=== PATIENT | female | born 1935 ===

== ENCOUNTER 2017-04-04 10:30 | Inpatient (IN) | payer OTHER ==
[2017-04-04 10:34] VITALS: BMI 35.9
[2017-04-04] MEDS ORDERED: Albuterol-Ipratrop 3 mg / 0.5 (3 ml) UD ONE (11:04)
--- NOTE | 2017-04-04 11:08 | C.PDOC ---
History Of Present Illness 81 y/o female c/o progressive SOB and wheezing for the last 2 weeks. Patient notes using her inhaler with no relief. Denies fever, chills, chest pain, palpitations, diaphoresis. No abdominal pain, nausea, or vomiting. Time Seen by Provider: 04/04/17 10:48 Chief Complaint (Nursing): Shortness Of Breath History Per: Patient History/Exam Limitations: no limitations Onset/Duration Of Symptoms: Days (2 weeks) Current Symptoms Are (Timing): Still Present Initiating Event: Upper Respiratory Illness Quality: Burning Current Respiratory Medications: See Home Med List Severity: Mild Associated Symptoms: Productive Cough. denies: Fever, Chills Recent travel outside of the [place]: No Additional History Per: Patient Past Medical History Reviewed: Historical Data, Nursing Documentation, Vital Signs Vital Signs: Last Vital Signs Temp 97.9 F 04/04/17 13:45 Pulse 84 04/04/17 13:45 Resp 16 04/04/17 13:45 BP 147/78 04/04/17 13:45 Pulse Ox 95 04/04/17 13:45 - Medical History PMH: Arthritis, Asthma, Bronchitis, HTN, Hypercholesterolemia, Pneumonia Denies: Chronic Kidney Disease Other Surgeries: abdominal Family History: States: Unknown Family Hx - Social History Hx Tobacco Use: No Hx Alcohol Use: No Hx Substance Use: No - Immunization History Hx Tetanus Toxoid Vaccination: No Hx Influenza Vaccination: No Hx Pneumococcal Vaccination: No Review Of Systems Except As Marked, All Systems Reviewed And Found Negative. Constitutional: Negative for: Fever, Chills, Sweats Cardiovascular: Negative for: Chest Pain, Palpitations Respiratory: Positive for: Cough, Shortness of Breath, Wheezing Gastrointestinal: Negative for: Nausea, Vomiting, Abdominal Pain Physical Exam - Physical Exam Appears: Non-toxic, No Acute Distress Skin: Warm, Dry Head: Atraumatic, Normacephalic Oral Mucosa: Moist Throat: Normal, No Erythema Chest: Symmetrical, No Tenderness Cardiovascular: Rhythm Regular, No Murmur Respiratory: Decreased Breath Sounds, No Rales, No Rhonchi, Wheezing ( Expiratory wheezing), Other (No chest pain or edema) Gastrointestinal/Abdominal: Soft, No Tenderness Back: Normal Inspection Extremity: Normal ROM, No Pedal Edema, Capillary Refill (<2secs) Neurological/Psych: Oriented x3 Gait: Steady ED Course And Treatment - Laboratory Results Result Diagrams: 04/04/17 11:11 04/04/17 11:11 Lab Interpretation: Normal ECG: Interpreted By Me ECG Rhythm: Sinus Rhythm, Nonspecific Changes ECG Interpretation: Normal O2 Sat by Pulse Oximetry: 98 (Nebulizer/RA) Pulse Ox Interpretation: Normal - Radiology CXR: Interpreted by Me CXR Interpretation: Yes: No Acute Disease Progress Note: Treated with duoneb x 3 and solumedrol IV. On re-evaluation mild expiratory wheeze Reassessment Condition: Improved - Physician Consult Information Physician Contacted: Marvin Goetz Jr. Outcome Of Conversation: admit Medical Decision Making Medical Decision Making: Plans: * Blood labs * EKG * CXR * ALbuterol * IV fluids * UA * Nebulizer Disposition Discussed With Dr.: Marvin Goetz Jr. Doctor Will See Patient In The: Hospital - Disposition Disposition: HOSPITALIZED Disposition Time: 13:20 Condition: STABLE - POA Present On Arrival: None - Clinical Impression Clinical Impression: Asthma, Dyspnea, Dyspnea - Scribe Statement The provider has reviewed the documentation as recorded by the Scribe Radha raza All medical record entries made by the Scribe were at my direction and personally dictated by me. I have reviewed the chart and agree that the record accurately reflects my personal performance of the history, physical exam, medical decision making, and the department course for this patient. I have also personally directed, reviewed, and agree with the discharge instructions and disposition. Decision To Admit - Pt Status Changed To: Hospital Disposition Of: Inpatient - Admit Certification Admit to Inpatient:: After my assessment, the patient will require hospitalization for at least two midnights. This is because of the severity of symptoms shown, intensity of services needed, and/or the medical risk in this patient being treated as an outpatient. - InPatient: Physician Admission Certification: I certify that this patient requires 2 or more midnights of care for the following reason:: Dyspnea. Asthma Exacerbation - . Bed Request Type: Regular Patient Diagnosis: Asthma, Dyspnea, Dyspnea
--- NOTE | 2017-04-04 11:12 | RAD ---
HISTORY: SOB COMPARISON: No prior. TECHNIQUE: Chest PA and lateral FINDINGS: LUNGS: No active pulmonary disease. PLEURA: No significant pleural effusion identified. No pneumothorax apparent. CARDIOVASCULAR: Cardiomediastinal silhouette is remarkable for air-fluid level posterior to the heart compatible the patient's prior esophagectomy/gastric pull through surgery with the proximal anastomosis identified at the left parasagittal mediastinum at the thoracic inlet. OSSEOUS STRUCTURES: No significant abnormalities. VISUALIZED UPPER ABDOMEN: Normal. OTHER FINDINGS: None. IMPRESSION: No acute cardiopulmonary disease appreciated. Post esophagectomy/ gastric pull-through mediastinal changes again evident.
[2017-04-04 11:23] LABS: BASO % 0.4 % (0.0-2.0); EOS # 0.3 K/uL (0.0-0.7); HEMATOCRIT 37.1 % (34.0-47.0); LYMPH # 1.6 K/uL (1.0-4.3); LYMPH % 18.9 % (20.0-40.0); MEAN CELL VOLUME 95.8 fL (81.0-99.0); MEAN CORPUSCULAR HEMOGLOBIN 32.4 pg (27.0-31.0); MEAN CORPUSCULAR HGB CONC 33.8 g/dL (33.0-37.0); MEAN PLATELET VOLUME 8.2 fL (7.2-11.7); MONO # 0.7 K/uL (0.0-0.8); MONO % 8.8 % (0.0-10.0); RED CELL DISTRIBUTION WIDTH 14.4 % (11.5-14.5); WHITE BLOOD COUNT 8.5 K/uL (4.8-10.8)
[2017-04-04] MEDS: Albuterol-Ipratrop 3 mg / 0.5 (3 ml) UD IH SCH ×3 (11:25→12:00)
[2017-04-04 11:32] LABS: ALB/GLOB RATIO 1.1 (1.0-2.1); ALKALINE PHOSPHATASE 70 U/L (38-126); ALT/SGPT 35 U/L (9-52); AST/SGOT 17 U/L (14-36); BILIRUBIN,TOTAL 0.4 mg/dL (0.2-1.3); BLOOD UREA NITROGEN 26 mg/dL (7-17); CALCIUM 8.7 mg/dl (8.6-10.4); CARBON DIOXIDE 25 mmol/L (22-30); CHLORIDE 103 mmol/L (98-107); GFR AFRICAN-AMERICAN 52; GLUCOSE,RANDOM 99 mg/dL (65-105); POTASSIUM 3.7 mmol/L (3.6-5.2); SODIUM 137 mmol/L (132-148); TOTAL PROTEIN 7.3 g/dL (6.3-8.3)
[2017-04-04 13:34] LABS: RBC URINE < 1 /hpf (0-3); URINE BILIRUBIN NEGATIVE (NEGATIVE); URINE BLOOD NEGATIVE (NEGATIVE); URINE COLOR Yellow (YELLOW); URINE GLUCOSE (UA) NORMAL (Normal); URINE KETONE NEGATIVE (NEGATIVE); URINE LEUKOCYTE ESTERASE NEG Leu/uL (Negative); URINE PROTEIN NEGATIVE (NEGATIVE); URINE UROBILINOGEN NORMAL mg/dL (0.2-1.0); WBC URINE 2 /hpf (0-5)
--- NOTE | 2017-04-04 15:01 | CP.PCM.HP ---
History of Present Illness - History of Present Illness History of Present Illness: CC: SOB, Asthma Exacerbation HPI: 81 year old female with PMH of chronic asthma presented to the ED this morning complaining of shortness of breath and dyspnea, which has gradually worsened over the past two weeks. Patient awoke in the middle of the night unable to breathe, used an "inhalation machine" which alleviated her symptoms, and then fell back to sleep. However, she awoke again a few hours later unable to breathe, and this time, her "inhalation machine" did not help, and so the patient asked her son to bring her to the hospital. The patient has had prior hospitalizations associated with her chronic asthma and associated complications. When seen in the ED, she complained of continued SOB, dyspnea, productive cough, weakness, intermittent headache, intermittent sore throat, urinary frequency, easy bruising, and hand swelling. Patient denied fever, chills, vision and hearing changes, dizziness, chest pain, palpitations, nausea , vomiting, diarrhea, constipation, hematemesis, hematochezia, dysuria, hematuria, leg pain and swelling, weight change and recent illness. PMH: Asthma, Bronchitis, HTN, HLD, Acid Reflux, Arthritis, Pneumonia, Urinary Incontinence PSH: Esophagectomy, Hysterectomy Medications: Duoneb 3 ml q6, Breo Ellipta 100-25 Mcg daily, Valsartan-Hctz 80- 12.5 mg daily, Crestor 10 mg daily, Nexium 40 mg daily Allergies: Aspirin, Ciprofloxacin, Ciprofloxacin HCl, Nitrofuantoin, Nitrofuantoin Macrocrystalline, Penicillin, Sulfa Family History: Father from metastatic Prostate Cancer, mother from Tuberculosis Social History: Denies tobacco and drug use, drinks champagne and wine socially ; , lives with son Present on Admission - Present on Admission Any Indicators Present on Admission: No Review of Systems - Review of Systems All systems: reviewed and no additional remarkable complaints except (as per HPI ) Past Patient History - Infectious Disease Hx of Infectious Diseases: None - Past Medical History & Family History Past Medical History?: Yes - Past Social History Smoking Status: Never Smoked - CARDIAC Hx Hypercholesterolemia: Yes Hx Hypertension: Yes - PULMONARY Hx Asthma: Yes Hx Bronchitis: Yes Hx Pneumonia: Yes - NEUROLOGICAL Hx Neurological Disorder: No - HEENT Hx HEENT Problems: No Other/Comment: WEARS GLASSES - RENAL Hx Chronic Kidney Disease: No - ENDOCRINE/METABOLIC Hx Endocrine Disorders: No - HEMATOLOGICAL/ONCOLOGICAL Hx Blood Disorders: No - INTEGUMENTARY Hx Dermatological Problems: No - MUSCULOSKELETAL/RHEUMATOLOGICAL Hx Arthritis: Yes - GASTROINTESTINAL Hx Gastrointestinal Disorders: Yes Hx Gastroesophageal Reflux: Yes Other/Comment: hx of esophageal CA - GENITOURINARY/GYNECOLOGICAL Hx Genitourinary Disorders: Yes - PSYCHIATRIC Hx Substance Use: No - SURGICAL HISTORY Hx Surgeries: Yes Hx Breast Biopsy: Yes Hx Hysterectomy: Yes Hx Orthopedic Surgery: Yes (RTKR) Other/Comment: ESOPHAGEAL SX - ANESTHESIA Hx Anesthesia: Yes Hx Anesthesia Reactions: No Hx Malignant Hyperthermia: No Meds Allergies/Adverse Reactions: Allergies Allergy/AdvReac Type Severity Reaction Status Date / Time aspirin Allergy Severe RASH Verified 03/04/16 07:21 ciprofloxacin [From Cipro] Allergy Severe RASH Verified 03/04/16 07:21 ciprofloxacin HCl Allergy Severe RASH Verified 03/04/16 07:21 [From Cipro] nitrofurantoin Allergy Severe RASH Verified 03/04/16 07:21 [From Macrobid] nitrofurantoin Allergy Severe RASH Verified 03/04/16 07:21 macrocrystalline [From Macrobid] Penicillins Allergy Severe RASH Verified 03/04/16 07:21 Sulfa (Sulfonamide Allergy Severe RASH Verified 03/04/16 07:21 Antibiotics) Physical Exam - Constitutional Appears: Well, Non-toxic, No Acute Distress - Head Exam Head Exam: ATRAUMATIC, NORMAL INSPECTION, NORMOCEPHALIC - Eye Exam Eye Exam: EOMI - ENT Exam ENT Exam: Mucous Membranes Moist - Respiratory Exam Respiratory Exam: Decreased Breath Sounds, Wheezes, NORMAL BREATHING PATTERN - Cardiovascular Exam Cardiovascular Exam: REGULAR RHYTHM, RRR - Psychiatric Exam Psychiatric exam: Normal Affect, Normal Mood - Skin Skin Exam: Normal Color, Warm Results - Vital Signs Recent Vital Signs: Last Vital Signs Temp 97.9 F 04/04/17 13:45 Pulse 84 04/04/17 13:45 Resp 16 04/04/17 13:45 BP 147/78 04/04/17 13:45 Pulse Ox 98 04/04/17 14:53 - Labs Result Diagrams: 04/04/17 11:11 04/04/17 11:11 Labs: Laboratory Results - last 24 hr 04/04/17 04/04/17 04/04/17 11:11 11:11 13:30 WBC 8.5 RBC 3.87 Hgb 12.5 Hct 37.1 MCV 95.8 MCH 32.4 H MCHC 33.8 RDW 14.4 Plt Count 231 MPV 8.2 Neut % (Auto) 68.9 Lymph % (Auto) 18.9 L Hubbard % (Auto) 8.8 Eos % (Auto) 3.0 Baso % (Auto) 0.4 Neut # 5.9 Lymph # 1.6 Hubbard # 0.7 Eos # 0.3 Baso # 0.0 Sodium 137 Potassium 3.7 Chloride 103 Carbon Dioxide 25 Anion Gap 12 BUN 26 H Creatinine 1.2 Est GFR ( Amer) 52 Est GFR (Non-Af Amer) 43 Random Glucose 99 Calcium 8.7 Total Bilirubin 0.4 AST 17 ALT 35 Alkaline Phosphatase 70 CK-MB (Mass) 0.38 Troponin I < 0.0120 NT-Pro-B Natriuret Pep 409 Total Protein 7.3 Albumin 3.8 Globulin 3.5 Albumin/Globulin Ratio 1.1 Urine Color Yellow Urine Clarity Clear Urine pH 6.0 Ur Specific [place] 1.014 Urine Protein Negative Urine Glucose (UA) Normal Urine Ketones Negative Urine Blood Negative Urine Nitrate Negative Urine Bilirubin Negative Urine Urobilinogen Normal Ur Leukocyte Esterase Neg Urine WBC (Auto) 2 Urine RBC (Auto) < 1 Ur Squamous Epith Cells 8 H Assessment & Plan (1) Asthma exacerbation Assessment and Plan: * CXR: No acute cardiopulmonary disease appreciated. Post esophagectomy/ gastric pull-through mediastinal changes again evident. * Methylprednisolone 125 mg IVP given in ED x1 * Duonebs Q6H * Advair Q12 * 3L O2 by NC PRN * Continue to monitor O2 sat Status: Acute (2) Hypertension Assessment and Plan: * Cozaar 50 mg PO QD * HCTZ 12.5 mg PO QD * Monitor Status: Chronic (3) Hyperlipidemia Assessment and Plan: * Crestor 10 mg Status: Acute (4) GERD (gastroesophageal reflux disease) Assessment and Plan: * s/p esophagectomy with resulting in acid reflux * Protonix 40 PO QD Status: Chronic (5) Prophylactic measure Assessment and Plan: * Heparin 5000 U SC Q8 * SCDs Status: Acute
[2017-04-04] MEDS: Fluticasone-Salmeterol 100-50mcg Diskus INH SCH (20:36)
[2017-04-04] MEDS: Albuterol-Ipratrop 3 mg / 0.5 (3 ml) UD INH SCH (20:37)
[2017-04-05] MEDS: Albuterol-Ipratrop 3 mg / 0.5 (3 ml) UD INH SCH ×4 (01:37→19:57)
[2017-04-05] MEDS: Fluticasone-Salmeterol 100-50mcg Diskus INH SCH ×2 (07:30→19:57)
[2017-04-05 07:41] LABS: BASO % 0.2 % (0.0-2.0); HEMATOCRIT 37.1 % (34.0-47.0); LYMPH # 1.1 K/uL (1.0-4.3); LYMPH % 8.7 % (20.0-40.0); MEAN CELL VOLUME 96.3 fL (81.0-99.0); MEAN CORPUSCULAR HEMOGLOBIN 31.8 pg (27.0-31.0); MEAN PLATELET VOLUME 8.4 fL (7.2-11.7); MONO # 0.4 K/uL (0.0-0.8); MONO % 2.9 % (0.0-10.0); PLATELET COUNT 241 K/uL (130-400); RED CELL DISTRIBUTION WIDTH 14.5 % (11.5-14.5)
[2017-04-05 07:49] LABS: WHITE BLOOD COUNT 12.8 K/uL (4.8-10.8)
[2017-04-05 08:02] LABS: ALB/GLOB RATIO 1.7 (1.0-2.1); ALKALINE PHOSPHATASE 75 U/L (38-126); ALT/SGPT 25 U/L (9-52); AST/SGOT 20 U/L (14-36); BILIRUBIN,TOTAL 0.6 mg/dL (0.2-1.3); BLOOD UREA NITROGEN 28 mg/dL (7-17); CALCIUM 8.9 mg/dl (8.6-10.4); CARBON DIOXIDE 24 mmol/L (22-30); CHLORIDE 99 mmol/L (98-107); GFR AFRICAN-AMERICAN > 60; GLUCOSE,RANDOM 160 mg/dL (65-105); MAGNESIUM 1.6 mg/dL (1.6-2.3); PHOSPHOROUS 3.2 mg/dL (2.5-4.5); POTASSIUM 3.6 mmol/L (3.6-5.2); SODIUM 134 mmol/L (132-148); TOTAL PROTEIN 6.3 g/dL (6.3-8.3)
[2017-04-05 08:48] LABS: NEUTROPHIL 90 % (50-75); TOTAL CELLS COUNTED 100
[2017-04-05] MEDS ORDERED: Pneumococcal 23-Valent Vaccine IM ONE (10:00)
[2017-04-05] MEDS ORDERED: Influenza Vaccine 60 mcg/0.5 mL SYR (4YR UP) IM ONE (10:00)
[2017-04-05] MEDS: Pantoprazole 40 mg EC Tab PO SCH (10:43)
--- NOTE | 2017-04-05 17:17 | CP.PCM.CON ---
History of Present Illness - History of Present Illness History of Present Illness: reason for consultation: shortness of breath 81-year-old female with history of asthma, GERD, arthritis, hypertension presented to emergency room with worsening shortness of breath. Patient was seen in the office and started on prednisone which patient states did not help. Denies fever chills, denies chest pain. PMH: Asthma, Bronchitis, HTN, HLD, Acid Reflux, Arthritis, Pneumonia, Urinary Incontinence PSH: Esophagectomy, Hysterectomy Medications: Duoneb 3 ml q6, Breo Ellipta 100-25 Mcg daily, Valsartan-Hctz 80- 12.5 mg daily, Crestor 10 mg daily, Nexium 40 mg daily Allergies: Aspirin, Ciprofloxacin, Ciprofloxacin HCl, Nitrofuantoin, Nitrofuantoin Macrocrystalline, Penicillin, Sulfa Family History: Father from metastatic Prostate Cancer, mother from Tuberculosis Social History: Denies tobacco and drug use, drinks champagne and wine socially ; , lives with son Review of Systems - Review of Systems All systems: reviewed and no additional remarkable complaints except (worsening shortness of breath) Past Patient History - Infectious Disease Hx of Infectious Diseases: None - Past Medical History & Family History Past Medical History?: Yes - Past Social History Smoking Status: Never Smoked - CARDIAC Hx Hypercholesterolemia: Yes Hx Hypertension: Yes - PULMONARY Hx Asthma: Yes Hx Bronchitis: Yes Hx Pneumonia: Yes - NEUROLOGICAL Hx Neurological Disorder: No - HEENT Hx HEENT Problems: No Other/Comment: WEARS GLASSES - RENAL Hx Chronic Kidney Disease: No - ENDOCRINE/METABOLIC Hx Endocrine Disorders: No - HEMATOLOGICAL/ONCOLOGICAL Hx Blood Disorders: No - INTEGUMENTARY Hx Dermatological Problems: No - MUSCULOSKELETAL/RHEUMATOLOGICAL Hx Arthritis: Yes - GASTROINTESTINAL Hx Gastrointestinal Disorders: Yes Hx Gastroesophageal Reflux: Yes Other/Comment: hx of esophageal CA - GENITOURINARY/GYNECOLOGICAL Hx Genitourinary Disorders: Yes - PSYCHIATRIC Hx Substance Use: No - SURGICAL HISTORY Hx Surgeries: Yes Hx Breast Biopsy: Yes Hx Hysterectomy: Yes Hx Orthopedic Surgery: Yes (RTKR) Other/Comment: ESOPHAGEAL SX - ANESTHESIA Hx Anesthesia: Yes Hx Anesthesia Reactions: No Hx Malignant Hyperthermia: No Meds Allergies/Adverse Reactions: Allergies Allergy/AdvReac Type Severity Reaction Status Date / Time aspirin Allergy Severe RASH Verified 03/04/16 07:21 ciprofloxacin [From Cipro] Allergy Severe RASH Verified 03/04/16 07:21 ciprofloxacin HCl Allergy Severe RASH Verified 03/04/16 07:21 [From Cipro] nitrofurantoin Allergy Severe RASH Verified 03/04/16 07:21 [From Macrobid] nitrofurantoin Allergy Severe RASH Verified 03/04/16 07:21 macrocrystalline [From Macrobid] Penicillins Allergy Severe RASH Verified 03/04/16 07:21 Sulfa (Sulfonamide Allergy Severe RASH Verified 03/04/16 07:21 Antibiotics) - Medications Medications: Current Medications Albuterol/Ipratropium (Duoneb 3 Mg/0.5 Mg (3 Ml) Ud) 3 ml INH RQ6 [facility] Last Admin: 04/05/17 13:10 Dose: 3 ml Heparin Sodium (Porcine) (Heparin) 5,000 units SC Q8 [facility] Last Admin: 04/05/17 13:36 Dose: 5,000 units Hydrochlorothiazide (Microzide) 12.5 mg PO DAILY [facility] Last Admin: 04/05/17 10:42 Dose: 12.5 mg Losartan Potassium (Cozaar) 50 mg PO DAILY [facility] Last Admin: 04/05/17 10:43 Dose: 50 mg Methylprednisolone (Solu-Medrol) 40 mg IV Q8 [facility] Pantoprazole Sodium (Protonix Ec Tab) 40 mg PO DAILY [facility] Last Admin: 04/05/17 10:43 Dose: 40 mg Rosuvastatin Calcium (Crestor) 10 mg PO HS [facility] Last Admin: 04/04/17 21:30 Dose: Not Given Fluticasone/Salmeterol (Advair Diskus 100/50) 1 puff INH RQ12 [facility] Last Admin: 04/05/17 07:30 Dose: 1 puff Physical Exam - Head Exam Head Exam: ATRAUMATIC, NORMOCEPHALIC - Eye Exam Eye Exam: Normal appearance - ENT Exam ENT Exam: Mucous Membranes Moist - Neck Exam Neck exam: Positive for: Normal Inspection - Respiratory Exam Respiratory Exam: Clear to Auscultation Bilateral - Cardiovascular Exam Cardiovascular Exam: REGULAR RHYTHM - GI/Abdominal Exam GI & Abdominal Exam: Normal Bowel Sounds, Soft Results - Vital Signs Recent Vital Signs: Last Vital Signs Temp 98.2 F 04/05/17 15:30 Pulse 86 04/05/17 15:30 Resp 20 04/05/17 15:30 BP 139/79 04/05/17 15:30 Pulse Ox 97 11/16/17 15:30 - Labs Result Diagrams: 04/05/17 07:35 04/05/17 07:35 Labs: Laboratory Results - last 24 hr 04/05/17 04/05/17 07:35 07:35 WBC 12.8 H D RBC 3.86 Hgb 12.3 Hct 37.1 MCV 96.3 MCH 31.8 H MCHC 33.0 RDW 14.5 Plt Count 241 MPV 8.4 Neut % (Auto) 88.2 H Lymph % (Auto) 8.7 L Harvey % (Auto) 2.9 Eos % (Auto) 0.0 Baso % (Auto) 0.2 Neut # 11.3 H Lymph # 1.1 Harvey # 0.4 Eos # 0.0 Baso # 0.0 Neutrophils % (Manual) 90 H Lymphocytes % (Manual) 8 L Monocytes % (Manual) 2 Platelet Estimate Normal RBC Morphology Normal Sodium 134 Potassium 3.6 Chloride 99 Carbon Dioxide 24 Anion Gap 16 BUN 28 H Creatinine 1.0 Est GFR ( Amer) > 60 Est GFR (Non-Af Amer) 53 Random Glucose 160 H Calcium 8.9 Phosphorus 3.2 Magnesium 1.6 Total Bilirubin 0.6 AST 20 ALT 25 Alkaline Phosphatase 75 Total Protein 6.3 Albumin 4.0 Globulin 2.4 Albumin/Globulin Ratio 1.7 Assessment & Plan (1) Asthma exacerbation Status: Acute Comment: continue IV steroids, nebulizer treatment. CAT scan of the chest (2) GERD (gastroesophageal reflux disease) Status: Chronic
--- NOTE | 2017-04-05 18:48 | CT ---
PROCEDURE: CT Chest without contrast HISTORY: COUGH AND DYSPNEA Relevant surgical history: Status post esophagectomy and gastric pull-through COMPARISON: 03/07/2016. CT thorax April 04, 2017. Two-view chest TECHNIQUE: Contiguous axial images were obtained through the chest without intravenous contrast enhancement. Sagittal and coronal reconstructions were performed. Radiation dose (DLP): 531.12 mGy-cm. This CT exam was performed using one or more of the following dose reduction techniques: Automated exposure control, adjustment of the mA and/or kV according to patient size, and/or use of iterative reconstruction technique. FINDINGS: LUNGS: Peripheral infiltrate or compressive atelectasis in the superior segment of the left lower lobe adjacent to the stomach residing in the left yareli thorax. Similar findings identified on the prior study therefore presumed to be chronic MEDIASTINUM: Unremarkable thoracic aorta. No aneurysm. Normal sized heart. Main pulmonary artery unremarkable. No vascular congestion. Stable findings related to prior esophagectomy and gastric pull-through in the left yareli thorax and mediastinum. PLEURA: No pleural fluid. No pneumothorax. BONES: No fracture. No destructive lesion. UPPER ABDOMEN: Grossly unremarkable. The pancreas is atrophic, there is a stable splenic scar. No acute abnormalities visualized abdomen and upper retroperitoneum. OTHER FINDINGS: None. IMPRESSION: No acute findings related to/accounting for the clinical presentation. No significant interval change compared to the prior examination(s).
[2017-04-05] MEDS: MethylPREDNISolone 40 mg Vial IV SCH (21:59)
[2017-04-05] MEDS ORDERED: MethylPREDNISolone 40 mg Vial IV SCH (22:00)
--- NOTE | 2017-04-05 22:26 | CARD ---
APPROVED REPORT EKG Measurement Heart [id number] <Conclusion> Normal sinus rhythm Nonspecific T wave abnormality Abnormal ECG
[2017-04-06] MEDS: Albuterol-Ipratrop 3 mg / 0.5 (3 ml) UD INH SCH ×4 (01:29→19:40)
[2017-04-06] MEDS: MethylPREDNISolone 40 mg Vial IV SCH ×3 (06:11→21:38)
[2017-04-06 07:13] LABS: BASO % 0.2 % (0.0-2.0); HEMATOCRIT 37.1 % (34.0-47.0); LYMPH # 0.7 K/uL (1.0-4.3); LYMPH % 5.7 % (20.0-40.0); MEAN CELL VOLUME 96.6 fL (81.0-99.0); MEAN CORPUSCULAR HEMOGLOBIN 32.2 pg (27.0-31.0); MEAN CORPUSCULAR HGB CONC 33.3 g/dL (33.0-37.0); MONO # 0.1 K/uL (0.0-0.8); MONO % 1.3 % (0.0-10.0); PLATELET COUNT 239 K/uL (130-400); RED CELL DISTRIBUTION WIDTH 14.7 % (11.5-14.5); WHITE BLOOD COUNT 11.8 K/uL (4.8-10.8)
[2017-04-06 07:35] LABS: ALB/GLOB RATIO 1.2 (1.0-2.1); BILIRUBIN,TOTAL 0.3 mg/dL (0.2-1.3); CALCIUM 9.2 mg/dl (8.6-10.4); MAGNESIUM 1.7 mg/dL (1.6-2.3); PHOSPHOROUS 3.9 mg/dL (2.5-4.5); POTASSIUM 4.2 mmol/L (3.6-5.2); TOTAL PROTEIN 7.1 g/dL (6.3-8.3)
[2017-04-06] MEDS ORDERED: Fluticasone-Salmeterol 250-50mcg Diskus INH SCH (08:00)
[2017-04-06] MEDS: Fluticasone-Salmeterol 100-50mcg Diskus INH SCH ×2 (08:19→19:40)
[2017-04-06 09:13] LABS: NEUTROPHIL 90 % (50-75); TOTAL CELLS COUNTED 100
[2017-04-06 09:14] LABS: LARGE PLATELETS PRESENT
[2017-04-06] MEDS: Pantoprazole 40 mg EC Tab PO SCH (09:18)
--- NOTE | 2017-04-06 14:16 | CP.PCM.PN ---
Subjective - Date & Time of Evaluation Date of Evaluation: 04/06/17 Time of Evaluation: 09:20 - Subjective Subjective: patient seen and examined Still complaining of shortness of breath on minimal exertion and slight cough CAT scan of the chest showed no active disease Wheezing Afebrile Objective - Vital Signs/Intake and Output Vital Signs (last 24 hours): Temp Pulse Resp BP Pulse Ox 97.7 F 75 20 144/83 95 04/06/17 08:01 04/06/17 08:01 04/06/17 08:01 04/06/17 08:01 04/06/17 08:01 Intake and Output: 04/06/17 04/06/17 06:59 18:59 Intake Total 600 Balance 600 - Medications Medications: Current Medications Albuterol/Ipratropium (Duoneb 3 Mg/0.5 Mg (3 Ml) Ud) 3 ml INH RQ6 [facility] Last Admin: 04/06/17 13:36 Dose: 3 ml Heparin Sodium (Porcine) (Heparin) 5,000 units SC Q8 [facility] Last Admin: 04/06/17 07:32 Dose: 5,000 units Hydrochlorothiazide (Microzide) 12.5 mg PO DAILY [facility] Last Admin: 04/06/17 09:18 Dose: 12.5 mg Losartan Potassium (Cozaar) 50 mg PO DAILY [facility] Last Admin: 04/06/17 09:18 Dose: 50 mg Methylprednisolone (Solu-Medrol) 40 mg IV Q8 [facility] Last Admin: 04/06/17 06:11 Dose: 40 mg Pantoprazole Sodium (Protonix Ec Tab) 40 mg PO DAILY [facility] Last Admin: 04/06/17 09:18 Dose: 40 mg Rosuvastatin Calcium (Crestor) 10 mg PO HS [facility] Last Admin: 04/05/17 21:59 Dose: 10 mg Fluticasone/Salmeterol (Advair Diskus 100/50) 1 puff INH RQ12 [facility] Last Admin: 04/06/17 08:19 Dose: 1 puff - Labs Labs: 04/06/17 07:03 04/06/17 07:03 - Head Exam Head Exam: ATRAUMATIC, NORMOCEPHALIC - ENT Exam ENT Exam: Mucous Membranes Moist - Neck Exam Neck Exam: Normal Inspection - Respiratory Exam Respiratory Exam: Rhonchi, Wheezes - Cardiovascular Exam Cardiovascular Exam: REGULAR RHYTHM - GI/Abdominal Exam GI & Abdominal Exam: Soft, Normal Bowel Sounds - Extremities Exam Extremities Exam: Normal Inspection - Neurological Exam Neurological Exam: Alert, Oriented x3 Assessment and Plan (1) Asthma exacerbation Assessment & Plan: continue nebulizer treatment, IV steroids Start antibiotics Status: Acute (2) GERD (gastroesophageal reflux disease) Status: Chronic
[2017-04-06] MEDS ORDERED: Azithromycin 500 MG in Sodium Chloride 0.9% 250 ML IVPB SCH (16:00)
--- NOTE | 2017-04-06 16:28 | CP.PCM.PN ---
Subjective - Date & Time of Evaluation Date of Evaluation: 04/06/17 Time of Evaluation: 16:28 - Subjective Subjective: patient seen and examined at bedside. Doing well with no complaints at this time breathing better then yesterday but still having some wheezing Objective - Vital Signs/Intake and Output Vital Signs (last 24 hours): Temp Pulse Resp BP Pulse Ox 97.7 F 84 20 183/129 H 97 04/06/17 08:01 04/06/17 14:57 04/06/17 08:01 04/06/17 14:57 04/06/17 14:57 Intake and Output: 04/06/17 04/06/17 06:59 18:59 Intake Total 600 Balance 600 - Medications Medications: Current Medications Albuterol/Ipratropium (Duoneb 3 Mg/0.5 Mg (3 Ml) Ud) 3 ml INH RQ6 [facility] Last Admin: 04/06/17 13:36 Dose: 3 ml Heparin Sodium (Porcine) (Heparin) 5,000 units SC Q8 [facility] Last Admin: 04/06/17 15:26 Dose: 5,000 units Hydrochlorothiazide (Microzide) 12.5 mg PO DAILY [facility] Last Admin: 04/06/17 09:18 Dose: 12.5 mg Azithromycin 500 mg/ Sodium (Chloride) 250 mls @ 250 mls/hr IVPB Q24H [facility] Losartan Potassium (Cozaar) 50 mg PO DAILY [facility] Last Admin: 04/06/17 09:18 Dose: 50 mg Methylprednisolone (Solu-Medrol) 40 mg IV Q8 [facility] Last Admin: 04/06/17 15:26 Dose: 40 mg Pantoprazole Sodium (Protonix Ec Tab) 40 mg PO DAILY [facility] Last Admin: 04/06/17 09:18 Dose: 40 mg Rosuvastatin Calcium (Crestor) 10 mg PO HS [facility] Last Admin: 04/05/17 21:59 Dose: 10 mg Fluticasone/Salmeterol (Advair Diskus 100/50) 1 puff INH RQ12 [facility] Last Admin: 04/06/17 08:19 Dose: 1 puff - Labs Labs: 04/06/17 07:03 04/06/17 07:03 - Constitutional Appears: Well, Non-toxic, No Acute Distress - Head Exam Head Exam: ATRAUMATIC, NORMAL INSPECTION, NORMOCEPHALIC - Eye Exam Eye Exam: EOMI - ENT Exam ENT Exam: Mucous Membranes Moist - Respiratory Exam Respiratory Exam: Wheezes, NORMAL BREATHING PATTERN - Cardiovascular Exam Cardiovascular Exam: REGULAR RHYTHM - GI/Abdominal Exam GI & Abdominal Exam: Soft, Normal Bowel Sounds. absent: Distended, Tenderness - Extremities Exam Extremities Exam: absent: Joint Swelling, Tenderness - Back Exam Back Exam: absent: CVA tenderness (L), CVA tenderness (R) - Neurological Exam Neurological Exam: Alert, Awake, Oriented x3 - Psychiatric Exam Psychiatric exam: Normal Affect, Normal Mood - Skin Skin Exam: Dry, Intact, Normal Color, Warm Assessment and Plan (1) Asthma exacerbation Assessment & Plan: Pulm (Teodoro) Duoneb Solumedrol 40 IV Q8 Advair Status: Acute (2) Hypertension Assessment & Plan: Microzide 12.5 PO QD Cozaar 50 PO QD Status: Chronic (3) Hyperlipidemia Assessment & Plan: Crestor 10 PO HS Status: Chronic (4) Prophylactic measure Assessment & Plan: Protonix 40 PO QD Heparin 5000 SC Q8 Status: Acute
--- NOTE | 2017-04-06 23:41 | CP.PCM.CON ---
Past Patient History - Infectious Disease Hx of Infectious Diseases: None - Past Medical History & Family History Past Medical History?: Yes - Past Social History Smoking Status: Never Smoked - CARDIAC Hx Hypercholesterolemia: Yes Hx Hypertension: Yes - PULMONARY Hx Asthma: Yes Hx Bronchitis: Yes Hx Pneumonia: Yes - NEUROLOGICAL Hx Neurological Disorder: No - HEENT Hx HEENT Problems: No Other/Comment: WEARS GLASSES - RENAL Hx Chronic Kidney Disease: No - ENDOCRINE/METABOLIC Hx Endocrine Disorders: No - HEMATOLOGICAL/ONCOLOGICAL Hx Blood Disorders: No - INTEGUMENTARY Hx Dermatological Problems: No - MUSCULOSKELETAL/RHEUMATOLOGICAL Hx Arthritis: Yes - GASTROINTESTINAL Hx Gastrointestinal Disorders: Yes Hx Gastroesophageal Reflux: Yes Other/Comment: hx of esophageal CA - GENITOURINARY/GYNECOLOGICAL Hx Genitourinary Disorders: Yes - PSYCHIATRIC Hx Substance Use: No - SURGICAL HISTORY Hx Surgeries: Yes Hx Breast Biopsy: Yes Hx Hysterectomy: Yes Hx Orthopedic Surgery: Yes (RTKR) Other/Comment: ESOPHAGEAL SX - ANESTHESIA Hx Anesthesia: Yes Hx Anesthesia Reactions: No Hx Malignant Hyperthermia: No Meds Allergies/Adverse Reactions: Allergies Allergy/AdvReac Type Severity Reaction Status Date / Time aspirin Allergy Severe RASH Verified 03/04/16 07:21 ciprofloxacin [From Cipro] Allergy Severe RASH Verified 03/04/16 07:21 ciprofloxacin HCl Allergy Severe RASH Verified 03/04/16 07:21 [From Cipro] nitrofurantoin Allergy Severe RASH Verified 03/04/16 07:21 [From Macrobid] nitrofurantoin Allergy Severe RASH Verified 03/04/16 07:21 macrocrystalline [From Macrobid] Penicillins Allergy Severe RASH Verified 03/04/16 07:21 Sulfa (Sulfonamide Allergy Severe RASH Verified 03/04/16 07:21 Antibiotics) - Medications Medications: Current Medications Albuterol/Ipratropium (Duoneb 3 Mg/0.5 Mg (3 Ml) Ud) 3 ml INH RQ6 [facility] Last Admin: 04/06/17 19:40 Dose: 3 ml Heparin Sodium (Porcine) (Heparin) 5,000 units SC Q8 [facility] Last Admin: 04/06/17 21:38 Dose: 5,000 units Hydrochlorothiazide (Microzide) 12.5 mg PO DAILY [facility] Last Admin: 04/06/17 09:18 Dose: 12.5 mg Azithromycin 500 mg/ Sodium (Chloride) 250 mls @ 250 mls/hr IVPB Q24H [facility] Last Admin: 04/06/17 17:00 Dose: 250 mls/hr Losartan Potassium (Cozaar) 50 mg PO DAILY [facility] Last Admin: 04/06/17 09:18 Dose: 50 mg Methylprednisolone (Solu-Medrol) 40 mg IV Q8 [facility] Last Admin: 04/06/17 21:38 Dose: 40 mg Pantoprazole Sodium (Protonix Ec Tab) 40 mg PO DAILY [facility] Last Admin: 04/06/17 09:18 Dose: 40 mg Rosuvastatin Calcium (Crestor) 10 mg PO HS [facility] Last Admin: 04/06/17 21:38 Dose: 10 mg Fluticasone/Salmeterol (Advair Diskus 100/50) 1 puff INH RQ12 [facility] Last Admin: 04/06/17 19:40 Dose: 1 puff Physical Exam - Constitutional Appears: Well - Head Exam Head Exam: ATRAUMATIC, NORMAL INSPECTION, NORMOCEPHALIC - Eye Exam Eye Exam: EOMI, Normal appearance, PERRL Pupil Exam: NORMAL ACCOMODATION, PERRL - ENT Exam ENT Exam: Mucous Membranes Moist, Normal Exam - Neck Exam Neck exam: Positive for: Normal Inspection - Respiratory Exam Respiratory Exam: Decreased Breath Sounds - Cardiovascular Exam Cardiovascular Exam: REGULAR RHYTHM, +S1, +S2 - GI/Abdominal Exam GI & Abdominal Exam: Diminished Bowel Sounds, Soft - Rectal Exam Rectal Exam: Deferred Results - Vital Signs Recent Vital Signs: Last Vital Signs Temp 97.4 F L 04/06/17 16:39 Pulse 94 H 04/06/17 16:39 Resp 22 04/06/17 16:39 BP 155/92 H 04/06/17 16:39 Pulse Ox 97 04/06/17 16:39 - Labs Result Diagrams: 04/06/17 07:03 04/06/17 07:03 Labs: Laboratory Results - last 24 hr 04/06/17 04/06/17 07:03 07:03 WBC 11.8 H RBC 3.84 Hgb 12.3 Hct 37.1 MCV 96.6 MCH 32.2 H MCHC 33.3 RDW 14.7 H Plt Count 239 MPV 9.0 Neut % (Auto) 92.8 H Lymph % (Auto) 5.7 L Stephenson % (Auto) 1.3 Eos % (Auto) 0.0 Baso % (Auto) 0.2 Neut # 11.0 H Lymph # 0.7 L Stephenson # 0.1 Eos # 0.0 Baso # 0.0 Neutrophils % (Manual) 90 H Lymphocytes % (Manual) 8 L Monocytes % (Manual) 2 Platelet Estimate Normal Large Platelets Present Sodium 134 Potassium 4.2 Chloride 99 Carbon Dioxide 22 Anion Gap 17 BUN 30 H Creatinine 1.2 Est GFR ( Amer) 52 Est GFR (Non-Af Amer) 43 Random Glucose 228 H Calcium 9.2 Phosphorus 3.9 Magnesium 1.7 Total Bilirubin 0.3 AST 24 ALT 30 Alkaline Phosphatase 65 Total Protein 7.1 Albumin 3.8 Globulin 3.2 Albumin/Globulin Ratio 1.2
[2017-04-07] MEDS: Albuterol-Ipratrop 3 mg / 0.5 (3 ml) UD INH SCH ×4 (02:12→19:57)
[2017-04-07] MEDS: MethylPREDNISolone 40 mg Vial IV SCH ×3 (05:44→21:20)
[2017-04-07 08:12] LABS: BASO % 0.2 % (0.0-2.0); EOS % 0.1 % (0.0-4.0); HEMATOCRIT 38.4 % (34.0-47.0); LYMPH # 0.8 K/uL (1.0-4.3); LYMPH % 5.6 % (20.0-40.0); MEAN CELL VOLUME 96.9 fL (81.0-99.0); MEAN CORPUSCULAR HEMOGLOBIN 32.5 pg (27.0-31.0); MEAN CORPUSCULAR HGB CONC 33.5 g/dL (33.0-37.0); MEAN PLATELET VOLUME 9.4 fL (7.2-11.7); MONO # 0.2 K/uL (0.0-0.8); MONO % 1.7 % (0.0-10.0); NRBC % 0.1 % (0.0-2.0); PLATELET COUNT 256 K/uL (130-400); RED CELL DISTRIBUTION WIDTH 14.7 % (11.5-14.5); WHITE BLOOD COUNT 14.1 K/uL (4.8-10.8)
[2017-04-07 08:58] LABS: ALB/GLOB RATIO 1.6 (1.0-2.1); BILIRUBIN,TOTAL 0.6 mg/dL (0.2-1.3); CALCIUM 9.1 mg/dl (8.6-10.4); MAGNESIUM 1.8 mg/dL (1.6-2.3); PHOSPHOROUS 3.9 mg/dL (2.5-4.5); POTASSIUM 3.8 mmol/L (3.6-5.2); TOTAL PROTEIN 6.3 g/dL (6.3-8.3)
[2017-04-07] MEDS: Pantoprazole 40 mg EC Tab PO SCH (09:18)
[2017-04-07] MEDS: Fluticasone-Salmeterol 100-50mcg Diskus INH SCH ×2 (10:02→19:57)
[2017-04-07 10:58] LABS: NEUTROPHIL 95 % (50-75); TOTAL CELLS COUNTED 100
--- NOTE | 2017-04-07 12:52 | CP.PCM.PN ---
Subjective - Date & Time of Evaluation Date of Evaluation: 04/07/17 Time of Evaluation: 09:45 - Subjective Subjective: patient seen and examined Clinically much improved Less short of breath Less cough Afebrile Developed reaction to azithromycin Continue steroids and nebulizer treatment Objective - Vital Signs/Intake and Output Vital Signs (last 24 hours): Temp Pulse Resp BP Pulse Ox 97.9 F 72 18 157/90 H 98 04/07/17 08:04 04/07/17 08:04 04/07/17 08:04 04/07/17 08:04 04/07/17 08:04 Intake and Output: 04/07/17 04/07/17 06:59 18:59 Intake Total 650 Balance 650 - Medications Medications: Current Medications Albuterol/Ipratropium (Duoneb 3 Mg/0.5 Mg (3 Ml) Ud) 3 ml INH RQ6 [facility] Last Admin: 04/07/17 10:01 Dose: 3 ml Heparin Sodium (Porcine) (Heparin) 5,000 units SC Q8 [facility] Last Admin: 04/07/17 05:44 Dose: 5,000 units Hydrochlorothiazide (Microzide) 12.5 mg PO DAILY [facility] Last Admin: 04/07/17 09:19 Dose: 12.5 mg Losartan Potassium (Cozaar) 50 mg PO DAILY [facility] Last Admin: 04/07/17 09:19 Dose: 50 mg Methylprednisolone (Solu-Medrol) 40 mg IV Q8 [facility] Last Admin: 04/07/17 05:44 Dose: 40 mg Pantoprazole Sodium (Protonix Ec Tab) 40 mg PO DAILY [facility] Last Admin: 04/07/17 09:18 Dose: 40 mg Rosuvastatin Calcium (Crestor) 10 mg PO HS [facility] Last Admin: 04/06/17 21:38 Dose: 10 mg Fluticasone/Salmeterol (Advair Diskus 100/50) 1 puff INH RQ12 [facility] Last Admin: 04/07/17 10:02 Dose: Not Given - Labs Labs: 04/07/17 08:01 04/07/17 08:01 Assessment and Plan (1) Asthma exacerbation Status: Acute (2) GERD (gastroesophageal reflux disease) Status: Chronic
--- NOTE | 2017-04-07 15:59 | CP.PCM.PN ---
Subjective - Date & Time of Evaluation Date of Evaluation: 04/07/17 Time of Evaluation: 08:20 - Subjective Subjective: clinically same Objective - Vital Signs/Intake and Output Vital Signs (last 24 hours): Temp Pulse Resp BP Pulse Ox 98 F 83 20 153/83 H 94 L 04/07/17 13:12 04/07/17 13:12 04/07/17 13:12 04/07/17 13:12 04/07/17 13:12 Intake and Output: 04/07/17 04/07/17 06:59 18:59 Intake Total 650 480 Balance 650 480 - Medications Medications: Current Medications Albuterol/Ipratropium (Duoneb 3 Mg/0.5 Mg (3 Ml) Ud) 3 ml INH RQ6 [facility] Last Admin: 04/07/17 13:57 Dose: 3 ml Heparin Sodium (Porcine) (Heparin) 5,000 units SC Q8 [facility] Last Admin: 04/07/17 13:07 Dose: 5,000 units Hydrochlorothiazide (Microzide) 12.5 mg PO DAILY [facility] Last Admin: 04/07/17 09:19 Dose: 12.5 mg Losartan Potassium (Cozaar) 50 mg PO DAILY [facility] Last Admin: 04/07/17 09:19 Dose: 50 mg Methylprednisolone (Solu-Medrol) 40 mg IV Q8 [facility] Last Admin: 04/07/17 13:07 Dose: 40 mg Pantoprazole Sodium (Protonix Ec Tab) 40 mg PO DAILY [facility] Last Admin: 04/07/17 09:18 Dose: 40 mg Rosuvastatin Calcium (Crestor) 10 mg PO HS [facility] Last Admin: 04/06/17 21:38 Dose: 10 mg Fluticasone/Salmeterol (Advair Diskus 100/50) 1 puff INH RQ12 [facility] Last Admin: 04/07/17 10:02 Dose: Not Given - Labs Labs: 04/07/17 08:01 04/07/17 08:01 - Constitutional Appears: Well - Head Exam Head Exam: ATRAUMATIC, NORMAL INSPECTION, NORMOCEPHALIC - Eye Exam Eye Exam: EOMI, Normal appearance, PERRL Pupil Exam: NORMAL ACCOMODATION, PERRL - ENT Exam ENT Exam: Mucous Membranes Moist, Normal Exam - Neck Exam Neck Exam: Full ROM, Normal Inspection. absent: Lymphadenopathy - Respiratory Exam Respiratory Exam: Decreased Breath Sounds - Cardiovascular Exam Cardiovascular Exam: REGULAR RHYTHM, +S1, +S2 - GI/Abdominal Exam GI & Abdominal Exam: Soft, Diminished Bowel Sounds - Rectal Exam Rectal Exam: Deferred
[2017-04-08] MEDS: Albuterol-Ipratrop 3 mg / 0.5 (3 ml) UD INH SCH ×4 (01:34→20:38)
[2017-04-08] MEDS: MethylPREDNISolone 40 mg Vial IV SCH ×3 (05:56→21:13)
[2017-04-08] MEDS: Fluticasone-Salmeterol 100-50mcg Diskus INH SCH ×2 (07:35→20:38)
[2017-04-08 07:43] LABS: HEMATOCRIT 38.2 % (34.0-47.0); LYMPH # 0.8 K/uL (1.0-4.3); MEAN CELL VOLUME 96.3 fL (81.0-99.0); MEAN CORPUSCULAR HEMOGLOBIN 31.9 pg (27.0-31.0); MEAN CORPUSCULAR HGB CONC 33.2 g/dL (33.0-37.0); MEAN PLATELET VOLUME 9.2 fL (7.2-11.7); MONO # 0.4 K/uL (0.0-0.8); MONO % 3.1 % (0.0-10.0); NRBC % 0.1 % (0.0-2.0); PLATELET COUNT 253 K/uL (130-400); RED CELL DISTRIBUTION WIDTH 14.3 % (11.5-14.5); WHITE BLOOD COUNT 13.4 K/uL (4.8-10.8)
[2017-04-08 08:03] LABS: ALB/GLOB RATIO 1.6 (1.0-2.1); BILIRUBIN,TOTAL 0.6 mg/dL (0.2-1.3); CALCIUM 8.8 mg/dl (8.6-10.4); MAGNESIUM 1.8 mg/dL (1.6-2.3); PHOSPHOROUS 4.2 mg/dL (2.5-4.5); POTASSIUM 3.6 mmol/L (3.6-5.2)
[2017-04-08 09:16] LABS: NEUTROPHIL 91 % (50-75); TOTAL CELLS COUNTED 100
[2017-04-08 09:21] LABS: LARGE PLATELETS PRESENT
[2017-04-08] MEDS: Pantoprazole 40 mg EC Tab PO SCH (10:30)
[2017-04-08] MEDS ORDERED: Sodium Chloride Nasal 0.65% Soln (30ml) NAS PRN (12:33)
--- NOTE | 2017-04-08 12:34 | CP.PCM.PN ---
Subjective - Date & Time of Evaluation Date of Evaluation: 04/08/17 Time of Evaluation: 08:40 - Subjective Subjective: clinically same Objective - Vital Signs/Intake and Output Vital Signs (last 24 hours): Temp Pulse Resp BP Pulse Ox 97.8 F 79 96 H 138/80 96 04/08/17 08:00 04/08/17 08:00 04/08/17 08:00 04/08/17 08:00 04/08/17 08:00 - Medications Medications: Current Medications Albuterol/Ipratropium (Duoneb 3 Mg/0.5 Mg (3 Ml) Ud) 3 ml INH RQ6 [facility] Last Admin: 04/08/17 07:36 Dose: 3 ml Hydrochlorothiazide (Microzide) 12.5 mg PO DAILY [facility] Last Admin: 04/08/17 10:30 Dose: 12.5 mg Losartan Potassium (Cozaar) 50 mg PO DAILY [facility] Last Admin: 04/08/17 10:30 Dose: 50 mg Methylprednisolone (Solu-Medrol) 40 mg IV Q8 [facility] Last Admin: 04/08/17 05:56 Dose: 40 mg Pantoprazole Sodium (Protonix Ec Tab) 40 mg PO DAILY [facility] Last Admin: 04/08/17 10:30 Dose: 40 mg Rosuvastatin Calcium (Crestor) 10 mg PO HS [facility] Last Admin: 04/07/17 21:15 Dose: 10 mg Fluticasone/Salmeterol (Advair Diskus 100/50) 1 puff INH RQ12 [facility] Last Admin: 04/08/17 07:35 Dose: 1 puff - Labs Labs: 04/08/17 07:29 04/08/17 07:29
[2017-04-08 15:43] VITALS: RESP 20
--- NOTE | 2017-04-08 15:55 | CP.PCM.PN ---
Subjective - Date & Time of Evaluation Date of Evaluation: 04/08/17 Time of Evaluation: 10:00 - Subjective Subjective: Patient seen and examined Breathing much improved Still has dry cough Afebrile No chest pain Objective - Vital Signs/Intake and Output Vital Signs (last 24 hours): Temp Pulse Resp BP Pulse Ox 98.1 F 86 20 146/71 94 L 04/08/17 15:43 04/08/17 15:43 04/08/17 15:43 04/08/17 15:43 04/08/17 15:43 - Medications Medications: Current Medications Albuterol/Ipratropium (Duoneb 3 Mg/0.5 Mg (3 Ml) Ud) 3 ml INH RQ6 [facility] Last Admin: 04/08/17 14:07 Dose: 3 ml Hydrochlorothiazide (Microzide) 12.5 mg PO DAILY [facility] Last Admin: 04/08/17 10:30 Dose: 12.5 mg Losartan Potassium (Cozaar) 50 mg PO DAILY [facility] Last Admin: 04/08/17 10:30 Dose: 50 mg Methylprednisolone (Solu-Medrol) 40 mg IV Q8 [facility] Last Admin: 04/08/17 15:20 Dose: 40 mg Pantoprazole Sodium (Protonix Ec Tab) 40 mg PO DAILY [facility] Last Admin: 04/08/17 10:30 Dose: 40 mg Rosuvastatin Calcium (Crestor) 10 mg PO HS [facility] Last Admin: 04/07/17 21:15 Dose: 10 mg Fluticasone/Salmeterol (Advair Diskus 100/50) 1 puff INH RQ12 [facility] Last Admin: 04/08/17 07:35 Dose: 1 puff Sodium Chloride ([place] Baby Saline 30 Ml) 1 ml THOM Q6 PRN PRN Reason: Dry nasal passages - Labs Labs: 04/08/17 07:29 04/08/17 07:29 - Head Exam Head Exam: ATRAUMATIC, NORMOCEPHALIC - Eye Exam Eye Exam: Normal appearance - ENT Exam ENT Exam: Mucous Membranes Moist - Respiratory Exam Respiratory Exam: Clear to Ausculation Bilateral - Cardiovascular Exam Cardiovascular Exam: REGULAR RHYTHM - GI/Abdominal Exam GI & Abdominal Exam: Soft, Normal Bowel Sounds Assessment and Plan (1) Asthma exacerbation Assessment & Plan: Clinically much improved By mouth prednisone Nebulizer treatment Status: Acute (2) GERD (gastroesophageal reflux disease) Status: Chronic
[2017-04-09 01:30] VITALS: O2SAT 95
[2017-04-09] MEDS: Albuterol-Ipratrop 3 mg / 0.5 (3 ml) UD INH SCH ×2 (01:36→07:42)
[2017-04-09] MEDS: MethylPREDNISolone 40 mg Vial IV SCH ×2 (06:00→13:46)
[2017-04-09 07:16] LABS: BASO % 0.2 % (0.0-2.0); LYMPH # 0.8 K/uL (1.0-4.3); LYMPH % 6.7 % (20.0-40.0); MEAN CELL VOLUME 96.1 fL (81.0-99.0); MEAN CORPUSCULAR HEMOGLOBIN 32.2 pg (27.0-31.0); MEAN CORPUSCULAR HGB CONC 33.5 g/dL (33.0-37.0); MEAN PLATELET VOLUME 9.7 fL (7.2-11.7); MONO # 0.3 K/uL (0.0-0.8); MONO % 2.9 % (0.0-10.0); PLATELET COUNT 251 K/uL (130-400); RED CELL DISTRIBUTION WIDTH 14.3 % (11.5-14.5); WHITE BLOOD COUNT 12.1 K/uL (4.8-10.8)
[2017-04-09 07:31] LABS: ALB/GLOB RATIO 1.8 (1.0-2.1); BILIRUBIN,TOTAL 0.7 mg/dL (0.2-1.3); CALCIUM 8.9 mg/dl (8.6-10.4); MAGNESIUM 1.9 mg/dL (1.6-2.3); PHOSPHOROUS 4.1 mg/dL (2.5-4.5); POTASSIUM 3.7 mmol/L (3.6-5.2); TOTAL PROTEIN 5.7 g/dL (6.3-8.3)
[2017-04-09] MEDS: Fluticasone-Salmeterol 100-50mcg Diskus INH SCH (07:42)
[2017-04-09 07:53] VITALS: BP 142/92; PULSE 73; TEMP 97.6
[2017-04-09 08:31] LABS: NEUTROPHIL 87 % (50-75); TOTAL CELLS COUNTED 100
[2017-04-09] MEDS: Pantoprazole 40 mg EC Tab PO SCH (09:31)
--- NOTE | 2017-04-09 12:05 | CP.PCM.DIS ---
Provider - Provider Date of Admission: 04/04/17 13:42 Attending physician: Marvin Goetz Jr, MD Time Spent in preparation of Discharge (in minutes): 40 Hospital Course - Lab Results Lab Results: Most Recent Lab Values WBC 12.1 K/uL (4.8-10.8) H 04/09/17 06:43 RBC 4.05 Mil/uL (3.80-5.20) 04/09/17 06:43 Hgb 13.1 g/dL (11.0-16.0) 04/09/17 06:43 Hct 39.0 % (34.0-47.0) 04/09/17 06:43 MCV 96.1 fL (81.0-99.0) 04/09/17 06:43 MCH 32.2 pg (27.0-31.0) H 04/09/17 06:43 MCHC 33.5 g/dL (33.0-37.0) 04/09/17 06:43 RDW 14.3 % (11.5-14.5) 04/09/17 06:43 Plt Count 251 K/uL (130-400) 04/09/17 06:43 MPV 9.7 fL (7.2-11.7) 04/09/17 06:43 Neut % (Auto) 90.2 % (50.0-75.0) H 04/09/17 06:43 Lymph % (Auto) 6.7 % (20.0-40.0) L 04/09/17 06:43 Becker % (Auto) 2.9 % (0.0-10.0) 04/09/17 06:43 Eos % (Auto) 0.0 % (0.0-4.0) 04/09/17 06:43 Baso % (Auto) 0.2 % (0.0-2.0) 04/09/17 06:43 Neut # 10.9 K/uL (1.8-7.0) H 04/09/17 06:43 Lymph # 0.8 K/uL (1.0-4.3) L 04/09/17 06:43 Becker # 0.3 K/uL (0.0-0.8) 04/09/17 06:43 Eos # 0.0 K/uL (0.0-0.7) 04/09/17 06:43 Baso # 0.0 K/uL (0.0-0.2) 04/09/17 06:43 Neutrophils % (Manual) 87 % (50-75) H 04/09/17 06:43 Band Neutrophils % 1 % (0-2) 04/09/17 06:43 Lymphocytes % (Manual) 7 % (20-40) L 04/09/17 06:43 Monocytes % (Manual) 5 % (0-10) 04/09/17 06:43 Platelet Estimate Normal (NORMAL) 04/09/17 06:43 Large Platelets Present 04/08/17 07:29 RBC Morphology Normal 04/09/17 06:43 Polychromasia Slight 04/08/17 07:29 Poikilocytosis (manual Slight 04/08/17 07:29 Anisocytosis (manual) Slight 04/08/17 07:29 Ovalocytes Slight 04/08/17 07:29 Sodium 133 mmol/L (132-148) 04/09/17 06:43 Potassium 3.7 mmol/L (3.6-5.2) 04/09/17 06:43 Chloride 98 mmol/L (98-107) 04/09/17 06:43 Carbon Dioxide 22 mmol/L (22-30) 04/09/17 06:43 Anion Gap 17 (10-20) 04/09/17 06:43 BUN 42 mg/dL (7-17) H 04/09/17 06:43 Creatinine 1.2 mg/dL (0.7-1.2) 04/09/17 06:43 Est GFR ( Amer) 52 04/09/17 06:43 Est GFR (Non-Af Amer) 43 04/09/17 06:43 Random Glucose 191 mg/dL (65-105) H 04/09/17 06:43 Calcium 8.9 mg/dl (8.6-10.4) 04/09/17 06:43 Phosphorus 4.1 mg/dL (2.5-4.5) 04/09/17 06:43 Magnesium 1.9 mg/dL (1.6-2.3) 04/09/17 06:43 Total Bilirubin 0.7 mg/dL (0.2-1.3) 04/09/17 06:43 AST 15 U/L (14-36) 04/09/17 06:43 ALT 31 U/L (9-52) 04/09/17 06:43 Alkaline Phosphatase 60 U/L (38-126) 04/09/17 06:43 CK-MB (Mass) 0.38 ng/mL (0.0-3.38) 04/04/17 11:11 Troponin I < 0.0120 ng/mL (0.00-0.120) 04/04/17 11:11 NT-Pro-B Natriuret Pep 409 pg/mL (0-900) 04/04/17 11:11 Total Protein 5.7 g/dL (6.3-8.3) L 04/09/17 06:43 Albumin 3.7 g/dL (3.5-5.0) 04/09/17 06:43 Globulin 2.1 gm/dL (2.2-3.9) L 04/09/17 06:43 Albumin/Globulin Ratio 1.8 (1.0-2.1) 04/09/17 06:43 Urine Color Yellow (YELLOW) 04/04/17 13:30 Urine Clarity Clear (Clear) 04/04/17 13:30 Urine pH 6.0 (5.0-8.0) 04/04/17 13:30 Ur Specific Midnight 1.014 (1.003-1.030) 04/04/17 13:30 Urine Protein Negative mg/dL (NEGATIVE) 04/04/17 13:30 Urine Glucose (UA) Normal mg/dL (Normal) 04/04/17 13:30 Urine Ketones Negative mg/dL (NEGATIVE) 04/04/17 13:30 Urine Blood Negative (NEGATIVE) 04/04/17 13:30 Urine Nitrate Negative (NEGATIVE) 04/04/17 13:30 Urine Bilirubin Negative (NEGATIVE) 04/04/17 13:30 Urine Urobilinogen Normal mg/dL (0.2-1.0) 04/04/17 13:30 Ur Leukocyte Esterase Neg Jose Luis/uL (Negative) 04/04/17 13:30 Urine WBC (Auto) 2 /hpf (0-5) 04/04/17 13:30 Urine RBC (Auto) < 1 /hpf (0-3) 04/04/17 13:30 Ur Squamous Epith Cells 8 /hpf (0-5) H 04/04/17 13:30 - Hospital Course Hospital Course: HPI ( As per admission): 81 year old female with PMH of chronic asthma presented to the ED this morning complaining of shortness of breath and dyspnea, which has gradually worsened over the past two weeks. Patient awoke in the middle of the night unable to breathe, used an "inhalation machine" which alleviated her symptoms, and then fell back to sleep. However, she awoke again a few hours later unable to breathe , and this time, her "inhalation machine" did not help, and so the patient asked her son to bring her to the hospital. The patient has had prior hospitalizations associated with her chronic asthma and associated complications. When seen in the ED, she complained of continued SOB, dyspnea, productive cough, weakness, intermittent headache, intermittent sore throat, urinary frequency, easy bruising, and hand swelling. Patient denied fever, chills, vision and hearing changes, dizziness, chest pain, palpitations, nausea , vomiting, diarrhea, constipation, hematemesis, hematochezia, dysuria, hematuria, leg pain and swelling, weight change and recent illness. Hospital course: 81 year old female with PMH of chronic asthma was admitted with the consideration of asthma exacerbation. Paraprofessional Education Assistant, Dr. Valerio was consulted, who agreed with medical management by medicine team. Patient has an uneventful course of hospitalization. Patient was managed medically and started to improve significantly. Patient was discharged after being cleared by health care team with instructions to follow up with her forming machine adjuster and a prescription of medrol dose brian. Pertinent imaging: Chest x-ray (04/04/17): No acute cardiopulmonary disease appreciated. 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 No significant interval change compared to the prior examination(s ). This is a brief summary of the hospital course. For a complete course, please refer to medical records Discharge Exam - Head Exam Head Exam: ATRAUMATIC, NORMAL INSPECTION, NORMOCEPHALIC - Eye Exam Eye Exam: EOMI, Normal appearance - ENT Exam ENT Exam: Mucous Membranes Moist - Respiratory Exam Respiratory Exam: Wheezes (Mild expiratory wheezing ), NORMAL BREATHING PATTERN - Cardiovascular Exam Cardiovascular Exam: REGULAR RHYTHM, +S1, +S2 - GI/Abdominal Exam GI & Abdominal Exam: Normal Bowel Sounds, Soft. absent: Diminished Bowel Sounds , Distended, Tenderness - Extremities Exam Extremities exam: calf tenderness - Neurological Exam Neurological exam: Alert, Oriented x3 - Psychiatric Exam Psychiatric exam: Normal Affect, Normal Mood - Skin Skin Exam: Normal Color Discharge Plan - Discharge Medications Prescriptions: Methylprednisolone [Medrol Dose Pack (21 tabs)] 4 mg PO WM #21 mg - Follow Up Plan Condition: STABLE Disposition: HOME/ ROUTINE Instructions: Methylprednisolone (By mouth), Asthma (DC), Heart Healthy Diet ( DC) Additional Instructions: Please discharge patient as per Dr. Goetz Please continue your home medications as prescribed Please start the follow medication as prescribed: 1. Medrol dose pack (4mg PO with meals - 21 tablets): take as per instruction on the pack Please follow-up with your forming machine adjuster, Dr. Valerio outpatient Please follow-up with your primary care physician ipon discharge Please return to the ER with worsening symptoms such as worsening shortness of breath, chest pain, palpitations, fever, chills, cough. Referrals: Marvin Goetz Jr., MD [Medical Doctor] - 1 Week
== END 2017-04-09 14:23 | disposition home or self-care (01) | DRG 203 ==
LOC: C.ER 10:30 → C.9E 13:42 → C.5S 14:28
PROVIDERS: ADMIT Internal Medicine; ATTEND Internal Medicine
DX: J45.901 Unspecified asthma with (acute) exacerbation (principal); I10 Essential (primary) hypertension; E78.00 Pure hypercholesterolemia, unspecified; M19.90 Unspecified osteoarthritis, unspecified site; K21.9 Gastro-esophageal reflux disease without esophagitis; Z85.01 Personal history of malignant neoplasm of esophagus

== ENCOUNTER 2017-04-23 15:42 | Inpatient (IN) | payer OTHER ==
[2017-04-23 15:43] VITALS: BMI 35.9
--- NOTE | 2017-04-23 16:30 | C.PDOC ---
History Of Present Illness 81 year old female with PMH of chronic asthma (no recent ICU admission, no hx of intubation), HTN, HLD, GERD, OA, presented to the ED for evaluation of shortness of breath " my asthma is back again", which has gradually worsened over the past 3-4 days. Pt reports, developed cold sx for past week associated with nasal congestion, dry cough that triggered asthma exacerbation. Pt admits, " use my inhalation machine without much help". Otherwise, pt denies high fever , chills, headache, dizziness, vertigo, drooling, neck pain, palpitation, diaphoresis, CP, abd. pain, N/V, back pain, dysuria, hematuria, leg pain and swelling, weight change. At present time, pt appears mild SOB, FYI: Previous ED visits review, Pt was last seen in ED on 04/04/17 when was admitted due to status asthmaticus and discharged on 04/09/17. PMH: Asthma, Bronchitis, HTN, HLD, Acid Reflux, Arthritis, Pneumonia, Urinary Incontinence PSH: Esophagectomy, Hysterectomy Medications: Duoneb 3 ml q6, Breo Ellipta 100-25 Mcg daily, Valsartan-Hctz 80- 12.5 mg daily, Crestor 10 mg daily, Nexium 40 mg daily Allergies: Aspirin, Ciprofloxacin, Ciprofloxacin HCl, Nitrofuantoin, Nitrofuantoin Macrocrystalline, Penicillin, Sulfa Family History: Father from metastatic Prostate Cancer, mother from Tuberculosis Social History: Denies tobacco and drug use, drinks champagne and wine socially ; , lives with son Time Seen by Provider: 04/23/17 16:15 Chief Complaint (Nursing): Shortness Of Breath History Per: Patient History/Exam Limitations: no limitations Onset/Duration Of Symptoms: Gradual (Gradually worsening for 3-4 days) Past Medical History Reviewed: Historical Data, Nursing Documentation, Vital Signs Vital Signs: Last Vital Signs Temp 97.9 F 04/25/17 17:16 Pulse 96 H 04/25/17 17:16 Resp 20 04/25/17 17:16 BP 164/98 H 04/25/17 17:16 Pulse Ox 95 04/25/17 17:16 - Medical History PMH: Arthritis, Asthma, Bronchitis, HTN, Hypercholesterolemia, Pneumonia Family History: States: No Known Family Hx - Social History Hx Tobacco Use: No Hx Alcohol Use: No Hx Substance Use: No - Immunization History Hx Tetanus Toxoid Vaccination: No Hx Influenza Vaccination: No Hx Pneumococcal Vaccination: No Review Of Systems Except As Marked, All Systems Reviewed And Found Negative. Constitutional: Negative for: Fever, Chills, Weight loss Cardiovascular: Negative for: Chest Pain, Palpitations Respiratory: Positive for: Shortness of Breath Gastrointestinal: Negative for: Nausea, Vomiting, Abdominal Pain Genitourinary: Negative for: Dysuria, Hematuria Musculoskeletal: Negative for: Neck Pain, Back Pain, Leg Pain Neurological: Negative for: Headache, Dizziness Physical Exam - Physical Exam Appears: Well, Non-toxic, No Acute Distress Skin: Normal Color, Warm, Dry, No Rash Head: Normacephalic Eye(s): bilateral: PERRL Ear(s): Bilateral: Normal Nose: No Flaring, Discharge (B?L nasal congestion with scant clear rhinorrhea) Oral Mucosa: Moist Tongue: Normal Appearing Lips: Normal Appearing Throat: No Erythema, No Drooling Neck: Trachea Midline, Supple Cardiovascular: Rhythm Regular, No Murmur, No JVD, Other ((-) carotid bruits B/L ) Respiratory: No Decreased Breath Sounds, Accessory Muscle Use (abdominal), No Rales, No Rhonchi, No Stridor, Wheezing (expiratoru, bibasilar) Gastrointestinal/Abdominal: Soft, No Distention, No Guarding Back: No CVA Tenderness Extremity: Normal ROM, No Pedal Edema, No Deformity Neurological/Psych: Oriented x3, Normal Speech ED Course And Treatment - Laboratory Results Result Diagrams: 04/24/17 07:00 04/24/17 07:00 ECG: Interpreted By Me, Viewed By Me ECG Rhythm: Sinus Rhythm Interpretation Of ECG: Normal axis deviation. No acute ST/T wave changes. Rate From EC (BPM) O2 Sat by Pulse Oximetry: 99 (RA) Pulse Ox Interpretation: Normal - Other Rad CXR X-Ray: Viewed By Me, Read By Radiologist Interpretation: Accession No. : [id number]. Patient Name / ID : GENO LANDEROS / [id number]. Exam Date : 04/23/2017 16:36:30 ( Approved ). Study Comment : Sex / Age : F / [id number]. Creator : Lakisha Mcdonald MD. Dictator : Lakisha Mcdonald MD. Analyst Business Analysis : Slope Hoist Operator : Lakisha Mcdonald MD. Approver2 : Report Date : 04/23/2017 17:18:22. My Comment : . HISTORY: SOB, history of gastric pull up. COMPARISON: Chest x-ray performed 04/04/17. TECHNIQUE: Chest PA and lateral. FINDINGS: LUNGS: Bibasilar atelectasis. Please note that chest x-ray has limited sensitivity for the detection of pulmonary masses. PLEURA: No significant pleural effusion identified. No definite pneumothorax . CARDIOVASCULAR: Ectatic aorta. Borderline cardiomegaly. OSSEOUS STRUCTURES: Osseous demineralization. Degenerative changes. Mild kyphosis. VISUALIZED UPPER ABDOMEN: Unremarkable. OTHER FINDINGS: None. IMPRESSION: Bibasilar atelectasis. Ectatic aorta. Borderline cardiomegaly. Progress Note: On re-eval, pt reports no significant improvement in sx. Still c /o chest tightness. afebrile, hemodynamicaly stable. Non-toxic. [place] well in ED. PulsEOx 99% RA. neck: SUpple, (-) JVD, (-) carotid bruits B/L. Lungs: mild imkprovement in wheezing B/L, BS equal B/L. CVS: (+)S1S2, reg. Blood work review and appears without acute abnoramlities. Troponin I- normal results. CXR, EKG- appears normal without acute changes compare to previous results. Case discussed with med-on-call and admission arranged. Medical Decision Making Medical Decision Making: PLAN: * CXR * EKG * Troponin * ABG * CBC * CMP * BNP * Albuterol IH * Solumedrol IVP * Magnesium Sulfate IV * Sodium Chloride IV Disposition - Disposition Disposition: HOSPITALIZED Disposition Time: 18:51 Condition: STABLE - Clinical Impression Clinical Impression: Asthma exacerbation - PA / SIZE WORKER / Resident Statement MD/DO has reviewed & agrees with the documentation as recorded. - Scribe Statement The provider has reviewed the documentation as recorded by the Scribe Lucy Hale All medical record entries made by the Cullenibe were at my direction and personally dictated by me. I have reviewed the chart and agree that the record accurately reflects my personal performance of the history, physical exam, medical decision making, and the department course for this patient. I have also personally directed, reviewed, and agree with the discharge instructions and disposition.
[2017-04-23] MEDS ORDERED: Sodium Chloride 0.9% 1,000 ML IV ONE (16:31)
[2017-04-23] MEDS ORDERED: Albuterol-Ipratrop 3 mg / 0.5 (3 ml) UD IH STA (16:33)
[2017-04-23] MEDS ORDERED: Magnesium Sulfate 1 gm in D5W 1 GM/100 ML BAG IV ONE (16:33)
[2017-04-23] MEDS ORDERED: Magnesium Sulfate 1 gm in D5W 1 GM/100 ML BAG IVPB ONE (16:45)
[2017-04-23] MEDS ORDERED: Sodium Chloride 0.9% 1,000 ML ONE (16:46)
[2017-04-23] MEDS ORDERED: Albuterol-Ipratrop 3 mg / 0.5 (3 ml) UD ONE ×3 (16:53→17:42)
--- NOTE | 2017-04-23 17:19 | RAD ---
HISTORY: SOB, history of gastric pull up COMPARISON: Chest x-ray performed 04/04/17 TECHNIQUE: Chest PA and lateral FINDINGS: LUNGS: Bibasilar atelectasis. Please note that chest x-ray has limited sensitivity for the detection of pulmonary masses. PLEURA: No significant pleural effusion identified. No definite pneumothorax . CARDIOVASCULAR: Ectatic aorta. Borderline cardiomegaly. OSSEOUS STRUCTURES: Osseous demineralization. Degenerative changes. Mild kyphosis. VISUALIZED UPPER ABDOMEN: Unremarkable. OTHER FINDINGS: None. IMPRESSION: Bibasilar atelectasis. Ectatic aorta. Borderline cardiomegaly.
[2017-04-23 17:25] LABS: BASO # 0.1 K/uL (0.0-0.2); BASO % 0.9 % (0.0-2.0); EOS # 0.2 K/uL (0.0-0.7); EOS % 3.3 % (0.0-4.0); HEMATOCRIT 37.6 % (34.0-47.0); LYMPH # 1.4 K/uL (1.0-4.3); LYMPH % 23.3 % (20.0-40.0); MEAN CELL VOLUME 96.3 fL (81.0-99.0); MEAN CORPUSCULAR HGB CONC 33.3 g/dL (33.0-37.0); MEAN PLATELET VOLUME 8.3 fL (7.2-11.7); MONO # 0.8 K/uL (0.0-0.8); MONO % 13.3 % (0.0-10.0); RED CELL DISTRIBUTION WIDTH 14.2 % (11.5-14.5); WHITE BLOOD COUNT 6.1 K/uL (4.8-10.8)
[2017-04-23 17:26] LABS: ABG ALLEN TEST POS; DRAW SITE RBA
[2017-04-23 17:38] LABS: ALKALINE PHOSPHATASE 74 U/L (38-126); ALT/SGPT 42 U/L (9-52); AST/SGOT 19 U/L (14-36); BILIRUBIN,TOTAL 0.4 mg/dL (0.2-1.3); BLOOD UREA NITROGEN 17 mg/dL (7-17); CALCIUM 8.3 mg/dl (8.6-10.4); CARBON DIOXIDE 30 mmol/L (22-30); CHLORIDE 100 mmol/L (98-107); GFR AFRICAN-AMERICAN 48; GLUCOSE,RANDOM 104 mg/dL (65-105); POTASSIUM 3.9 mmol/L (3.6-5.2); SODIUM 136 mmol/L (132-148); TOTAL PROTEIN 7.5 g/dL (6.3-8.3)
--- NOTE | 2017-04-23 20:36 | CP.PCM.HP ---
History of Present Illness - History of Present Illness History of Present Illness: 81 years old woman with a recent history of upper respiratory tract congestion started having wheezing and shortness of breath patient uses nebulizer and inhaler at home without much improvement. The wheezing increases in intensity and severity associated with cough and expectoration. There is no definite fever or chills or urinary incontinence. Patient has a history of bronchial asthma hypertension and arthritis and urinary incontinence. Present on Admission - Present on Admission Any Indicators Present on Admission: No Review of Systems - Constitutional Constitutional: absent: As Per HPI, Anorexia, Chills, Daytime Sleepiness, Excessive Sweating, Fatigue, Fever, Frequent Falls, Headache, Increased Appetite , Lethargy, Malaise, Night Sweats, Snoring, Sleep Apnea, Weight Gain, Weight Loss, Weakness, Other - EENT Eyes: absent: As Per HPI, Blind Spots, Blurred Vision, Change in Vision, Decreased Night Vision, Diplopia, Discharge, Dry Eye, Exophthalmos, Floaters, Irritation, Itchy Eyes, Loss of Peripheral Vision, Pain, Photophobia, Requires Corrective Lenses, Sees Flashes, Spots in Vision, Tunnel Vision, Other Visual Disturbances, Loss of Vision, Other Nose/Mouth/Throat: Nasal Congestion, Nasal Discharge, Post Nasal Drip, Dry Mouth. absent: Neck Pain - Breasts Breasts: absent: As Per HPI, Change in Shape, Mass, Pain, Nipple Discharge, Nipple Inversion, Skin Changes, Swelling, Other - Cardiovascular Cardiovascular: absent: As Per HPI, Acrocyanosis, Chest Pain, Chest Pain at Rest , Chest Pain with Activity, Claudication, Diaphoresis, Dyspnea, Dyspnea on Exertion, Edema, Irregular Heart Rhythm, Pain Radiating to Arm/Neck/Jaw, Leg Edema, Leg Ulcers, Lightheadedness, Orthopnea, Palpitations, Paroxysmal Nocturnal Dyspnea, Pedal Edema, Radiating Pain, Rapid Heart Rate, Slow Heart Rate, Syncope, Other - Respiratory Respiratory: Cough, Dyspnea, Dyspnea on Exertion, Wheezing, Chest Congestion, Excessive Mucous Production. absent: Hemoptysis, Snoring, Pain on Inspiration - Gastrointestinal Gastrointestinal: Dyspepsia, Heartburn. absent: As Per HPI, Abdominal Pain, Belching, Bloating, Change in Bowel Habits, Change in Stool Character, Coffee Ground Emesis, Constipation, Cramping, Diarrhea, Dysphagia, Early Satiety, Excessive Flatus, Fecal Incontinence, Hematemesis, Hematochezia, Loose Stools, Melena, Nausea, Odynophagia, Temesmus, Vomiting, Other - Genitourinary Genitourinary: Urinary Incontinence, Urinary Frequency, Urinary Urgency - Musculoskeletal Musculoskeletal: Muscle Cramps, Myalgias. absent: As Per HPI, Abnormal Gait, Arthralgias, Atrophy, Back Pain, Deformity, Joint Swelling, Limited Range of Motion, Loss of Height, Muscle Weakness, Neck Pain, Numbness, Radiating Pain into Limb, Stiffness, Tingling, Other - Integumentary Integumentary: absent: As Per HPI, Acne, Alopecia, Bleeding Lesions, Change in Hair, Change in Nails, Change in Pigmentation, Changing Lesions, Dry Skin, Erythema, Furuncle, Hirsutism, Lesions, New Lesions, Non-Healing Lesions, Photosensitivity, Pruritus, Rash, Skin Pain, Skin Ulcer, Sores, Striae, Swelling , Unusual Bruising, Wounds, Jaundice, Other - Neurological Neurological: Tingling. absent: As Per HPI, Abnormal Gait, Abnormal Hearing, Abnormal Movements, Abnormal Speech, Behavioral Changes, Burning Sensations, Confusion, Convulsions, Disequilibrium, Dizziness, Numbness, Focal Weakness, Frequent Falls, Headaches, Lack of Coordination, Loss of Vision, Memory Loss, Paresthesias, Radicular Pain, Restless Legs, Sensory Deficit, Syncope, Tremor, Vertigo, Weakness, Other Visual Disturbances, Other - Psychiatric Psychiatric: absent: As Per HPI, Abnormal Sleep Pattern, Anhedonia, Anxiety, Auditory Hallucinations, Behavioral Changes, Change in Appetite, Change in Libido, Confusion, Depression, Difficulty Concentrating, Hallucinations, Homicidal Ideation, Hopelessness, Irritability, Memory Loss, Mood Swings, Panic Attacks, Paranoia, Suicidal Ideation, Visual Hallucinations, Tactile Hallucinations, Other - Hematologic/Lymphatic Hematologic: absent: As Per HPI, Easy Bleeding, Easy Bruising, Lymphadenopathy, Other Past Patient History - Infectious Disease Hx of Infectious Diseases: None - Past Medical History & Family History Past Medical History?: Yes - Past Social History Smoking Status: Never Smoked - CARDIAC Hx Hypercholesterolemia: Yes Hx Hypertension: Yes - PULMONARY Hx Asthma: Yes Hx Bronchitis: Yes Hx Pneumonia: Yes - NEUROLOGICAL Hx Neurological Disorder: No - HEENT Hx HEENT Problems: Yes Other/Comment: WEARS GLASSES - RENAL Hx Chronic Kidney Disease: No - ENDOCRINE/METABOLIC Hx Endocrine Disorders: No - HEMATOLOGICAL/ONCOLOGICAL Hx Blood Disorders: No - INTEGUMENTARY Hx Dermatological Problems: No - MUSCULOSKELETAL/RHEUMATOLOGICAL Hx Arthritis: Yes - GASTROINTESTINAL Hx Gastrointestinal Disorders: Yes Hx Gastroesophageal Reflux: Yes Other/Comment: hx of esophageal CA - GENITOURINARY/GYNECOLOGICAL Hx Genitourinary Disorders: Yes - PSYCHIATRIC Hx Substance Use: No - SURGICAL HISTORY Hx Surgeries: Yes Hx Breast Biopsy: Yes Hx Hysterectomy: Yes Hx Orthopedic Surgery: Yes (RTKR) Other/Comment: ESOPHAGEAL SX - ANESTHESIA Hx Anesthesia: Yes Hx Anesthesia Reactions: No Hx Malignant Hyperthermia: No Meds Allergies/Adverse Reactions: Allergies Allergy/AdvReac Type Severity Reaction Status Date / Time aspirin Allergy Severe RASH Verified 04/23/17 16:10 ciprofloxacin [From Cipro] Allergy Severe RASH Verified 04/23/17 16:10 ciprofloxacin HCl Allergy Severe RASH Verified 04/23/17 16:10 [From Cipro] nitrofurantoin Allergy Severe RASH Verified 04/23/17 16:10 [From Macrobid] nitrofurantoin Allergy Severe RASH Verified 04/23/17 16:10 macrocrystalline [From Macrobid] Penicillins Allergy Severe RASH Verified 04/23/17 16:10 Sulfa (Sulfonamide Allergy Severe RASH Verified 04/23/17 16:10 Antibiotics) azithromycin Allergy ITCHING Verified 04/23/17 16:10 Physical Exam - Constitutional Appears: Well - Head Exam Head Exam: ATRAUMATIC, NORMAL INSPECTION, NORMOCEPHALIC - Eye Exam Eye Exam: EOMI, Normal appearance, PERRL Pupil Exam: NORMAL ACCOMODATION, PERRL - ENT Exam ENT Exam: Mucous Membranes Moist, Normal Exam - Respiratory Exam Respiratory Exam: Decreased Breath Sounds, Prolonged Expiratory Phase, Wheezes - Cardiovascular Exam Cardiovascular Exam: Tachycardia, REGULAR RHYTHM, +S1, +S2 - GI/Abdominal Exam GI & Abdominal Exam: Normal Bowel Sounds, Soft. absent: Tenderness - Back Exam Back exam: NORMAL INSPECTION Results - Vital Signs Recent Vital Signs: Last Vital Signs Temp 98.5 F 04/23/17 19:21 Pulse 88 04/23/17 19:21 Resp 23 04/23/17 20:16 BP 159/86 H 04/23/17 19:21 Pulse Ox 97 04/23/17 20:16 - Labs Result Diagrams: 04/23/17 17:14 04/23/17 17:14 Labs: Laboratory Results - last 24 hr 04/23/17 04/23/17 04/23/17 17:14 17:14 17:14 WBC 6.1 RBC 3.90 Hgb 12.5 Hct 37.6 MCV 96.3 MCH 32.0 H MCHC 33.3 RDW 14.2 Plt Count 180 MPV 8.3 Neut % (Auto) 59.2 Lymph % (Auto) 23.3 [place] % (Auto) 13.3 H Eos % (Auto) 3.3 Baso % (Auto) 0.9 Neut # 3.6 Lymph # 1.4 [place] # 0.8 Eos # 0.2 Baso # 0.1 PT 10.9 INR 1.0 APTT 25 Puncture Site pCO2 pO2 HCO3 ABG pH ABG Total CO2 ABG O2 Saturation ABG Base Excess Issa Test ABG Potassium A-a O2 Difference Respiratory Index Glucose Lactate FiO2 Sodium 136 Potassium 3.9 Chloride 100 Carbon Dioxide 30 Anion Gap 10 BUN 17 Creatinine 1.3 H Est GFR ( Amer) 48 Est GFR (Non-Af Amer) 40 Random Glucose 104 Calcium 8.3 L Total Bilirubin 0.4 AST 19 ALT 42 Alkaline Phosphatase 74 Troponin I < 0.0120 NT-Pro-B Natriuret Pep 381 Total Protein 7.5 Albumin 3.8 Globulin 3.7 Albumin/Globulin Ratio 1.0 Arterial Blood Potassium 04/23/17 17:20 WBC RBC Hgb Hct MCV MCH MCHC RDW Plt Count MPV Neut % (Auto) Lymph % (Auto) [place] % (Auto) Eos % (Auto) Baso % (Auto) Neut # Lymph # [place] # Eos # Baso # PT INR APTT Puncture Site Rba pCO2 34 L pO2 64 L HCO3 25.4 ABG pH 7.46 H ABG Total CO2 25.2 ABG O2 Saturation 96.1 ABG Base Excess 0.8 Issa Test Pos ABG Potassium 3.3 L A-a O2 Difference 43.0 Respiratory Index 0.7 Glucose 103 Lactate 1.0 FiO2 21.0 Sodium 140.0 Potassium Chloride 109.0 H Carbon Dioxide Anion Gap BUN Creatinine Est GFR ( Amer) Est GFR (Non-Af Amer) Random Glucose Calcium Total Bilirubin AST ALT Alkaline Phosphatase Troponin I NT-Pro-B Natriuret Pep Total Protein Albumin Globulin Albumin/Globulin Ratio Arterial Blood Potassium 3.3 L Assessment & Plan (1) HTN (hypertension) Status: Chronic (2) Asthma exacerbation Status: Acute Comment: see orders (3) COPD exacerbation Status: Acute (4) GERD (gastroesophageal reflux disease) Status: Chronic (5) Hyperlipidemia Status: Chronic
[2017-04-23] MEDS: Promethazine DM 6.25 mg-15 mg/5 ml Syrup PO PRN (22:09)
[2017-04-24] MEDS: Albuterol-Ipratrop 3 mg / 0.5 (3 ml) UD INH SCH ×6 (00:50→21:22)
[2017-04-24 07:04] LABS: BASO % 0.1 % (0.0-2.0); HEMATOCRIT 36.4 % (34.0-47.0); LYMPH # 0.6 K/uL (1.0-4.3); LYMPH % 11.7 % (20.0-40.0); MEAN CELL VOLUME 96.3 fL (81.0-99.0); MEAN CORPUSCULAR HGB CONC 33.3 g/dL (33.0-37.0); MEAN PLATELET VOLUME 8.2 fL (7.2-11.7); MONO # 0.1 K/uL (0.0-0.8); MONO % 1.4 % (0.0-10.0); NRBC % 0.1 % (0.0-2.0); RED CELL DISTRIBUTION WIDTH 14.5 % (11.5-14.5)
[2017-04-24 07:51] LABS: ALB/GLOB RATIO 1.5 (1.0-2.1); BILIRUBIN,TOTAL 0.4 mg/dL (0.2-1.3); CALCIUM 8.1 mg/dl (8.6-10.4); POTASSIUM 4.1 mmol/L (3.6-5.2); TOTAL PROTEIN 6.2 g/dL (6.3-8.3)
[2017-04-24] MEDS: Pantoprazole 40 mg EC Tab PO SCH (10:03)
--- NOTE | 2017-04-24 13:15 | CP.PCM.PN ---
Subjective - Date & Time of Evaluation Date of Evaluation: 04/24/17 Time of Evaluation: 13:14 - Subjective Subjective: CHIEF COMPLAINTS TODAY : SOB/WHEEZING ROS. HEENT : N. Resp : No ,pleuritic CP ,or hemoptysis Cardio : No anginal CP, PND, orthopnea, palpitation GI : No abd.pain, n/v ,diarrhea or GI bleeding . 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 Musculoskel : No joint swelling , Derm : No rash Psych : Normal affect. Ext : No swelling ,calf pain PE. Pt. is alert awake in no distress. V.S As noted in the chart Head ,ear nose,throat and eyes : Normal. Neck : Supple with normal carotids. Lungs: WAI RONCHI Heart : S1 & S2 normal with S4. No murmur. Abd : Soft non tender with normal bowel sounds. Neuro : Moves all ext. with no localized deficit. Ext : No edema with intact pulses.Non tender calves Derm : No rashes or decubitus ulcer. LABS/RADIOLOGY: ASSESSMENT/PLAN : IV AB /STEROIDS/NEB Objective - Vital Signs/Intake and Output Vital Signs (last 24 hours): Temp Pulse Resp BP Pulse Ox 98.3 F 90 20 151/98 H 95 04/24/17 08:32 04/24/17 08:32 04/24/17 08:32 04/24/17 08:32 04/24/17 08:32 Intake and Output: 04/24/17 04/24/17 11:59 23:59 Intake Total 200 500 Balance 200 500 - Medications Medications: Current Medications Albuterol/Ipratropium (Duoneb 3 Mg/0.5 Mg (3 Ml) Ud) 3 ml INH RQ4 [facility] Last Admin: 04/24/17 11:05 Dose: 3 ml Heparin Sodium (Porcine) (Heparin) 5,000 units SC Q12 [facility] Last Admin: 04/24/17 12:02 Dose: 5,000 units Hydrochlorothiazide (Microzide) 12.5 mg PO DAILY [facility] Last Admin: 04/24/17 10:03 Dose: 12.5 mg Losartan Potassium (Cozaar) 50 mg PO DAILY [facility] Last Admin: 04/24/17 10:55 Dose: 50 mg Methylprednisolone (Solu-Medrol) 60 mg IV Q8H [facility] Last Admin: 04/24/17 08:37 Dose: 60 mg Pantoprazole Sodium (Protonix Ec Tab) 40 mg PO DAILY [facility] Last Admin: 04/24/17 10:03 Dose: 40 mg Promethazine HCl/Dextromethorphan (Phenergan Dm Syrup) 5 ml PO Q6H PRN PRN Reason: Cough Last Admin: 04/23/17 22:09 Dose: 5 ml Rosuvastatin Calcium (Crestor) 10 mg PO HS [facility] - Labs Labs: 04/24/17 07:00 04/24/17 07:00 PT 10.9 SECONDS (9.7-12.2) 04/23/17 17:14 INR 1.0 04/23/17 17:14 APTT 25 SECONDS (21-34) 04/23/17 17:14 Assessment and Plan (1) HTN (hypertension) Status: Chronic (2) Asthma exacerbation Status: Acute (3) COPD exacerbation Status: Acute (4) GERD (gastroesophageal reflux disease) Status: Chronic (5) Hyperlipidemia Status: Chronic
--- NOTE | 2017-04-24 17:06 | CP.PCM.CON ---
History of Present Illness - History of Present Illness History of Present Illness: Reason for consultation: Shortness of breath, Asthma 81 y/o F with a PMHx of asthma, HTN, hyperlipidemia, gastric cancer presents with shortness of breath. Patient reports she had a productive cough w/white phlegm that started on Sunday and SOB of that began Sunday evening. Patient tried her home asthma treatments but with no improvement. Patient has been hospitalized multiple times in the past for asthma exacerbations. Patient complaining of chest tightness and congestion but says her cough has improved. Patient denies any smoking history. Patient has a dog at home. Patient denies fevers, headache, chills, nausea, vomiting, diarrhea, constipation, and dysuria. PMHx: Asthma, Gastric cancer, HTN, hyperlipidemia, GERD, pre-diabetes PSHx: multiple surgeries for gastric cancer 20+ years ago, knee surgery SocialHx: denies smoking and illicit drug use. Says she has alcohol only on special occasions. FamHx: sister has asthma Past Patient History - Infectious Disease Hx of Infectious Diseases: None - Past Medical History & Family History Past Medical History?: Yes - Past Social History Smoking Status: Never Smoked - CARDIAC Hx Hypercholesterolemia: Yes Hx Hypertension: Yes - PULMONARY Hx Asthma: Yes Hx Bronchitis: Yes Hx Pneumonia: Yes - NEUROLOGICAL Hx Neurological Disorder: No - HEENT Hx HEENT Problems: Yes Other/Comment: WEARS GLASSES - RENAL Hx Chronic Kidney Disease: No - ENDOCRINE/METABOLIC Hx Endocrine Disorders: No - HEMATOLOGICAL/ONCOLOGICAL Hx Blood Disorders: No - INTEGUMENTARY Hx Dermatological Problems: No - MUSCULOSKELETAL/RHEUMATOLOGICAL Hx Arthritis: Yes - GASTROINTESTINAL Hx Gastrointestinal Disorders: Yes Hx Gastroesophageal Reflux: Yes Other/Comment: hx of esophageal CA - GENITOURINARY/GYNECOLOGICAL Hx Genitourinary Disorders: Yes - PSYCHIATRIC Hx Substance Use: No - SURGICAL HISTORY Hx Surgeries: Yes Hx Breast Biopsy: Yes Hx Hysterectomy: Yes Hx Orthopedic Surgery: Yes (RTKR) Other/Comment: ESOPHAGEAL SX - ANESTHESIA Hx Anesthesia: Yes Hx Anesthesia Reactions: No Hx Malignant Hyperthermia: No Meds Allergies/Adverse Reactions: Allergies Allergy/AdvReac Type Severity Reaction Status Date / Time aspirin Allergy Severe RASH Verified 04/23/17 16:10 ciprofloxacin [From Cipro] Allergy Severe RASH Verified 04/23/17 16:10 ciprofloxacin HCl Allergy Severe RASH Verified 04/23/17 16:10 [From Cipro] nitrofurantoin Allergy Severe RASH Verified 04/23/17 16:10 [From Macrobid] nitrofurantoin Allergy Severe RASH Verified 04/23/17 16:10 macrocrystalline [From Macrobid] Penicillins Allergy Severe RASH Verified 04/23/17 16:10 Sulfa (Sulfonamide Allergy Severe RASH Verified 04/23/17 16:10 Antibiotics) azithromycin Allergy ITCHING Verified 04/23/17 16:10 - Medications Medications: Current Medications Albuterol/Ipratropium (Duoneb 3 Mg/0.5 Mg (3 Ml) Ud) 3 ml INH RQ4 [facility] Last Admin: 04/24/17 16:12 Dose: 3 ml Heparin Sodium (Porcine) (Heparin) 5,000 units SC Q12 [facility] Last Admin: 04/24/17 12:02 Dose: 5,000 units Hydrochlorothiazide (Microzide) 12.5 mg PO DAILY [facility] Last Admin: 04/24/17 10:03 Dose: 12.5 mg Losartan Potassium (Cozaar) 50 mg PO DAILY [facility] Last Admin: 04/24/17 10:55 Dose: 50 mg Methylprednisolone (Solu-Medrol) 60 mg IV Q8H [facility] Last Admin: 04/24/17 08:37 Dose: 60 mg Pantoprazole Sodium (Protonix Ec Tab) 40 mg PO DAILY [facility] Last Admin: 04/24/17 10:03 Dose: 40 mg Promethazine HCl/Dextromethorphan (Phenergan Dm Syrup) 5 ml PO Q6H PRN PRN Reason: Cough Last Admin: 04/23/17 22:09 Dose: 5 ml Rosuvastatin Calcium (Crestor) 10 mg PO [facility] Results - Vital Signs Recent Vital Signs: Last Vital Signs Temp 98.1 F 04/24/17 15:00 Pulse 107 H 04/24/17 15:00 Resp 20 04/24/17 15:00 BP 168/82 H 04/24/17 15:00 Pulse Ox 95 04/24/17 15:00 - Labs Result Diagrams: 04/24/17 07:00 04/24/17 07:00 Labs: Laboratory Results - last 24 hr 04/23/17 04/23/17 04/23/17 17:14 17:14 17:14 WBC 6.1 RBC 3.90 Hgb 12.5 Hct 37.6 MCV 96.3 MCH 32.0 H MCHC 33.3 RDW 14.2 Plt Count 180 MPV 8.3 Neut % (Auto) 59.2 Lymph % (Auto) 23.3 Pierce % (Auto) 13.3 H Eos % (Auto) 3.3 Baso % (Auto) 0.9 Neut # 3.6 Lymph # 1.4 Pierce # 0.8 Eos # 0.2 Baso # 0.1 PT 10.9 INR 1.0 APTT 25 Puncture Site pCO2 pO2 HCO3 ABG pH ABG Total CO2 ABG O2 Saturation ABG Base Excess Issa Test ABG Potassium A-a O2 Difference Respiratory Index Glucose Lactate FiO2 Sodium 136 Potassium 3.9 Chloride 100 Carbon Dioxide 30 Anion Gap 10 BUN 17 Creatinine 1.3 H Est GFR ( Amer) 48 Est GFR (Non-Af Amer) 40 Random Glucose 104 Calcium 8.3 L Total Bilirubin 0.4 AST 19 ALT 42 Alkaline Phosphatase 74 Troponin I < 0.0120 NT-Pro-B Natriuret Pep 381 Total Protein 7.5 Albumin 3.8 Globulin 3.7 Albumin/Globulin Ratio 1.0 Arterial Blood Potassium 04/23/17 04/24/17 04/24/17 17:20 07:00 07:00 WBC 5.0 RBC 3.78 L Hgb 12.1 Hct 36.4 MCV 96.3 MCH 32.0 H MCHC 33.3 RDW 14.5 Plt Count 172 MPV 8.2 Neut % (Auto) 86.8 H Lymph % (Auto) 11.7 L Pierce % (Auto) 1.4 Eos % (Auto) 0.0 Baso % (Auto) 0.1 Neut # 4.4 Lymph # 0.6 L Pierce # 0.1 Eos # 0.0 Baso # 0.0 PT INR APTT Puncture Site Rba pCO2 34 L pO2 64 L HCO3 25.4 ABG pH 7.46 H ABG Total CO2 25.2 ABG O2 Saturation 96.1 ABG Base Excess 0.8 Issa Test Pos ABG Potassium 3.3 L A-a O2 Difference 43.0 Respiratory Index 0.7 Glucose 103 Lactate 1.0 FiO2 21.0 Sodium 140.0 137 Potassium 4.1 Chloride 109.0 H 102 Carbon Dioxide 23 Anion Gap 16 BUN 18 H Creatinine 1.1 Est GFR ( Amer) 58 Est GFR (Non-Af Amer) 48 Random Glucose 262 H Calcium 8.1 L Total Bilirubin 0.4 AST 21 ALT 32 Alkaline Phosphatase 74 Troponin I NT-Pro-B Natriuret Pep Total Protein 6.2 L Albumin 3.7 Globulin 2.4 Albumin/Globulin Ratio 1.5 Arterial Blood Potassium 3.3 L
--- NOTE | 2017-04-24 17:23 | CP.PCM.CON ---
History of Present Illness - History of Present Illness History of Present Illness: INFECTIOUS DISEASE CONSULT HPI:81-year-old female with past medical history off asthma, hypertension, hyperlipidemia, GERD, history of gastric cancer, osteoarthritis who presented to the ED for evaluation of shortness of breath, cough and cold symptoms for the past week associated with nasal congestion, dry cough that triggered exacerbation of her asthma. Patient states she tried using her inhalation machine but without much help. Patient denies any fever or chills but complains of chest tightness and congestion. Patient denies any headache, dizziness, neck pains, palpitations or diaphoresis.Patient denies any diarrhea or obstipation. Patient was recently discharged on 04/09/17 when she was admitted due to status asthmaticus. INFECTIOUS DISEASE CONSULTATION REQUESTED BY PMD FOR EXACERBATION OF HER ASTHMA/ BRONCHITIS. CHEST X-RAY ON ADMISSION SHOWS BIBASILAR ATELECTASIS, ECTATIC AORTA AND CARDIOMEGALY. PMH: Asthma, Bronchitis, HTN, HLD, Acid Reflux, Arthritis, Pneumonia, Urinary Incontinence PSH: Esophagectomy, Hysterectomy Medications: Duoneb 3 ml q6, Breo Ellipta 100-25 Mcg daily, Valsartan-Hctz 80- 12.5 mg daily, Crestor 10 mg daily, Nexium 40 mg daily Allergies: Aspirin, Ciprofloxacin, Nitrofuantoin, Macrobid, Penicillin, Sulfa, Zithromax Family History: Father from metastatic Prostate Cancer, mother from Tuberculosis Social History: Denies tobacco and drug use, drinks champagne and wine socially ; , lives with son PETS ; DOG. Review of Systems - Constitutional Constitutional: absent: Chills, Fever, Headache - EENT Eyes: absent: Change in Vision Nose/Mouth/Throat: absent: Mouth Lesions, Sore Throat - Cardiovascular Cardiovascular: Dyspnea. absent: Palpitations - Respiratory Respiratory: Cough, Dyspnea, Wheezing, Chest Congestion, Excessive Mucous Production - Gastrointestinal Gastrointestinal: absent: Abdominal Pain, Diarrhea - Genitourinary Genitourinary: absent: Dysuria, Hematuria - Musculoskeletal Musculoskeletal: absent: Arthralgias - Neurological Neurological: absent: Dizziness, Headaches - Hematologic/Lymphatic Hematologic: As Per HPI Past Patient History - Infectious Disease Hx of Infectious Diseases: None - Past Medical History & Family History Past Medical History?: Yes - Past Social History Smoking Status: Never Smoked - CARDIAC Hx Hypercholesterolemia: Yes Hx Hypertension: Yes - PULMONARY Hx Asthma: Yes Hx Bronchitis: Yes Hx Pneumonia: Yes - NEUROLOGICAL Hx Neurological Disorder: No - HEENT Hx HEENT Problems: Yes Other/Comment: WEARS GLASSES - RENAL Hx Chronic Kidney Disease: No - ENDOCRINE/METABOLIC Hx Endocrine Disorders: No - HEMATOLOGICAL/ONCOLOGICAL Hx Blood Disorders: No - INTEGUMENTARY Hx Dermatological Problems: No - MUSCULOSKELETAL/RHEUMATOLOGICAL Hx Arthritis: Yes - GASTROINTESTINAL Hx Gastrointestinal Disorders: Yes Hx Gastroesophageal Reflux: Yes Other/Comment: hx of esophageal CA - GENITOURINARY/GYNECOLOGICAL Hx Genitourinary Disorders: Yes - PSYCHIATRIC Hx Substance Use: No - SURGICAL HISTORY Hx Surgeries: Yes Hx Breast Biopsy: Yes Hx Hysterectomy: Yes Hx Orthopedic Surgery: Yes (RTKR) Other/Comment: ESOPHAGEAL SX - ANESTHESIA Hx Anesthesia: Yes Hx Anesthesia Reactions: No Hx Malignant Hyperthermia: No Meds Allergies/Adverse Reactions: Allergies Allergy/AdvReac Type Severity Reaction Status Date / Time aspirin Allergy Severe RASH Verified 04/23/17 16:10 ciprofloxacin [From Cipro] Allergy Severe RASH Verified 04/23/17 16:10 ciprofloxacin HCl Allergy Severe RASH Verified 04/23/17 16:10 [From Cipro] nitrofurantoin Allergy Severe RASH Verified 04/23/17 16:10 [From Macrobid] nitrofurantoin Allergy Severe RASH Verified 04/23/17 16:10 macrocrystalline [From Macrobid] Penicillins Allergy Severe RASH Verified 04/23/17 16:10 Sulfa (Sulfonamide Allergy Severe RASH Verified 04/23/17 16:10 Antibiotics) azithromycin Allergy ITCHING Verified 04/23/17 16:10 - Medications Medications: Current Medications Albuterol/Ipratropium (Duoneb 3 Mg/0.5 Mg (3 Ml) Ud) 3 ml INH RQ4 [facility] Last Admin: 04/24/17 16:12 Dose: 3 ml Heparin Sodium (Porcine) (Heparin) 5,000 units SC Q12 [facility] Last Admin: 04/24/17 12:02 Dose: 5,000 units Hydrochlorothiazide (Microzide) 12.5 mg PO DAILY [facility] Last Admin: 04/24/17 10:03 Dose: 12.5 mg Losartan Potassium (Cozaar) 50 mg PO DAILY [facility] Last Admin: 04/24/17 10:55 Dose: 50 mg Methylprednisolone (Solu-Medrol) 60 mg IV Q8H [facility] Last Admin: 04/24/17 17:13 Dose: 60 mg Pantoprazole Sodium (Protonix Ec Tab) 40 mg PO DAILY [facility] Last Admin: 04/24/17 10:03 Dose: 40 mg Promethazine HCl/Dextromethorphan (Phenergan Dm Syrup) 5 ml PO Q6H PRN PRN Reason: Cough Last Admin: 04/23/17 22:09 Dose: 5 ml Rosuvastatin Calcium (Crestor) 10 mg PO HS [facility] Physical Exam - Constitutional Appears: No Acute Distress - Head Exam Head Exam: NORMAL INSPECTION - Eye Exam Eye Exam: EOMI, PERRL - ENT Exam ENT Exam: Normal Oropharynx - Neck Exam Neck exam: Positive for: Normal Inspection - Respiratory Exam Respiratory Exam: Prolonged Expiratory Phase, Wheezes - Cardiovascular Exam Cardiovascular Exam: REGULAR RHYTHM, +S1, +S2 - GI/Abdominal Exam GI & Abdominal Exam: Normal Bowel Sounds, Soft. absent: Organomegaly - Extremities Exam Extremities exam: Positive for: pedal pulses present. Negative for: calf tenderness, pedal edema - Neurological Exam Neurological exam: Alert, CN II-XII Intact, Oriented x3, Reflexes Normal - Psychiatric Exam Psychiatric exam: Normal Mood - Skin Skin Exam: Dry, Warm Results - Vital Signs Recent Vital Signs: Last Vital Signs Temp 98.1 F 04/24/17 15:00 Pulse 107 H 04/24/17 15:00 Resp 20 04/24/17 15:00 BP 168/82 H 04/24/17 15:00 Pulse Ox 95 04/24/17 15:00 - Labs Result Diagrams: 04/24/17 07:00 04/24/17 07:00 Labs: Laboratory Results - last 24 hr 04/23/17 04/23/17 04/23/17 17:14 17:14 17:14 WBC 6.1 RBC 3.90 Hgb 12.5 Hct 37.6 MCV 96.3 MCH 32.0 H MCHC 33.3 RDW 14.2 Plt Count 180 MPV 8.3 Neut % (Auto) 59.2 Lymph % (Auto) 23.3 [place] % (Auto) 13.3 H Eos % (Auto) 3.3 Baso % (Auto) 0.9 Neut # 3.6 Lymph # 1.4 [place] # 0.8 Eos # 0.2 Baso # 0.1 PT 10.9 INR 1.0 APTT 25 Puncture Site pCO2 pO2 HCO3 ABG pH ABG Total CO2 ABG O2 Saturation ABG Base Excess Issa Test ABG Potassium A-a O2 Difference Respiratory Index Glucose Lactate FiO2 Sodium 136 Potassium 3.9 Chloride 100 Carbon Dioxide 30 Anion Gap 10 BUN 17 Creatinine 1.3 H Est GFR ( Amer) 48 Est GFR (Non-Af Amer) 40 Random Glucose 104 Calcium 8.3 L Total Bilirubin 0.4 AST 19 ALT 42 Alkaline Phosphatase 74 Troponin I < 0.0120 NT-Pro-B Natriuret Pep 381 Total Protein 7.5 Albumin 3.8 Globulin 3.7 Albumin/Globulin Ratio 1.0 Arterial Blood Potassium 04/23/17 04/24/17 04/24/17 17:20 07:00 07:00 WBC 5.0 RBC 3.78 L Hgb 12.1 Hct 36.4 MCV 96.3 MCH 32.0 H MCHC 33.3 RDW 14.5 Plt Count 172 MPV 8.2 Neut % (Auto) 86.8 H Lymph % (Auto) 11.7 L [place] % (Auto) 1.4 Eos % (Auto) 0.0 Baso % (Auto) 0.1 Neut # 4.4 Lymph # 0.6 L [place] # 0.1 Eos # 0.0 Baso # 0.0 PT INR APTT Puncture Site Rba pCO2 34 L pO2 64 L HCO3 25.4 ABG pH 7.46 H ABG Total CO2 25.2 ABG O2 Saturation 96.1 ABG Base Excess 0.8 Issa Test Pos ABG Potassium 3.3 L A-a O2 Difference 43.0 Respiratory Index 0.7 Glucose 103 Lactate 1.0 FiO2 21.0 Sodium 140.0 137 Potassium 4.1 Chloride 109.0 H 102 Carbon Dioxide 23 Anion Gap 16 BUN 18 H Creatinine 1.1 Est GFR ( Amer) 58 Est GFR (Non-Af Amer) 48 Random Glucose 262 H Calcium 8.1 L Total Bilirubin 0.4 AST 21 ALT 32 Alkaline Phosphatase 74 Troponin I NT-Pro-B Natriuret Pep Total Protein 6.2 L Albumin 3.7 Globulin 2.4 Albumin/Globulin Ratio 1.5 Arterial Blood Potassium 3.3 L - Imaging and Cardiology Chest x-ray Status: Report reviewed by me (see report) Assessment & Plan (1) Asthma exacerbation Assessment and Plan: PANCULTURE ESR CRP INFLUENZA RAPID ANTIGEN TEST INFLUENZA a AND b ANTIBODY. ATYPICAL TITERS. MRSA SCREEN. PT ON IV sOLU-mEDROL 60 MG EVERY 8 HOURLY. Status: Acute (2) Bronchitis Assessment and Plan: SPUTUM gRAM STAIN AND CULTURE. START PO TAMIFLUE 75MG PO BID X 5DAYS.04/25/17. Status: Acute (3) HTN (hypertension) Status: Chronic (4) GERD (gastroesophageal reflux disease) Status: Chronic
[2017-04-24] MEDS: Nystatin 100,000 Units/ml Oral Susp 5 ml UD PO SCH ×2 (18:10→21:51)
--- NOTE | 2017-04-24 21:50 | CARD ---
APPROVED REPORT EKG Measurement Heart [id number] SC [id number] <Conclusion> Normal sinus rhythm Nonspecific T wave abnormality Abnormal ECG
[2017-04-24] MEDS: Promethazine DM 6.25 mg-15 mg/5 ml Syrup PO PRN (21:51)
[2017-04-25] MEDS: Albuterol-Ipratrop 3 mg / 0.5 (3 ml) UD INH SCH ×7 (00:18→19:40)
[2017-04-25] MEDS: Promethazine DM 6.25 mg-15 mg/5 ml Syrup PO PRN ×3 (04:47→19:28)
[2017-04-25] MEDS: Pantoprazole 40 mg EC Tab PO SCH (10:07)
[2017-04-25] MEDS: Nystatin 100,000 Units/ml Oral Susp 5 ml UD PO SCH ×4 (10:11→22:12)
--- NOTE | 2017-04-25 12:46 | CP.PCM.PN ---
Subjective - Date & Time of Evaluation Date of Evaluation: 04/25/17 Time of Evaluation: 12:46 - Subjective Subjective: Alert, awake, in moderate distress with cough and wheezing. Objective - Vital Signs/Intake and Output Vital Signs (last 24 hours): Temp Pulse Resp BP Pulse Ox 98.5 F 90 20 139/80 97 04/25/17 07:45 04/25/17 07:45 04/25/17 07:45 04/25/17 07:45 04/25/17 07:45 Intake and Output: 04/25/17 04/25/17 06:59 18:59 Intake Total 740 Balance 740 - Medications Medications: Current Medications Albuterol/Ipratropium (Duoneb 3 Mg/0.5 Mg (3 Ml) Ud) 3 ml INH RQ4 [facility] Last Admin: 04/25/17 11:15 Dose: 3 ml Heparin Sodium (Porcine) (Heparin) 5,000 units SC Q12 [facility] Last Admin: 04/25/17 10:09 Dose: 5,000 units Hydrochlorothiazide (Microzide) 12.5 mg PO DAILY [facility] Last Admin: 04/25/17 10:07 Dose: 12.5 mg Losartan Potassium (Cozaar) 50 mg PO DAILY [facility] Last Admin: 04/25/17 10:07 Dose: 50 mg Methylprednisolone (Solu-Medrol) 60 mg IV Q8H [facility] Last Admin: 04/25/17 08:00 Dose: 60 mg Nystatin (Nystatin Oral Susp) 5 ml PO QID [facility] Last Admin: 04/25/17 10:11 Dose: 5 ml Oseltamivir Phosphate (Tamiflu Cap) 75 mg PO BID [facility] Stop: 04/30/17 03:50 Last Admin: 04/25/17 10:07 Dose: 75 mg Pantoprazole Sodium (Protonix Ec Tab) 40 mg PO DAILY [facility] Last Admin: 04/25/17 10:07 Dose: 40 mg Promethazine HCl/Dextromethorphan (Phenergan Dm Syrup) 5 ml PO Q6H PRN PRN Reason: Cough Last Admin: 04/25/17 10:11 Dose: 5 ml Rosuvastatin Calcium (Crestor) 10 mg PO HS [facility] Last Admin: 04/24/17 21:51 Dose: 10 mg - Labs Labs: 04/24/17 07:00 04/24/17 07:00 PT 10.9 SECONDS (9.7-12.2) 04/23/17 17:14 INR 1.0 04/23/17 17:14 APTT 25 SECONDS (21-34) 04/23/17 17:14 Assessment and Plan - Assessment and Plan (Free Text) Assessment: Patient is seen and examined. Alert, awake, short of breath on exertion. Denies chest pains, has wheezing and cough still. D/W DR Martinez , changed status to full admission. Continue with nebulizer and iv solumedrol, monitor closely.
--- NOTE | 2017-04-25 13:23 | CP.PCM.PN ---
Subjective - Date & Time of Evaluation Date of Evaluation: 04/25/17 Time of Evaluation: 13:22 - Subjective Subjective: CHIEF COMPLAINTS TODAY : SOB/WHEEZING COUGH WITH WHITE EXP ROS. HEENT : N. Resp : No ,pleuritic CP ,or hemoptysis Cardio : No anginal CP, PND, orthopnea, palpitation GI : No abd.pain, n/v ,diarrhea or GI bleeding . 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 Musculoskel : No joint swelling , Derm : No rash Psych : Normal affect. Ext : No swelling ,calf pain PE. Pt. is alert awake in no distress. V.S As noted in the chart Head ,ear nose,throat and eyes : Normal. Neck : Supple with normal carotids. Lungs: WAI RONCHI Heart : S1 & S2 normal with S4. No murmur. Abd : Soft non tender with normal bowel sounds. Neuro : Moves all ext. with no localized deficit. Ext : No edema with intact pulses.Non tender calves Derm : No rashes or decubitus ulcer. LABS/RADIOLOGY: ASSESSMENT/PLAN : IV AB /STEROIDS/NEB ID EVAL FOR IV AB PT HAS MULTIPLE ALLERGIES Objective - Vital Signs/Intake and Output Vital Signs (last 24 hours): Temp Pulse Resp BP Pulse Ox 98.5 F 90 20 139/80 97 04/25/17 07:45 04/25/17 07:45 04/25/17 07:45 04/25/17 07:45 04/25/17 07:45 Intake and Output: 04/25/17 04/25/17 11:59 23:59 Intake Total 240 Balance 240 - Medications Medications: Current Medications Albuterol/Ipratropium (Duoneb 3 Mg/0.5 Mg (3 Ml) Ud) 3 ml INH RQ4 [facility] Last Admin: 04/25/17 11:15 Dose: 3 ml Heparin Sodium (Porcine) (Heparin) 5,000 units SC Q12 [facility] Last Admin: 04/25/17 10:09 Dose: 5,000 units Hydrochlorothiazide (Microzide) 12.5 mg PO DAILY [facility] Last Admin: 04/25/17 10:07 Dose: 12.5 mg Losartan Potassium (Cozaar) 50 mg PO DAILY [facility] Last Admin: 04/25/17 10:07 Dose: 50 mg Methylprednisolone (Solu-Medrol) 60 mg IV Q8H [facility] Last Admin: 04/25/17 08:00 Dose: 60 mg Nystatin (Nystatin Oral Susp) 5 ml PO QID [facility] Last Admin: 04/25/17 10:11 Dose: 5 ml Oseltamivir Phosphate (Tamiflu Cap) 75 mg PO BID [facility] Stop: 04/30/17 03:50 Last Admin: 04/25/17 10:07 Dose: 75 mg Pantoprazole Sodium (Protonix Ec Tab) 40 mg PO DAILY [facility] Last Admin: 04/25/17 10:07 Dose: 40 mg Promethazine HCl/Dextromethorphan (Phenergan Dm Syrup) 5 ml PO Q6H PRN PRN Reason: Cough Last Admin: 04/25/17 10:11 Dose: 5 ml Rosuvastatin Calcium (Crestor) 10 mg PO HS [facility] Last Admin: 04/24/17 21:51 Dose: 10 mg - Labs Labs: 04/24/17 07:00 04/24/17 07:00 PT 10.9 SECONDS (9.7-12.2) 04/23/17 17:14 INR 1.0 04/23/17 17:14 APTT 25 SECONDS (21-34) 04/23/17 17:14 Assessment and Plan (1) HTN (hypertension) Status: Chronic (2) Asthma exacerbation Status: Acute (3) COPD exacerbation Status: Acute (4) GERD (gastroesophageal reflux disease) Status: Chronic (5) Hyperlipidemia Status: Chronic
--- NOTE | 2017-04-25 23:20 | CP.PCM.PN ---
Subjective - Date & Time of Evaluation Date of Evaluation: 04/25/17 Time of Evaluation: 23:20 - Subjective Subjective: CHIEF COMPLAINTS TODAY : afebrile c/o dry cough SOB/WHEEZING ROS. HEENT : N. Resp : No ,pleuritic CP ,or hemoptysis Cardio : No anginal CP, PND, orthopnea, palpitation GI : No abd.pain, n/v ,diarrhea or GI bleeding . 21 DEALER : No headache, vertigo, focal deficit. Musculoskel : No joint swelling , Derm : No rash Psych : Normal affect. Ext : No swelling ,calf pain PE. Pt. is alert awake in no distress. V.S As noted in the chart Head ,ear nose,throat and eyes : Normal. Neck : Supple with normal carotids. Lungs: WAI RONCHI /EXPIRATORY WHEEZE. Heart : S1 & S2 normal with S4. No murmur. Abd : Soft non tender with normal bowel sounds. Neuro : Moves all ext. with no localized deficit. Ext : No edema with intact pulses.Non tender calves Derm : No rashes or decubitus ulcer. LABS/RADIOLOGY: wbc 5.0 CREATININE 1.1/bun 18 pRO-CALCITONIN 0.05 LOW ASSESSMENT/PLAN : EXACERBATION OF BRONCHIAL ASTHMA BRONCHIOLITIS? VIRAL /FLUE HYPERTENSION. GERD. PLAN CONTINUE NEBULIZER THERAPY. iv STEROIDS TAMIFLU 75 MG BY MOUTH TWICE A DAY. 04/25/17. PULMONARY TOILET. mrsa SCREEN WILL HOLD OFF iv ANTIBIOTICS AT PRESENT. PATIENT HAS MULTIPLE ALLERGIES Objective - Vital Signs/Intake and Output Vital Signs (last 24 hours): Temp Pulse Resp BP Pulse Ox 97.9 F 96 H 20 164/98 H 99 04/25/17 17:16 04/25/17 17:16 04/25/17 17:16 04/25/17 17:16 04/25/17 19:41 Intake and Output: 04/25/17 04/26/17 18:59 06:59 Intake Total 600 Balance 600 - Medications Medications: Current Medications Albuterol/Ipratropium (Duoneb 3 Mg/0.5 Mg (3 Ml) Ud) 3 ml INH RQ4 [facility] Last Admin: 04/25/17 19:40 Dose: 3 ml Heparin Sodium (Porcine) (Heparin) 5,000 units SC Q12 [facility] Last Admin: 04/25/17 22:12 Dose: 5,000 units Hydrochlorothiazide (Microzide) 12.5 mg PO DAILY [facility] Last Admin: 04/25/17 10:07 Dose: 12.5 mg Losartan Potassium (Cozaar) 50 mg PO DAILY [facility] Last Admin: 04/25/17 10:07 Dose: 50 mg Methylprednisolone (Solu-Medrol) 60 mg IV Q8H [facility] Last Admin: 04/25/17 17:20 Dose: 60 mg Nystatin (Nystatin Oral Susp) 5 ml PO QID [facility] Last Admin: 04/25/17 22:12 Dose: 5 ml Oseltamivir Phosphate (Tamiflu Cap) 75 mg PO BID [facility] Stop: 04/30/17 03:50 Last Admin: 04/25/17 17:57 Dose: 75 mg Pantoprazole Sodium (Protonix Ec Tab) 40 mg PO DAILY [facility] Last Admin: 04/25/17 10:07 Dose: 40 mg Promethazine HCl/Dextromethorphan (Phenergan Dm Syrup) 5 ml PO Q6H PRN PRN Reason: Cough Last Admin: 04/25/17 19:28 Dose: 5 ml Rosuvastatin Calcium (Crestor) 10 mg PO HS [facility] Last Admin: 04/25/17 22:12 Dose: 10 mg - Labs Labs: 04/24/17 07:00 04/24/17 07:00 PT 10.9 SECONDS (9.7-12.2) 04/23/17 17:14 INR 1.0 04/23/17 17:14 APTT 25 SECONDS (21-34) 04/23/17 17:14 Assessment and Plan (1) Asthma exacerbation Status: Acute (2) Bronchitis Status: Acute (3) HTN (hypertension) Status: Chronic (4) GERD (gastroesophageal reflux disease) Status: Chronic
[2017-04-26] MEDS: Albuterol-Ipratrop 3 mg / 0.5 (3 ml) UD INH SCH ×7 (00:48→23:50)
[2017-04-26 08:30] LABS: HEMATOCRIT 37.1 % (34.0-47.0); LYMPH # 0.7 K/uL (1.0-4.3); LYMPH % 5.1 % (20.0-40.0); MEAN CELL VOLUME 96.5 fL (81.0-99.0); MEAN CORPUSCULAR HEMOGLOBIN 32.1 pg (27.0-31.0); MEAN CORPUSCULAR HGB CONC 33.3 g/dL (33.0-37.0); MEAN PLATELET VOLUME 9.1 fL (7.2-11.7); MONO # 0.3 K/uL (0.0-0.8); MONO % 2.3 % (0.0-10.0); NRBC % 0.1 % (0.0-2.0); PLATELET COUNT 208 K/uL (130-400); RED CELL DISTRIBUTION WIDTH 14.4 % (11.5-14.5)
[2017-04-26 08:38] LABS: WHITE BLOOD COUNT 12.8 K/uL (4.8-10.8)
[2017-04-26 09:21] LABS: BILIRUBIN,TOTAL 0.4 mg/dL (0.2-1.3); CALCIUM 8.6 mg/dl (8.6-10.4); POTASSIUM 4.1 mmol/L (3.6-5.2); TOTAL PROTEIN 7.2 g/dL (6.3-8.3)
[2017-04-26] MEDS: Nystatin 100,000 Units/ml Oral Susp 5 ml UD PO SCH ×4 (09:54→21:50)
[2017-04-26] MEDS: Pantoprazole 40 mg EC Tab PO SCH (09:54)
[2017-04-26 10:38] LABS: NEUTROPHIL 94 % (50-75); TOTAL CELLS COUNTED 100
--- NOTE | 2017-04-26 13:31 | CP.PCM.PN ---
Subjective - Date & Time of Evaluation Date of Evaluation: 04/26/17 Time of Evaluation: 13:30 - Subjective Subjective: CHIEF COMPLAINTS TODAY : SOB/WHEEZING COUGH WITH WHITE EXP ROS. HEENT : N. Resp : No ,pleuritic CP ,or hemoptysis Cardio : No anginal CP, PND, orthopnea, palpitation GI : No abd.pain, n/v ,diarrhea or GI bleeding . 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 Musculoskel : No joint swelling , Derm : No rash Psych : Normal affect. Ext : No swelling ,calf pain PE. Pt. is alert awake in no distress. V.S As noted in the chart Head ,ear nose,throat and eyes : Normal. Neck : Supple with normal carotids. Lungs: WAI RONCHI Heart : S1 & S2 normal with S4. No murmur. Abd : Soft non tender with normal bowel sounds. Neuro : Moves all ext. with no localized deficit. Ext : No edema with intact pulses.Non tender calves Derm : No rashes or decubitus ulcer. LABS/RADIOLOGY: ASSESSMENT/PLAN : IV AB /STEROIDS/NEB ID EVAL FOR IV AB PT HAS MULTIPLE ALLERGIES PULM EVAL Objective - Vital Signs/Intake and Output Vital Signs (last 24 hours): Temp Pulse Resp BP Pulse Ox 98.7 F 90 20 132/77 97 04/26/17 08:09 04/26/17 08:09 04/26/17 08:09 04/26/17 08:09 04/26/17 08:09 Intake and Output: 04/26/17 04/26/17 11:59 23:59 Intake Total 150 Balance 150 - Medications Medications: Current Medications Acetylcysteine (Acetylcysteine 20%) 4 ml INH Q6H [facility] Albuterol/Ipratropium (Duoneb 3 Mg/0.5 Mg (3 Ml) Ud) 3 ml INH RQ4 [facility] Last Admin: 04/26/17 11:25 Dose: 3 ml Heparin Sodium (Porcine) (Heparin) 5,000 units SC Q12 [facility] Last Admin: 04/26/17 09:54 Dose: 5,000 units Hydrochlorothiazide (Microzide) 12.5 mg PO DAILY [facility] Last Admin: 04/26/17 09:54 Dose: 12.5 mg Losartan Potassium (Cozaar) 50 mg PO DAILY [facility] Last Admin: 04/26/17 09:54 Dose: 50 mg Methylprednisolone (Solu-Medrol) 60 mg IV Q8H [facility] Last Admin: 04/26/17 08:15 Dose: 60 mg Nystatin (Nystatin Oral Susp) 5 ml PO QID [facility] Last Admin: 04/26/17 09:54 Dose: 5 ml Oseltamivir Phosphate (Tamiflu Cap) 75 mg PO BID [facility] Stop: 04/30/17 03:50 Last Admin: 04/26/17 09:54 Dose: 75 mg Pantoprazole Sodium (Protonix Ec Tab) 40 mg PO DAILY [facility] Last Admin: 04/26/17 09:54 Dose: 40 mg Promethazine HCl/Dextromethorphan (Phenergan Dm Syrup) 5 ml PO Q6H PRN PRN Reason: Cough Last Admin: 04/25/17 19:28 Dose: 5 ml Rosuvastatin Calcium (Crestor) 10 mg PO HS [facility] Last Admin: 04/25/17 22:12 Dose: 10 mg - Labs Labs: 04/26/17 08:16 04/26/17 08:16 PT 10.9 SECONDS (9.7-12.2) 04/23/17 17:14 INR 1.0 04/23/17 17:14 APTT 25 SECONDS (21-34) 04/23/17 17:14 Assessment and Plan (1) HTN (hypertension) Status: Chronic (2) Asthma exacerbation Status: Acute (3) COPD exacerbation Status: Acute (4) GERD (gastroesophageal reflux disease) Status: Chronic (5) Hyperlipidemia Status: Chronic
--- NOTE | 2017-04-26 16:18 | RAD ---
HISTORY: pneumonia COMPARISON: Chest x-ray performed 04/23/17 TECHNIQUE: Chest, one view. FINDINGS: Examination limited by habitus. LUNGS: Mild bibasilar atelectasis. PLEURA: No significant pleural effusion identified. No definite pneumothorax . CARDIOVASCULAR: Stable borderline cardiomegaly. Ectatic aorta. OSSEOUS STRUCTURES: Degenerative changes. VISUALIZED UPPER ABDOMEN: Unremarkable. OTHER FINDINGS: None. IMPRESSION: Mild bibasilar atelectasis. Stable appearing borderline cardiomegaly. Ectatic aorta.
[2017-04-26] MEDS: Promethazine DM 6.25 mg-15 mg/5 ml Syrup PO PRN ×2 (16:47→23:10)
--- NOTE | 2017-04-26 18:28 | CP.PCM.PN ---
Subjective - Date & Time of Evaluation Date of Evaluation: 04/26/17 Time of Evaluation: 16:00 - Subjective Subjective: the patient seen and examined Still complaining of cough, shortness of breath, wheezing Denies fever chills, denies chest pain Objective - Vital Signs/Intake and Output Vital Signs (last 24 hours): Temp Pulse Resp BP Pulse Ox 97.8 F 74 20 159/98 H 97 04/26/17 15:00 04/26/17 15:00 04/26/17 15:00 04/26/17 15:00 04/26/17 15:00 Intake and Output: 04/26/17 04/26/17 06:59 18:59 Intake Total 750 Balance 750 - Medications Medications: Current Medications Acetylcysteine (Acetylcysteine 20%) 4 ml INH Q6H [facility] Albuterol/Ipratropium (Duoneb 3 Mg/0.5 Mg (3 Ml) Ud) 3 ml INH RQ4 [facility] Last Admin: 04/26/17 16:08 Dose: 3 ml Heparin Sodium (Porcine) (Heparin) 5,000 units SC Q12 [facility] Last Admin: 04/26/17 09:54 Dose: 5,000 units Hydrochlorothiazide (Microzide) 12.5 mg PO DAILY [facility] Last Admin: 04/26/17 09:54 Dose: 12.5 mg Losartan Potassium (Cozaar) 100 mg PO DAILY [facility] Methylprednisolone (Solu-Medrol) 60 mg IV Q8H [facility] Last Admin: 04/26/17 16:29 Dose: 60 mg Nystatin (Nystatin Oral Susp) 5 ml PO QID [facility] Last Admin: 04/26/17 17:21 Dose: 5 ml Oseltamivir Phosphate (Tamiflu Cap) 75 mg PO BID [facility] Stop: 04/30/17 03:50 Last Admin: 04/26/17 17:22 Dose: 75 mg Pantoprazole Sodium (Protonix Ec Tab) 40 mg PO DAILY [facility] Last Admin: 04/26/17 09:54 Dose: 40 mg Promethazine HCl/Dextromethorphan (Phenergan Dm Syrup) 5 ml PO Q6H PRN PRN Reason: Cough Last Admin: 04/26/17 16:47 Dose: 5 ml Rosuvastatin Calcium (Crestor) 10 mg PO HS [facility] Last Admin: 04/25/17 22:12 Dose: 10 mg - Labs Labs: 04/26/17 08:16 04/26/17 08:16 PT 10.9 SECONDS (9.7-12.2) 04/23/17 17:14 INR 1.0 04/23/17 17:14 APTT 25 SECONDS (21-34) 04/23/17 17:14 - Head Exam Head Exam: ATRAUMATIC, NORMOCEPHALIC - Eye Exam Eye Exam: Normal appearance - ENT Exam ENT Exam: Mucous Membranes Moist - Neck Exam Neck Exam: Normal Inspection - Respiratory Exam Respiratory Exam: Rhonchi, Wheezes - Cardiovascular Exam Cardiovascular Exam: REGULAR RHYTHM - GI/Abdominal Exam GI & Abdominal Exam: Soft, Normal Bowel Sounds - Extremities Exam Extremities Exam: Full ROM, Normal Inspection - Neurological Exam Neurological Exam: Alert, Oriented x3 Assessment and Plan (1) Asthma exacerbation Assessment & Plan: continue IV steroids nebulizer treatment Add budesonide on antibiotics as per infectious disease IV fluids mucolytic Status: Acute
[2017-04-26] MEDS: Acetylcysteine 20% Inhal Soln (4ml) INH SCH (19:52)
--- NOTE | 2017-04-26 23:19 | CP.PCM.PN ---
Subjective - Date & Time of Evaluation Date of Evaluation: 04/26/17 Time of Evaluation: 23:19 - Subjective Subjective: CHIEF COMPLAINTS TODAY : afebrile c/o dry cough STILL W SOB/WHEEZING ROS. HEENT : N. Resp : No ,pleuritic CP ,or hemoptysis Cardio : No anginal CP, PND, orthopnea, palpitation GI : No abd.pain, n/v ,diarrhea or GI bleeding . 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 Musculoskel : No joint swelling , Derm : No rash Psych : Normal affect. Ext : No swelling ,calf pain PE. Pt. is alert awake in no distress. V.S As noted in the chart Head ,ear nose,throat and eyes : Normal. Neck : Supple with normal carotids. Lungs: WAI RONCHI /EXPIRATORY WHEEZE. Heart : S1 & S2 normal with S4. No murmur. Abd : Soft non tender with normal bowel sounds. Neuro : Moves all ext. with no localized deficit. Ext : No edema with intact pulses.Non tender calves Derm : No rashes or decubitus ulcer. LABS/RADIOLOGY: wbc 5.0 CREATININE 1.1/bun 18 pRO-CALCITONIN 0.05 LOW ASSESSMENT/PLAN : EXACERBATION OF BRONCHIAL ASTHMA BRONCHIOLITIS? VIRAL /FLUE HYPERTENSION. GERD. PLAN START iv tYGACIL 100 MG LOADING DOSE, fOLLOWED BY 50 MG EVERY 12 HOURLY IF TOLERATED. pLEASE INFUSE THE FIRST DOSE over 90 MINUTES.04/26/17 pULMONARY CONSULT IN PROGRESS. CONTINUE NEBULIZER THERAPY. iv STEROIDS TAMIFLU 75 MG BY MOUTH TWICE A DAY X 5DAYS 04/25/17. PULMONARY TOILET. Objective - Vital Signs/Intake and Output Vital Signs (last 24 hours): Temp Pulse Resp BP Pulse Ox 97.8 F 74 20 159/98 H 97 04/26/17 15:00 04/26/17 15:00 04/26/17 15:00 04/26/17 15:00 04/26/17 15:00 Intake and Output: 04/26/17 04/27/17 18:59 06:59 Intake Total 350 Balance 350 - Medications Medications: Current Medications Acetylcysteine (Acetylcysteine 20%) 4 ml INH Q6H [facility] Last Admin: 04/26/17 19:52 Dose: Not Given Albuterol/Ipratropium (Duoneb 3 Mg/0.5 Mg (3 Ml) Ud) 3 ml INH RQ4 [facility] Last Admin: 04/26/17 19:52 Dose: 3 ml Alprazolam (Xanax) 0.25 mg PO BID [facility] Stop: 05/03/17 18:31 Last Admin: 04/26/17 18:54 Dose: 0.25 mg Budesonide (Pulmicort Respules) 0.5 mg INH RQ12 [facility] Heparin Sodium (Porcine) (Heparin) 5,000 units SC Q12 [facility] Last Admin: 04/26/17 21:50 Dose: 5,000 units Hydrochlorothiazide (Microzide) 12.5 mg PO DAILY [facility] Last Admin: 04/26/17 09:54 Dose: 12.5 mg Losartan Potassium (Cozaar) 100 mg PO DAILY [facility] Methylprednisolone (Solu-Medrol) 60 mg IV Q8H [facility] Last Admin: 04/26/17 16:29 Dose: 60 mg Nystatin (Nystatin Oral Susp) 5 ml PO QID [facility] Last Admin: 04/26/17 21:50 Dose: 5 ml Oseltamivir Phosphate (Tamiflu Cap) 75 mg PO BID [facility] Stop: 04/30/17 03:50 Last Admin: 04/26/17 17:22 Dose: 75 mg Pantoprazole Sodium (Protonix Ec Tab) 40 mg PO DAILY [facility] Last Admin: 04/26/17 09:54 Dose: 40 mg Promethazine HCl/Dextromethorphan (Phenergan Dm Syrup) 5 ml PO Q6H PRN PRN Reason: Cough Last Admin: 04/26/17 23:10 Dose: 5 ml Rosuvastatin Calcium (Crestor) 10 mg PO HS [facility] Last Admin: 04/26/17 21:50 Dose: 10 mg - Labs Labs: 04/26/17 08:16 04/26/17 08:16 PT 10.9 SECONDS (9.7-12.2) 04/23/17 17:14 INR 1.0 04/23/17 17:14 APTT 25 SECONDS (21-34) 04/23/17 17:14 Assessment and Plan (1) Asthma exacerbation Status: Acute (2) Bronchitis Status: Acute (3) HTN (hypertension) Status: Chronic (4) GERD (gastroesophageal reflux disease) Status: Chronic
[2017-04-26] MEDS ORDERED: DAPTOmycin 500 mg Inj (Cubicin) IV SCH (23:30)
[2017-04-26] MEDS ORDERED: DAPTOmycin 500 MG in Sodium Chloride 0.9% 100 ML IV SCH (23:30)
[2017-04-27] MEDS: Acetylcysteine 20% Inhal Soln (4ml) INH SCH ×3 (01:24→16:07)
[2017-04-27] MEDS: Albuterol-Ipratrop 3 mg / 0.5 (3 ml) UD INH SCH ×6 (04:26→23:36)
[2017-04-27] MEDS: Budesonide 0.5 mg/2 ml Inhal Susp UD INH SCH (07:23)
[2017-04-27 08:14] LABS: HEMATOCRIT 37.1 % (34.0-47.0); LYMPH # 0.8 K/uL (1.0-4.3); LYMPH % 6.5 % (20.0-40.0); MEAN CORPUSCULAR HEMOGLOBIN 32.2 pg (27.0-31.0); MEAN CORPUSCULAR HGB CONC 33.5 g/dL (33.0-37.0); MEAN PLATELET VOLUME 8.7 fL (7.2-11.7); MONO # 0.3 K/uL (0.0-0.8); MONO % 2.6 % (0.0-10.0); NRBC % 0.1 % (0.0-2.0); PLATELET COUNT 227 K/uL (130-400); RED CELL DISTRIBUTION WIDTH 14.4 % (11.5-14.5); WHITE BLOOD COUNT 12.1 K/uL (4.8-10.8)
[2017-04-27 09:20] LABS: BILIRUBIN,TOTAL 0.4 mg/dL (0.2-1.3); CALCIUM 8.4 mg/dl (8.6-10.4); POTASSIUM 3.9 mmol/L (3.6-5.2)
[2017-04-27] MEDS: Nystatin 100,000 Units/ml Oral Susp 5 ml UD PO SCH ×4 (10:35→21:11)
[2017-04-27] MEDS: Pantoprazole 40 mg EC Tab PO SCH (10:36)
--- NOTE | 2017-04-27 10:55 | CP.PCM.PN ---
Subjective - Date & Time of Evaluation Date of Evaluation: 04/27/17 Time of Evaluation: 08:20 - Subjective Subjective: the patient seen and examined Complaining of hoarseness of voice, throat pain and shortness of breath/cough Denies fever chills, denies chest pain Patient states her condition is not improving Objective - Vital Signs/Intake and Output Vital Signs (last 24 hours): Temp Pulse Resp BP Pulse Ox 97.9 F 84 20 157/83 H 98 04/27/17 07:41 04/27/17 07:41 04/27/17 07:41 04/27/17 07:41 04/27/17 07:41 Intake and Output: 04/27/17 04/27/17 06:59 18:59 Intake Total 650 Balance 650 - Medications Medications: Current Medications Acetylcysteine (Acetylcysteine 20%) 4 ml INH Q6H [facility] Last Admin: 04/27/17 07:23 Dose: Not Given Albuterol/Ipratropium (Duoneb 3 Mg/0.5 Mg (3 Ml) Ud) 3 ml INH RQ4 [facility] Last Admin: 04/27/17 07:23 Dose: 3 ml Alprazolam (Xanax) 0.25 mg PO BID [facility] Stop: 05/03/17 18:31 Last Admin: 04/27/17 10:36 Dose: 0.25 mg Budesonide (Pulmicort Respules) 0.5 mg INH RQ12 [facility] Last Admin: 04/27/17 07:23 Dose: 0.5 mg Heparin Sodium (Porcine) (Heparin) 5,000 units SC Q12 [facility] Last Admin: 04/27/17 10:37 Dose: 5,000 units Hydrochlorothiazide (Microzide) 12.5 mg PO DAILY [facility] Last Admin: 04/27/17 10:36 Dose: 12.5 mg Daptomycin 500 mg/ Sodium (Chloride) 100 mls @ 100 mls/hr IV Q24H [facility] Stop: 05/01/17 23:31 Last Admin: 04/26/17 23:55 Dose: 100 mls/hr Losartan Potassium (Cozaar) 100 mg PO DAILY [facility] Last Admin: 04/27/17 10:35 Dose: 100 mg Methylprednisolone (Solu-Medrol) 60 mg IV Q8H [facility] Last Admin: 04/27/17 08:29 Dose: 60 mg Nystatin (Nystatin Oral Susp) 5 ml PO QID [facility] Last Admin: 04/27/17 10:35 Dose: 5 ml Oseltamivir Phosphate (Tamiflu Cap) 75 mg PO BID [facility] Stop: 04/30/17 03:50 Last Admin: 04/27/17 10:36 Dose: 75 mg Pantoprazole Sodium (Protonix Ec Tab) 40 mg PO DAILY [facility] Last Admin: 04/27/17 10:36 Dose: 40 mg Promethazine HCl/Dextromethorphan (Phenergan Dm Syrup) 5 ml PO Q6H PRN PRN Reason: Cough Last Admin: 04/26/17 23:10 Dose: 5 ml - Labs Labs: 04/27/17 08:03 04/27/17 08:03 PT 10.9 SECONDS (9.7-12.2) 04/23/17 17:14 INR 1.0 04/23/17 17:14 APTT 25 SECONDS (21-34) 04/23/17 17:14 - Head Exam Head Exam: ATRAUMATIC, NORMOCEPHALIC - Eye Exam Eye Exam: Normal appearance - ENT Exam ENT Exam: Mucous Membranes Moist - Neck Exam Neck Exam: Normal Inspection - Respiratory Exam Respiratory Exam: Rhonchi, Wheezes - Cardiovascular Exam Cardiovascular Exam: REGULAR RHYTHM - GI/Abdominal Exam GI & Abdominal Exam: Soft, Normal Bowel Sounds - Extremities Exam Extremities Exam: Normal Inspection Assessment and Plan (1) Asthma exacerbation Assessment & Plan: continue IV steroids, nebulizer treatment and antibiotics patient started on nystatin ENT evaluation for hoarseness of voice and worsening symptoms Status: Acute
[2017-04-27 11:03] LABS: NEUTROPHIL 86 % (50-75); REACTIVE LYMPHOCYTES 1 % (0-0); TOTAL CELLS COUNTED 100
[2017-04-27 11:04] LABS: LARGE PLATELETS PRESENT
--- NOTE | 2017-04-27 13:46 | CP.PCM.PN ---
Subjective - Date & Time of Evaluation Date of Evaluation: 04/27/17 Time of Evaluation: 13:45 - Subjective Subjective: CHIEF COMPLAINTS TODAY : SOB/WHEEZING COUGH WITH WHITE EXP CXR NO INFILTRATE ROS. HEENT : N. Resp : No ,pleuritic CP ,or hemoptysis Cardio : No anginal CP, PND, orthopnea, palpitation GI : No abd.pain, n/v ,diarrhea or GI bleeding . 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 Musculoskel : No joint swelling , Derm : No rash Psych : Normal affect. Ext : No swelling ,calf pain PE. Pt. is alert awake in no distress. V.S As noted in the chart Head ,ear nose,throat and eyes : Normal. Neck : Supple with normal carotids. Lungs: WAI RONCHI Heart : S1 & S2 normal with S4. No murmur. Abd : Soft non tender with normal bowel sounds. Neuro : Moves all ext. with no localized deficit. Ext : No edema with intact pulses.Non tender calves Derm : No rashes or decubitus ulcer. LABS/RADIOLOGY: ASSESSMENT/PLAN : IV AB /STEROIDS/NEB ? BIPAP , WILL D/W PULM Objective - Vital Signs/Intake and Output Vital Signs (last 24 hours): Temp Pulse Resp BP Pulse Ox 97.9 F 84 20 157/83 H 98 04/27/17 07:41 04/27/17 07:41 04/27/17 07:41 04/27/17 07:41 04/27/17 07:41 Intake and Output: 04/27/17 04/27/17 11:59 23:59 Intake Total 300 Balance 300 - Medications Medications: Current Medications Acetylcysteine (Acetylcysteine 20%) 4 ml INH Q6H [facility] Last Admin: 04/27/17 07:23 Dose: Not Given Albuterol/Ipratropium (Duoneb 3 Mg/0.5 Mg (3 Ml) Ud) 3 ml INH RQ4 [facility] Last Admin: 04/27/17 11:10 Dose: 3 ml Alprazolam (Xanax) 0.25 mg PO BID [facility] Stop: 05/03/17 18:31 Last Admin: 04/27/17 10:36 Dose: 0.25 mg Budesonide (Pulmicort Respules) 0.5 mg INH RQ12 [facility] Last Admin: 04/27/17 07:23 Dose: 0.5 mg Heparin Sodium (Porcine) (Heparin) 5,000 units SC Q12 [facility] Last Admin: 04/27/17 10:37 Dose: 5,000 units Hydrochlorothiazide (Microzide) 12.5 mg PO DAILY [facility] Last Admin: 04/27/17 10:36 Dose: 12.5 mg Daptomycin 500 mg/ Sodium (Chloride) 100 mls @ 100 mls/hr IV Q24H [facility] Stop: 05/01/17 23:31 Last Admin: 04/26/17 23:55 Dose: 100 mls/hr Losartan Potassium (Cozaar) 100 mg PO DAILY [facility] Last Admin: 04/27/17 10:35 Dose: 100 mg Methylprednisolone (Solu-Medrol) 60 mg IV Q8H [facility] Last Admin: 04/27/17 08:29 Dose: 60 mg Nystatin (Nystatin Oral Susp) 5 ml PO QID [facility] Last Admin: 04/27/17 13:41 Dose: 5 ml Oseltamivir Phosphate (Tamiflu Cap) 75 mg PO BID [facility] Stop: 04/30/17 03:50 Last Admin: 04/27/17 10:36 Dose: 75 mg Pantoprazole Sodium (Protonix Ec Tab) 40 mg PO DAILY [facility] Last Admin: 04/27/17 10:36 Dose: 40 mg Promethazine HCl/Dextromethorphan (Phenergan Dm Syrup) 5 ml PO Q6H PRN PRN Reason: Cough Last Admin: 04/26/17 23:10 Dose: 5 ml - Labs Labs: 04/27/17 08:03 04/27/17 08:03 PT 10.9 SECONDS (9.7-12.2) 04/23/17 17:14 INR 1.0 04/23/17 17:14 APTT 25 SECONDS (21-34) 04/23/17 17:14 Assessment and Plan (1) HTN (hypertension) Status: Chronic (2) Asthma exacerbation Status: Acute (3) COPD exacerbation Status: Acute (4) GERD (gastroesophageal reflux disease) Status: Chronic (5) Hyperlipidemia Status: Chronic
--- NOTE | 2017-04-27 15:51 | OP ---
PROCEDURE DATE: PREOPERATIVE DIAGNOSIS: Dysphagia. POSTOPERATIVE DIAGNOSIS: Dysphagia. PROCEDURE: Flexible laryngoscopy. SIGNIFICANT FINDINGS: Supraglottic erythema. DESCRIPTION OF PROCEDURE: The patient was placed in the seated position. The nose was decongested using Afrin. A flexible laryngoscope was inserted into the nasal cavity, passed through nasopharynx, oropharynx and hypopharynx. The pharyngeal garcia, base of tongue, vallecula, epiglottis, AE folds, false cords, true cords, pyriform sinuses, arytenoids were brought into view. Mild supraglottic erythema was noted. No edema. Vocal cords were mobile bilaterally. The scope was removed. The patient tolerated the procedure well. The patient was assessed as having supraglottitis. Recommend antibiotics. Follow up as an outpatient in the office. Zach Campos MD
[2017-04-27] MEDS: Benzocaine/Menthol (Cepacol) Lozenge MT SCH ×2 (18:29→21:12)
--- NOTE | 2017-04-27 23:45 | CP.PCM.PN ---
Subjective - Date & Time of Evaluation Date of Evaluation: 04/27/17 Time of Evaluation: 23:45 - Subjective Subjective: CHIEF COMPLAINTS TODAY : afebrile c/o dry cough/ HOARSENESS STILL W SOB/WHEEZING ROS. HEENT : N. Resp : No ,pleuritic CP ,or hemoptysis Cardio : No anginal CP, PND, orthopnea, palpitation GI : No abd.pain, n/v ,diarrhea or GI bleeding . 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 Musculoskel : No joint swelling , Derm : No rash Psych : Normal affect. Ext : No swelling ,calf pain PE. Pt. is alert awake in no distress. V.S As noted in the chart Head ,ear nose,throat and eyes : Normal. Neck : Supple with normal carotids. Lungs: WAI RONCHI /EXPIRATORY WHEEZE. Heart : S1 & S2 normal with S4. No murmur. Abd : Soft non tender with normal bowel sounds. Neuro : Moves all ext. with no localized deficit. Ext : No edema with intact pulses.Non tender calves Derm : No rashes or decubitus ulcer. LABS/RADIOLOGY: CHEST X-RAY MILD BY BASILAR ATELECTASIS. CARDIOMEGALY AND ECTATIC AORTA wbc 12.1 ESR 47, CREATININE 1.2/bun 45 pRO-CALCITONIN 0.05 LOW ASSESSMENT/PLAN : EXACERBATION OF BRONCHIAL ASTHMA BRONCHIOLITIS? VIRAL /FLUE HYPERTENSION. GERD. PLAN START iv tYGACIL 100 MG LOADING DOSE,04/26/17 fOLLOWED BY 50 MG EVERY 12 HOURLY IF TOLERATED. pLEASE INFUSE THE FIRST DOSE over 90 MINUTES. PATIENT DENIES ANY REACTION TO tYGACIL. pULMONARY F/U NOTED -FOR ENT EVALUATION. CONTINUE NEBULIZER THERAPY. iv STEROIDS TAMIFLU 75 MG BY MOUTH TWICE A DAY X 5DAYS 04/25/17. PULMONARY TOILET. Objective - Vital Signs/Intake and Output Vital Signs (last 24 hours): Temp Pulse Resp BP Pulse Ox 98 F 77 22 157/83 H 96 04/27/17 23:23 04/27/17 23:23 04/27/17 23:23 04/27/17 23:23 04/27/17 23:23 Intake and Output: 04/27/17 04/28/17 18:59 06:59 Intake Total 250 Balance 250 - Medications Medications: Current Medications Acetylcysteine (Acetylcysteine 20%) 4 ml INH Q6H [facility] Last Admin: 04/27/17 16:07 Dose: Not Given Albuterol/Ipratropium (Duoneb 3 Mg/0.5 Mg (3 Ml) Ud) 3 ml INH RQ4 [facility] Last Admin: 04/27/17 23:36 Dose: 3 ml Alprazolam (Xanax) 0.25 mg PO HS [facility] Stop: 05/04/17 22:01 Last Admin: 04/27/17 21:44 Dose: Not Given Benzocaine/Menthol (Cepacol Sore Throat) 1 pravin MT QID [facility] Last Admin: 04/27/17 21:12 Dose: 1 pravin Budesonide (Pulmicort Respules) 0.5 mg INH RQ12 [facility] Last Admin: 04/27/17 07:23 Dose: 0.5 mg Guaifenesin (Robitussin) 100 mg PO Q4H PRN PRN Reason: Cough Heparin Sodium (Porcine) (Heparin) 5,000 units SC Q12 [facility] Last Admin: 04/27/17 21:11 Dose: 5,000 units Hydrochlorothiazide (Microzide) 12.5 mg PO DAILY [facility] Last Admin: 04/27/17 10:36 Dose: 12.5 mg Tigecycline 50 mg/ Sodium (Chloride) 100 mls @ 100 mls/hr IVPB Q12H [facility] Last Admin: 04/27/17 18:29 Dose: 100 mls/hr Losartan Potassium (Cozaar) 100 mg PO DAILY [facility] Last Admin: 04/27/17 10:35 Dose: 100 mg Methylprednisolone (Solu-Medrol) 60 mg IV Q8H [facility] Last Admin: 04/27/17 16:30 Dose: 60 mg Nystatin (Nystatin Oral Susp) 5 ml PO QID [facility] Last Admin: 04/27/17 21:11 Dose: 5 ml Oseltamivir Phosphate (Tamiflu Cap) 75 mg PO BID [facility] Stop: 04/30/17 03:50 Last Admin: 04/27/17 18:31 Dose: 75 mg Pantoprazole Sodium (Protonix Ec Tab) 40 mg PO DAILY [facility] Last Admin: 04/27/17 10:36 Dose: 40 mg Promethazine HCl/Dextromethorphan (Phenergan Dm Syrup) 5 ml PO Q6H PRN PRN Reason: Cough Last Admin: 04/26/17 23:10 Dose: 5 ml - Labs Labs: 04/27/17 08:03 04/27/17 08:03 PT 10.9 SECONDS (9.7-12.2) 04/23/17 17:14 INR 1.0 04/23/17 17:14 APTT 25 SECONDS (21-34) 04/23/17 17:14 Assessment and Plan (1) Asthma exacerbation Status: Acute (2) Bronchitis Status: Acute (3) HTN (hypertension) Status: Chronic (4) GERD (gastroesophageal reflux disease) Status: Chronic
[2017-04-28] MEDS: Albuterol-Ipratrop 3 mg / 0.5 (3 ml) UD INH SCH ×5 (03:21→19:28)
[2017-04-28] MEDS: Budesonide 0.5 mg/2 ml Inhal Susp UD INH SCH ×2 (07:26→19:29)
[2017-04-28] MEDS: Acetylcysteine 20% Inhal Soln (4ml) INH SCH ×2 (07:27→19:28)
[2017-04-28 07:55] LABS: BASO % 0.1 % (0.0-2.0); HEMATOCRIT 36.9 % (34.0-47.0); LYMPH % 8.6 % (20.0-40.0); MEAN CELL VOLUME 96.1 fL (81.0-99.0); MEAN CORPUSCULAR HEMOGLOBIN 32.6 pg (27.0-31.0); MEAN PLATELET VOLUME 8.5 fL (7.2-11.7); MONO # 0.4 K/uL (0.0-0.8); MONO % 3.4 % (0.0-10.0); NRBC % 0.1 % (0.0-2.0); PLATELET COUNT 241 K/uL (130-400)
[2017-04-28 08:07] LABS: ALB/GLOB RATIO 1.5 (1.0-2.1); BILIRUBIN,TOTAL 0.4 mg/dL (0.2-1.3); CALCIUM 8.1 mg/dl (8.6-10.4); TOTAL PROTEIN 5.5 g/dL (6.3-8.3)
[2017-04-28] MEDS: Benzocaine/Menthol (Cepacol) Lozenge MT SCH ×4 (09:16→22:56)
[2017-04-28] MEDS: Pantoprazole 40 mg EC Tab PO SCH (09:17)
[2017-04-28] MEDS: Nystatin 100,000 Units/ml Oral Susp 5 ml UD PO SCH ×4 (09:17→21:52)
[2017-04-28] MEDS: Promethazine DM 6.25 mg-15 mg/5 ml Syrup PO PRN ×2 (09:25→16:50)
--- NOTE | 2017-04-28 10:42 | CP.PCM.PN ---
Subjective - Date & Time of Evaluation Date of Evaluation: 04/28/17 Time of Evaluation: 07:00 - Subjective Subjective: patient seen and examined. breathing much better Less cough Seen by ENT Afebrile Continue IV steroids, nebulizer treatment, antibiotics and Objective - Vital Signs/Intake and Output Vital Signs (last 24 hours): Temp Pulse Resp BP Pulse Ox 98.6 F 80 20 159/90 H 98 04/28/17 08:10 04/28/17 08:10 04/28/17 08:10 04/28/17 08:10 04/28/17 08:10 Intake and Output: 04/28/17 04/28/17 06:59 18:59 Intake Total 550 Balance 550 - Medications Medications: Current Medications Acetylcysteine (Acetylcysteine 20%) 4 ml INH Q6H [facility] Last Admin: 04/28/17 07:27 Dose: Not Given Albuterol/Ipratropium (Duoneb 3 Mg/0.5 Mg (3 Ml) Ud) 3 ml INH RQ4 [facility] Last Admin: 04/28/17 07:24 Dose: 3 ml Alprazolam (Xanax) 0.25 mg PO HS [facility] Stop: 05/04/17 22:01 Last Admin: 04/27/17 21:44 Dose: Not Given Benzocaine/Menthol (Cepacol Sore Throat) 1 pravin MT QID [facility] Last Admin: 04/28/17 09:16 Dose: 1 pravin Budesonide (Pulmicort Respules) 0.5 mg INH RQ12 [facility] Last Admin: 04/28/17 07:26 Dose: 0.5 mg Guaifenesin (Robitussin) 100 mg PO Q4H PRN PRN Reason: Cough Heparin Sodium (Porcine) (Heparin) 5,000 units SC Q12 [facility] Last Admin: 04/28/17 09:17 Dose: 5,000 units Hydrochlorothiazide (Microzide) 12.5 mg PO DAILY [facility] Last Admin: 04/28/17 09:17 Dose: 12.5 mg Tigecycline 50 mg/ Sodium (Chloride) 100 mls @ 100 mls/hr IVPB Q12H [facility] Last Admin: 04/28/17 06:02 Dose: 100 mls/hr Losartan Potassium (Cozaar) 100 mg PO DAILY [facility] Last Admin: 04/28/17 09:17 Dose: 100 mg Methylprednisolone (Solu-Medrol) 60 mg IV Q8H [facility] Last Admin: 04/28/17 08:08 Dose: 60 mg Nystatin (Nystatin Oral Susp) 5 ml PO QID [facility] Last Admin: 04/28/17 09:17 Dose: 5 ml Oseltamivir Phosphate (Tamiflu Cap) 75 mg PO BID [facility] Stop: 04/30/17 03:50 Last Admin: 04/28/17 09:17 Dose: 75 mg Pantoprazole Sodium (Protonix Ec Tab) 40 mg PO DAILY [facility] Last Admin: 04/28/17 09:17 Dose: 40 mg Promethazine HCl/Dextromethorphan (Phenergan Dm Syrup) 5 ml PO Q6H PRN PRN Reason: Cough Last Admin: 04/28/17 09:25 Dose: 5 ml - Labs Labs: 04/28/17 07:35 04/28/17 07:35 PT 10.9 SECONDS (9.7-12.2) 04/23/17 17:14 INR 1.0 04/23/17 17:14 APTT 25 SECONDS (21-34) 04/23/17 17:14 Assessment and Plan (1) Asthma exacerbation Status: Acute
[2017-04-28 11:18] LABS: TOTAL CELLS COUNTED 100
[2017-04-28 11:19] LABS: NEUTROPHIL 87 % (50-75)
[2017-04-28] MEDS ORDERED: MethylPREDNISolone 40 mg Vial IV SCH ×2 (12:18→14:00)
--- NOTE | 2017-04-28 14:22 | CP.PCM.PN ---
Subjective - Date & Time of Evaluation Date of Evaluation: 04/28/17 Time of Evaluation: 14:20 - Subjective Subjective: CHIEF COMPLAINTS TODAY : SOB/WHEEZING COUGH WITH WHITE EXP CXR NO INFILTRATE ROS. HEENT : N. Resp : No ,pleuritic CP ,or hemoptysis Cardio : No anginal CP, PND, orthopnea, palpitation GI : No abd.pain, n/v ,diarrhea or GI bleeding . 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 Musculoskel : No joint swelling , Derm : No rash Psych : Normal affect. Ext : No swelling ,calf pain PE. Pt. is alert awake in no distress. V.S As noted in the chart Head ,ear nose,throat and eyes : Normal. Neck : Supple with normal carotids. Lungs: WAI RONCHI Heart : S1 & S2 normal with S4. No murmur. Abd : Soft non tender with normal bowel sounds. Neuro : Moves all ext. with no localized deficit. Ext : No edema with intact pulses.Non tender calves Derm : No rashes or decubitus ulcer. LABS/RADIOLOGY: EVALUATED BY ENT : SUPRAGLOTITIS ASSESSMENT/PLAN : IV AB /STEROIDS/NEB Objective - Vital Signs/Intake and Output Vital Signs (last 24 hours): Temp Pulse Resp BP Pulse Ox 98.6 F 80 20 159/90 H 98 04/28/17 08:10 04/28/17 08:10 04/28/17 08:10 04/28/17 08:10 04/28/17 08:10 Intake and Output: 04/28/17 04/28/17 11:59 23:59 Intake Total 300 Balance 300 - Medications Medications: Current Medications Acetylcysteine (Acetylcysteine 20%) 4 ml INH Q6H [facility] Last Admin: 04/28/17 07:27 Dose: Not Given Albuterol/Ipratropium (Duoneb 3 Mg/0.5 Mg (3 Ml) Ud) 3 ml INH RQ4 [facility] Last Admin: 04/28/17 11:03 Dose: 3 ml Alprazolam (Xanax) 0.25 mg PO HS [facility] Stop: 05/04/17 22:01 Last Admin: 04/27/17 21:44 Dose: Not Given Benzocaine/Menthol (Cepacol Sore Throat) 1 pravin MT QID [facility] Last Admin: 04/28/17 13:49 Dose: Not Given Budesonide (Pulmicort Respules) 0.5 mg INH RQ12 [facility] Last Admin: 04/28/17 07:26 Dose: 0.5 mg Guaifenesin (Robitussin) 100 mg PO Q4H PRN PRN Reason: Cough Heparin Sodium (Porcine) (Heparin) 5,000 units SC Q12 [facility] Last Admin: 04/28/17 09:17 Dose: 5,000 units Hydrochlorothiazide (Microzide) 12.5 mg PO DAILY [facility] Last Admin: 04/28/17 09:17 Dose: 12.5 mg Tigecycline 50 mg/ Sodium (Chloride) 100 mls @ 100 mls/hr IVPB Q12H [facility] Last Admin: 04/28/17 06:02 Dose: 100 mls/hr Losartan Potassium (Cozaar) 100 mg PO DAILY [facility] Last Admin: 04/28/17 09:17 Dose: 100 mg Methylprednisolone (Solu-Medrol) 40 mg IV Q8H [facility] Last Admin: 04/28/17 13:59 Dose: 40 mg Nystatin (Nystatin Oral Susp) 5 ml PO QID [facility] Last Admin: 04/28/17 13:59 Dose: 5 ml Oseltamivir Phosphate (Tamiflu Cap) 75 mg PO BID [facility] Stop: 04/30/17 03:50 Last Admin: 04/28/17 09:17 Dose: 75 mg Pantoprazole Sodium (Protonix Ec Tab) 40 mg PO DAILY [facility] Last Admin: 04/28/17 09:17 Dose: 40 mg Promethazine HCl/Dextromethorphan (Phenergan Dm Syrup) 5 ml PO Q6H PRN PRN Reason: Cough Last Admin: 04/28/17 09:25 Dose: 5 ml - Labs Labs: 04/28/17 07:35 04/28/17 07:35 PT 10.9 SECONDS (9.7-12.2) 04/23/17 17:14 INR 1.0 04/23/17 17:14 APTT 25 SECONDS (21-34) 04/23/17 17:14 Assessment and Plan (1) HTN (hypertension) Status: Chronic (2) Asthma exacerbation Status: Acute (3) COPD exacerbation Status: Acute (4) GERD (gastroesophageal reflux disease) Status: Chronic (5) Hyperlipidemia Status: Chronic
[2017-04-28] MEDS: Potassium Chloride 20 mEq/15 ml LIQ UD PO SCH ×2 (15:30→18:14)
--- NOTE | 2017-04-28 19:47 | CP.PCM.PN ---
Subjective - Date & Time of Evaluation Date of Evaluation: 04/28/17 Time of Evaluation: 19:47 - Subjective Subjective: CHIEF COMPLAINTS TODAY : afebrile LESS HOARSE. STILL COMPLAINS OFF CONGESTION AND TIGHTNESS Seen by ENT-s/p laryngoscopy-SUPRAGLOTTITIS ROS. HEENT : N. Resp : No ,pleuritic CP ,or hemoptysis Cardio : No anginal CP, PND, orthopnea, palpitation GI : No abd.pain, n/v ,diarrhea or GI bleeding . 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 Musculoskel : No joint swelling , Derm : No rash Psych : Normal affect. Ext : No swelling ,calf pain PE. Pt. is alert awake in no distress. V.S As noted in the chart Head ,ear nose,throat and eyes : Normal. Neck : Supple with normal carotids. Lungs: WAI RONCHI /EXPIRATORY WHEEZE. Heart : S1 & S2 normal with S4. No murmur. Abd : Soft non tender with normal bowel sounds. Neuro : Moves all ext. with no localized deficit. Ext : No edema with intact pulses.Non tender calves Derm : No rashes or decubitus ulcer. LABS/RADIOLOGY: CHEST X-RAY MILD BY BASILAR ATELECTASIS. CARDIOMEGALY AND ECTATIC AORTA wbc 12.0 ESR 47, CREATININE 1.2/bun 53 LFTS-N PRO-CALCITONIN 0.05 LOW ASSESSMENT/PLAN : EXACERBATION OF BRONCHIAL ASTHMA BRONCHIOLITIS? VIRAL /FLUE R/O SUPERINFECTION HYPERTENSION. GERD. PLAN ON iv tYGACIL 100 MG LOADING DOSE,04/26/17 fOLLOWED BY 50 MG EVERY 12 HOURLY IF TOLERATED. pLEASE INFUSE THE FIRST DOSE over 90 MINUTES. PATIENT DENIES ANY REACTION TO tYGACIL. pULMONARY F/U NOTED -FOR ENT EVALUATION. CONTINUE NEBULIZER THERAPY. iv STEROIDS TAMIFLU 75 MG BY MOUTH TWICE A DAY X 5DAYS 04/25/17.-04/29/17 PULMONARY TOILET. Objective - Vital Signs/Intake and Output Vital Signs (last 24 hours): Temp Pulse Resp BP Pulse Ox 97.9 F 78 20 168/93 H 97 04/28/17 16:10 04/28/17 16:10 04/28/17 16:10 04/28/17 16:10 04/28/17 16:10 Intake and Output: 04/28/17 04/29/17 18:59 06:59 Intake Total 350 Balance 350 - Medications Medications: Current Medications Acetylcysteine (Acetylcysteine 20%) 4 ml INH Q6H [facility] Last Admin: 04/28/17 19:28 Dose: Not Given Albuterol/Ipratropium (Duoneb 3 Mg/0.5 Mg (3 Ml) Ud) 3 ml INH RQ4 [facility] Last Admin: 04/28/17 19:28 Dose: 3 ml Alprazolam (Xanax) 0.25 mg PO HS [facility] Stop: 05/04/17 22:01 Last Admin: 04/27/17 21:44 Dose: Not Given Benzocaine/Menthol (Cepacol Sore Throat) 1 pravin MT QID [facility] Last Admin: 04/28/17 18:52 Dose: Not Given Budesonide (Pulmicort Respules) 0.5 mg INH RQ12 [facility] Last Admin: 04/28/17 19:29 Dose: 0.5 mg Guaifenesin (Robitussin) 100 mg PO Q4H PRN PRN Reason: Cough Heparin Sodium (Porcine) (Heparin) 5,000 units SC Q12 [facility] Last Admin: 04/28/17 09:17 Dose: 5,000 units Hydrochlorothiazide (Microzide) 12.5 mg PO DAILY [facility] Last Admin: 04/28/17 09:17 Dose: 12.5 mg Tigecycline 50 mg/ Sodium (Chloride) 100 mls @ 100 mls/hr IVPB Q12H [facility] Last Admin: 04/28/17 18:13 Dose: 100 mls/hr Losartan Potassium (Cozaar) 100 mg PO DAILY [facility] Last Admin: 04/28/17 09:17 Dose: 100 mg Methylprednisolone (Solu-Medrol) 40 mg IV Q8H [facility] Last Admin: 04/28/17 13:59 Dose: 40 mg Nifedipine (Procardia) 10 mg PO DAILY [facility] Last Admin: 04/28/17 16:55 Dose: 10 mg Nystatin (Nystatin Oral Susp) 5 ml PO QID [facility] Last Admin: 04/28/17 18:14 Dose: 5 ml Oseltamivir Phosphate (Tamiflu Cap) 75 mg PO BID [facility] Stop: 04/30/17 03:50 Last Admin: 04/28/17 18:13 Dose: 75 mg Pantoprazole Sodium (Protonix Ec Tab) 40 mg PO DAILY [facility] Last Admin: 04/28/17 09:17 Dose: 40 mg Promethazine HCl/Dextromethorphan (Phenergan Dm Syrup) 5 ml PO Q6H PRN PRN Reason: Cough Last Admin: 04/28/17 16:50 Dose: 5 ml - Labs Labs: 04/28/17 07:35 04/28/17 07:35 PT 10.9 SECONDS (9.7-12.2) 04/23/17 17:14 INR 1.0 04/23/17 17:14 APTT 25 SECONDS (21-34) 04/23/17 17:14 Assessment and Plan (1) Asthma exacerbation Status: Acute (2) Bronchitis Status: Acute (3) HTN (hypertension) Status: Chronic (4) GERD (gastroesophageal reflux disease) Status: Chronic
[2017-04-28] MEDS: MethylPREDNISolone 40 mg Vial IV SCH (21:50)
[2017-04-29] MEDS: Albuterol-Ipratrop 3 mg / 0.5 (3 ml) UD INH SCH ×6 (01:16→21:32)
[2017-04-29] MEDS: Acetylcysteine 20% Inhal Soln (4ml) INH SCH ×2 (01:18→07:24)
[2017-04-29] MEDS: MethylPREDNISolone 40 mg Vial IV SCH ×3 (06:00→21:36)
[2017-04-29] MEDS: Budesonide 0.5 mg/2 ml Inhal Susp UD INH SCH ×2 (07:23→21:32)
[2017-04-29 08:17] LABS: BASO % 0.2 % (0.0-2.0); HEMATOCRIT 39.6 % (34.0-47.0); LYMPH # 0.8 K/uL (1.0-4.3); LYMPH % 7.5 % (20.0-40.0); MEAN CELL VOLUME 96.1 fL (81.0-99.0); MEAN CORPUSCULAR HEMOGLOBIN 32.3 pg (27.0-31.0); MEAN CORPUSCULAR HGB CONC 33.6 g/dL (33.0-37.0); MEAN PLATELET VOLUME 8.4 fL (7.2-11.7); MONO # 0.3 K/uL (0.0-0.8); NRBC % 0.1 % (0.0-2.0); PLATELET COUNT 319 K/uL (130-400); RED CELL DISTRIBUTION WIDTH 14.6 % (11.5-14.5); WHITE BLOOD COUNT 11.2 K/uL (4.8-10.8)
[2017-04-29 08:49] LABS: ALB/GLOB RATIO 1.4 (1.0-2.1); BILIRUBIN,TOTAL 0.5 mg/dL (0.2-1.3); CALCIUM 8.1 mg/dl (8.6-10.4); TOTAL PROTEIN 5.6 g/dL (6.3-8.3)
[2017-04-29] MEDS: Benzocaine/Menthol (Cepacol) Lozenge MT SCH ×4 (09:57→22:20)
[2017-04-29] MEDS: Nystatin 100,000 Units/ml Oral Susp 5 ml UD PO SCH ×4 (10:19→21:38)
[2017-04-29] MEDS: Pantoprazole 40 mg EC Tab PO SCH (10:20)
[2017-04-29] MEDS: Promethazine DM 6.25 mg-15 mg/5 ml Syrup PO PRN (10:20)
[2017-04-29 11:02] LABS: NEUTROPHIL 90 % (50-75); REACTIVE LYMPHOCYTES 2 % (0-0); TOTAL CELLS COUNTED 100
--- NOTE | 2017-04-29 15:25 | CP.PCM.PN ---
Subjective - Date & Time of Evaluation Date of Evaluation: 04/29/17 Time of Evaluation: 15:25 - Subjective Subjective: CHIEF COMPLAINTS TODAY : SOB/WHEEZING COUGH WITH WHITE EXP CXR NO INFILTRATE ROS. HEENT : N. Resp : No ,pleuritic CP ,or hemoptysis Cardio : No anginal CP, PND, orthopnea, palpitation GI : No abd.pain, n/v ,diarrhea or GI bleeding . 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 Musculoskel : No joint swelling , Derm : No rash Psych : Normal affect. Ext : No swelling ,calf pain PE. Pt. is alert awake in no distress. V.S As noted in the chart Head ,ear nose,throat and eyes : Normal. Neck : Supple with normal carotids. Lungs: WAI RONCHI Heart : S1 & S2 normal with S4. No murmur. Abd : Soft non tender with normal bowel sounds. Neuro : Moves all ext. with no localized deficit. Ext : No edema with intact pulses.Non tender calves Derm : No rashes or decubitus ulcer. LABS/RADIOLOGY: EVALUATED BY ENT : SUPRAGLOTITIS ASSESSMENT/PLAN : INCREASE SOLUMEDROL TO 60 Q6H Objective - Vital Signs/Intake and Output Vital Signs (last 24 hours): Temp Pulse Resp BP Pulse Ox 98.1 F 80 20 166/90 H 95 04/29/17 07:57 04/29/17 07:57 04/29/17 07:57 04/29/17 07:57 04/29/17 07:57 Intake and Output: 04/29/17 04/29/17 11:59 23:59 Intake Total 300 Balance 300 - Medications Medications: Current Medications Acetylcysteine (Acetylcysteine 20%) 4 ml INH Q6H [facility] Last Admin: 04/29/17 07:24 Dose: Not Given Albuterol/Ipratropium (Duoneb 3 Mg/0.5 Mg (3 Ml) Ud) 3 ml INH RQ4 [facility] Last Admin: 04/29/17 11:21 Dose: 3 ml Alprazolam (Xanax) 0.25 mg PO HS [facility] Stop: 05/04/17 22:01 Last Admin: 04/28/17 21:52 Dose: 0.25 mg Benzocaine/Menthol (Cepacol Sore Throat) 1 pravin MT QID [facility] Last Admin: 04/29/17 13:23 Dose: Not Given Budesonide (Pulmicort Respules) 0.5 mg INH RQ12 [facility] Last Admin: 04/29/17 07:23 Dose: 0.5 mg Guaifenesin (Robitussin) 100 mg PO Q4H PRN PRN Reason: Cough Heparin Sodium (Porcine) (Heparin) 5,000 units SC Q12 [facility] Last Admin: 04/29/17 10:19 Dose: 5,000 units Hydrochlorothiazide (Microzide) 12.5 mg PO DAILY [facility] Last Admin: 04/29/17 10:20 Dose: 12.5 mg Tigecycline 50 mg/ Sodium (Chloride) 100 mls @ 100 mls/hr IVPB Q12H [facility] Last Admin: 04/29/17 06:33 Dose: 100 mls/hr Lactulose (Enulose) 20 gm PO ONCE ONE Stop: 04/29/17 15:22 Lactulose (Enulose) 20 gm PO DAILY [facility] Losartan Potassium (Cozaar) 100 mg PO DAILY [facility] Last Admin: 04/29/17 10:20 Dose: 100 mg Methylprednisolone (Solu-Medrol) 60 mg IV Q8H [facility] Last Admin: 04/29/17 13:30 Dose: 60 mg Nifedipine (Procardia) 10 mg PO DAILY [facility] Last Admin: 04/29/17 10:20 Dose: 10 mg Nystatin (Nystatin Oral Susp) 5 ml PO QID [facility] Last Admin: 04/29/17 13:30 Dose: 5 ml Oseltamivir Phosphate (Tamiflu Cap) 75 mg PO BID [facility] Stop: 04/30/17 03:50 Last Admin: 04/29/17 10:20 Dose: 75 mg Pantoprazole Sodium (Protonix Ec Tab) 40 mg PO DAILY [facility] Last Admin: 04/29/17 10:20 Dose: 40 mg Promethazine HCl/Dextromethorphan (Phenergan Dm Syrup) 5 ml PO Q6H PRN PRN Reason: Cough Last Admin: 04/29/17 10:20 Dose: 5 ml - Labs Labs: 04/29/17 08:06 04/29/17 08:06 PT 10.9 SECONDS (9.7-12.2) 04/23/17 17:14 INR 1.0 04/23/17 17:14 APTT 25 SECONDS (21-34) 04/23/17 17:14 Assessment and Plan (1) HTN (hypertension) Status: Chronic (2) Asthma exacerbation Status: Acute (3) COPD exacerbation Status: Acute (4) GERD (gastroesophageal reflux disease) Status: Chronic (5) Hyperlipidemia Status: Chronic
--- NOTE | 2017-04-29 15:46 | CP.PCM.PN ---
Subjective - Date & Time of Evaluation Date of Evaluation: 04/29/17 Time of Evaluation: 15:46 - Subjective Subjective: CHIEF COMPLAINTS TODAY : afebrile LESS HOARSE. STILL CONGESTION ROS. HEENT : N. Resp : No ,pleuritic CP ,or hemoptysis Cardio : No anginal CP, PND, orthopnea, palpitation GI : No abd.pain, n/v ,diarrhea or GI bleeding . 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 Musculoskel : No joint swelling , Derm : No rash Psych : Normal affect. Ext : No swelling ,calf pain PE. Pt. is alert awake in no distress. V.S As noted in the chart Head ,ear nose,throat and eyes : Normal. Neck : Supple with normal carotids. Lungs: WAI RONCHI /EXPIRATORY WHEEZE. Heart : S1 & S2 normal with S4. No murmur. Abd : Soft non tender with normal bowel sounds. Neuro : Moves all ext. with no localized deficit. Ext : No edema with intact pulses.Non tender calves Derm : No rashes or decubitus ulcer. LABS/RADIOLOGY: INFLUENZA A-Ab +ve 1:16 INFLUENZA B Ab +ve 1:8 CHEST X-RAY MILD BY BASILAR ATELECTASIS. CARDIOMEGALY AND ECTATIC AORTA wbc 11.2 better ESR 47, CREATININE 1.2/bun 53 LFTS-N PRO-CALCITONIN 0.05 LOW ASSESSMENT/PLAN : EXACERBATION OF BRONCHIAL ASTHMA BRONCHIOLITIS? VIRAL /FLUE R/O SUPERINFECTION HYPERTENSION. GERD. PLAN ON iv tYGACIL 100 MG LOADING DOSE,04/26/17 fOLLOWED BY 50 MG EVERY 12 HOURLY CONTINUE NEBULIZER THERAPY. INCREASED iv STEROIDS TAMIFLU 75 MG BY MOUTH TWICE A DAY X 5DAYS 04/25/17.-04/29/17 PULMONARY TOILET. PER PULMONARY. Objective - Vital Signs/Intake and Output Vital Signs (last 24 hours): Temp Pulse Resp BP Pulse Ox 98.1 F 80 20 166/90 H 95 04/29/17 07:57 04/29/17 07:57 04/29/17 07:57 04/29/17 07:57 04/29/17 07:57 Intake and Output: 04/29/17 04/29/17 06:59 18:59 Intake Total 350 700 Balance 350 700 - Medications Medications: Current Medications Acetylcysteine (Acetylcysteine 20%) 4 ml INH Q6H [facility] Last Admin: 04/29/17 07:24 Dose: Not Given Albuterol/Ipratropium (Duoneb 3 Mg/0.5 Mg (3 Ml) Ud) 3 ml INH RQ4 [facility] Last Admin: 04/29/17 11:21 Dose: 3 ml Alprazolam (Xanax) 0.25 mg PO HS [facility] Stop: 05/04/17 22:01 Last Admin: 04/28/17 21:52 Dose: 0.25 mg Benzocaine/Menthol (Cepacol Sore Throat) 1 pravin MT QID [facility] Last Admin: 04/29/17 13:23 Dose: Not Given Budesonide (Pulmicort Respules) 0.5 mg INH RQ12 [facility] Last Admin: 04/29/17 07:23 Dose: 0.5 mg Guaifenesin (Robitussin) 100 mg PO Q4H PRN PRN Reason: Cough Heparin Sodium (Porcine) (Heparin) 5,000 units SC Q12 [facility] Last Admin: 04/29/17 10:19 Dose: 5,000 units Hydrochlorothiazide (Microzide) 12.5 mg PO DAILY [facility] Last Admin: 04/29/17 10:20 Dose: 12.5 mg Tigecycline 50 mg/ Sodium (Chloride) 100 mls @ 100 mls/hr IVPB Q12H [facility] Last Admin: 04/29/17 06:33 Dose: 100 mls/hr Lactulose (Enulose) 20 gm PO DAILY [facility] Losartan Potassium (Cozaar) 100 mg PO DAILY [facility] Last Admin: 04/29/17 10:20 Dose: 100 mg Methylprednisolone (Solu-Medrol) 60 mg IV Q8H [facility] Last Admin: 04/29/17 13:30 Dose: 60 mg Nifedipine (Procardia) 10 mg PO DAILY [facility] Last Admin: 04/29/17 10:20 Dose: 10 mg Nystatin (Nystatin Oral Susp) 5 ml PO QID [facility] Last Admin: 04/29/17 13:30 Dose: 5 ml Oseltamivir Phosphate (Tamiflu Cap) 75 mg PO BID [facility] Stop: 04/30/17 03:50 Last Admin: 04/29/17 10:20 Dose: 75 mg Pantoprazole Sodium (Protonix Ec Tab) 40 mg PO DAILY [facility] Last Admin: 04/29/17 10:20 Dose: 40 mg Promethazine HCl/Dextromethorphan (Phenergan Dm Syrup) 5 ml PO Q6H PRN PRN Reason: Cough Last Admin: 04/29/17 10:20 Dose: 5 ml - Labs Labs: 04/29/17 08:06 04/29/17 08:06 PT 10.9 SECONDS (9.7-12.2) 04/23/17 17:14 INR 1.0 04/23/17 17:14 APTT 25 SECONDS (21-34) 04/23/17 17:14 Assessment and Plan (1) Asthma exacerbation Status: Acute (2) Bronchitis Status: Acute (3) HTN (hypertension) Status: Chronic (4) GERD (gastroesophageal reflux disease) Status: Chronic
[2017-04-30] MEDS: Acetylcysteine 20% Inhal Soln (4ml) INH SCH ×2 (00:27→07:12)
[2017-04-30] MEDS: Albuterol-Ipratrop 3 mg / 0.5 (3 ml) UD INH SCH ×3 (00:28→07:10)
[2017-04-30] MEDS: MethylPREDNISolone 40 mg Vial IV SCH ×3 (05:11→21:11)
[2017-04-30] MEDS: Budesonide 0.5 mg/2 ml Inhal Susp UD INH SCH ×2 (07:10→20:42)
[2017-04-30] MEDS: Pantoprazole 40 mg EC Tab PO SCH (10:15)
[2017-04-30] MEDS: Nystatin 100,000 Units/ml Oral Susp 5 ml UD PO SCH ×4 (10:15→21:13)
[2017-04-30] MEDS: Benzocaine/Menthol (Cepacol) Lozenge MT SCH ×4 (10:16→21:13)
--- NOTE | 2017-04-30 10:58 | CP.PCM.PN ---
Subjective - Date & Time of Evaluation Date of Evaluation: 04/30/17 Time of Evaluation: 07:20 - Subjective Subjective: the patient seen and examined Still complaining of shortness of breath and coug Complaining off throat pain Patient seen by ENT Also complaining of wheezing Objective - Vital Signs/Intake and Output Vital Signs (last 24 hours): Temp Pulse Resp BP Pulse Ox 98.7 F 89 20 133/78 96 04/30/17 08:25 04/30/17 08:25 04/30/17 08:25 04/30/17 08:25 04/30/17 08:25 Intake and Output: 04/30/17 04/30/17 06:59 18:59 Intake Total 500 Balance 500 - Medications Medications: Current Medications Acetylcysteine (Acetylcysteine 20%) 4 ml INH Q6H [facility] Last Admin: 04/30/17 07:12 Dose: Not Given Alprazolam (Xanax) 0.25 mg PO HS [facility] Stop: 05/04/17 22:01 Last Admin: 04/29/17 21:37 Dose: 0.25 mg Benzocaine/Menthol (Cepacol Sore Throat) 1 pravin MT QID [facility] Last Admin: 04/30/17 10:16 Dose: Not Given Budesonide (Pulmicort Respules) 0.5 mg INH RQ12 [facility] Last Admin: 04/30/17 07:10 Dose: 0.5 mg Guaifenesin (Robitussin) 100 mg PO Q4H PRN PRN Reason: Cough Heparin Sodium (Porcine) (Heparin) 5,000 units SC Q12 [facility] Last Admin: 04/30/17 10:15 Dose: 5,000 units Hydrochlorothiazide (Microzide) 12.5 mg PO DAILY [facility] Last Admin: 04/30/17 10:15 Dose: 12.5 mg Tigecycline 50 mg/ Sodium (Chloride) 100 mls @ 100 mls/hr IVPB Q12H [facility] Last Admin: 04/30/17 06:11 Dose: 100 mls/hr Ipratropium [place] (Atrovent) 0.5 mg IH [id number] [facility] Lactulose (Enulose) 20 gm PO DAILY [facility] Last Admin: 04/30/17 10:16 Dose: Not Given Losartan Potassium (Cozaar) 100 mg PO DAILY [facility] Last Admin: 04/30/17 10:14 Dose: 100 mg Methylprednisolone (Solu-Medrol) 60 mg IV Q8H [facility] Last Admin: 04/30/17 05:11 Dose: 60 mg Nifedipine (Procardia) 10 mg PO DAILY [facility] Last Admin: 04/30/17 10:14 Dose: 10 mg Nystatin (Nystatin Oral Susp) 5 ml PO QID [facility] Last Admin: 04/30/17 10:15 Dose: 5 ml Pantoprazole Sodium (Protonix Ec Tab) 40 mg PO DAILY [facility] Last Admin: 04/30/17 10:15 Dose: 40 mg Promethazine HCl/Dextromethorphan (Phenergan Dm Syrup) 5 ml PO Q6H PRN PRN Reason: Cough Last Admin: 04/29/17 10:20 Dose: 5 ml - Labs Labs: 04/29/17 08:06 04/29/17 08:06 PT 10.9 SECONDS (9.7-12.2) 04/23/17 17:14 INR 1.0 04/23/17 17:14 APTT 25 SECONDS (21-34) 04/23/17 17:14 - Head Exam Head Exam: ATRAUMATIC, NORMOCEPHALIC - Eye Exam Eye Exam: Normal appearance - ENT Exam ENT Exam: Mucous Membranes Moist - Neck Exam Neck Exam: Normal Inspection - Respiratory Exam Respiratory Exam: Rhonchi, Wheezes - Cardiovascular Exam Cardiovascular Exam: REGULAR RHYTHM - GI/Abdominal Exam GI & Abdominal Exam: Soft, Normal Bowel Sounds - Extremities Exam Extremities Exam: Pedal Edema Assessment and Plan (1) Asthma exacerbation Assessment & Plan: still complaining off wheezing and shortness of breath On IV steroids Discontinue albuterol and continue ipratropium Continue antitussive Continue treatment for GERD Antibiotics per infectious disease Status: Acute
[2017-04-30] MEDS: Ipratropium 0.02% Inhal Soln (0.5 mg/2.5 ml) UD IH SCH ×3 (11:30→20:41)
--- NOTE | 2017-04-30 12:32 | CP.PCM.PN ---
Subjective - Date & Time of Evaluation Date of Evaluation: 04/30/17 Time of Evaluation: 12:32 - Subjective Subjective: CHIEF COMPLAINTS TODAY : SOB/WHEEZING COUGH WITH WHITE EXP CXR NO INFILTRATE ROS. HEENT : N. Resp : No ,pleuritic CP ,or hemoptysis Cardio : No anginal CP, PND, orthopnea, palpitation GI : No abd.pain, n/v ,diarrhea or GI bleeding . 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 Musculoskel : No joint swelling , Derm : No rash Psych : Normal affect. Ext : No swelling ,calf pain PE. Pt. is alert awake in no distress. V.S As noted in the chart Head ,ear nose,throat and eyes : Normal. Neck : Supple with normal carotids. Lungs: WAI RONCHI Heart : S1 & S2 normal with S4. No murmur. Abd : Soft non tender with normal bowel sounds. Neuro : Moves all ext. with no localized deficit. Ext : No edema with intact pulses.Non tender calves Derm : No rashes or decubitus ulcer. LABS/RADIOLOGY: EVALUATED BY ENT : SUPRAGLOTITIS ASSESSMENT/PLAN : INCREASE SOLUMEDROL TO 60 Q6H Objective - Vital Signs/Intake and Output Vital Signs (last 24 hours): Temp Pulse Resp BP Pulse Ox 98.7 F 89 20 133/78 96 04/30/17 08:25 04/30/17 08:25 04/30/17 08:25 04/30/17 08:25 04/30/17 08:25 - Medications Medications: Current Medications Alprazolam (Xanax) 0.25 mg PO HS [facility] Stop: 05/04/17 22:01 Last Admin: 04/29/17 21:37 Dose: 0.25 mg Benzocaine/Menthol (Cepacol Sore Throat) 1 praivn MT QID [facility] Last Admin: 04/30/17 10:16 Dose: Not Given Budesonide (Pulmicort Respules) 0.5 mg INH RQ12 [facility] Last Admin: 04/30/17 07:10 Dose: 0.5 mg Guaifenesin (Robitussin) 100 mg PO Q4H PRN PRN Reason: Cough Heparin Sodium (Porcine) (Heparin) 5,000 units SC Q12 [facility] Last Admin: 04/30/17 10:15 Dose: 5,000 units Hydrochlorothiazide (Microzide) 12.5 mg PO DAILY [facility] Last Admin: 04/30/17 10:15 Dose: 12.5 mg Tigecycline 50 mg/ Sodium (Chloride) 100 mls @ 100 mls/hr IVPB Q12H [facility] Last Admin: 04/30/17 06:11 Dose: 100 mls/hr Ipratropium [place] (Atrovent) 0.5 mg IH RQ6 [facility] Last Admin: 04/30/17 11:30 Dose: 0.5 mg Lactulose (Enulose) 20 gm PO DAILY [facility] Last Admin: 04/30/17 10:16 Dose: Not Given Losartan Potassium (Cozaar) 100 mg PO DAILY [facility] Last Admin: 04/30/17 10:14 Dose: 100 mg Methylprednisolone (Solu-Medrol) 60 mg IV Q8H [facility] Last Admin: 04/30/17 05:11 Dose: 60 mg Nifedipine (Procardia) 10 mg PO DAILY [facility] Last Admin: 04/30/17 10:14 Dose: 10 mg Nystatin (Nystatin Oral Susp) 5 ml PO QID [facility] Last Admin: 04/30/17 10:15 Dose: 5 ml Pantoprazole Sodium (Protonix Ec Tab) 40 mg PO DAILY [facility] Last Admin: 04/30/17 10:15 Dose: 40 mg Promethazine HCl/Dextromethorphan (Phenergan Dm Syrup) 5 ml PO Q6H PRN PRN Reason: Cough Last Admin: 04/29/17 10:20 Dose: 5 ml - Labs Labs: 04/29/17 08:06 04/29/17 08:06 PT 10.9 SECONDS (9.7-12.2) 04/23/17 17:14 INR 1.0 04/23/17 17:14 APTT 25 SECONDS (21-34) 04/23/17 17:14 Assessment and Plan (1) HTN (hypertension) Status: Chronic (2) Asthma exacerbation Status: Acute (3) COPD exacerbation Status: Acute (4) GERD (gastroesophageal reflux disease) Status: Chronic (5) Hyperlipidemia Status: Chronic
[2017-04-30] MEDS: guaiFENesin 100 mg/5 ml Syrup UD PO PRN (16:27)
--- NOTE | 2017-04-30 20:33 | CP.PCM.PN ---
Subjective - Date & Time of Evaluation Date of Evaluation: 04/30/17 Time of Evaluation: 20:33 - Subjective Subjective: CHIEF COMPLAINTS TODAY : afebrile DRY COUGH STILL COMPLAINS OF CONGESTION AND TIGHTNESS Seen by ENT-s/p laryngoscopy-SUPRAGLOTTITIS ROS. HEENT : N. Resp : No ,pleuritic CP ,or hemoptysis Cardio : No anginal CP, PND, orthopnea, palpitation GI : No abd.pain, n/v ,diarrhea or GI bleeding . 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 Musculoskel : No joint swelling , Derm : No rash Psych : Normal affect. Ext : No swelling ,calf pain PE. Pt. is alert awake in no distress. V.S As noted in the chart Head ,ear nose,throat and eyes : Normal. Neck : Supple with normal carotids. Lungs: WAI RONCHI /EXPIRATORY WHEEZE. Heart : S1 & S2 normal with S4. No murmur. Abd : Soft non tender with normal bowel sounds. Neuro : Moves all ext. with no localized deficit. Ext : No edema with intact pulses.Non tender calves Derm : No rashes or decubitus ulcer. LABS/RADIOLOGY: CHEST X-RAY MILD BY BASILAR ATELECTASIS. CARDIOMEGALY AND ECTATIC AORTA wbc 12.0 ESR 47, CREATININE 1.2/bun 53 LFTS-N PRO-CALCITONIN 0.05 LOW ASSESSMENT/PLAN : EXACERBATION OF BRONCHIAL ASTHMA BRONCHIOLITIS? VIRAL /FLUE R/O SUPERINFECTION ? FUNGAL HYPERTENSION. GERD. PLAN CHECK IMMUNOGLOBULINS IGG,IGE,IGM.IGD ASPERGILLUS ANTIBODIES AND ANTIGEN. ADD iv mYCAMINE 100 MG iv PIGGYBACK ONCE A DAY DAILY.05/01/17 ON iv tYGACIL 100 MG LOADING DOSE,04/26/17 fOLLOWED BY 50 MG EVERY 12 HOURLY IF TOLERATED. pLEASE INFUSE THE FIRST DOSE over 90 MINUTES. PATIENT DENIES ANY REACTION TO tYGACIL. pULMONARY F/U NOTED - CONTINUE NEBULIZER THERAPY. iv STEROIDS PATIENT STARTED ON SINGULAIR 10 MG BY MOUTH ONCE A DAY DAILY PER PULMONARY. OFF TAMIFLU 75 MG BY MOUTH TWICE A DAY X 5DAYS 04/25/17.-04/29/17 PULMONARY TOILET. Objective Objective - Vital Signs/Intake and Output Vital Signs (last 24 hours): Temp Pulse Resp BP Pulse Ox 98.4 F 90 20 152/83 H 95 04/30/17 15:00 04/30/17 15:00 04/30/17 15:00 04/30/17 15:00 04/30/17 15:00 Intake and Output: 04/30/17 05/01/17 18:59 06:59 Intake Total 500 Balance 500 - Medications Medications: Current Medications Alprazolam (Xanax) 0.25 mg PO HS [facility] Stop: 05/04/17 22:01 Last Admin: 04/29/17 21:37 Dose: 0.25 mg Benzocaine/Menthol (Cepacol Sore Throat) 1 pravin MT QID [facility] Last Admin: 04/30/17 17:26 Dose: Not Given Budesonide (Pulmicort Respules) 0.5 mg INH RQ12 [facility] Last Admin: 04/30/17 07:10 Dose: 0.5 mg Guaifenesin (Robitussin) 100 mg PO Q4H PRN PRN Reason: Cough Last Admin: 04/30/17 16:27 Dose: 100 mg Heparin Sodium (Porcine) (Heparin) 5,000 units SC Q12 [facility] Last Admin: 04/30/17 10:15 Dose: 5,000 units Hydrochlorothiazide (Microzide) 12.5 mg PO DAILY [facility] Last Admin: 04/30/17 10:15 Dose: 12.5 mg Tigecycline 50 mg/ Sodium (Chloride) 100 mls @ 100 mls/hr IVPB Q12H [facility] Last Admin: 04/30/17 17:25 Dose: 100 mls/hr Ipratropium [place] (Atrovent) 0.5 mg IH RQ6 [facility] Last Admin: 04/30/17 13:33 Dose: 0.5 mg Lactulose (Enulose) 20 gm PO DAILY [facility] Last Admin: 04/30/17 10:16 Dose: Not Given Losartan Potassium (Cozaar) 100 mg PO DAILY [facility] Last Admin: 04/30/17 10:14 Dose: 100 mg Methylprednisolone (Solu-Medrol) 60 mg IV Q8H [facility] Last Admin: 04/30/17 13:48 Dose: 60 mg Nifedipine (Procardia) 10 mg PO DAILY [facility] Last Admin: 04/30/17 10:14 Dose: 10 mg Nystatin (Nystatin Oral Susp) 5 ml PO QID [facility] Last Admin: 04/30/17 17:24 Dose: 5 ml Pantoprazole Sodium (Protonix Ec Tab) 40 mg PO DAILY [facility] Last Admin: 04/30/17 10:15 Dose: 40 mg Promethazine HCl/Dextromethorphan (Phenergan Dm Syrup) 5 ml PO Q6H PRN PRN Reason: Cough Last Admin: 04/29/17 10:20 Dose: 5 ml - Labs Labs: 04/29/17 08:06 04/29/17 08:06 PT 10.9 SECONDS (9.7-12.2) 04/23/17 17:14 INR 1.0 04/23/17 17:14 APTT 25 SECONDS (21-34) 04/23/17 17:14 Assessment and Plan (1) Asthma exacerbation Status: Acute (2) Bronchitis Status: Acute (3) HTN (hypertension) Status: Chronic (4) GERD (gastroesophageal reflux disease) Status: Chronic
[2017-05-01] MEDS: Micafungin 100 MG in Sodium Chloride 0.9% 100 ML IV SCH (00:30)
[2017-05-01] MEDS: Promethazine DM 6.25 mg-15 mg/5 ml Syrup PO PRN (00:50)
[2017-05-01] MEDS: Ipratropium 0.02% Inhal Soln (0.5 mg/2.5 ml) UD IH SCH ×4 (01:51→19:29)
[2017-05-01] MEDS: MethylPREDNISolone 40 mg Vial IV SCH ×3 (03:50→18:42)
[2017-05-01] MEDS: Budesonide 0.5 mg/2 ml Inhal Susp UD INH SCH ×2 (07:09→19:29)
[2017-05-01 07:39] LABS: BASO % 0.1 % (0.0-2.0); HEMATOCRIT 41.3 % (34.0-47.0); LYMPH # 0.7 K/uL (1.0-4.3); LYMPH % 6.1 % (20.0-40.0); MEAN CELL VOLUME 95.4 fL (81.0-99.0); MEAN CORPUSCULAR HEMOGLOBIN 32.1 pg (27.0-31.0); MEAN CORPUSCULAR HGB CONC 33.6 g/dL (33.0-37.0); MEAN PLATELET VOLUME 8.7 fL (7.2-11.7); MONO # 0.6 K/uL (0.0-0.8); NRBC % 0.1 % (0.0-2.0); PLATELET COUNT 342 K/uL (130-400); RED CELL DISTRIBUTION WIDTH 14.8 % (11.5-14.5); WHITE BLOOD COUNT 11.6 K/uL (4.8-10.8)
[2017-05-01 07:54] LABS: IMMUNOGLOBULIN A 204.4 mg/dL (70.0-400.0); IMMUNOGLOBULIN G 770.7 mg/dL (700.0-1600.0); IMMUNOGLOBULIN M 47.2 mg/dL (40.0-230.0)
[2017-05-01 08:10] LABS: ALB/GLOB RATIO 1.4 (1.0-2.1); BILIRUBIN,TOTAL 0.7 mg/dL (0.2-1.3); CALCIUM 8.2 mg/dl (8.6-10.4); POTASSIUM 3.1 mmol/L (3.6-5.2); TOTAL PROTEIN 5.3 g/dL (6.3-8.3)
[2017-05-01 09:23] LABS: NEUTROPHIL 87 % (50-75); TOTAL CELLS COUNTED 100
[2017-05-01] MEDS: Pantoprazole 40 mg EC Tab PO SCH (10:30)
[2017-05-01] MEDS: Benzocaine/Menthol (Cepacol) Lozenge MT SCH ×4 (10:31→21:33)
--- NOTE | 2017-05-01 14:07 | CP.PCM.PN ---
Subjective - Date & Time of Evaluation Date of Evaluation: 05/01/17 Time of Evaluation: 14:06 - Subjective Subjective: CHIEF COMPLAINTS TODAY : SOB/WHEEZING NOT MUCH IMPROVEMENT COUGH WITH WHITE EXP CXR NO INFILTRATE ROS. HEENT : N. Resp : No ,pleuritic CP ,or hemoptysis Cardio : No anginal CP, PND, orthopnea, palpitation GI : No abd.pain, n/v ,diarrhea or GI bleeding . 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 Musculoskel : No joint swelling , Derm : No rash Psych : Normal affect. Ext : No swelling ,calf pain PE. Pt. is alert awake in no distress. V.S As noted in the chart Head ,ear nose,throat and eyes : Normal. Neck : Supple with normal carotids. Lungs: WAI RONCHI Heart : S1 & S2 normal with S4. No murmur. Abd : Soft non tender with normal bowel sounds. Neuro : Moves all ext. with no localized deficit. Ext : No edema with intact pulses.Non tender calves Derm : No rashes or decubitus ulcer. LABS/RADIOLOGY: EVALUATED BY ENT : SUPRAGLOTITIS ASSESSMENT/PLAN : IV STEROIDS/AB AND NEB Objective - Vital Signs/Intake and Output Vital Signs (last 24 hours): Temp Pulse Resp BP Pulse Ox 98.5 F 89 20 145/85 95 05/01/17 07:58 05/01/17 07:58 05/01/17 07:58 05/01/17 07:58 05/01/17 07:58 Intake and Output: 05/01/17 05/01/17 11:59 23:59 Intake Total 470 Balance 470 - Medications Medications: Current Medications Alprazolam (Xanax) 0.25 mg PO HS [facility] Stop: 05/04/17 22:01 Last Admin: 04/30/17 21:19 Dose: 0.25 mg Benzocaine/Menthol (Cepacol Sore Throat) 1 pravin MT QID [facility] Last Admin: 05/01/17 13:04 Dose: Not Given Budesonide (Pulmicort Respules) 0.5 mg INH RQ12 [facility] Last Admin: 05/01/17 07:09 Dose: 0.5 mg Guaifenesin (Robitussin) 100 mg PO Q4H PRN PRN Reason: Cough Last Admin: 04/30/17 16:27 Dose: 100 mg Hydrochlorothiazide (Microzide) 12.5 mg PO DAILY [facility] Last Admin: 05/01/17 10:30 Dose: 12.5 mg Tigecycline 50 mg/ Sodium (Chloride) 100 mls @ 100 mls/hr IVPB Q12H [facility] Last Admin: 05/01/17 05:25 Dose: 100 mls/hr Micafungin Sodium 100 mg/ (Sodium Chloride) 100 mls @ 100 mls/hr IV Q24H [facility] Last Admin: 05/01/17 00:30 Dose: 100 mls/hr Ipratropium [place] (Atrovent) 0.5 mg IH RQ6 [facility] Last Admin: 05/01/17 13:37 Dose: 0.5 mg Lactulose (Enulose) 20 gm PO DAILY [facility] Last Admin: 05/01/17 10:29 Dose: 20 gm Losartan Potassium (Cozaar) 100 mg PO DAILY [facility] Last Admin: 05/01/17 10:28 Dose: 100 mg Methylprednisolone (Solu-Medrol) 60 mg IV Q8H [facility] Last Admin: 05/01/17 12:21 Dose: 60 mg Nifedipine (Procardia) 10 mg PO DAILY [facility] Last Admin: 05/01/17 10:30 Dose: 10 mg Pantoprazole Sodium (Protonix Ec Tab) 40 mg PO DAILY [facility] Last Admin: 05/01/17 10:30 Dose: 40 mg Potassium Chloride (Klor-Con 10) 10 meq PO BID [facility] Promethazine HCl/Dextromethorphan (Phenergan Dm Syrup) 5 ml PO Q6H PRN PRN Reason: Cough Last Admin: 05/01/17 00:50 Dose: 5 ml - Labs Labs: 05/01/17 07:23 05/01/17 07:23 PT 10.9 SECONDS (9.7-12.2) 04/23/17 17:14 INR 1.0 04/23/17 17:14 APTT 25 SECONDS (21-34) 04/23/17 17:14 Assessment and Plan (1) HTN (hypertension) Status: Chronic (2) Asthma exacerbation Status: Acute (3) COPD exacerbation Status: Acute (4) GERD (gastroesophageal reflux disease) Status: Chronic (5) Hyperlipidemia Status: Chronic
[2017-05-01] MEDS: guaiFENesin 100 mg/5 ml Syrup UD PO PRN (16:14)
[2017-05-01] MEDS: Potassium Chloride 10 mEq ER Tab PO SCH (17:09)
--- NOTE | 2017-05-01 17:20 | CP.PCM.PN ---
Subjective - Date & Time of Evaluation Date of Evaluation: 05/01/17 Time of Evaluation: 11:00 - Subjective Subjective: patient seen and examined Still complaining of nasal congestion, chest congestion, wheezing and shortness of breath Afebrile On antibiotics Objective - Vital Signs/Intake and Output Vital Signs (last 24 hours): Temp Pulse Resp BP Pulse Ox 98 F 86 20 138/81 95 05/01/17 16:00 05/01/17 16:00 05/01/17 16:00 05/01/17 16:00 05/01/17 16:00 Intake and Output: 05/01/17 05/01/17 06:59 18:59 Intake Total 870 400 Output Total 400 Balance 470 400 - Medications Medications: Current Medications Alprazolam (Xanax) 0.25 mg PO HS [facility] Stop: 05/04/17 22:01 Last Admin: 04/30/17 21:19 Dose: 0.25 mg Benzocaine/Menthol (Cepacol Sore Throat) 1 pravin MT QID [facility] Last Admin: 05/01/17 13:04 Dose: Not Given Budesonide (Pulmicort Respules) 0.5 mg INH RQ12 [facility] Last Admin: 05/01/17 07:09 Dose: 0.5 mg Guaifenesin (Robitussin) 100 mg PO Q4H PRN PRN Reason: Cough Last Admin: 05/01/17 16:14 Dose: 100 mg Hydrochlorothiazide (Microzide) 12.5 mg PO DAILY [facility] Last Admin: 05/01/17 10:30 Dose: 12.5 mg Tigecycline 50 mg/ Sodium (Chloride) 100 mls @ 100 mls/hr IVPB Q12H [facility] Last Admin: 05/01/17 17:08 Dose: 100 mls/hr Micafungin Sodium 100 mg/ (Sodium Chloride) 100 mls @ 100 mls/hr IV Q24H [facility] Last Admin: 05/01/17 00:30 Dose: 100 mls/hr Ipratropium [place] (Atrovent) 0.5 mg IH RQ6 [facility] Last Admin: 05/01/17 13:37 Dose: 0.5 mg Lactulose (Enulose) 20 gm PO DAILY [facility] Last Admin: 05/01/17 10:29 Dose: 20 gm Losartan Potassium (Cozaar) 100 mg PO DAILY [facility] Last Admin: 05/01/17 10:28 Dose: 100 mg Methylprednisolone (Solu-Medrol) 60 mg IV Q8H [facility] Last Admin: 05/01/17 12:21 Dose: 60 mg Nifedipine (Procardia) 10 mg PO DAILY [facility] Last Admin: 05/01/17 10:30 Dose: 10 mg Pantoprazole Sodium (Protonix Ec Tab) 40 mg PO DAILY [facility] Last Admin: 05/01/17 10:30 Dose: 40 mg Potassium Chloride (Klor-Con 10) 10 meq PO BID [facility] Promethazine HCl/Dextromethorphan (Phenergan Dm Syrup) 5 ml PO Q6H PRN PRN Reason: Cough Last Admin: 05/01/17 00:50 Dose: 5 ml - Labs Labs: 05/01/17 07:23 05/01/17 07:23 PT 10.9 SECONDS (9.7-12.2) 04/23/17 17:14 INR 1.0 04/23/17 17:14 APTT 25 SECONDS (21-34) 04/23/17 17:14 - Head Exam Head Exam: ATRAUMATIC, NORMOCEPHALIC - Eye Exam Eye Exam: Normal appearance - ENT Exam ENT Exam: Mucous Membranes Moist - Neck Exam Neck Exam: Normal Inspection - Respiratory Exam Respiratory Exam: Rhonchi, Wheezes - Cardiovascular Exam Cardiovascular Exam: REGULAR RHYTHM - GI/Abdominal Exam GI & Abdominal Exam: Soft, Normal Bowel Sounds Assessment and Plan (1) Asthma exacerbation Assessment & Plan: Asthma exacerbation secondary to upper respiratory tract infection continue IV steroids IV antibiotics Nebulizer treatment Status: Acute
--- NOTE | 2017-05-01 22:13 | CP.PCM.PN ---
Subjective - Date & Time of Evaluation Date of Evaluation: 05/01/17 Time of Evaluation: 22:13 - Subjective Subjective: CHIEF COMPLAINTS TODAY : afebrile DRY COUGH still wheezing Seen by ENT-s/p laryngoscopy-SUPRAGLOTTITIS ROS. HEENT : N. Resp : No ,pleuritic CP ,or hemoptysis Cardio : No anginal CP, PND, orthopnea, palpitation GI : No abd.pain, n/v ,diarrhea or GI bleeding . PANELBEATER : No headache, vertigo, focal deficit. Musculoskel : No joint swelling , Derm : No rash Psych : Normal affect. Ext : No swelling ,calf pain PE. Pt. is alert awake in no distress. V.S As noted in the chart Head ,ear nose,throat and eyes : Normal. Neck : Supple with normal carotids. Lungs: WAI RONCHI /EXPIRATORY WHEEZE. Heart : S1 & S2 normal with S4. No murmur. Abd : Soft non tender with normal bowel sounds. Neuro : Moves all ext. with no localized deficit. Ext : No edema with intact pulses.Non tender calves Derm : No rashes or decubitus ulcer. LABS/RADIOLOGY: IgM , IgG, and IGA -N iMMUNOGLOBULINS IGE - PENDING CHEST X-RAY MILD BY BASILAR ATELECTASIS. CARDIOMEGALY AND ECTATIC AORTA wbc 12.0 ESR 47, CREATININE 1.2/bun 53 LFTS-N PRO-CALCITONIN 0.05 LOW ASSESSMENT/PLAN : EXACERBATION OF BRONCHIAL ASTHMA BRONCHIOLITIS? VIRAL /FLUE R/O SUPERINFECTION ? FUNGAL HYPERTENSION. GERD. PLan. ASPERGILLUS ANTIBODIES AND ANTIGEN. ADD iv mYCAMINE 100 MG iv PIGGYBACK ONCE A DAY DAILY.05/01/17 ON iv tYGACIL 100 MG LOADING DOSE,04/26/17 fOLLOWED BY 50 MG EVERY 12 HOURLY IF TOLERATED. pLEASE INFUSE THE FIRST DOSE over 90 MINUTES. PATIENT DENIES ANY REACTION TO tYGACIL /OR mYCAMINE. pULMONARY F/U NOTED - CONTINUE NEBULIZER THERAPY. iv STEROIDS as per pmd. PATIENT STARTED ON SINGULAIR 10 MG BY MOUTH ONCE A DAY DAILY PER PULMONARY. OFF TAMIFLU 75 MG BY MOUTH TWICE A DAY X 5DAYS 04/25/17.-04/29/17 Objective - Vital Signs/Intake and Output Vital Signs (last 24 hours): Temp Pulse Resp BP Pulse Ox 98 F 86 20 138/81 95 05/01/17 16:00 05/01/17 16:00 05/01/17 16:00 05/01/17 16:00 05/01/17 16:00 Intake and Output: 05/01/17 05/02/17 18:59 06:59 Intake Total 400 Balance 400 - Medications Medications: Current Medications Alprazolam (Xanax) 0.25 mg PO HS [facility] Stop: 05/04/17 22:01 Last Admin: 04/30/17 21:19 Dose: 0.25 mg Benzocaine/Menthol (Cepacol Sore Throat) 1 pravin MT QID [facility] Last Admin: 05/01/17 21:33 Dose: Not Given Benzonatate (Tessalon Perles) 100 mg PO TID [facility] Last Admin: 05/01/17 18:42 Dose: 100 mg Budesonide (Pulmicort Respules) 0.5 mg INH RQ12 [facility] Last Admin: 05/01/17 19:29 Dose: 0.5 mg Guaifenesin (Robitussin) 100 mg PO Q4H PRN PRN Reason: Cough Last Admin: 05/01/17 16:14 Dose: 100 mg Hydrochlorothiazide (Microzide) 12.5 mg PO DAILY [facility] Last Admin: 05/01/17 10:30 Dose: 12.5 mg Tigecycline 50 mg/ Sodium (Chloride) 100 mls @ 100 mls/hr IVPB Q12H [facility] Last Admin: 05/01/17 17:08 Dose: 100 mls/hr Micafungin Sodium 100 mg/ (Sodium Chloride) 100 mls @ 100 mls/hr IV Q24H [facility] Last Admin: 05/01/17 00:30 Dose: 100 mls/hr Ipratropium [place] (Atrovent) 0.5 mg IH RQ6 [facility] Last Admin: 05/01/17 19:29 Dose: 0.5 mg Lactulose (Enulose) 20 gm PO DAILY [facility] Last Admin: 05/01/17 10:29 Dose: 20 gm Losartan Potassium (Cozaar) 100 mg PO DAILY [facility] Last Admin: 05/01/17 10:28 Dose: 100 mg Methylprednisolone (Solu-Medrol) 40 mg IV Q8H [facility] Last Admin: 05/01/17 18:42 Dose: 40 mg Nifedipine (Procardia) 10 mg PO DAILY [facility] Last Admin: 05/01/17 10:30 Dose: 10 mg Pantoprazole Sodium (Protonix Ec Tab) 40 mg PO DAILY [facility] Last Admin: 05/01/17 10:30 Dose: 40 mg Potassium Chloride (Klor-Con 10) 10 meq PO BID [facility] Last Admin: 05/01/17 17:09 Dose: 10 meq - Labs Labs: 05/01/17 07:23 05/01/17 07:23 PT 10.9 SECONDS (9.7-12.2) 04/23/17 17:14 INR 1.0 04/23/17 17:14 APTT 25 SECONDS (21-34) 04/23/17 17:14 Assessment and Plan (1) Asthma exacerbation Status: Acute (2) Bronchitis Status: Acute (3) HTN (hypertension) Status: Chronic (4) GERD (gastroesophageal reflux disease) Status: Chronic
[2017-05-02] MEDS: Micafungin 100 MG in Sodium Chloride 0.9% 100 ML IV SCH (00:07)
[2017-05-02] MEDS: MethylPREDNISolone 40 mg Vial IV SCH ×3 (01:37→17:57)
[2017-05-02] MEDS: Ipratropium 0.02% Inhal Soln (0.5 mg/2.5 ml) UD IH SCH ×4 (01:50→20:15)
[2017-05-02 07:17] LABS: HEMATOCRIT 42.1 % (34.0-47.0); LYMPH # 0.7 K/uL (1.0-4.3); LYMPH % 5.7 % (20.0-40.0); MEAN CELL VOLUME 96.3 fL (81.0-99.0); MEAN CORPUSCULAR HEMOGLOBIN 32.3 pg (27.0-31.0); MEAN CORPUSCULAR HGB CONC 33.6 g/dL (33.0-37.0); MEAN PLATELET VOLUME 8.6 fL (7.2-11.7); MONO # 0.6 K/uL (0.0-0.8); MONO % 5.4 % (0.0-10.0); PLATELET COUNT 335 K/uL (130-400); RED CELL DISTRIBUTION WIDTH 14.6 % (11.5-14.5); WHITE BLOOD COUNT 12.1 K/uL (4.8-10.8)
[2017-05-02] MEDS: Budesonide 0.5 mg/2 ml Inhal Susp UD INH SCH ×2 (07:58→20:15)
[2017-05-02 08:03] LABS: ALB/GLOB RATIO 1.4 (1.0-2.1); BILIRUBIN,TOTAL 0.9 mg/dL (0.2-1.3); CALCIUM 7.9 mg/dl (8.6-10.4); POTASSIUM 3.1 mmol/L (3.6-5.2); TOTAL PROTEIN 5.1 g/dL (6.3-8.3)
[2017-05-02 09:33] LABS: NEUTROPHIL 85 % (50-75); REACTIVE LYMPHOCYTES 1 % (0-0); TOTAL CELLS COUNTED 100
[2017-05-02] MEDS: Benzocaine/Menthol (Cepacol) Lozenge MT SCH ×3 (10:17→18:00)
[2017-05-02] MEDS: Potassium Chloride 10 mEq ER Tab PO SCH ×2 (10:18→17:56)
[2017-05-02] MEDS: Pantoprazole 40 mg EC Tab PO SCH (10:19)
[2017-05-02] MEDS: guaiFENesin 100 mg/5 ml Syrup UD PO PRN (12:54)
--- NOTE | 2017-05-02 13:27 | CP.PCM.PN ---
Subjective - Date & Time of Evaluation Date of Evaluation: 05/02/17 Time of Evaluation: 13:27 - Subjective Subjective: CHIEF COMPLAINTS TODAY : SOB/WHEEZING NOT MUCH IMPROVEMENT COUGH WITH WHITE EXP CXR NO INFILTRATE ROS. HEENT : N. Resp : No ,pleuritic CP ,or hemoptysis Cardio : No anginal CP, PND, orthopnea, palpitation GI : No abd.pain, n/v ,diarrhea or GI bleeding . 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 Musculoskel : No joint swelling , Derm : No rash Psych : Normal affect. Ext : No swelling ,calf pain PE. Pt. is alert awake in no distress. V.S As noted in the chart Head ,ear nose,throat and eyes : Normal. Neck : Supple with normal carotids. Lungs: WAI RONCHI Heart : S1 & S2 normal with S4. No murmur. Abd : Soft non tender with normal bowel sounds. Neuro : Moves all ext. with no localized deficit. Ext : No edema with intact pulses.Non tender calves Derm : No rashes or decubitus ulcer. LABS/RADIOLOGY: EVALUATED BY ENT : SUPRAGLOTITIS ASSESSMENT/PLAN : IV STEROIDS/AB AND NEB Objective - Vital Signs/Intake and Output Vital Signs (last 24 hours): Temp Pulse Resp BP Pulse Ox 97.8 F 86 20 163/96 H 97 05/02/17 08:00 05/02/17 08:00 05/02/17 08:00 05/02/17 08:00 05/02/17 08:00 - Medications Medications: Current Medications Alprazolam (Xanax) 0.25 mg PO HS [facility] Stop: 05/04/17 22:01 Last Admin: 05/01/17 22:56 Dose: 0.25 mg Benzocaine/Menthol (Cepacol Sore Throat) 1 pravin MT QID [facility] Last Admin: 05/02/17 10:17 Dose: Not Given Benzonatate (Tessalon Perles) 100 mg PO TID [facility] Last Admin: 05/02/17 10:20 Dose: 100 mg Budesonide (Pulmicort Respules) 0.5 mg INH RQ12 [facility] Last Admin: 05/02/17 07:58 Dose: 0.5 mg Guaifenesin (Robitussin) 100 mg PO Q4H PRN PRN Reason: Cough Last Admin: 05/02/17 12:54 Dose: 100 mg Heparin Sodium (Porcine) (Heparin) 5,000 units SC Q12H [facility] Last Admin: 05/02/17 12:55 Dose: 5,000 units Hydrochlorothiazide (Microzide) 12.5 mg PO DAILY [facility] Last Admin: 05/02/17 10:19 Dose: 12.5 mg Tigecycline 50 mg/ Sodium (Chloride) 100 mls @ 100 mls/hr IVPB Q12H [facility] Last Admin: 05/02/17 05:32 Dose: 100 mls/hr Micafungin Sodium 100 mg/ (Sodium Chloride) 100 mls @ 100 mls/hr IV Q24H [facility] Last Admin: 05/02/17 00:07 Dose: 100 mls/hr Ipratropium [place] (Atrovent) 0.5 mg IH RQ6 [facility] Last Admin: 05/02/17 07:58 Dose: 0.5 mg Lactulose (Enulose) 20 gm PO DAILY [facility] Last Admin: 05/02/17 10:18 Dose: 20 gm Losartan Potassium (Cozaar) 100 mg PO DAILY [facility] Last Admin: 05/02/17 10:17 Dose: 100 mg Methylprednisolone (Solu-Medrol) 40 mg IV Q8H [facility] Last Admin: 05/02/17 10:22 Dose: 40 mg Nifedipine (Procardia) 10 mg PO DAILY [facility] Last Admin: 05/02/17 10:19 Dose: 10 mg Pantoprazole Sodium (Protonix Ec Tab) 40 mg PO DAILY [facility] Last Admin: 05/02/17 10:19 Dose: 40 mg Potassium Chloride (Klor-Con 10) 10 meq PO BID [facility] Last Admin: 05/02/17 10:18 Dose: 10 meq - Labs Labs: 05/02/17 07:07 05/02/17 07:07 PT 10.9 SECONDS (9.7-12.2) 04/23/17 17:14 INR 1.0 04/23/17 17:14 APTT 25 SECONDS (21-34) 04/23/17 17:14 Assessment and Plan (1) HTN (hypertension) Status: Chronic (2) Asthma exacerbation Status: Acute (3) COPD exacerbation Status: Acute (4) GERD (gastroesophageal reflux disease) Status: Chronic (5) Hyperlipidemia Status: Chronic
[2017-05-02] MEDS ORDERED: Potassium Chloride 20 mEq/15 ml LIQ UD PO ONE (14:00)
--- NOTE | 2017-05-02 15:02 | CP.PCM.PN ---
Subjective - Date & Time of Evaluation Date of Evaluation: 05/02/17 Time of Evaluation: 10:30 - Subjective Subjective: Patient seen and examined Still complaining of shortness of breath, cough, nasal congestion Afebrile Chest pain on coughing Objective - Vital Signs/Intake and Output Vital Signs (last 24 hours): Temp Pulse Resp BP Pulse Ox 97.8 F 86 20 163/96 H 97 05/02/17 08:00 05/02/17 08:00 05/02/17 08:00 05/02/17 08:00 05/02/17 08:00 Intake and Output: 05/02/17 05/02/17 06:59 18:59 Intake Total 300 500 Output Total 500 Balance -200 500 - Medications Medications: Current Medications Alprazolam (Xanax) 0.25 mg PO HS PRN PRN Reason: Anxiety Stop: 05/04/17 22:01 Benzocaine/Menthol (Cepacol Sore Throat) 1 pravin MT QID [facility] Last Admin: 05/02/17 14:38 Dose: Not Given Benzonatate (Tessalon Perles) 100 mg PO TID [facility] Last Admin: 05/02/17 14:38 Dose: 100 mg Budesonide (Pulmicort Respules) 0.5 mg INH RQ12 [facility] Last Admin: 05/02/17 07:58 Dose: 0.5 mg Guaifenesin (Robitussin) 100 mg PO Q4H PRN PRN Reason: Cough Last Admin: 05/02/17 12:54 Dose: 100 mg Heparin Sodium (Porcine) (Heparin) 5,000 units SC Q12H [facility] Last Admin: 05/02/17 12:55 Dose: 5,000 units Hydrochlorothiazide (Microzide) 12.5 mg PO DAILY [facility] Last Admin: 05/02/17 10:19 Dose: 12.5 mg Tigecycline 50 mg/ Sodium (Chloride) 100 mls @ 100 mls/hr IVPB Q12H [facility] Last Admin: 05/02/17 05:32 Dose: 100 mls/hr Micafungin Sodium 100 mg/ (Sodium Chloride) 100 mls @ 100 mls/hr IV Q24H [facility] Last Admin: 05/02/17 00:07 Dose: 100 mls/hr Ipratropium [employer] (Atrovent) 0.5 mg IH RQ6 [facility] Last Admin: 05/02/17 14:01 Dose: 0.5 mg Lactulose (Enulose) 20 gm PO DAILY [facility] Last Admin: 05/02/17 10:18 Dose: 20 gm Losartan Potassium (Cozaar) 100 mg PO DAILY [facility] Last Admin: 05/02/17 10:17 Dose: 100 mg Methylprednisolone (Solu-Medrol) 40 mg IV Q8H [facility] Last Admin: 05/02/17 10:22 Dose: 40 mg Nifedipine (Procardia) 10 mg PO DAILY [facility] Last Admin: 05/02/17 10:19 Dose: 10 mg Pantoprazole Sodium (Protonix Ec Tab) 40 mg PO DAILY [facility] Last Admin: 05/02/17 10:19 Dose: 40 mg Potassium Chloride (Klor-Con 10) 10 meq PO BID [facility] Last Admin: 05/02/17 10:18 Dose: 10 meq - Labs Labs: 05/02/17 07:07 05/02/17 07:07 PT 10.9 SECONDS (9.7-12.2) 04/23/17 17:14 INR 1.0 04/23/17 17:14 APTT 25 SECONDS (21-34) 04/23/17 17:14 Assessment and Plan (1) Asthma exacerbation Status: Acute
--- NOTE | 2017-05-02 18:44 | CT ---
PROCEDURE: CT Chest without contrast HISTORY: Persistent cough and dyspnea. Relevant surgical history: Esophagus remaining gastric pull through. COMPARISON: 04/05/2017 CT thorax TECHNIQUE: Contiguous axial images were obtained through the chest without intravenous contrast enhancement. Sagittal and coronal reconstructions were performed. Radiation dose (DLP): mGy-cm. This CT exam was performed using one or more of the following dose reduction techniques: Automated exposure control, adjustment of the mA and/or kV according to patient size, and/or use of iterative reconstruction technique. FINDINGS: LUNGS: Clear lungs. Visualized airway clear. MEDIASTINUM: Unremarkable thoracic aorta. No aneurysm. Normal sized heart. Main pulmonary artery unremarkable. No vascular congestion. No lymphadenopathy. PLEURA: No pleural fluid. No pneumothorax. BONES: No fracture. No destructive lesion. UPPER ABDOMEN: Grossly unremarkable. 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 IMPRESSION: No active pulmonary disease. Stable postoperative changes. No significant interval change compared to the prior study.
--- NOTE | 2017-05-02 20:43 | CP.PCM.PN ---
Subjective - Date & Time of Evaluation Date of Evaluation: 05/02/17 Time of Evaluation: 20:42 - Subjective Subjective: CHIEF COMPLAINTS TODAY : afebrile COUGH +ve still wheezing. no expectorant. pt sent for CT CHEST BY PULMONARY ROS. HEENT : N. Resp : No ,pleuritic CP ,or hemoptysis Cardio : No anginal CP, PND, orthopnea, palpitation GI : No abd.pain, n/v ,diarrhea or GI bleeding . 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 Musculoskel : No joint swelling , Derm : No rash Psych : Normal affect. Ext : No swelling ,calf pain PE. Pt. is alert awake in no distress. V.S As noted in the chart Head ,ear nose,throat and eyes : Normal. Neck : Supple with normal carotids. Lungs: B/L EXPIRATORY WHEEZE. Heart : S1 & S2 normal with S4. No murmur. Abd : Soft non tender with normal bowel sounds. Neuro : Moves all ext. with no localized deficit. Ext : No edema with intact pulses.Non tender calves Derm : No rashes or decubitus ulcer. LABS/RADIOLOGY: IgM , IgG, and IGA , -N iMMUNOGLOBULINS IGE - N CHEST X-RAY MILD BY BASILAR ATELECTASIS. CARDIOMEGALY AND ECTATIC AORTA ASSESSMENT/PLAN : EXACERBATION OF BRONCHIAL ASTHMA BRONCHIOLITIS? VIRAL /FLUE R/O SUPERINFECTION ? FUNGAL HYPERTENSION. GERD. PLan. ASPERGILLUS ANTIBODIES AND ANTIGEN.-P ADD iv mYCAMINE 100 MG iv PIGGYBACK ONCE A DAY DAILY.05/01/17-DAY 2 ON iv tYGACIL 100 MG LOADING DOSE,04/26/17 fOLLOWED BY 50 MG EVERY 12 HOURLY IF TOLERATED. pLEASE INFUSE THE FIRST DOSE over 90 MINUTES.-DAY7 PATIENT DENIES ANY REACTION TO tYGACIL /OR mYCAMINE. pULMONARY F/U NOTED - CONTINUE NEBULIZER THERAPY. iv STEROIDS as per pmd. PATIENT STARTED ON SINGULAIR 10 MG BY MOUTH ONCE A DAY DAILY PER PULMONARY. OFF TAMIFLU 75 MG BY MOUTH TWICE A DAY X 5DAYS 04/25/17.-04/29/17. F/U CT CHEST. Objective - Vital Signs/Intake and Output Vital Signs (last 24 hours): Temp Pulse Resp BP Pulse Ox 97.7 F 95 H 20 146/83 95 05/02/17 16:00 05/02/17 16:00 05/02/17 16:00 05/02/17 16:00 05/02/17 16:00 Intake and Output: 05/02/17 05/03/17 18:59 06:59 Intake Total 500 Balance 500 - Medications Medications: Current Medications Alprazolam (Xanax) 0.25 mg PO HS PRN PRN Reason: Anxiety Stop: 05/04/17 22:01 Benzocaine/Menthol (Cepacol Sore Throat) 1 pravin MT QID [facility] Last Admin: 05/02/17 14:38 Dose: Not Given Benzonatate (Tessalon Perles) 100 mg PO TID [facility] Last Admin: 05/02/17 17:56 Dose: 100 mg Budesonide (Pulmicort Respules) 0.5 mg INH RQ12 [facility] Last Admin: 05/02/17 07:58 Dose: 0.5 mg Guaifenesin (Robitussin) 100 mg PO Q4H PRN PRN Reason: Cough Last Admin: 05/02/17 12:54 Dose: 100 mg Heparin Sodium (Porcine) (Heparin) 5,000 units SC Q12H [facility] Last Admin: 05/02/17 12:55 Dose: 5,000 units Hydrochlorothiazide (Microzide) 12.5 mg PO DAILY [facility] Last Admin: 05/02/17 10:19 Dose: 12.5 mg Tigecycline 50 mg/ Sodium (Chloride) 100 mls @ 100 mls/hr IVPB Q12H [facility] Last Admin: 05/02/17 17:56 Dose: 100 mls/hr Micafungin Sodium 100 mg/ (Sodium Chloride) 100 mls @ 100 mls/hr IV Q24H [facility] Last Admin: 05/02/17 00:07 Dose: 100 mls/hr Ipratropium [place] (Atrovent) 0.5 mg IH RQ6 [facility] Last Admin: 05/02/17 14:01 Dose: 0.5 mg Lactulose (Enulose) 20 gm PO DAILY [facility] Last Admin: 05/02/17 10:18 Dose: 20 gm Losartan Potassium (Cozaar) 100 mg PO DAILY [facility] Last Admin: 05/02/17 10:17 Dose: 100 mg Methylprednisolone (Solu-Medrol) 40 mg IV Q8H [facility] Last Admin: 05/02/17 17:57 Dose: 40 mg Nifedipine (Procardia) 10 mg PO DAILY [facility] Last Admin: 05/02/17 10:19 Dose: 10 mg Pantoprazole Sodium (Protonix Ec Tab) 40 mg PO DAILY [facility] Last Admin: 05/02/17 10:19 Dose: 40 mg Potassium Chloride (Klor-Con 10) 10 meq PO BID [facility] Last Admin: 05/02/17 17:56 Dose: 10 meq - Labs Labs: 05/02/17 07:07 05/02/17 07:07 PT 10.9 SECONDS (9.7-12.2) 04/23/17 17:14 INR 1.0 04/23/17 17:14 APTT 25 SECONDS (21-34) 04/23/17 17:14 Assessment and Plan (1) Asthma exacerbation Status: Acute (2) Bronchitis Status: Acute (3) HTN (hypertension) Status: Chronic (4) GERD (gastroesophageal reflux disease) Status: Chronic
[2017-05-03] MEDS: Micafungin 100 MG in Sodium Chloride 0.9% 100 ML IV SCH (00:02)
[2017-05-03] MEDS: MethylPREDNISolone 40 mg Vial IV SCH ×3 (01:34→17:02)
[2017-05-03] MEDS: Ipratropium 0.02% Inhal Soln (0.5 mg/2.5 ml) UD IH SCH ×2 (01:56→07:55)
[2017-05-03] MEDS: Budesonide 0.5 mg/2 ml Inhal Susp UD INH SCH ×2 (07:55→20:29)
[2017-05-03 08:20] LABS: HEMATOCRIT 44.6 % (34.0-47.0); LYMPH # 0.5 K/uL (1.0-4.3); LYMPH % 2.6 % (20.0-40.0); MEAN CELL VOLUME 95.6 fL (81.0-99.0); MEAN CORPUSCULAR HEMOGLOBIN 31.1 pg (27.0-31.0); MEAN CORPUSCULAR HGB CONC 32.5 g/dL (33.0-37.0); MEAN PLATELET VOLUME 8.8 fL (7.2-11.7); MONO % 10.1 % (0.0-10.0); PLATELET COUNT 375 K/uL (130-400); RED CELL DISTRIBUTION WIDTH 14.8 % (11.5-14.5); WHITE BLOOD COUNT 19.4 K/uL (4.8-10.8)
[2017-05-03 08:31] LABS: ALB/GLOB RATIO 1.4 (1.0-2.1); BILIRUBIN,TOTAL 1.1 mg/dL (0.2-1.3); CALCIUM 8.1 mg/dl (8.6-10.4); POTASSIUM 3.2 mmol/L (3.6-5.2); TOTAL PROTEIN 5.4 g/dL (6.3-8.3)
[2017-05-03 09:52] LABS: NEUTROPHIL 84 % (50-75); TOTAL CELLS COUNTED 100
[2017-05-03] MEDS: Potassium Chloride 10 mEq ER Tab PO SCH ×2 (10:47→17:23)
[2017-05-03] MEDS: Benzocaine/Menthol (Cepacol) Lozenge MT SCH ×4 (10:48→22:32)
[2017-05-03] MEDS: Pantoprazole 40 mg EC Tab PO SCH (10:48)
[2017-05-03] MEDS ORDERED: Albuterol-Ipratrop 3 mg / 0.5 (3 ml) UD INH STA (10:58)
--- NOTE | 2017-05-03 13:37 | CP.PCM.PN ---
Subjective - Date & Time of Evaluation Date of Evaluation: 05/03/17 Time of Evaluation: 13:36 - Subjective Subjective: CHIEF COMPLAINTS TODAY : SOB/WHEEZING NOT MUCH IMPROVEMENT COUGH WITH WHITE EXP CXR NO INFILTRATE ROS. HEENT : N. Resp : No ,pleuritic CP ,or hemoptysis Cardio : No anginal CP, PND, orthopnea, palpitation GI : No abd.pain, n/v ,diarrhea or GI bleeding . [employer] : No headache, vertigo, focal deficit. Musculoskel : No joint swelling , Derm : No rash Psych : Normal affect. Ext : No swelling ,calf pain PE. Pt. is alert awake in no distress. V.S As noted in the chart Head ,ear nose,throat and eyes : Normal. Neck : Supple with normal carotids. Lungs: WAI RONCHI Heart : S1 & S2 normal with S4. No murmur. Abd : Soft non tender with normal bowel sounds. Neuro : Moves all ext. with no localized deficit. Ext : No edema with intact pulses.Non tender calves Derm : No rashes or decubitus ulcer. LABS/RADIOLOGY: EVALUATED BY ENT : SUPRAGLOTITIS ASSESSMENT/PLAN : IV STEROIDS/AB AND NEB abg Objective - Vital Signs/Intake and Output Vital Signs (last 24 hours): Temp Pulse Resp BP Pulse Ox 98.7 F 99 H 20 150/96 H 96 05/03/17 08:20 05/03/17 08:20 05/03/17 08:20 05/03/17 08:20 05/03/17 08:20 - Medications Medications: Current Medications Albuterol/Ipratropium (Duoneb 3 Mg/0.5 Mg (3 Ml) Ud) 3 ml INH RQ6 [facility] Benzocaine/Menthol (Cepacol Sore Throat) 1 pravin MT QID [facility] Last Admin: 05/03/17 10:48 Dose: Not Given Benzonatate (Tessalon Perles) 100 mg PO TID [facility] Last Admin: 05/03/17 10:47 Dose: 100 mg Budesonide (Pulmicort Respules) 0.5 mg INH RQ12 [facility] Last Admin: 05/03/17 07:55 Dose: 0.5 mg Guaifenesin (Robitussin) 100 mg PO Q4H PRN PRN Reason: Cough Last Admin: 05/02/17 12:54 Dose: 100 mg Heparin Sodium (Porcine) (Heparin) 5,000 units SC Q12H [facility] Last Admin: 05/03/17 00:01 Dose: 5,000 units Hydrochlorothiazide (Microzide) 12.5 mg PO DAILY [facility] Last Admin: 05/03/17 10:48 Dose: 12.5 mg Tigecycline 50 mg/ Sodium (Chloride) 100 mls @ 100 mls/hr IVPB Q12H [facility] Last Admin: 05/03/17 05:07 Dose: 100 mls/hr Micafungin Sodium 100 mg/ (Sodium Chloride) 100 mls @ 100 mls/hr IV Q24H [facility] Last Admin: 05/03/17 00:02 Dose: 100 mls/hr Potassium Chloride (Potassium Chloride 20 Meq/100 Ml) 20 meq in 100 mls @ 50 mls/hr IVPB ONCE ONE Stop: 05/03/17 13:59 Lactulose (Enulose) 20 gm PO DAILY [facility] Last Admin: 05/03/17 10:47 Dose: Not Given Losartan Potassium (Cozaar) 100 mg PO DAILY [facility] Last Admin: 05/03/17 10:47 Dose: 100 mg Methylprednisolone (Solu-Medrol) 40 mg IV Q8H [facility] Last Admin: 05/03/17 10:12 Dose: 40 mg Nifedipine (Procardia) 10 mg PO DAILY [facility] Last Admin: 05/03/17 10:47 Dose: 10 mg Pantoprazole Sodium (Protonix Ec Tab) 40 mg PO DAILY [facility] Last Admin: 05/03/17 10:48 Dose: 40 mg Potassium Chloride (Klor-Con 10) 10 meq PO BID [facility] Last Admin: 05/03/17 10:47 Dose: 10 meq - Labs Labs: 05/03/17 08:08 05/03/17 08:08 PT 10.9 SECONDS (9.7-12.2) 04/23/17 17:14 INR 1.0 04/23/17 17:14 APTT 25 SECONDS (21-34) 04/23/17 17:14 Assessment and Plan (1) HTN (hypertension) Status: Chronic (2) Asthma exacerbation Status: Acute (3) COPD exacerbation Status: Acute (4) GERD (gastroesophageal reflux disease) Status: Chronic (5) Hyperlipidemia Status: Chronic
[2017-05-03] MEDS: guaiFENesin 100 mg/5 ml Syrup UD PO PRN (13:52)
[2017-05-03] MEDS: Albuterol-Ipratrop 3 mg / 0.5 (3 ml) UD INH SCH ×2 (14:02→20:29)
[2017-05-03 14:20] LABS: ABG ALLEN TEST POS; ARTERIAL BLOOD HGB O2 SAT 85.7 % (95.0-98.0); CARBOXYHEMOGLOBIN 1.6 % (0.5-1.5); DRAW SITE RR; HHB 11.5 % (0.0-5.0); METHEMOGLOBIN 1.2 % (0.0-3.0)
--- NOTE | 2017-05-03 18:54 | CP.PCM.PN ---
Subjective - Date & Time of Evaluation Date of Evaluation: 05/03/17 Time of Evaluation: 18:00 - Subjective Subjective: complaining of shortness of breath and cough Desaturating Denies fever chills, denies chest pain Objective - Vital Signs/Intake and Output Vital Signs (last 24 hours): Temp Pulse Resp BP Pulse Ox 98.2 F 106 H 20 125/83 90 L 05/03/17 16:00 05/03/17 16:00 05/03/17 16:00 05/03/17 16:00 05/03/17 16:00 Intake and Output: 05/03/17 05/03/17 06:59 18:59 Intake Total 400 500 Output Total 400 Balance 0 500 - Medications Medications: Current Medications Albuterol/Ipratropium (Duoneb 3 Mg/0.5 Mg (3 Ml) Ud) 3 ml INH RQ6 [facility] Last Admin: 05/03/17 14:02 Dose: 3 ml Benzocaine/Menthol (Cepacol Sore Throat) 1 pravin MT QID [facility] Last Admin: 05/03/17 17:29 Dose: Not Given Benzonatate (Tessalon Perles) 100 mg PO TID [facility] Last Admin: 05/03/17 17:24 Dose: 100 mg Budesonide (Pulmicort Respules) 0.5 mg INH RQ12 [facility] Last Admin: 05/03/17 07:55 Dose: 0.5 mg Guaifenesin (Robitussin) 100 mg PO Q4H PRN PRN Reason: Cough Last Admin: 05/03/17 13:52 Dose: 100 mg Heparin Sodium (Porcine) (Heparin) 5,000 units SC Q8 [facility] Hydrochlorothiazide (Microzide) 12.5 mg PO DAILY [facility] Last Admin: 05/03/17 10:48 Dose: 12.5 mg Tigecycline 50 mg/ Sodium (Chloride) 100 mls @ 100 mls/hr IVPB Q12H [facility] Last Admin: 05/03/17 17:35 Dose: 100 mls/hr Micafungin Sodium 100 mg/ (Sodium Chloride) 100 mls @ 100 mls/hr IV Q24H [facility] Last Admin: 05/03/17 00:02 Dose: 100 mls/hr Lactulose (Enulose) 20 gm PO DAILY [facility] Last Admin: 05/03/17 10:47 Dose: Not Given Losartan Potassium (Cozaar) 100 mg PO DAILY [facility] Last Admin: 05/03/17 10:47 Dose: 100 mg Methylprednisolone (Solu-Medrol) 40 mg IV Q8H [facility] Last Admin: 05/03/17 17:02 Dose: 40 mg Nifedipine (Procardia) 10 mg PO DAILY [facility] Last Admin: 05/03/17 10:47 Dose: 10 mg Pantoprazole Sodium (Protonix Ec Tab) 40 mg PO DAILY [facility] Last Admin: 05/03/17 10:48 Dose: 40 mg Potassium Chloride (Klor-Con 10) 10 meq PO BID [facility] Last Admin: 05/03/17 17:23 Dose: 10 meq - Labs Labs: 05/03/17 08:08 05/03/17 08:08 PT 10.9 SECONDS (9.7-12.2) 04/23/17 17:14 INR 1.0 04/23/17 17:14 APTT 25 SECONDS (21-34) 04/23/17 17:14 - Head Exam Head Exam: ATRAUMATIC, NORMOCEPHALIC - ENT Exam ENT Exam: Mucous Membranes Moist - Respiratory Exam Respiratory Exam: Rhonchi, Wheezes - Cardiovascular Exam Cardiovascular Exam: REGULAR RHYTHM - GI/Abdominal Exam GI & Abdominal Exam: Soft Assessment and Plan (1) Asthma exacerbation Assessment & Plan: Continue IV steroids ICU observation High flow oxygen Consider VQ scan Continue antibiotics per ID Nebulizer treatment Status: Acute
--- NOTE | 2017-05-03 21:40 | CP.CCUPN ---
CCU Subjective - Physician Review Events Since Last Encounter (Free Text): 05/04/17 03:03 The Patient was seen and examined at the bedside, Medical records reviewed, and management issues were discussed and formulated with the house staff. Mrs Layla Wu is 81 year old female with a significant history of HTN, HLD, Artheritis and severe asthma who was admitted here on 04/23/17 for worsening shortness of breath precipitated by nasal congestion and dry cough. She was using her home medications - Breo and Ventolin without significant improvement. Patient was initially admitted to medical floor for severe asthma exacerbations , However today, patient became increasingly short of breath and was found to be wheezing with an O2 sat of 86% on 4L nasal cannula. Patient was switched to BIPAP and PT was complaining of nausea. Patient is currently on solumedrol and duonebs. CCU Objective - Vital Signs / Intake & Output Vital Signs (Last 4 hours): Vital Signs Temp Pulse Resp BP Pulse Ox 05/03/17 20:25 98.3 F 110 H 22 123/83 87 L 05/03/17 19:38 98.3 F 105 H 21 160/92 H 92 L Intake and Output (Last 8hrs): Intake & Output 05/03/17 05/03/17 05/03/17 06:59 14:59 22:59 Intake Total 500 Balance 500 Intake: Intake, IV Amount 100 Right Hand 100 Oral 400 Other: # Voids Urine, Voided 2 # Bowel Movements 1 - Physical Exam Physical Exam Limitations: Positive for: Clinical Condition Head: Positive for: Atraumatic, Normocephalic Pupils: Positive for: PERRL Extroacular Muscles: Positive for: EOMI Conjunctiva: Positive for: Normal Mouth: Positive for: Moist Mucous Membranes Neck: Positive for: Normal Range of Motion, Trachea Midline Respiratory/Chest: Positive for: Respiratory Distress, Wheezes, Decreased Breath Sounds. Negative for: Clear to Auscultation, Good Air Exchange, Accessory Muscle Use Cardiovascular: Positive for: Regular Rate and Rhythm, Normal S1, S2. Negative for: Murmurs Abdomen: Positive for: Normal Bowel Sounds. Negative for: Tenderness, Distention, Peritoneal Signs Upper Extremity: Positive for: Normal Inspection, Normal ROM, NORMAL PULSES, Capillary Refill < 2s. Negative for: Cyanosis, Edema Lower Extremity: Positive for: Normal Inspection, NORMAL PULSES. Negative for: Edema, CALF TENDERNESS Neurological: Positive for: GCS=15, CN II-XII Intact, Speech Normal, Motor Func Grossly Intact, Normal Sensory Function Skin: Positive for: Warm, Dry. Negative for: Rashes Psychiatric: Positive for: Alert, Oriented x 3, Normal Insight, Normal Concentration - Medications Active Medications: Active Medications Generic Name Dose Route Start Last Admin Trade Name Freq PRN Reason Stop Dose Admin Albuterol/Ipratropium 3 ml 05/03/17 14:00 05/03/17 20:29 Duoneb 3 Mg/0.5 Mg (3 Ml) Ud INH 3 ml RQ6 [facility] Administration Benzocaine/Menthol 1 pravin 04/27/17 18:00 05/03/17 17:29 Cepacol Sore Throat MT Not Given QID [facility] Benzonatate 100 mg 05/01/17 18:00 05/03/17 17:24 Tessalon Perles PO 100 mg TID [facility] Administration Budesonide 0.5 mg 04/26/17 20:00 05/03/17 20:29 Pulmicort Respules INH 0.5 mg RQ12 [facility] Administration Guaifenesin 100 mg 04/27/17 15:28 05/03/17 13:52 Robitussin PO 100 mg Q4H PRN Administration Cough Heparin Sodium (Porcine) 5,000 units 05/03/17 22:00 Heparin SC Q8 [facility] Hydrochlorothiazide 12.5 mg 04/24/17 10:00 05/03/17 10:48 Microzide PO 12.5 mg DAILY [facility] Administration Tigecycline 50 mg/ Sodium 100 mls @ 100 mls/hr 04/27/17 18:00 05/03/17 17:35 Chloride IVPB 100 mls/hr Q12H [facility] Administration Micafungin Sodium 100 mg/ 100 mls @ 100 mls/hr 04/30/17 23:45 05/03/17 00:02 Sodium Chloride IV 100 mls/hr Q24H [facility] Administration Lactulose 20 gm 04/30/17 10:00 05/03/17 10:47 Enulose PO Not Given DAILY [facility] Losartan Potassium 100 mg 04/27/17 10:00 05/03/17 10:47 Cozaar PO 100 mg DAILY [facility] Administration Methylprednisolone 40 mg 05/01/17 17:23 05/03/17 17:02 Solu-Medrol IV 40 mg Q8H [facility] Administration Nifedipine 10 mg 04/28/17 16:00 05/03/17 10:47 Procardia PO 10 mg DAILY [facility] Administration Pantoprazole Sodium 40 mg 04/24/17 10:00 05/03/17 10:48 Protonix Ec Tab PO 40 mg DAILY [facility] Administration Potassium Chloride 10 meq 05/01/17 18:00 05/03/17 17:23 Klor-Con 10 PO 10 meq BID [facility] Administration - Patient Studies Lab Studies: Microbiology Studies 05/03/17 Unknown Gram Stain - Final Sputum Lab Studies 05/03/17 05/03/17 05/03/17 Range/Units 17:00 14:15 08:08 WBC (4.8-10.8) K/uL RBC (3.80-5.20) Mil/uL Hgb (11.0-16.0) g/dL Hct (34.0-47.0) % MCV (81.0-99.0) fL MCH (27.0-31.0) pg MCHC (33.0-37.0) g/dL RDW (11.5-14.5) % Plt Count (130-400) K/uL MPV (7.2-11.7) fL Neut % (Auto) (50.0-75.0) % Lymph % (Auto) (20.0-40.0) % Brewster % (Auto) (0.0-10.0) % Eos % (Auto) (0.0-4.0) % Baso % (Auto) (0.0-2.0) % Neut # (1.8-7.0) K/uL Lymph # (1.0-4.3) K/uL Brewster # (0.0-0.8) K/uL Eos # (0.0-0.7) K/uL Baso # (0.0-0.2) K/uL Neutrophils % (Manual) (50-75) % Band Neutrophils % (0-2) % Lymphocytes % (Manual) (20-40) % Monocytes % (Manual) (0-10) % Platelet Estimate (NORMAL) Macrocytosis (manual) D-Dimer, Quantitative 373 H (0-243) ng/mlDDU Puncture Site Rr pCO2 35 (35-45) mm/Hg pO2 49 L (80-100) mm/Hg HCO3 29.1 H (21-28) mmol/L ABG pH 7.52 H (7.35-7.45) ABG Total CO2 29.7 H (22-28) mmol/L ABG O2 Saturation 88.2 L (95-98) % ABG Base Excess 5.8 H (-2.0-3.0) mmol/L ABG Hemoglobin 15.0 (11.7-17.4) g/dL ABG Carboxyhemoglobin 1.6 H (0.5-1.5) % POC ABG HHb (Measured) 11.5 H (0.0-5.0) % ABG Methemoglobin 1.2 (0.0-3.0) % Issa Test Pos A-a O2 Difference 171.0 mm/Hg Respiratory Index 3.5 Hgb O2 Saturation 85.7 L (95.0-98.0) % Liter Flow 4.0 FiO2 37.0 % Sodium 139 (132-148) mmol/L Potassium 3.2 L (3.6-5.2) mmol/L Chloride 100 (98-107) mmol/L Carbon Dioxide 30 (22-30) mmol/L Anion Gap 12 (10-20) BUN 61 H (7-17) mg/dL Creatinine 1.3 H (0.7-1.2) mg/dL Est GFR ( Amer) 48 Est GFR (Non-Af Amer) 40 Random Glucose 230 H (65-105) mg/dL Calcium 8.1 L (8.6-10.4) mg/dl Total Bilirubin 1.1 (0.2-1.3) mg/dL AST 31 (14-36) U/L ALT 82 H D (9-52) U/L Alkaline Phosphatase 83 (38-126) U/L NT-Pro-B Natriuret Pep 776 (0-900) pg/mL Total Protein 5.4 L (6.3-8.3) g/dL Albumin 3.2 L (3.5-5.0) g/dL Globulin 2.2 (2.2-3.9) gm/dL Albumin/Globulin Ratio 1.4 (1.0-2.1) 05/03/17 Range/Units 08:08 WBC 19.4 H D (4.8-10.8) K/uL RBC 4.67 (3.80-5.20) Mil/uL Hgb 14.5 (11.0-16.0) g/dL Hct 44.6 (34.0-47.0) % MCV 95.6 (81.0-99.0) fL MCH 31.1 H (27.0-31.0) pg MCHC 32.5 L (33.0-37.0) g/dL RDW 14.8 H (11.5-14.5) % Plt Count 375 (130-400) K/uL MPV 8.8 (7.2-11.7) fL Neut % (Auto) 87.3 H (50.0-75.0) % Lymph % (Auto) 2.6 L (20.0-40.0) % Brewster % (Auto) 10.1 H (0.0-10.0) % Eos % (Auto) 0.0 (0.0-4.0) % Baso % (Auto) 0.0 (0.0-2.0) % Neut # 16.9 H (1.8-7.0) K/uL Lymph # 0.5 L (1.0-4.3) K/uL Brewster # 2.0 H (0.0-0.8) K/uL Eos # 0.0 (0.0-0.7) K/uL Baso # 0.0 (0.0-0.2) K/uL Neutrophils % (Manual) 84 H (50-75) % Band Neutrophils % 6 H (0-2) % Lymphocytes % (Manual) 1 L (20-40) % Monocytes % (Manual) 9 (0-10) % Platelet Estimate Normal (NORMAL) Macrocytosis (manual) Slight D-Dimer, Quantitative (0-243) ng/mlDDU Puncture Site pCO2 (35-45) mm/Hg pO2 (80-100) mm/Hg HCO3 (21-28) mmol/L ABG pH (7.35-7.45) ABG Total CO2 (22-28) mmol/L ABG O2 Saturation (95-98) % ABG Base Excess (-2.0-3.0) mmol/L ABG Hemoglobin (11.7-17.4) g/dL ABG Carboxyhemoglobin (0.5-1.5) % POC ABG HHb (Measured) (0.0-5.0) % ABG Methemoglobin (0.0-3.0) % Issa Test A-a O2 Difference mm/Hg Respiratory Index Hgb O2 Saturation (95.0-98.0) % Liter Flow FiO2 % Sodium (132-148) mmol/L Potassium (3.6-5.2) mmol/L Chloride (98-107) mmol/L Carbon Dioxide (22-30) mmol/L Anion Gap (10-20) BUN (7-17) mg/dL Creatinine (0.7-1.2) mg/dL Est GFR ( Amer) Est GFR (Non-Af Amer) Random Glucose (65-105) mg/dL Calcium (8.6-10.4) mg/dl Total Bilirubin (0.2-1.3) mg/dL AST (14-36) U/L ALT (9-52) U/L Alkaline Phosphatase (38-126) U/L NT-Pro-B Natriuret Pep (0-900) pg/mL Total Protein (6.3-8.3) g/dL Albumin (3.5-5.0) g/dL Globulin (2.2-3.9) gm/dL Albumin/Globulin Ratio (1.0-2.1) Laboratory Results - last 24 hr 05/03/17 05/03/17 05/03/17 08:08 08:08 14:15 WBC 19.4 H D RBC 4.67 Hgb 14.5 Hct 44.6 MCV 95.6 MCH 31.1 H MCHC 32.5 L RDW 14.8 H Plt Count 375 MPV 8.8 Neut % (Auto) 87.3 H Lymph % (Auto) 2.6 L Brewster % (Auto) 10.1 H Eos % (Auto) 0.0 Baso % (Auto) 0.0 Neut # 16.9 H Lymph # 0.5 L Brewster # 2.0 H Eos # 0.0 Baso # 0.0 Neutrophils % (Manual) 84 H Band Neutrophils % 6 H Lymphocytes % (Manual) 1 L Monocytes % (Manual) 9 Platelet Estimate Normal Macrocytosis (manual) Slight D-Dimer, Quantitative Puncture Site Rr pCO2 35 pO2 49 L HCO3 29.1 H ABG pH 7.52 H ABG Total CO2 29.7 H ABG O2 Saturation 88.2 L ABG Base Excess 5.8 H ABG Hemoglobin 15.0 ABG Carboxyhemoglobin 1.6 H POC ABG HHb (Measured) 11.5 H ABG Methemoglobin 1.2 Issa Test Pos A-a O2 Difference 171.0 Respiratory Index 3.5 Hgb O2 Saturation 85.7 L Liter Flow 4.0 FiO2 37.0 Sodium 139 Potassium 3.2 L Chloride 100 Carbon Dioxide 30 Anion Gap 12 BUN 61 H Creatinine 1.3 H Est GFR ( Amer) 48 Est GFR (Non-Af Amer) 40 Random Glucose 230 H Calcium 8.1 L Total Bilirubin 1.1 AST 31 ALT 82 H D Alkaline Phosphatase 83 NT-Pro-B Natriuret Pep 776 Total Protein 5.4 L Albumin 3.2 L Globulin 2.2 Albumin/Globulin Ratio 1.4 05/03/17 17:00 WBC RBC Hgb Hct MCV MCH MCHC RDW Plt Count MPV Neut % (Auto) Lymph % (Auto) Brewster % (Auto) Eos % (Auto) Baso % (Auto) Neut # Lymph # Brewster # Eos # Baso # Neutrophils % (Manual) Band Neutrophils % Lymphocytes % (Manual) Monocytes % (Manual) Platelet Estimate Macrocytosis (manual) D-Dimer, Quantitative 373 H Puncture Site pCO2 pO2 HCO3 ABG pH ABG Total CO2 ABG O2 Saturation ABG Base Excess ABG Hemoglobin ABG Carboxyhemoglobin POC ABG HHb (Measured) ABG Methemoglobin Issa Test A-a O2 Difference Respiratory Index Hgb O2 Saturation Liter Flow FiO2 Sodium Potassium Chloride Carbon Dioxide Anion Gap BUN Creatinine Est GFR ( Amer) Est GFR (Non-Af Amer) Random Glucose Calcium Total Bilirubin AST ALT Alkaline Phosphatase NT-Pro-B Natriuret Pep Total Protein Albumin Globulin Albumin/Globulin Ratio Review of Systems - Cardiovascular Cardiovascular: absent: Chest Pain, Chest Pain at Rest, Chest Pain with Activity , Claudication, Diaphoresis - Respiratory Respiratory: Cough, Dyspnea, Dyspnea on Exertion, Wheezing. absent: Hemoptysis , Snoring, Stridor Critical Care Progress Note - Extremities/Vascular Does the Patient have a Central Venous Catheter?: No Does the Patient need a Central Venous Catheter?: No Does the Patient have a Monzon Catheter?: No Does the Patient need a Monzon Catheter?: No - Nutrition Nutrition: Nutrition Category Date Time Status Heart Healthy Diet [DIET] Diets 04/24/17 Breakfast Active Assessment/Plan (1) Asthma exacerbation Current Visit: Yes Status: Acute (2) HTN (hypertension) Current Visit: Yes Status: Chronic Comment: Continue IV solumedrol Continue duonebs with Alternation nasal cannula (4L) and BIPAP. Transfer to ICU for close observation VQ scan Continue antibiotics per ID (3) GERD (gastroesophageal reflux disease) Current Visit: No Status: Chronic (4) Prophylactic measure Current Visit: No Status: Acute
--- NOTE | 2017-05-03 22:56 | CP.PCM.PN ---
Subjective - Date & Time of Evaluation Date of Evaluation: 05/03/17 Time of Evaluation: 22:56 - Subjective Subjective: patient seen and chart reviewed EVENTS NOTED. PATIENT TRANSFERRED TO ICU PATIENT WAS DESATURATING. C/O SHORTNESS OF BREATH ON MINIMAL EXERTION pULSE OX 86% PRESENTLY ON BIPAP-PULSE OX 92%-94% Objective - Vital Signs/Intake and Output Vital Signs (last 24 hours): Temp Pulse Resp BP Pulse Ox 99.1 F 102 H 18 140/87 94 L 05/03/17 21:00 05/03/17 22:00 05/03/17 22:00 05/03/17 21:59 05/03/17 22:00 Intake and Output: 05/03/17 05/04/17 18:59 06:59 Intake Total 500 Balance 500 - Medications Medications: Current Medications Albuterol/Ipratropium (Duoneb 3 Mg/0.5 Mg (3 Ml) Ud) 3 ml INH RQ6 ON [facility] OF [facility] Last Admin: 05/03/17 20:29 Dose: 3 ml Benzocaine/Menthol (Cepacol Sore Throat) 1 pravin MT QID ON [facility] OF [facility] Last Admin: 05/03/17 22:32 Dose: Not Given Benzonatate (Tessalon Perles) 100 mg PO TID [facility] Last Admin: 05/03/17 17:24 Dose: 100 mg Budesonide (Pulmicort Respules) 0.5 mg INH RQ12 ON [facility] OF [facility] Last Admin: 05/03/17 20:29 Dose: 0.5 mg Guaifenesin (Robitussin) 100 mg PO Q4H PRN PRN Reason: Cough Last Admin: 05/03/17 13:52 Dose: 100 mg Heparin Sodium (Porcine) (Heparin) 5,000 units SC Q8 [facility] Last Admin: 05/03/17 22:31 Dose: 5,000 units Hydrochlorothiazide (Microzide) 12.5 mg PO DAILY [facility] Last Admin: 05/03/17 10:48 Dose: 12.5 mg Tigecycline 50 mg/ Sodium (Chloride) 100 mls @ 100 mls/hr IVPB Q12H ON [facility] OF [facility] Last Admin: 05/03/17 17:35 Dose: 100 mls/hr Micafungin Sodium 100 mg/ (Sodium Chloride) 100 mls @ 100 mls/hr IV Q24H ON [facility] OF [facility] Last Admin: 05/03/17 00:02 Dose: 100 mls/hr Lactulose (Enulose) 20 gm PO DAILY [facility] Last Admin: 05/03/17 10:47 Dose: Not Given Losartan Potassium (Cozaar) 100 mg PO DAILY [facility] Last Admin: 05/03/17 10:47 Dose: 100 mg Methylprednisolone (Solu-Medrol) 40 mg IV Q8H [facility] Last Admin: 05/03/17 17:02 Dose: 40 mg Nifedipine (Procardia) 10 mg PO DAILY [facility] Last Admin: 05/03/17 10:47 Dose: 10 mg Pantoprazole Sodium (Protonix Ec Tab) 40 mg PO DAILY [facility] Last Admin: 05/03/17 10:48 Dose: 40 mg Potassium Chloride (Klor-Con 10) 10 meq PO BID ON [facility] OF [facility] Last Admin: 05/03/17 17:23 Dose: 10 meq - Labs Labs: 05/03/17 08:08 05/03/17 08:08 PT 10.9 SECONDS (9.7-12.2) 04/23/17 17:14 INR 1.0 04/23/17 17:14 APTT 25 SECONDS (21-34) 04/23/17 17:14 - Constitutional Appears: No Acute Distress - Head Exam Head Exam: NORMAL INSPECTION - Eye Exam Eye Exam: EOMI, PERRL - ENT Exam ENT Exam: Normal Oropharynx - Neck Exam Neck Exam: Normal Inspection - Respiratory Exam Respiratory Exam: Prolonged Expiratory Phase, Wheezes - Cardiovascular Exam Cardiovascular Exam: Tachycardia, REGULAR RHYTHM, +S1, +S2 - GI/Abdominal Exam GI & Abdominal Exam: Soft, Normal Bowel Sounds - Extremities Exam Extremities Exam: Pedal Edema. absent: Calf Tenderness - Neurological Exam Neurological Exam: Awake, Oriented x3, Reflexes Normal - Psychiatric Exam Psychiatric exam: Normal Affect - Skin Skin Exam: Normal Color, Warm Assessment and Plan (1) Asthma exacerbation Status: Acute (2) Bronchitis Status: Acute (3) HTN (hypertension) Status: Chronic (4) GERD (gastroesophageal reflux disease) Status: Chronic - Assessment and Plan (Free Text) Assessment: ASSESSMENT/PLAN : RESPIRATORY FAILURE ON BIPAP R/O PE EXACERBATION OF BRONCHIAL ASTHMA BRONCHIOLITIS? VIRAL /FLUE R/O SUPERINFECTION ? FUNGAL LEUKOCYTOSIS ? STEROIDS VS SEPSIS HYPERTENSION. GERD. PLan. VQ SCAN PER PULMONARY/TRUCK HOPPER-P ON IV TYGACIL 50MG IV Q 12HRLY 04/26/17. ON IV MYCAMINE 100MG IV QD DAILY. 05/01/17 *ADD IV AZACTAM 250MG IVPB TEST DOSE FOR PSEUDOMONAL COVERAGE. WATCH FOR ANY REACTION -RASH,ITCHING,HYPOTENSION OR SEIZURE. AND NOTIFY MD PITTS ASPERGILLUS ANTIBODIES AND ANTIGEN.-P BLOOD CULTURES X 2 SETS STAT. 05/04/17 PULMONARY F/U NOTED - CONTINUE NEBULIZER THERAPY. iv STEROIDS as per pmd. PULMONARY/TRUCK HOPPER NOTED.
[2017-05-04] MEDS: Micafungin 100 MG in Sodium Chloride 0.9% 100 ML IV SCH (00:34)
--- NOTE | 2017-05-04 01:00 | NM ---
EXAM: NM Lung Perfusion and Ventilation Scan CLINICAL HISTORY: 81 years old, female; Screening exam; Other screening; Additional info: R/O pe TECHNIQUE: Nuclear Medicine ventilation and perfusion images of the lungs were obtained in multiple projections following inhalation of and injection of Tc99m MAA.Radiopharmaceutical used:25 mCi of technetium 99m DTPA and 4 mCi of technetium 99m MAA. COMPARISON: No relevant prior studies available. FINDINGS: Ventilation: There is tracer accumulation within the major airways. Heterogeneous ventilation. Perfusion: No perfusion defects are identified. IMPRESSION: Low probability for pulmonary embolus.
[2017-05-04] MEDS: Albuterol-Ipratrop 3 mg / 0.5 (3 ml) UD INH SCH ×4 (01:36→19:20)
[2017-05-04] MEDS: MethylPREDNISolone 40 mg Vial IV SCH ×3 (01:39→19:00)
[2017-05-04] MEDS ORDERED: AZTREONAM IVPB ONE ×3 (03:00→03:15)
[2017-05-04] MEDS ORDERED: SODIUM CHLORIDE 0.9% IVPB ONE ×2 (03:00→03:15)
[2017-05-04] MEDS ORDERED: WATER IVPB ONE (03:15)
[2017-05-04] MEDS ORDERED: DEXTROSE 5% IVPB ONE (03:15)
[2017-05-04 06:34] LABS: BASO # 0.1 K/uL (0.0-0.2); BASO % 0.4 % (0.0-2.0); HEMATOCRIT 44.1 % (34.0-47.0); LYMPH # 0.4 K/uL (1.0-4.3); LYMPH % 2.2 % (20.0-40.0); MEAN CELL VOLUME 95.1 fL (81.0-99.0); MEAN CORPUSCULAR HEMOGLOBIN 31.4 pg (27.0-31.0); MEAN PLATELET VOLUME 9.6 fL (7.2-11.7); MONO # 1.2 K/uL (0.0-0.8); MONO % 6.1 % (0.0-10.0); PLATELET COUNT 297 K/uL (130-400); RED CELL DISTRIBUTION WIDTH 14.7 % (11.5-14.5); WHITE BLOOD COUNT 20.3 K/uL (4.8-10.8)
[2017-05-04 07:16] LABS: ALB/GLOB RATIO 0.9 (1.0-2.1); BILIRUBIN,TOTAL 1.2 mg/dL (0.2-1.3); CALCIUM 8.2 mg/dl (8.6-10.4); POTASSIUM 3.1 mmol/L (3.6-5.2); TOTAL PROTEIN 6.2 g/dL (6.3-8.3)
[2017-05-04] MEDS: Budesonide 0.5 mg/2 ml Inhal Susp UD INH SCH ×2 (07:27→19:21)
[2017-05-04 08:21] LABS: METAMYELOCYTE 1 % (0-0); NEUTROPHIL 84 % (50-75); REACTIVE LYMPHOCYTES 1 % (0-0); TOTAL CELLS COUNTED 100
--- NOTE | 2017-05-04 08:28 | RAD ---
Chest x-ray single frontal view History: Shortness of breath. Comparison: 04/26/2017 Findings: Biapical pleural thickening with upper lobe granulomatous changes. Diffuse increased interstitial lung markings. Patchy increased markings at both lung bases with a suggestion of trace bilateral pleural effusions. Right hilar prominence. Mild cardiomegaly. Bilateral paratracheal prominence may represent prominent vasculature. Degenerative changes in the spine and shoulders. Impression: Patchy increased markings at both lung bases with a suggestion of trace bilateral pleural effusions. Right hilar prominence. Mild cardiomegaly.
--- NOTE | 2017-05-04 10:15 | CP.PCM.PN ---
Subjective - Date & Time of Evaluation Date of Evaluation: 05/04/17 Time of Evaluation: 09:20 - Subjective Subjective: The patient seen and examined Patient transferred to intensive care unit for hypoxemia and worsening shortness of breath CAT scan of the chest showed no infiltrate VQ scan low probability Pro BNP within normal limits IgE level 12 Being treated for severe persistent asthma and sinus infection/GERD Objective - Vital Signs/Intake and Output Vital Signs (last 24 hours): Temp Pulse Resp BP Pulse Ox 98.7 F 107 H 15 150/91 H 93 L 05/04/17 08:00 05/04/17 07:59 05/04/17 07:59 05/04/17 07:59 05/04/17 08:00 Intake and Output: 05/04/17 05/04/17 06:59 18:59 Intake Total 840 Output Total 350 Balance 490 - Medications Medications: Current Medications Albuterol/Ipratropium (Duoneb 3 Mg/0.5 Mg (3 Ml) Ud) 3 ml INH RQ6 [facility] Last Admin: 05/04/17 07:27 Dose: 3 ml Benzocaine/Menthol (Cepacol Sore Throat) 1 pravin MT QID [facility] Last Admin: 05/03/17 22:32 Dose: Not Given Benzonatate (Tessalon Perles) 100 mg PO TID [facility] Last Admin: 05/03/17 17:24 Dose: 100 mg Budesonide (Pulmicort Respules) 0.5 mg INH RQ12 [facility] Last Admin: 05/04/17 07:27 Dose: 0.5 mg Guaifenesin (Robitussin) 100 mg PO Q4H PRN PRN Reason: Cough Last Admin: 05/03/17 13:52 Dose: 100 mg Heparin Sodium (Porcine) (Heparin) 5,000 units SC Q8 [facility] Last Admin: 05/04/17 05:37 Dose: 5,000 units Hydrochlorothiazide (Microzide) 12.5 mg PO DAILY [facility] Last Admin: 05/03/17 10:48 Dose: 12.5 mg Tigecycline 50 mg/ Sodium (Chloride) 100 mls @ 100 mls/hr IVPB Q12H [facility] Last Admin: 05/04/17 05:38 Dose: 100 mls/hr Micafungin Sodium 100 mg/ (Sodium Chloride) 100 mls @ 100 mls/hr IV Q24H [facility] Last Admin: 05/04/17 00:34 Dose: 100 mls/hr Lactulose (Enulose) 20 gm PO DAILY [facility] Last Admin: 05/03/17 10:47 Dose: Not Given Losartan Potassium (Cozaar) 100 mg PO DAILY [facility] Last Admin: 05/03/17 10:47 Dose: 100 mg Methylprednisolone (Solu-Medrol) 40 mg IV Q8H [facility] Last Admin: 05/04/17 09:54 Dose: 40 mg Nifedipine (Procardia) 10 mg PO DAILY [facility] Last Admin: 05/03/17 10:47 Dose: 10 mg Pantoprazole Sodium (Protonix Ec Tab) 40 mg PO DAILY [facility] Last Admin: 05/03/17 10:48 Dose: 40 mg Potassium Chloride (Klor-Con 10) 10 meq PO BID [facility] Last Admin: 05/03/17 17:23 Dose: 10 meq - Labs Labs: 05/04/17 06:18 05/04/17 06:18 PT 10.9 SECONDS (9.7-12.2) 04/23/17 17:14 INR 1.0 04/23/17 17:14 APTT 25 SECONDS (21-34) 04/23/17 17:14 Assessment and Plan (1) Asthma exacerbation Status: Acute
[2017-05-04] MEDS: Benzocaine/Menthol (Cepacol) Lozenge MT SCH ×5 (10:29→22:07)
[2017-05-04] MEDS: Pantoprazole 40 mg EC Tab PO SCH (10:32)
[2017-05-04] MEDS: Potassium Chloride 10 mEq ER Tab PO SCH ×2 (10:44→19:06)
[2017-05-04 11:51] LABS: MAGNESIUM 2.2 mg/dL (1.6-2.3); PHOSPHOROUS 4.4 mg/dL (2.5-4.5)
[2017-05-04] MEDS: (Novolin R) Insulin Human Regular 100 units/ml vial SC SCH ×3 (12:14→21:38)
--- NOTE | 2017-05-04 13:58 | CP.PCM.PN ---
Subjective - Date & Time of Evaluation Date of Evaluation: 05/04/17 Time of Evaluation: 13:55 - Subjective Subjective: PT TRANSFERRED TO ICU DUE TO PROGRESSIVE HYPOXEMIA AND IMPENDING RESP. FAILURE A V/Q SCAN LOW PROBABILITY OF PE NO DEFINITE INFILTRATE WBC 20 K ON IV AB AND STEROIDS REFRACTORY BRONCHOSPASM Objective - Vital Signs/Intake and Output Vital Signs (last 24 hours): Temp Pulse Resp BP Pulse Ox 98.7 F 101 H 19 128/87 94 L 05/04/17 08:00 05/04/17 11:00 05/04/17 11:00 05/04/17 09:59 05/04/17 11:00 Intake and Output: 05/04/17 05/04/17 11:59 23:59 Intake Total 1100 Output Total 600 Balance 500 - Medications Medications: Current Medications Albuterol/Ipratropium (Duoneb 3 Mg/0.5 Mg (3 Ml) Ud) 3 ml INH RQ6 [facility] Last Admin: 05/04/17 13:03 Dose: 3 ml Benzocaine/Menthol (Cepacol Sore Throat) 1 pravin MT QID [facility] Last Admin: 05/04/17 10:29 Dose: 1 pravin Benzonatate (Tessalon Perles) 100 mg PO TID [facility] Last Admin: 05/04/17 10:31 Dose: 100 mg Budesonide (Pulmicort Respules) 0.5 mg INH RQ12 [facility] Last Admin: 05/04/17 07:27 Dose: 0.5 mg Guaifenesin (Robitussin) 100 mg PO Q4H PRN PRN Reason: Cough Last Admin: 05/03/17 13:52 Dose: 100 mg Heparin Sodium (Porcine) (Heparin) 5,000 units SC Q8 [facility] Last Admin: 05/04/17 05:37 Dose: 5,000 units Hydrochlorothiazide (Microzide) 12.5 mg PO DAILY [facility] Last Admin: 05/04/17 10:30 Dose: 12.5 mg Tigecycline 50 mg/ Sodium (Chloride) 100 mls @ 100 mls/hr IVPB Q12H [facility] Last Admin: 05/04/17 05:38 Dose: 100 mls/hr Micafungin Sodium 100 mg/ (Sodium Chloride) 100 mls @ 100 mls/hr IV Q24H [facility] Last Admin: 05/04/17 00:34 Dose: 100 mls/hr Insulin Human Regular (Novolin R) 0 unit SC ACHS [facility] PRN Reason: Protocol Last Admin: 05/04/17 12:14 Dose: 6 unit Lactulose (Enulose) 20 gm PO DAILY [facility] Last Admin: 05/04/17 10:45 Dose: Not Given Losartan Potassium (Cozaar) 100 mg PO DAILY [facility] Last Admin: 05/04/17 10:28 Dose: 100 mg Methylprednisolone (Solu-Medrol) 40 mg IV Q8H [facility] Last Admin: 05/04/17 09:54 Dose: 40 mg Nifedipine (Procardia) 10 mg PO DAILY [facility] Last Admin: 05/04/17 10:30 Dose: 10 mg Pantoprazole Sodium (Protonix Ec Tab) 40 mg PO DAILY [facility] Last Admin: 05/04/17 10:32 Dose: 40 mg Potassium Chloride (Klor-Con 10) 10 meq PO BID [facility] Last Admin: 05/04/17 10:44 Dose: 10 meq - Labs Labs: 05/04/17 06:18 05/04/17 06:18 PT 10.9 SECONDS (9.7-12.2) 04/23/17 17:14 INR 1.0 04/23/17 17:14 APTT 25 SECONDS (21-34) 04/23/17 17:14 Assessment and Plan (1) HTN (hypertension) Status: Chronic (2) Asthma exacerbation Status: Acute (3) COPD exacerbation Status: Acute (4) GERD (gastroesophageal reflux disease) Status: Chronic (5) Hyperlipidemia Status: Chronic
--- NOTE | 2017-05-04 16:40 | CP.CCUPN ---
<Bunny Larios - Last Filed: 05/04/17 16:37> CCU Subjective - Physician Review Subjective (Free Text): PGY1 ICU progress note for Dr. Demetris Barron Patient seen and examined at bedside this morning. Patient is resting comfortably in her bed, speaking in full sentences while on oxygen by NC @ 4L. Patient states that she is feeling well and has no complaints at this time. She is requesting to have oxygen at home because she says it makes her feel much better. CCU Objective - Vital Signs / Intake & Output Intake and Output (Last 8hrs): Intake & Output 05/04/17 05/04/17 05/04/17 06:59 14:59 22:59 Intake Total 840 360 Output Total 350 250 Balance 490 110 Intake: Intake, IV Amount 450 Left Hand 450 Oral 390 360 Output: Urine 350 250 Urine, Voided 350 250 Stool 0 - Physical Exam Head: Positive for: Atraumatic, Normocephalic Pupils: Positive for: PERRL Extroacular Muscles: Positive for: EOMI Conjunctiva: Positive for: Normal Mouth: Positive for: Moist Mucous Membranes Neck: Positive for: Normal Range of Motion, Trachea Midline Respiratory/Chest: Positive for: Clear to Auscultation, Good Air Exchange, Rales (bases b/l). Negative for: Respiratory Distress, Accessory Muscle Use, Wheezes Cardiovascular: Positive for: Regular Rate and Rhythm, Normal S1, S2. Negative for: Murmurs Abdomen: Positive for: Normal Bowel Sounds. Negative for: Tenderness, Distention, Peritoneal Signs Upper Extremity: Positive for: Normal Inspection, Normal ROM, NORMAL PULSES, Capillary Refill < 2s. Negative for: Cyanosis, Edema Lower Extremity: Positive for: Normal Inspection, NORMAL PULSES. Negative for: Edema, CALF TENDERNESS Neurological: Positive for: GCS=15, CN II-XII Intact, Speech Normal, Motor Func Grossly Intact, Normal Sensory Function Skin: Positive for: Warm, Dry. Negative for: Rashes Psychiatric: Positive for: Alert, Oriented x 3, Normal Insight, Normal Concentration - Medications Active Medications: Active Medications Generic Name Dose Route Start Last Admin Trade Name Freq PRN Reason Stop Dose Admin Albuterol/Ipratropium 3 ml 05/03/17 14:00 05/04/17 13:03 Duoneb 3 Mg/0.5 Mg (3 Ml) Ud INH 3 ml RQ6 [facility] Administration Benzocaine/Menthol 1 pravin 04/27/17 18:00 05/04/17 14:38 Cepacol Sore Throat MT Not Given QID [facility] Benzonatate 100 mg 05/01/17 18:00 05/04/17 14:35 Tessalon Perles PO 100 mg TID [facility] Administration Budesonide 0.5 mg 04/26/17 20:00 05/04/17 07:27 Pulmicort Respules INH 0.5 mg RQ12 [facility] Administration Guaifenesin 100 mg 04/27/17 15:28 05/03/17 13:52 Robitussin PO 100 mg Q4H PRN Administration Cough Heparin Sodium (Porcine) 5,000 units 05/03/17 22:00 05/04/17 14:35 Heparin SC 5,000 units Q8 [facility] Administration Hydrochlorothiazide 12.5 mg 04/24/17 10:00 05/04/17 10:30 Microzide PO 12.5 mg DAILY [facility] Administration Tigecycline 50 mg/ Sodium 100 mls @ 100 mls/hr 04/27/17 18:00 05/04/17 05:38 Chloride IVPB 100 mls/hr Q12H [facility] Administration Micafungin Sodium 100 mg/ 100 mls @ 100 mls/hr 04/30/17 23:45 05/04/17 00:34 Sodium Chloride IV 100 mls/hr Q24H [facility] Administration Aztreonam 500 mg/ Sodium 50 mls @ 100 mls/hr 05/04/17 18:00 Chloride IVPB Q8H [facility] Insulin Human Regular 0 unit 05/04/17 11:30 05/04/17 12:14 Novolin R SC 6 unit ACHS [facility] Administration Protocol Lactulose 20 gm 04/30/17 10:00 05/04/17 10:45 Enulose PO Not Given DAILY [facility] Losartan Potassium 100 mg 04/27/17 10:00 05/04/17 10:28 Cozaar PO 100 mg DAILY [facility] Administration Methylprednisolone 40 mg 05/01/17 17:23 05/04/17 09:54 Solu-Medrol IV 40 mg Q8H [facility] Administration Nifedipine 10 mg 04/28/17 16:00 05/04/17 10:30 Procardia PO 10 mg DAILY [facility] Administration Pantoprazole Sodium 40 mg 04/24/17 10:00 05/04/17 10:32 Protonix Ec Tab PO 40 mg DAILY [facility] Administration Potassium Chloride 10 meq 05/01/17 18:00 05/04/17 10:44 Klor-Con 10 PO 10 meq BID [facility] Administration - Patient Studies Lab Studies: Microbiology Studies 05/03/17 Unknown Gram Stain - Final Sputum Lab Studies 05/04/17 05/04/17 05/04/17 Range/Units 11:25 10:21 06:18 WBC (4.8-10.8) K/uL RBC (3.80-5.20) Mil/uL Hgb (11.0-16.0) g/dL Hct (34.0-47.0) % MCV (81.0-99.0) fL MCH (27.0-31.0) pg MCHC (33.0-37.0) g/dL RDW (11.5-14.5) % Plt Count (130-400) K/uL MPV (7.2-11.7) fL Neut % (Auto) (50.0-75.0) % Lymph % (Auto) (20.0-40.0) % Nolan % (Auto) (0.0-10.0) % Eos % (Auto) (0.0-4.0) % Baso % (Auto) (0.0-2.0) % Neut # (1.8-7.0) K/uL Lymph # (1.0-4.3) K/uL Nolan # (0.0-0.8) K/uL Eos # (0.0-0.7) K/uL Baso # (0.0-0.2) K/uL Neutrophils % (Manual) (50-75) % Band Neutrophils % (0-2) % Lymphocytes % (Manual) (20-40) % Reactive Lymphs % (0-0) % Monocytes % (Manual) (0-10) % Metamyelocytes % (0-0) % Toxic Granulation Platelet Estimate (NORMAL) Target Cells D-Dimer, Quantitative (0-243) ng/mlDDU Sodium 138 (132-148) mmol/L Potassium 3.1 L (3.6-5.2) mmol/L Chloride 95 L (98-107) mmol/L Carbon Dioxide 33 H (22-30) mmol/L Anion Gap 12 (10-20) BUN 62 H (7-17) mg/dL Creatinine 1.3 H (0.7-1.2) mg/dL Est GFR ( Amer) 48 Est GFR (Non-Af Amer) 40 POC Glucose (mg/dL) 343 H (65-110) mg/dL Random Glucose 349 H (65-105) mg/dL Calcium 8.2 L (8.6-10.4) mg/dl Phosphorus 4.4 (2.5-4.5) mg/dL Magnesium 2.2 (1.6-2.3) mg/dL Total Bilirubin 1.2 (0.2-1.3) mg/dL AST 23 (14-36) U/L ALT 77 H (9-52) U/L Alkaline Phosphatase 89 (38-126) U/L Total Protein 6.2 L (6.3-8.3) g/dL Albumin 3.0 L (3.5-5.0) g/dL Globulin 3.2 (2.2-3.9) gm/dL Albumin/Globulin Ratio 0.9 L (1.0-2.1) 05/04/17 05/03/17 Range/Units 06:18 17:00 WBC 20.3 H (4.8-10.8) K/uL RBC 4.64 (3.80-5.20) Mil/uL Hgb 14.6 (11.0-16.0) g/dL Hct 44.1 (34.0-47.0) % MCV 95.1 (81.0-99.0) fL MCH 31.4 H (27.0-31.0) pg MCHC 33.0 (33.0-37.0) g/dL RDW 14.7 H (11.5-14.5) % Plt Count 297 (130-400) K/uL MPV 9.6 (7.2-11.7) fL Neut % (Auto) 91.3 H (50.0-75.0) % Lymph % (Auto) 2.2 L (20.0-40.0) % Nolan % (Auto) 6.1 (0.0-10.0) % Eos % (Auto) 0.0 (0.0-4.0) % Baso % (Auto) 0.4 (0.0-2.0) % Neut # 18.6 H (1.8-7.0) K/uL Lymph # 0.4 L (1.0-4.3) K/uL Nolan # 1.2 H (0.0-0.8) K/uL Eos # 0.0 (0.0-0.7) K/uL Baso # 0.1 (0.0-0.2) K/uL Neutrophils % (Manual) 84 H (50-75) % Band Neutrophils % 7 H (0-2) % Lymphocytes % (Manual) 3 L (20-40) % Reactive Lymphs % 1 H (0-0) % Monocytes % (Manual) 4 (0-10) % Metamyelocytes % 1 H (0-0) % Toxic Granulation Present Platelet Estimate Normal (NORMAL) Target Cells Slight D-Dimer, Quantitative 373 H (0-243) ng/mlDDU Sodium (132-148) mmol/L Potassium (3.6-5.2) mmol/L Chloride (98-107) mmol/L Carbon Dioxide (22-30) mmol/L Anion Gap (10-20) BUN (7-17) mg/dL Creatinine (0.7-1.2) mg/dL Est GFR ( Amer) Est GFR (Non-Af Amer) POC Glucose (mg/dL) (65-110) mg/dL Random Glucose (65-105) mg/dL Calcium (8.6-10.4) mg/dl Phosphorus (2.5-4.5) mg/dL Magnesium (1.6-2.3) mg/dL Total Bilirubin (0.2-1.3) mg/dL AST (14-36) U/L ALT (9-52) U/L Alkaline Phosphatase (38-126) U/L Total Protein (6.3-8.3) g/dL Albumin (3.5-5.0) g/dL Globulin (2.2-3.9) gm/dL Albumin/Globulin Ratio (1.0-2.1) Laboratory Results - last 24 hr 05/03/17 05/04/17 05/04/17 17:00 06:18 06:18 WBC 20.3 H RBC 4.64 Hgb 14.6 Hct 44.1 MCV 95.1 MCH 31.4 H MCHC 33.0 RDW 14.7 H Plt Count 297 MPV 9.6 Neut % (Auto) 91.3 H Lymph % (Auto) 2.2 L Nolan % (Auto) 6.1 Eos % (Auto) 0.0 Baso % (Auto) 0.4 Neut # 18.6 H Lymph # 0.4 L Nolan # 1.2 H Eos # 0.0 Baso # 0.1 Neutrophils % (Manual) 84 H Band Neutrophils % 7 H Lymphocytes % (Manual) 3 L Reactive Lymphs % 1 H Monocytes % (Manual) 4 Metamyelocytes % 1 H Toxic Granulation Present Platelet Estimate Normal Target Cells Slight D-Dimer, Quantitative 373 H Sodium 138 Potassium 3.1 L Chloride 95 L Carbon Dioxide 33 H Anion Gap 12 BUN 62 H Creatinine 1.3 H Est GFR ( Amer) 48 Est GFR (Non-Af Amer) 40 POC Glucose (mg/dL) Random Glucose 349 H Calcium 8.2 L Phosphorus Magnesium Total Bilirubin 1.2 AST 23 ALT 77 H Alkaline Phosphatase 89 Total Protein 6.2 L Albumin 3.0 L Globulin 3.2 Albumin/Globulin Ratio 0.9 L 05/04/17 05/04/17 10:21 11:25 WBC RBC Hgb Hct MCV MCH MCHC RDW Plt Count MPV Neut % (Auto) Lymph % (Auto) Nolan % (Auto) Eos % (Auto) Baso % (Auto) Neut # Lymph # Nolan # Eos # Baso # Neutrophils % (Manual) Band Neutrophils % Lymphocytes % (Manual) Reactive Lymphs % Monocytes % (Manual) Metamyelocytes % Toxic Granulation Platelet Estimate Target Cells D-Dimer, Quantitative Sodium Potassium Chloride Carbon Dioxide Anion Gap BUN Creatinine Est GFR ( Amer) Est GFR (Non-Af Amer) POC Glucose (mg/dL) 343 H Random Glucose Calcium Phosphorus 4.4 Magnesium 2.2 Total Bilirubin AST ALT Alkaline Phosphatase Total Protein Albumin Globulin Albumin/Globulin Ratio Fingerstick Blood Sugar Results: 369 Review of Systems - Review of Systems All systems: reviewed and no additional remarkable complaints except (as per HPI ) Critical Care Progress Note - Nutrition Nutrition: Nutrition Category Date Time Status Heart Healthy Diet [DIET] Diets 04/24/17 Breakfast Active Assessment/Plan - Assessment and Plan (Free Text) Assessment: 81 year old female with a significant history of HTN, HLD, Artheritis and severe asthma who was admitted here on 04/23/17 for worsening shortness of breath precipitated by nasal congestion and dry cough. Patient was transferred to ICU due to acute respiratory distress with progressive hypoxemia. Plan: Pulmonary: Dr. Valerio consulted, help appreciated ID consulted, Dr. Langford, help appreciated Asthma Exacerbation - improved, no wheezing at this time. CXR 05/04 - Patchy increased markings at both lung bases with a suggestion of trace bilateral pleural effusions. Right hilar prominence. Mild cardiomegaly. VQ scan 05/03 - low probability Chest CT 05/02 - No active pulmonary disease. Stable postoperative findings related to esophagectomy and gastric pull through. 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 Duoneb 3ml INH q6h Budesonide 0.5mg INH q12h Solumedrol 40mg IV q8h Aztreonam 500mg IVPB q8h Micafungin 100mg IV q24h Tigecycline 50 mg IVPB q12h - patient has hx of many allergies. oxygen by NC 4L during day; BIPAP at night CV: HTN - hemodynamically stable. Nifedipine 10mg PO daily Losartan 100mg PO daily HCTZ 12.5mg PO daily GI: hx of esophageal CA - s/p resection with gastric pull through Endo: no known hx of DM, elevated BS 2/2 to steroid use ISS Prophylactic Care: Heparin 5000units SC q8h Protonix 40mg PO daily Case discussed with Dr. Demetris Larios PGY1 <Hannah Barron - Last Filed: 05/04/17 19:00> CCU Objective - Vital Signs / Intake & Output Vital Signs (Last 4 hours): Vital Signs Pulse Resp BP Pulse Ox 05/04/17 17:00 98 H 17 135/91 H 96 05/04/17 16:59 99 H 19 135/91 H 95 05/04/17 16:00 101 H 17 130/97 H 97 05/04/17 15:59 102 H 13 130/97 H 97 05/04/17 15:00 98 H 15 139/89 94 L Intake and Output (Last 8hrs): Intake & Output 05/04/17 05/04/17 05/04/17 06:59 14:59 22:59 Intake Total 840 360 Output Total 350 250 Balance 490 110 Intake: Intake, IV Amount 450 Left Hand 450 Oral 390 360 Output: Urine 350 250 Urine, Voided 350 250 Stool 0 - Medications Active Medications: Active Medications Generic Name Dose Route Start Last Admin Trade Name Freq PRN Reason Stop Dose Admin Albuterol/Ipratropium 3 ml 05/03/17 14:00 05/04/17 13:03 Duoneb 3 Mg/0.5 Mg (3 Ml) Ud INH 3 ml RQ6 [facility] Administration Benzocaine/Menthol 1 pravin 04/27/17 18:00 05/04/17 14:38 Cepacol Sore Throat MT Not Given QID [facility] Benzonatate 100 mg 05/01/17 18:00 05/04/17 14:35 Tessalon Perles PO 100 mg TID [facility] Administration Budesonide 0.5 mg 04/26/17 20:00 05/04/17 07:27 Pulmicort Respules INH 0.5 mg RQ12 [facility] Administration Guaifenesin 100 mg 04/27/17 15:28 05/03/17 13:52 Robitussin PO 100 mg Q4H PRN Administration Cough Heparin Sodium (Porcine) 5,000 units 05/03/17 22:00 05/04/17 14:35 Heparin SC 5,000 units Q8 [facility] Administration Hydrochlorothiazide 12.5 mg 04/24/17 10:00 05/04/17 10:30 Microzide PO 12.5 mg DAILY [facility] Administration Tigecycline 50 mg/ Sodium 100 mls @ 100 mls/hr 04/27/17 18:00 05/04/17 05:38 Chloride IVPB 100 mls/hr Q12H [facility] Administration Micafungin Sodium 100 mg/ 100 mls @ 100 mls/hr 04/30/17 23:45 05/04/17 00:34 Sodium Chloride IV 100 mls/hr Q24H [facility] Administration Aztreonam 500 mg/ Sodium 100 mls @ 100 mls/hr 05/04/17 17:00 05/04/17 17:15 Chloride IVPB 100 mls/hr Q8H [facility] Administration Insulin Human Regular 0 unit 05/04/17 11:30 05/04/17 17:29 Novolin R SC 3 unit ACHS [facility] Administration Protocol Lactulose 20 gm 04/30/17 10:00 05/04/17 10:45 Enulose PO Not Given DAILY [facility] Losartan Potassium 100 mg 04/27/17 10:00 05/04/17 10:28 Cozaar PO 100 mg DAILY [facility] Administration Methylprednisolone 40 mg 05/01/17 17:23 05/04/17 09:54 Solu-Medrol IV 40 mg Q8H [facility] Administration Nifedipine 10 mg 04/28/17 16:00 05/04/17 10:30 Procardia PO 10 mg DAILY [facility] Administration Pantoprazole Sodium 40 mg 04/24/17 10:00 05/04/17 10:32 Protonix Ec Tab PO 40 mg DAILY [facility] Administration Potassium Chloride 10 meq 05/01/17 18:00 05/04/17 10:44 Klor-Con 10 PO 10 meq BID [facility] Administration - Patient Studies Lab Studies: Microbiology Studies 05/03/17 Unknown Gram Stain - Final Sputum Lab Studies 05/04/17 05/04/17 05/04/17 Range/Units 16:51 11:25 10:21 WBC (4.8-10.8) K/uL RBC (3.80-5.20) Mil/uL Hgb (11.0-16.0) g/dL Hct (34.0-47.0) % MCV (81.0-99.0) fL MCH (27.0-31.0) pg MCHC (33.0-37.0) g/dL RDW (11.5-14.5) % Plt Count (130-400) K/uL MPV (7.2-11.7) fL Neut % (Auto) (50.0-75.0) % Lymph % (Auto) (20.0-40.0) % Nolan % (Auto) (0.0-10.0) % Eos % (Auto) (0.0-4.0) % Baso % (Auto) (0.0-2.0) % Neut # (1.8-7.0) K/uL Lymph # (1.0-4.3) K/uL Nolan # (0.0-0.8) K/uL Eos # (0.0-0.7) K/uL Baso # (0.0-0.2) K/uL Neutrophils % (Manual) (50-75) % Band Neutrophils % (0-2) % Lymphocytes % (Manual) (20-40) % Reactive Lymphs % (0-0) % Monocytes % (Manual) (0-10) % Metamyelocytes % (0-0) % Toxic Granulation Platelet Estimate (NORMAL) Target Cells Sodium (132-148) mmol/L Potassium (3.6-5.2) mmol/L Chloride (98-107) mmol/L Carbon Dioxide (22-30) mmol/L Anion Gap (10-20) BUN (7-17) mg/dL Creatinine (0.7-1.2) mg/dL Est GFR ( Amer) Est GFR (Non-Af Amer) POC Glucose (mg/dL) 209 H 343 H (65-110) mg/dL Random Glucose (65-105) mg/dL Calcium (8.6-10.4) mg/dl Phosphorus 4.4 (2.5-4.5) mg/dL Magnesium 2.2 (1.6-2.3) mg/dL Total Bilirubin (0.2-1.3) mg/dL AST (14-36) U/L ALT (9-52) U/L Alkaline Phosphatase (38-126) U/L Total Protein (6.3-8.3) g/dL Albumin (3.5-5.0) g/dL Globulin (2.2-3.9) gm/dL Albumin/Globulin Ratio (1.0-2.1) 05/04/17 05/04/17 Range/Units 06:18 06:18 WBC 20.3 H (4.8-10.8) K/uL RBC 4.64 (3.80-5.20) Mil/uL Hgb 14.6 (11.0-16.0) g/dL Hct 44.1 (34.0-47.0) % MCV 95.1 (81.0-99.0) fL MCH 31.4 H (27.0-31.0) pg MCHC 33.0 (33.0-37.0) g/dL RDW 14.7 H (11.5-14.5) % Plt Count 297 (130-400) K/uL MPV 9.6 (7.2-11.7) fL Neut % (Auto) 91.3 H (50.0-75.0) % Lymph % (Auto) 2.2 L (20.0-40.0) % Nolan % (Auto) 6.1 (0.0-10.0) % Eos % (Auto) 0.0 (0.0-4.0) % Baso % (Auto) 0.4 (0.0-2.0) % Neut # 18.6 H (1.8-7.0) K/uL Lymph # 0.4 L (1.0-4.3) K/uL Nolan # 1.2 H (0.0-0.8) K/uL Eos # 0.0 (0.0-0.7) K/uL Baso # 0.1 (0.0-0.2) K/uL Neutrophils % (Manual) 84 H (50-75) % Band Neutrophils % 7 H (0-2) % Lymphocytes % (Manual) 3 L (20-40) % Reactive Lymphs % 1 H (0-0) % Monocytes % (Manual) 4 (0-10) % Metamyelocytes % 1 H (0-0) % Toxic Granulation Present Platelet Estimate Normal (NORMAL) Target Cells Slight Sodium 138 (132-148) mmol/L Potassium 3.1 L (3.6-5.2) mmol/L Chloride 95 L (98-107) mmol/L Carbon Dioxide 33 H (22-30) mmol/L Anion Gap 12 (10-20) BUN 62 H (7-17) mg/dL Creatinine 1.3 H (0.7-1.2) mg/dL Est GFR ( Amer) 48 Est GFR (Non-Af Amer) 40 POC Glucose (mg/dL) (65-110) mg/dL Random Glucose 349 H (65-105) mg/dL Calcium 8.2 L (8.6-10.4) mg/dl Phosphorus (2.5-4.5) mg/dL Magnesium (1.6-2.3) mg/dL Total Bilirubin 1.2 (0.2-1.3) mg/dL AST 23 (14-36) U/L ALT 77 H (9-52) U/L Alkaline Phosphatase 89 (38-126) U/L Total Protein 6.2 L (6.3-8.3) g/dL Albumin 3.0 L (3.5-5.0) g/dL Globulin 3.2 (2.2-3.9) gm/dL Albumin/Globulin Ratio 0.9 L (1.0-2.1) Laboratory Results - last 24 hr 05/04/17 05/04/17 05/04/17 06:18 06:18 10:21 WBC 20.3 H RBC 4.64 Hgb 14.6 Hct 44.1 MCV 95.1 MCH 31.4 H MCHC 33.0 RDW 14.7 H Plt Count 297 MPV 9.6 Neut % (Auto) 91.3 H Lymph % (Auto) 2.2 L Nolan % (Auto) 6.1 Eos % (Auto) 0.0 Baso % (Auto) 0.4 Neut # 18.6 H Lymph # 0.4 L Nolan # 1.2 H Eos # 0.0 Baso # 0.1 Neutrophils % (Manual) 84 H Band Neutrophils % 7 H Lymphocytes % (Manual) 3 L Reactive Lymphs % 1 H Monocytes % (Manual) 4 Metamyelocytes % 1 H Toxic Granulation Present Platelet Estimate Normal Target Cells Slight Sodium 138 Potassium 3.1 L Chloride 95 L Carbon Dioxide 33 H Anion Gap 12 BUN 62 H Creatinine 1.3 H Est GFR ( Amer) 48 Est GFR (Non-Af Amer) 40 POC Glucose (mg/dL) Random Glucose 349 H Calcium 8.2 L Phosphorus 4.4 Magnesium 2.2 Total Bilirubin 1.2 AST 23 ALT 77 H Alkaline Phosphatase 89 Total Protein 6.2 L Albumin 3.0 L Globulin 3.2 Albumin/Globulin Ratio 0.9 L 05/04/17 05/04/17 11:25 16:51 WBC RBC Hgb Hct MCV MCH MCHC RDW Plt Count MPV Neut % (Auto) Lymph % (Auto) Nolan % (Auto) Eos % (Auto) Baso % (Auto) Neut # Lymph # Nolan # Eos # Baso # Neutrophils % (Manual) Band Neutrophils % Lymphocytes % (Manual) Reactive Lymphs % Monocytes % (Manual) Metamyelocytes % Toxic Granulation Platelet Estimate Target Cells Sodium Potassium Chloride Carbon Dioxide Anion Gap BUN Creatinine Est GFR ( Amer) Est GFR (Non-Af Amer) POC Glucose (mg/dL) 343 H 209 H Random Glucose Calcium Phosphorus Magnesium Total Bilirubin AST ALT Alkaline Phosphatase Total Protein Albumin Globulin Albumin/Globulin Ratio Critical Care Progress Note - Nutrition Nutrition: Nutrition Category Date Time Status Heart Healthy Diet [DIET] Diets 04/24/17 Breakfast Active Assessment/Plan - Assessment and Plan (Free Text) Plan: Patient seen and examined at bedside. Patient breathing comfortably -continue current management.
--- NOTE | 2017-05-04 18:52 | CP.PCM.PN ---
Subjective - Date & Time of Evaluation Date of Evaluation: 05/04/17 Time of Evaluation: 18:52 - Subjective Subjective: AFEBRILE, SLIGHTLY BETTER BUT STILL CONGESTED. LESS SHORT OF BREATH. TOLERATED TEST DOSE OF AZACTAM IV. INCREASING LEUKOCYTOSIS NOTED. LABS REVIEWED VQ SCAN -VE REPORTED Objective - Vital Signs/Intake and Output Vital Signs (last 24 hours): Temp Pulse Resp BP Pulse Ox 98.7 F 98 H 17 135/91 H 96 05/04/17 08:00 05/04/17 17:00 05/04/17 17:00 05/04/17 17:00 05/04/17 17:00 Intake and Output: 05/04/17 05/04/17 06:59 18:59 Intake Total 840 360 Output Total 350 250 Balance 490 110 - Medications Medications: Current Medications Albuterol/Ipratropium (Duoneb 3 Mg/0.5 Mg (3 Ml) Ud) 3 ml INH RQ6 [facility] Last Admin: 05/04/17 13:03 Dose: 3 ml Benzocaine/Menthol (Cepacol Sore Throat) 1 pravin MT QID [facility] Last Admin: 05/04/17 14:38 Dose: Not Given Benzonatate (Tessalon Perles) 100 mg PO TID [facility] Last Admin: 05/04/17 14:35 Dose: 100 mg Budesonide (Pulmicort Respules) 0.5 mg INH RQ12 [facility] Last Admin: 05/04/17 07:27 Dose: 0.5 mg Guaifenesin (Robitussin) 100 mg PO Q4H PRN PRN Reason: Cough Last Admin: 05/03/17 13:52 Dose: 100 mg Heparin Sodium (Porcine) (Heparin) 5,000 units SC Q8 [facility] Last Admin: 05/04/17 14:35 Dose: 5,000 units Hydrochlorothiazide (Microzide) 12.5 mg PO DAILY [facility] Last Admin: 05/04/17 10:30 Dose: 12.5 mg Tigecycline 50 mg/ Sodium (Chloride) 100 mls @ 100 mls/hr IVPB Q12H [facility] Last Admin: 05/04/17 05:38 Dose: 100 mls/hr Micafungin Sodium 100 mg/ (Sodium Chloride) 100 mls @ 100 mls/hr IV Q24H [facility] Last Admin: 05/04/17 00:34 Dose: 100 mls/hr Aztreonam 500 mg/ Sodium (Chloride) 100 mls @ 100 mls/hr IVPB Q8H [facility] Last Admin: 05/04/17 17:15 Dose: 100 mls/hr Insulin Human Regular (Novolin R) 0 unit SC ACHS [facility] PRN Reason: Protocol Last Admin: 05/04/17 17:29 Dose: 3 unit Lactulose (Enulose) 20 gm PO DAILY [facility] Last Admin: 05/04/17 10:45 Dose: Not Given Losartan Potassium (Cozaar) 100 mg PO DAILY [facility] Last Admin: 05/04/17 10:28 Dose: 100 mg Methylprednisolone (Solu-Medrol) 40 mg IV Q8H [facility] Last Admin: 05/04/17 09:54 Dose: 40 mg Nifedipine (Procardia) 10 mg PO DAILY [facility] Last Admin: 05/04/17 10:30 Dose: 10 mg Pantoprazole Sodium (Protonix Ec Tab) 40 mg PO DAILY [facility] Last Admin: 05/04/17 10:32 Dose: 40 mg Potassium Chloride (Klor-Con 10) 10 meq PO BID [facility] Last Admin: 05/04/17 10:44 Dose: 10 meq - Labs Labs: 05/04/17 06:18 05/04/17 06:18 PT 10.9 SECONDS (9.7-12.2) 04/23/17 17:14 INR 1.0 04/23/17 17:14 APTT 25 SECONDS (21-34) 04/23/17 17:14 - Constitutional Appears: No Acute Distress - Head Exam Head Exam: NORMAL INSPECTION - Eye Exam Eye Exam: EOMI, PERRL - ENT Exam ENT Exam: Mucous Membranes Dry - Neck Exam Neck Exam: Normal Inspection - Respiratory Exam Respiratory Exam: Prolonged Expiratory Phase, Wheezes - Cardiovascular Exam Cardiovascular Exam: Tachycardia, REGULAR RHYTHM, +S1, +S2 - GI/Abdominal Exam GI & Abdominal Exam: Soft, Normal Bowel Sounds - Extremities Exam Extremities Exam: Normal Capillary Refill, Pedal Edema (1+). absent: Calf Tenderness - Neurological Exam Neurological Exam: Awake, CN II-XII Intact, Oriented x3, Reflexes Normal - Psychiatric Exam Psychiatric exam: Normal Mood - Skin Skin Exam: Normal Color, Warm Assessment and Plan (1) Asthma exacerbation Status: Acute (2) Bronchitis Status: Acute (3) HTN (hypertension) Status: Chronic (4) GERD (gastroesophageal reflux disease) Status: Chronic - Assessment and Plan (Free Text) Assessment: ASSESSMENT/PLAN : RESPIRATORY FAILURE ON BIPAP EXACERBATION OF BRONCHIAL ASTHMA BRONCHIOLITIS? VIRAL /FLUE R/O SUPERINFECTION ? FUNGAL R/O SINUSITIS LEUKOCYTOSIS ? STEROIDS VS SEPSIS HYPERTENSION. GERD. PLan. WE WILL GET CT OF THE SINUSES WITHOUT CONTRAST TO RULE OUT POLYPS/SINUSITIS. ON IV TYGACIL 50MG IV Q 12HRLY 04/26/17. ON IV MYCAMINE 100MG IV QD DAILY. 05/01/17 *ADD IV AZACTAM 250MG IVPB TEST DOSE FOR PSEUDOMONAL COVERAGE. WATCH FOR ANY REACTION -RASH,ITCHING,HYPOTENSION OR SEIZURE. AND NOTIFY MD PITTS CONTINUE iv aZACTAM 500 MG EVERY 8 HOURLY DISCUSSED WITH THE STAFF ASPERGILLUS ANTIBODIES AND ANTIGEN.-P BLOOD CULTURES X 2 SETS STAT. 05/04/17-F/U PULMONARY F/U NOTED - CONTINUE NEBULIZER THERAPY. iv STEROIDS PER PMD/PULMONARY PULMONARY/CASH CHECKER NOTED.
--- NOTE | 2017-05-04 19:01 | CARD ---
APPROVED REPORT EXAM: Two-dimensional and M-mode echocardiogram with Doppler and color Doppler. Other Information Quality : FairRhythm : Technically limited study due to body habitus. INDICATION Dyspnea COPD RISK FACTORS Hypertension Obesity 2D DIMENSIONS IVSd0.8 (0.7-1.1cm)LVDd3.5 (3.9-5.9cm) PWd0.9 (0.7-1.1cm)LVDs2.5 (2.5-4.0cm) FS (%) 27.4 %LVEF (%)54.3 (>50%) M-Mode DIMENSIONS Left Atrium (MM)2.60 (2.5-4.0cm)Aortic Root2.62 (2.2-3.7cm) Aortic Cusp Exc.1.62 (1.5-2.0cm) Aortic Valve AI P 1/2 [id number] Mitral Valve MV E Kdorjtfq25.5cm/sMV A Xzgndnzh981.6cm/sE/A ratio0.6 TDI E/Lateral E'0.0E/Medial E'0.0 Tricuspid Valve TR Peak Uuclpwcs184ce/sTR Peak Gr.[id number] <Conclusion> tds. poor window. la,lv & ra rv size appears normal. normal lv wall motion & systolic function with lvef of 60-65%. lv diastolic dysfunction grade one. mitral & tv are probably normal aortic & pv not well seen. mild to moderate ai & mild tr with calculated pulonary systolic pressures of 38 mm of hg,c/w mild pulmonary htn. no pericardial effusion. normal size aortic root & ivc.
[2017-05-05] MEDS: Micafungin 100 MG in Sodium Chloride 0.9% 100 ML IV SCH (00:39)
[2017-05-05] MEDS: MethylPREDNISolone 40 mg Vial IV SCH ×3 (00:40→18:54)
[2017-05-05] MEDS: Albuterol-Ipratrop 3 mg / 0.5 (3 ml) UD INH SCH ×4 (01:30→20:16)
[2017-05-05 06:33] LABS: BASO % 0.1 % (0.0-2.0); HEMATOCRIT 40.6 % (34.0-47.0); LYMPH # 0.4 K/uL (1.0-4.3); LYMPH % 1.8 % (20.0-40.0); MEAN CELL VOLUME 95.7 fL (81.0-99.0); MEAN CORPUSCULAR HEMOGLOBIN 32.5 pg (27.0-31.0); MEAN CORPUSCULAR HGB CONC 33.9 g/dL (33.0-37.0); MONO # 0.9 K/uL (0.0-0.8); MONO % 4.3 % (0.0-10.0); PLATELET COUNT 224 K/uL (130-400); RED CELL DISTRIBUTION WIDTH 14.2 % (11.5-14.5); WHITE BLOOD COUNT 21.5 K/uL (4.8-10.8)
[2017-05-05 06:56] LABS: ALB/GLOB RATIO 0.9 (1.0-2.1); BILIRUBIN,TOTAL 1.1 mg/dL (0.2-1.3); CALCIUM 7.9 mg/dl (8.6-10.4); MAGNESIUM 2.2 mg/dL (1.6-2.3); PHOSPHOROUS 4.2 mg/dL (2.5-4.5)
[2017-05-05] MEDS: Budesonide 0.5 mg/2 ml Inhal Susp UD INH SCH (07:35)
[2017-05-05] MEDS: (Novolin R) Insulin Human Regular 100 units/ml vial SC SCH ×4 (08:21→22:30)
[2017-05-05 08:56] LABS: NEUTROPHIL 91 % (50-75); TOTAL CELLS COUNTED 100
[2017-05-05] MEDS: guaiFENesin 100 mg/5 ml Syrup UD PO PRN (09:31)
[2017-05-05] MEDS: Potassium Chloride 10 mEq ER Tab PO SCH ×2 (09:32→19:00)
[2017-05-05] MEDS: Pantoprazole 40 mg EC Tab PO SCH (09:32)
[2017-05-05] MEDS: Benzocaine/Menthol (Cepacol) Lozenge MT SCH ×5 (10:30→22:27)
--- NOTE | 2017-05-05 12:21 | CP.PCM.PN ---
Subjective - Date & Time of Evaluation Date of Evaluation: 05/05/17 Time of Evaluation: 09:30 - Subjective Subjective: the patient seen and examined Clinically improving Less cough and shortness of breath Afebrile No chest pain On antibiotics per ID Culture and sensitivity negative Elevated white count With the elevated pro calcitonin level Agree with IV fluids because of prerenal azotemia Objective - Vital Signs/Intake and Output Vital Signs (last 24 hours): Temp Pulse Resp BP Pulse Ox 97.9 F 104 H 18 139/76 92 L 05/05/17 08:00 05/05/17 10:59 05/05/17 10:59 05/05/17 10:59 05/05/17 07:59 Intake and Output: 05/05/17 05/05/17 06:59 18:59 Intake Total 240 480 Output Total 350 Balance -110 480 - Medications Medications: Current Medications Albuterol/Ipratropium (Duoneb 3 Mg/0.5 Mg (3 Ml) Ud) 3 ml INH RQ6 [facility] Last Admin: 05/05/17 07:35 Dose: 3 ml Benzocaine/Menthol (Cepacol Sore Throat) 1 pravin MT QID [facility] Last Admin: 05/05/17 10:31 Dose: 1 pravin Benzonatate (Tessalon Perles) 100 mg PO TID [facility] Last Admin: 05/05/17 09:32 Dose: 100 mg Budesonide (Pulmicort Respules) 0.5 mg INH RQ12 [facility] Last Admin: 05/05/17 07:35 Dose: 0.5 mg Guaifenesin (Robitussin) 100 mg PO Q4H PRN PRN Reason: Cough Last Admin: 05/05/17 09:31 Dose: 100 mg Heparin Sodium (Porcine) (Heparin) 5,000 units SC Q8 [facility] Last Admin: 05/05/17 06:14 Dose: 5,000 units Hydrochlorothiazide (Microzide) 12.5 mg PO DAILY [facility] Last Admin: 05/05/17 09:32 Dose: 12.5 mg Tigecycline 50 mg/ Sodium (Chloride) 100 mls @ 100 mls/hr IVPB Q12H [facility] Last Admin: 05/05/17 06:27 Dose: 100 mls/hr Micafungin Sodium 100 mg/ (Sodium Chloride) 100 mls @ 100 mls/hr IV Q24H [facility] Last Admin: 05/05/17 00:39 Dose: 100 mls/hr Aztreonam 500 mg/ Sodium (Chloride) 100 mls @ 100 mls/hr IVPB Q8H [facility] Last Admin: 05/05/17 08:22 Dose: 100 mls/hr Potassium Chloride (Potassium Chloride 10 Meq/100 Ml) 10 meq in 100 mls @ 100 mls/hr IVPB Q1H [facility] Stop: 05/05/17 13:59 Last Admin: 05/05/17 11:24 Dose: 100 mls/hr Insulin Human Regular (Novolin R) 0 unit SC ACHS [facility] PRN Reason: Protocol Last Admin: 05/05/17 08:21 Dose: 2 unit Lactulose (Enulose) 20 gm PO DAILY [facility] Last Admin: 05/05/17 09:34 Dose: Not Given Losartan Potassium (Cozaar) 100 mg PO DAILY [facility] Last Admin: 05/05/17 10:32 Dose: 100 mg Methylprednisolone (Solu-Medrol) 40 mg IV Q8H [facility] Last Admin: 05/05/17 09:31 Dose: 40 mg Nifedipine (Procardia) 10 mg PO DAILY [facility] Last Admin: 05/05/17 09:32 Dose: 10 mg Pantoprazole Sodium (Protonix Ec Tab) 40 mg PO DAILY [facility] Last Admin: 05/05/17 09:32 Dose: 40 mg Potassium Chloride (Klor-Con 10) 10 meq PO BID [facility] Last Admin: 05/05/17 09:32 Dose: 10 meq Potassium Chloride (K-Dur 20 Meq Er Tab) 40 meq PO ONCE ONE Stop: 05/06/17 10:48 - Labs Labs: 05/05/17 06:30 05/05/17 06:30 PT 10.9 SECONDS (9.7-12.2) 04/23/17 17:14 INR 1.0 04/23/17 17:14 APTT 25 SECONDS (21-34) 04/23/17 17:14 Assessment and Plan (1) Asthma exacerbation Status: Acute
[2017-05-05] MEDS ORDERED: Potassium Chloride 20 mEq ER Tab PO ONE (13:00)
--- NOTE | 2017-05-05 13:13 | CP.PCM.PN ---
Subjective - Date & Time of Evaluation Date of Evaluation: 05/05/17 Time of Evaluation: 13:12 - Subjective Subjective: SOB AND WHEEZING PERSISTS SPUTUM POSEUDOMONAS VS STABLE LUNGD WHEEZING AUDIBLE D/W ID TO CHANGE IV AB Objective - Vital Signs/Intake and Output Vital Signs (last 24 hours): Temp Pulse Resp BP Pulse Ox 98.4 F 92 H 19 135/78 95 05/05/17 12:00 05/05/17 11:59 05/05/17 11:59 05/05/17 11:59 05/05/17 12:00 Intake and Output: 05/05/17 05/05/17 11:59 23:59 Intake Total 480 Balance 480 - Medications Medications: Current Medications Albuterol/Ipratropium (Duoneb 3 Mg/0.5 Mg (3 Ml) Ud) 3 ml INH RQ6 [facility] Last Admin: 05/05/17 07:35 Dose: 3 ml Benzocaine/Menthol (Cepacol Sore Throat) 1 pravin MT QID [facility] Last Admin: 05/05/17 10:30 Dose: Not Given Benzonatate (Tessalon Perles) 100 mg PO TID [facility] Last Admin: 05/05/17 13:05 Dose: 100 mg Budesonide (Pulmicort Respules) 0.5 mg INH RQ12 [facility] Last Admin: 05/05/17 07:35 Dose: 0.5 mg Guaifenesin (Robitussin) 100 mg PO Q4H PRN PRN Reason: Cough Last Admin: 05/05/17 09:31 Dose: 100 mg Heparin Sodium (Porcine) (Heparin) 5,000 units SC Q8 [facility] Last Admin: 05/05/17 13:05 Dose: 5,000 units Hydrochlorothiazide (Microzide) 12.5 mg PO DAILY [facility] Last Admin: 05/05/17 09:32 Dose: 12.5 mg Tigecycline 50 mg/ Sodium (Chloride) 100 mls @ 100 mls/hr IVPB Q12H [facility] Last Admin: 05/05/17 06:27 Dose: 100 mls/hr Micafungin Sodium 100 mg/ (Sodium Chloride) 100 mls @ 100 mls/hr IV Q24H [facility] Last Admin: 05/05/17 00:39 Dose: 100 mls/hr Aztreonam 500 mg/ Sodium (Chloride) 100 mls @ 100 mls/hr IVPB Q8H [facility] Last Admin: 05/05/17 08:22 Dose: 100 mls/hr Potassium Chloride (Potassium Chloride 10 Meq/100 Ml) 10 meq in 100 mls @ 100 mls/hr IVPB Q1H [facility] Stop: 05/05/17 13:59 Last Admin: 05/05/17 12:53 Dose: 100 mls/hr Insulin Human Regular (Novolin R) 0 unit SC ACHS [facility] PRN Reason: Protocol Last Admin: 05/05/17 12:53 Dose: 3 unit Lactulose (Enulose) 20 gm PO DAILY [facility] Last Admin: 05/05/17 09:34 Dose: Not Given Losartan Potassium (Cozaar) 100 mg PO DAILY [facility] Last Admin: 05/05/17 10:32 Dose: 100 mg Methylprednisolone (Solu-Medrol) 40 mg IV Q8H [facility] Last Admin: 05/05/17 09:31 Dose: 40 mg Nifedipine (Procardia) 10 mg PO DAILY [facility] Last Admin: 05/05/17 09:32 Dose: 10 mg Pantoprazole Sodium (Protonix Ec Tab) 40 mg PO DAILY [facility] Last Admin: 05/05/17 09:32 Dose: 40 mg Potassium Chloride (Klor-Con 10) 10 meq PO BID [facility] Last Admin: 05/05/17 09:32 Dose: 10 meq - Labs Labs: 05/05/17 06:30 05/05/17 06:30 PT 10.9 SECONDS (9.7-12.2) 04/23/17 17:14 INR 1.0 04/23/17 17:14 APTT 25 SECONDS (21-34) 04/23/17 17:14 Assessment and Plan (1) HTN (hypertension) Status: Chronic (2) Asthma exacerbation Status: Acute (3) COPD exacerbation Status: Acute (4) GERD (gastroesophageal reflux disease) Status: Chronic (5) Hyperlipidemia Status: Chronic
--- NOTE | 2017-05-05 15:29 | CT ---
CT sinuses History: Sinusitis. Comparison: None available. Technique: Multiple contiguous axial images were performed through the paranasal sinuses without the use of intravenous contrast. Subsequently, sagittal and coronal reformatted images were obtained. This CT exam was performed using one or more of the following dose reduction techniques: Automated exposure control, adjustment of the mA and/or kV according to patient size, and/or use of iterative reconstruction technique. Findings: Moderate mucosal thickening and hypertrophy of the left maxillary sinus. Mild mucosal thickening and hypertrophy of the right maxillary sinus. Mild to moderate mucosal thickening and hypertrophy of the sphenoid sinus. Moderate mucosal thickening and hypertrophy of the ethmoid air cells. Partially calcified osteoma in the anterior left ethmoid air cells measuring 6 millimeters. Frontal sinus grossly preserved. Moderate mucosal thickening and hypertrophy of the middle and inferior nasal turbinates; left greater than right. Partial opacification of the left ostiomeatal unit. Mild nasal septal deviation. Mastoid air cells appear preserved. Mild cerebellar atrophy. Visualized orbits appear grossly preserved. Impression: Sinus mucosal disease as above.
--- NOTE | 2017-05-05 20:18 | CP.PCM.PN ---
Subjective - Date & Time of Evaluation Date of Evaluation: 05/05/17 Time of Evaluation: 20:18 - Subjective Subjective: PATIENT SEEN ON GENERAL MEDICAL FLOOR. pATIENT OFF BIPAP LESS COUGH. lESS SHORTNESS OF BREATH.. LABS REVIEWED wbc ELEVATED 21.5. HIGH PRO-CALCITONIN. SPUTUM POSITIVE FOR PSEUDOMONAS AERUGINOSA S- MEROPENEM, IMIPENEM. ( MDR ) CT SINUSES NOTED; PANSINUS MUCOSAL DISEASE Objective - Vital Signs/Intake and Output Vital Signs (last 24 hours): Temp Pulse Resp BP Pulse Ox 98.1 F 99 H 20 132/84 96 05/05/17 16:04 05/05/17 16:04 05/05/17 16:04 05/05/17 16:04 05/05/17 16:04 Intake and Output: 05/05/17 05/06/17 18:59 06:59 Intake Total 1020 Balance 1020 - Medications Medications: Current Medications Albuterol/Ipratropium (Duoneb 3 Mg/0.5 Mg (3 Ml) Ud) 3 ml INH RQ6 [facility] Last Admin: 05/05/17 20:16 Dose: 3 ml Benzocaine/Menthol (Cepacol Sore Throat) 1 pravin MT QID [facility] Last Admin: 05/05/17 19:05 Dose: Not Given Benzonatate (Tessalon Perles) 100 mg PO TID [facility] Last Admin: 05/05/17 19:02 Dose: 100 mg Budesonide (Pulmicort Respules) 0.5 mg INH RQ12 [facility] Last Admin: 05/05/17 07:35 Dose: 0.5 mg Guaifenesin (Robitussin) 100 mg PO Q4H PRN PRN Reason: Cough Last Admin: 05/05/17 09:31 Dose: 100 mg Heparin Sodium (Porcine) (Heparin) 5,000 units SC Q8 [facility] Last Admin: 05/05/17 13:05 Dose: 5,000 units Hydrochlorothiazide (Microzide) 12.5 mg PO DAILY [facility] Last Admin: 05/05/17 09:32 Dose: 12.5 mg Aztreonam 500 mg/ Dextrose 50 mls @ 100 mls/hr IVPB Q8H [facility] Insulin Human Regular (Novolin R) 0 unit SC ACHS [facility] PRN Reason: Protocol Last Admin: 05/05/17 18:54 Dose: Not Given Lactulose (Enulose) 20 gm PO DAILY [facility] Last Admin: 05/05/17 09:34 Dose: Not Given Losartan Potassium (Cozaar) 100 mg PO DAILY [facility] Last Admin: 05/05/17 10:32 Dose: 100 mg Methylprednisolone (Solu-Medrol) 40 mg IV Q8H [facility] Last Admin: 05/05/17 18:54 Dose: 40 mg Nifedipine (Procardia) 10 mg PO DAILY [facility] Last Admin: 05/05/17 09:32 Dose: 10 mg Pantoprazole Sodium (Protonix Ec Tab) 40 mg PO DAILY [facility] Last Admin: 05/05/17 09:32 Dose: 40 mg Potassium Chloride (Klor-Con 10) 10 meq PO BID [facility] Last Admin: 05/05/17 19:00 Dose: 10 meq - Labs Labs: 05/05/17 06:30 05/05/17 06:30 PT 10.9 SECONDS (9.7-12.2) 04/23/17 17:14 INR 1.0 04/23/17 17:14 APTT 25 SECONDS (21-34) 04/23/17 17:14 - Constitutional Appears: No Acute Distress - Head Exam Head Exam: NORMAL INSPECTION - Eye Exam Eye Exam: EOMI, PERRL - ENT Exam ENT Exam: Normal Oropharynx - Neck Exam Neck Exam: Normal Inspection. absent: Lymphadenopathy - Respiratory Exam Respiratory Exam: Wheezes (LESS WHEEZING.) - Cardiovascular Exam Cardiovascular Exam: REGULAR RHYTHM, +S1, +S2 - GI/Abdominal Exam GI & Abdominal Exam: Soft, Normal Bowel Sounds - Extremities Exam Extremities Exam: Pedal Edema (1+ EDEMA.). absent: Calf Tenderness - Neurological Exam Neurological Exam: Awake, CN II-XII Intact, Oriented x3 - Psychiatric Exam Psychiatric exam: Normal Mood - Skin Skin Exam: Normal Color, Warm Assessment and Plan (1) Asthma exacerbation Status: Acute (2) Bronchitis Status: Acute (3) HTN (hypertension) Status: Chronic (4) GERD (gastroesophageal reflux disease) Status: Chronic - Assessment and Plan (Free Text) Assessment: ASSESSMENT/PLAN : S/P RESPIRATORY FAILURE . EXACERBATION OF BRONCHIAL ASTHMA BRONCHIOLITIS /BRONCHOPULMONARY INFECTION +VE MDR -PSEUDOMONAS AERUGINOSA. SINUSITIS LEUKOCYTOSIS ? STEROIDS /BPI HYPERTENSION. GERD. PLan. DC IV TYGACIL 50MG IV Q 12HRLY 04/26/17. DC IV MYCAMINE 100MG IV QD DAILY. 05/01/17 * CONTINUE iv AZACTAM 500 MG EVERY 8 HOURLY DISCUSSED WITH THE STAFF (TEST DOSE TOLERATED ) * WILL GIVE A TEST DOSE OF IV MEROPENEM . IF TOLERATED WILL CONTINUE IV MEROPENEM.(DISCUSSED WITH PT ,PHARMACY.AND RN CUSTOMER SERVICE COORDINATOR- ) ASKED MICRO TO CHECK FOR S -OF AZACTAM,COLISTIN,AVYCAZ FOR ISOLATE SPUTUM PSEUDOMONAS-AEROGENOSA. ASPERGILLUS ANTIBODIES AND ANTIGEN.-P BLOOD CULTURES X 2 SETS STAT. 05/04/17-F/U PULMONARY F/U NOTED - CONTINUE NEBULIZER THERAPY. iv STEROIDS PER PMD/PULMONARY CONTACT ISOLATION.
[2017-05-05] MEDS ORDERED: Meropenem 500 MG in Sodium Chloride 0.9% 100 ML IVPB ONE (22:00)
[2017-05-06] MEDS: MethylPREDNISolone 40 mg Vial IV SCH ×3 (01:28→17:39)
[2017-05-06] MEDS: guaiFENesin 100 mg/5 ml Syrup UD PO PRN (01:30)
[2017-05-06] MEDS: Albuterol-Ipratrop 3 mg / 0.5 (3 ml) UD INH SCH ×4 (01:31→19:29)
[2017-05-06] MEDS: WATER IVPB SCH ×3 (01:32→17:41)
[2017-05-06] MEDS: DEXTROSE 5% IVPB SCH ×3 (01:32→17:41)
[2017-05-06] MEDS: AZTREONAM IVPB SCH ×3 (01:32→17:41)
[2017-05-06] MEDS: Budesonide 0.5 mg/2 ml Inhal Susp UD INH SCH ×2 (07:42→19:30)
[2017-05-06] MEDS: (Novolin R) Insulin Human Regular 100 units/ml vial SC SCH ×4 (08:08→22:11)
[2017-05-06] MEDS ORDERED: Potassium Chloride 20 mEq ER Tab PO ONE (10:47)
[2017-05-06] MEDS: Benzocaine/Menthol (Cepacol) Lozenge MT SCH ×4 (10:59→17:41)
[2017-05-06] MEDS: Potassium Chloride 10 mEq ER Tab PO SCH ×2 (10:59→17:39)
[2017-05-06] MEDS: Pantoprazole 40 mg EC Tab PO SCH (10:59)
--- NOTE | 2017-05-06 14:34 | CP.PCM.PN ---
Subjective - Date & Time of Evaluation Date of Evaluation: 05/06/17 Time of Evaluation: 14:33 - Subjective Subjective: CHIEF COMPLAINTS TODAY : SOB/WHEEZING MUCH IMPROVEMENT COUGH WITH WHITE EXP CXR NO INFILTRATE ROS. HEENT : N. Resp : No ,pleuritic CP ,or hemoptysis Cardio : No anginal CP, PND, orthopnea, palpitation GI : No abd.pain, n/v ,diarrhea or GI bleeding . INTERIOR PAINTER : No headache, vertigo, focal deficit. Musculoskel : No joint swelling , Derm : No rash Psych : Normal affect. Ext : No swelling ,calf pain PE. Pt. is alert awake in no distress. V.S As noted in the chart Head ,ear nose,throat and eyes : Normal. Neck : Supple with normal carotids. Lungs: WAI RONCHI Heart : S1 & S2 normal with S4. No murmur. Abd : Soft non tender with normal bowel sounds. Neuro : Moves all ext. with no localized deficit. Ext : No edema with intact pulses.Non tender calves Derm : No rashes or decubitus ulcer. LABS/RADIOLOGY: PSEUDOMONAS IN SPUTUM ASSESSMENT/PLAN : IV STEROIDS/AB AND NEB CURRENTLY NO ALLERGY TO IV AB Objective - Vital Signs/Intake and Output Vital Signs (last 24 hours): Temp Pulse Resp BP Pulse Ox 97.3 F L 108 H 20 148/84 97 05/06/17 08:53 05/06/17 12:46 05/06/17 08:53 05/06/17 08:53 05/06/17 08:53 Intake and Output: 05/06/17 05/06/17 11:59 23:59 Intake Total 300 Balance 300 - Medications Medications: Current Medications Albuterol/Ipratropium (Duoneb 3 Mg/0.5 Mg (3 Ml) Ud) 3 ml INH RQ6 [facility] Last Admin: 05/06/17 13:55 Dose: 3 ml Benzocaine/Menthol (Cepacol Sore Throat) 1 pravin MT QID [facility] Last Admin: 05/06/17 14:08 Dose: Not Given Benzonatate (Tessalon Perles) 100 mg PO TID [facility] Last Admin: 05/06/17 14:08 Dose: 100 mg Budesonide (Pulmicort Respules) 0.5 mg INH RQ12 [facility] Last Admin: 05/06/17 07:42 Dose: 0.5 mg Guaifenesin (Robitussin) 100 mg PO Q4H PRN PRN Reason: Cough Last Admin: 05/06/17 01:30 Dose: 100 mg Heparin Sodium (Porcine) (Heparin) 5,000 units SC Q8 [facility] Last Admin: 05/06/17 14:08 Dose: 5,000 units Hydrochlorothiazide (Microzide) 12.5 mg PO DAILY [facility] Last Admin: 05/06/17 10:59 Dose: 12.5 mg Aztreonam 500 mg/ Dextrose 50 mls @ 100 mls/hr IVPB Q8H [facility] Last Admin: 05/06/17 08:09 Dose: 100 mls/hr Insulin Human Regular (Novolin R) 0 unit SC ACHS [facility] PRN Reason: Protocol Last Admin: 05/06/17 12:43 Dose: 4 unit Lactulose (Enulose) 20 gm PO DAILY [facility] Last Admin: 05/06/17 11:00 Dose: Not Given Losartan Potassium (Cozaar) 100 mg PO DAILY [facility] Last Admin: 05/06/17 10:59 Dose: 100 mg Methylprednisolone (Solu-Medrol) 40 mg IV Q8H [facility] Last Admin: 05/06/17 10:59 Dose: 40 mg Nifedipine (Procardia) 10 mg PO DAILY [facility] Last Admin: 05/06/17 10:59 Dose: 10 mg Pantoprazole Sodium (Protonix Ec Tab) 40 mg PO DAILY [facility] Last Admin: 05/06/17 10:59 Dose: 40 mg Potassium Chloride (Klor-Con 10) 10 meq PO BID [facility] Last Admin: 05/06/17 10:59 Dose: 10 meq - Labs Labs: 05/05/17 06:30 05/05/17 06:30 PT 10.9 SECONDS (9.7-12.2) 04/23/17 17:14 INR 1.0 04/23/17 17:14 APTT 25 SECONDS (21-34) 04/23/17 17:14 Assessment and Plan (1) HTN (hypertension) Status: Chronic (2) Asthma exacerbation Status: Acute (3) COPD exacerbation Status: Acute (4) GERD (gastroesophageal reflux disease) Status: Chronic (5) Hyperlipidemia Status: Chronic
[2017-05-06] MEDS ORDERED: Meropenem 500 MG in Sodium Chloride 0.9% 100 ML IVPB SCH (22:00)
[2017-05-06] MEDS: Meropenem 500 MG in Sodium Chloride 0.9% 50 ML IVPB SCH (22:14)
--- NOTE | 2017-05-06 22:35 | CP.PCM.PN ---
Subjective - Date & Time of Evaluation Date of Evaluation: 05/06/17 Time of Evaluation: 22:35 - Subjective Subjective: AFEBRILE' VSS. PATIENT TOLERATED TEST DOSE OF iv MEROPENEM . CASE DISCUSSED WITH THE RN BEHAVIORAL HEALTH CLINICIAN. PATIENT TO CONTINUE MEROPENEM 500 MG EVERY 8 HOURLY. PATIENT TO CONTINUE iv aZACTAM 500 EVERY 8 HOURLY. AWAIT MICROBIOLOGY SENSITIVITY FOR MULTIPLE DRUGS ORDERED FOR PSEUDOMONAS AERUGINOSA. WILL ADJUST ANTIBIOTICS AFTER C/S OBTAINED. Objective - Vital Signs/Intake and Output Vital Signs (last 24 hours): Temp Pulse Resp BP Pulse Ox 97.9 F 95 H 20 110/68 95 05/06/17 16:40 05/06/17 16:40 05/06/17 16:40 05/06/17 16:40 05/06/17 16:40 - Medications Medications: Current Medications Albuterol/Ipratropium (Duoneb 3 Mg/0.5 Mg (3 Ml) Ud) 3 ml INH RQ6 [facility] Last Admin: 05/06/17 19:29 Dose: 3 ml Benzocaine/Menthol (Cepacol Sore Throat) 1 pravin MT QID [facility] Last Admin: 05/06/17 17:41 Dose: Not Given Benzonatate (Tessalon Perles) 100 mg PO TID [facility] Last Admin: 05/06/17 17:40 Dose: 100 mg Budesonide (Pulmicort Respules) 0.5 mg INH RQ12 [facility] Last Admin: 05/06/17 19:30 Dose: Not Given Guaifenesin (Robitussin) 100 mg PO Q4H PRN PRN Reason: Cough Last Admin: 05/06/17 01:30 Dose: 100 mg Hydrochlorothiazide (Microzide) 12.5 mg PO DAILY [facility] Last Admin: 05/06/17 10:59 Dose: 12.5 mg Aztreonam 500 mg/ Dextrose 50 mls @ 100 mls/hr IVPB Q8H [facility] Last Admin: 05/06/17 17:41 Dose: 100 mls/hr Meropenem 500 mg/ Sodium (Chloride) 50 mls @ 100 mls/hr IVPB Q8 [facility] Last Admin: 05/06/17 22:14 Dose: 100 mls/hr Insulin Human Regular (Novolin R) 0 unit SC ACHS IKE PRN Reason: Protocol Last Admin: 05/06/17 22:11 Dose: 2 unit Lactulose (Enulose) 20 gm PO DAILY [facility] Last Admin: 05/06/17 11:00 Dose: Not Given Losartan Potassium (Cozaar) 100 mg PO DAILY [facility] Last Admin: 05/06/17 10:59 Dose: 100 mg Methylprednisolone (Solu-Medrol) 40 mg IV Q8H [facility] Last Admin: 05/06/17 17:39 Dose: 40 mg Nifedipine (Procardia) 10 mg PO DAILY [facility] Last Admin: 05/06/17 10:59 Dose: 10 mg Pantoprazole Sodium (Protonix Ec Tab) 40 mg PO DAILY [facility] Last Admin: 05/06/17 10:59 Dose: 40 mg Potassium Chloride (Klor-Con 10) 10 meq PO BID [facility] Last Admin: 05/06/17 17:39 Dose: 10 meq - Labs Labs: 05/05/17 06:30 05/05/17 06:30 PT 10.9 SECONDS (9.7-12.2) 04/23/17 17:14 INR 1.0 04/23/17 17:14 APTT 25 SECONDS (21-34) 04/23/17 17:14 - Constitutional Appears: No Acute Distress - Head Exam Head Exam: NORMAL INSPECTION - Eye Exam Eye Exam: EOMI, PERRL - ENT Exam ENT Exam: Mucous Membranes Moist, Normal Oropharynx - Neck Exam Neck Exam: Normal Inspection - Respiratory Exam Respiratory Exam: Wheezes (BILATERALLY.) - Cardiovascular Exam Cardiovascular Exam: Tachycardia, REGULAR RHYTHM, +S1, +S2 - GI/Abdominal Exam GI & Abdominal Exam: Soft, Normal Bowel Sounds - Extremities Exam Extremities Exam: Normal Capillary Refill, Pedal Edema (2+). absent: Calf Tenderness - Neurological Exam Neurological Exam: Awake, CN II-XII Intact, Normal Gait, Oriented x3, Reflexes Normal - Psychiatric Exam Psychiatric exam: Normal Mood - Skin Skin Exam: Normal Color, Warm Assessment and Plan (1) Asthma exacerbation Assessment & Plan: CONTINUE iv ANTIBIOTICS ORDERED. fOLLOW-UP CULTURE SENSITIVITY TO ADJUST ANTIBIOTICS. CONTACT PRECAUTIONS PT WITH MDR PSEUDOMONAS AERUGINOSA Status: Acute (2) Bronchitis Status: Acute (3) HTN (hypertension) Status: Chronic (4) GERD (gastroesophageal reflux disease) Status: Chronic
[2017-05-07] MEDS: Albuterol-Ipratrop 3 mg / 0.5 (3 ml) UD INH SCH ×4 (01:41→19:37)
[2017-05-07] MEDS: MethylPREDNISolone 40 mg Vial IV SCH ×3 (01:42→18:55)
[2017-05-07] MEDS: AZTREONAM IVPB SCH ×2 (01:44→09:32)
[2017-05-07] MEDS: WATER IVPB SCH ×2 (01:44→09:32)
[2017-05-07] MEDS: guaiFENesin 100 mg/5 ml Syrup UD PO PRN (01:44)
[2017-05-07] MEDS: DEXTROSE 5% IVPB SCH ×2 (01:44→09:32)
[2017-05-07] MEDS: Meropenem 500 MG in Sodium Chloride 0.9% 50 ML IVPB SCH ×2 (05:35→13:49)
[2017-05-07 07:04] LABS: BASO % 0.1 % (0.0-2.0); HEMATOCRIT 38.6 % (34.0-47.0); LYMPH # 0.4 K/uL (1.0-4.3); LYMPH % 1.7 % (20.0-40.0); MEAN CELL VOLUME 97.1 fL (81.0-99.0); MEAN CORPUSCULAR HEMOGLOBIN 32.1 pg (27.0-31.0); MEAN CORPUSCULAR HGB CONC 33.1 g/dL (33.0-37.0); MEAN PLATELET VOLUME 10.7 fL (7.2-11.7); MONO # 0.6 K/uL (0.0-0.8); MONO % 2.9 % (0.0-10.0); PLATELET COUNT 182 K/uL (130-400); WHITE BLOOD COUNT 21.3 K/uL (4.8-10.8)
[2017-05-07] MEDS: Budesonide 0.5 mg/2 ml Inhal Susp UD INH SCH ×2 (07:34→19:37)
[2017-05-07 07:37] LABS: ALB/GLOB RATIO 1.3 (1.0-2.1); BILIRUBIN,DIRECT 0.5 mg/dL (0.0-0.4); BILIRUBIN,TOTAL 0.8 mg/dL (0.2-1.3); CALCIUM 7.7 mg/dl (8.6-10.4); POTASSIUM 4.1 mmol/L (3.6-5.2); TOTAL PROTEIN 4.7 g/dL (6.3-8.3)
[2017-05-07] MEDS: (Novolin R) Insulin Human Regular 100 units/ml vial SC SCH ×4 (08:42→22:06)
[2017-05-07 09:18] LABS: NEUTROPHIL 96 % (50-75); TOTAL CELLS COUNTED 100
[2017-05-07] MEDS: Pantoprazole 40 mg EC Tab PO SCH (09:33)
[2017-05-07] MEDS: Potassium Chloride 10 mEq ER Tab PO SCH ×2 (09:33→18:55)
[2017-05-07] MEDS: Benzocaine/Menthol (Cepacol) Lozenge MT SCH ×4 (09:34→22:02)
--- NOTE | 2017-05-07 12:42 | CP.PCM.PN ---
Subjective - Date & Time of Evaluation Date of Evaluation: 05/07/17 Time of Evaluation: 08:00 - Subjective Subjective: patient seen examined less cough and shortness of breath but still wheezing and congested Afebrile No chest pain On antibiotics Worsening renal function Objective - Vital Signs/Intake and Output Vital Signs (last 24 hours): Temp Pulse Resp BP Pulse Ox 97.6 F 100 H 20 140/80 96 05/07/17 07:50 05/07/17 08:00 05/07/17 07:50 05/07/17 07:50 05/07/17 07:50 Intake and Output: 05/07/17 05/07/17 06:59 18:59 Intake Total 390 Balance 390 - Medications Medications: Current Medications Albuterol/Ipratropium (Duoneb 3 Mg/0.5 Mg (3 Ml) Ud) 3 ml INH RQ6 [facility] Last Admin: 05/07/17 07:34 Dose: 3 ml Benzocaine/Menthol (Cepacol Sore Throat) 1 pravin MT QID [facility] Last Admin: 05/07/17 09:34 Dose: Not Given Benzonatate (Tessalon Perles) 100 mg PO TID [facility] Last Admin: 05/07/17 09:33 Dose: 100 mg Budesonide (Pulmicort Respules) 0.5 mg INH RQ12 [facility] Last Admin: 05/07/17 07:34 Dose: 0.5 mg Guaifenesin (Robitussin) 100 mg PO Q4H PRN PRN Reason: Cough Last Admin: 05/07/17 01:44 Dose: 100 mg Hydrochlorothiazide (Microzide) 12.5 mg PO DAILY [facility] Last Admin: 05/07/17 09:33 Dose: 12.5 mg Aztreonam 500 mg/ Dextrose 50 mls @ 100 mls/hr IVPB Q8H [facility] Last Admin: 05/07/17 09:32 Dose: 100 mls/hr Meropenem 500 mg/ Sodium (Chloride) 50 mls @ 100 mls/hr IVPB Q8 [facility] Last Admin: 05/07/17 05:35 Dose: 100 mls/hr Insulin Human Regular (Novolin R) 0 unit SC ACHS IKE PRN Reason: Protocol Last Admin: 05/07/17 11:29 Dose: 1 unit Lactulose (Enulose) 20 gm PO DAILY [facility] Last Admin: 05/07/17 09:34 Dose: Not Given Losartan Potassium (Cozaar) 100 mg PO DAILY [facility] Last Admin: 05/07/17 09:33 Dose: 100 mg Methylprednisolone (Solu-Medrol) 40 mg IV Q8H [facility] Last Admin: 05/07/17 09:32 Dose: 40 mg Nifedipine (Procardia) 10 mg PO DAILY [facility] Last Admin: 05/07/17 09:33 Dose: 10 mg Pantoprazole Sodium (Protonix Ec Tab) 40 mg PO DAILY [facility] Last Admin: 05/07/17 09:33 Dose: 40 mg Potassium Chloride (Klor-Con 10) 10 meq PO BID [facility] Last Admin: 05/07/17 09:33 Dose: 10 meq - Labs Labs: 05/07/17 06:47 05/07/17 06:47 PT 10.9 SECONDS (9.7-12.2) 04/23/17 17:14 INR 1.0 04/23/17 17:14 APTT 25 SECONDS (21-34) 04/23/17 17:14 - Head Exam Head Exam: ATRAUMATIC, NORMOCEPHALIC - Eye Exam Eye Exam: Normal appearance - ENT Exam ENT Exam: Mucous Membranes Moist - Respiratory Exam Respiratory Exam: Rhonchi - Cardiovascular Exam Cardiovascular Exam: REGULAR RHYTHM - GI/Abdominal Exam GI & Abdominal Exam: Soft, Normal Bowel Sounds Assessment and Plan (1) Asthma exacerbation Assessment & Plan: taper IV steroids Consider to stop diuretic Continue antibiotics per ID Continue nebulizer treatment Elevated white count partly secondary to steroid Status: Acute
--- NOTE | 2017-05-07 13:40 | CP.PCM.PN ---
Subjective - Date & Time of Evaluation Date of Evaluation: 05/07/17 Time of Evaluation: 13:40 - Subjective Subjective: CHIEF COMPLAINTS TODAY : SOB/WHEEZING , MUCH IMPROVEMENT COUGH WITH WHITE EXP CXR NO INFILTRATE ROS. HEENT : N. Resp : No ,pleuritic CP ,or hemoptysis Cardio : No anginal CP, PND, orthopnea, palpitation GI : No abd.pain, n/v ,diarrhea or GI bleeding . 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 Musculoskel : No joint swelling , Derm : No rash Psych : Normal affect. Ext : No swelling ,calf pain PE. Pt. is alert awake in no distress. V.S As noted in the chart Head ,ear nose,throat and eyes : Normal. Neck : Supple with normal carotids. Lungs: WAI RONCHI Heart : S1 & S2 normal with S4. No murmur. Abd : Soft non tender with normal bowel sounds. Neuro : Moves all ext. with no localized deficit. Ext : No edema with intact pulses.Non tender calves Derm : No rashes or decubitus ulcer. LABS/RADIOLOGY: PSEUDOMONAS IN SPUTUM ASSESSMENT/PLAN : IV STEROIDS/AB AND NEB CURRENTLY NO ALLERGY TO IV AB cr 1.4 Objective - Vital Signs/Intake and Output Vital Signs (last 24 hours): Temp Pulse Resp BP Pulse Ox 97.6 F 100 H 20 140/80 96 05/07/17 07:50 05/07/17 08:00 05/07/17 07:50 05/07/17 07:50 05/07/17 07:50 Intake and Output: 05/07/17 05/07/17 11:59 23:59 Intake Total 390 Balance 390 - Medications Medications: Current Medications Albuterol/Ipratropium (Duoneb 3 Mg/0.5 Mg (3 Ml) Ud) 3 ml INH RQ6 [facility] Last Admin: 05/07/17 13:23 Dose: 3 ml Benzocaine/Menthol (Cepacol Sore Throat) 1 pravin MT QID [facility] Last Admin: 05/07/17 09:34 Dose: Not Given Benzonatate (Tessalon Perles) 100 mg PO TID [facility] Last Admin: 05/07/17 09:33 Dose: 100 mg Budesonide (Pulmicort Respules) 0.5 mg INH RQ12 [facility] Last Admin: 05/07/17 07:34 Dose: 0.5 mg Guaifenesin (Robitussin) 100 mg PO Q4H PRN PRN Reason: Cough Last Admin: 05/07/17 01:44 Dose: 100 mg Hydrochlorothiazide (Microzide) 12.5 mg PO DAILY [facility] Last Admin: 05/07/17 09:33 Dose: 12.5 mg Aztreonam 500 mg/ Dextrose 50 mls @ 100 mls/hr IVPB Q8H [facility] Last Admin: 05/07/17 09:32 Dose: 100 mls/hr Meropenem 500 mg/ Sodium (Chloride) 50 mls @ 100 mls/hr IVPB Q8 [facility] Last Admin: 05/07/17 05:35 Dose: 100 mls/hr Insulin Human Regular (Novolin R) 0 unit SC ACHS IKE PRN Reason: Protocol Last Admin: 05/07/17 11:29 Dose: 1 unit Lactulose (Enulose) 20 gm PO DAILY [facility] Last Admin: 05/07/17 09:34 Dose: Not Given Losartan Potassium (Cozaar) 100 mg PO DAILY [facility] Last Admin: 05/07/17 09:33 Dose: 100 mg Methylprednisolone (Solu-Medrol) 40 mg IV Q8H [facility] Last Admin: 05/07/17 09:32 Dose: 40 mg Nifedipine (Procardia) 10 mg PO DAILY [facility] Last Admin: 05/07/17 09:33 Dose: 10 mg Pantoprazole Sodium (Protonix Ec Tab) 40 mg PO DAILY [facility] Last Admin: 05/07/17 09:33 Dose: 40 mg Potassium Chloride (Klor-Con 10) 10 meq PO BID [facility] Last Admin: 05/07/17 09:33 Dose: 10 meq - Labs Labs: 05/07/17 06:47 05/07/17 06:47 PT 10.9 SECONDS (9.7-12.2) 04/23/17 17:14 INR 1.0 04/23/17 17:14 APTT 25 SECONDS (21-34) 04/23/17 17:14 Assessment and Plan (1) HTN (hypertension) Status: Chronic (2) Asthma exacerbation Status: Acute (3) COPD exacerbation Status: Acute (4) GERD (gastroesophageal reflux disease) Status: Chronic (5) Hyperlipidemia Status: Chronic
--- NOTE | 2017-05-07 13:43 | CP.PCM.PN ---
Subjective - Date & Time of Evaluation Date of Evaluation: 05/07/17 Time of Evaluation: 13:43 - Subjective Subjective: AFEBRILE FEELING MUCH BETTER. LESS COUGH lESS CONGESTION. SINUSES FEELS BETTER. LABS REVIEWED MICROBIOLOGY NOTED. PSEUDOMONAS AERUGINOSA S- MEROPENEM, COLISTIN, AVYCAZ,AZACTAM. ANTIBIOTICS ADJUSTED. DC IV aZACTAM STARTED ON MEROPENEM 500 MG EVERY 8 HOURLY 05/06/18 PULMONARY CONCERNED ABOUT RENAL FUNCTIONS. WILL FOLLOW bmp IN A.M. Objective - Vital Signs/Intake and Output Vital Signs (last 24 hours): Temp Pulse Resp BP Pulse Ox 97.6 F 100 H 20 140/80 96 05/07/17 07:50 05/07/17 08:00 05/07/17 07:50 05/07/17 07:50 05/07/17 07:50 Intake and Output: 05/07/17 05/07/17 06:59 18:59 Intake Total 390 Balance 390 - Medications Medications: Current Medications Albuterol/Ipratropium (Duoneb 3 Mg/0.5 Mg (3 Ml) Ud) 3 ml INH RQ6 [facility] Last Admin: 05/07/17 13:23 Dose: 3 ml Benzocaine/Menthol (Cepacol Sore Throat) 1 pravin MT QID [facility] Last Admin: 05/07/17 09:34 Dose: Not Given Benzonatate (Tessalon Perles) 100 mg PO TID [facility] Last Admin: 05/07/17 09:33 Dose: 100 mg Budesonide (Pulmicort Respules) 0.5 mg INH RQ12 [facility] Last Admin: 05/07/17 07:34 Dose: 0.5 mg Guaifenesin (Robitussin) 100 mg PO Q4H PRN PRN Reason: Cough Last Admin: 05/07/17 01:44 Dose: 100 mg Hydrochlorothiazide (Microzide) 12.5 mg PO DAILY [facility] Last Admin: 05/07/17 09:33 Dose: 12.5 mg Aztreonam 500 mg/ Dextrose 50 mls @ 100 mls/hr IVPB Q8H [facility] Last Admin: 05/07/17 09:32 Dose: 100 mls/hr Meropenem 500 mg/ Sodium (Chloride) 50 mls @ 100 mls/hr IVPB Q8 [facility] Last Admin: 05/07/17 05:35 Dose: 100 mls/hr Insulin Human Regular (Novolin R) 0 unit SC ACHS [facility] PRN Reason: Protocol Last Admin: 05/07/17 11:29 Dose: 1 unit Lactulose (Enulose) 20 gm PO DAILY [facility] Last Admin: 05/07/17 09:34 Dose: Not Given Losartan Potassium (Cozaar) 100 mg PO DAILY [facility] Last Admin: 05/07/17 09:33 Dose: 100 mg Methylprednisolone (Solu-Medrol) 40 mg IV Q8H [facility] Last Admin: 05/07/17 09:32 Dose: 40 mg Nifedipine (Procardia) 10 mg PO DAILY [facility] Last Admin: 05/07/17 09:33 Dose: 10 mg Pantoprazole Sodium (Protonix Ec Tab) 40 mg PO DAILY [facility] Last Admin: 05/07/17 09:33 Dose: 40 mg Potassium Chloride (Klor-Con 10) 10 meq PO BID [facility] Last Admin: 05/07/17 09:33 Dose: 10 meq - Labs Labs: 05/07/17 06:47 05/07/17 06:47 PT 10.9 SECONDS (9.7-12.2) 04/23/17 17:14 INR 1.0 04/23/17 17:14 APTT 25 SECONDS (21-34) 04/23/17 17:14 - Constitutional Appears: No Acute Distress - Head Exam Head Exam: NORMAL INSPECTION - Eye Exam Eye Exam: EOMI, PERRL - ENT Exam ENT Exam: Mucous Membranes Moist, Normal Oropharynx - Neck Exam Neck Exam: Normal Inspection - Respiratory Exam Respiratory Exam: Wheezes (LESS) - Cardiovascular Exam Cardiovascular Exam: Tachycardia, REGULAR RHYTHM, +S1, +S2 - GI/Abdominal Exam GI & Abdominal Exam: Soft, Normal Bowel Sounds - Extremities Exam Extremities Exam: Normal Capillary Refill, Pedal Edema (1+). absent: Calf Tenderness - Neurological Exam Neurological Exam: Awake, CN II-XII Intact, Normal Gait, Oriented x3, Reflexes Normal - Psychiatric Exam Psychiatric exam: Normal Affect, Normal Mood - Skin Skin Exam: Normal Color, Warm Assessment and Plan (1) Asthma exacerbation Assessment & Plan: MICROBIOLOGY NOTED. PSEUDOMONAS AERUGINOSA S- MEROPENEM, COLISTIN, AVYCAZ,AZACTAM. ANTIBIOTICS ADJUSTED. DC IV aZACTAM 05/07 STARTED ON MEROPENEM 500 MG EVERY 8 HOURLY 05/06/18 Status: Acute (2) Bronchitis Status: Acute (3) HTN (hypertension) Status: Chronic (4) GERD (gastroesophageal reflux disease) Status: Chronic
[2017-05-07] MEDS: Meropenem 500 MG in Sodium Chloride 0.9% 100 ML IVPB SCH (22:33)
[2017-05-08] MEDS: guaiFENesin 100 mg/5 ml Syrup UD PO PRN (00:01)
[2017-05-08] MEDS: MethylPREDNISolone 40 mg Vial IV SCH ×3 (00:40→17:52)
[2017-05-08] MEDS: Albuterol-Ipratrop 3 mg / 0.5 (3 ml) UD INH SCH ×4 (01:44→19:12)
[2017-05-08] MEDS: Meropenem 500 MG in Sodium Chloride 0.9% 100 ML IVPB SCH ×3 (05:42→21:36)
[2017-05-08 06:37] LABS: HEMATOCRIT 37.1 % (34.0-47.0); MEAN CELL VOLUME 96.2 fL (81.0-99.0); MEAN CORPUSCULAR HEMOGLOBIN 32.3 pg (27.0-31.0); MEAN CORPUSCULAR HGB CONC 33.6 g/dL (33.0-37.0); MEAN PLATELET VOLUME 10.4 fL (7.2-11.7); RED CELL DISTRIBUTION WIDTH 14.4 % (11.5-14.5); WHITE BLOOD COUNT 20.1 K/uL (4.8-10.8)
[2017-05-08 06:59] LABS: POTASSIUM 3.3 mmol/L (3.6-5.2)
[2017-05-08 07:00] LABS: CALCIUM 7.6 mg/dl (8.6-10.4)
[2017-05-08] MEDS: Budesonide 0.5 mg/2 ml Inhal Susp UD INH SCH ×2 (07:25→19:12)
[2017-05-08] MEDS: (Novolin R) Insulin Human Regular 100 units/ml vial SC SCH ×4 (08:09→21:22)
[2017-05-08] MEDS: Benzocaine/Menthol (Cepacol) Lozenge MT SCH ×5 (09:13→21:25)
[2017-05-08] MEDS: Pantoprazole 40 mg EC Tab PO SCH (09:14)
[2017-05-08] MEDS: Potassium Chloride 10 mEq ER Tab PO SCH ×2 (09:14→17:52)
--- NOTE | 2017-05-08 13:20 | CP.PCM.PN ---
Subjective - Date & Time of Evaluation Date of Evaluation: 05/08/17 Time of Evaluation: 13:19 - Subjective Subjective: CHIEF COMPLAINTS TODAY : SOB/WHEEZING , MUCH IMPROVEMENT COUGH WITH WHITE EXP CXR NO INFILTRATE ROS. HEENT : N. Resp : No ,pleuritic CP ,or hemoptysis Cardio : No anginal CP, PND, orthopnea, palpitation GI : No abd.pain, n/v ,diarrhea or GI bleeding . 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 Musculoskel : No joint swelling , Derm : No rash Psych : Normal affect. Ext : No swelling ,calf pain PE. Pt. is alert awake in no distress. V.S As noted in the chart Head ,ear nose,throat and eyes : Normal. Neck : Supple with normal carotids. Lungs: WAI RONCHI Heart : S1 & S2 normal with S4. No murmur. Abd : Soft non tender with normal bowel sounds. Neuro : Moves all ext. with no localized deficit. Ext : No edema with intact pulses.Non tender calves Derm : No rashes or decubitus ulcer. LABS/RADIOLOGY: PSEUDOMONAS IN SPUTUM ASSESSMENT/PLAN : IV STEROIDS/AB AND NEB CURRENTLY NO ALLERGY TO IV AB Objective - Vital Signs/Intake and Output Vital Signs (last 24 hours): Temp Pulse Resp BP Pulse Ox 98.1 F 101 H 20 148/89 96 05/08/17 01:39 05/08/17 07:07 05/07/17 23:20 05/07/17 23:20 05/07/17 23:20 Intake and Output: 05/08/17 05/08/17 11:59 23:59 Intake Total 340 Balance 340 - Medications Medications: Current Medications Albuterol/Ipratropium (Duoneb 3 Mg/0.5 Mg (3 Ml) Ud) 3 ml INH RQ6 [facility] Last Admin: 05/08/17 13:13 Dose: 3 ml Benzocaine/Menthol (Cepacol Sore Throat) 1 pravin MT QID [facility] Last Admin: 05/08/17 09:14 Dose: 1 pravin Benzonatate (Tessalon Perles) 100 mg PO TID [facility] Last Admin: 05/08/17 09:14 Dose: 100 mg Budesonide (Pulmicort Respules) 0.5 mg INH RQ12 [facility] Last Admin: 05/08/17 07:25 Dose: 0.5 mg Guaifenesin (Robitussin) 100 mg PO Q4H PRN PRN Reason: Cough Last Admin: 05/08/17 00:01 Dose: 100 mg Hydrochlorothiazide (Microzide) 12.5 mg PO DAILY [facility] Last Admin: 05/08/17 09:14 Dose: 12.5 mg Meropenem 500 mg/ Sodium (Chloride) 100 mls @ 100 mls/hr IVPB Q8 [facility] Last Admin: 05/08/17 05:42 Dose: 100 mls/hr Insulin Human Regular (Novolin R) 0 unit SC ACHS [facility] PRN Reason: Protocol Last Admin: 05/08/17 12:18 Dose: 8 unit Lactulose (Enulose) 20 gm PO DAILY [facility] Last Admin: 05/08/17 09:15 Dose: Not Given Losartan Potassium (Cozaar) 100 mg PO DAILY [facility] Last Admin: 05/08/17 09:14 Dose: 100 mg Methylprednisolone (Solu-Medrol) 40 mg IV Q8H [facility] Last Admin: 05/08/17 09:14 Dose: 40 mg Nifedipine (Procardia) 10 mg PO DAILY [facility] Last Admin: 05/08/17 09:14 Dose: 10 mg Pantoprazole Sodium (Protonix Ec Tab) 40 mg PO DAILY [facility] Last Admin: 05/08/17 09:14 Dose: 40 mg Potassium Chloride (Klor-Con 10) 10 meq PO BID [facility] Last Admin: 05/08/17 09:14 Dose: 10 meq - Labs Labs: 05/08/17 06:23 05/08/17 06:23 PT 10.9 SECONDS (9.7-12.2) 04/23/17 17:14 INR 1.0 04/23/17 17:14 APTT 25 SECONDS (21-34) 04/23/17 17:14 Assessment and Plan (1) HTN (hypertension) Status: Chronic (2) Asthma exacerbation Status: Acute (3) COPD exacerbation Status: Acute (4) GERD (gastroesophageal reflux disease) Status: Chronic (5) Hyperlipidemia Status: Chronic
--- NOTE | 2017-05-08 14:55 | CP.PCM.PN ---
Subjective - Date & Time of Evaluation Date of Evaluation: 05/08/17 Time of Evaluation: 10:00 - Subjective Subjective: patient seen and examined Breathing much better Still complaining of cough Afebrile Ambulatory Objective - Vital Signs/Intake and Output Vital Signs (last 24 hours): Temp Pulse Resp BP Pulse Ox 98.1 F 101 H 20 148/89 96 05/08/17 01:39 05/08/17 07:07 05/07/17 23:20 05/07/17 23:20 05/07/17 23:20 Intake and Output: 05/08/17 05/08/17 06:59 18:59 Intake Total 340 Balance 340 - Medications Medications: Current Medications Albuterol/Ipratropium (Duoneb 3 Mg/0.5 Mg (3 Ml) Ud) 3 ml INH RQ6 [facility] Last Admin: 05/08/17 13:13 Dose: 3 ml Benzocaine/Menthol (Cepacol Sore Throat) 1 pravin MT QID [facility] Last Admin: 05/08/17 13:33 Dose: Not Given Benzonatate (Tessalon Perles) 100 mg PO TID [facility] Last Admin: 05/08/17 13:33 Dose: 100 mg Budesonide (Pulmicort Respules) 0.5 mg INH RQ12 [facility] Last Admin: 05/08/17 07:25 Dose: 0.5 mg Guaifenesin (Robitussin) 100 mg PO Q4H PRN PRN Reason: Cough Last Admin: 05/08/17 00:01 Dose: 100 mg Hydrochlorothiazide (Microzide) 12.5 mg PO DAILY [facility] Last Admin: 05/08/17 09:14 Dose: 12.5 mg Meropenem 500 mg/ Sodium (Chloride) 100 mls @ 100 mls/hr IVPB Q8 [facility] Last Admin: 05/08/17 13:33 Dose: 100 mls/hr Insulin Human Regular (Novolin R) 0 unit SC ACHS [facility] PRN Reason: Protocol Last Admin: 05/08/17 12:18 Dose: 8 unit Lactulose (Enulose) 20 gm PO DAILY [facility] Last Admin: 05/08/17 09:15 Dose: Not Given Losartan Potassium (Cozaar) 100 mg PO DAILY [facility] Last Admin: 05/08/17 09:14 Dose: 100 mg Methylprednisolone (Solu-Medrol) 40 mg IV Q8H [facility] Last Admin: 05/08/17 09:14 Dose: 40 mg Nifedipine (Procardia) 10 mg PO DAILY [facility] Last Admin: 05/08/17 09:14 Dose: 10 mg Pantoprazole Sodium (Protonix Ec Tab) 40 mg PO DAILY [facility] Last Admin: 05/08/17 09:14 Dose: 40 mg Potassium Chloride (Klor-Con 10) 10 meq PO BID [facility] Last Admin: 05/08/17 09:14 Dose: 10 meq - Labs Labs: 05/08/17 06:23 05/08/17 06:23 PT 10.9 SECONDS (9.7-12.2) 04/23/17 17:14 INR 1.0 04/23/17 17:14 APTT 25 SECONDS (21-34) 04/23/17 17:14 - Head Exam Head Exam: ATRAUMATIC, NORMOCEPHALIC - ENT Exam ENT Exam: Mucous Membranes Moist - Neck Exam Neck Exam: Normal Inspection - Respiratory Exam Respiratory Exam: Rhonchi - Cardiovascular Exam Cardiovascular Exam: REGULAR RHYTHM - GI/Abdominal Exam GI & Abdominal Exam: Soft, Normal Bowel Sounds - Extremities Exam Extremities Exam: Normal Inspection - Neurological Exam Neurological Exam: Alert Assessment and Plan (1) Asthma exacerbation Assessment & Plan: continue antibiotics Taper IV steroids Nebulizer treatment Antitussive Status: Acute
--- NOTE | 2017-05-08 23:17 | CP.PCM.PN ---
Subjective - Date & Time of Evaluation Date of Evaluation: 05/08/17 Time of Evaluation: 23:17 - Subjective Subjective: CHIEF COMPLAINTS TODAY : afebrile COUGH IMPROVED LESS wheezing ROS. HEENT : N. Resp : No ,pleuritic CP ,or hemoptysis Cardio : No anginal CP, PND, orthopnea, palpitation GI : No abd.pain, n/v ,diarrhea or GI bleeding . 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 Musculoskel : No joint swelling , Derm : No rash Psych : Normal affect. Ext : No swelling ,calf pain PE. Pt. is alert awake in no distress. V.S As noted in the chart Head ,ear nose,throat and eyes : Normal. Neck : Supple with normal carotids. Lungs: WAI/EXPIRATORY WHEEZE. Heart : S1 & S2 normal with S4. No murmur. Abd : Soft non tender with normal bowel sounds. Neuro : Moves all ext. with no localized deficit. Ext : No edema with intact pulses.Non tender calves Derm : No rashes or decubitus ulcer. LABS/RADIOLOGY: LABS REVIEWED ASSESSMENT/PLAN : EXACERBATION OF BRONCHIAL ASTHMA BRONCHPULMONARY INFECTION +VE PSEUDOMONAS (MDR )S-MEROPENEM PANSINUSITIS HYPERTENSION. GERD. PLan. CONTINUE IV ABX -IV MEROPENEM 500MG IV Q 8HRLY 05/07/17. PULMONARY TOILET. IV STEROIDS. ANTITUSSIVE. Objective - Vital Signs/Intake and Output Vital Signs (last 24 hours): Temp Pulse Resp BP Pulse Ox 98.2 F 98 H 20 132/74 97 05/08/17 15:00 05/08/17 16:00 05/08/17 15:00 05/08/17 15:00 05/08/17 15:00 - Medications Medications: Current Medications Albuterol/Ipratropium (Duoneb 3 Mg/0.5 Mg (3 Ml) Ud) 3 ml INH RQ6 [facility] Last Admin: 05/08/17 19:12 Dose: 3 ml Benzocaine/Menthol (Cepacol Sore Throat) 1 pravin MT QID [facility] Last Admin: 05/08/17 21:25 Dose: Not Given Benzonatate (Tessalon Perles) 100 mg PO TID [facility] Last Admin: 05/08/17 17:52 Dose: 100 mg Budesonide (Pulmicort Respules) 0.5 mg INH RQ12 [facility] Last Admin: 05/08/17 19:12 Dose: 0.5 mg Guaifenesin (Robitussin) 100 mg PO Q4H PRN PRN Reason: Cough Last Admin: 05/08/17 00:01 Dose: 100 mg Hydrochlorothiazide (Microzide) 12.5 mg PO DAILY [facility] Last Admin: 05/08/17 09:14 Dose: 12.5 mg Meropenem 500 mg/ Sodium (Chloride) 100 mls @ 100 mls/hr IVPB Q8 IKE Last Admin: 05/08/17 21:36 Dose: 100 mls/hr Insulin Human Regular (Novolin R) 0 unit SC ACHS IKE PRN Reason: Protocol Last Admin: 05/08/17 21:22 Dose: Not Given Lactulose (Enulose) 20 gm PO DAILY [facility] Last Admin: 05/08/17 09:15 Dose: Not Given Losartan Potassium (Cozaar) 100 mg PO DAILY [facility] Last Admin: 05/08/17 09:14 Dose: 100 mg Methylprednisolone (Solu-Medrol) 40 mg IV Q8H IKE Last Admin: 05/08/17 17:52 Dose: 40 mg Nifedipine (Procardia) 10 mg PO DAILY [facility] Last Admin: 05/08/17 09:14 Dose: 10 mg Pantoprazole Sodium (Protonix Ec Tab) 40 mg PO DAILY [facility] Last Admin: 05/08/17 09:14 Dose: 40 mg Potassium Chloride (Klor-Con 10) 10 meq PO BID [facility] Last Admin: 05/08/17 17:52 Dose: 10 meq - Labs Labs: 05/08/17 06:23 05/08/17 06:23 PT 10.9 SECONDS (9.7-12.2) 04/23/17 17:14 INR 1.0 04/23/17 17:14 APTT 25 SECONDS (21-34) 04/23/17 17:14 Assessment and Plan (1) Asthma exacerbation Status: Acute (2) Bronchitis Status: Acute (3) HTN (hypertension) Status: Chronic (4) GERD (gastroesophageal reflux disease) Status: Chronic
[2017-05-09] MEDS: MethylPREDNISolone 40 mg Vial IV SCH ×3 (01:56→17:55)
[2017-05-09] MEDS: guaiFENesin 100 mg/5 ml Syrup UD PO PRN ×2 (01:57→06:17)
[2017-05-09] MEDS: Albuterol-Ipratrop 3 mg / 0.5 (3 ml) UD INH SCH ×4 (02:51→19:07)
[2017-05-09] MEDS: Meropenem 500 MG in Sodium Chloride 0.9% 100 ML IVPB SCH ×3 (05:37→21:35)
[2017-05-09] MEDS: Budesonide 0.5 mg/2 ml Inhal Susp UD INH SCH ×2 (07:15→19:07)
[2017-05-09] MEDS: (Novolin R) Insulin Human Regular 100 units/ml vial SC SCH ×4 (08:35→22:57)
[2017-05-09] MEDS: Potassium Chloride 10 mEq ER Tab PO SCH ×2 (09:26→17:56)
[2017-05-09] MEDS: Pantoprazole 40 mg EC Tab PO SCH (09:26)
[2017-05-09] MEDS: Benzocaine/Menthol (Cepacol) Lozenge MT SCH ×4 (09:27→21:34)
--- NOTE | 2017-05-09 12:24 | CP.PCM.PCO ---
Physician Communication Note - Physician Communication Note Physician Communication Note: total of 10 days of merum as per Dr. Langford
--- NOTE | 2017-05-09 13:22 | CP.PCM.PN ---
Subjective - Date & Time of Evaluation Date of Evaluation: 05/09/17 Time of Evaluation: 13:22 - Subjective Subjective: CHIEF COMPLAINTS TODAY : SOB/WHEEZING , MUCH IMPROVEMENT COUGH WITH WHITE EXP CXR NO INFILTRATE ROS. HEENT : N. Resp : No ,pleuritic CP ,or hemoptysis Cardio : No anginal CP, PND, orthopnea, palpitation GI : No abd.pain, n/v ,diarrhea or GI bleeding . 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 Musculoskel : No joint swelling , Derm : No rash Psych : Normal affect. Ext : No swelling ,calf pain PE. Pt. is alert awake in no distress. V.S As noted in the chart Head ,ear nose,throat and eyes : Normal. Neck : Supple with normal carotids. Lungs: WAI RONCHI Heart : S1 & S2 normal with S4. No murmur. Abd : Soft non tender with normal bowel sounds. Neuro : Moves all ext. with no localized deficit. Ext : No edema with intact pulses.Non tender calves Derm : No rashes or decubitus ulcer. LABS/RADIOLOGY: PSEUDOMONAS IN SPUTUM ASSESSMENT/PLAN : IV STEROIDS/AB AND NEB CURRENTLY NO ALLERGY TO IV AB Objective - Vital Signs/Intake and Output Vital Signs (last 24 hours): Temp Pulse Resp BP Pulse Ox 97.8 F 105 H 18 164/96 H 97 05/09/17 08:03 05/09/17 08:03 05/09/17 08:03 05/09/17 08:03 05/09/17 08:03 Intake and Output: 05/09/17 05/09/17 11:59 23:59 Intake Total 340 Balance 340 - Medications Medications: Current Medications Albuterol/Ipratropium (Duoneb 3 Mg/0.5 Mg (3 Ml) Ud) 3 ml INH RQ6 [facility] Last Admin: 05/09/17 13:04 Dose: 3 ml Benzocaine/Menthol (Cepacol Sore Throat) 1 pravin MT QID [facility] Last Admin: 05/09/17 09:27 Dose: 1 pravin Benzonatate (Tessalon Perles) 100 mg PO TID [facility] Last Admin: 05/09/17 09:26 Dose: 100 mg Budesonide (Pulmicort Respules) 0.5 mg INH RQ12 [facility] Last Admin: 05/09/17 07:15 Dose: 0.5 mg Guaifenesin (Robitussin) 100 mg PO Q4H PRN PRN Reason: Cough Last Admin: 05/09/17 06:17 Dose: 100 mg Meropenem 500 mg/ Sodium (Chloride) 100 mls @ 100 mls/hr IVPB Q8 [facility] Last Admin: 05/09/17 05:37 Dose: 100 mls/hr Insulin Human Regular (Novolin R) 0 unit SC ACHS [facility] PRN Reason: Protocol Last Admin: 05/09/17 12:30 Dose: 6 unit Lactulose (Enulose) 20 gm PO DAILY [facility] Last Admin: 05/09/17 09:27 Dose: Not Given Losartan Potassium (Cozaar) 100 mg PO DAILY [facility] Last Admin: 05/09/17 09:26 Dose: 100 mg Methylprednisolone (Solu-Medrol) 40 mg IV Q8H [facility] Last Admin: 05/09/17 09:27 Dose: 40 mg Nifedipine (Procardia) 10 mg PO DAILY [facility] Last Admin: 05/09/17 09:26 Dose: 10 mg Potassium Chloride (Klor-Con 10) 10 meq PO BID [facility] Last Admin: 05/09/17 09:26 Dose: 10 meq - Labs Labs: 05/08/17 06:23 05/08/17 06:23 PT 10.9 SECONDS (9.7-12.2) 04/23/17 17:14 INR 1.0 04/23/17 17:14 APTT 25 SECONDS (21-34) 04/23/17 17:14 Assessment and Plan (1) HTN (hypertension) Status: Chronic (2) Asthma exacerbation Status: Acute (3) COPD exacerbation Status: Acute (4) GERD (gastroesophageal reflux disease) Status: Chronic (5) Hyperlipidemia Status: Chronic
--- NOTE | 2017-05-09 14:26 | CP.PCM.PN ---
Subjective - Date & Time of Evaluation Date of Evaluation: 05/09/17 Time of Evaluation: 14:24 - Subjective Subjective: Coverage for Dr Valerio Patient seen and examined Chart reviewed Patient reports improved dyspnea Objective - Vital Signs/Intake and Output Vital Signs (last 24 hours): Temp Pulse Resp BP Pulse Ox 97.8 F 105 H 18 164/96 H 97 05/09/17 08:03 05/09/17 08:03 05/09/17 08:03 05/09/17 08:03 05/09/17 08:03 Intake and Output: 05/09/17 05/09/17 06:59 18:59 Intake Total 340 Balance 340 - Medications Medications: Current Medications Albuterol/Ipratropium (Duoneb 3 Mg/0.5 Mg (3 Ml) Ud) 3 ml INH RQ6 [facility] Last Admin: 05/09/17 13:04 Dose: 3 ml Benzocaine/Menthol (Cepacol Sore Throat) 1 pravin MT QID [facility] Last Admin: 05/09/17 09:27 Dose: 1 pravin Benzonatate (Tessalon Perles) 100 mg PO TID [facility] Last Admin: 05/09/17 09:26 Dose: 100 mg Budesonide (Pulmicort Respules) 0.5 mg INH RQ12 [facility] Last Admin: 05/09/17 07:15 Dose: 0.5 mg Guaifenesin (Robitussin) 100 mg PO Q4H PRN PRN Reason: Cough Last Admin: 05/09/17 06:17 Dose: 100 mg Meropenem 500 mg/ Sodium (Chloride) 100 mls @ 100 mls/hr IVPB Q8 [facility] Last Admin: 05/09/17 05:37 Dose: 100 mls/hr Insulin Human Regular (Novolin R) 0 unit SC ACHS [facility] PRN Reason: Protocol Last Admin: 05/09/17 12:30 Dose: 6 unit Lactulose (Enulose) 20 gm PO DAILY [facility] Last Admin: 05/09/17 09:27 Dose: Not Given Losartan Potassium (Cozaar) 100 mg PO DAILY [facility] Last Admin: 05/09/17 09:26 Dose: 100 mg Methylprednisolone (Solu-Medrol) 40 mg IV Q8H [facility] Last Admin: 05/09/17 09:27 Dose: 40 mg Nifedipine (Procardia) 10 mg PO DAILY [facility] Last Admin: 05/09/17 09:26 Dose: 10 mg Potassium Chloride (Klor-Con 10) 10 meq PO BID [facility] Last Admin: 05/09/17 09:26 Dose: 10 meq - Labs Labs: 05/08/17 06:23 05/08/17 06:23 PT 10.9 SECONDS (9.7-12.2) 04/23/17 17:14 INR 1.0 04/23/17 17:14 APTT 25 SECONDS (21-34) 04/23/17 17:14 - Head Exam Head Exam: NORMAL INSPECTION - Eye Exam Eye Exam: Normal appearance - ENT Exam ENT Exam: Mucous Membranes Moist - Respiratory Exam Respiratory Exam: Rhonchi, NORMAL BREATHING PATTERN - Cardiovascular Exam Cardiovascular Exam: REGULAR RHYTHM, +S1, +S2 - GI/Abdominal Exam GI & Abdominal Exam: Soft, Normal Bowel Sounds - Extremities Exam Extremities Exam: Normal Inspection - Neurological Exam Neurological Exam: Alert, Oriented x3 - Psychiatric Exam Psychiatric exam: Normal Affect, Normal Mood Assessment and Plan (1) Asthma exacerbation Status: Acute - Assessment and Plan (Free Text) Plan: Continue Abx On IV Solumedrol Bronchodilators Tessalon pearls PRN
--- NOTE | 2017-05-09 16:10 | RAD ---
HISTORY: verify right PICC COMPARISON: 05/04/2017 FINDINGS: LUNGS: No infiltrate. PLEURA: Hazy opacity at left costophrenic angle may reflect small pleural effusion. CARDIOVASCULAR: Apparent cardiomegaly likely artifactual. 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 Right PICC catheter noted with its tip just above the level of the cavoatrial junction, in the superior vena cava. OSSEOUS STRUCTURES: No significant abnormalities. VISUALIZED UPPER ABDOMEN: Normal. OTHER FINDINGS: None. IMPRESSION: Right PICC catheter in SVC above the cavoatrial junction. Possible small left pleural effusion. No infiltrate.
[2017-05-09 16:31] VITALS: RESP 20
--- NOTE | 2017-05-09 22:36 | CP.PCM.PN ---
Subjective - Date & Time of Evaluation Date of Evaluation: 05/09/17 Time of Evaluation: 22:36 - Subjective Subjective: CHIEF COMPLAINTS TODAY : afebrile COUGH IMPROVED LESS DYSPNEA ROS. HEENT : N. Resp : No ,pleuritic CP ,or hemoptysis Cardio : No anginal CP, PND, orthopnea, palpitation GI : No abd.pain, n/v ,diarrhea or GI bleeding . 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 Musculoskel : No joint swelling , Derm : No rash Psych : Normal affect. Ext : No swelling ,calf pain PE. Pt. is alert awake in no distress. V.S As noted in the chart Head ,ear nose,throat and eyes : Normal. Neck : Supple with normal carotids. Lungs: LESS WAI/EXPIRATORY WHEEZE. Heart : S1 & S2 normal with S4. No murmur. Abd : Soft non tender with normal bowel sounds. Neuro : Moves all ext. with no localized deficit. Ext : No edema with intact pulses.Non tender calves Derm : No rashes or decubitus ulcer. LABS/RADIOLOGY: LABS REVIEWED ASSESSMENT/PLAN : EXACERBATION OF BRONCHIAL ASTHMA BRONCHPULMONARY INFECTION +VE PSEUDOMONAS (MDR )S-MEROPENEM PANSINUSITIS HYPERTENSION. GERD. PLan. CASE DISCUSSED WITH INTERNAL COMMUNICATIONS INTERN MS DUQUE. wILL NEED A picc LINE. CONTINUE IV ABX -IV MEROPENEM 500MG IV Q 8HRLY 05/07/17 X TOTAL OF 7 DAYS PULMONARY TOILET. TAPERING STEROIDS PER PULMONARY ANTITUSSIVE. Objective - Vital Signs/Intake and Output Vital Signs (last 24 hours): Temp Pulse Resp BP Pulse Ox 98.4 F 106 H 20 144/89 96 05/09/17 16:00 05/09/17 16:00 05/09/17 16:00 05/09/17 16:00 05/09/17 16:00 - Medications Medications: Current Medications Albuterol/Ipratropium (Duoneb 3 Mg/0.5 Mg (3 Ml) Ud) 3 ml INH RQ6 [facility] Last Admin: 05/09/17 19:07 Dose: 3 ml Benzocaine/Menthol (Cepacol Sore Throat) 1 pravin MT QID [facility] Last Admin: 05/09/17 21:34 Dose: Not Given Benzonatate (Tessalon Perles) 100 mg PO TID [facility] Last Admin: 05/09/17 17:55 Dose: 100 mg Budesonide (Pulmicort Respules) 0.5 mg INH RQ12 [facility] Last Admin: 05/09/17 19:07 Dose: 0.5 mg Guaifenesin (Robitussin) 100 mg PO Q4H PRN PRN Reason: Cough Last Admin: 05/09/17 06:17 Dose: 100 mg Meropenem 500 mg/ Sodium (Chloride) 100 mls @ 100 mls/hr IVPB Q8 [facility] Last Admin: 05/09/17 21:35 Dose: 100 mls/hr Insulin Human Regular (Novolin R) 0 unit SC ACHS [facility] PRN Reason: Protocol Last Admin: 05/09/17 17:56 Dose: 3 unit Lactulose (Enulose) 20 gm PO DAILY [facility] Last Admin: 05/09/17 09:27 Dose: Not Given Losartan Potassium (Cozaar) 100 mg PO DAILY [facility] Last Admin: 05/09/17 09:26 Dose: 100 mg Methylprednisolone (Solu-Medrol) 40 mg IV Q8H [facility] Last Admin: 05/09/17 17:55 Dose: 40 mg Nifedipine (Procardia) 10 mg PO DAILY [facility] Last Admin: 05/09/17 09:26 Dose: 10 mg Potassium Chloride (Klor-Con 10) 10 meq PO BID [facility] Last Admin: 05/09/17 17:56 Dose: 10 meq - Labs Labs: 05/08/17 06:23 05/08/17 06:23 PT 10.9 SECONDS (9.7-12.2) 04/23/17 17:14 INR 1.0 04/23/17 17:14 APTT 25 SECONDS (21-34) 04/23/17 17:14 Assessment and Plan (1) Asthma exacerbation Status: Acute (2) Bronchitis Status: Acute (3) HTN (hypertension) Status: Chronic (4) GERD (gastroesophageal reflux disease) Status: Chronic
[2017-05-10] MEDS: guaiFENesin 100 mg/5 ml Syrup UD PO PRN (00:08)
[2017-05-10] MEDS: MethylPREDNISolone 40 mg Vial IV SCH ×3 (00:26→17:19)
[2017-05-10] MEDS: Albuterol-Ipratrop 3 mg / 0.5 (3 ml) UD INH SCH ×4 (02:24→19:58)
[2017-05-10] MEDS: Meropenem 500 MG in Sodium Chloride 0.9% 100 ML IVPB SCH ×2 (05:46→13:36)
[2017-05-10] MEDS: Budesonide 0.5 mg/2 ml Inhal Susp UD INH SCH ×2 (07:10→19:58)
[2017-05-10 08:29] VITALS: O2SAT 98
[2017-05-10] MEDS: (Novolin R) Insulin Human Regular 100 units/ml vial SC SCH ×3 (08:48→17:45)
[2017-05-10] MEDS: Benzocaine/Menthol (Cepacol) Lozenge MT SCH ×3 (09:35→17:23)
[2017-05-10] MEDS: Potassium Chloride 10 mEq ER Tab PO SCH ×2 (09:36→17:19)
--- NOTE | 2017-05-10 13:49 | CP.PCM.DIS ---
Provider - Provider Date of Admission: 04/25/17 12:49 Attending physician: Nani Martinez MD Time Spent in preparation of Discharge (in minutes): 35 Diagnosis - Discharge Diagnosis (1) HTN (hypertension) Status: Chronic (2) Asthma exacerbation Status: Acute (3) COPD exacerbation Status: Acute (4) GERD (gastroesophageal reflux disease) Status: Chronic (5) Hyperlipidemia Status: Chronic Hospital Course - Lab Results Lab Results: Micro Results 05/04/17 02:35 Blood-Thru Central Line Blood Culture - Final NO GROWTH AFTER 5 DAYS 05/04/17 02:35 Blood-Thru Central Line Gram Stain - Final TEST NOT PERFORMED 05/04/17 02:35 Blood-Thru Central Line Blood Culture - Final NO GROWTH AFTER 5 DAYS 05/04/17 02:35 Blood-Thru Central Line Gram Stain - Final TEST NOT PERFORMED 05/05/17 15:30 Nose MRSA Culture - Final MRSA NOT DETECTED 05/03/17 Unknown Sputum Gram Stain - Final 05/03/17 Unknown Sputum Sputum Culture - Final Pseudomonas Aeruginosa 05/04/17 01:05 Nose MRSA Culture (Admit) - Final MRSA NOT DETECTED 05/01/17 08:00 Naris MRSA Culture (Admit) - Final MRSA NOT DETECTED 04/23/17 17:00 Blood Blood Culture - Final NO GROWTH AFTER 5 DAYS 04/23/17 17:00 Blood Gram Stain - Final TEST NOT PERFORMED 04/23/17 17:30 Blood Blood Culture - Final NO GROWTH AFTER 5 DAYS 04/23/17 17:30 Blood Gram Stain - Final TEST NOT PERFORMED 04/24/17 19:05 Throat Group A Strep Throat Culture - Final NO BETA STREP GROUP A ISOLATED. 04/24/17 19:05 Nose MRSA Culture (Admit) - Final MRSA NOT DETECTED Most Recent Lab Values WBC 20.1 K/uL (4.8-10.8) H 05/08/17 06:23 RBC 3.85 Mil/uL (3.80-5.20) 05/08/17 06:23 Hgb 12.5 g/dL (11.0-16.0) 05/08/17 06:23 Hct 37.1 % (34.0-47.0) 05/08/17 06:23 MCV 96.2 fL (81.0-99.0) 05/08/17 06:23 MCH 32.3 pg (27.0-31.0) H 05/08/17 06:23 MCHC 33.6 g/dL (33.0-37.0) 05/08/17 06:23 RDW 14.4 % (11.5-14.5) 05/08/17 06:23 Plt Count 154 K/uL (130-400) 05/08/17 06:23 MPV 10.4 fL (7.2-11.7) 05/08/17 06:23 Neut % (Auto) 95.3 % (50.0-75.0) H 05/07/17 06:47 Lymph % (Auto) 1.7 % (20.0-40.0) L 05/07/17 06:47 Braxton % (Auto) 2.9 % (0.0-10.0) 05/07/17 06:47 Eos % (Auto) 0.0 % (0.0-4.0) 05/07/17 06:47 Baso % (Auto) 0.1 % (0.0-2.0) 05/07/17 06:47 Neut # 20.3 K/uL (1.8-7.0) H 05/07/17 06:47 Lymph # 0.4 K/uL (1.0-4.3) L 05/07/17 06:47 Braxton # 0.6 K/uL (0.0-0.8) 05/07/17 06:47 Eos # 0.0 K/uL (0.0-0.7) 05/07/17 06:47 Baso # 0.0 K/uL (0.0-0.2) 05/07/17 06:47 Neutrophils % (Manual) 96 % (50-75) H 05/07/17 06:47 Band Neutrophils % 7 % (0-2) H 05/05/17 06:30 Lymphocytes % (Manual) 3 % (20-40) L 05/07/17 06:47 Reactive Lymphs % 1 % (0-0) H 05/04/17 06:18 Monocytes % (Manual) 1 % (0-10) 05/07/17 06:47 Metamyelocytes % 1 % (0-0) H 05/04/17 06:18 Toxic Granulation Present 05/04/17 06:18 Platelet Estimate Normal (NORMAL) 05/07/17 06:47 Large Platelets Present 04/27/17 08:03 RBC Morphology Normal 05/05/17 06:30 Anisocytosis (manual) Slight 05/07/17 06:47 Macrocytosis (manual) Slight 05/03/17 08:08 Target Cells Slight 05/07/17 06:47 Tear Drop Cells Slight 05/07/17 06:47 Padmini Cells Slight 05/07/17 06:47 ESR 47 mm/hr (0-20) H 04/25/17 06:40 PT 10.9 SECONDS (9.7-12.2) 04/23/17 17:14 INR 1.0 04/23/17 17:14 APTT 25 SECONDS (21-34) 04/23/17 17:14 D-Dimer, Quantitative 373 ng/mlDDU (0-243) H 05/03/17 17:00 Puncture Site Rr 05/03/17 14:15 pCO2 35 mm/Hg (35-45) 05/03/17 14:15 pO2 49 mm/Hg (80-100) L 05/03/17 14:15 HCO3 29.1 mmol/L (21-28) H 05/03/17 14:15 ABG pH 7.52 (7.35-7.45) H 05/03/17 14:15 ABG Total CO2 29.7 mmol/L (22-28) H 05/03/17 14:15 ABG O2 Saturation 88.2 % (95-98) L 05/03/17 14:15 ABG Base Excess 5.8 mmol/L (-2.0-3.0) H 05/03/17 14:15 ABG Hemoglobin 15.0 g/dL (11.7-17.4) 05/03/17 14:15 ABG Carboxyhemoglobin 1.6 % (0.5-1.5) H 05/03/17 14:15 POC ABG HHb (Measured) 11.5 % (0.0-5.0) H 05/03/17 14:15 ABG Methemoglobin 1.2 % (0.0-3.0) 05/03/17 14:15 Issa Test Pos 05/03/17 14:15 ABG Potassium 3.3 mmol/L (3.6-5.2) L 04/23/17 17:20 A-a O2 Difference 171.0 mm/Hg 05/03/17 14:15 Respiratory Index 3.5 05/03/17 14:15 Hgb O2 Saturation 85.7 % (95.0-98.0) L 05/03/17 14:15 Sodium 140.0 mmol/l (132-148) 04/23/17 17:20 Chloride 109.0 mmol/L (98-107) H 04/23/17 17:20 Glucose 103 mg/dl (65-105) 04/23/17 17:20 Lactate 1.0 mmol/L (0.7-2.1) 04/23/17 17:20 Liter Flow 4.0 05/03/17 14:15 FiO2 37.0 % 05/03/17 14:15 Sodium 131 mmol/L (132-148) L 05/08/17 06:23 Potassium 3.3 mmol/L (3.6-5.2) L 05/08/17 06:23 Chloride 96 mmol/L (98-107) L 05/08/17 06:23 Carbon Dioxide 30 mmol/L (22-30) 05/08/17 06:23 Anion Gap 8 (10-20) L 05/08/17 06:23 BUN 34 mg/dL (7-17) H 05/08/17 06:23 Creatinine 1.1 mg/dL (0.7-1.2) 05/08/17 06:23 Est GFR ( Amer) 58 05/08/17 06:23 Est GFR (Non-Af Amer) 48 05/08/17 06:23 POC Glucose (mg/dL) 361 mg/dL (65-110) H 05/10/17 11:27 Random Glucose 268 mg/dL (65-105) H 05/08/17 06:23 Calcium 7.6 mg/dl (8.6-10.4) L 05/08/17 06:23 Phosphorus 4.2 mg/dL (2.5-4.5) 05/05/17 06:30 Magnesium 2.2 mg/dL (1.6-2.3) 05/05/17 06:30 Total Bilirubin 0.8 mg/dL (0.2-1.3) 05/07/17 06:47 Direct Bilirubin 0.5 mg/dL (0.0-0.4) H 05/07/17 06:47 AST 19 U/L (14-36) 05/07/17 06:47 ALT 72 U/L (9-52) H 05/07/17 06:47 Alkaline Phosphatase 85 U/L (38-126) 05/07/17 06:47 Troponin I < 0.0120 ng/mL (0.00-0.120) 04/23/17 17:14 C-React Prot High Sens 5.61 mg/L (1.00-3.00) H 04/25/17 06:40 NT-Pro-B Natriuret Pep 776 pg/mL (0-900) 05/03/17 08:08 Total Protein 4.7 g/dL (6.3-8.3) L 05/07/17 06:47 Albumin 2.6 g/dL (3.5-5.0) L 05/07/17 06:47 Globulin 2.1 gm/dL (2.2-3.9) L 05/07/17 06:47 Albumin/Globulin Ratio 1.3 (1.0-2.1) 05/07/17 06:47 Procalcitonin 1.66 NG/ML (0.19-0.49) H 05/04/17 20:00 Arterial Blood Potassium 3.3 mmol/L (3.6-5.2) L 04/23/17 17:20 IgG 770.7 mg/dL (700.0-1600.0) 05/01/17 07:23 IgA 204.4 mg/dL (70.0-400.0) 05/01/17 07:23 IgM 47.2 mg/dL (40.0-230.0) 05/01/17 07:23 IgE 12 kU/L (<op=377) 05/01/17 07:23 Influenza Typ A,B (EIA) Negative for flu a/b (NEGATIVE) 04/25/17 03:49 Influenza Type A Ab 1:16 titer (<1:8) H 04/25/17 06:40 Influenza Type B Ab 1:8 titer (<1:8) H 04/25/17 06:40 Ur L.pneumophila Ag Negative (NEGATIVE) 04/25/17 03:49 Mycoplasma pneumon IgM Negative (NEGATIVE) 04/25/17 06:40 Aspergillus flavus Ab Negative (Negative) 05/01/17 07:23 Aspergill fumigatus Ab Negative (Negative) 05/01/17 07:23 Aspergillus niger Ab Negative (Negative) 05/01/17 07:23 - Hospital Course Hospital Course: 81 years old woman with a recent history of upper respiratory tract congestion started having wheezing and shortness of breath patient uses nebulizer and inhaler at home without much improvement. The wheezing increases in intensity and severity associated with cough and expectoration. There is no definite fever or chills or urinary incontinence. Patient has a history of bronchial asthma hypertension and arthritis and urinary incontinence. PT INITIALLY WAS RECALCITRANT TO ROUTINE BRONCHOSPASM THERAPY FINALLY CULTURE CAME BACK PSEUDOMONAS BY SWITCHING THE IV AB PER ID PT IMPROVED CURRENTLY PT IS WEAK WITH UNSTEADY GAIT WILL TRANSFER TO [facility] Discharge Exam - Head Exam Head Exam: NORMAL INSPECTION Discharge Plan - Follow Up Plan Condition: STABLE Disposition: HOME/ ROUTINE
[2017-05-10 16:21] VITALS: PULSE 104
[2017-05-10 17:12] VITALS: BP 127/80; TEMP 98.3
--- NOTE | 2017-05-10 17:54 | CP.PCM.PN ---
Subjective - Date & Time of Evaluation Date of Evaluation: 05/10/17 Time of Evaluation: 17:53 Objective - Vital Signs/Intake and Output Vital Signs (last 24 hours): Temp Pulse Resp BP Pulse Ox 98.3 F 104 H 20 127/80 98 05/10/17 15:00 05/10/17 15:35 05/10/17 15:00 05/10/17 15:00 05/10/17 15:00 Intake and Output: 05/10/17 05/10/17 06:59 18:59 Intake Total 220 Balance 220 - Medications Medications: Current Medications Albuterol/Ipratropium (Duoneb 3 Mg/0.5 Mg (3 Ml) Ud) 3 ml INH RQ6 [facility] Last Admin: 05/10/17 12:27 Dose: 3 ml Benzocaine/Menthol (Cepacol Sore Throat) 1 pravin MT QID [facility] Last Admin: 05/10/17 17:23 Dose: Not Given Benzonatate (Tessalon Perles) 100 mg PO TID [facility] Last Admin: 05/10/17 17:19 Dose: 100 mg Budesonide (Pulmicort Respules) 0.5 mg INH RQ12 [facility] Last Admin: 05/10/17 07:10 Dose: 0.5 mg Guaifenesin (Robitussin) 100 mg PO Q4H PRN PRN Reason: Cough Last Admin: 05/10/17 00:08 Dose: 100 mg Heparin Sodium (Porcine) (Heparin) 5,000 units SC Q8 [facility] Last Admin: 05/10/17 13:37 Dose: 5,000 units Hydrochlorothiazide (Microzide) 12.5 mg PO DAILY [facility] Last Admin: 05/10/17 09:36 Dose: 12.5 mg Meropenem 500 mg/ Sodium (Chloride) 100 mls @ 100 mls/hr IVPB Q8 [facility] Last Admin: 05/10/17 13:36 Dose: 100 mls/hr Insulin Human Regular (Novolin R) 0 unit SC ACHS [facility] PRN Reason: Protocol Last Admin: 05/10/17 17:45 Dose: 4 unit Lactulose (Enulose) 20 gm PO DAILY [facility] Last Admin: 05/10/17 12:35 Dose: Not Given Losartan Potassium (Cozaar) 100 mg PO DAILY [facility] Last Admin: 05/10/17 09:36 Dose: 100 mg Methylprednisolone (Solu-Medrol) 40 mg IV Q8H [facility] Last Admin: 05/10/17 17:19 Dose: 40 mg Nifedipine (Procardia) 10 mg PO DAILY [facility] Last Admin: 05/10/17 09:35 Dose: 10 mg Potassium Chloride (Klor-Con 10) 10 meq PO BID [facility] Last Admin: 05/10/17 17:19 Dose: 10 meq - Labs Labs: 05/08/17 06:23 05/08/17 06:23 PT 10.9 SECONDS (9.7-12.2) 04/23/17 17:14 INR 1.0 04/23/17 17:14 APTT 25 SECONDS (21-34) 04/23/17 17:14
--- NOTE | 2017-05-10 19:04 | CP.PCM.PN ---
Subjective - Date & Time of Evaluation Date of Evaluation: 05/10/17 Time of Evaluation: 14:20 - Subjective Subjective: Patient seen and examined No events overnight Objective - Vital Signs/Intake and Output Vital Signs (last 24 hours): Temp Pulse Resp BP Pulse Ox 98.3 F 104 H 20 127/80 98 05/10/17 15:00 05/10/17 15:35 05/10/17 15:00 05/10/17 15:00 05/10/17 15:00 - Medications Medications: Current Medications Albuterol/Ipratropium (Duoneb 3 Mg/0.5 Mg (3 Ml) Ud) 3 ml INH RQ6 [facility] Last Admin: 05/10/17 12:27 Dose: 3 ml Benzocaine/Menthol (Cepacol Sore Throat) 1 pravin MT QID [facility] Last Admin: 05/10/17 17:23 Dose: Not Given Benzonatate (Tessalon Perles) 100 mg PO TID [facility] Last Admin: 05/10/17 17:19 Dose: 100 mg Budesonide (Pulmicort Respules) 0.5 mg INH RQ12 [facility] Last Admin: 05/10/17 07:10 Dose: 0.5 mg Guaifenesin (Robitussin) 100 mg PO Q4H PRN PRN Reason: Cough Last Admin: 05/10/17 00:08 Dose: 100 mg Heparin Sodium (Porcine) (Heparin) 5,000 units SC Q8 [facility] Last Admin: 05/10/17 13:37 Dose: 5,000 units Hydrochlorothiazide (Microzide) 12.5 mg PO DAILY [facility] Last Admin: 05/10/17 09:36 Dose: 12.5 mg Meropenem 500 mg/ Sodium (Chloride) 100 mls @ 100 mls/hr IVPB Q8 [facility] Last Admin: 05/10/17 13:36 Dose: 100 mls/hr Insulin Human Regular (Novolin R) 0 unit SC ACHS [facility] PRN Reason: Protocol Last Admin: 05/10/17 17:45 Dose: 4 unit Lactulose (Enulose) 20 gm PO DAILY [facility] Last Admin: 05/10/17 12:35 Dose: Not Given Losartan Potassium (Cozaar) 100 mg PO DAILY [facility] Last Admin: 05/10/17 09:36 Dose: 100 mg Methylprednisolone (Solu-Medrol) 40 mg IV Q8H [facility] Last Admin: 05/10/17 17:19 Dose: 40 mg Nifedipine (Procardia) 10 mg PO DAILY [facility] Last Admin: 05/10/17 09:35 Dose: 10 mg Potassium Chloride (Klor-Con 10) 10 meq PO BID [facility] Last Admin: 05/10/17 17:19 Dose: 10 meq - Labs Labs: 05/08/17 06:23 05/08/17 06:23 PT 10.9 SECONDS (9.7-12.2) 04/23/17 17:14 INR 1.0 04/23/17 17:14 APTT 25 SECONDS (21-34) 04/23/17 17:14 - Head Exam Head Exam: NORMAL INSPECTION - Eye Exam Eye Exam: Normal appearance - ENT Exam ENT Exam: Mucous Membranes Moist - Respiratory Exam Respiratory Exam: Prolonged Expiratory Phase - Cardiovascular Exam Cardiovascular Exam: REGULAR RHYTHM, +S1, +S2 - GI/Abdominal Exam GI & Abdominal Exam: Soft, Normal Bowel Sounds - Extremities Exam Extremities Exam: Normal Inspection - Neurological Exam Neurological Exam: Alert, Oriented x3 Assessment and Plan (1) Asthma exacerbation Status: Acute - Assessment and Plan (Free Text) Plan: Continue Abx Steroids Bronchodilators Tessalon pearls PRN
--- NOTE | 2017-05-10 21:11 | CP.PCM.PN ---
Subjective - Date & Time of Evaluation Date of Evaluation: 05/10/17 Time of Evaluation: 16:00 - Subjective Subjective: CHIEF COMPLAINTS TODAY : afebrile COUGH IMPROVED DENIES SOB. PT FOR [place] TODAY ROS. HEENT : N. Resp : No ,pleuritic CP ,or hemoptysis Cardio : No anginal CP, PND, orthopnea, palpitation GI : No abd.pain, n/v ,diarrhea or GI bleeding . 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 Musculoskel : No joint swelling , Derm : No rash Psych : Normal affect. Ext : No swelling ,calf pain PE. Pt. is alert awake in no distress. V.S As noted in the chart Head ,ear nose,throat and eyes : Normal. Neck : Supple with normal carotids. Lungs: CLEARING ,LESS EXP. WHEEZE. Heart : S1 & S2 normal with S4. No murmur. Abd : Soft non tender with normal bowel sounds. Neuro : Moves all ext. with no localized deficit. Ext : No edema with intact pulses.Non tender calves Derm : No rashes or decubitus ulcer. LABS/RADIOLOGY: LABS REVIEWED ASSESSMENT/PLAN : EXACERBATION OF BRONCHIAL ASTHMA BRONCHPULMONARY INFECTION +VE PSEUDOMONAS (MDR )S-MEROPENEM PANSINUSITIS HYPERTENSION. GERD. PLan. CASE DISCUSSED WITH BATTERY TESTER FIELD MS DUQUE. picc LINE IS IN. CONTINUE IV ABX -IV MEROPENEM 500MG IV Q 8HRLY 05/07/17 X TOTAL OF 7 DAYS PULMONARY TOILET. TAPERING STEROIDS PER PULMONARY ANTITUSSIVE. CASE DISCUSSED WITH Skyler NAVARRO.BATTERY TESTER FIELD. Objective - Vital Signs/Intake and Output Vital Signs (last 24 hours): Temp Pulse Resp BP Pulse Ox 98.3 F 104 H 20 127/80 98 05/10/17 15:00 05/10/17 15:35 05/10/17 15:00 05/10/17 15:00 05/10/17 15:00 - Medications Medications: Current Medications Albuterol/Ipratropium (Duoneb 3 Mg/0.5 Mg (3 Ml) Ud) 3 ml INH RQ6 [facility] Last Admin: 05/10/17 19:58 Dose: 3 ml Benzocaine/Menthol (Cepacol Sore Throat) 1 pravin MT QID [facility] Last Admin: 05/10/17 17:23 Dose: Not Given Benzonatate (Tessalon Perles) 100 mg PO TID [facility] Last Admin: 05/10/17 17:19 Dose: 100 mg Budesonide (Pulmicort Respules) 0.5 mg INH RQ12 [facility] Last Admin: 05/10/17 19:58 Dose: 0.5 mg Guaifenesin (Robitussin) 100 mg PO Q4H PRN PRN Reason: Cough Last Admin: 05/10/17 00:08 Dose: 100 mg Heparin Sodium (Porcine) (Heparin) 5,000 units SC Q8 [facility] Last Admin: 05/10/17 13:37 Dose: 5,000 units Hydrochlorothiazide (Microzide) 12.5 mg PO DAILY [facility] Last Admin: 05/10/17 09:36 Dose: 12.5 mg Meropenem 500 mg/ Sodium (Chloride) 100 mls @ 100 mls/hr IVPB Q8 [facility] Last Admin: 05/10/17 13:36 Dose: 100 mls/hr Insulin Human Regular (Novolin R) 0 unit SC ACHS IKE PRN Reason: Protocol Last Admin: 05/10/17 17:45 Dose: 4 unit Lactulose (Enulose) 20 gm PO DAILY [facility] Last Admin: 05/10/17 12:35 Dose: Not Given Losartan Potassium (Cozaar) 100 mg PO DAILY [facility] Last Admin: 05/10/17 09:36 Dose: 100 mg Methylprednisolone (Solu-Medrol) 40 mg IV Q8H [facility] Last Admin: 05/10/17 17:19 Dose: 40 mg Nifedipine (Procardia) 10 mg PO DAILY [facility] Last Admin: 05/10/17 09:35 Dose: 10 mg Potassium Chloride (Klor-Con 10) 10 meq PO BID [facility] Last Admin: 05/10/17 17:19 Dose: 10 meq - Labs Labs: 05/08/17 06:23 05/08/17 06:23 PT 10.9 SECONDS (9.7-12.2) 04/23/17 17:14 INR 1.0 04/23/17 17:14 APTT 25 SECONDS (21-34) 04/23/17 17:14 Assessment and Plan (1) Asthma exacerbation Status: Acute (2) Bronchitis Status: Acute (3) HTN (hypertension) Status: Chronic (4) GERD (gastroesophageal reflux disease) Status: Chronic
== END 2017-05-10 21:34 | DRG 189 ==
LOC: C.ER 15:42 → C.9E 18:54 → C.3T 20:01 → OBSVTOIN 04-25 12:49 → C.9I 05-03 20:45 → C.6T 05-05 14:44 → UNDODISIN 05-10 21:15
PROVIDERS: ADMIT Internal Medicine Cardiovascular Disease; ATTEND Internal Medicine Cardiovascular Disease
PROC: 0CJS8ZZ Inspection of Larynx, Via Natural or Artificial Opening Endoscopic (ICD-10-PCS; principal; 2017-04-27)
PROC: 5A09457 Assistance with Respiratory Ventilation, 24-96 Consecutive Hours, Continuous Positive Airway Pressure (ICD-10-PCS; 2017-05-03)
PROC: 02HV33Z Insertion of Infusion Device into Superior Vena Cava, Percutaneous Approach (ICD-10-PCS; 2017-05-09)
DX: J96.91 Respiratory failure, unspecified with hypoxia (principal); J44.0 Chronic obstructive pulmonary disease with (acute) lower respiratory infection; J45.901 Unspecified asthma with (acute) exacerbation; J44.1 Chronic obstructive pulmonary disease with (acute) exacerbation; R13.10 Dysphagia, unspecified; K21.9 Gastro-esophageal reflux disease without esophagitis; J20.9 Acute bronchitis, unspecified; E78.5 Hyperlipidemia, unspecified; I10 Essential (primary) hypertension; Z88.0 Allergy status to penicillin; Z85.028 Personal history of other malignant neoplasm of stomach

== ENCOUNTER 2017-05-30 11:24 | Inpatient (IN) | payer MEDICARE, OTHER ==
[2017-05-30 11:24] VITALS: BMI 35.9
[2017-05-30 12:08] LABS: BASO % 0.7 % (0.0-2.0); EOS % 0.3 % (0.0-4.0); LYMPH # 0.8 K/uL (1.0-4.3); LYMPH % 13.3 % (20.0-40.0); MEAN CORPUSCULAR HEMOGLOBIN 32.3 pg (27.0-31.0); MEAN CORPUSCULAR HGB CONC 34.3 g/dL (33.0-37.0); MEAN PLATELET VOLUME 7.5 fL (7.2-11.7); MONO # 0.4 K/uL (0.0-0.8); MONO % 6.3 % (0.0-10.0); NEUT # 4.9 K/uL (1.8-7.0); NEUT % 79.4 % (50.0-75.0); NRBC % 0.5 % (0.0-2.0); RBC 3.17 Mil/uL (3.80-5.20); RED CELL DISTRIBUTION WIDTH 13.7 % (11.5-14.5)
[2017-05-30 12:09] LABS: HEMOGLOBIN 10.2 g/dL (11.0-16.0); MEAN CELL VOLUME 94.2 fL (81.0-99.0); WHITE BLOOD COUNT 6.1 K/uL (4.8-10.8)
--- NOTE | 2017-05-30 12:21 | C.PDOC ---
History Of Present Illness 81 year old female with PMHx of asthma, DM is brought to the ED via BLS from the group home for evaluation of pneumonia. Patient reports she feels sleepy all the time, upon examination patient is hypotensive and tachycardic. Patient denies any nausea, vomit, abdominal pain, diarrhea, headache, weakness, numbness. Time Seen by Provider: 05/30/17 12:03 Chief Complaint (Nursing): Shortness Of Breath History Per: Patient, EMS History/Exam Limitations: no limitations Onset/Duration Of Symptoms: Days Current Symptoms Are (Timing): Still Present Quality: Tightness Associated Symptoms: Ankle/Leg Swelling Recent travel outside of the [place]: No Additional History Per: Patient, EMS Past Medical History Reviewed: Historical Data, Nursing Documentation, Vital Signs Vital Signs: Last Vital Signs Temp 101.9 F H 05/30/17 12:59 Pulse 105 H 05/30/17 13:58 Resp 24 05/30/17 13:58 BP 137/77 05/30/17 13:58 Pulse Ox 96 05/30/17 14:09 - Medical History PMH: Arthritis (R TKR; BACK PAIN), Asthma, Bronchitis, HTN, Hypercholesterolemia , Pneumonia Denies: Chronic Kidney Disease Surgical History: No Surg Hx - [facility] ASSISTANCE WITH RESPIRATORY VENTILATION, 24-96 HRS, CPAP (04/25/17) INSERTION OF INFUSION DEV INTO SUP VENA CAVA, PERC APPROACH (04/25/17) INSPECTION OF LARYNX, ENDO (04/25/17) Family History: States: Unknown Family Hx - Social History Hx Tobacco Use: No Hx Alcohol Use: No Hx Substance Use: No - Immunization History Hx Tetanus Toxoid Vaccination: No Hx Influenza Vaccination: Yes (04/05/2017) Hx Pneumococcal Vaccination: Yes (04/05/2017) Review Of Systems Constitutional: Negative for: Fever, Chills ENT: Negative for: Nose Discharge, Nose Congestion Cardiovascular: Negative for: Chest Pain, Palpitations Respiratory: Positive for: Shortness of Breath. Negative for: Cough Gastrointestinal: Negative for: Nausea, Vomiting, Abdominal Pain Musculoskeletal: Negative for: Back Pain Skin: Negative for: Rash Neurological: Negative for: Weakness, Numbness Physical Exam - Physical Exam Appears: Non-toxic, No Acute Distress Skin: Normal Color, Warm, Dry Head: Atraumatic, Normacephalic Nose: No Discharge, No Deformity Oral Mucosa: Moist Throat: Normal, No Erythema, No Exudate Neck: Normal ROM, Supple Chest: Symmetrical Cardiovascular: Rhythm Regular (tachycardic), No Murmur Respiratory: Rhonchi (scattered) Gastrointestinal/Abdominal: Soft, No Tenderness, No Guarding, No Rebound, Other (obese) Extremity: Normal ROM, Pedal Edema (B/L), No Calf Tenderness, Capillary Refill ( <2 seconds), No Deformity, Other (left arm bruising) Pulses: Left Dorsalis Pedis: Normal, Right Dorsalis Pedis: Normal Neurological/Psych: Oriented x3, Normal Speech, Normal Cognition ED Course And Treatment - Laboratory Results Result Diagrams: 05/30/17 12:03 05/30/17 12:03 ECG: Interpreted By Me, Viewed By Me ECG Rhythm: Sinus Tachycardia, Nonspecific Changes (ST and T wave changes) Rate From EC O2 Sat by Pulse Oximetry: 96 (On RA) Pulse Ox Interpretation: Normal Medical Decision Making Medical Decision Making: Impression : pneumonia evaluation Plan: * EKG * Labs * VBG * Blood and urine culture * UA * CXR Patient initially was 3 SIRS criteria with normal lactate, but later vital signs normalized rapidly does not meet sepsis criteria. 14: 07 -Spoke with Dr. Sanon who is covering for Dr. Roberto Barron. Dr. Sanon is aware that this patient is from a group home and agrees with hospitalization states that he wants Dr. Edwards on consult. Disposition Discussed With : Celia Sanon Counseled Patient/Family Regarding: Studies Performed - Disposition Disposition: HOSPITALIZED Disposition Time: 14:06 Condition: GUARDED Forms: [facility] (Japanese) - POA Present On Arrival: None - Clinical Impression Clinical Impression: Pneumonia - Scribe Statement The provider has reviewed the documentation as recorded by the Scribe Cristi Ortiz All medical record entries made by the Scribe were at my direction and personally dictated by me. I have reviewed the chart and agree that the record accurately reflects my personal performance of the history, physical exam, medical decision making, and the department course for this patient. I have also personally directed, reviewed, and agree with the discharge instructions and disposition. Decision To Admit - Pt Status Changed To: Hospital Disposition Of: Inpatient - Admit Certification Admit to Inpatient:: After my assessment, the patient will require hospitalization for at least two midnights. This is because of the severity of symptoms shown, intensity of services needed, and/or the medical risk in this patient being treated as an outpatient. - InPatient: Physician Admission Certification: I certify that this patient requires 2 or more midnights of care for the following reason:: pneumonia, fever - . Bed Request Type: Telemetry Patient Diagnosis: Pneumonia
[2017-05-30 12:30] LABS: ALBUMIN 2.8 g/dL (3.5-5.0); ALT/SGPT 88 U/L (9-52); AST/SGOT 32 U/L (14-36); BLOOD UREA NITROGEN 20 mg/dL (7-17); CALCIUM 7.6 mg/dl (8.6-10.4); GFR AFRICAN-AMERICAN > 60; GFR NON-AFRICAN AMERICAN > 60
[2017-05-30 12:50] LABS: VENOUS BLOOD GAS BASE EXCESS 12.1 mmol/L (0.0-2.0); VENOUS BLOOD GAS PCO2 49 mmHg (40-60); VENOUS BLOOD GAS PO2 27 mm/Hg (30-55); VENOUS BLOOD PH 7.49 (7.32-7.43)
[2017-05-30 13:15] LABS: SQUAMOUS EPITHIAL < 1 /hpf (0-5); URINE BILIRUBIN NEGATIVE (NEGATIVE); URINE BLOOD NEGATIVE (NEGATIVE); URINE CLARITY Clear (Clear); URINE COLOR Yellow (YELLOW); URINE GLUCOSE (UA) NORMAL (Normal); URINE LEUKOCYTE ESTERASE NEG Leu/uL (Negative); URINE NITRATE NEGATIVE (NEGATIVE); URINE PROTEIN NEGATIVE (NEGATIVE); URINE UROBILINOGEN NORMAL mg/dL (0.2-1.0)
[2017-05-30 13:30] LABS: B-TYPE NATRIURETIC PEPTIDE 1440 pg/mL (0-900)
[2017-05-30] MEDS ORDERED: Aztreonam 2 GM in Sodium Chloride 0.9% 100 ML IVPB STA (13:35)
[2017-05-30] MEDS ORDERED: Vancomycin 1 GM 1 GM/250 ML BAG IV SCH (13:45)
[2017-05-30] MEDS ORDERED: Vancomycin 1 gm/NS 200 ml 1 GM/200 ML BAG IVPB ONE (13:45)
--- NOTE | 2017-05-30 15:35 | RAD ---
HISTORY: pneumonia, PICC placement COMPARISON: 05/09/2017 FINDINGS: LUNGS: Improved aeration of the lungs particularly left lower lobe. PLEURA: No significant pleural effusion identified, no pneumothorax apparent. CARDIOVASCULAR: No radiographic findings to suggest acute or significant cardiovascular disease. PICC line tip in the SVC partially obscured by overlying soft tissues. No pneumothorax OSSEOUS STRUCTURES: No significant abnormalities. VISUALIZED UPPER ABDOMEN: Normal. OTHER FINDINGS: None. IMPRESSION: Interval improvement left lower lobe infiltrate. No adverse findings following PICC placement
--- NOTE | 2017-05-30 16:20 | CP.PCM.CON ---
History of Present Illness - History of Present Illness History of Present Illness: 81 year old female with PMHx of asthma, DM [facility]. Patient reports she feels sleepy all the time, upon examination patient is hypotensive and tachycardic. Patient denies any nausea, vomit, abdominal pain, diarrhea, headache, weakness, numbness. IV antibiotics ordered cultures pending - Medical History PMH: Arthritis (R TKR; BACK PAIN), Asthma, Bronchitis, HTN, Hypercholesterolemia , Pneumonia Denies: Chronic Kidney Disease Surgical History: No Surg Hx Review of Systems - Review of Systems All systems: reviewed and no additional remarkable complaints except - Constitutional Constitutional: As Per HPI - EENT Eyes: absent: As Per HPI, Blind Spots, Blurred Vision, Change in Vision, Decreased Night Vision, Diplopia, Discharge, Dry Eye, Exophthalmos, Floaters, Irritation, Itchy Eyes, Loss of Peripheral Vision, Pain, Photophobia, Requires Corrective Lenses, Sees Flashes, Spots in Vision, Tunnel Vision, Other Visual Disturbances, Loss of Vision, Other Ears: absent: As Per HPI, Decreased Hearing, Ear Discharge, Ear Pain, Tinnitus, Abnormal Hearing, Disequilibrium, Dizziness, Other Nose/Mouth/Throat: absent: As Per HPI, Epistaxis, Nasal Congestion, Nasal Discharge, Nasal Obstruction, Nasal Trauma, Nose Pain, Post Nasal Drip, Sinus Pain, Sinus Pressure, Bleeding Gums, Change in Voice, Dental Pain, Dry Mouth, Dysphagia, Halitosis, Hoarsness, Lip Swelling, Mouth Lesions, Mouth Pain, Odynophagia, Sore Throat, Throat Swelling, Tongue Swelling, Facial Pain, Neck Pain, Neck Mass, Other - Breasts Breasts: absent: As Per HPI, Change in Shape, Mass, Pain, Nipple Discharge, Nipple Inversion, Skin Changes, Swelling, Other - Cardiovascular Cardiovascular: absent: As Per HPI, Acrocyanosis, Chest Pain, Chest Pain at Rest , Chest Pain with Activity, Claudication, Diaphoresis, Dyspnea, Dyspnea on Exertion, Edema, Irregular Heart Rhythm, Pain Radiating to Arm/Neck/Jaw, Leg Edema, Leg Ulcers, Lightheadedness, Orthopnea, Palpitations, Paroxysmal Nocturnal Dyspnea, Pedal Edema, Radiating Pain, Rapid Heart Rate, Slow Heart Rate, Syncope, Other - Respiratory Respiratory: As Per HPI - Gastrointestinal Gastrointestinal: absent: As Per HPI, Abdominal Pain, Belching, Bloating, Change in Bowel Habits, Change in Stool Character, Coffee Ground Emesis, Constipation, Cramping, Diarrhea, Dyspepsia, Dysphagia, Early Satiety, Excessive Flatus, Fecal Incontinence, Heartburn, Hematemesis, Hematochezia, Loose Stools, Melena, Nausea, Odynophagia, Temesmus, Vomiting, Other - Genitourinary Genitourinary: absent: As Per HPI, Change in Urinary Stream, Difficulty Urinating, Dysuria, Flank Pain, Hematuria, Pyuria, Nocturia, Urinary Incontinence, Urinary Frequency, Urinary Hesitance, Urinary Urgency, Voiding Freq/Small Amts, Freq UTI, Hx Renal/Bladder Calculi, Hx /Renal Surgery, Bladder Distension, Other - Reproductive: Female Reproductive:Female: absent: As Per HPI, Amenorrhea, Amenorrhea/ Control, Currently Menstual, Cycle <21 Days, Cycle >35 Days, Cycle Variable, Menses 1-7 Days, Menses >/= 8 Days, Menses Variable, Cycle > 4 Weeks Between, No Menses for 6 Months, Heavy Menses, Light Menses, Normal Menses, Spotting Between Cycles , S/P Hysterectomy, Menopausal, Post Menopausal, Premenarche, Abnormal Vaginal Bleeding, Dysmenorrhea, Dyspareunia, Genital Lesions, Genital Pruritis, Pelvic Pain, Prolapse Symptoms, Sexual Dysfunction, Vaginal Discharge, Vaginal Dryness , Vaginal Odor, Vaginal Pruritis, Other - Menstruation Menstruation: absent: As Per HPI, Amenorrhea, Amenorrhea/ Control, Currently Menstual, Cycle <21 Days, Cycle >35 Days, Cycle Variable, Menses 1-7 Days, Menses >/= 8 Days, Menses Variable, Cycle > 4 Weeks Between, No Menses for 6 Months, Heavy Menses, Light Menses, Normal Menses, Spotting Between Cycles , S/P Hysterectomy, Menopausal, Post Menopausal, Premenarche, Abnormal Vaginal Bleeding, Dysmenorrhea, Other - Musculoskeletal Musculoskeletal: absent: As Per HPI, Abnormal Gait, Arthralgias, Atrophy, Back Pain, Deformity, Joint Swelling, Limited Range of Motion, Loss of Height, Muscle Cramps, Muscle Weakness, Myalgias, Neck Pain, Numbness, Radiating Pain into Limb, Stiffness, Tingling, Other - Integumentary Integumentary: absent: As Per HPI, Acne, Alopecia, Bleeding Lesions, Change in Hair, Change in Nails, Change in Pigmentation, Changing Lesions, Dry Skin, Erythema, Furuncle, Hirsutism, Lesions, New Lesions, Non-Healing Lesions, Photosensitivity, Pruritus, Rash, Skin Pain, Skin Ulcer, Sores, Striae, Swelling , Unusual Bruising, Wounds, Jaundice, Other - Neurological Neurological: absent: As Per HPI, Abnormal Gait, Abnormal Hearing, Abnormal Movements, Abnormal Speech, Behavioral Changes, Burning Sensations, Confusion, Convulsions, Disequilibrium, Dizziness, Numbness, Focal Weakness, Frequent Falls , Headaches, Lack of Coordination, Loss of Vision, Memory Loss, Paresthesias, Radicular Pain, Restless Legs, Sensory Deficit, Syncope, Tingling, Tremor, Vertigo, Weakness, Other Visual Disturbances, Other - Psychiatric Psychiatric: absent: As Per HPI, Abnormal Sleep Pattern, Anhedonia, Anxiety, Auditory Hallucinations, Behavioral Changes, Change in Appetite, Change in Libido, Confusion, Depression, Difficulty Concentrating, Hallucinations, Homicidal Ideation, Hopelessness, Irritability, Memory Loss, Mood Swings, Panic Attacks, Paranoia, Suicidal Ideation, Visual Hallucinations, Tactile Hallucinations, Other Past Patient History - Infectious Disease Hx of Infectious Diseases: None - Past Medical History & Family History Past Medical History?: Yes - Past Social History Smoking Status: Never Smoked - CARDIAC Hx Hypercholesterolemia: Yes Hx Hypertension: Yes - PULMONARY Hx Asthma: Yes Hx Bronchitis: Yes Hx Pneumonia: Yes - NEUROLOGICAL Hx Neurological Disorder: No - HEENT Hx HEENT Problems: Yes - RENAL Hx Chronic Kidney Disease: No - ENDOCRINE/METABOLIC Hx Diabetes Mellitus Type 2: Yes - HEMATOLOGICAL/ONCOLOGICAL Hx Blood Disorders: No - INTEGUMENTARY Hx Dermatological Problems: No - MUSCULOSKELETAL/RHEUMATOLOGICAL Hx Arthritis: Yes (R TKR; BACK PAIN) - GASTROINTESTINAL Hx Gastrointestinal Disorders: Yes Hx Gastroesophageal Reflux: Yes Other/Comment: hx of esophageal CA - GENITOURINARY/GYNECOLOGICAL Hx Genitourinary Disorders: Yes - PSYCHIATRIC Hx Substance Use: No - SURGICAL HISTORY Hx Surgeries: Yes Hx Breast Biopsy: Yes Hx Hysterectomy: Yes Hx Orthopedic Surgery: Yes (RTKR) Other/Comment: ESOPHAGEAL SX - ANESTHESIA Hx Anesthesia: Yes Hx Anesthesia Reactions: No Hx Malignant Hyperthermia: No Meds Allergies/Adverse Reactions: Allergies Allergy/AdvReac Type Severity Reaction Status Date / Time aspirin Allergy Severe RASH Verified 05/30/17 11:42 ciprofloxacin [From Cipro] Allergy Severe RASH Verified 05/30/17 11:42 ciprofloxacin HCl Allergy Severe RASH Verified 05/30/17 11:42 [From Cipro] nitrofurantoin Allergy Severe RASH Verified 05/30/17 11:42 [From Macrobid] nitrofurantoin Allergy Severe RASH Verified 05/30/17 11:42 macrocrystalline [From Macrobid] Penicillins Allergy Severe RASH Verified 05/30/17 11:42 Sulfa (Sulfonamide Allergy Severe RASH Verified 05/30/17 11:42 Antibiotics) azithromycin Allergy ITCHING Verified 05/30/17 11:42 - Medications Medications: Current Medications Acetaminophen (Tylenol 325mg Tab) 975 mg PO ONCE PRN PRN Reason: Fever >100.4 F Last Admin: 05/30/17 13:59 Dose: 975 mg Physical Exam - Constitutional Appears: Chronically Ill - Head Exam Head Exam: NORMOCEPHALIC - Eye Exam Eye Exam: PERRL. absent: Scleral icterus - ENT Exam ENT Exam: Mucous Membranes Dry - Neck Exam Neck exam: Negative for: Lymphadenopathy - Respiratory Exam Respiratory Exam: Decreased Breath Sounds, Prolonged Expiratory Phase, Rhonchi, Wheezes - Cardiovascular Exam Cardiovascular Exam: Tachycardia, REGULAR RHYTHM, +S1, +S2 - GI/Abdominal Exam GI & Abdominal Exam: Diminished Bowel Sounds, Soft. absent: Tenderness - Rectal Exam Rectal Exam: Deferred - Exam Exam: NORMAL INSPECTION - Extremities Exam Extremities exam: Positive for: pedal pulses present. Negative for: calf tenderness, pedal edema, tenderness - Back Exam Back exam: absent: CVA tenderness (L), CVA tenderness (R) - Neurological Exam Neurological exam: Alert, CN II-XII Intact, Oriented x3, Reflexes Normal - Psychiatric Exam Psychiatric exam: Normal Mood - Skin Skin Exam: Dry Results - Vital Signs Recent Vital Signs: Last Vital Signs Temp 100.7 F H 05/30/17 16:02 Pulse 105 H 05/30/17 16:02 Resp 19 05/30/17 16:02 BP 128/74 05/30/17 16:02 Pulse Ox 96 05/30/17 16:02 - Labs Result Diagrams: 05/30/17 12:03 05/30/17 12:03 Labs: Laboratory Results - last 24 hr 05/30/17 05/30/17 05/30/17 12:03 12:03 12:46 WBC 6.1 D RBC 3.17 L Hgb 10.2 L D Hct 29.8 L MCV 94.2 D MCH 32.3 H MCHC 34.3 RDW 13.7 Plt Count 199 MPV 7.5 Neut % (Auto) 79.4 H Lymph % (Auto) 13.3 L [place] % (Auto) 6.3 Eos % (Auto) 0.3 Baso % (Auto) 0.7 Neut # 4.9 Lymph # 0.8 L [place] # 0.4 Eos # 0.0 Baso # 0.0 pO2 27 L VBG pH 7.49 H VBG pCO2 49 VBG HCO3 33.3 VBG Total CO2 38.8 H VBG O2 Sat (Calc) 60.3 VBG Base Excess 12.1 H VBG Potassium 3.0 L Glucose 115 H Lactate 1.3 Sodium 128 L 134.0 Potassium 3.0 L Chloride 90 L 98.0 Carbon Dioxide 33 H Anion Gap 7 L BUN 20 H Creatinine 0.6 L Est GFR ( Amer) > 60 Est GFR (Non-Af Amer) > 60 Random Glucose 116 H Calcium 7.6 L Total Bilirubin 0.5 AST 32 ALT 88 H D Alkaline Phosphatase 72 Troponin I 0.1040 NT-Pro-B Natriuret Pep 1440 H Total Protein 5.5 L Albumin 2.8 L Globulin 2.7 Albumin/Globulin Ratio 1.0 Venous Blood Potassium 3.0 L Urine Color Urine Clarity Urine pH Ur Specific [place] Urine Protein Urine Glucose (UA) Urine Ketones Urine Blood Urine Nitrate Urine Bilirubin Urine Urobilinogen Ur Leukocyte Esterase Urine WBC (Auto) Ur Squamous Epith Cells 05/30/17 13:04 WBC RBC Hgb Hct MCV MCH MCHC RDW Plt Count MPV Neut % (Auto) Lymph % (Auto) [place] % (Auto) Eos % (Auto) Baso % (Auto) Neut # Lymph # [place] # Eos # Baso # pO2 VBG pH VBG pCO2 VBG HCO3 VBG Total CO2 VBG O2 Sat (Calc) VBG Base Excess VBG Potassium Glucose Lactate Sodium Potassium Chloride Carbon Dioxide Anion Gap BUN Creatinine Est GFR ( Amer) Est GFR (Non-Af Amer) Random Glucose Calcium Total Bilirubin AST ALT Alkaline Phosphatase Troponin I NT-Pro-B Natriuret Pep Total Protein Albumin Globulin Albumin/Globulin Ratio Venous Blood Potassium Urine Color Yellow Urine Clarity Clear Urine pH 7.0 Ur Specific [place] 1.008 Urine Protein Negative Urine Glucose (UA) Normal Urine Ketones Negative Urine Blood Negative Urine Nitrate Negative Urine Bilirubin Negative Urine Urobilinogen Normal Ur Leukocyte Esterase Neg Urine WBC (Auto) < 1 Ur Squamous Epith Cells < 1 Assessment & Plan (1) Pneumonia Status: Acute (2) Asthma exacerbation Status: Acute (3) COPD exacerbation Status: Acute
--- NOTE | 2017-05-30 17:07 | CP.PCM.HP ---
History of Present Illness - History of Present Illness History of Present Illness: 81 year old female with PMHx of asthma, DM is brought to the ED via BLS from the shelter for evaluation of pneumonia. Patient reports she feels sleepy all the time, upon examination patient is hypotensive and tachycardic. Patient denies any nausea, vomit, abdominal pain, diarrhea, headache, weakness, numbness. Present on Admission - Present on Admission Any Indicators Present on Admission: No History of DVT/PE: No History of Uncontrolled Diabetes: No Urinary Catheter: No Decubitus Ulcer Present: No Review of Systems - Review of Systems All systems: reviewed and no additional remarkable complaints except (as mentioned HPI) Past Patient History - Infectious Disease Hx of Infectious Diseases: None - Past Medical History & Family History Past Medical History?: Yes - Past Social History Smoking Status: Never Smoked - CARDIAC Hx Hypercholesterolemia: Yes Hx Hypertension: Yes - PULMONARY Hx Asthma: Yes Hx Bronchitis: Yes Hx Pneumonia: Yes - NEUROLOGICAL Hx Neurological Disorder: No - HEENT Hx HEENT Problems: Yes - RENAL Hx Chronic Kidney Disease: No - ENDOCRINE/METABOLIC Hx Diabetes Mellitus Type 2: Yes - HEMATOLOGICAL/ONCOLOGICAL Hx Blood Disorders: No - INTEGUMENTARY Hx Dermatological Problems: No - MUSCULOSKELETAL/RHEUMATOLOGICAL Hx Arthritis: Yes (R TKR; BACK PAIN) - GASTROINTESTINAL Hx Gastrointestinal Disorders: Yes Hx Gastroesophageal Reflux: Yes Other/Comment: hx of esophageal CA - GENITOURINARY/GYNECOLOGICAL Hx Genitourinary Disorders: Yes - PSYCHIATRIC Hx Substance Use: No - SURGICAL HISTORY Hx Surgeries: Yes Hx Breast Biopsy: Yes Hx Hysterectomy: Yes Hx Orthopedic Surgery: Yes (RTKR) Other/Comment: ESOPHAGEAL SX - ANESTHESIA Hx Anesthesia: Yes Hx Anesthesia Reactions: No Hx Malignant Hyperthermia: No Meds Allergies/Adverse Reactions: Allergies Allergy/AdvReac Type Severity Reaction Status Date / Time aspirin Allergy Severe RASH Verified 05/30/17 11:42 ciprofloxacin [From Cipro] Allergy Severe RASH Verified 05/30/17 11:42 ciprofloxacin HCl Allergy Severe RASH Verified 05/30/17 11:42 [From Cipro] nitrofurantoin Allergy Severe RASH Verified 05/30/17 11:42 [From Macrobid] nitrofurantoin Allergy Severe RASH Verified 05/30/17 11:42 macrocrystalline [From Macrobid] Penicillins Allergy Severe RASH Verified 05/30/17 11:42 Sulfa (Sulfonamide Allergy Severe RASH Verified 05/30/17 11:42 Antibiotics) azithromycin Allergy ITCHING Verified 05/30/17 11:42 Physical Exam - Head Exam Head Exam: NORMAL INSPECTION - Eye Exam Eye Exam: Normal appearance - ENT Exam ENT Exam: Mucous Membranes Moist - Respiratory Exam Respiratory Exam: Decreased Breath Sounds, Rhonchi - Cardiovascular Exam Cardiovascular Exam: REGULAR RHYTHM, +S1, +S2 - GI/Abdominal Exam GI & Abdominal Exam: Normal Bowel Sounds - Extremities Exam Extremities exam: Positive for: normal inspection - Neurological Exam Neurological exam: Alert Results - Vital Signs Recent Vital Signs: Last Vital Signs Temp 100.4 F H 05/30/17 16:48 Pulse 97 H 05/30/17 16:48 Resp 17 05/30/17 16:48 BP 118/69 05/30/17 16:48 Pulse Ox 99 05/30/17 16:48 - Labs Result Diagrams: 05/30/17 12:03 05/30/17 12:03 Labs: Laboratory Results - last 24 hr 05/30/17 05/30/17 05/30/17 12:03 12:03 12:46 WBC 6.1 D RBC 3.17 L Hgb 10.2 L D Hct 29.8 L MCV 94.2 D MCH 32.3 H MCHC 34.3 RDW 13.7 Plt Count 199 MPV 7.5 Neut % (Auto) 79.4 H Lymph % (Auto) 13.3 L Ray % (Auto) 6.3 Eos % (Auto) 0.3 Baso % (Auto) 0.7 Neut # 4.9 Lymph # 0.8 L Ray # 0.4 Eos # 0.0 Baso # 0.0 pO2 27 L VBG pH 7.49 H VBG pCO2 49 VBG HCO3 33.3 VBG Total CO2 38.8 H VBG O2 Sat (Calc) 60.3 VBG Base Excess 12.1 H VBG Potassium 3.0 L Glucose 115 H Lactate 1.3 Sodium 128 L 134.0 Potassium 3.0 L Chloride 90 L 98.0 Carbon Dioxide 33 H Anion Gap 7 L BUN 20 H Creatinine 0.6 L Est GFR ( Amer) > 60 Est GFR (Non-Af Amer) > 60 Random Glucose 116 H Calcium 7.6 L Total Bilirubin 0.5 AST 32 ALT 88 H D Alkaline Phosphatase 72 Troponin I 0.1040 NT-Pro-B Natriuret Pep 1440 H Total Protein 5.5 L Albumin 2.8 L Globulin 2.7 Albumin/Globulin Ratio 1.0 Venous Blood Potassium 3.0 L Urine Color Urine Clarity Urine pH Ur Specific [place] Urine Protein Urine Glucose (UA) Urine Ketones Urine Blood Urine Nitrate Urine Bilirubin Urine Urobilinogen Ur Leukocyte Esterase Urine WBC (Auto) Ur Squamous Epith Cells Influenza Typ A,B (EIA) 05/30/17 05/30/17 13:04 16:40 WBC RBC Hgb Hct MCV MCH MCHC RDW Plt Count MPV Neut % (Auto) Lymph % (Auto) Ray % (Auto) Eos % (Auto) Baso % (Auto) Neut # Lymph # Ray # Eos # Baso # pO2 VBG pH VBG pCO2 VBG HCO3 VBG Total CO2 VBG O2 Sat (Calc) VBG Base Excess VBG Potassium Glucose Lactate Sodium Potassium Chloride Carbon Dioxide Anion Gap BUN Creatinine Est GFR ( Amer) Est GFR (Non-Af Amer) Random Glucose Calcium Total Bilirubin AST ALT Alkaline Phosphatase Troponin I NT-Pro-B Natriuret Pep Total Protein Albumin Globulin Albumin/Globulin Ratio Venous Blood Potassium Urine Color Yellow Urine Clarity Clear Urine pH 7.0 Ur Specific [place] 1.008 Urine Protein Negative Urine Glucose (UA) Normal Urine Ketones Negative Urine Blood Negative Urine Nitrate Negative Urine Bilirubin Negative Urine Urobilinogen Normal Ur Leukocyte Esterase Neg Urine WBC (Auto) < 1 Ur Squamous Epith Cells < 1 Influenza Typ A,B (EIA) Negative for flu a/b Assessment & Plan (1) Pneumonia Status: Acute (2) COPD exacerbation Status: Acute (3) Dyspnea Status: Acute (4) HTN (hypertension) Status: Chronic - Assessment and Plan (Free Text) Plan: Abx as ordered by ID Appreciate ID consult Continue Prednisone Bronchodilators Hold losartan Solumedrol 40 mg IVP Q 8 hrs DVT/GI prophalaxis
[2017-05-30] MEDS ORDERED: Alum-Mag Hydrox-Simethicone Susp (30 mL) PO PRN (17:20)
[2017-05-30] MEDS ORDERED: Magnesium Hydroxide Susp 30 ml UD PO ONE (17:30)
[2017-05-30] MEDS: guaiFENesin 100 mg/5 ml Syrup UD PO SCH (19:42)
[2017-05-30] MEDS ORDERED: Potassium Chloride 20 mEq ER Tab PO ONE (20:00)
[2017-05-30] MEDS: Albuterol-Ipratrop 3 mg / 0.5 (3 ml) UD IH SCH (20:10)
[2017-05-30] MEDS: (Novolin R) Insulin Human Regular 100 units/ml vial SC SCH (21:55)
[2017-05-30] MEDS: MethylPREDNISolone 40 mg Vial IVP SCH (21:55)
[2017-05-30] MEDS: Aztreonam 1 GM in Sodium Chloride 0.9% 100 ML IVPB SCH (21:57)
[2017-05-30] MEDS ORDERED: MEROPENEM 1 GM IV SCH (22:00)
[2017-05-31] MEDS: guaiFENesin 100 mg/5 ml Syrup UD PO SCH ×6 (00:23→21:51)
--- NOTE | 2017-05-31 00:57 | CARD ---
APPROVED REPORT EKG Measurement Heart [id number] [id number] <Conclusion> Sinus tachycardia Nonspecific ST and T wave abnormality Abnormal ECG
[2017-05-31] MEDS: Albuterol-Ipratrop 3 mg / 0.5 (3 ml) UD IH SCH ×4 (01:08→21:00)
[2017-05-31] MEDS: Vancomycin 1 gm/NS 200 ml 1 GM/200 ML BAG IVPB SCH ×2 (03:37→15:09)
[2017-05-31] MEDS: MethylPREDNISolone 40 mg Vial IVP SCH ×3 (05:11→21:51)
[2017-05-31] MEDS: Aztreonam 1 GM in Sodium Chloride 0.9% 100 ML IVPB SCH ×3 (05:12→21:51)
[2017-05-31 08:12] LABS: BLOOD UREA NITROGEN 18 mg/dL (7-17); CALCIUM 7.4 mg/dl (8.6-10.4); GFR AFRICAN-AMERICAN > 60; GFR NON-AFRICAN AMERICAN > 60; MAGNESIUM 1.5 mg/dL (1.6-2.3)
[2017-05-31] MEDS: (Novolin R) Insulin Human Regular 100 units/ml vial SC SCH ×4 (08:49→22:27)
[2017-05-31] MEDS: Magnesium Sulfate 1 gm in D5W 1 GM/100 ML BAG IVPB SCH ×2 (08:52→09:20)
[2017-05-31] MEDS: Multiple Vitamins Tab PO SCH (09:19)
[2017-05-31] MEDS: POLYETHYLENE GLYCOL 3350 17 GM/Dose PACKET PO SCH (09:20)
[2017-05-31] MEDS: Enoxaparin 40 mg Syringe SC SCH (09:20)
[2017-05-31] MEDS: Potassium Chloride 10 mEq ER Tab PO SCH (09:20)
--- NOTE | 2017-05-31 18:13 | CP.PCM.PN ---
Subjective - Date & Time of Evaluation Date of Evaluation: 05/31/17 Time of Evaluation: 07:00 - Subjective Subjective: more awake ' congested but afebrile son is at bedside NAD cultures pending- grew Pseudomonas in may 06 Objective - Vital Signs/Intake and Output Vital Signs (last 24 hours): Temp Pulse Resp BP Pulse Ox 98.4 F 95 H 20 113/75 98 05/31/17 15:00 05/31/17 16:00 05/31/17 15:00 05/31/17 15:00 05/31/17 15:00 Intake and Output: 05/31/17 05/31/17 06:59 18:59 Intake Total 300 Balance 300 - Medications Medications: Current Medications Acetaminophen (Tylenol 325mg Tab) 650 mg PO Q6 PRN PRN Reason: Temperature Acetaminophen (Tylenol 325mg Tab) 325 mg PO Q4 PRN PRN Reason: Pain, moderate (4-7) Al Hydrox/Mg Hydrox/Simethicone (Maalox Plus 30 Ml) 30 ml PO Q6 PRN PRN Reason: Constipation Albuterol/Ipratropium (Duoneb 3 Mg/0.5 Mg (3 Ml) Ud) 3 ml IH RQ6 [facility] Last Admin: 05/31/17 14:04 Dose: 3 ml Benzonatate (Tessalon Perles) 100 mg PO DAILY [facility] Last Admin: 05/31/17 09:19 Dose: 100 mg Budesonide (Pulmicort Respules) 0.5 mg IH RQ12 PRN PRN Reason: Shortness of Breath Docusate Sodium (Colace) 100 mg PO DAILY [facility] Last Admin: 05/31/17 09:18 Dose: 100 mg Enoxaparin Sodium (Lovenox) 40 mg SC DAILY [facility] Last Admin: 05/31/17 09:20 Dose: 40 mg Famotidine (Pepcid) 20 mg PO DAILY [facility] Last Admin: 05/31/17 09:17 Dose: 20 mg Furosemide (Lasix) 40 mg PO DAILY [facility] Last Admin: 05/31/17 09:19 Dose: 40 mg Guaifenesin (Robitussin) 100 mg PO Q4 [facility] Last Admin: 05/31/17 17:42 Dose: 100 mg Aztreonam 1 gm/ Sodium (Chloride) 100 mls @ 100 mls/hr IVPB Q8 [facility] Last Admin: 05/31/17 13:29 Dose: 100 mls/hr Vancomycin/Sodium Chloride (Vancomycin 1 Gm/Ns 200 Ml) 1 gm in 200 mls @ 133 mls/hr IVPB Q12H [facility] Stop: 06/05/17 03:01 Last Admin: 05/31/17 15:09 Dose: 133 mls/hr Insulin Human Regular (Novolin R) 0 unit SC ACHS [facility] PRN Reason: Protocol Last Admin: 05/31/17 17:42 Dose: 3 unit Loratadine (Claritin) 10 mg PO DAILY [facility] Last Admin: 05/31/17 09:20 Dose: 10 mg Methylprednisolone (Solu-Medrol) 40 mg IVP Q8 [facility] Last Admin: 05/31/17 13:30 Dose: 40 mg Montelukast Sodium (Singulair) 10 mg PO DAILY [facility] Last Admin: 05/31/17 09:21 Dose: 10 mg Multivitamins (Hexavitamin) 1 tab PO DAILY [facility] Last Admin: 05/31/17 09:19 Dose: 1 tab Nifedipine (Procardia) 10 mg PO DAILY [facility] Last Admin: 05/31/17 09:17 Dose: 10 mg Polyethylene Glycol (Miralax) 17 gm PO DAILY [facility] Last Admin: 05/31/17 09:20 Dose: 17 gm Potassium Chloride (Klor-Con 10) 10 meq PO DAILY [facility] Last Admin: 05/31/17 09:20 Dose: 10 meq Rosuvastatin Calcium (Crestor) 10 mg PO HS [facility] Last Admin: 05/30/17 21:55 Dose: 10 mg Sennosides (Senokot Tab) 2 mg PO BID [facility] Last Admin: 05/31/17 17:41 Dose: 2 mg - Labs Labs: 05/30/17 12:03 05/31/17 06:59 - Constitutional Appears: Non-toxic, Cachectic, Chronically Ill - Head Exam Head Exam: NORMOCEPHALIC - Eye Exam Eye Exam: PERRL. absent: Scleral icterus - ENT Exam ENT Exam: Mucous Membranes Dry, Normal External Ear Exam - Neck Exam Neck Exam: absent: Lymphadenopathy - Respiratory Exam Respiratory Exam: Decreased Breath Sounds, Rales, Rhonchi - Cardiovascular Exam Cardiovascular Exam: Tachycardia, REGULAR RHYTHM, +S1, +S2 - GI/Abdominal Exam GI & Abdominal Exam: Distended, Soft. absent: Tenderness - Rectal Exam Rectal Exam: Deferred - Exam Exam: NORMAL INSPECTION - Extremities Exam Extremities Exam: absent: Pedal Edema - Back Exam Back Exam: absent: CVA tenderness (L), CVA tenderness (R) - Neurological Exam Neurological Exam: Alert, Awake, Oriented x3 - Psychiatric Exam Psychiatric exam: Depressed - Skin Skin Exam: Dry Assessment and Plan (1) Pneumonia Status: Acute (2) Asthma exacerbation Status: Acute (3) COPD exacerbation Status: Acute - Assessment and Plan (Free Text) Assessment: cont rx pneumonia await cultures will follow
--- NOTE | 2017-05-31 20:29 | CP.PCM.PN ---
Subjective - Date & Time of Evaluation Date of Evaluation: 05/31/17 Time of Evaluation: 20:29 Objective - Vital Signs/Intake and Output Vital Signs (last 24 hours): Temp Pulse Resp BP Pulse Ox 98.4 F 95 H 20 113/75 98 05/31/17 15:00 05/31/17 16:00 05/31/17 15:00 05/31/17 15:00 05/31/17 15:00 - Medications Medications: Current Medications Acetaminophen (Tylenol 325mg Tab) 650 mg PO Q6 PRN PRN Reason: Temperature Acetaminophen (Tylenol 325mg Tab) 325 mg PO Q4 PRN PRN Reason: Pain, moderate (4-7) Al Hydrox/Mg Hydrox/Simethicone (Maalox Plus 30 Ml) 30 ml PO Q6 PRN PRN Reason: Constipation Albuterol/Ipratropium (Duoneb 3 Mg/0.5 Mg (3 Ml) Ud) 3 ml IH RQ6 [facility] Last Admin: 05/31/17 14:04 Dose: 3 ml Benzonatate (Tessalon Perles) 100 mg PO DAILY [facility] Last Admin: 05/31/17 09:19 Dose: 100 mg Budesonide (Pulmicort Respules) 0.5 mg IH RQ12 PRN PRN Reason: Shortness of Breath Docusate Sodium (Colace) 100 mg PO DAILY [facility] Last Admin: 05/31/17 09:18 Dose: 100 mg Enoxaparin Sodium (Lovenox) 40 mg SC DAILY [facility] Last Admin: 05/31/17 09:20 Dose: 40 mg Famotidine (Pepcid) 20 mg PO DAILY [facility] Last Admin: 05/31/17 09:17 Dose: 20 mg Furosemide (Lasix) 40 mg PO DAILY [facility] Last Admin: 05/31/17 09:19 Dose: 40 mg Guaifenesin (Robitussin) 100 mg PO Q4 [facility] Last Admin: 05/31/17 17:42 Dose: 100 mg Aztreonam 1 gm/ Sodium (Chloride) 100 mls @ 100 mls/hr IVPB Q8 [facility] Last Admin: 05/31/17 13:29 Dose: 100 mls/hr Vancomycin/Sodium Chloride (Vancomycin 1 Gm/Ns 200 Ml) 1 gm in 200 mls @ 133 mls/hr IVPB Q12H [facility] Stop: 06/05/17 03:01 Last Admin: 05/31/17 15:09 Dose: 133 mls/hr Insulin Human Regular (Novolin R) 0 unit SC ACHS [facility] PRN Reason: Protocol Last Admin: 05/31/17 17:42 Dose: 3 unit Loratadine (Claritin) 10 mg PO DAILY [facility] Last Admin: 05/31/17 09:20 Dose: 10 mg Methylprednisolone (Solu-Medrol) 40 mg IVP Q8 [facility] Last Admin: 05/31/17 13:30 Dose: 40 mg Montelukast Sodium (Singulair) 10 mg PO DAILY [facility] Last Admin: 05/31/17 09:21 Dose: 10 mg Multivitamins (Hexavitamin) 1 tab PO DAILY [facility] Last Admin: 05/31/17 09:19 Dose: 1 tab Nifedipine (Procardia) 10 mg PO DAILY [facility] Last Admin: 05/31/17 09:17 Dose: 10 mg Polyethylene Glycol (Miralax) 17 gm PO DAILY [facility] Last Admin: 05/31/17 09:20 Dose: 17 gm Potassium Chloride (Klor-Con 10) 10 meq PO DAILY [facility] Last Admin: 05/31/17 09:20 Dose: 10 meq Rosuvastatin Calcium (Crestor) 10 mg PO HS [facility] Last Admin: 05/30/17 21:55 Dose: 10 mg Sennosides (Senokot Tab) 2 mg PO BID [facility] Last Admin: 05/31/17 17:41 Dose: 2 mg - Labs Labs: 05/30/17 12:03 05/31/17 06:59 Assessment and Plan (1) Pneumonia Status: Acute (2) COPD exacerbation Status: Acute (3) Dyspnea Status: Acute (4) HTN (hypertension) Status: Chronic
[2017-06-01] MEDS: guaiFENesin 100 mg/5 ml Syrup UD PO SCH ×6 (00:09→20:40)
[2017-06-01] MEDS: Albuterol-Ipratrop 3 mg / 0.5 (3 ml) UD IH SCH ×4 (02:11→20:00)
[2017-06-01] MEDS: Vancomycin 1 gm/NS 200 ml 1 GM/200 ML BAG IVPB SCH ×2 (02:47→20:39)
[2017-06-01] MEDS: MethylPREDNISolone 40 mg Vial IVP SCH ×3 (05:48→21:30)
[2017-06-01] MEDS: Aztreonam 1 GM in Sodium Chloride 0.9% 100 ML IVPB SCH ×3 (06:39→21:46)
[2017-06-01 06:49] LABS: BLOOD UREA NITROGEN 19 mg/dL (7-17); CALCIUM 7.3 mg/dl (8.6-10.4); GFR AFRICAN-AMERICAN > 60; GFR NON-AFRICAN AMERICAN > 60; MAGNESIUM 1.9 mg/dL (1.6-2.3)
[2017-06-01] MEDS: (Novolin R) Insulin Human Regular 100 units/ml vial SC SCH ×4 (08:26→21:48)
[2017-06-01] MEDS: Enoxaparin 40 mg Syringe SC SCH (09:43)
[2017-06-01] MEDS: POLYETHYLENE GLYCOL 3350 17 GM/Dose PACKET PO SCH (09:43)
[2017-06-01] MEDS: Multiple Vitamins Tab PO SCH (09:44)
[2017-06-01] MEDS: Potassium Chloride 10 mEq ER Tab PO SCH (09:44)
--- NOTE | 2017-06-01 15:52 | CP.PCM.PN ---
Subjective - Date & Time of Evaluation Date of Evaluation: 06/01/17 Time of Evaluation: 15:52 Objective - Vital Signs/Intake and Output Vital Signs (last 24 hours): Temp Pulse Resp BP Pulse Ox 97.3 F L 107 H 18 107/70 98 06/01/17 08:15 06/01/17 08:15 06/01/17 08:15 06/01/17 08:15 06/01/17 08:15 Intake and Output: 06/01/17 06/01/17 06:59 18:59 Intake Total 700 Balance 700 - Medications Medications: Current Medications Acetaminophen (Tylenol 325mg Tab) 650 mg PO Q6 PRN PRN Reason: Temperature Last Admin: 05/31/17 21:53 Dose: 650 mg Acetaminophen (Tylenol 325mg Tab) 325 mg PO Q4 PRN PRN Reason: Pain, moderate (4-7) Al Hydrox/Mg Hydrox/Simethicone (Maalox Plus 30 Ml) 30 ml PO Q6 PRN PRN Reason: Constipation Albuterol/Ipratropium (Duoneb 3 Mg/0.5 Mg (3 Ml) Ud) 3 ml IH RQ6 [facility] Last Admin: 06/01/17 13:17 Dose: 3 ml Benzonatate (Tessalon Perles) 100 mg PO DAILY [facility] Last Admin: 06/01/17 09:44 Dose: 100 mg Budesonide (Pulmicort Respules) 0.5 mg IH RQ12 PRN PRN Reason: Shortness of Breath Docusate Sodium (Colace) 100 mg PO DAILY [facility] Last Admin: 06/01/17 09:44 Dose: 100 mg Enoxaparin Sodium (Lovenox) 40 mg SC DAILY [facility] Last Admin: 06/01/17 09:43 Dose: 40 mg Famotidine (Pepcid) 20 mg PO DAILY [facility] Last Admin: 06/01/17 09:44 Dose: 20 mg Furosemide (Lasix) 40 mg PO DAILY [facility] Last Admin: 06/01/17 09:43 Dose: Not Given Guaifenesin (Robitussin) 100 mg PO Q4 [facility] Last Admin: 06/01/17 12:29 Dose: 100 mg Aztreonam 1 gm/ Sodium (Chloride) 100 mls @ 100 mls/hr IVPB Q8 [facility] Last Admin: 06/01/17 14:37 Dose: 100 mls/hr Potassium Chloride (Potassium Chloride 20 Meq/100 Ml) 20 meq in 100 mls @ 50 mls/hr IVPB Q2 [facility] Stop: 06/01/17 17:59 Last Admin: 06/01/17 12:29 Dose: 50 mls/hr Insulin Human Regular (Novolin R) 0 unit SC ACHS [facility] PRN Reason: Protocol Last Admin: 06/01/17 12:28 Dose: 3 unit Loratadine (Claritin) 10 mg PO DAILY [facility] Last Admin: 06/01/17 09:45 Dose: 10 mg Methylprednisolone (Solu-Medrol) 40 mg IVP Q8 [facility] Last Admin: 06/01/17 14:36 Dose: 40 mg Montelukast Sodium (Singulair) 10 mg PO DAILY [facility] Last Admin: 06/01/17 09:44 Dose: 10 mg Multivitamins (Hexavitamin) 1 tab PO DAILY [facility] Last Admin: 06/01/17 09:44 Dose: 1 tab Nifedipine (Procardia) 10 mg PO DAILY [facility] Last Admin: 06/01/17 09:44 Dose: 10 mg Polyethylene Glycol (Miralax) 17 gm PO DAILY [facility] Last Admin: 06/01/17 09:43 Dose: 17 gm Potassium Chloride (Klor-Con 10) 10 meq PO DAILY [facility] Last Admin: 06/01/17 09:44 Dose: 10 meq Rosuvastatin Calcium (Crestor) 10 mg PO HS [facility] Last Admin: 05/31/17 21:51 Dose: 10 mg Sennosides (Senokot Tab) 2 mg PO BID [facility] Last Admin: 06/01/17 09:51 Dose: 2 mg - Labs Labs: 05/30/17 12:03 06/01/17 06:20 Assessment and Plan (1) Pneumonia Status: Acute (2) COPD exacerbation Status: Acute (3) Dyspnea Status: Acute (4) HTN (hypertension) Status: Chronic
--- NOTE | 2017-06-01 19:05 | CP.PCM.PN ---
Subjective - Date & Time of Evaluation Date of Evaluation: 06/01/17 Time of Evaluation: 08:00 - Subjective Subjective: vanco level elevated dose adjusted IV rx in progress for pneumonia Objective - Vital Signs/Intake and Output Vital Signs (last 24 hours): Temp Pulse Resp BP Pulse Ox 98.2 F 97 H 20 144/79 100 06/01/17 15:20 06/01/17 16:00 06/01/17 15:20 06/01/17 15:20 06/01/17 15:20 - Medications Medications: Current Medications Acetaminophen (Tylenol 325mg Tab) 650 mg PO Q6 PRN PRN Reason: Temperature Last Admin: 05/31/17 21:53 Dose: 650 mg Acetaminophen (Tylenol 325mg Tab) 325 mg PO Q4 PRN PRN Reason: Pain, moderate (4-7) Al Hydrox/Mg Hydrox/Simethicone (Maalox Plus 30 Ml) 30 ml PO Q6 PRN PRN Reason: Constipation Albuterol/Ipratropium (Duoneb 3 Mg/0.5 Mg (3 Ml) Ud) 3 ml IH RQ6 [facility] Last Admin: 06/01/17 13:17 Dose: 3 ml Benzonatate (Tessalon Perles) 100 mg PO DAILY [facility] Last Admin: 06/01/17 09:44 Dose: 100 mg Budesonide (Pulmicort Respules) 0.5 mg IH RQ12 PRN PRN Reason: Shortness of Breath Docusate Sodium (Colace) 100 mg PO DAILY [facility] Last Admin: 06/01/17 09:44 Dose: 100 mg Enoxaparin Sodium (Lovenox) 40 mg SC DAILY [facility] Last Admin: 06/01/17 09:43 Dose: 40 mg Famotidine (Pepcid) 20 mg PO DAILY [facility] Last Admin: 06/01/17 09:44 Dose: 20 mg Furosemide (Lasix) 40 mg PO DAILY [facility] Last Admin: 06/01/17 09:43 Dose: Not Given Guaifenesin (Robitussin) 100 mg PO Q4 [facility] Last Admin: 06/01/17 16:30 Dose: 100 mg Aztreonam 1 gm/ Sodium (Chloride) 100 mls @ 100 mls/hr IVPB Q8 [facility] Last Admin: 06/01/17 14:37 Dose: 100 mls/hr Insulin Human Regular (Novolin R) 0 unit SC ACHS [facility] PRN Reason: Protocol Last Admin: 06/01/17 17:50 Dose: 2 unit Loratadine (Claritin) 10 mg PO DAILY [facility] Last Admin: 06/01/17 09:45 Dose: 10 mg Methylprednisolone (Solu-Medrol) 40 mg IVP Q8 [facility] Last Admin: 06/01/17 14:36 Dose: 40 mg Montelukast Sodium (Singulair) 10 mg PO DAILY [facility] Last Admin: 06/01/17 09:44 Dose: 10 mg Multivitamins (Hexavitamin) 1 tab PO DAILY [facility] Last Admin: 06/01/17 09:44 Dose: 1 tab Nifedipine (Procardia) 10 mg PO DAILY [facility] Last Admin: 06/01/17 09:44 Dose: 10 mg Polyethylene Glycol (Miralax) 17 gm PO DAILY [facility] Last Admin: 06/01/17 09:43 Dose: 17 gm Potassium Chloride (Klor-Con 10) 10 meq PO DAILY [facility] Last Admin: 06/01/17 09:44 Dose: 10 meq Rosuvastatin Calcium (Crestor) 10 mg PO HS [facility] Last Admin: 05/31/17 21:51 Dose: 10 mg Sennosides (Senokot Tab) 2 mg PO BID [facility] Last Admin: 06/01/17 17:48 Dose: 2 mg - Labs Labs: 05/30/17 12:03 06/01/17 06:20 - Constitutional Appears: Confused, Chronically Ill - Head Exam Head Exam: NORMOCEPHALIC - Eye Exam Eye Exam: absent: Scleral icterus - ENT Exam ENT Exam: Mucous Membranes Dry - Neck Exam Neck Exam: absent: Lymphadenopathy - Respiratory Exam Respiratory Exam: Decreased Breath Sounds - Cardiovascular Exam Cardiovascular Exam: REGULAR RHYTHM - GI/Abdominal Exam GI & Abdominal Exam: Distended - Rectal Exam Rectal Exam: Deferred - Exam Exam: NORMAL INSPECTION Assessment and Plan (1) Pneumonia Status: Acute (2) Asthma exacerbation Status: Acute (3) COPD exacerbation Status: Acute
[2017-06-02] MEDS: guaiFENesin 100 mg/5 ml Syrup UD PO SCH ×6 (00:12→20:25)
[2017-06-02] MEDS: Albuterol-Ipratrop 3 mg / 0.5 (3 ml) UD IH SCH ×4 (01:17→22:34)
[2017-06-02] MEDS: Aztreonam 1 GM in Sodium Chloride 0.9% 100 ML IVPB SCH ×3 (05:47→22:35)
[2017-06-02] MEDS: MethylPREDNISolone 40 mg Vial IVP SCH ×3 (05:47→22:13)
[2017-06-02 06:55] LABS: MEAN CELL VOLUME 94.6 fL (81.0-99.0); MEAN CORPUSCULAR HEMOGLOBIN 32.9 pg (27.0-31.0); MEAN CORPUSCULAR HGB CONC 34.7 g/dL (33.0-37.0); MEAN PLATELET VOLUME 8.1 fL (7.2-11.7); RBC 2.72 Mil/uL (3.80-5.20); WHITE BLOOD COUNT 10.8 K/uL (4.8-10.8)
[2017-06-02 07:01] LABS: ALBUMIN 2.5 g/dL (3.5-5.0); ALT/SGPT 80 U/L (9-52); AST/SGOT 32 U/L (14-36); BLOOD UREA NITROGEN 18 mg/dL (7-17); CALCIUM 7.9 mg/dl (8.6-10.4); GFR AFRICAN-AMERICAN > 60; GFR NON-AFRICAN AMERICAN > 60
[2017-06-02] MEDS: Budesonide 0.5 mg/2 ml Inhal Susp UD IH PRN (07:11)
[2017-06-02] MEDS: (Novolin R) Insulin Human Regular 100 units/ml vial SC SCH ×4 (08:30→21:54)
[2017-06-02] MEDS: Enoxaparin 40 mg Syringe SC SCH (10:02)
[2017-06-02] MEDS: POLYETHYLENE GLYCOL 3350 17 GM/Dose PACKET PO SCH (10:03)
[2017-06-02] MEDS: Potassium Chloride 10 mEq ER Tab PO SCH (10:03)
[2017-06-02] MEDS: Multiple Vitamins Tab PO SCH (10:05)
--- NOTE | 2017-06-02 17:10 | CP.PCM.PN ---
Subjective - Date & Time of Evaluation Date of Evaluation: 06/02/17 Time of Evaluation: 17:10 Objective - Vital Signs/Intake and Output Vital Signs (last 24 hours): Temp Pulse Resp BP Pulse Ox 97.4 F L 102 H 18 143/85 97 06/02/17 15:22 06/02/17 15:22 06/02/17 15:22 06/02/17 15:22 06/02/17 15:22 Intake and Output: 06/02/17 06/02/17 06:59 18:59 Intake Total 600 Balance 600 - Medications Medications: Current Medications Acetaminophen (Tylenol 325mg Tab) 650 mg PO Q6 PRN PRN Reason: Temperature Last Admin: 06/02/17 04:00 Dose: 650 mg Acetaminophen (Tylenol 325mg Tab) 325 mg PO Q4 PRN PRN Reason: Pain, moderate (4-7) Al Hydrox/Mg Hydrox/Simethicone (Maalox Plus 30 Ml) 30 ml PO Q6 PRN PRN Reason: Constipation Albuterol/Ipratropium (Duoneb 3 Mg/0.5 Mg (3 Ml) Ud) 3 ml IH RQ6 [facility] Last Admin: 06/02/17 13:57 Dose: 3 ml Benzonatate (Tessalon Perles) 100 mg PO DAILY [facility] Last Admin: 06/02/17 11:58 Dose: 100 mg Budesonide (Pulmicort Respules) 0.5 mg IH RQ12 PRN PRN Reason: Shortness of Breath Last Admin: 06/02/17 07:11 Dose: 0.5 mg Docusate Sodium (Colace) 100 mg PO DAILY [facility] Last Admin: 06/02/17 10:03 Dose: 100 mg Enoxaparin Sodium (Lovenox) 40 mg SC DAILY [facility] Last Admin: 06/02/17 10:02 Dose: 40 mg Famotidine (Pepcid) 20 mg PO DAILY [facility] Last Admin: 06/02/17 10:04 Dose: 20 mg Furosemide (Lasix) 40 mg PO DAILY [facility] Last Admin: 06/02/17 10:04 Dose: 40 mg Guaifenesin (Robitussin) 100 mg PO Q4 [facility] Last Admin: 06/02/17 16:53 Dose: Not Given Aztreonam 1 gm/ Sodium (Chloride) 100 mls @ 100 mls/hr IVPB Q8 [facility] Last Admin: 06/02/17 13:55 Dose: 100 mls/hr Vancomycin/Sodium Chloride (Vancomycin 1 Gm/Ns 200 Ml) 1 gm in 200 mls @ 133 mls/hr IVPB Q24H [facility] Stop: 06/06/17 20:01 Last Admin: 06/01/17 20:39 Dose: 133 mls/hr Insulin Human Regular (Novolin R) 0 unit SC ACHS [facility] PRN Reason: Protocol Last Admin: 06/02/17 12:29 Dose: Not Given Lactulose (Enulose) 20 gm PO HS PRN PRN Reason: Constipation Last Admin: 06/01/17 21:30 Dose: 20 gm Loratadine (Claritin) 10 mg PO DAILY [facility] Last Admin: 06/02/17 10:03 Dose: 10 mg Methylprednisolone (Solu-Medrol) 40 mg IVP Q8 [facility] Last Admin: 06/02/17 14:02 Dose: 40 mg Montelukast Sodium (Singulair) 10 mg PO DAILY [facility] Last Admin: 06/02/17 11:58 Dose: 10 mg Multivitamins (Hexavitamin) 1 tab PO DAILY [facility] Last Admin: 06/02/17 10:05 Dose: 1 tab Nifedipine (Procardia) 10 mg PO DAILY [facility] Last Admin: 06/02/17 11:56 Dose: 10 mg Polyethylene Glycol (Miralax) 17 gm PO DAILY [facility] Last Admin: 06/02/17 10:03 Dose: 17 gm Potassium Chloride (Klor-Con 10) 10 meq PO DAILY [facility] Last Admin: 06/02/17 10:03 Dose: 10 meq Rosuvastatin Calcium (Crestor) 10 mg PO HS [facility] Last Admin: 06/01/17 21:30 Dose: 10 mg Sennosides (Senokot Tab) 17.2 mg PO BID [facility] Last Admin: 06/02/17 14:04 Dose: 17.2 mg - Labs Labs: 06/02/17 06:34 06/02/17 06:34 Assessment and Plan (1) Pneumonia Status: Acute (2) COPD exacerbation Status: Acute (3) Dyspnea Status: Acute (4) HTN (hypertension) Status: Chronic
--- NOTE | 2017-06-02 19:23 | CON ---
DATE: 06/02/2017 NEUROLOGY CONSULTATION CHIEF COMPLAINT: Bilateral lower extremity weakness. HISTORY OF PRESENT ILLNESS: This is a 81-year-old woman with history of chronic back pain, arthritis, bronchitis, hypertension, and hypercholesterolemia, who presented with shortness of breath from the [facility] with slightly hypertensive and tachycardiac; therefore, the evaluation been treated for underlying pneumonia, left lower lobe. I was consulted for bilateral lower extremity weakness. She does have features of diabetic peripheral neuropathy on examination, history of right TKR. Her MRI of the lumbosacral spine result is pending disk degenerative disease multilevel throughout, has mild spondylolisthesis but official report waiting for the radiologist. She basically needs an MRI of the brain and MRI of the thoracic spine to asses for any abnormalities causing her chronic bilateral lower extremity weakness. Decreased sensation until lower extremities, but DTR's are 2+ throughout and 1 at both knees and absent at the ankles. She is able to fill her bladder and able to urinate. PAST MEDICAL HISTORY: Diabetes, arthritis, chronic back pain, and history of right TKR. SOCIAL HISTORY: No illicit drug use, smoking, or EtOH abuse. REVIEW OF SYSTEMS: A 14-point review of system is negative except as in HPI. FAMILY HISTORY: Noncontributory. ALLERGIES: ALLERGIC TO ASPIRIN, CIPROFLOXACIN, AND NITROFURANTOIN. MEDICATIONS: Reviewed by nurse reconciliation sheet. PHYSICAL EXAMINATION: GENERAL: The patient is sitting up in bed, in no acute distress. VITAL SIGNS: Temperature of 97.9, pulse rate 103, blood pressure 166/98, respiratory rate of 20, and oxygen saturation 96% via nasal cannula. HEENT: Atraumatic, normocephalic. PERRLA. Extraocular muscles are intact. NECK: Supple. No JVD. No adenopathy noted. LUNGS: Decreased breath sounds bilaterally. HEART: S1 and S2. Normal rate and rhythm. No murmurs, rubs, or gallops. ABDOMEN: Soft, nontender, and nondistended. Bowel sounds present. EXTREMITIES: No clubbing. No cyanosis. Peripheral pulses are 2+ felt bilaterally. NEUROLOGIC: The patient is alert, oriented to person, place, month, and year. Speech is fluent without any errors. Cranial nerves II through XII are intact. Motor: Moves all extremities equally. Toes are downgoing bilaterally. Sensory: Decreased light touch, pinprick up to the calves bilaterally. Decreased vibration of the toes. DTRs are 2+ throughout, 1 at the both knees, and absent at the ankles. Coordination: [place]-[id number] intact. Gait is deferred for now. She is able to bend her knees and drag her legs, but has difficulty in lifting it up, says it hurts her lower back. LABORATORY DATA: Sodium 130, potassium 3.9, chloride of 97, carbon dioxide 31, BUN of 18, creatinine 0.5, and random glucose of 151. ASSESSMENT AND PLAN: This is a 81-year-old woman with history of type 2 diabetes mellitus, hypertension, chronic arthritis, chronic low back pain, and presenting for shortness of breath and generalized weakness, found to have fever and tachycardia. She is undergoing medical management for underlying pneumonia. I was consulted for bilateral lower extremity weakness. She has severe diabetic neuropathy on examination. She proposed underlying arthritis since she has a right total knee arthroplasty. She is very deconditioned. At this time, we recommended. 1. Physical and occupational therapy and most likely will benefit from a subacute or acute rehab. 2. Diabetic diet and keep blood sugars between 140 to 180. 3. MRI of the brain and MRI of T-spine and lumber spine to asses for any abnormalities, aid in her lower extremity weakness. 4. Continue with treatment for underlying pneumonia. Once again, thank you for this consult. Donis Vargas MD [facility]
[2017-06-02] MEDS: Vancomycin 1 gm/NS 200 ml 1 GM/200 ML BAG IVPB SCH (20:30)
[2017-06-03] MEDS: guaiFENesin 100 mg/5 ml Syrup UD PO SCH ×6 (00:07→17:31)
[2017-06-03] MEDS: Albuterol-Ipratrop 3 mg / 0.5 (3 ml) UD IH SCH ×5 (01:53→20:10)
[2017-06-03] MEDS: Aztreonam 1 GM in Sodium Chloride 0.9% 100 ML IVPB SCH ×3 (05:17→22:19)
[2017-06-03] MEDS: MethylPREDNISolone 40 mg Vial IVP SCH ×3 (05:17→22:18)
[2017-06-03] MEDS: (Novolin R) Insulin Human Regular 100 units/ml vial SC SCH ×4 (08:30→22:25)
[2017-06-03] MEDS: Enoxaparin 40 mg Syringe SC SCH (09:57)
[2017-06-03] MEDS: POLYETHYLENE GLYCOL 3350 17 GM/Dose PACKET PO SCH (09:58)
[2017-06-03] MEDS: Multiple Vitamins Tab PO SCH (10:00)
[2017-06-03] MEDS: Potassium Chloride 10 mEq ER Tab PO SCH (10:00)
--- NOTE | 2017-06-03 12:34 | CP.PCM.PN ---
Subjective - Date & Time of Evaluation Date of Evaluation: 06/03/17 Time of Evaluation: 12:34 Objective - Vital Signs/Intake and Output Vital Signs (last 24 hours): Temp Pulse Resp BP Pulse Ox 98 F 89 18 114/62 98 06/03/17 07:05 06/03/17 08:00 06/03/17 07:05 06/03/17 09:59 06/03/17 07:05 Intake and Output: 06/03/17 06/03/17 06:59 18:59 Intake Total 110 Output Total 1000 Balance -890 - Medications Medications: Current Medications Acetaminophen (Tylenol 325mg Tab) 650 mg PO Q6 PRN PRN Reason: Temperature Last Admin: 06/03/17 10:03 Dose: 650 mg Acetaminophen (Tylenol 325mg Tab) 325 mg PO Q4 PRN PRN Reason: Pain, moderate (4-7) Al Hydrox/Mg Hydrox/Simethicone (Maalox Plus 30 Ml) 30 ml PO Q6 PRN PRN Reason: Constipation Albuterol/Ipratropium (Duoneb 3 Mg/0.5 Mg (3 Ml) Ud) 3 ml IH RQ6 [facility] Last Admin: 06/03/17 08:18 Dose: 3 ml Benzonatate (Tessalon Perles) 100 mg PO DAILY [facility] Last Admin: 06/03/17 10:01 Dose: 100 mg Budesonide (Pulmicort Respules) 0.5 mg IH RQ12 PRN PRN Reason: Shortness of Breath Last Admin: 06/02/17 07:11 Dose: 0.5 mg Docusate Sodium (Colace) 100 mg PO DAILY [facility] Last Admin: 06/03/17 09:59 Dose: 100 mg Enoxaparin Sodium (Lovenox) 40 mg SC DAILY [facility] Last Admin: 06/03/17 09:57 Dose: 40 mg Famotidine (Pepcid) 20 mg PO DAILY [facility] Last Admin: 06/03/17 10:00 Dose: 20 mg Furosemide (Lasix) 40 mg PO DAILY [facility] Last Admin: 06/03/17 09:59 Dose: 40 mg Guaifenesin (Robitussin) 100 mg PO Q4 [facility] Last Admin: 06/03/17 03:23 Dose: 100 mg Aztreonam 1 gm/ Sodium (Chloride) 100 mls @ 100 mls/hr IVPB Q8 [facility] Last Admin: 06/03/17 05:17 Dose: 100 mls/hr Vancomycin/Sodium Chloride (Vancomycin 1 Gm/Ns 200 Ml) 1 gm in 200 mls @ 133 mls/hr IVPB Q24H [facility] Stop: 06/06/17 20:01 Last Admin: 06/02/17 20:30 Dose: 133 mls/hr Insulin Human Regular (Novolin R) 0 unit SC ACHS IKE PRN Reason: Protocol Last Admin: 06/03/17 11:39 Dose: 4 unit Lactulose (Enulose) 20 gm PO HS PRN PRN Reason: Constipation Last Admin: 06/01/17 21:30 Dose: 20 gm Loratadine (Claritin) 10 mg PO DAILY [facility] Last Admin: 06/03/17 10:00 Dose: 10 mg Methylprednisolone (Solu-Medrol) 40 mg IVP Q8 [facility] Last Admin: 06/03/17 05:17 Dose: 40 mg Montelukast Sodium (Singulair) 10 mg PO DAILY [facility] Last Admin: 06/03/17 10:02 Dose: 10 mg Multivitamins (Hexavitamin) 1 tab PO DAILY [facility] Last Admin: 06/03/17 10:00 Dose: 1 tab Nifedipine (Procardia) 10 mg PO DAILY [facility] Last Admin: 06/03/17 10:01 Dose: 10 mg Polyethylene Glycol (Miralax) 17 gm PO DAILY [facility] Last Admin: 06/03/17 09:58 Dose: 17 gm Potassium Chloride (Klor-Con 10) 10 meq PO DAILY [facility] Last Admin: 06/03/17 10:00 Dose: 10 meq Rosuvastatin Calcium (Crestor) 10 mg PO HS [facility] Last Admin: 06/02/17 22:13 Dose: 10 mg Sennosides (Senokot Tab) 17.2 mg PO BID [facility] Last Admin: 06/03/17 09:58 Dose: 17.2 mg Sodium Phosphate (Fleet Enema) 135 ml LA ONCE ONE Stop: 06/03/17 12:30 - Labs Labs: 06/02/17 06:34 06/02/17 06:34 Assessment and Plan (1) Pneumonia Status: Acute (2) COPD exacerbation Status: Acute (3) Dyspnea Status: Acute (4) HTN (hypertension) Status: Chronic
--- NOTE | 2017-06-03 14:59 | MRI ---
PROCEDURE: MRI BRAIN WITHOUT CONTRAST HISTORY: B/L LOWER EXTREMITY WEAKNESS COMPARISON: None. TECHNIQUE: Multiplanar, multisequence MR images of the brain were obtained without intravenous contrast enhancement. FINDINGS: HEMORRHAGE: None DWI: No evidence of an acute or early subacute infarction. BRAIN PARENCHYMA: There is a 17 mm left parietal meningioma with no associated mass effect or edema. No atrophy or chronic microvascular ischemic changes. VENTRICLES: Unremarkable. No hydrocephalus. CRANIUM: Unremarkable. ORBITS: Grossly unremarkable. PARANASAL SINUSES/MASTOIDS: There is a fluid level in the left maxillary sinus and partial opacification of the ethmoid and sphenoid sinus. Fluid in the left mastoid air cells. VASCULAR SYSTEM: Skull base flow voids intact. OTHER FINDINGS: The report concurs with the preliminary [facility] report IMPRESSION: Incidental meningioma left parietal region. No acute intracranial findings. Sinusitis and left-sided mastoiditis
--- NOTE | 2017-06-03 15:01 | MRI ---
PROCEDURE: MR THORACIC SPINE WITHOUT CONTRAST HISTORY: B/L LOWER EXTREMITY WEAKNESS COMPARISON: None available. TECHNIQUE: Multiecho multiplanar sequences were performed through the thoracic spine without the use of intravenous contrast. FINDINGS: ALIGNMENT: Normal thoracic spinal alignment. Normal thoracic kyphosis. VERTEBRA: Vertebral body height are preserved. MARROW: Marrow signal unremarkable. PARASPINAL SOFT TISSUES: Unremarkable. CORD: Unremarkable thoracic cord. No volume loss, signal abnormality or syrinx. DISCS: No disc herniation, spinal canal stenosis, or neuroforaminal narrowing. OTHER FINDINGS: The report concurs with the preliminary [facility] report IMPRESSION: Unremarkable non-contrast enhanced MRI of the thoracic spine
--- NOTE | 2017-06-03 15:10 | MRI ---
PROCEDURE: MR LUMBAR SPINE WITHOUT CONTRAST HISTORY: b/l LE weakness COMPARISON: None available. TECHNIQUE: Multiecho multiplanar sequences were performed through the lumbar spine without the use of intravenous contrast. FINDINGS: Normal lumbar lordosis. Vertebral body heights are preserved. Marrow signal unremarkable. Conus medullaris unremarkable at the level of L1 Paraspinal soft tissues are unremarkable. T12-L1: No disc herniation, spinal canal stenosis or neural foraminal narrowing. L1-2: No disc herniation, spinal canal stenosis or neural foraminal narrowing. L2-3: No disc herniation, spinal canal stenosis or neural foraminal narrowing. L3-4: No disc herniation, spinal canal stenosis or neural foraminal narrowing. L4-5: There is severe facet arthropathy right greater than left. This produces mild foraminal stenosis but no central stenosis L5-S1: Severe facet arthropathy left greater than right without stenosis OTHER FINDINGS: The report concurs with the preliminary [facility] report IMPRESSION: Severe facet arthropathy at L4-5 and L5-S1. No central stenosis
[2017-06-03] MEDS: Vancomycin 1 gm/NS 200 ml 1 GM/200 ML BAG IVPB SCH (19:47)
[2017-06-04] MEDS: guaiFENesin 100 mg/5 ml Syrup UD PO SCH ×6 (00:30→20:51)
[2017-06-04] MEDS: Albuterol-Ipratrop 3 mg / 0.5 (3 ml) UD IH SCH ×3 (01:45→13:15)
[2017-06-04] MEDS: Aztreonam 1 GM in Sodium Chloride 0.9% 100 ML IVPB SCH ×3 (05:48→21:41)
[2017-06-04] MEDS: MethylPREDNISolone 40 mg Vial IVP SCH ×3 (05:48→21:42)
[2017-06-04] MEDS: Budesonide 0.5 mg/2 ml Inhal Susp UD IH PRN (07:40)
[2017-06-04] MEDS: (Novolin R) Insulin Human Regular 100 units/ml vial SC SCH ×4 (08:30→21:31)
[2017-06-04] MEDS: Potassium Chloride 10 mEq ER Tab PO SCH (09:38)
[2017-06-04] MEDS: Multiple Vitamins Tab PO SCH (09:38)
[2017-06-04] MEDS: POLYETHYLENE GLYCOL 3350 17 GM/Dose PACKET PO SCH (09:39)
[2017-06-04] MEDS: Enoxaparin 40 mg Syringe SC SCH (09:39)
--- NOTE | 2017-06-04 11:34 | CP.PCM.PCO ---
Physician Communication Note - Physician Communication Note Physician Communication Note: REVEIWED ALL IMAGING. PATIENT WILL REQUIRE PT/ [place].
--- NOTE | 2017-06-04 12:00 | CP.PCM.PN ---
Subjective - Date & Time of Evaluation Date of Evaluation: 06/04/17 Time of Evaluation: 08:00 - Subjective Subjective: events noted nad IV rx renewed pt will need [place] Objective - Vital Signs/Intake and Output Vital Signs (last 24 hours): Temp Pulse Resp BP Pulse Ox 98.3 F 90 18 143/85 100 06/04/17 08:25 06/04/17 08:25 06/04/17 08:25 06/04/17 09:38 06/04/17 08:25 Intake and Output: 06/04/17 06/04/17 06:59 18:59 Intake Total 320 Balance 320 - Medications Medications: Current Medications Acetaminophen (Tylenol 325mg Tab) 650 mg PO Q6 PRN PRN Reason: Temperature Last Admin: 06/03/17 10:03 Dose: 650 mg Acetaminophen (Tylenol 325mg Tab) 325 mg PO Q4 PRN PRN Reason: Pain, moderate (4-7) Last Admin: 06/04/17 00:31 Dose: 325 mg Al Hydrox/Mg Hydrox/Simethicone (Maalox Plus 30 Ml) 30 ml PO Q6 PRN PRN Reason: Constipation Albuterol/Ipratropium (Duoneb 3 Mg/0.5 Mg (3 Ml) Ud) 3 ml IH RQ6 [facility] Last Admin: 06/04/17 07:40 Dose: 3 ml Benzonatate (Tessalon Perles) 100 mg PO DAILY [facility] Last Admin: 06/04/17 09:38 Dose: 100 mg Budesonide (Pulmicort Respules) 0.5 mg IH RQ12 PRN PRN Reason: Shortness of Breath Last Admin: 06/04/17 07:40 Dose: 0.5 mg Docusate Sodium (Colace) 100 mg PO DAILY [facility] Last Admin: 06/04/17 09:38 Dose: 100 mg Enoxaparin Sodium (Lovenox) 40 mg SC DAILY [facility] Last Admin: 06/04/17 09:39 Dose: 40 mg Famotidine (Pepcid) 20 mg PO DAILY [facility] Last Admin: 06/04/17 09:38 Dose: 20 mg Furosemide (Lasix) 40 mg PO DAILY [facility] Last Admin: 06/04/17 09:38 Dose: 40 mg Guaifenesin (Robitussin) 100 mg PO Q4 [facility] Last Admin: 06/04/17 09:00 Dose: 100 mg Aztreonam 1 gm/ Sodium (Chloride) 100 mls @ 100 mls/hr IVPB Q8 [facility] Last Admin: 06/04/17 05:48 Dose: 100 mls/hr Vancomycin/Sodium Chloride (Vancomycin 1 Gm/Ns 200 Ml) 1 gm in 200 mls @ 133 mls/hr IVPB Q24H [facility] Stop: 06/06/17 20:01 Last Admin: 06/03/17 19:47 Dose: 133 mls/hr Insulin Human Regular (Novolin R) 0 unit SC ACHS IKE PRN Reason: Protocol Last Admin: 06/04/17 08:30 Dose: 2 unit Lactulose (Enulose) 20 gm PO HS PRN PRN Reason: Constipation Last Admin: 06/01/17 21:30 Dose: 20 gm Loratadine (Claritin) 10 mg PO DAILY [facility] Last Admin: 06/04/17 09:38 Dose: 10 mg Methylprednisolone (Solu-Medrol) 40 mg IVP Q8 [facility] Last Admin: 06/04/17 05:48 Dose: 40 mg Montelukast Sodium (Singulair) 10 mg PO DAILY [facility] Last Admin: 06/04/17 09:40 Dose: 10 mg Multivitamins (Hexavitamin) 1 tab PO DAILY [facility] Last Admin: 06/04/17 09:38 Dose: 1 tab Nifedipine (Procardia) 10 mg PO DAILY [facility] Last Admin: 06/04/17 09:38 Dose: 10 mg Polyethylene Glycol (Miralax) 17 gm PO DAILY [facility] Last Admin: 06/04/17 09:39 Dose: Not Given Potassium Chloride (Klor-Con 10) 10 meq PO DAILY [facility] Last Admin: 06/04/17 09:38 Dose: 10 meq Rosuvastatin Calcium (Crestor) 10 mg PO HS [facility] Last Admin: 06/03/17 22:19 Dose: 10 mg Sennosides (Senokot Tab) 17.2 mg PO BID [facility] Last Admin: 06/04/17 09:38 Dose: 17.2 mg - Labs Labs: 06/02/17 06:34 06/02/17 06:34 - Constitutional Appears: Non-toxic, Cachectic, Chronically Ill - Head Exam Head Exam: NORMOCEPHALIC - Eye Exam Eye Exam: PERRL - ENT Exam ENT Exam: Mucous Membranes Dry - Neck Exam Neck Exam: absent: Lymphadenopathy - Respiratory Exam Respiratory Exam: Decreased Breath Sounds - Cardiovascular Exam Cardiovascular Exam: REGULAR RHYTHM - GI/Abdominal Exam GI & Abdominal Exam: Distended, Soft Assessment and Plan (1) Pneumonia Status: Acute (2) Asthma exacerbation Status: Acute (3) COPD exacerbation Status: Acute
--- NOTE | 2017-06-04 13:48 | CP.PCM.PN ---
Subjective - Date & Time of Evaluation Date of Evaluation: 06/04/17 Time of Evaluation: 13:48 Objective - Vital Signs/Intake and Output Vital Signs (last 24 hours): Temp Pulse Resp BP Pulse Ox 98.3 F 110 H 18 143/85 100 06/04/17 08:25 06/04/17 11:46 06/04/17 08:25 06/04/17 09:38 06/04/17 08:25 Intake and Output: 06/04/17 06/04/17 06:59 18:59 Intake Total 320 Balance 320 - Medications Medications: Current Medications Acetaminophen (Tylenol 325mg Tab) 650 mg PO Q6 PRN PRN Reason: Temperature Last Admin: 06/03/17 10:03 Dose: 650 mg Acetaminophen (Tylenol 325mg Tab) 325 mg PO Q4 PRN PRN Reason: Pain, moderate (4-7) Last Admin: 06/04/17 00:31 Dose: 325 mg Al Hydrox/Mg Hydrox/Simethicone (Maalox Plus 30 Ml) 30 ml PO Q6 PRN PRN Reason: Constipation Albuterol/Ipratropium (Duoneb 3 Mg/0.5 Mg (3 Ml) Ud) 3 ml IH RQ6 [facility] Last Admin: 06/04/17 13:15 Dose: 3 ml Benzonatate (Tessalon Perles) 100 mg PO DAILY [facility] Last Admin: 06/04/17 09:38 Dose: 100 mg Budesonide (Pulmicort Respules) 0.5 mg IH RQ12 PRN PRN Reason: Shortness of Breath Last Admin: 06/04/17 07:40 Dose: 0.5 mg Docusate Sodium (Colace) 100 mg PO DAILY [facility] Last Admin: 06/04/17 09:38 Dose: 100 mg Enoxaparin Sodium (Lovenox) 40 mg SC DAILY [facility] Last Admin: 06/04/17 09:39 Dose: 40 mg Famotidine (Pepcid) 20 mg PO DAILY [facility] Last Admin: 06/04/17 09:38 Dose: 20 mg Furosemide (Lasix) 40 mg PO DAILY [facility] Last Admin: 06/04/17 09:38 Dose: 40 mg Guaifenesin (Robitussin) 100 mg PO Q4 [facility] Last Admin: 06/04/17 12:28 Dose: 100 mg Aztreonam 1 gm/ Sodium (Chloride) 100 mls @ 100 mls/hr IVPB Q8 [facility] Last Admin: 06/04/17 13:23 Dose: 100 mls/hr Vancomycin/Sodium Chloride (Vancomycin 1 Gm/Ns 200 Ml) 1 gm in 200 mls @ 133 mls/hr IVPB Q24H [facility] Stop: 06/06/17 20:01 Last Admin: 06/03/17 19:47 Dose: 133 mls/hr Insulin Human Regular (Novolin R) 0 unit SC ACHS IKE PRN Reason: Protocol Last Admin: 06/04/17 12:28 Dose: 4 unit Lactulose (Enulose) 20 gm PO HS PRN PRN Reason: Constipation Last Admin: 06/01/17 21:30 Dose: 20 gm Loratadine (Claritin) 10 mg PO DAILY [facility] Last Admin: 06/04/17 09:38 Dose: 10 mg Methylprednisolone (Solu-Medrol) 40 mg IVP Q8 [facility] Last Admin: 06/04/17 13:23 Dose: 40 mg Montelukast Sodium (Singulair) 10 mg PO DAILY [facility] Last Admin: 06/04/17 09:40 Dose: 10 mg Multivitamins (Hexavitamin) 1 tab PO DAILY [facility] Last Admin: 06/04/17 09:38 Dose: 1 tab Nifedipine (Procardia) 10 mg PO DAILY [facility] Last Admin: 06/04/17 09:38 Dose: 10 mg Polyethylene Glycol (Miralax) 17 gm PO DAILY [facility] Last Admin: 06/04/17 09:39 Dose: Not Given Potassium Chloride (Klor-Con 10) 10 meq PO DAILY [facility] Last Admin: 06/04/17 09:38 Dose: 10 meq Rosuvastatin Calcium (Crestor) 10 mg PO HS [facility] Last Admin: 06/03/17 22:19 Dose: 10 mg Sennosides (Senokot Tab) 17.2 mg PO BID [facility] Last Admin: 06/04/17 09:38 Dose: 17.2 mg - Labs Labs: 06/02/17 06:34 06/02/17 06:34 Assessment and Plan (1) Pneumonia Status: Acute (2) COPD exacerbation Status: Acute (3) Dyspnea Status: Acute (4) HTN (hypertension) Status: Chronic
--- NOTE | 2017-06-04 14:09 | RAD ---
HISTORY: pneumonia COMPARISON: 05/30/2017 FINDINGS: LUNGS: No active pulmonary disease. PLEURA: Probable small left pleural effusion. Right costophrenic angle clear. No pneumothorax. CARDIOVASCULAR: Normal. OSSEOUS STRUCTURES: No significant abnormalities. VISUALIZED UPPER ABDOMEN: Normal. OTHER FINDINGS: None. IMPRESSION: No acute infiltrate. Probable small left pleural effusion. Otherwise unremarkable.
[2017-06-04] MEDS: Vancomycin 1 gm/NS 200 ml 1 GM/200 ML BAG IVPB SCH (19:15)
[2017-06-05] MEDS: guaiFENesin 100 mg/5 ml Syrup UD PO SCH ×6 (00:17→19:45)
[2017-06-05] MEDS: MethylPREDNISolone 40 mg Vial IVP SCH ×3 (05:28→21:03)
[2017-06-05] MEDS: Aztreonam 1 GM in Sodium Chloride 0.9% 100 ML IVPB SCH ×3 (05:30→21:04)
[2017-06-05 06:52] LABS: ALB/GLOB RATIO 1.1 (1.0-2.1); ALBUMIN 2.8 g/dL (3.5-5.0); ALT/SGPT 80 U/L (9-52); AST/SGOT 31 U/L (14-36); BLOOD UREA NITROGEN 23 mg/dL (7-17); CALCIUM 7.9 mg/dl (8.6-10.4); GFR AFRICAN-AMERICAN > 60; GFR NON-AFRICAN AMERICAN > 60
[2017-06-05 07:27] LABS: BASO % 0.3 % (0.0-2.0); HEMOGLOBIN 9.7 g/dL (11.0-16.0); LYMPH # 0.6 K/uL (1.0-4.3); LYMPH % 5.8 % (20.0-40.0); MEAN CELL VOLUME 94.3 fL (81.0-99.0); MEAN CORPUSCULAR HEMOGLOBIN 32.6 pg (27.0-31.0); MEAN CORPUSCULAR HGB CONC 34.6 g/dL (33.0-37.0); MEAN PLATELET VOLUME 8.1 fL (7.2-11.7); MONO # 0.4 K/uL (0.0-0.8); NEUT # 9.7 K/uL (1.8-7.0); NEUT % 89.9 % (50.0-75.0); NRBC % 0.3 % (0.0-2.0); PLATELET COUNT 224 K/uL (130-400); RBC 2.99 Mil/uL (3.80-5.20); RED CELL DISTRIBUTION WIDTH 13.8 % (11.5-14.5); WHITE BLOOD COUNT 10.7 K/uL (4.8-10.8)
[2017-06-05] MEDS: Budesonide 0.5 mg/2 ml Inhal Susp UD IH PRN (08:04)
[2017-06-05] MEDS ORDERED: Potassium Chloride 20 mEq ER Tab PO STA (08:20)
[2017-06-05] MEDS: (Novolin R) Insulin Human Regular 100 units/ml vial SC SCH ×4 (08:30→21:04)
[2017-06-05] MEDS: Enoxaparin 40 mg Syringe SC SCH (09:04)
[2017-06-05] MEDS: Potassium Chloride 10 mEq ER Tab PO SCH (09:05)
[2017-06-05] MEDS: Multiple Vitamins Tab PO SCH (09:05)
[2017-06-05] MEDS: POLYETHYLENE GLYCOL 3350 17 GM/Dose PACKET PO SCH (09:07)
[2017-06-05 10:15] LABS: BANDS 7 % (0-2); LYMPHOCYTE 3 % (20-40); METAMYELOCYTE 1 % (0-0); MONOCYTE 3 % (0-10); NEUTROPHIL 86 % (50-75); TOTAL CELLS COUNTED 100
[2017-06-05 10:16] LABS: PLATELET ESTIMATE NORMAL (NORMAL)
--- NOTE | 2017-06-05 10:42 | CP.PCM.PN ---
Subjective - Date & Time of Evaluation Date of Evaluation: 06/05/17 Time of Evaluation: 09:00 - Subjective Subjective: improving repeat CXR shows clearing Objective - Vital Signs/Intake and Output Vital Signs (last 24 hours): Temp Pulse Resp BP Pulse Ox 98.1 F 76 18 143/87 100 06/05/17 08:30 06/05/17 08:30 06/05/17 08:30 06/05/17 09:05 06/05/17 08:30 Intake and Output: 06/05/17 06/05/17 06:59 18:59 Intake Total 1000 Output Total 1000 Balance 0 - Medications Medications: Current Medications Acetaminophen (Tylenol 325mg Tab) 650 mg PO Q6 PRN PRN Reason: Temperature Last Admin: 06/05/17 05:52 Dose: 650 mg Acetaminophen (Tylenol 325mg Tab) 325 mg PO Q4 PRN PRN Reason: Pain, moderate (4-7) Last Admin: 06/04/17 00:31 Dose: 325 mg Al Hydrox/Mg Hydrox/Simethicone (Maalox Plus 30 Ml) 30 ml PO Q6 PRN PRN Reason: Constipation Benzonatate (Tessalon Perles) 100 mg PO DAILY [facility] Last Admin: 06/05/17 09:06 Dose: 100 mg Budesonide (Pulmicort Respules) 0.5 mg IH RQ12 PRN PRN Reason: Shortness of Breath Last Admin: 06/05/17 08:04 Dose: 0.5 mg Docusate Sodium (Colace) 100 mg PO DAILY [facility] Last Admin: 06/05/17 09:05 Dose: 100 mg Enoxaparin Sodium (Lovenox) 40 mg SC DAILY [facility] Last Admin: 06/05/17 09:04 Dose: 40 mg Famotidine (Pepcid) 20 mg PO DAILY [facility] Last Admin: 06/05/17 09:05 Dose: 20 mg Furosemide (Lasix) 40 mg PO DAILY [facility] Last Admin: 06/05/17 09:05 Dose: 40 mg Guaifenesin (Robitussin) 100 mg PO Q4 [facility] Last Admin: 06/05/17 09:06 Dose: 100 mg Aztreonam 1 gm/ Sodium (Chloride) 100 mls @ 100 mls/hr IVPB Q8 [facility] Last Admin: 06/05/17 05:30 Dose: 100 mls/hr Vancomycin/Sodium Chloride (Vancomycin 1 Gm/Ns 200 Ml) 1 gm in 200 mls @ 133 mls/hr IVPB Q24H [facility] Stop: 06/06/17 20:01 Last Admin: 06/04/17 19:15 Dose: 133 mls/hr Insulin Human Regular (Novolin R) 0 unit SC ACHS IKE PRN Reason: Protocol Last Admin: 06/05/17 08:30 Dose: 2 unit Lactulose (Enulose) 20 gm PO HS PRN PRN Reason: Constipation Last Admin: 06/01/17 21:30 Dose: 20 gm Loratadine (Claritin) 10 mg PO DAILY [facility] Last Admin: 06/05/17 09:05 Dose: 10 mg Methylprednisolone (Solu-Medrol) 40 mg IVP Q8 [facility] Last Admin: 06/05/17 05:28 Dose: 40 mg Montelukast Sodium (Singulair) 10 mg PO DAILY [facility] Last Admin: 06/05/17 09:12 Dose: 10 mg Multivitamins (Hexavitamin) 1 tab PO DAILY [facility] Last Admin: 06/05/17 09:05 Dose: 1 tab Nifedipine (Procardia) 10 mg PO DAILY [facility] Last Admin: 06/05/17 09:06 Dose: 10 mg Polyethylene Glycol (Miralax) 17 gm PO DAILY [facility] Last Admin: 06/05/17 09:07 Dose: 17 gm Potassium Chloride (Klor-Con 10) 10 meq PO DAILY [facility] Last Admin: 06/05/17 09:05 Dose: 10 meq Rosuvastatin Calcium (Crestor) 10 mg PO HS [facility] Last Admin: 06/04/17 21:42 Dose: 10 mg Sennosides (Senokot Tab) 17.2 mg PO BID [facility] Last Admin: 06/05/17 09:05 Dose: 17.2 mg - Labs Labs: 06/05/17 06:11 06/05/17 06:11 - Constitutional Appears: Non-toxic, Chronically Ill - Head Exam Head Exam: NORMOCEPHALIC - Eye Exam Eye Exam: PERRL - ENT Exam ENT Exam: Mucous Membranes Dry - Neck Exam Neck Exam: absent: Lymphadenopathy - Respiratory Exam Respiratory Exam: Decreased Breath Sounds - Cardiovascular Exam Cardiovascular Exam: REGULAR RHYTHM - GI/Abdominal Exam GI & Abdominal Exam: Distended, Soft - Rectal Exam Rectal Exam: Deferred - Exam Exam: NORMAL INSPECTION Assessment and Plan (1) Pneumonia Status: Acute (2) Asthma exacerbation Status: Acute (3) COPD exacerbation Status: Acute
--- NOTE | 2017-06-05 13:33 | CP.PCM.PN ---
Subjective - Date & Time of Evaluation Date of Evaluation: 06/05/17 Time of Evaluation: 13:33 Objective - Vital Signs/Intake and Output Vital Signs (last 24 hours): Temp Pulse Resp BP Pulse Ox 98.1 F 114 H 18 143/87 100 06/05/17 08:30 06/05/17 11:11 06/05/17 08:30 06/05/17 09:05 06/05/17 08:30 Intake and Output: 06/05/17 06/05/17 06:59 18:59 Intake Total 1000 Output Total 1000 Balance 0 - Medications Medications: Current Medications Acetaminophen (Tylenol 325mg Tab) 650 mg PO Q6 PRN PRN Reason: Temperature Last Admin: 06/05/17 05:52 Dose: 650 mg Acetaminophen (Tylenol 325mg Tab) 325 mg PO Q4 PRN PRN Reason: Pain, moderate (4-7) Last Admin: 06/04/17 00:31 Dose: 325 mg Al Hydrox/Mg Hydrox/Simethicone (Maalox Plus 30 Ml) 30 ml PO Q6 PRN PRN Reason: Constipation Benzonatate (Tessalon Perles) 100 mg PO DAILY [facility] Last Admin: 06/05/17 09:06 Dose: 100 mg Budesonide (Pulmicort Respules) 0.5 mg IH RQ12 PRN PRN Reason: Shortness of Breath Last Admin: 06/05/17 08:04 Dose: 0.5 mg Docusate Sodium (Colace) 100 mg PO DAILY [facility] Last Admin: 06/05/17 09:05 Dose: 100 mg Enoxaparin Sodium (Lovenox) 40 mg SC DAILY [facility] Last Admin: 06/05/17 09:04 Dose: 40 mg Famotidine (Pepcid) 20 mg PO DAILY [facility] Last Admin: 06/05/17 09:05 Dose: 20 mg Furosemide (Lasix) 40 mg PO DAILY [facility] Last Admin: 06/05/17 09:05 Dose: 40 mg Guaifenesin (Robitussin) 100 mg PO Q4 [facility] Last Admin: 06/05/17 12:45 Dose: 100 mg Aztreonam 1 gm/ Sodium (Chloride) 100 mls @ 100 mls/hr IVPB Q8 [facility] Last Admin: 06/05/17 13:09 Dose: 100 mls/hr Vancomycin/Sodium Chloride (Vancomycin 1 Gm/Ns 200 Ml) 1 gm in 200 mls @ 133 mls/hr IVPB Q24H [facility] Stop: 06/06/17 20:01 Last Admin: 06/04/17 19:15 Dose: 133 mls/hr Insulin Human Regular (Novolin R) 0 unit SC ACHS IKE PRN Reason: Protocol Last Admin: 06/05/17 12:44 Dose: 3 unit Lactulose (Enulose) 20 gm PO HS PRN PRN Reason: Constipation Last Admin: 06/01/17 21:30 Dose: 20 gm Loratadine (Claritin) 10 mg PO DAILY [facility] Last Admin: 06/05/17 09:05 Dose: 10 mg Methylprednisolone (Solu-Medrol) 40 mg IVP Q8 [facility] Last Admin: 06/05/17 13:09 Dose: 40 mg Montelukast Sodium (Singulair) 10 mg PO DAILY [facility] Last Admin: 06/05/17 09:12 Dose: 10 mg Multivitamins (Hexavitamin) 1 tab PO DAILY [facility] Last Admin: 06/05/17 09:05 Dose: 1 tab Nifedipine (Procardia) 10 mg PO DAILY [facility] Last Admin: 06/05/17 09:06 Dose: 10 mg Polyethylene Glycol (Miralax) 17 gm PO DAILY [facility] Last Admin: 06/05/17 09:07 Dose: 17 gm Potassium Chloride (Klor-Con 10) 10 meq PO DAILY [facility] Last Admin: 06/05/17 09:05 Dose: 10 meq Rosuvastatin Calcium (Crestor) 10 mg PO HS [facility] Last Admin: 06/04/17 21:42 Dose: 10 mg Sennosides (Senokot Tab) 17.2 mg PO BID [facility] Last Admin: 06/05/17 09:05 Dose: 17.2 mg - Labs Labs: 06/05/17 06:11 06/05/17 06:11 Assessment and Plan (1) Pneumonia Status: Acute (2) COPD exacerbation Status: Acute (3) Dyspnea Status: Acute (4) HTN (hypertension) Status: Chronic
[2017-06-05 15:29] VITALS: RESP 20
[2017-06-05] MEDS: Vancomycin 1 gm/NS 200 ml 1 GM/200 ML BAG IVPB SCH (19:46)
[2017-06-06] MEDS: guaiFENesin 100 mg/5 ml Syrup UD PO SCH ×4 (00:54→13:26)
[2017-06-06] MEDS: Aztreonam 1 GM in Sodium Chloride 0.9% 100 ML IVPB SCH ×2 (05:25→13:26)
[2017-06-06] MEDS: Budesonide 0.5 mg/2 ml Inhal Susp UD IH PRN (06:00)
[2017-06-06] MEDS: (Novolin R) Insulin Human Regular 100 units/ml vial SC SCH ×2 (07:00→12:17)
[2017-06-06 08:23] VITALS: PULSE 94; TEMP 97.7; O2SAT 98
[2017-06-06] MEDS: Enoxaparin 40 mg Syringe SC SCH (10:03)
[2017-06-06] MEDS: Potassium Chloride 10 mEq ER Tab PO SCH (10:05)
[2017-06-06] MEDS: POLYETHYLENE GLYCOL 3350 17 GM/Dose PACKET PO SCH (10:06)
[2017-06-06] MEDS: Multiple Vitamins Tab PO SCH (10:06)
[2017-06-06 10:15] VITALS: BP 137/84
--- NOTE | 2017-06-06 12:20 | CP.PCM.PN ---
Subjective - Date & Time of Evaluation Date of Evaluation: 06/06/17 Time of Evaluation: 12:20 Objective - Vital Signs/Intake and Output Vital Signs (last 24 hours): Temp Pulse Resp BP Pulse Ox 97.7 F 94 H 20 137/84 98 06/06/17 08:15 06/06/17 08:15 06/06/17 08:15 06/06/17 10:04 06/06/17 08:15 Intake and Output: 06/06/17 06/06/17 06:59 18:59 Intake Total 500 Output Total 1300 Balance -800 - Medications Medications: Current Medications Acetaminophen (Tylenol 325mg Tab) 650 mg PO Q6 PRN PRN Reason: Temperature Last Admin: 06/05/17 19:44 Dose: 650 mg Acetaminophen (Tylenol 325mg Tab) 325 mg PO Q4 PRN PRN Reason: Pain, moderate (4-7) Last Admin: 06/06/17 10:05 Dose: 325 mg Al Hydrox/Mg Hydrox/Simethicone (Maalox Plus 30 Ml) 30 ml PO Q6 PRN PRN Reason: Constipation Benzonatate (Tessalon Perles) 100 mg PO DAILY [facility] Last Admin: 06/06/17 10:04 Dose: 100 mg Budesonide (Pulmicort Respules) 0.5 mg IH RQ12 PRN PRN Reason: Shortness of Breath Last Admin: 06/06/17 06:00 Dose: 0.5 mg Docusate Sodium (Colace) 100 mg PO DAILY [facility] Last Admin: 06/06/17 10:13 Dose: 100 mg Enoxaparin Sodium (Lovenox) 40 mg SC DAILY [facility] Last Admin: 06/06/17 10:03 Dose: 40 mg Famotidine (Pepcid) 20 mg PO DAILY [facility] Last Admin: 06/06/17 10:06 Dose: 20 mg Furosemide (Lasix) 40 mg PO DAILY [facility] Last Admin: 06/06/17 10:04 Dose: 40 mg Guaifenesin (Robitussin) 100 mg PO Q4 [facility] Last Admin: 06/06/17 09:00 Dose: 100 mg Aztreonam 1 gm/ Sodium (Chloride) 100 mls @ 100 mls/hr IVPB Q8 [facility] Last Admin: 06/06/17 05:25 Dose: 100 mls/hr Vancomycin/Sodium Chloride (Vancomycin 1 Gm/Ns 200 Ml) 1 gm in 200 mls @ 133 mls/hr IVPB Q24H [facility] Stop: 06/06/17 20:01 Last Admin: 06/05/17 19:46 Dose: 133 mls/hr Insulin Human Regular (Novolin R) 0 unit SC ACHS IKE PRN Reason: Protocol Last Admin: 06/06/17 12:17 Dose: Not Given Lactulose (Enulose) 20 gm PO HS PRN PRN Reason: Constipation Last Admin: 06/01/17 21:30 Dose: 20 gm Loratadine (Claritin) 10 mg PO DAILY [facility] Last Admin: 06/06/17 10:05 Dose: 10 mg Methylprednisolone (Solu-Medrol) 40 mg IVP Q8 [facility] Last Admin: 06/05/17 21:03 Dose: 40 mg Montelukast Sodium (Singulair) 10 mg PO DAILY [facility] Last Admin: 06/06/17 10:04 Dose: 10 mg Multivitamins (Hexavitamin) 1 tab PO DAILY [facility] Last Admin: 06/06/17 10:06 Dose: 1 tab Nifedipine (Procardia) 10 mg PO DAILY [facility] Last Admin: 06/06/17 10:06 Dose: 10 mg Polyethylene Glycol (Miralax) 17 gm PO DAILY [facility] Last Admin: 06/06/17 10:06 Dose: Not Given Potassium Chloride (Klor-Con 10) 10 meq PO DAILY [facility] Last Admin: 06/06/17 10:05 Dose: 10 meq Rosuvastatin Calcium (Crestor) 10 mg PO HS [facility] Last Admin: 06/05/17 21:04 Dose: 10 mg Sennosides (Senokot Tab) 17.2 mg PO BID [facility] Last Admin: 06/06/17 10:04 Dose: 17.2 mg - Labs Labs: 06/05/17 06:11 06/05/17 06:11 Assessment and Plan (1) Pneumonia Status: Acute (2) COPD exacerbation Status: Acute (3) Dyspnea Status: Acute (4) HTN (hypertension) Status: Chronic
--- NOTE | 2017-06-06 13:16 | CP.PCM.PN ---
Subjective - Date & Time of Evaluation Date of Evaluation: 06/06/17 Time of Evaluation: 11:30 - Subjective Subjective: Patient seen today, denies any sob, cough, congestion, abdominal pain , numbness , tinglings LE, N/V/D , c/o less energy and weakness a febrile No overnight events reported by RN Objective - Vital Signs/Intake and Output Vital Signs (last 24 hours): Temp Pulse Resp BP Pulse Ox 97.7 F 94 H 20 137/84 98 06/06/17 08:15 06/06/17 08:15 06/06/17 08:15 06/06/17 10:04 06/06/17 08:15 Intake and Output: 06/06/17 06/06/17 06:59 18:59 Intake Total 500 Output Total 1300 Balance -800 - Medications Medications: Current Medications Acetaminophen (Tylenol 325mg Tab) 650 mg PO Q6 PRN PRN Reason: Temperature Last Admin: 06/05/17 19:44 Dose: 650 mg Acetaminophen (Tylenol 325mg Tab) 325 mg PO Q4 PRN PRN Reason: Pain, moderate (4-7) Last Admin: 06/06/17 10:05 Dose: 325 mg Al Hydrox/Mg Hydrox/Simethicone (Maalox Plus 30 Ml) 30 ml PO Q6 PRN PRN Reason: Constipation Benzonatate (Tessalon Perles) 100 mg PO DAILY [facility] Last Admin: 06/06/17 10:04 Dose: 100 mg Budesonide (Pulmicort Respules) 0.5 mg IH RQ12 PRN PRN Reason: Shortness of Breath Last Admin: 06/06/17 06:00 Dose: 0.5 mg Docusate Sodium (Colace) 100 mg PO DAILY [facility] Last Admin: 06/06/17 10:13 Dose: 100 mg Enoxaparin Sodium (Lovenox) 40 mg SC DAILY [facility] Last Admin: 06/06/17 10:03 Dose: 40 mg Famotidine (Pepcid) 20 mg PO DAILY [facility] Last Admin: 06/06/17 10:06 Dose: 20 mg Furosemide (Lasix) 40 mg PO DAILY [facility] Last Admin: 06/06/17 10:04 Dose: 40 mg Guaifenesin (Robitussin) 100 mg PO Q4 [facility] Last Admin: 06/06/17 09:00 Dose: 100 mg Aztreonam 1 gm/ Sodium (Chloride) 100 mls @ 100 mls/hr IVPB Q8 [facility] Last Admin: 06/06/17 05:25 Dose: 100 mls/hr Vancomycin/Sodium Chloride (Vancomycin 1 Gm/Ns 200 Ml) 1 gm in 200 mls @ 133 mls/hr IVPB Q24H [facility] Stop: 06/06/17 20:01 Last Admin: 06/05/17 19:46 Dose: 133 mls/hr Insulin Human Regular (Novolin R) 0 unit SC ACHS IKE PRN Reason: Protocol Last Admin: 06/06/17 12:17 Dose: Not Given Lactulose (Enulose) 20 gm PO HS PRN PRN Reason: Constipation Last Admin: 06/01/17 21:30 Dose: 20 gm Loratadine (Claritin) 10 mg PO DAILY [facility] Last Admin: 06/06/17 10:05 Dose: 10 mg Methylprednisolone (Solu-Medrol) 40 mg IVP Q8 [facility] Last Admin: 06/05/17 21:03 Dose: 40 mg Montelukast Sodium (Singulair) 10 mg PO DAILY [facility] Last Admin: 06/06/17 10:04 Dose: 10 mg Multivitamins (Hexavitamin) 1 tab PO DAILY [facility] Last Admin: 06/06/17 10:06 Dose: 1 tab Nifedipine (Procardia) 10 mg PO DAILY [facility] Last Admin: 06/06/17 10:06 Dose: 10 mg Polyethylene Glycol (Miralax) 17 gm PO DAILY [facility] Last Admin: 06/06/17 10:06 Dose: Not Given Potassium Chloride (Klor-Con 10) 10 meq PO DAILY [facility] Last Admin: 06/06/17 10:05 Dose: 10 meq Rosuvastatin Calcium (Crestor) 10 mg PO HS [facility] Last Admin: 06/05/17 21:04 Dose: 10 mg Sennosides (Senokot Tab) 17.2 mg PO BID [facility] Last Admin: 06/06/17 10:04 Dose: 17.2 mg - Labs Labs: 06/05/17 06:11 06/05/17 06:11 - Constitutional Appears: Well, No Acute Distress - Respiratory Exam Respiratory Exam: Clear to Ausculation Bilateral, NORMAL BREATHING PATTERN - Cardiovascular Exam Cardiovascular Exam: REGULAR RHYTHM, +S1, +S2 - Neurological Exam Neurological Exam: Alert, Awake, Oriented x3 Assessment and Plan - Assessment and Plan (Free Text) Assessment: a/p 81 yr old pmhx of Arthritis (R TKR; BACK PAIN), Asthma, Bronchitis, HTN, Hypercholesterolemia, admitted with pneumonia pateint clinically improved with IV antibiotics and repeat chest x-ray negative lumbar MRI -Severe facet arthropathy at L4-5 and L5-S1. No central stenosis Dr. Vargas consulted for generalized weakness , recommended [place] with aggressive physical therapy son would like [facility] for rehab and patient accepted at [facility] D/w Dr. Sanon , stable for discharge to [facility] today discharge plan discussed with patient and son at bed side , who understand s and agrees with plan
[2017-06-06] MEDS: MethylPREDNISolone 40 mg Vial IVP SCH (13:55)
--- NOTE | 2017-06-06 14:35 | CP.PCM.PN ---
Subjective - Date & Time of Evaluation Date of Evaluation: 06/06/17 Time of Evaluation: 10:00 - Subjective Subjective: no fever chest pain or SOB alert NAD Objective - Vital Signs/Intake and Output Vital Signs (last 24 hours): Temp Pulse Resp BP Pulse Ox 97.7 F 94 H 20 137/84 98 06/06/17 08:15 06/06/17 08:15 06/06/17 08:15 06/06/17 10:04 06/06/17 08:15 Intake and Output: 06/06/17 06/06/17 06:59 18:59 Intake Total 500 500 Output Total 1300 700 Balance -800 -200 - Medications Medications: Current Medications Acetaminophen (Tylenol 325mg Tab) 650 mg PO Q6 PRN PRN Reason: Temperature Last Admin: 06/05/17 19:44 Dose: 650 mg Acetaminophen (Tylenol 325mg Tab) 325 mg PO Q4 PRN PRN Reason: Pain, moderate (4-7) Last Admin: 06/06/17 10:05 Dose: 325 mg Al Hydrox/Mg Hydrox/Simethicone (Maalox Plus 30 Ml) 30 ml PO Q6 PRN PRN Reason: Constipation Benzonatate (Tessalon Perles) 100 mg PO DAILY [facility] Last Admin: 06/06/17 10:04 Dose: 100 mg Budesonide (Pulmicort Respules) 0.5 mg IH RQ12 PRN PRN Reason: Shortness of Breath Last Admin: 06/06/17 06:00 Dose: 0.5 mg Docusate Sodium (Colace) 100 mg PO DAILY [facility] Last Admin: 06/06/17 10:13 Dose: 100 mg Enoxaparin Sodium (Lovenox) 40 mg SC DAILY [facility] Last Admin: 06/06/17 10:03 Dose: 40 mg Famotidine (Pepcid) 20 mg PO DAILY [facility] Last Admin: 06/06/17 10:06 Dose: 20 mg Furosemide (Lasix) 40 mg PO DAILY [facility] Last Admin: 06/06/17 10:04 Dose: 40 mg Guaifenesin (Robitussin) 100 mg PO Q4 [facility] Last Admin: 06/06/17 13:26 Dose: Not Given Aztreonam 1 gm/ Sodium (Chloride) 100 mls @ 100 mls/hr IVPB Q8 [facility] Last Admin: 06/06/17 13:26 Dose: Not Given Vancomycin/Sodium Chloride (Vancomycin 1 Gm/Ns 200 Ml) 1 gm in 200 mls @ 133 mls/hr IVPB Q24H [facility] Stop: 06/06/17 20:01 Last Admin: 06/05/17 19:46 Dose: 133 mls/hr Insulin Human Regular (Novolin R) 0 unit SC ACHS IKE PRN Reason: Protocol Last Admin: 06/06/17 12:17 Dose: Not Given Lactulose (Enulose) 20 gm PO HS PRN PRN Reason: Constipation Last Admin: 06/01/17 21:30 Dose: 20 gm Loratadine (Claritin) 10 mg PO DAILY [facility] Last Admin: 06/06/17 10:05 Dose: 10 mg Methylprednisolone (Solu-Medrol) 40 mg IVP Q8 [facility] Last Admin: 06/06/17 13:55 Dose: Not Given Montelukast Sodium (Singulair) 10 mg PO DAILY [facility] Last Admin: 06/06/17 10:04 Dose: 10 mg Multivitamins (Hexavitamin) 1 tab PO DAILY [facility] Last Admin: 06/06/17 10:06 Dose: 1 tab Nifedipine (Procardia) 10 mg PO DAILY [facility] Last Admin: 06/06/17 10:06 Dose: 10 mg Polyethylene Glycol (Miralax) 17 gm PO DAILY [facility] Last Admin: 06/06/17 10:06 Dose: Not Given Potassium Chloride (Klor-Con 10) 10 meq PO DAILY [facility] Last Admin: 06/06/17 10:05 Dose: 10 meq Rosuvastatin Calcium (Crestor) 10 mg PO HS [facility] Last Admin: 06/05/17 21:04 Dose: 10 mg Sennosides (Senokot Tab) 17.2 mg PO BID [facility] Last Admin: 06/06/17 10:04 Dose: 17.2 mg - Labs Labs: 06/05/17 06:11 06/05/17 06:11 - Constitutional Appears: Non-toxic, Chronically Ill - Head Exam Head Exam: NORMOCEPHALIC - Eye Exam Eye Exam: PERRL - ENT Exam ENT Exam: Mucous Membranes Dry - Neck Exam Neck Exam: absent: Lymphadenopathy - Respiratory Exam Respiratory Exam: Decreased Breath Sounds, Clear to Ausculation Bilateral - Cardiovascular Exam Cardiovascular Exam: REGULAR RHYTHM, +S1, +S2 - GI/Abdominal Exam GI & Abdominal Exam: Distended, Soft - Rectal Exam Rectal Exam: Deferred Assessment and Plan (1) Pneumonia Status: Acute (2) Asthma exacerbation Status: Acute (3) COPD exacerbation Status: Acute
== END 2017-06-06 16:50 | DRG 190 ==
LOC: C.ER 11:24 → C.9E 14:07 → C.6T 16:31
PROVIDERS: ADMIT Internal Medicine Critical Care Medicine; ATTEND Internal Medicine Critical Care Medicine
DX: J44.0 Chronic obstructive pulmonary disease with (acute) lower respiratory infection (principal); J18.9 Pneumonia, unspecified organism; E11.42 Type 2 diabetes mellitus with diabetic polyneuropathy; J45.901 Unspecified asthma with (acute) exacerbation; K21.9 Gastro-esophageal reflux disease without esophagitis; J44.1 Chronic obstructive pulmonary disease with (acute) exacerbation; M19.90 Unspecified osteoarthritis, unspecified site; Z96.651 Presence of right artificial knee joint; I10 Essential (primary) hypertension; E78.00 Pure hypercholesterolemia, unspecified; M43.10 Spondylolisthesis, site unspecified; Z85.01 Personal history of malignant neoplasm of esophagus; Z87.01 Personal history of pneumonia (recurrent); Z90.710 Acquired absence of both cervix and uterus

== ENCOUNTER 2017-07-06 10:32 | Inpatient (IN) | payer MEDICARE, OTHER ==
[2017-07-06 10:44] VITALS: BMI 30.9
[2017-07-06] MEDS ORDERED: Vancomycin 1 GM 1 GM/250 ML BAG IV STA (11:21)
[2017-07-06 11:22] LABS: BASO % 0.2 % (0.0-2.0); EOS % 0.1 % (0.0-4.0); HEMOGLOBIN 10.8 g/dL (11.0-16.0); LYMPH # 1.8 K/uL (1.0-4.3); LYMPH % 11.8 % (20.0-40.0); MEAN CORPUSCULAR HEMOGLOBIN 32.9 pg (27.0-31.0); MEAN CORPUSCULAR HGB CONC 32.9 g/dL (33.0-37.0); MEAN PLATELET VOLUME 7.7 fL (7.2-11.7); MONO # 0.6 K/uL (0.0-0.8); MONO % 3.6 % (0.0-10.0); NEUT # 12.9 K/uL (1.8-7.0); NEUT % 84.3 % (50.0-75.0); NRBC % 0.1 % (0.0-2.0); RBC 3.28 Mil/uL (3.80-5.20); WHITE BLOOD COUNT 15.3 K/uL (4.8-10.8)
[2017-07-06 11:23] LABS: INR 1.2; PROTHROMBIN TIME 13.6 SECONDS (9.7-12.2)
[2017-07-06] MEDS ORDERED: Aztreonam 2 GM in Sodium Chloride 0.9% 100 ML IVPB STA (11:23)
--- NOTE | 2017-07-06 11:23 | RAD ---
HISTORY: SOB COMPARISON: Chest x-ray performed 06/04/17 TECHNIQUE: Chest, one view. FINDINGS: Examination limited by habitus. LUNGS: Small bilateral pleural effusions and/or atelectasis/infiltrates. No definite pneumothorax. CARDIOVASCULAR: Mild cardiomegaly. OSSEOUS STRUCTURES: Degenerative changes. VISUALIZED UPPER ABDOMEN: Unremarkable. OTHER FINDINGS: None. IMPRESSION: Mild cardiomegaly. Small bilateral pleural effusions and/or atelectasis/infiltrates.
--- NOTE | 2017-07-06 11:26 | C.PDOC ---
History Of Present Illness Patient KAREN from [place] for evaluation of worsening SOB over the last 2 days. Patient recently discharged from [facility] for pneumonia, asthma/copd exacerbation, currently on Ertapenem IV via PICC line (midline). History limited due to clinical condition. Time Seen by Provider: 07/06/17 10:52 Chief Complaint (Nursing): Shortness Of Breath History Per: EMS History/Exam Limitations: clinical condition Onset/Duration Of Symptoms: Days (2) Current Symptoms Are (Timing): Still Present Past Medical History Reviewed: Historical Data, Nursing Documentation, Vital Signs Vital Signs: Last Vital Signs Temp 98.1 F 07/14/17 23:55 Pulse 102 H 07/15/17 07:05 Resp 20 07/14/17 23:55 BP 122/52 L 07/14/17 23:55 Pulse Ox 92 L 07/15/17 08:44 - Medical History PMH: Arthritis (R TKR; BACK PAIN), Asthma, Bronchitis, COPD, HTN, Hypercholesterolemia, Pneumonia - [facility] Procedures ASSISTANCE WITH RESPIRATORY VENTILATION, 24-96 HRS, CPAP (04/25/17) INSERTION OF INFUSION DEV INTO SUP VENA CAVA, PERC APPROACH (04/25/17) INSPECTION OF LARYNX, ENDO (04/25/17) Family History: States: No Known Family Hx - Social History Hx Tobacco Use: No Hx Alcohol Use: No Hx Substance Use: No - Immunization History Hx Tetanus Toxoid Vaccination: No Hx Influenza Vaccination: Yes (04/05/2017) Hx Pneumococcal Vaccination: Yes (04/05/2017) Review Of Systems Review Of Systems: ROS cannot be obtained secondary to pt's inabilty to answer questions. Physical Exam - Physical Exam Appears: Well, Non-toxic, In Acute Distress (in moderate to severe respiratory distress) Skin: Warm, Dry, No Rash Nose: Normal Oral Mucosa: Moist Throat: Normal, No Erythema, No Exudate Cardiovascular: Rhythm Regular (tachycardic ) Respiratory: Accessory Muscle Use (moderate to severe ), Rales (B/L), Rhonchi (B /L ), Wheezing (B/L) Gastrointestinal/Abdominal: Normal Exam, Bowel Sounds, Soft, No Tenderness Extremity: Pedal Edema (+1 pitting edema B/L LEs) Neurological/Psych: Oriented x3 ED Course And Treatment - Laboratory Results Result Diagrams: 07/12/17 07:47 07/12/17 07:47 ECG: Interpreted By Me, Viewed By Me (sinus tachycardia 135bpm, normal axis, no acute ST/T wave changes) ECG Interpretation: Abnormal O2 Sat by Pulse Oximetry: 92 (RA) Pulse Ox Interpretation: Normal (COPD history) - Other Rad CXR X-Ray: Viewed By Me, Read By Radiologist Interpretation: Accession No. : [id number]. Patient Name / ID : GENO LANDEROS / [id number]. Exam Date : 07/06/2017 11:09:03 ( Approved ). Study Comment : Sex / Age : F / [id number]. Creator : Lakisha Mcdonald MD. Dictator : Lakisha Mcdonald MD. Production Operations Inspector : Time Cycle Operator : Lakisha Mcdonald MD. Approver2 : Report Date : 07/06/2017 11:21:45. My Comment : . HISTORY: SOB. COMPARISON: Chest x-ray performed 06/04/17. TECHNIQUE: Chest, one view. FINDINGS: Examination limited by habitus. LUNGS: Small bilateral pleural effusions and/or atelectasis/infiltrates. No definite pneumothorax. CARDIOVASCULAR: Mild cardiomegaly. OSSEOUS STRUCTURES: Degenerative changes. VISUALIZED UPPER ABDOMEN: Unremarkable. OTHER FINDINGS: None. IMPRESSION: Mild cardiomegaly. Small bilateral pleural effusions and/or atelectasis/ infiltrates. Progress Note: Patient placed on Bipap emergently for respiratory distress. Blood work, CXR, EKG ordered and reviewed. Patient given IV Vancomycin, IV Azactam (given during prior admission) due to multiple antibiotic allergies. Tylenol [place] given for fever. 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 12:35- Flagyl IV added to cover for possible aspiration pneumonia - patient on Xanax and Percocet at [place]. UA, UDS, influenza swab pending. Patient accepted to ICU by Dr. Demetris Barrno. - Physician Consult Information Physician Contacted: Kalpesh Barron Outcome Of Conversation: Discussed patient with PMD, who is aware of ICU admission Critical Care Time - Critical Care Note Total Time (in mins): 50 Documented critical care: time excludes all time spent performing seperately billable procedures. Medical Decision Making Medical Decision Making: differential diagnoses considered: pneumonia, UTI, ME/ACS, CHF exacerbation, COPD/asthma, PE, intraabdominal infection, CVA/TIA, influenza/viral syndrome Disposition - Disposition Disposition: HOSPITALIZED Disposition Time: 12:25 Condition: GUARDED - Clinical Impression Clinical Impression: Sepsis, Respiratory distress, Dyspnea, Elevated troponin, Fever Decision To Admit - Pt Status Changed To: Hospital Disposition Of: Inpatient - Admit Certification Admit to Inpatient:: After my assessment, the patient will require hospitalization for at least two midnights. This is because of the severity of symptoms shown, intensity of services needed, and/or the medical risk in this patient being treated as an outpatient. - InPatient: Physician Admission Certification: I certify that this patient requires 2 or more midnights of care for the following reason:: see notes - . Bed Request Type: ICU Admitting Physician: Kalpesh Barron Patient Diagnosis: Sepsis, Respiratory distress, Dyspnea, Elevated troponin, Fever
[2017-07-06 11:34] LABS: ALBUMIN 3.3 g/dL (3.5-5.0); ALT/SGPT 26 U/L (9-52); AST/SGOT 20 U/L (14-36); BLOOD UREA NITROGEN 40 mg/dL (7-17); CALCIUM 9.4 mg/dl (8.6-10.4); GFR AFRICAN-AMERICAN 48; GFR NON-AFRICAN AMERICAN 40
[2017-07-06 11:37] LABS: ARTERIAL BLOOD GAS HCO3 19.1 mmol/L (21-28); ARTERIAL BLOOD GAS O2 SAT 98.9 % (95-98); ARTERIAL BLOOD GAS PCO2 26 mm/Hg (35-45); ARTERIAL BLOOD GAS PH 7.39 (7.35-7.45); ARTERIAL BLOOD GAS PO2 271 mm/Hg (80-100); ARTERIAL BLOOD GAS TCO2 16.5 mmol/L (22-28)
[2017-07-06] MEDS ORDERED: Sodium Chloride 0.9% 250 ML IV ONE (11:44)
[2017-07-06 11:50] LABS: B-TYPE NATRIURETIC PEPTIDE 5100 pg/mL (0-900); CK-MB 2.74 ng/mL (0.0-3.38)
[2017-07-06] MEDS ORDERED: Vancomycin 1 gm/NS 200 ml 1 GM/200 ML BAG IVPB ONE (12:00)
[2017-07-06] MEDS ORDERED: metroNIDAZOLE IV 500 mg/100 ml 500 MG/100 ML BAG IV STA (12:40)
[2017-07-06] MEDS ORDERED: metroNIDAZOLE IV 500 mg/100 ml 500 MG/100 ML BAG ONE (13:31)
[2017-07-06 13:39] LABS: SQUAMOUS EPITHIAL 67 /hpf (0-5); URINE BACTERIA RARE (<OCC); URINE BILIRUBIN NEGATIVE (NEGATIVE); URINE BLOOD NEGATIVE (NEGATIVE); URINE CLARITY Hazy (Clear); URINE COLOR Yellow (YELLOW); URINE GLUCOSE (UA) NORMAL (Normal); URINE LEUKOCYTE ESTERASE 3+ Leu/uL (Negative); URINE NITRATE NEGATIVE (NEGATIVE); URINE PROTEIN NEGATIVE (NEGATIVE); URINE UROBILINOGEN NORMAL mg/dL (0.2-1.0); WBC CLUMPS FEW /hpf
[2017-07-06 13:47] LABS: MAGNESIUM 2.3 mg/dL (1.6-2.3)
[2017-07-06 14:07] LABS: BARBITURATES, UR NEGATIVE (NEGATIVE); BENZODIAZEPINES, UR NEGATIVE (NEGATIVE); OPIATES, UR NEGATIVE (NEGATIVE); PHENCYCLIDINE, UR NEGATIVE (NEGATIVE)
--- NOTE | 2017-07-06 14:35 | PCM.SEPTIC ---
Sepsis Progress Note - Reassessment Type Date of Evaluation: 07/06/17 Time of Evaluation: 14:33 Reassessment Type: Non-invasive reassessment - Non Invasive Reassessment Were the most recent vital sign reviewed: Yes Vital Sign (Latest): Temp Pulse Resp BP Pulse Ox 98.4 F 100 H 18 90/42 L 99 07/06/17 13:46 07/06/17 13:46 07/06/17 13:46 07/06/17 13:46 07/06/17 13:46 Cardiovascular: Yes: Regular Rate, Rhythm, Tachycardia Respiratory: Yes: Decreased Breath Sounds, Rhonchi Capillary Refill: Normal (Less than 2 sec) Skin: Normal Color - Invasive Reassessment (complete 2 of 4) Was a Central Venous Pressure Measurement obtained within 6 Hours after the presentation of septic shock: No Was a central venous oxygen measurement obtained within 6 hours after the presentation of septic shock: No Was a bedside cardiovascular ultrasound performed within 6 hours after the presentation of septic shock: No Was a passive leg raise performed or was a fluid challenge performed within 6 hrs of the initial fluid bolus: No Passive Leg Raise Result: Not Applicable Fluid Challenge performed: Yes
[2017-07-06] MEDS ORDERED: Lactated Ringer's 1,000 ML IV SCH (14:45)
[2017-07-06] MEDS ORDERED: Sodium Chloride 0.9% 1,000 ML IV SCH (14:45)
--- NOTE | 2017-07-06 14:48 | CP.PCM.CON ---
Addendum entered and electronically signed by Erick Escudero 07/06/17 15:49: HPI: [facility] over the last 2 days. Patient recently discharged from [facility] for pneumonia, asthma/copd exacerbation, currently on Ertapenem IV via PICC line. Seen in ER on bipap 100% . History limited due to clinical condition. Per son, patient took 1/2 tablet of percocet yesterday. She also [facility]. Last bowel movement was this morning. Per Medical Records: PMH: Asthma, Bronchitis, HTN, HLD, Acid Reflux, Arthritis, Pneumonia, Urinary Incontinence PSH: Esophagectomy, Hysterectomy Medications: Duoneb 3 ml q6, Breo Ellipta 100-25 Mcg daily, Valsartan-Hctz 80- 12.5 mg daily, Crestor 10 mg daily, Nexium 40 mg daily Allergies: Aspirin, Ciprofloxacin, Ciprofloxacin HCl, Nitrofuantoin, Nitrofuantoin Macrocrystalline, Penicillin, Sulfa Family History: Father from metastatic Prostate Cancer, mother from Tuberculosis Social History: Denies tobacco and drug use, drinks champagne and wine socially ; , lives [place] Original Note: <Erick Escudero - Last Filed: 07/06/17 14:51> History of Present Illness - History of Present Illness History of Present Illness: HPI: [facility] worsening SOB over the last 2 days. Patient recently discharged from [facility] for pneumonia, asthma/copd exacerbation, currently on Ertapenem IV via PICC line. Seen in ER on bipap 100% . History limited due to clinical condition. Per son, patient took 1/2 tablet of percocet yesterday. She also takes [facility]ax [facility]mg [facility]. Last bowel movement was this morning. Review of Systems - Review of Systems Systems not reviewed;Unavailable: Respiratory Distress Past Patient History - Infectious Disease Hx of Infectious Diseases: None - Past Medical History & Family History Past Medical History?: Yes - Past Social History Smoking Status: Never Smoked - CARDIAC Hx Hypercholesterolemia: Yes Hx Hypertension: Yes - PULMONARY Hx Asthma: Yes Hx Bronchitis: Yes Hx Chronic Obstructive Pulmonary Disease (COPD): Yes Hx Pneumonia: Yes - NEUROLOGICAL Hx Neurological Disorder: No - HEENT Hx HEENT Problems: No Other/Comment: WEARS GLASSES - RENAL Hx Chronic Kidney Disease: No - ENDOCRINE/METABOLIC Hx Endocrine Disorders: Yes - HEMATOLOGICAL/ONCOLOGICAL Hx Blood Disorders: Yes Hx Cancer: Yes (Esophagus) - INTEGUMENTARY Hx Dermatological Problems: No - MUSCULOSKELETAL/RHEUMATOLOGICAL Hx Arthritis: Yes (R TKR; BACK PAIN) - GASTROINTESTINAL Hx Gastrointestinal Disorders: Yes Hx Gastroesophageal Reflux: Yes Other/Comment: hx of esophageal CA - GENITOURINARY/GYNECOLOGICAL Hx Genitourinary Disorders: Yes - PSYCHIATRIC Hx Substance Use: No - SURGICAL HISTORY Hx Surgeries: Yes Hx Breast Biopsy: Yes Hx Hysterectomy: Yes Hx Orthopedic Surgery: Yes (RTKR) Other/Comment: ESOPHAGEAL SX - ANESTHESIA Hx Anesthesia: Yes Hx Anesthesia Reactions: No Hx Malignant Hyperthermia: No Meds Allergies/Adverse Reactions: Allergies Allergy/AdvReac Type Severity Reaction Status Date / Time aspirin Allergy Severe RASH Verified 05/30/17 11:42 ciprofloxacin [From Cipro] Allergy Severe RASH Verified 05/30/17 11:42 ciprofloxacin HCl Allergy Severe RASH Verified 05/30/17 11:42 [From Cipro] nitrofurantoin Allergy Severe RASH Verified 05/30/17 11:42 [From Macrobid] nitrofurantoin Allergy Severe RASH Verified 05/30/17 11:42 macrocrystalline [From Macrobid] Penicillins Allergy Severe RASH Verified 05/30/17 11:42 Sulfa (Sulfonamide Allergy Severe RASH Verified 05/30/17 11:42 Antibiotics) azithromycin Allergy ITCHING Verified 05/30/17 11:42 - Medications Medications: Current Medications Acetaminophen (Tylenol 325mg Tab) 325 mg PO Q6 IKE Albuterol/Ipratropium (Duoneb 3 Mg/0.5 Mg (3 Ml) Ud) 3 ml IH RQ6 IKE Clopidogrel Bisulfate (Plavix) 75 mg PO DAILY IKE Famotidine (Pepcid) 20 mg PO DAILY [facility] Heparin Sodium (Porcine) (Heparin) 5,000 units SC Q8 IKE Aztreonam 2 gm/ Sodium (Chloride) 100 mls @ 200 mls/hr IVPB Q12H IKE Metronidazole (Flagyl) 500 mg in 100 mls @ 100 mls/hr IVPB Q12H IKE Vancomycin HCl 1 gm/ Sodium (Chloride) 200 mls @ 166.7 mls/hr IVPB Q24H IKE Lactated Ringer's (Lactated Ringer's) 1,000 mls @ 42 mls/hr IV .[id number] IKE Sodium Chloride (Sodium Chloride 0.9%) 1,000 mls @ 100 mls/hr IV .Q10H IKE Insulin Human Regular (Novolin R) 0 unit SC ACHS IKE PRN Reason: Protocol Methylprednisolone (Solu-Medrol) 40 mg IVP Q8 IKE Montelukast Sodium (Singulair) 10 mg PO DAILY IKE Rosuvastatin Calcium (Crestor) 10 mg PO HS IKE Physical Exam - Constitutional Appears: Toxic, In Acute Distress - Head Exam Head Exam: ATRAUMATIC, NORMAL INSPECTION - Eye Exam Eye Exam: EOMI - ENT Exam ENT Exam: Mucous Membranes Moist - Respiratory Exam Respiratory Exam: Accessory Muscle Use, Rales, Rhonchi, Wheezes - Cardiovascular Exam Cardiovascular Exam: Tachycardia, REGULAR RHYTHM. absent: Systolic Murmur - GI/Abdominal Exam GI & Abdominal Exam: Normal Bowel Sounds, Soft. absent: Tenderness - Extremities Exam Extremities exam: Positive for: pedal edema Additional comments: +1 pitting edema B/L LEs - Neurological Exam Neurological exam: Oriented x3 - Skin Skin Exam: Normal Color, Warm Results - Vital Signs Recent Vital Signs: Last Vital Signs Temp 98.2 F 07/06/17 14:36 Pulse 99 H 07/06/17 14:36 Resp 18 07/06/17 14:36 BP 87/67 L 07/06/17 14:36 Pulse Ox 100 07/06/17 14:36 - Labs Result Diagrams: 07/06/17 11:09 07/06/17 11:09 Labs: Laboratory Results - last 24 hr 07/06/17 07/06/17 07/06/17 11:09 11:09 11:09 WBC 15.3 H RBC 3.28 L Hgb 10.8 L Hct 32.8 L MCV 100.0 H D MCH 32.9 H MCHC 32.9 L RDW 17.0 H Plt Count 543 H D MPV 7.7 Neut % (Auto) 84.3 H Lymph % (Auto) 11.8 L [place] % (Auto) 3.6 Eos % (Auto) 0.1 Baso % (Auto) 0.2 Neut # (Auto) 12.9 H Lymph # (Auto) 1.8 [place] # (Auto) 0.6 Eos # (Auto) 0.0 Baso # (Auto) 0.0 PT 13.6 H INR 1.2 APTT 24 Puncture Site pCO2 pO2 HCO3 ABG pH ABG Total CO2 ABG O2 Saturation ABG Base Excess Issa Test ABG Potassium A-a O2 Difference Respiratory Index Glucose Lactate Vent Mode FiO2 Inspiratory BiPAP Expiratory BiPAP Sodium 129 L Potassium 4.1 Chloride 90 L Carbon Dioxide 23 Anion Gap 19 BUN 40 H Creatinine 1.3 H Est GFR ( Amer) 48 Est GFR (Non-Af Amer) 40 Random Glucose 226 H Calcium 9.4 Phosphorus 5.3 H Magnesium 2.3 Total Bilirubin 0.7 AST 20 ALT 26 Alkaline Phosphatase 113 Total Creatine Kinase < 20 L CK-MB (Mass) 2.74 Troponin I 0.1450 H* NT-Pro-B Natriuret Pep 5100 H Total Protein 6.6 Albumin 3.3 L Globulin 3.3 Albumin/Globulin Ratio 1.0 Arterial Blood Potassium Urine Color Urine Clarity Urine pH Ur Specific [place] Urine Protein Urine Glucose (UA) Urine Ketones Urine Blood Urine Nitrate Urine Bilirubin Urine Urobilinogen Ur Leukocyte Esterase Urine WBC (Auto) Urine RBC (Auto) Urine WBC Clumps (Auto) Ur Squamous Epith Cells Urine Bacteria Urine Opiates Screen Urine Methadone Screen Ur Barbiturates Screen Ur Phencyclidine Scrn Ur Amphetamines Screen U Benzodiazepines Scrn U Oth Cocaine Metabols U Cannabinoids Screen Influenza Typ A,B (EIA) 07/06/17 07/06/17 07/06/17 11:34 12:22 13:19 WBC RBC Hgb Hct MCV MCH MCHC RDW Plt Count MPV Neut % (Auto) Lymph % (Auto) [place] % (Auto) Eos % (Auto) Baso % (Auto) Neut # (Auto) Lymph # (Auto) [place] # (Auto) Eos # (Auto) Baso # (Auto) PT INR APTT Puncture Site Rb pCO2 26 L pO2 271 H HCO3 19.1 L ABG pH 7.39 ABG Total CO2 16.5 L ABG O2 Saturation 98.9 H ABG Base Excess -7.6 L Issa Test Na ABG Potassium 3.7 A-a O2 Difference 410.0 Respiratory Index 1.5 Glucose 262 H Lactate 3.4 H Vent Mode Bipap FiO2 100.0 Inspiratory BiPAP 12 Expiratory BiPAP 6 Sodium 131.0 L Potassium Chloride 103.0 Carbon Dioxide Anion Gap BUN Creatinine Est GFR ( Amer) Est GFR (Non-Af Amer) Random Glucose Calcium Phosphorus Magnesium Total Bilirubin AST ALT Alkaline Phosphatase Total Creatine Kinase CK-MB (Mass) Troponin I NT-Pro-B Natriuret Pep Total Protein Albumin Globulin Albumin/Globulin Ratio Arterial Blood Potassium 3.7 Urine Color Yellow Urine Clarity Hazy Urine pH 5.0 Ur Specific [place] 1.012 Urine Protein Negative Urine Glucose (UA) Normal Urine Ketones Negative Urine Blood Negative Urine Nitrate Negative Urine Bilirubin Negative Urine Urobilinogen Normal Ur Leukocyte Esterase 3+ H Urine WBC (Auto) 138 H Urine RBC (Auto) 3 Urine WBC Clumps (Auto) Few H Ur Squamous Epith Cells 67 H Urine Bacteria Rare Urine Opiates Screen Urine Methadone Screen Ur Barbiturates Screen Ur Phencyclidine Scrn Ur Amphetamines Screen U Benzodiazepines Scrn U Oth Cocaine Metabols U Cannabinoids Screen Influenza Typ A,B (EIA) Negative for flu a/b 07/06/17 13:19 WBC RBC Hgb Hct MCV MCH MCHC RDW Plt Count MPV Neut % (Auto) Lymph % (Auto) [place] % (Auto) Eos % (Auto) Baso % (Auto) Neut # (Auto) Lymph # (Auto) [place] # (Auto) Eos # (Auto) Baso # (Auto) PT INR APTT Puncture Site pCO2 pO2 HCO3 ABG pH ABG Total CO2 ABG O2 Saturation ABG Base Excess Issa Test ABG Potassium A-a O2 Difference Respiratory Index Glucose Lactate Vent Mode FiO2 Inspiratory BiPAP Expiratory BiPAP Sodium Potassium Chloride Carbon Dioxide Anion Gap BUN Creatinine Est GFR ( Amer) Est GFR (Non-Af Amer) Random Glucose Calcium Phosphorus Magnesium Total Bilirubin AST ALT Alkaline Phosphatase Total Creatine Kinase CK-MB (Mass) Troponin I NT-Pro-B Natriuret Pep Total Protein Albumin Globulin Albumin/Globulin Ratio Arterial Blood Potassium Urine Color Urine Clarity Urine pH Ur Specific [place] Urine Protein Urine Glucose (UA) Urine Ketones Urine Blood Urine Nitrate Urine Bilirubin Urine Urobilinogen Ur Leukocyte Esterase Urine WBC (Auto) Urine RBC (Auto) Urine WBC Clumps (Auto) Ur Squamous Epith Cells Urine Bacteria Urine Opiates Screen Negative Urine Methadone Screen Negative Ur Barbiturates Screen Negative Ur Phencyclidine Scrn Negative Ur Amphetamines Screen Negative U Benzodiazepines Scrn Negative U Oth Cocaine Metabols Negative U Cannabinoids Screen Negative Influenza Typ A,B (EIA) Assessment & Plan - Assessment and Plan (Free Text) Assessment: 81 year old F [facility] here for [facility] likely 2/2 to aspiration pneumonia: Infectious Disease: Severe Sepsis Fluid challenge administered in ER -> NS 30 ml/kg Maintenance fluid LR @ 42cc/hr Elevated Lactic - Draw serial lactate levels Q4 F/U Blood Cx, Sputum Cx, Urine Cx NEGATIVE for Flu Will check oxycodone level as this may have caused her to aspirate Aztreonam 2g IVP BID Metronidazole 500mg IV BID Vancomycin 1g IV QD Pulm: Respiratory Distress requiring Bipap; Asthma Duoneb 3ml IH Q6H Con't home Montelukast 10mg PO QD Cardiology: Elevated Troponin, Hypotensive 2/2 to sepsis, Hx of HTN, Hx of HLD Cardiology consult, Dr Araujo ProBNP 5100 Serial TRACEY's Plavix 75mg PO QD Crestor 10mg PO HS Patient allergic to aspirin (rashes) Renal: KIRSTIN possible end organ damge due to severe sepsis Electrolytes: Hyponatremic monitor Endo: DM Accuchecks q6H ISS medium dose GI: No active Issues; Hx of Esophagectomy; Hx of GERD NPO for now Prophylactic Measures: Pepcid 20mg PO QD Heparin 5000u SC Q8H <Hannah Barron - Last Filed: 07/06/17 17:28> Meds - Medications Medications: Current Medications Acetaminophen (Tylenol 325mg Tab) 325 mg PO Q6 IKE Albuterol/Ipratropium (Duoneb 3 Mg/0.5 Mg (3 Ml) Ud) 3 ml IH RQ6 IKE Clopidogrel Bisulfate (Plavix) 75 mg PO DAILY [facility] Last Admin: 07/06/17 14:30 Dose: Not Given Famotidine (Pepcid) 20 mg PO DAILY [facility] Heparin Sodium (Porcine) (Heparin) 5,000 units SC Q8 IKE Aztreonam 2 gm/ Sodium (Chloride) 100 mls @ 200 mls/hr IVPB Q12H IKE Metronidazole (Flagyl) 500 mg in 100 mls @ 100 mls/hr IVPB Q12H IKE Vancomycin HCl 1 gm/ Sodium (Chloride) 200 mls @ 166.7 mls/hr IVPB Q24H [facility] Insulin Aspart (Novolog) 0 unit SC Q6H IKE PRN Reason: Protocol Methylprednisolone (Solu-Medrol) 40 mg IVP Q8 [facility] Last Admin: 02/16/18 16:14 Dose: 40 mg Montelukast Sodium (Singulair) 10 mg PO DAILY IKE Rosuvastatin Calcium (Crestor) 10 mg PO HS IKE Results - Vital Signs Recent Vital Signs: Last Vital Signs Temp 98.2 F 07/06/17 14:36 Pulse 100 H 07/06/17 15:40 Resp 14 07/06/17 15:40 BP 87/67 L 07/06/17 14:36 Pulse Ox 100 07/06/17 15:40 - Labs Result Diagrams: 07/06/17 11:09 07/06/17 11:09 Labs: Laboratory Results - last 24 hr 07/06/17 07/06/17 07/06/17 11:07 11:09 11:09 WBC 15.3 H RBC 3.28 L Hgb 10.8 L Hct 32.8 L MCV 100.0 H D MCH 32.9 H MCHC 32.9 L RDW 17.0 H Plt Count 543 H D MPV 7.7 Neut % (Auto) 84.3 H Lymph % (Auto) 11.8 L [place] % (Auto) 3.6 Eos % (Auto) 0.1 Baso % (Auto) 0.2 Neut # (Auto) 12.9 H Lymph # (Auto) 1.8 [place] # (Auto) 0.6 Eos # (Auto) 0.0 Baso # (Auto) 0.0 PT 13.6 H INR 1.2 APTT 24 Puncture Site pCO2 pO2 HCO3 ABG pH ABG Total CO2 ABG O2 Saturation ABG Base Excess Issa Test ABG Potassium A-a O2 Difference Respiratory Index Glucose Lactate Vent Mode FiO2 Inspiratory BiPAP Expiratory BiPAP Sodium Potassium Chloride Carbon Dioxide Anion Gap BUN Creatinine Est GFR ( Amer) Est GFR (Non-Af Amer) POC Glucose (mg/dL) 252 H Random Glucose Lactic Acid Calcium Phosphorus Magnesium Total Bilirubin AST ALT Alkaline Phosphatase Total Creatine Kinase CK-MB (Mass) Troponin I NT-Pro-B Natriuret Pep Total Protein Albumin Globulin Albumin/Globulin Ratio Arterial Blood Potassium Urine Color Urine Clarity Urine pH Ur Specific [place] Urine Protein Urine Glucose (UA) Urine Ketones Urine Blood Urine Nitrate Urine Bilirubin Urine Urobilinogen Ur Leukocyte Esterase Urine WBC (Auto) Urine RBC (Auto) Urine WBC Clumps (Auto) Ur Squamous Epith Cells Urine Bacteria Urine Opiates Screen Urine Methadone Screen Ur Barbiturates Screen Ur Phencyclidine Scrn Ur Amphetamines Screen U Benzodiazepines Scrn U Oth Cocaine Metabols U Cannabinoids Screen Influenza Typ A,B (EIA) 07/06/17 07/06/17 07/06/17 11:09 11:34 12:22 WBC RBC Hgb Hct MCV MCH MCHC RDW Plt Count MPV Neut % (Auto) Lymph % (Auto) [place] % (Auto) Eos % (Auto) Baso % (Auto) Neut # (Auto) Lymph # (Auto) [place] # (Auto) Eos # (Auto) Baso # (Auto) PT INR APTT Puncture Site Rb pCO2 26 L pO2 271 H HCO3 19.1 L ABG pH 7.39 ABG Total CO2 16.5 L ABG O2 Saturation 98.9 H ABG Base Excess -7.6 L Issa Test Na ABG Potassium 3.7 A-a O2 Difference 410.0 Respiratory Index 1.5 Glucose 262 H Lactate 3.4 H Vent Mode Bipap FiO2 100.0 Inspiratory BiPAP 12 Expiratory BiPAP 6 Sodium 129 L 131.0 L Potassium 4.1 Chloride 90 L 103.0 Carbon Dioxide 23 Anion Gap 19 BUN 40 H Creatinine 1.3 H Est GFR ( Amer) 48 Est GFR (Non-Af Amer) 40 POC Glucose (mg/dL) Random Glucose 226 H Lactic Acid Calcium 9.4 Phosphorus 5.3 H Magnesium 2.3 Total Bilirubin 0.7 AST 20 ALT 26 Alkaline Phosphatase 113 Total Creatine Kinase < 20 L CK-MB (Mass) 2.74 Troponin I 0.1450 H* NT-Pro-B Natriuret Pep 5100 H Total Protein 6.6 Albumin 3.3 L Globulin 3.3 Albumin/Globulin Ratio 1.0 Arterial Blood Potassium 3.7 Urine Color Urine Clarity Urine pH Ur Specific [place] Urine Protein Urine Glucose (UA) Urine Ketones Urine Blood Urine Nitrate Urine Bilirubin Urine Urobilinogen Ur Leukocyte Esterase Urine WBC (Auto) Urine RBC (Auto) Urine WBC Clumps (Auto) Ur Squamous Epith Cells Urine Bacteria Urine Opiates Screen Urine Methadone Screen Ur Barbiturates Screen Ur Phencyclidine Scrn Ur Amphetamines Screen U Benzodiazepines Scrn U Oth Cocaine Metabols U Cannabinoids Screen Influenza Typ A,B (EIA) Negative for flu a/b 07/06/17 07/06/17 07/06/17 13:19 13:19 14:48 WBC RBC Hgb Hct MCV MCH MCHC RDW Plt Count MPV Neut % (Auto) Lymph % (Auto) [place] % (Auto) Eos % (Auto) Baso % (Auto) Neut # (Auto) Lymph # (Auto) [place] # (Auto) Eos # (Auto) Baso # (Auto) PT INR APTT Puncture Site pCO2 pO2 HCO3 ABG pH ABG Total CO2 ABG O2 Saturation ABG Base Excess Issa Test ABG Potassium A-a O2 Difference Respiratory Index Glucose Lactate Vent Mode FiO2 Inspiratory BiPAP Expiratory BiPAP Sodium Potassium Chloride Carbon Dioxide Anion Gap BUN Creatinine Est GFR ( Amer) Est GFR (Non-Af Amer) POC Glucose (mg/dL) Random Glucose Lactic Acid 3.8 H Calcium Phosphorus Magnesium Total Bilirubin AST ALT Alkaline Phosphatase Total Creatine Kinase CK-MB (Mass) Troponin I NT-Pro-B Natriuret Pep Total Protein Albumin Globulin Albumin/Globulin Ratio Arterial Blood Potassium Urine Color Yellow Urine Clarity Hazy Urine pH 5.0 Ur Specific [place] 1.012 Urine Protein Negative Urine Glucose (UA) Normal Urine Ketones Negative Urine Blood Negative Urine Nitrate Negative Urine Bilirubin Negative Urine Urobilinogen Normal Ur Leukocyte Esterase 3+ H Urine WBC (Auto) 138 H Urine RBC (Auto) 3 Urine WBC Clumps (Auto) Few H Ur Squamous Epith Cells 67 H Urine Bacteria Rare Urine Opiates Screen Negative Urine Methadone Screen Negative Ur Barbiturates Screen Negative Ur Phencyclidine Scrn Negative Ur Amphetamines Screen Negative U Benzodiazepines Scrn Negative U Oth Cocaine Metabols Negative U Cannabinoids Screen Negative Influenza Typ A,B (EIA) 07/06/17 16:22 WBC RBC Hgb Hct MCV MCH MCHC RDW Plt Count MPV Neut % (Auto) Lymph % (Auto) [place] % (Auto) Eos % (Auto) Baso % (Auto) Neut # (Auto) Lymph # (Auto) [place] # (Auto) Eos # (Auto) Baso # (Auto) PT INR APTT Puncture Site pCO2 pO2 HCO3 ABG pH ABG Total CO2 ABG O2 Saturation ABG Base Excess Issa Test ABG Potassium A-a O2 Difference Respiratory Index Glucose Lactate Vent Mode FiO2 Inspiratory BiPAP Expiratory BiPAP Sodium Potassium Chloride Carbon Dioxide Anion Gap BUN Creatinine Est GFR ( Amer) Est GFR (Non-Af Amer) POC Glucose (mg/dL) 257 H Random Glucose Lactic Acid Calcium Phosphorus Magnesium Total Bilirubin AST ALT Alkaline Phosphatase Total Creatine Kinase CK-MB (Mass) Troponin I NT-Pro-B Natriuret Pep Total Protein Albumin Globulin Albumin/Globulin Ratio Arterial Blood Potassium Urine Color Urine Clarity Urine pH Ur Specific [place] Urine Protein Urine Glucose (UA) Urine Ketones Urine Blood Urine Nitrate Urine Bilirubin Urine Urobilinogen Ur Leukocyte Esterase Urine WBC (Auto) Urine RBC (Auto) Urine WBC Clumps (Auto) Ur Squamous Epith Cells Urine Bacteria Urine Opiates Screen Urine Methadone Screen Ur Barbiturates Screen Ur Phencyclidine Scrn Ur Amphetamines Screen U Benzodiazepines Scrn U Oth Cocaine Metabols U Cannabinoids Screen Influenza Typ A,B (EIA) Assessment & Plan - Assessment and Plan (Free Text) Plan: Above patient seen and examined at bedside with above resident. Patient's son informed the team that patient received percocet yesterday for back pain and today patient c/o cough, difficulty breathing. -suspect aspiration pneumonia: continue broad spectrum abx (vanco/aztreonam/ flagyl), serial lactic, obtain esparza culture, obtain sputum culture, doxy for atypical , check legionella -at risk of KIRSTIN: hold acei from long-term -continue all other heart medications -serial lactic to evalute resusitation efforts -Diastolic heart failure:continue long-term medications, BNP high with renal failure -NPO continue dvt/pud ppx Patient will benefit from ICu level care. cc time 35 minutes d/w above resident - Date & Time Date: 07/06/17 Time: 13:00
[2017-07-06] MEDS ORDERED: (Novolin 70/30) NPH/Regular 70/30 Units/ml 10 ml vial SC SCH (15:15)
[2017-07-06] MEDS ORDERED: Sodium Chloride 0.9% 1,000 ML IV ONE ×2 (16:01→16:02)
[2017-07-06] MEDS: MethylPREDNISolone 40 mg Vial IVP SCH ×2 (16:14→21:52)
[2017-07-06] MEDS ORDERED: (Novolin R) Insulin Human Regular 100 units/ml vial SC SCH (16:30)
[2017-07-06] MEDS ORDERED: (Novolog) Insulin Aspart, Recombinant 100 u/ml 10 ml vial SC SCH (17:15)
[2017-07-06] MEDS ORDERED: Lactated Ringer's 1,000 ML IV ONE (18:27)
[2017-07-06] MEDS: metroNIDAZOLE IV 500 mg/100 ml 500 MG/100 ML BAG IVPB SCH (18:33)
--- NOTE | 2017-07-06 18:58 | CP.PCM.HP ---
Past Patient History - Infectious Disease Hx of Infectious Diseases: None - Past Medical History & Family History Past Medical History?: Yes - Past Social History Smoking Status: Never Smoked - CARDIAC Hx Hypercholesterolemia: Yes Hx Hypertension: Yes - PULMONARY Hx Asthma: Yes Hx Bronchitis: Yes Hx Chronic Obstructive Pulmonary Disease (COPD): Yes Hx Pneumonia: Yes - NEUROLOGICAL Hx Neurological Disorder: No - HEENT Hx HEENT Problems: No Other/Comment: WEARS GLASSES - RENAL Hx Chronic Kidney Disease: No - ENDOCRINE/METABOLIC Hx Endocrine Disorders: Yes - HEMATOLOGICAL/ONCOLOGICAL Hx Blood Disorders: Yes Hx Cancer: Yes (Esophagus) - INTEGUMENTARY Hx Dermatological Problems: No - MUSCULOSKELETAL/RHEUMATOLOGICAL Hx Arthritis: Yes (R TKR; BACK PAIN) - GASTROINTESTINAL Hx Gastrointestinal Disorders: Yes Hx Gastroesophageal Reflux: Yes Other/Comment: hx of esophageal CA - GENITOURINARY/GYNECOLOGICAL Hx Genitourinary Disorders: Yes - PSYCHIATRIC Hx Substance Use: No - SURGICAL HISTORY Hx Surgeries: Yes Hx Breast Biopsy: Yes Hx Hysterectomy: Yes Hx Orthopedic Surgery: Yes (RTKR) Other/Comment: ESOPHAGEAL SX - ANESTHESIA Hx Anesthesia: Yes Hx Anesthesia Reactions: No Hx Malignant Hyperthermia: No Meds Allergies/Adverse Reactions: Allergies Allergy/AdvReac Type Severity Reaction Status Date / Time aspirin Allergy Severe RASH Verified 05/30/17 11:42 ciprofloxacin [From Cipro] Allergy Severe RASH Verified 05/30/17 11:42 ciprofloxacin HCl Allergy Severe RASH Verified 05/30/17 11:42 [From Cipro] nitrofurantoin Allergy Severe RASH Verified 05/30/17 11:42 [From Macrobid] nitrofurantoin Allergy Severe RASH Verified 05/30/17 11:42 macrocrystalline [From Macrobid] Penicillins Allergy Severe RASH Verified 05/30/17 11:42 Sulfa (Sulfonamide Allergy Severe RASH Verified 05/30/17 11:42 Antibiotics) azithromycin Allergy ITCHING Verified 05/30/17 11:42 Physical Exam - Constitutional Appears: Well - Head Exam Head Exam: ATRAUMATIC, NORMAL INSPECTION, NORMOCEPHALIC - Eye Exam Eye Exam: EOMI, Normal appearance, PERRL Pupil Exam: NORMAL ACCOMODATION, PERRL - ENT Exam ENT Exam: Mucous Membranes Moist, Normal Exam - Neck Exam Neck exam: Positive for: Normal Inspection - Respiratory Exam Respiratory Exam: Decreased Breath Sounds - Cardiovascular Exam Cardiovascular Exam: REGULAR RHYTHM, +S1, +S2 - GI/Abdominal Exam GI & Abdominal Exam: Diminished Bowel Sounds, Soft - Rectal Exam Rectal Exam: Deferred Results - Vital Signs Recent Vital Signs: Last Vital Signs Temp 98.2 F 07/06/17 14:36 Pulse 100 H 07/06/17 15:40 Resp 14 07/06/17 15:40 BP 87/67 L 07/06/17 14:36 Pulse Ox 100 07/06/17 15:40 - Labs Result Diagrams: 07/06/17 11:09 07/06/17 11:09 Labs: Laboratory Results - last 24 hr 07/06/17 07/06/17 07/06/17 11:07 11:09 11:09 WBC 15.3 H RBC 3.28 L Hgb 10.8 L Hct 32.8 L MCV 100.0 H D MCH 32.9 H MCHC 32.9 L RDW 17.0 H Plt Count 543 H D MPV 7.7 Neut % (Auto) 84.3 H Lymph % (Auto) 11.8 L [place] % (Auto) 3.6 Eos % (Auto) 0.1 Baso % (Auto) 0.2 Neut # (Auto) 12.9 H Lymph # (Auto) 1.8 [place] # (Auto) 0.6 Eos # (Auto) 0.0 Baso # (Auto) 0.0 PT 13.6 H INR 1.2 APTT 24 Puncture Site pCO2 pO2 HCO3 ABG pH ABG Total CO2 ABG O2 Saturation ABG Base Excess Issa Test ABG Potassium A-a O2 Difference Respiratory Index Glucose Lactate Vent Mode FiO2 Inspiratory BiPAP Expiratory BiPAP Sodium Potassium Chloride Carbon Dioxide Anion Gap BUN Creatinine Est GFR ( Amer) Est GFR (Non-Af Amer) POC Glucose (mg/dL) 252 H Random Glucose Lactic Acid Calcium Phosphorus Magnesium Total Bilirubin AST ALT Alkaline Phosphatase Total Creatine Kinase CK-MB (Mass) Troponin I NT-Pro-B Natriuret Pep Total Protein Albumin Globulin Albumin/Globulin Ratio Arterial Blood Potassium Urine Color Urine Clarity Urine pH Ur Specific [place] Urine Protein Urine Glucose (UA) Urine Ketones Urine Blood Urine Nitrate Urine Bilirubin Urine Urobilinogen Ur Leukocyte Esterase Urine WBC (Auto) Urine RBC (Auto) Urine WBC Clumps (Auto) Ur Squamous Epith Cells Urine Bacteria Urine Opiates Screen Urine Methadone Screen Ur Barbiturates Screen Ur Phencyclidine Scrn Ur Amphetamines Screen U Benzodiazepines Scrn U Oth Cocaine Metabols U Cannabinoids Screen Influenza Typ A,B (EIA) 07/06/17 07/06/17 07/06/17 11:09 11:34 12:22 WBC RBC Hgb Hct MCV MCH MCHC RDW Plt Count MPV Neut % (Auto) Lymph % (Auto) [place] % (Auto) Eos % (Auto) Baso % (Auto) Neut # (Auto) Lymph # (Auto) [place] # (Auto) Eos # (Auto) Baso # (Auto) PT INR APTT Puncture Site Rb pCO2 26 L pO2 271 H HCO3 19.1 L ABG pH 7.39 ABG Total CO2 16.5 L ABG O2 Saturation 98.9 H ABG Base Excess -7.6 L Issa Test Na ABG Potassium 3.7 A-a O2 Difference 410.0 Respiratory Index 1.5 Glucose 262 H Lactate 3.4 H Vent Mode Bipap FiO2 100.0 Inspiratory BiPAP 12 Expiratory BiPAP 6 Sodium 129 L 131.0 L Potassium 4.1 Chloride 90 L 103.0 Carbon Dioxide 23 Anion Gap 19 BUN 40 H Creatinine 1.3 H Est GFR ( Amer) 48 Est GFR (Non-Af Amer) 40 POC Glucose (mg/dL) Random Glucose 226 H Lactic Acid Calcium 9.4 Phosphorus 5.3 H Magnesium 2.3 Total Bilirubin 0.7 AST 20 ALT 26 Alkaline Phosphatase 113 Total Creatine Kinase < 20 L CK-MB (Mass) 2.74 Troponin I 0.1450 H* NT-Pro-B Natriuret Pep 5100 H Total Protein 6.6 Albumin 3.3 L Globulin 3.3 Albumin/Globulin Ratio 1.0 Arterial Blood Potassium 3.7 Urine Color Urine Clarity Urine pH Ur Specific [place] Urine Protein Urine Glucose (UA) Urine Ketones Urine Blood Urine Nitrate Urine Bilirubin Urine Urobilinogen Ur Leukocyte Esterase Urine WBC (Auto) Urine RBC (Auto) Urine WBC Clumps (Auto) Ur Squamous Epith Cells Urine Bacteria Urine Opiates Screen Urine Methadone Screen Ur Barbiturates Screen Ur Phencyclidine Scrn Ur Amphetamines Screen U Benzodiazepines Scrn U Oth Cocaine Metabols U Cannabinoids Screen Influenza Typ A,B (EIA) Negative for flu a/b 07/06/17 07/06/17 07/06/17 13:19 13:19 14:48 WBC RBC Hgb Hct MCV MCH MCHC RDW Plt Count MPV Neut % (Auto) Lymph % (Auto) [place] % (Auto) Eos % (Auto) Baso % (Auto) Neut # (Auto) Lymph # (Auto) [place] # (Auto) Eos # (Auto) Baso # (Auto) PT INR APTT Puncture Site pCO2 pO2 HCO3 ABG pH ABG Total CO2 ABG O2 Saturation ABG Base Excess Issa Test ABG Potassium A-a O2 Difference Respiratory Index Glucose Lactate Vent Mode FiO2 Inspiratory BiPAP Expiratory BiPAP Sodium Potassium Chloride Carbon Dioxide Anion Gap BUN Creatinine Est GFR ( Amer) Est GFR (Non-Af Amer) POC Glucose (mg/dL) Random Glucose Lactic Acid 3.8 H Calcium Phosphorus Magnesium Total Bilirubin AST ALT Alkaline Phosphatase Total Creatine Kinase CK-MB (Mass) Troponin I NT-Pro-B Natriuret Pep Total Protein Albumin Globulin Albumin/Globulin Ratio Arterial Blood Potassium Urine Color Yellow Urine Clarity Hazy Urine pH 5.0 Ur Specific [place] 1.012 Urine Protein Negative Urine Glucose (UA) Normal Urine Ketones Negative Urine Blood Negative Urine Nitrate Negative Urine Bilirubin Negative Urine Urobilinogen Normal Ur Leukocyte Esterase 3+ H Urine WBC (Auto) 138 H Urine RBC (Auto) 3 Urine WBC Clumps (Auto) Few H Ur Squamous Epith Cells 67 H Urine Bacteria Rare Urine Opiates Screen Negative Urine Methadone Screen Negative Ur Barbiturates Screen Negative Ur Phencyclidine Scrn Negative Ur Amphetamines Screen Negative U Benzodiazepines Scrn Negative U Oth Cocaine Metabols Negative U Cannabinoids Screen Negative Influenza Typ A,B (EIA) 07/06/17 16:22 WBC RBC Hgb Hct MCV MCH MCHC RDW Plt Count MPV Neut % (Auto) Lymph % (Auto) [place] % (Auto) Eos % (Auto) Baso % (Auto) Neut # (Auto) Lymph # (Auto) [place] # (Auto) Eos # (Auto) Baso # (Auto) PT INR APTT Puncture Site pCO2 pO2 HCO3 ABG pH ABG Total CO2 ABG O2 Saturation ABG Base Excess [place] Test ABG Potassium A-a O2 Difference Respiratory Index Glucose Lactate Vent Mode FiO2 Inspiratory BiPAP Expiratory BiPAP Sodium Potassium Chloride Carbon Dioxide Anion Gap BUN Creatinine Est GFR ( Amer) Est GFR (Non-Af Amer) POC Glucose (mg/dL) 257 H Random Glucose Lactic Acid Calcium Phosphorus Magnesium Total Bilirubin AST ALT Alkaline Phosphatase Total Creatine Kinase CK-MB (Mass) Troponin I NT-Pro-B Natriuret Pep Total Protein Albumin Globulin Albumin/Globulin Ratio Arterial Blood Potassium Urine Color Urine Clarity Urine pH Ur Specific [place] Urine Protein Urine Glucose (UA) Urine Ketones Urine Blood Urine Nitrate Urine Bilirubin Urine Urobilinogen Ur Leukocyte Esterase Urine WBC (Auto) Urine RBC (Auto) Urine WBC Clumps (Auto) Ur Squamous Epith Cells Urine Bacteria Urine Opiates Screen Urine Methadone Screen Ur Barbiturates Screen Ur Phencyclidine Scrn Ur Amphetamines Screen U Benzodiazepines Scrn U Oth Cocaine Metabols U Cannabinoids Screen Influenza Typ A,B (EIA)
[2017-07-06] MEDS: Aztreonam 2 GM in Sodium Chloride 0.9% 100 ML IVPB SCH (20:00)
[2017-07-06] MEDS: Albuterol-Ipratrop 3 mg / 0.5 (3 ml) UD IH SCH (21:00)
[2017-07-07] MEDS: (Novolog) Insulin Aspart, Recombinant 100 u/ml 10 ml vial SC SCH ×4 (00:22→17:38)
[2017-07-07 01:00] LABS: CK-MB 3.43 ng/mL (0.0-3.38)
[2017-07-07] MEDS: Albuterol-Ipratrop 3 mg / 0.5 (3 ml) UD IH SCH ×4 (01:21→19:47)
[2017-07-07] MEDS: metroNIDAZOLE IV 500 mg/100 ml 500 MG/100 ML BAG IVPB SCH ×2 (06:01→17:32)
[2017-07-07] MEDS: MethylPREDNISolone 40 mg Vial IVP SCH ×3 (06:03→22:48)
[2017-07-07 06:28] LABS: BASO % 0.1 % (0.0-2.0); LYMPH # 0.3 K/uL (1.0-4.3); LYMPH % 2.8 % (20.0-40.0); MEAN CELL VOLUME 99.7 fL (81.0-99.0); MEAN CORPUSCULAR HEMOGLOBIN 33.7 pg (27.0-31.0); MEAN CORPUSCULAR HGB CONC 33.8 g/dL (33.0-37.0); MEAN PLATELET VOLUME 7.8 fL (7.2-11.7); MONO # 0.2 K/uL (0.0-0.8); MONO % 2.3 % (0.0-10.0); NEUT # 10.1 K/uL (1.8-7.0); NEUT % 94.8 % (50.0-75.0); NRBC % 0.1 % (0.0-2.0); PLATELET COUNT 334 K/uL (130-400); RBC 2.59 Mil/uL (3.80-5.20); RED CELL DISTRIBUTION WIDTH 17.3 % (11.5-14.5); WHITE BLOOD COUNT 10.6 K/uL (4.8-10.8)
[2017-07-07 06:40] LABS: HEMOGLOBIN 8.7 g/dL (11.0-16.0)
[2017-07-07 06:59] LABS: ALBUMIN 2.7 g/dL (3.5-5.0); ALT/SGPT 34 U/L (9-52); AST/SGOT 17 U/L (14-36); BLOOD UREA NITROGEN 33 mg/dL (7-17); CALCIUM 8.2 mg/dl (8.6-10.4); GFR AFRICAN-AMERICAN > 60; GFR NON-AFRICAN AMERICAN > 60; MAGNESIUM 1.9 mg/dL (1.6-2.3)
[2017-07-07] MEDS: Aztreonam 2 GM in Sodium Chloride 0.9% 100 ML IVPB SCH ×2 (07:14→19:20)
[2017-07-07] MEDS: Vancomycin 1 GM in Sodium Chloride 0.9% 200 ML IVPB SCH (08:06)
[2017-07-07 08:23] LABS: BANDS 7 % (0-2); LYMPHOCYTE 2 % (20-40); MONOCYTE 5 % (0-10); NEUTROPHIL 86 % (50-75); PLATELET ESTIMATE NORMAL (NORMAL); TOTAL CELLS COUNTED 100
[2017-07-07 08:24] LABS: ANISOCYTOSIS SLIGHT; OVALOCYTES SLIGHT; POIKILOCYTOSIS SLIGHT; POLYCHROMIC SLIGHT
--- NOTE | 2017-07-07 09:32 | CP.PCM.PN ---
Subjective - Date & Time of Evaluation Date of Evaluation: 07/07/17 Time of Evaluation: 09:27 - Subjective Subjective: Patient more awake alert in NAD on nasal canula Objective - Vital Signs/Intake and Output Vital Signs (last 24 hours): Temp Pulse Resp BP Pulse Ox 97.4 F L 84 12 128/77 99 07/06/17 20:00 07/07/17 08:04 07/07/17 08:00 07/07/17 07:39 07/07/17 08:00 Intake and Output: 07/07/17 07/07/17 06:59 18:59 Intake Total 184 42 Output Total 100 50 Balance 84 -8 - Medications Medications: Current Medications Acetaminophen (Tylenol 325mg Tab) 325 mg PO Q6 [facility] Last Admin: 07/07/17 06:03 Dose: Not Given Albuterol/Ipratropium (Duoneb 3 Mg/0.5 Mg (3 Ml) Ud) 3 ml IH RQ6 [facility] Last Admin: 07/07/17 08:03 Dose: 3 ml Clopidogrel Bisulfate (Plavix) 75 mg PO DAILY [facility] Last Admin: 07/06/17 14:30 Dose: Not Given Docusate Sodium (Colace) 100 mg PO DAILY [facility] Famotidine (Pepcid) 20 mg PO DAILY [facility] Heparin Sodium (Porcine) (Heparin) 5,000 units SC Q8 [facility] Last Admin: 07/07/17 06:02 Dose: 5,000 units Aztreonam 2 gm/ Sodium (Chloride) 100 mls @ 200 mls/hr IVPB Q12H [facility] Last Admin: 07/07/17 07:14 Dose: 200 mls/hr Metronidazole (Flagyl) 500 mg in 100 mls @ 100 mls/hr IVPB Q12H [facility] Last Admin: 07/07/17 06:01 Dose: 100 mls/hr Vancomycin HCl 1 gm/ Sodium (Chloride) 200 mls @ 166.7 mls/hr IVPB Q24H [facility] Insulin Aspart (Novolog) 0 unit SC Q6 [facility] PRN Reason: Protocol Last Admin: 07/07/17 06:38 Dose: Not Given Methylprednisolone (Solu-Medrol) 40 mg IVP Q8 [facility] Last Admin: 07/07/17 06:03 Dose: 40 mg Montelukast Sodium (Singulair) 10 mg PO DAILY [facility] Potassium Chloride (Klor-Con 10) 10 meq PO DAILY [facility] Rosuvastatin Calcium (Crestor) 10 mg PO HS [facility] Last Admin: 07/06/17 21:57 Dose: 10 mg Sennosides (Senokot Tab) 8.6 mg PO BID [facility] - Labs Labs: 07/07/17 06:21 07/07/17 06:22 PT 13.6 SECONDS (9.7-12.2) H 07/06/17 11:09 INR 1.2 07/06/17 11:09 APTT 24 SECONDS (21-34) 07/06/17 11:09 - Constitutional Appears: Well - Head Exam Head Exam: ATRAUMATIC, NORMAL INSPECTION - Eye Exam Pupil Exam: NORMAL ACCOMODATION, PERRL - ENT Exam ENT Exam: Mucous Membranes Moist - Neck Exam Neck Exam: Full ROM - Respiratory Exam Respiratory Exam: Clear to Ausculation Bilateral, Wheezes Additional comments: Patient has upper respiratory sounds, which resolves once patient coughs - Cardiovascular Exam Cardiovascular Exam: REGULAR RHYTHM, +S1, +S2 - GI/Abdominal Exam GI & Abdominal Exam: Normal Bowel Sounds - Extremities Exam Extremities Exam: Normal Inspection - Back Exam Back Exam: NORMAL INSPECTION Assessment and Plan - Assessment and Plan (Free Text) Plan: 81 year old F [place] in [place] here for sepsis likely 2/2 to aspiration pneumonia: -Aspiration Pneumonia: WBc normalized, no fevers, tolerated IV abx, f/u cultures , lactic pending, continue abx Aztreonam 2g IVP BID Metronidazole 500mg IV BID Vancomycin 1g IV QD -h/o asthma:continue solumedrol and duonebs Duoneb 3ml IH Q6H Con't home Montelukast 10mg PO QD -Cardiology: at risk of CAD/NSTEMI/type II ME -continue Plavix 75mg PO QD,Crestor 10mg PO HS, av antonino sena and acei as BP tolerates -Renal: KIRSTIN: resolved - Electrolytes:check and replace DM -continue, Accuchecks q6H, ISS medium dose GI: start tube feeds -continue dvt/pud ppx Patient OOB to chair Patient remains hemodynamically stable
--- NOTE | 2017-07-07 10:09 | RAD ---
HISTORY: copd COMPARISON: Comparison is made with 07/06/2017 FINDINGS: LUNGS: Again seen are small patchy opacities which appear more conspicuous compared to the previous exam and more prominent at the lower lobes. PLEURA: Blunting of the right costophrenic angle is again noted. CARDIOVASCULAR: Normal. OSSEOUS STRUCTURES: No significant abnormalities. VISUALIZED UPPER ABDOMEN: Normal. OTHER FINDINGS: None. IMPRESSION: Small opacities more prominent at the lower lobe. Hyperinflation of the lungs consistent with the patient's history of COPD. No other interval change noted.
--- NOTE | 2017-07-07 12:46 | CP.PCM.CON ---
History of Present Illness - History of Present Illness History of Present Illness: reason for consultation: Shortness of breath Requiring BiPAP and cough patient is 81-year-old female with asthma/the current bronchitis/pneumonia who was treated last year for severe COPD exacerbation/bronchitis and transferred to subacute and got readmitted recently with pneumonia. patient was transferred to ER yesterday from half-way for shortness of breath, cough. Patient was placed on BiPAP for respirators stress and started on IV antibiotic, status post code sesis with the elevated lactate/hypotension and diagnoses of aspiration pneumonia. Her urine is positive for gram-negative raw PMH: Asthma, Bronchitis, HTN, HLD, Acid Reflux, Arthritis, Pneumonia, Urinary Incontinence PSH: Esophagectomy, Hysterectomy Medications: Duoneb 3 ml q6, Breo Ellipta 100-25 Mcg daily, Valsartan-Hctz 80- 12.5 mg daily, Crestor 10 mg daily, Nexium 40 mg daily Allergies: Aspirin, Ciprofloxacin, Ciprofloxacin HCl, Nitrofuantoin, Nitrofuantoin Macrocrystalline, Penicillin, Sulfa Family History: Father from metastatic Prostate Cancer, mother from Tuberculosis Social History: Denies tobacco and drug use, drinks champagne and wine socially ; , lives in [place] Review of Systems - Review of Systems All systems: reviewed and no additional remarkable complaints except (cough and shortness of breath) Past Patient History - Infectious Disease Hx of Infectious Diseases: None - Past Medical History & Family History Past Medical History?: Yes - Past Social History Smoking Status: Never Smoked - CARDIAC Hx Hypercholesterolemia: Yes Hx Hypertension: Yes - PULMONARY Hx Asthma: Yes Hx Bronchitis: Yes Hx Chronic Obstructive Pulmonary Disease (COPD): Yes Hx Pneumonia: Yes - NEUROLOGICAL Hx Neurological Disorder: No - HEENT Hx HEENT Problems: No Other/Comment: WEARS GLASSES - RENAL Hx Chronic Kidney Disease: No - ENDOCRINE/METABOLIC Hx Endocrine Disorders: Yes - HEMATOLOGICAL/ONCOLOGICAL Hx Blood Disorders: Yes Hx Cancer: Yes (Esophagus) - INTEGUMENTARY Hx Dermatological Problems: No - MUSCULOSKELETAL/RHEUMATOLOGICAL Hx Arthritis: Yes (R TKR; BACK PAIN) - GASTROINTESTINAL Hx Gastrointestinal Disorders: Yes Hx Gastroesophageal Reflux: Yes Other/Comment: hx of esophageal CA - GENITOURINARY/GYNECOLOGICAL Hx Genitourinary Disorders: Yes - PSYCHIATRIC Hx Substance Use: No - SURGICAL HISTORY Hx Surgeries: Yes Hx Breast Biopsy: Yes Hx Hysterectomy: Yes Hx Orthopedic Surgery: Yes (RTKR) Other/Comment: ESOPHAGEAL SX - ANESTHESIA Hx Anesthesia: Yes Hx Anesthesia Reactions: No Hx Malignant Hyperthermia: No Meds Allergies/Adverse Reactions: Allergies Allergy/AdvReac Type Severity Reaction Status Date / Time aspirin Allergy Severe RASH Verified 05/30/17 11:42 ciprofloxacin [From Cipro] Allergy Severe RASH Verified 05/30/17 11:42 ciprofloxacin HCl Allergy Severe RASH Verified 05/30/17 11:42 [From Cipro] nitrofurantoin Allergy Severe RASH Verified 05/30/17 11:42 [From Macrobid] nitrofurantoin Allergy Severe RASH Verified 05/30/17 11:42 macrocrystalline [From Macrobid] Penicillins Allergy Severe RASH Verified 05/30/17 11:42 Sulfa (Sulfonamide Allergy Severe RASH Verified 05/30/17 11:42 Antibiotics) azithromycin Allergy ITCHING Verified 05/30/17 11:42 - Medications Medications: Current Medications Acetaminophen (Tylenol 325mg Tab) 325 mg PO Q6 [facility] Last Admin: 07/07/17 06:03 Dose: Not Given Albuterol/Ipratropium (Duoneb 3 Mg/0.5 Mg (3 Ml) Ud) 3 ml IH RQ6 [facility] Last Admin: 07/07/17 08:03 Dose: 3 ml Clopidogrel Bisulfate (Plavix) 75 mg PO DAILY [facility] Last Admin: 07/06/17 14:30 Dose: Not Given Docusate Sodium (Colace) 100 mg PO DAILY [facility] Famotidine (Pepcid) 20 mg PO DAILY [facility] Heparin Sodium (Porcine) (Heparin) 5,000 units SC Q8 [facility] Last Admin: 07/07/17 06:02 Dose: 5,000 units Aztreonam 2 gm/ Sodium (Chloride) 100 mls @ 200 mls/hr IVPB Q12H [facility] Last Admin: 07/07/17 07:14 Dose: 200 mls/hr Metronidazole (Flagyl) 500 mg in 100 mls @ 100 mls/hr IVPB Q12H [facility] Last Admin: 07/07/17 06:01 Dose: 100 mls/hr Vancomycin HCl 1 gm/ Sodium (Chloride) 200 mls @ 166.7 mls/hr IVPB Q24H [facility] Last Admin: 07/07/17 08:06 Dose: 166.7 mls/hr Potassium Chloride (Potassium Chloride 20 Meq/100 Ml) 20 meq in 100 mls @ 50 mls/hr IVPB Q2H [facility] Stop: 07/07/17 16:29 Insulin Aspart (Novolog) 0 unit SC Q6 [facility] PRN Reason: Protocol Last Admin: 07/07/17 06:38 Dose: Not Given Methylprednisolone (Solu-Medrol) 40 mg IVP Q8 [facility] Last Admin: 07/07/17 06:03 Dose: 40 mg Montelukast Sodium (Singulair) 10 mg PO DAILY [facility] Potassium Chloride (Klor-Con 10) 10 meq PO DAILY [facility] Potassium Chloride (Potassium Chloride Oral Soln) 40 meq PO Q6H [facility] Stop: 07/08/17 00:31 Rosuvastatin Calcium (Crestor) 10 mg PO HS [facility] Last Admin: 07/06/17 21:57 Dose: 10 mg Sennosides (Senokot Tab) 8.6 mg PO BID [facility] Physical Exam - Head Exam Head Exam: ATRAUMATIC, NORMOCEPHALIC - Eye Exam Eye Exam: Normal appearance - ENT Exam ENT Exam: Mucous Membranes Moist - Neck Exam Neck exam: Positive for: Normal Inspection - Respiratory Exam Respiratory Exam: Rhonchi, Wheezes - Cardiovascular Exam Cardiovascular Exam: REGULAR RHYTHM - GI/Abdominal Exam GI & Abdominal Exam: Normal Bowel Sounds, Soft Results - Vital Signs Recent Vital Signs: Last Vital Signs Temp 97.4 F L 07/06/17 20:00 Pulse 104 H 07/07/17 12:00 Resp 21 07/07/17 12:00 BP 125/62 07/07/17 12:00 Pulse Ox 100 07/07/17 12:00 - Labs Result Diagrams: 07/07/17 06:21 07/07/17 06:22 Labs: Laboratory Results - last 24 hr 07/06/17 07/06/17 07/06/17 11:07 11:09 12:22 WBC RBC Hgb Hct MCV MCH MCHC RDW Plt Count MPV Neut % (Auto) Lymph % (Auto) [place] % (Auto) Eos % (Auto) Baso % (Auto) Neut # (Auto) Lymph # (Auto) [place] # (Auto) Eos # (Auto) Baso # (Auto) Neutrophils % (Manual) Band Neutrophils % Lymphocytes % (Manual) Monocytes % (Manual) Platelet Estimate Polychromasia Poikilocytosis (manual Anisocytosis (manual) Macrocytosis (manual) Ovalocytes Sodium 129 L Potassium 4.1 Chloride 90 L Carbon Dioxide 23 Anion Gap 19 BUN 40 H Creatinine 1.3 H Est GFR ( Amer) 48 Est GFR (Non-Af Amer) 40 POC Glucose (mg/dL) 252 H Random Glucose 226 H Lactic Acid Calcium 9.4 Phosphorus 5.3 H Magnesium 2.3 Total Bilirubin 0.7 AST 20 ALT 26 Alkaline Phosphatase 113 Total Creatine Kinase < 20 L CK-MB (Mass) 2.74 Troponin I 0.1450 H* NT-Pro-B Natriuret Pep 5100 H Total Protein 6.6 Albumin 3.3 L Globulin 3.3 Albumin/Globulin Ratio 1.0 Urine Color Urine Clarity Urine pH Ur Specific [place] Urine Protein Urine Glucose (UA) Urine Ketones Urine Blood Urine Nitrate Urine Bilirubin Urine Urobilinogen Ur Leukocyte Esterase Urine WBC (Auto) Urine RBC (Auto) Urine WBC Clumps (Auto) Ur Squamous Epith Cells Urine Bacteria Urine Opiates Screen Urine Methadone Screen Ur Barbiturates Screen Ur Phencyclidine Scrn Ur Amphetamines Screen U Benzodiazepines Scrn U Oth Cocaine Metabols U Cannabinoids Screen Influenza Typ A,B (EIA) Negative for flu a/b 07/06/17 07/06/17 07/06/17 13:19 13:19 14:48 WBC RBC Hgb Hct MCV MCH MCHC RDW Plt Count MPV Neut % (Auto) Lymph % (Auto) [place] % (Auto) Eos % (Auto) Baso % (Auto) Neut # (Auto) Lymph # (Auto) [place] # (Auto) Eos # (Auto) Baso # (Auto) Neutrophils % (Manual) Band Neutrophils % Lymphocytes % (Manual) Monocytes % (Manual) Platelet Estimate Polychromasia Poikilocytosis (manual Anisocytosis (manual) Macrocytosis (manual) Ovalocytes Sodium Potassium Chloride Carbon Dioxide Anion Gap BUN Creatinine Est GFR ( Amer) Est GFR (Non-Af Amer) POC Glucose (mg/dL) Random Glucose Lactic Acid 3.8 H Calcium Phosphorus Magnesium Total Bilirubin AST ALT Alkaline Phosphatase Total Creatine Kinase CK-MB (Mass) Troponin I NT-Pro-B Natriuret Pep Total Protein Albumin Globulin Albumin/Globulin Ratio Urine Color Yellow Urine Clarity Hazy Urine pH 5.0 Ur Specific [place] 1.012 Urine Protein Negative Urine Glucose (UA) Normal Urine Ketones Negative Urine Blood Negative Urine Nitrate Negative Urine Bilirubin Negative Urine Urobilinogen Normal Ur Leukocyte Esterase 3+ H Urine WBC (Auto) 138 H Urine RBC (Auto) 3 Urine WBC Clumps (Auto) Few H Ur Squamous Epith Cells 67 H Urine Bacteria Rare Urine Opiates Screen Negative Urine Methadone Screen Negative Ur Barbiturates Screen Negative Ur Phencyclidine Scrn Negative Ur Amphetamines Screen Negative U Benzodiazepines Scrn Negative U Oth Cocaine Metabols Negative U Cannabinoids Screen Negative Influenza Typ A,B (EIA) 07/06/17 07/06/17 07/06/17 16:22 18:57 22:29 WBC RBC Hgb Hct MCV MCH MCHC RDW Plt Count MPV Neut % (Auto) Lymph % (Auto) [place] % (Auto) Eos % (Auto) Baso % (Auto) Neut # (Auto) Lymph # (Auto) [place] # (Auto) Eos # (Auto) Baso # (Auto) Neutrophils % (Manual) Band Neutrophils % Lymphocytes % (Manual) Monocytes % (Manual) Platelet Estimate Polychromasia Poikilocytosis (manual Anisocytosis (manual) Macrocytosis (manual) Ovalocytes Sodium Potassium Chloride Carbon Dioxide Anion Gap BUN Creatinine Est GFR ( Amer) Est GFR (Non-Af Amer) POC Glucose (mg/dL) 257 H Random Glucose Lactic Acid 3.1 H 2.1 Calcium Phosphorus Magnesium Total Bilirubin AST ALT Alkaline Phosphatase Total Creatine Kinase CK-MB (Mass) Troponin I NT-Pro-B Natriuret Pep Total Protein Albumin Globulin Albumin/Globulin Ratio Urine Color Urine Clarity Urine pH Ur Specific [place] Urine Protein Urine Glucose (UA) Urine Ketones Urine Blood Urine Nitrate Urine Bilirubin Urine Urobilinogen Ur Leukocyte Esterase Urine WBC (Auto) Urine RBC (Auto) Urine WBC Clumps (Auto) Ur Squamous Epith Cells Urine Bacteria Urine Opiates Screen Urine Methadone Screen Ur Barbiturates Screen Ur Phencyclidine Scrn Ur Amphetamines Screen U Benzodiazepines Scrn U Oth Cocaine Metabols U Cannabinoids Screen Influenza Typ A,B (EIA) 07/06/17 07/07/17 07/07/17 23:44 00:34 06:21 WBC 10.6 RBC 2.59 L Hgb 8.7 L D Hct 25.8 L MCV 99.7 H MCH 33.7 H MCHC 33.8 RDW 17.3 H Plt Count 334 D MPV 7.8 Neut % (Auto) 94.8 H Lymph % (Auto) 2.8 L [place] % (Auto) 2.3 Eos % (Auto) 0.0 Baso % (Auto) 0.1 Neut # (Auto) 10.1 H Lymph # (Auto) 0.3 L [place] # (Auto) 0.2 Eos # (Auto) 0.0 Baso # (Auto) 0.0 Neutrophils % (Manual) 86 H Band Neutrophils % 7 H Lymphocytes % (Manual) 2 L Monocytes % (Manual) 5 Platelet Estimate Normal Polychromasia Slight Poikilocytosis (manual Slight Anisocytosis (manual) Slight Macrocytosis (manual) Slight Ovalocytes Slight Sodium Potassium Chloride Carbon Dioxide Anion Gap BUN Creatinine Est GFR ( Amer) Est GFR (Non-Af Amer) POC Glucose (mg/dL) 215 H Random Glucose Lactic Acid Calcium Phosphorus Magnesium Total Bilirubin AST ALT Alkaline Phosphatase Total Creatine Kinase < 20 L CK-MB (Mass) 3.43 H Troponin I 0.0840 NT-Pro-B Natriuret Pep Total Protein Albumin Globulin Albumin/Globulin Ratio Urine Color Urine Clarity Urine pH Ur Specific [place] Urine Protein Urine Glucose (UA) Urine Ketones Urine Blood Urine Nitrate Urine Bilirubin Urine Urobilinogen Ur Leukocyte Esterase Urine WBC (Auto) Urine RBC (Auto) Urine WBC Clumps (Auto) Ur Squamous Epith Cells Urine Bacteria Urine Opiates Screen Urine Methadone Screen Ur Barbiturates Screen Ur Phencyclidine Scrn Ur Amphetamines Screen U Benzodiazepines Scrn U Oth Cocaine Metabols U Cannabinoids Screen Influenza Typ A,B (EIA) 07/07/17 07/07/17 07/07/17 06:22 06:26 07:33 WBC RBC Hgb Hct MCV MCH MCHC RDW Plt Count MPV Neut % (Auto) Lymph % (Auto) [place] % (Auto) Eos % (Auto) Baso % (Auto) Neut # (Auto) Lymph # (Auto) [place] # (Auto) Eos # (Auto) Baso # (Auto) Neutrophils % (Manual) Band Neutrophils % Lymphocytes % (Manual) Monocytes % (Manual) Platelet Estimate Polychromasia Poikilocytosis (manual Anisocytosis (manual) Macrocytosis (manual) Ovalocytes Sodium 134 Potassium 3.0 L Chloride 102 Carbon Dioxide 21 L Anion Gap 14 BUN 33 H Creatinine 0.8 Est GFR ( Amer) > 60 Est GFR (Non-Af Amer) > 60 POC Glucose (mg/dL) 215 H 187 H Random Glucose 194 H Lactic Acid Calcium 8.2 L Phosphorus 3.8 Magnesium 1.9 Total Bilirubin 0.4 AST 17 ALT 34 Alkaline Phosphatase 82 Total Creatine Kinase CK-MB (Mass) Troponin I NT-Pro-B Natriuret Pep Total Protein 5.4 L Albumin 2.7 L Globulin 2.7 Albumin/Globulin Ratio 1.0 Urine Color Urine Clarity Urine pH Ur Specific [place] Urine Protein Urine Glucose (UA) Urine Ketones Urine Blood Urine Nitrate Urine Bilirubin Urine Urobilinogen Ur Leukocyte Esterase Urine WBC (Auto) Urine RBC (Auto) Urine WBC Clumps (Auto) Ur Squamous Epith Cells Urine Bacteria Urine Opiates Screen Urine Methadone Screen Ur Barbiturates Screen Ur Phencyclidine Scrn Ur Amphetamines Screen U Benzodiazepines Scrn U Oth Cocaine Metabols U Cannabinoids Screen Influenza Typ A,B (EIA) 07/07/17 12:35 WBC RBC Hgb Hct MCV MCH MCHC RDW Plt Count MPV Neut % (Auto) Lymph % (Auto) [place] % (Auto) Eos % (Auto) Baso % (Auto) Neut # (Auto) Lymph # (Auto) [place] # (Auto) Eos # (Auto) Baso # (Auto) Neutrophils % (Manual) Band Neutrophils % Lymphocytes % (Manual) Monocytes % (Manual) Platelet Estimate Polychromasia Poikilocytosis (manual Anisocytosis (manual) Macrocytosis (manual) Ovalocytes Sodium Potassium Chloride Carbon Dioxide Anion Gap BUN Creatinine Est GFR ( Amer) Est GFR (Non-Af Amer) POC Glucose (mg/dL) 207 H Random Glucose Lactic Acid Calcium Phosphorus Magnesium Total Bilirubin AST ALT Alkaline Phosphatase Total Creatine Kinase CK-MB (Mass) Troponin I NT-Pro-B Natriuret Pep Total Protein Albumin Globulin Albumin/Globulin Ratio Urine Color Urine Clarity Urine pH Ur Specific [place] Urine Protein Urine Glucose (UA) Urine Ketones Urine Blood Urine Nitrate Urine Bilirubin Urine Urobilinogen Ur Leukocyte Esterase Urine WBC (Auto) Urine RBC (Auto) Urine WBC Clumps (Auto) Ur Squamous Epith Cells Urine Bacteria Urine Opiates Screen Urine Methadone Screen Ur Barbiturates Screen Ur Phencyclidine Scrn Ur Amphetamines Screen U Benzodiazepines Scrn U Oth Cocaine Metabols U Cannabinoids Screen Influenza Typ A,B (EIA) Assessment & Plan (1) Pneumonia Status: Acute Comment: chest x-ray consistent with by basilar infiltrate. On IV antibiotics. Nebulizer treatment. Steroids. BiPAP as needed. Culture and sensitivity. Swallowing evaluation to rule out aspiration (2) UTI (urinary tract infection) Status: Acute Comment: gram-negative rods in the urine. ID evaluation (3) Asthma exacerbation Status: Acute Comment: secondary to /pneumonia
[2017-07-07] MEDS: Potassium Chloride 10 mEq ER Tab PO SCH (12:50)
[2017-07-07] MEDS: Potassium Chloride 20 mEq/15 ml LIQ UD PO SCH ×2 (13:07→17:50)
--- NOTE | 2017-07-07 18:15 | CP.PCM.PN ---
Subjective - Date & Time of Evaluation Date of Evaluation: 07/07/17 Time of Evaluation: 13:40 - Subjective Subjective: clinically same Objective - Vital Signs/Intake and Output Vital Signs (last 24 hours): Temp Pulse Resp BP Pulse Ox 98.4 F 99 H 18 107/68 100 07/07/17 14:00 07/07/17 16:00 07/07/17 16:00 07/07/17 16:00 07/07/17 16:00 Intake and Output: 07/07/17 07/07/17 06:59 18:59 Intake Total 184 168 Output Total 100 50 Balance 84 118 - Medications Medications: Current Medications Acetaminophen (Tylenol 325mg Tab) 325 mg PO Q6 [facility] Last Admin: 07/07/17 17:30 Dose: 325 mg Albuterol/Ipratropium (Duoneb 3 Mg/0.5 Mg (3 Ml) Ud) 3 ml IH RQ6 [facility] Last Admin: 07/07/17 13:48 Dose: 3 ml Clopidogrel Bisulfate (Plavix) 75 mg PO DAILY [facility] Last Admin: 07/07/17 12:51 Dose: 75 mg Docusate Sodium (Colace) 100 mg PO DAILY [facility] Last Admin: 07/07/17 12:49 Dose: 100 mg Famotidine (Pepcid) 20 mg PO DAILY [facility] Last Admin: 07/07/17 12:50 Dose: 20 mg Heparin Sodium (Porcine) (Heparin) 5,000 units SC Q8 [facility] Last Admin: 07/07/17 13:48 Dose: 5,000 units Aztreonam 2 gm/ Sodium (Chloride) 100 mls @ 200 mls/hr IVPB Q12H [facility] Last Admin: 07/07/17 07:14 Dose: 200 mls/hr Metronidazole (Flagyl) 500 mg in 100 mls @ 100 mls/hr IVPB Q12H [facility] Last Admin: 07/07/17 17:32 Dose: 100 mls/hr Vancomycin HCl 1 gm/ Sodium (Chloride) 200 mls @ 166.7 mls/hr IVPB Q24H [facility] Last Admin: 07/07/17 08:06 Dose: 166.7 mls/hr Potassium Chloride (Potassium Chloride 20 Meq/100 Ml) 20 meq in 100 mls @ 50 mls/hr IVPB Q2 [facility] Stop: 07/07/17 21:59 Insulin Aspart (Novolog) 0 unit SC Q6 [facility] PRN Reason: Protocol Last Admin: 07/07/17 17:38 Dose: 3 unit Methylprednisolone (Solu-Medrol) 40 mg IVP Q8 [facility] Last Admin: 07/07/17 13:48 Dose: 40 mg Montelukast Sodium (Singulair) 10 mg PO DAILY [facility] Last Admin: 07/07/17 12:50 Dose: 10 mg Potassium Chloride (Klor-Con 10) 10 meq PO DAILY [facility] Last Admin: 07/07/17 12:50 Dose: 10 meq Potassium Chloride (Potassium Chloride Oral Soln) 40 meq PO Q6H [facility] Stop: 07/08/17 00:31 Last Admin: 07/07/17 17:50 Dose: 40 meq Rosuvastatin Calcium (Crestor) 10 mg PO HS [facility] Last Admin: 07/06/17 21:57 Dose: 10 mg Sennosides (Senokot Tab) 8.6 mg PO BID [facility] Last Admin: 07/07/17 17:50 Dose: 8.6 mg - Labs Labs: 07/07/17 06:21 07/07/17 06:22 PT 13.6 SECONDS (9.7-12.2) H 07/06/17 11:09 INR 1.2 07/06/17 11:09 APTT 24 SECONDS (21-34) 07/06/17 11:09 - Constitutional Appears: Well - Head Exam Head Exam: ATRAUMATIC, NORMAL INSPECTION, NORMOCEPHALIC - Eye Exam Eye Exam: EOMI, Normal appearance, PERRL Pupil Exam: NORMAL ACCOMODATION, PERRL - ENT Exam ENT Exam: Mucous Membranes Moist, Normal Exam - Neck Exam Neck Exam: Full ROM, Normal Inspection. absent: Lymphadenopathy - Respiratory Exam Respiratory Exam: Decreased Breath Sounds - Cardiovascular Exam Cardiovascular Exam: REGULAR RHYTHM, +S1, +S2 - GI/Abdominal Exam GI & Abdominal Exam: Soft, Diminished Bowel Sounds - Rectal Exam Rectal Exam: Deferred
[2017-07-08] MEDS: (Novolog) Insulin Aspart, Recombinant 100 u/ml 10 ml vial SC SCH ×4 (00:30→18:45)
[2017-07-08] MEDS: Potassium Chloride 20 mEq/15 ml LIQ UD PO SCH (00:54)
[2017-07-08] MEDS: Albuterol-Ipratrop 3 mg / 0.5 (3 ml) UD IH SCH ×4 (01:53→20:55)
[2017-07-08] MEDS: Aztreonam 2 GM in Sodium Chloride 0.9% 100 ML IVPB SCH ×2 (08:55→18:47)
[2017-07-08] MEDS: Potassium Chloride 10 mEq ER Tab PO SCH (09:10)
[2017-07-08] MEDS: Vancomycin 1 GM in Sodium Chloride 0.9% 200 ML IVPB SCH (09:27)
--- NOTE | 2017-07-08 13:53 | CP.PCM.PN ---
Subjective - Date & Time of Evaluation Date of Evaluation: 07/08/17 Time of Evaluation: 11:20 - Subjective Subjective: clinically same Objective - Vital Signs/Intake and Output Vital Signs (last 24 hours): Temp Pulse Resp BP Pulse Ox 97.5 F L 121 H 20 132/88 95 07/08/17 09:00 07/08/17 09:00 07/08/17 09:00 07/08/17 09:00 07/08/17 09:00 Intake and Output: 07/08/17 07/08/17 06:59 18:59 Output Total 550 Balance -550 - Medications Medications: Current Medications Acetaminophen (Tylenol 325mg Tab) 325 mg PO Q6 [facility] Last Admin: 07/08/17 00:48 Dose: Not Given Albuterol/Ipratropium (Duoneb 3 Mg/0.5 Mg (3 Ml) Ud) 3 ml IH RQ6 [facility] Last Admin: 07/08/17 07:40 Dose: 3 ml Clopidogrel Bisulfate (Plavix) 75 mg PO DAILY [facility] Last Admin: 07/08/17 09:10 Dose: 75 mg Docusate Sodium (Colace) 100 mg PO DAILY [facility] Last Admin: 07/08/17 09:10 Dose: 100 mg Famotidine (Pepcid) 20 mg PO DAILY [facility] Last Admin: 07/08/17 09:10 Dose: 20 mg Heparin Sodium (Porcine) (Heparin) 5,000 units SC Q8 [facility] Last Admin: 07/08/17 06:53 Dose: 5,000 units Aztreonam 2 gm/ Sodium (Chloride) 100 mls @ 200 mls/hr IVPB Q12H [facility] Last Admin: 07/08/17 08:55 Dose: 200 mls/hr Metronidazole (Flagyl) 500 mg in 100 mls @ 100 mls/hr IVPB Q12H [facility] Last Admin: 07/07/17 17:32 Dose: 100 mls/hr Vancomycin HCl 1 gm/ Sodium (Chloride) 200 mls @ 166.7 mls/hr IVPB Q24H [facility] Last Admin: 07/07/17 08:06 Dose: 166.7 mls/hr Insulin Aspart (Novolog) 0 unit SC Q6 [facility] PRN Reason: Protocol Last Admin: 07/08/17 06:53 Dose: 3 unit Methylprednisolone (Solu-Medrol) 40 mg IVP Q8 [facility] Last Admin: 07/07/17 22:48 Dose: 40 mg Montelukast Sodium (Singulair) 10 mg PO DAILY [facility] Last Admin: 07/08/17 09:10 Dose: 10 mg Potassium Chloride (Klor-Con 10) 10 meq PO DAILY [facility] Last Admin: 07/08/17 09:10 Dose: 10 meq Rosuvastatin Calcium (Crestor) 10 mg PO HS [facility] Last Admin: 07/07/17 23:45 Dose: 10 mg Sennosides (Senokot Tab) 8.6 mg PO BID [facility] Last Admin: 07/08/17 09:13 Dose: 8.6 mg - Labs Labs: 07/07/17 06:21 07/07/17 06:22 PT 13.6 SECONDS (9.7-12.2) H 07/06/17 11:09 INR 1.2 07/06/17 11:09 APTT 24 SECONDS (21-34) 07/06/17 11:09 - Constitutional Appears: Well - Head Exam Head Exam: ATRAUMATIC, NORMAL INSPECTION, NORMOCEPHALIC - Eye Exam Eye Exam: EOMI, Normal appearance, PERRL Pupil Exam: NORMAL ACCOMODATION, PERRL - ENT Exam ENT Exam: Mucous Membranes Moist, Normal Exam - Neck Exam Neck Exam: Full ROM, Normal Inspection. absent: Lymphadenopathy - Respiratory Exam Respiratory Exam: Decreased Breath Sounds - Cardiovascular Exam Cardiovascular Exam: REGULAR RHYTHM, +S1, +S2 - GI/Abdominal Exam GI & Abdominal Exam: Soft, Diminished Bowel Sounds - Rectal Exam Rectal Exam: Deferred
[2017-07-08] MEDS: MethylPREDNISolone 40 mg Vial IVP SCH ×2 (14:21→22:36)
--- NOTE | 2017-07-08 15:40 | CP.PCM.CON ---
History of Present Illness - History of Present Illness History of Present Illness: Patient BIBTemitope from OR for evaluation of worsening SOB over the last 2 days. Patient recently discharged from [facility] for pneumonia, asthma/copd exacerbation, currently on Ertapenem IV via PICC line. History limited due to clinical condition. family states weakness lower extremities worse - Medical History PMH: Arthritis (R TKR; BACK PAIN), Asthma, Bronchitis, COPD, HTN, Hypercholesterolemia, Pneumonia - [facility] Procedures ASSISTANCE WITH RESPIRATORY VENTILATION, 24-96 HRS, CPAP (04/25/17) INSERTION OF INFUSION DEV INTO SUP VENA CAVA, PERC APPROACH (04/25/17) INSPECTION OF LARYNX, ENDO (04/25/17) Review of Systems - Constitutional Constitutional: As Per HPI, Anorexia - EENT Eyes: absent: As Per HPI, Blind Spots, Blurred Vision, Change in Vision, Decreased Night Vision, Diplopia, Discharge, Dry Eye, Exophthalmos, Floaters, Irritation, Itchy Eyes, Loss of Peripheral Vision, Pain, Photophobia, Requires Corrective Lenses, Sees Flashes, Spots in Vision, Tunnel Vision, Other Visual Disturbances, Loss of Vision, Other Ears: absent: As Per HPI, Decreased Hearing, Ear Discharge, Ear Pain, Tinnitus, Abnormal Hearing, Disequilibrium, Dizziness, Other Nose/Mouth/Throat: absent: As Per HPI, Epistaxis, Nasal Congestion, Nasal Discharge, Nasal Obstruction, Nasal Trauma, Nose Pain, Post Nasal Drip, Sinus Pain, Sinus Pressure, Bleeding Gums, Change in Voice, Dental Pain, Dry Mouth, Dysphagia, Halitosis, Hoarsness, Lip Swelling, Mouth Lesions, Mouth Pain, Odynophagia, Sore Throat, Throat Swelling, Tongue Swelling, Facial Pain, Neck Pain, Neck Mass, Other - Breasts Breasts: absent: As Per HPI, Change in Shape, Mass, Pain, Nipple Discharge, Nipple Inversion, Skin Changes, Swelling, Other - Cardiovascular Cardiovascular: As Per HPI - Respiratory Respiratory: As Per HPI, Cough, Dyspnea. absent: Hemoptysis - Gastrointestinal Gastrointestinal: absent: As Per HPI, Abdominal Pain, Belching, Bloating, Change in Bowel Habits, Change in Stool Character, Coffee Ground Emesis, Constipation, Cramping, Diarrhea, Dyspepsia, Dysphagia, Early Satiety, Excessive Flatus, Fecal Incontinence, Heartburn, Hematemesis, Hematochezia, Loose Stools, Melena, Nausea, Odynophagia, Temesmus, Vomiting, Other - Genitourinary Genitourinary: absent: As Per HPI, Change in Urinary Stream, Difficulty Urinating, Dysuria, Flank Pain, Hematuria, Pyuria, Nocturia, Urinary Incontinence, Urinary Frequency, Urinary Hesitance, Urinary Urgency, Voiding Freq/Small Amts, Freq UTI, Hx Renal/Bladder Calculi, Hx /Renal Surgery, Bladder Distension, Other - Reproductive: Female Reproductive:Female: absent: As Per HPI, Amenorrhea, Amenorrhea/ Control, Currently Menstual, Cycle <21 Days, Cycle >35 Days, Cycle Variable, Menses 1-7 Days, Menses >/= 8 Days, Menses Variable, Cycle > 4 Weeks Between, No Menses for 6 Months, Heavy Menses, Light Menses, Normal Menses, Spotting Between Cycles , S/P Hysterectomy, Menopausal, Post Menopausal, Premenarche, Abnormal Vaginal Bleeding, Dysmenorrhea, Dyspareunia, Genital Lesions, Genital Pruritis, Pelvic Pain, Prolapse Symptoms, Sexual Dysfunction, Vaginal Discharge, Vaginal Dryness , Vaginal Odor, Vaginal Pruritis, Other - Menstruation Menstruation: absent: As Per HPI, Amenorrhea, Amenorrhea/ Control, Currently Menstual, Cycle <21 Days, Cycle >35 Days, Cycle Variable, Menses 1-7 Days, Menses >/= 8 Days, Menses Variable, Cycle > 4 Weeks Between, No Menses for 6 Months, Heavy Menses, Light Menses, Normal Menses, Spotting Between Cycles , S/P Hysterectomy, Menopausal, Post Menopausal, Premenarche, Abnormal Vaginal Bleeding, Dysmenorrhea, Other - Musculoskeletal Musculoskeletal: As Per HPI, Numbness, Radiating Pain into Limb, Stiffness - Integumentary Integumentary: absent: As Per HPI, Acne, Alopecia, Bleeding Lesions, Change in Hair, Change in Nails, Change in Pigmentation, Changing Lesions, Dry Skin, Erythema, Furuncle, Hirsutism, Lesions, New Lesions, Non-Healing Lesions, Photosensitivity, Pruritus, Rash, Skin Pain, Skin Ulcer, Sores, Striae, Swelling , Unusual Bruising, Wounds, Jaundice, Other - Neurological Neurological: As Per HPI, Abnormal Gait - Psychiatric Psychiatric: absent: As Per HPI, Abnormal Sleep Pattern, Anhedonia, Anxiety, Auditory Hallucinations, Behavioral Changes, Change in Appetite, Change in Libido, Confusion, Depression, Difficulty Concentrating, Hallucinations, Homicidal Ideation, Hopelessness, Irritability, Memory Loss, Mood Swings, Panic Attacks, Paranoia, Suicidal Ideation, Visual Hallucinations, Tactile Hallucinations, Other - Endocrine Endocrine: absent: As Per HPI, Change in Body Appearance, Change in Libido, Cold Intolorance, Deepening of Voice, Excessive Sweating, Fatigue, Flushing, Heat Intolorance, Increase in Ring/Shoe/Hat Size, Palpitations, Polydipsia, Polyphagia, Polyuria, Other - Hematologic/Lymphatic Hematologic: absent: As Per HPI, Easy Bleeding, Easy Bruising, Lymphadenopathy, Other Past Patient History - Infectious Disease Hx of Infectious Diseases: None - Past Medical History & Family History Past Medical History?: Yes - Past Social History Smoking Status: Never Smoked - CARDIAC Hx Hypercholesterolemia: Yes Hx Hypertension: Yes - PULMONARY Hx Asthma: Yes Hx Bronchitis: Yes Hx Chronic Obstructive Pulmonary Disease (COPD): Yes Hx Pneumonia: Yes - NEUROLOGICAL Hx Neurological Disorder: No - HEENT Hx HEENT Problems: No Other/Comment: WEARS GLASSES - RENAL Hx Chronic Kidney Disease: No - ENDOCRINE/METABOLIC Hx Endocrine Disorders: Yes - HEMATOLOGICAL/ONCOLOGICAL Hx Blood Disorders: Yes Hx Cancer: Yes (Esophagus) - INTEGUMENTARY Hx Dermatological Problems: No - MUSCULOSKELETAL/RHEUMATOLOGICAL Hx Arthritis: Yes (R TKR; BACK PAIN) - GASTROINTESTINAL Hx Gastrointestinal Disorders: Yes Hx Gastroesophageal Reflux: Yes Other/Comment: hx of esophageal CA - GENITOURINARY/GYNECOLOGICAL Hx Genitourinary Disorders: Yes - PSYCHIATRIC Hx Substance Use: No - SURGICAL HISTORY Hx Surgeries: Yes Hx Breast Biopsy: Yes Hx Hysterectomy: Yes Hx Orthopedic Surgery: Yes (RTKR) Other/Comment: ESOPHAGEAL SX - ANESTHESIA Hx Anesthesia: Yes Hx Anesthesia Reactions: No Hx Malignant Hyperthermia: No Meds Allergies/Adverse Reactions: Allergies Allergy/AdvReac Type Severity Reaction Status Date / Time aspirin Allergy Severe RASH Verified 05/30/17 11:42 ciprofloxacin [From Cipro] Allergy Severe RASH Verified 05/30/17 11:42 ciprofloxacin HCl Allergy Severe RASH Verified 05/30/17 11:42 [From Cipro] nitrofurantoin Allergy Severe RASH Verified 05/30/17 11:42 [From Macrobid] nitrofurantoin Allergy Severe RASH Verified 05/30/17 11:42 macrocrystalline [From Macrobid] Penicillins Allergy Severe RASH Verified 05/30/17 11:42 Sulfa (Sulfonamide Allergy Severe RASH Verified 05/30/17 11:42 Antibiotics) azithromycin Allergy ITCHING Verified 05/30/17 11:42 - Medications Medications: Current Medications Acetaminophen (Tylenol 325mg Tab) 325 mg PO Q6 [facility] Last Admin: 07/08/17 12:50 Dose: 325 mg Albuterol/Ipratropium (Duoneb 3 Mg/0.5 Mg (3 Ml) Ud) 3 ml IH RQ6 [facility] Last Admin: 07/08/17 14:15 Dose: 3 ml Clopidogrel Bisulfate (Plavix) 75 mg PO DAILY [facility] Last Admin: 07/08/17 09:10 Dose: 75 mg Docusate Sodium (Colace) 100 mg PO DAILY [facility] Last Admin: 07/08/17 09:10 Dose: 100 mg Famotidine (Pepcid) 20 mg PO DAILY [facility] Last Admin: 07/08/17 09:10 Dose: 20 mg Heparin Sodium (Porcine) (Heparin) 5,000 units SC Q8 [facility] Last Admin: 07/08/17 14:21 Dose: 5,000 units Aztreonam 2 gm/ Sodium (Chloride) 100 mls @ 200 mls/hr IVPB Q12H [facility] Last Admin: 07/08/17 08:55 Dose: 200 mls/hr Metronidazole (Flagyl) 500 mg in 100 mls @ 100 mls/hr IVPB Q12H [facility] Last Admin: 07/07/17 17:32 Dose: 100 mls/hr Vancomycin HCl 1 gm/ Sodium (Chloride) 200 mls @ 166.7 mls/hr IVPB Q24H [facility] Last Admin: 07/08/17 09:27 Dose: 166.7 mls/hr Insulin Aspart (Novolog) 0 unit SC Q6 [facility] PRN Reason: Protocol Last Admin: 07/08/17 12:57 Dose: 3 unit Methylprednisolone (Solu-Medrol) 40 mg IVP Q8 [facility] Last Admin: 07/08/17 14:21 Dose: 40 mg Montelukast Sodium (Singulair) 10 mg PO DAILY [facility] Last Admin: 07/08/17 09:10 Dose: 10 mg Potassium Chloride (Klor-Con 10) 10 meq PO DAILY [facility] Last Admin: 07/08/17 09:10 Dose: 10 meq Rosuvastatin Calcium (Crestor) 10 mg PO [facility] Last Admin: 07/07/17 23:45 Dose: 10 mg Sennosides (Senokot Tab) 8.6 mg PO BID [facility] Last Admin: 07/08/17 09:13 Dose: 8.6 mg Physical Exam - Constitutional Appears: Non-toxic, Chronically Ill - Head Exam Head Exam: ATRAUMATIC, NORMAL INSPECTION, NORMOCEPHALIC - Eye Exam Eye Exam: PERRL. absent: Scleral icterus Pupil Exam: NORMAL ACCOMODATION - ENT Exam ENT Exam: Mucous Membranes Dry - Neck Exam Neck exam: Negative for: Lymphadenopathy - Respiratory Exam Respiratory Exam: Decreased Breath Sounds, Prolonged Expiratory Phase, Rhonchi - Cardiovascular Exam Cardiovascular Exam: REGULAR RHYTHM, +S1, +S2 - GI/Abdominal Exam GI & Abdominal Exam: Diminished Bowel Sounds. absent: Tenderness - Exam Exam: NORMAL INSPECTION - Extremities Exam Extremities exam: Positive for: pedal edema, pedal pulses present. Negative for : calf tenderness, tenderness - Back Exam Back exam: absent: CVA tenderness (L), CVA tenderness (R), paraspinal tenderness - Neurological Exam Neurological exam: Alert, CN II-XII Intact, Motor Sensory Deficit, Oriented x3 - Psychiatric Exam Psychiatric exam: Anxious, Normal Mood - Skin Skin Exam: Dry, Intact Results - Vital Signs Recent Vital Signs: Last Vital Signs Temp 97.5 F L 07/08/17 09:00 Pulse 121 H 07/08/17 09:00 Resp 20 07/08/17 09:00 BP 132/88 07/08/17 09:00 Pulse Ox 95 07/08/17 09:00 - Labs Result Diagrams: 07/07/17 06:21 07/07/17 06:22 Labs: Laboratory Results - last 24 hr 07/07/17 07/08/17 07/08/17 17:26 06:19 11:15 POC Glucose (mg/dL) 245 H 222 H 221 H Assessment & Plan (1) Acute urinary tract infection Status: Acute (2) COPD exacerbation Status: Acute (3) Dehydration symptoms Status: Acute (4) Dyspnea Status: Acute (5) Pneumonia Status: Acute (6) Weakness Status: Acute - Assessment and Plan (Free Text) Assessment: sinusitis/ mastoiditis exac copd pneumonia uti severe leg weakness will need neuo eval await cultures cont rx
[2017-07-08] MEDS: guaiFENesin DM 100 mg-10 mg/5 ml UD PO PRN (16:20)
[2017-07-08] MEDS: Metoprolol Succinate 12.5 mg XL PO SCH ×2 (16:21→22:35)
[2017-07-08] MEDS: metroNIDAZOLE IV 500 mg/100 ml 500 MG/100 ML BAG IVPB SCH (17:46)
--- NOTE | 2017-07-08 19:07 | CP.PCM.PN ---
Subjective - Date & Time of Evaluation Date of Evaluation: 07/08/17 Time of Evaluation: 16:30 - Subjective Subjective: patient seen and examined Transferred to floor remains dyspneic and placed on BiPAP Still complaining of cough but unable to bring up phlegm Afebrile No chest pain Being treated for pneumonia and urinary tract infection\ On IV steroids Followup ABG and chest x-ray Followup chemistry and potassium level Objective - Vital Signs/Intake and Output Vital Signs (last 24 hours): Temp Pulse Resp BP Pulse Ox 97.9 F 116 H 20 143/73 98 07/08/17 16:00 07/08/17 16:00 07/08/17 16:00 07/08/17 16:00 07/08/17 16:00 Intake and Output: 07/08/17 07/09/17 18:59 06:59 Intake Total 660 Output Total 500 Balance 160 - Medications Medications: Current Medications Acetaminophen (Tylenol 325mg Tab) 325 mg PO Q6 [facility] Last Admin: 07/08/17 18:45 Dose: 325 mg Albuterol/Ipratropium (Duoneb 3 Mg/0.5 Mg (3 Ml) Ud) 3 ml IH RQ6 [facility] Last Admin: 07/08/17 14:15 Dose: 3 ml Clopidogrel Bisulfate (Plavix) 75 mg PO DAILY [facility] Last Admin: 07/08/17 09:10 Dose: 75 mg Docusate Sodium (Colace) 100 mg PO DAILY [facility] Last Admin: 07/08/17 09:10 Dose: 100 mg Famotidine (Pepcid) 20 mg PO DAILY [facility] Last Admin: 07/08/17 09:10 Dose: 20 mg Guaifenesin/Dextromethorphan (Robitussin Dm) 5 ml PO Q4H PRN PRN Reason: Cough Last Admin: 07/08/17 16:20 Dose: 5 ml Heparin Sodium (Porcine) (Heparin) 5,000 units SC Q8 [facility] Last Admin: 07/08/17 14:21 Dose: 5,000 units Aztreonam 2 gm/ Sodium (Chloride) 100 mls @ 200 mls/hr IVPB Q12H [facility] Last Admin: 07/08/17 18:47 Dose: 200 mls/hr Metronidazole (Flagyl) 500 mg in 100 mls @ 100 mls/hr IVPB Q12H [facility] Last Admin: 07/08/17 17:46 Dose: 100 mls/hr Vancomycin HCl 1 gm/ Sodium (Chloride) 200 mls @ 166.7 mls/hr IVPB Q24H [facility] Last Admin: 07/08/17 09:27 Dose: 166.7 mls/hr Potassium Chloride (Potassium Chloride 20 Meq/100 Ml) 20 meq in 100 mls @ 50 mls/hr IVPB Q2 [facility] Stop: 07/09/17 03:59 Insulin Aspart (Novolog) 0 unit SC Q6 [facility] PRN Reason: Protocol Last Admin: 07/08/17 18:45 Dose: 3 unit Methylprednisolone (Solu-Medrol) 40 mg IVP Q8 [facility] Last Admin: 07/08/17 14:21 Dose: 40 mg Metoprolol Succinate (Toprol Xl) 12.5 mg PO Q12 [facility] Last Admin: 07/08/17 16:21 Dose: 12.5 mg Montelukast Sodium (Singulair) 10 mg PO DAILY [facility] Last Admin: 07/08/17 09:10 Dose: 10 mg Potassium Chloride (Klor-Con 10) 10 meq PO DAILY [facility] Last Admin: 07/08/17 09:10 Dose: 10 meq Rosuvastatin Calcium (Crestor) 10 mg PO HS [facility] Last Admin: 07/07/17 23:45 Dose: 10 mg Sennosides (Senokot Tab) 8.6 mg PO BID [facility] Last Admin: 07/08/17 18:45 Dose: 8.6 mg - Labs Labs: 07/07/17 06:21 07/07/17 06:22 PT 13.6 SECONDS (9.7-12.2) H 07/06/17 11:09 INR 1.2 07/06/17 11:09 APTT 24 SECONDS (21-34) 07/06/17 11:09 Assessment and Plan (1) Pneumonia Status: Acute (2) UTI (urinary tract infection) Status: Acute (3) Asthma exacerbation Status: Acute
[2017-07-08 20:32] LABS: BLOOD UREA NITROGEN 27 mg/dL (7-17); CALCIUM 8.9 mg/dl (8.6-10.4); GFR AFRICAN-AMERICAN > 60; GFR NON-AFRICAN AMERICAN > 60
--- NOTE | 2017-07-08 22:55 | CP.PCM.PN ---
Subjective - Date & Time of Evaluation Date of Evaluation: 07/08/17 Time of Evaluation: 16:00 - Subjective Subjective: Patient seen and evaluated Tachycardia started on Metoprolol 12.5 po bid Physical Examination - Head Exam Head Exam: ATRAUMATIC - Eye Exam Eye Exam: EOMI, PERRL Pupil Exam: NORMAL ACCOMODATION - ENT Exam ENT Exam: Mucous Membranes Moist - Neck Exam Neck Exam: Full ROM, Normal Inspection - Respiratory Exam Respiratory Exam: Clear to Ausculation Bilateral, NORMAL BREATHING PATTERN - Cardiovascular Exam Cardiovascular Exam: REGULAR RHYTHM, +S1, +S2 - GI/Abdominal Exam GI & Abdominal Exam: Soft, Normal Bowel Sounds - Extremities Exam Extremities Exam: Full ROM, Normal Capillary Refill - Neurological Exam Neurological Exam: Alert, Awake, CN II-XII Intact - Psychiatric Exam Psychiatric exam: Normal Mood - Skin Skin Exam: Dry, Warm Objective - Vital Signs/Intake and Output Vital Signs (last 24 hours): Temp Pulse Resp BP Pulse Ox 97.9 F 120 H 20 140/84 98 07/08/17 16:00 07/08/17 22:40 07/08/17 16:00 07/08/17 22:40 07/08/17 16:00 Intake and Output: 07/08/17 07/09/17 18:59 06:59 Intake Total 660 Output Total 500 Balance 160 - Medications Medications: Current Medications Acetaminophen (Tylenol 325mg Tab) 325 mg PO Q6 [facility] Last Admin: 07/08/17 18:45 Dose: 325 mg Albuterol/Ipratropium (Duoneb 3 Mg/0.5 Mg (3 Ml) Ud) 3 ml IH RQ6 [facility] Last Admin: 07/08/17 20:55 Dose: 3 ml Clopidogrel Bisulfate (Plavix) 75 mg PO DAILY [facility] Last Admin: 07/08/17 09:10 Dose: 75 mg Docusate Sodium (Colace) 100 mg PO DAILY [facility] Last Admin: 07/08/17 09:10 Dose: 100 mg Famotidine (Pepcid) 20 mg PO DAILY [facility] Last Admin: 07/08/17 09:10 Dose: 20 mg Guaifenesin/Dextromethorphan (Robitussin Dm) 5 ml PO Q4H PRN PRN Reason: Cough Last Admin: 07/08/17 16:20 Dose: 5 ml Heparin Sodium (Porcine) (Heparin) 5,000 units SC Q8 [facility] Last Admin: 07/08/17 22:36 Dose: 5,000 units Aztreonam 2 gm/ Sodium (Chloride) 100 mls @ 200 mls/hr IVPB Q12H [facility] Last Admin: 07/08/17 18:47 Dose: 200 mls/hr Metronidazole (Flagyl) 500 mg in 100 mls @ 100 mls/hr IVPB Q12H [facility] Last Admin: 07/08/17 17:46 Dose: 100 mls/hr Vancomycin HCl 1 gm/ Sodium (Chloride) 200 mls @ 166.7 mls/hr IVPB Q24H [facility] Last Admin: 07/08/17 09:27 Dose: 166.7 mls/hr Potassium Chloride (Potassium Chloride 20 Meq/100 Ml) 20 meq in 100 mls @ 50 mls/hr IVPB Q2 [facility] Stop: 07/09/17 03:59 Last Admin: 07/08/17 22:40 Dose: 50 mls/hr Insulin Aspart (Novolog) 0 unit SC Q6 [facility] PRN Reason: Protocol Last Admin: 07/08/17 18:45 Dose: 3 unit Methylprednisolone (Solu-Medrol) 40 mg IVP Q8 [facility] Last Admin: 07/08/17 22:36 Dose: 40 mg Metoprolol Succinate (Toprol Xl) 12.5 mg PO Q12 [facility] Last Admin: 07/08/17 22:35 Dose: 12.5 mg Montelukast Sodium (Singulair) 10 mg PO DAILY [facility] Last Admin: 07/08/17 09:10 Dose: 10 mg Potassium Chloride (Klor-Con 10) 10 meq PO DAILY [facility] Last Admin: 07/08/17 09:10 Dose: 10 meq Rosuvastatin Calcium (Crestor) 10 mg PO HS [facility] Last Admin: 07/08/17 22:36 Dose: 10 mg Sennosides (Senokot Tab) 8.6 mg PO BID [facility] Last Admin: 07/08/17 18:45 Dose: 8.6 mg - Labs Labs: 07/07/17 06:21 07/08/17 20:15 PT 13.6 SECONDS (9.7-12.2) H 07/06/17 11:09 INR 1.2 07/06/17 11:09 APTT 24 SECONDS (21-34) 07/06/17 11:09 Assessment and Plan - Assessment and Plan (Free Text) Assessment: 1. Dyspnea Pneumonia Vs. Diastolic CHF Check Pro BNP Lasix PRN ECHO: Normal EF 2. HTN controlled 3. Pneumonia Medical management
[2017-07-09] MEDS: (Novolog) Insulin Aspart, Recombinant 100 u/ml 10 ml vial SC SCH ×4 (00:24→18:19)
[2017-07-09] MEDS: Albuterol-Ipratrop 3 mg / 0.5 (3 ml) UD IH SCH ×5 (02:08→20:14)
[2017-07-09] MEDS: guaiFENesin DM 100 mg-10 mg/5 ml UD PO PRN ×2 (04:57→13:23)
[2017-07-09] MEDS: MethylPREDNISolone 40 mg Vial IVP SCH ×3 (05:30→21:34)
[2017-07-09] MEDS: metroNIDAZOLE IV 500 mg/100 ml 500 MG/100 ML BAG IVPB SCH ×2 (05:31→18:19)
[2017-07-09] MEDS: Aztreonam 2 GM in Sodium Chloride 0.9% 100 ML IVPB SCH ×2 (06:45→17:17)
[2017-07-09 07:06] LABS: ALBUMIN 2.8 g/dL (3.5-5.0); ALT/SGPT 37 U/L (9-52); AST/SGOT 31 U/L (14-36); BLOOD UREA NITROGEN 26 mg/dL (7-17); CALCIUM 9.1 mg/dl (8.6-10.4); GFR AFRICAN-AMERICAN > 60; GFR NON-AFRICAN AMERICAN > 60; MAGNESIUM 1.8 mg/dL (1.6-2.3)
[2017-07-09] MEDS: Vancomycin 1 GM in Sodium Chloride 0.9% 200 ML IVPB SCH (08:30)
[2017-07-09] MEDS: Potassium Chloride 10 mEq ER Tab PO SCH (09:45)
[2017-07-09] MEDS: Metoprolol Succinate 12.5 mg XL PO SCH ×2 (09:45→21:34)
[2017-07-09 12:22] LABS: BASO % 0.1 % (0.0-2.0); LYMPH # 0.4 K/uL (1.0-4.3); LYMPH % 2.1 % (20.0-40.0); MEAN CORPUSCULAR HEMOGLOBIN 32.8 pg (27.0-31.0); MEAN CORPUSCULAR HGB CONC 32.8 g/dL (33.0-37.0); MEAN PLATELET VOLUME 7.7 fL (7.2-11.7); MONO # 0.7 K/uL (0.0-0.8); MONO % 4.1 % (0.0-10.0); NEUT # 16.1 K/uL (1.8-7.0); NEUT % 93.7 % (50.0-75.0); NRBC % 0.7 % (0.0-2.0); PLATELET COUNT 432 K/uL (130-400); RBC 2.75 Mil/uL (3.80-5.20); RED CELL DISTRIBUTION WIDTH 17.5 % (11.5-14.5)
[2017-07-09 12:27] LABS: WHITE BLOOD COUNT 17.2 K/uL (4.8-10.8)
--- NOTE | 2017-07-09 12:28 | CT ---
PROCEDURE: CT HEAD WITHOUT CONTRAST. HISTORY: AMS COMPARISON: None available. TECHNIQUE: Axial computed tomography images were obtained through the head/brain without intravenous contrast. Radiation dose: Total exam DLP = 1010.46 mGy-cm. This CT exam was performed using one or more of the following dose reduction techniques: Automated exposure control, adjustment of the mA and/or kV according to patient size, and/or use of iterative reconstruction technique. FINDINGS: HEMORRHAGE: No intracranial hemorrhage. BRAIN: There is a rounded extra-axial left frontal mass 1.5 cm in diameter, likely a meningioma. No other intracranial mass is identified. This should be further evaluated gadolinium enhanced magnetic resonance imaging. Mild age-appropriate atrophy. Mild periventricular white matter lucency with patchy deep and subcortical white matter lucency, consistent with chronic microvascular ischemic change. VENTRICLES: Unremarkable. No hydrocephalus. CALVARIUM: Unremarkable. PARANASAL SINUSES: Chronic ethmoid, sphenoid and left maxillary sinusitis. Left frontal osteoma noted. Left mastoid effusion common nonspecific. Small amount of fluid/soft tissue density in left middle ear cavity. Rule out mastoiditis/otitis media. MASTOID AIR CELLS: As above OTHER FINDINGS: None. IMPRESSION: No evidence of acute infarct. No intracranial hemorrhage. 1.5 cm left frontal extra-axial mass, most likely meningioma. Evaluation with gadolinium enhanced magnetic resonance imaging is advised on a nonemergent basis. Chronic paranasal sinusitis. Left mastoid effusion and fluid/soft tissue density in left middle ear cavity. Please correlate clinically for mastoiditis/ otitis media.
--- NOTE | 2017-07-09 12:32 | CARD ---
APPROVED REPORT EKG Measurement Heart [id number] <Conclusion> Sinus tachycardia Otherwise normal ECG
[2017-07-09 13:05] LABS: ANISOCYTOSIS SLIGHT; BANDS 1 % (0-2); LYMPHOCYTE 1 % (20-40); MONOCYTE 5 % (0-10); NEUTROPHIL 92 % (50-75); NUCLEATED RED BLOOD CELL 1 % (0-0); PLATELET ESTIMATE SLIGHTLY INCREASED (NORMAL); REACTIVE LYMPHOCYTES 1 % (0-0); TOTAL CELLS COUNTED 100
[2017-07-09 13:06] LABS: BURR CELLS SLIGHT; POIKILOCYTOSIS SLIGHT
--- NOTE | 2017-07-09 14:14 | CP.PCM.PN ---
Subjective - Date & Time of Evaluation Date of Evaluation: 07/09/17 Time of Evaluation: 11:15 - Subjective Subjective: Patient was seen and evaluated. She continues to complain of cough but is unable to bring up phlegm. She also complains of dizziness as well as left upper extremity weakness. She denies any chest pain, headache, nausea, or vomiting. Patient seemed confused and had some trouble following 2-step commands. Neuro consulted for AMS this morning. Patient also continues to have elevated heart rate, and started on Metoprolol yesterday. Assessment and Plan: Patient is a 81 y.o F with PMH of asthma, bronchitis, HTN, HLD, GERD, urinary incontinence who presented with shortness of breath requiring BiPAP and cough, most likely due to pneumonia. SOB: -BiPAP as needed -swallow eval to rule out aspiration -Continue Duoneb treatments, Solu-medrol and Singulair -On IV abx -Robitussin for cough as needed -Most recent lactate on 07/06 = 2.1 -CXR on 07/07 showed small opacities more prominent at the lower lobe. Hyperinflation of the lungs consistent with the patient's history of COPD. UTI: -gram negative rods in urine -Azactam AMS: -Head CT showed no evidence of acute infarct. No ICH. 1.5 cm left frontal extra- axial mass, most likely meningioma. Chronic paranasal sinusitis. Left mastoid effusion and fluid/soft tissue density in left middle ear cavity. -Neuro following Objective - Vital Signs/Intake and Output Vital Signs (last 24 hours): Temp Pulse Resp BP Pulse Ox 98 F 110 H 20 153/90 H 100 07/09/17 07:40 07/09/17 11:56 07/09/17 07:40 07/09/17 07:40 07/09/17 11:56 - Medications Medications: Current Medications Acetaminophen (Tylenol 325mg Tab) 325 mg PO Q6 [facility] Last Admin: 07/09/17 05:31 Dose: 325 mg Albuterol/Ipratropium (Duoneb 3 Mg/0.5 Mg (3 Ml) Ud) 3 ml IH RQ6 [facility] Last Admin: 07/09/17 07:52 Dose: 3 ml Clopidogrel Bisulfate (Plavix) 75 mg PO DAILY [facility] Last Admin: 07/09/17 09:45 Dose: 75 mg Docusate Sodium (Colace) 100 mg PO DAILY [facility] Last Admin: 07/09/17 09:45 Dose: 100 mg Famotidine (Pepcid) 20 mg PO DAILY [facility] Last Admin: 07/09/17 09:45 Dose: 20 mg Guaifenesin/Dextromethorphan (Robitussin Dm) 5 ml PO Q4H PRN PRN Reason: Cough Last Admin: 07/09/17 13:23 Dose: 5 ml Heparin Sodium (Porcine) (Heparin) 5,000 units SC Q8 [facility] Last Admin: 07/09/17 13:25 Dose: 5,000 units Aztreonam 2 gm/ Sodium (Chloride) 100 mls @ 200 mls/hr IVPB Q12H [facility] Last Admin: 07/09/17 06:45 Dose: 200 mls/hr Metronidazole (Flagyl) 500 mg in 100 mls @ 100 mls/hr IVPB Q12H [facility] Last Admin: 07/09/17 05:31 Dose: 100 mls/hr Vancomycin HCl 1 gm/ Sodium (Chloride) 200 mls @ 166.7 mls/hr IVPB Q24H [facility] Last Admin: 07/08/17 09:27 Dose: 166.7 mls/hr Insulin Aspart (Novolog) 0 unit SC Q6 [facility] PRN Reason: Protocol Last Admin: 07/09/17 13:00 Dose: 3 unit Methylprednisolone (Solu-Medrol) 40 mg IVP Q8 [facility] Last Admin: 07/09/17 13:35 Dose: 40 mg Metoprolol Succinate (Toprol Xl) 12.5 mg PO Q12 [facility] Last Admin: 07/09/17 09:45 Dose: 12.5 mg Montelukast Sodium (Singulair) 10 mg PO DAILY [facility] Last Admin: 07/09/17 09:45 Dose: 10 mg Potassium Chloride (Klor-Con 10) 10 meq PO DAILY [facility] Last Admin: 07/09/17 09:45 Dose: 10 meq Rosuvastatin Calcium (Crestor) 10 mg PO HS [facility] Last Admin: 07/08/17 22:36 Dose: 10 mg Sennosides (Senokot Tab) 8.6 mg PO BID [facility] Last Admin: 07/09/17 09:45 Dose: 8.6 mg - Labs Labs: 07/09/17 11:49 02/19/18 06:34 PT 13.6 SECONDS (9.7-12.2) H 07/06/17 11:09 INR 1.2 07/06/17 11:09 APTT 24 SECONDS (21-34) 07/06/17 11:09 Assessment and Plan (1) Pneumonia Status: Acute (2) UTI (urinary tract infection) Status: Acute (3) Asthma exacerbation Status: Acute
--- NOTE | 2017-07-09 14:28 | CP.PCM.PN ---
Subjective - Date & Time of Evaluation Date of Evaluation: 07/09/17 Time of Evaluation: 08:00 - Subjective Subjective: WEAK/ CONFUSED SOB ON BIPAP Objective - Vital Signs/Intake and Output Vital Signs (last 24 hours): Temp Pulse Resp BP Pulse Ox 98 F 110 H 20 153/90 H 100 07/09/17 07:40 07/09/17 11:56 07/09/17 07:40 07/09/17 07:40 07/09/17 11:56 - Medications Medications: Current Medications Acetaminophen (Tylenol 325mg Tab) 325 mg PO Q6 [facility] Last Admin: 07/09/17 05:31 Dose: 325 mg Albuterol/Ipratropium (Duoneb 3 Mg/0.5 Mg (3 Ml) Ud) 3 ml IH RQ6 [facility] Last Admin: 07/09/17 07:52 Dose: 3 ml Clopidogrel Bisulfate (Plavix) 75 mg PO DAILY [facility] Last Admin: 07/09/17 09:45 Dose: 75 mg Docusate Sodium (Colace) 100 mg PO DAILY [facility] Last Admin: 07/09/17 09:45 Dose: 100 mg Famotidine (Pepcid) 20 mg PO DAILY [facility] Last Admin: 07/09/17 09:45 Dose: 20 mg Guaifenesin/Dextromethorphan (Robitussin Dm) 5 ml PO Q4H PRN PRN Reason: Cough Last Admin: 07/09/17 13:23 Dose: 5 ml Heparin Sodium (Porcine) (Heparin) 5,000 units SC Q8 [facility] Last Admin: 07/09/17 13:25 Dose: 5,000 units Aztreonam 2 gm/ Sodium (Chloride) 100 mls @ 200 mls/hr IVPB Q12H [facility] Last Admin: 07/09/17 06:45 Dose: 200 mls/hr Metronidazole (Flagyl) 500 mg in 100 mls @ 100 mls/hr IVPB Q12H [facility] Last Admin: 07/09/17 05:31 Dose: 100 mls/hr Vancomycin HCl 1 gm/ Sodium (Chloride) 200 mls @ 166.7 mls/hr IVPB Q24H [facility] Last Admin: 07/09/17 08:30 Dose: 166.7 mls/hr Insulin Aspart (Novolog) 0 unit SC Q6 [facility] PRN Reason: Protocol Last Admin: 07/09/17 13:00 Dose: 3 unit Methylprednisolone (Solu-Medrol) 40 mg IVP Q8 [facility] Last Admin: 07/09/17 13:35 Dose: 40 mg Metoprolol Succinate (Toprol Xl) 12.5 mg PO Q12 [facility] Last Admin: 07/09/17 09:45 Dose: 12.5 mg Montelukast Sodium (Singulair) 10 mg PO DAILY [facility] Last Admin: 07/09/17 09:45 Dose: 10 mg Potassium Chloride (Klor-Con 10) 10 meq PO DAILY [facility] Last Admin: 07/09/17 09:45 Dose: 10 meq Rosuvastatin Calcium (Crestor) 10 mg PO HS [facility] Last Admin: 07/08/17 22:36 Dose: 10 mg Sennosides (Senokot Tab) 8.6 mg PO BID [facility] Last Admin: 07/09/17 09:45 Dose: 8.6 mg - Labs Labs: 07/09/17 11:49 07/09/17 06:34 PT 13.6 SECONDS (9.7-12.2) H 07/06/17 11:09 INR 1.2 07/06/17 11:09 APTT 24 SECONDS (21-34) 07/06/17 11:09 - Constitutional Appears: Non-toxic, Confused, Chronically Ill - Head Exam Head Exam: NORMOCEPHALIC - Eye Exam Eye Exam: PERRL - ENT Exam ENT Exam: Mucous Membranes Dry - Neck Exam Neck Exam: absent: Lymphadenopathy - Respiratory Exam Respiratory Exam: Decreased Breath Sounds - Cardiovascular Exam Cardiovascular Exam: REGULAR RHYTHM - GI/Abdominal Exam GI & Abdominal Exam: Distended, Soft - Rectal Exam Rectal Exam: Deferred - Exam Exam: NORMAL INSPECTION - Extremities Exam Extremities Exam: absent: Pedal Edema - Back Exam Back Exam: absent: CVA tenderness (L), CVA tenderness (R) - Neurological Exam Neurological Exam: Altered Assessment and Plan (1) Acute urinary tract infection Status: Acute (2) COPD exacerbation Status: Acute (3) Dehydration symptoms Status: Acute (4) Dyspnea Status: Acute (5) Pneumonia Status: Acute (6) Weakness Status: Acute
[2017-07-09 14:49] LABS: URINE BACTERIA OCC (<OCC); URINE BILIRUBIN NEGATIVE (NEGATIVE); URINE BLOOD 1+ (NEGATIVE); URINE CLARITY Clear (Clear); URINE COLOR Yellow (YELLOW); URINE GLUCOSE (UA) NORMAL (Normal); URINE LEUKOCYTE ESTERASE NEG Leu/uL (Negative); URINE NITRATE NEGATIVE (NEGATIVE); URINE PROTEIN 1+ mg/dL (NEGATIVE); URINE UROBILINOGEN NORMAL mg/dL (0.2-1.0)
--- NOTE | 2017-07-09 17:30 | CP.PCM.PN ---
Subjective - Date & Time of Evaluation Date of Evaluation: 07/02/17 Time of Evaluation: 11:20 - Subjective Subjective: clinically same Objective - Vital Signs/Intake and Output Vital Signs (last 24 hours): Temp Pulse Resp BP Pulse Ox 98.1 F 115 H 20 157/91 H 95 07/09/17 16:00 07/09/17 16:00 07/09/17 16:00 07/09/17 16:00 07/09/17 16:00 Intake and Output: 07/09/17 07/09/17 06:59 18:59 Intake Total 250 Output Total 1300 Balance -1050 - Medications Medications: Current Medications Acetaminophen (Tylenol 325mg Tab) 325 mg PO Q6 [facility] Last Admin: 07/09/17 12:00 Dose: 325 mg Albuterol/Ipratropium (Duoneb 3 Mg/0.5 Mg (3 Ml) Ud) 3 ml IH RQ6 [facility] Last Admin: 07/09/17 14:43 Dose: 3 ml Clopidogrel Bisulfate (Plavix) 75 mg PO DAILY [facility] Last Admin: 07/09/17 09:45 Dose: 75 mg Docusate Sodium (Colace) 100 mg PO DAILY [facility] Last Admin: 07/09/17 09:45 Dose: 100 mg Famotidine (Pepcid) 20 mg PO DAILY [facility] Last Admin: 07/09/17 09:45 Dose: 20 mg Guaifenesin/Dextromethorphan (Robitussin Dm) 5 ml PO Q4H PRN PRN Reason: Cough Last Admin: 07/09/17 13:23 Dose: 5 ml Heparin Sodium (Porcine) (Heparin) 5,000 units SC Q8 [facility] Last Admin: 07/09/17 13:25 Dose: 5,000 units Aztreonam 2 gm/ Sodium (Chloride) 100 mls @ 200 mls/hr IVPB Q12H [facility] Last Admin: 07/09/17 06:45 Dose: 200 mls/hr Metronidazole (Flagyl) 500 mg in 100 mls @ 100 mls/hr IVPB Q12H [facility] Last Admin: 07/09/17 05:31 Dose: 100 mls/hr Vancomycin HCl 1 gm/ Sodium (Chloride) 200 mls @ 166.7 mls/hr IVPB Q24H [facility] Last Admin: 07/09/17 08:30 Dose: 166.7 mls/hr Insulin Aspart (Novolog) 0 unit SC Q6 [facility] PRN Reason: Protocol Last Admin: 07/09/17 13:00 Dose: 3 unit Methylprednisolone (Solu-Medrol) 40 mg IVP Q8 [facility] Last Admin: 07/09/17 13:35 Dose: 40 mg Metoprolol Succinate (Toprol Xl) 12.5 mg PO Q12 [facility] Last Admin: 07/09/17 09:45 Dose: 12.5 mg Montelukast Sodium (Singulair) 10 mg PO DAILY [facility] Last Admin: 07/09/17 09:45 Dose: 10 mg Potassium Chloride (Klor-Con 10) 10 meq PO DAILY [facility] Last Admin: 07/09/17 09:45 Dose: 10 meq Rosuvastatin Calcium (Crestor) 10 mg PO HS [facility] Last Admin: 07/08/17 22:36 Dose: 10 mg Sennosides (Senokot Tab) 8.6 mg PO BID [facility] Last Admin: 07/09/17 09:45 Dose: 8.6 mg - Labs Labs: 07/09/17 11:49 07/09/17 06:34 PT 13.6 SECONDS (9.7-12.2) H 07/06/17 11:09 INR 1.2 07/06/17 11:09 APTT 24 SECONDS (21-34) 07/06/17 11:09 - Constitutional Appears: Well - Head Exam Head Exam: ATRAUMATIC, NORMAL INSPECTION, NORMOCEPHALIC - Eye Exam Eye Exam: EOMI, Normal appearance, PERRL Pupil Exam: NORMAL ACCOMODATION, PERRL - ENT Exam ENT Exam: Mucous Membranes Moist, Normal Exam - Neck Exam Neck Exam: Full ROM, Normal Inspection. absent: Lymphadenopathy - Respiratory Exam Respiratory Exam: Decreased Breath Sounds - Cardiovascular Exam Cardiovascular Exam: REGULAR RHYTHM, +S1, +S2 - GI/Abdominal Exam GI & Abdominal Exam: Soft, Diminished Bowel Sounds - Rectal Exam Rectal Exam: Deferred
--- NOTE | 2017-07-09 23:03 | CP.PCM.PN ---
Subjective - Date & Time of Evaluation Date of Evaluation: 07/09/17 Time of Evaluation: 15:30 - Subjective Subjective: Patient seen and evaluated No cardiac events noted Physical Examination - Head Exam Head Exam: ATRAUMATIC - Eye Exam Eye Exam: EOMI, PERRL Pupil Exam: NORMAL ACCOMODATION - ENT Exam ENT Exam: Mucous Membranes Moist - Neck Exam Neck Exam: Full ROM, Normal Inspection - Respiratory Exam Respiratory Exam: Clear to Ausculation Bilateral, NORMAL BREATHING PATTERN - Cardiovascular Exam Cardiovascular Exam: REGULAR RHYTHM, +S1, +S2 - GI/Abdominal Exam GI & Abdominal Exam: Soft, Normal Bowel Sounds - Extremities Exam Extremities Exam: Full ROM, Normal Capillary Refill - Neurological Exam Neurological Exam: Alert, Awake, CN II-XII Intact - Psychiatric Exam Psychiatric exam: Normal Mood - Skin Skin Exam: Dry, Warm Objective - Vital Signs/Intake and Output Vital Signs (last 24 hours): Temp Pulse Resp BP Pulse Ox 98.1 F 120 H 20 130/84 95 07/09/17 16:00 07/09/17 22:17 07/09/17 16:00 07/09/17 21:41 07/09/17 16:00 Intake and Output: 07/09/17 07/10/17 18:59 06:59 Intake Total 250 Output Total 1300 Balance -1050 - Medications Medications: Current Medications Acetaminophen (Tylenol 325mg Tab) 325 mg PO Q6 [facility] Last Admin: 07/09/17 18:20 Dose: 325 mg Albuterol/Ipratropium (Duoneb 3 Mg/0.5 Mg (3 Ml) Ud) 3 ml IH RQ6 [facility] Last Admin: 07/09/17 20:14 Dose: 3 ml Clopidogrel Bisulfate (Plavix) 75 mg PO DAILY [facility] Last Admin: 07/09/17 09:45 Dose: 75 mg Docusate Sodium (Colace) 100 mg PO DAILY [facility] Last Admin: 07/09/17 09:45 Dose: 100 mg Famotidine (Pepcid) 20 mg PO DAILY [facility] Last Admin: 07/09/17 09:45 Dose: 20 mg Guaifenesin/Dextromethorphan (Robitussin Dm) 5 ml PO Q4H PRN PRN Reason: Cough Last Admin: 07/09/17 13:23 Dose: 5 ml Aztreonam 2 gm/ Sodium (Chloride) 100 mls @ 200 mls/hr IVPB Q12H [facility] Last Admin: 07/09/17 17:17 Dose: 200 mls/hr Metronidazole (Flagyl) 500 mg in 100 mls @ 100 mls/hr IVPB Q12H [facility] Last Admin: 07/09/17 18:19 Dose: 100 mls/hr Vancomycin HCl 1 gm/ Sodium (Chloride) 200 mls @ 166.7 mls/hr IVPB Q24H [facility] Last Admin: 07/09/17 08:30 Dose: 166.7 mls/hr Insulin Aspart (Novolog) 0 unit SC Q6 [facility] PRN Reason: Protocol Last Admin: 07/09/17 18:19 Dose: 2 unit Methylprednisolone (Solu-Medrol) 40 mg IVP Q8 [facility] Last Admin: 07/09/17 21:34 Dose: 40 mg Metoprolol Succinate (Toprol Xl) 12.5 mg PO Q12 [facility] Last Admin: 07/09/17 21:34 Dose: 12.5 mg Montelukast Sodium (Singulair) 10 mg PO DAILY [facility] Last Admin: 07/09/17 09:45 Dose: 10 mg Potassium Chloride (Klor-Con 10) 10 meq PO DAILY [facility] Last Admin: 07/09/17 09:45 Dose: 10 meq Rosuvastatin Calcium (Crestor) 10 mg PO HS [facility] Last Admin: 07/09/17 21:34 Dose: 10 mg Sennosides (Senokot Tab) 8.6 mg PO BID [facility] Last Admin: 07/09/17 18:17 Dose: 8.6 mg - Labs Labs: 07/09/17 11:49 07/09/17 06:34 PT 13.6 SECONDS (9.7-12.2) H 07/06/17 11:09 INR 1.2 07/06/17 11:09 APTT 24 SECONDS (21-34) 07/06/17 11:09 Assessment and Plan - Assessment and Plan (Free Text) Assessment: 1. Dyspnea Pneumonia Vs. Diastolic CHF Check Pro BNP Lasix PRN ECHO: Normal EF 2. HTN controlled 3. Pneumonia Medical management
[2017-07-10] MEDS: Albuterol-Ipratrop 3 mg / 0.5 (3 ml) UD IH SCH ×4 (01:14→20:44)
[2017-07-10] MEDS: guaiFENesin DM 100 mg-10 mg/5 ml UD PO PRN ×3 (01:52→13:04)
[2017-07-10] MEDS: metroNIDAZOLE IV 500 mg/100 ml 500 MG/100 ML BAG IVPB SCH ×2 (05:55→18:51)
[2017-07-10] MEDS: MethylPREDNISolone 40 mg Vial IVP SCH ×3 (05:55→22:06)
[2017-07-10] MEDS: Aztreonam 2 GM in Sodium Chloride 0.9% 100 ML IVPB SCH ×2 (06:38→19:41)
[2017-07-10] MEDS: (Novolog) Insulin Aspart, Recombinant 100 u/ml 10 ml vial SC SCH ×4 (06:39→17:45)
[2017-07-10 08:44] LABS: BASO % 0.1 % (0.0-2.0); LYMPH # 0.8 K/uL (1.0-4.3); LYMPH % 4.3 % (20.0-40.0); MEAN CELL VOLUME 99.3 fL (81.0-99.0); MEAN CORPUSCULAR HEMOGLOBIN 32.7 pg (27.0-31.0); MEAN PLATELET VOLUME 7.6 fL (7.2-11.7); MONO # 0.9 K/uL (0.0-0.8); MONO % 4.9 % (0.0-10.0); NEUT # 15.8 K/uL (1.8-7.0); NEUT % 90.7 % (50.0-75.0); NRBC % 0.3 % (0.0-2.0); PLATELET COUNT 382 K/uL (130-400); RBC 2.75 Mil/uL (3.80-5.20); RED CELL DISTRIBUTION WIDTH 17.9 % (11.5-14.5); WHITE BLOOD COUNT 17.5 K/uL (4.8-10.8)
[2017-07-10 09:00] LABS: ALBUMIN 2.8 g/dL (3.5-5.0); ALT/SGPT 42 U/L (9-52); AST/SGOT 19 U/L (14-36); BLOOD UREA NITROGEN 24 mg/dL (7-17); CALCIUM 8.8 mg/dl (8.6-10.4); GFR AFRICAN-AMERICAN > 60; GFR NON-AFRICAN AMERICAN > 60
[2017-07-10 09:13] LABS: FREE T4 0.74 ng/dL (0.78-2.19)
[2017-07-10] MEDS: Vancomycin 1 GM in Sodium Chloride 0.9% 200 ML IVPB SCH (09:30)
[2017-07-10] MEDS: Potassium Chloride 10 mEq ER Tab PO SCH (09:40)
[2017-07-10 10:07] LABS: BANDS 2 % (0-2); LYMPHOCYTE 3 % (20-40); MONOCYTE 3 % (0-10); MYELOCYTE 1 % (0-0); NEUTROPHIL 91 % (50-75); PLATELET ESTIMATE NORMAL (NORMAL); TOTAL CELLS COUNTED 100
[2017-07-10 10:08] LABS: ANISOCYTOSIS SLIGHT
[2017-07-10] MEDS ORDERED: Potassium Chloride 20 mEq ER Tab PO ONE (10:30)
[2017-07-10] MEDS: Metoprolol Succinate 12.5 mg XL PO SCH ×2 (11:28→22:06)
[2017-07-10 11:46] LABS: FOLATE 7.6 ng/mL
--- NOTE | 2017-07-10 14:23 | MRI ---
PROCEDURE: MRI BRAIN WITHOUT CONTRAST HISTORY: [employer] COMPARISON: MRI brain without contrast from 06/02/[address] from 07/09/2017 TECHNIQUE: Multiplanar, multisequence MR images of the brain were obtained without intravenous contrast enhancement. FINDINGS: HEMORRHAGE: None DWI: No evidence of an acute or early subacute infarction. BRAIN PARENCHYMA: There are mild chronic microangiopathic changes. There is redemonstration of a 1.5 x 1.2 cm left parietal convexity meningioma. There is no mass effect or abnormal extra-axial fluid collection. There is a partially empty sella, otherwise midline sagittal structures are normal. VENTRICLES: There is moderate age-related global parenchymal volume loss and proportionate enlargement of the ventricles and cortical sulci. CRANIUM: There is normal bone marrow signal pattern. ORBITS: Grossly unremarkable. PARANASAL SINUSES/MASTOIDS: Are fluid levels in the left maxillary and sphenoid sinuses. The remaining included paranasal sinuses are predominantly clear. The right mastoid air cells are clear. There is a large left mastoid effusion. VASCULAR SYSTEM: There are normal signal voids in the larger intracranial arteries. OTHER FINDINGS: None. IMPRESSION: 1. No acute intracranial abnormality. Specifically, no MRI evidence for acute posterior cerebral artery territory infarction 2. Mild chronic microangiopathic changes and moderate age-related global parenchymal volume loss. 3. Stable 1.5 cm left parietal convexity meningioma. 4. Fluid in the left maxillary and sphenoid sinuses enlarged mastoid effusion may represent acute sinusitis and mastoiditis in the appropriate clinical setting. Clinical follow-up is advised.
--- NOTE | 2017-07-10 15:23 | CP.PCM.PN ---
Subjective - Date & Time of Evaluation Date of Evaluation: 07/10/17 Time of Evaluation: 08:00 - Subjective Subjective: Patient was seen and evaluated. On BiPAP. She states that her breathing has improved and feels better. She denies any chest pain, headache, nausea, or vomiting. Patient had MRI and Carotid U/S this morning. Assessment and Plan: Patient is a 81 y.o F with PMH of asthma, bronchitis, HTN, HLD, GERD, urinary incontinence who presented with shortness of breath requiring BiPAP and cough, most likely due to pneumonia. SOB: -BiPAP as needed -swallow eval to rule out aspiration -Continue Duoneb treatments, Solu-medrol and Singulair -On IV abx -Robitussin for cough as needed -Most recent lactate on 07/06 = 2.1 -Procalcitonin on 07/09 = 1.34 -CXR on 07/07 showed small opacities more prominent at the lower lobe. Hyperinflation of the lungs consistent with the patient's history of COPD. UTI: -gram negative rods in urine -azactam AMS: -MRI brain on 07/10 - report pending -Carotid Doppler on 07/10 - report pending -Head CT showed no evidence of acute infarct. No ICH. 1.5 cm left frontal extra- axial mass, most likely meningioma. Chronic paranasal sinusitis. Left mastoid effusion and fluid/soft tissue density in left middle ear cavity. -Neuro following Objective - Vital Signs/Intake and Output Vital Signs (last 24 hours): Temp Pulse Resp BP Pulse Ox 98.1 F 112 H 23 136/87 99 07/10/17 07:30 07/10/17 07:47 07/10/17 07:30 07/10/17 07:30 07/10/17 07:30 Intake and Output: 07/10/17 07/10/17 06:59 18:59 Intake Total 750 Output Total 400 Balance 350 - Medications Medications: Current Medications Acetaminophen (Tylenol 325mg Tab) 325 mg PO Q6 [facility] Last Admin: 07/10/17 13:06 Dose: Not Given Albuterol/Ipratropium (Duoneb 3 Mg/0.5 Mg (3 Ml) Ud) 3 ml IH RQ6 [facility] Last Admin: 07/10/17 13:39 Dose: 3 ml Clopidogrel Bisulfate (Plavix) 75 mg PO DAILY [facility] Last Admin: 07/10/17 09:40 Dose: 75 mg Docusate Sodium (Colace) 100 mg PO DAILY [facility] Last Admin: 07/10/17 09:40 Dose: 100 mg Famotidine (Pepcid) 20 mg PO DAILY [facility] Last Admin: 07/10/17 09:40 Dose: 20 mg Guaifenesin/Dextromethorphan (Robitussin Dm) 5 ml PO Q4H PRN PRN Reason: Cough Last Admin: 07/10/17 13:04 Dose: 5 ml Aztreonam 2 gm/ Sodium (Chloride) 100 mls @ 200 mls/hr IVPB Q12H [facility] Last Admin: 07/10/17 06:38 Dose: 200 mls/hr Metronidazole (Flagyl) 500 mg in 100 mls @ 100 mls/hr IVPB Q12H [facility] Last Admin: 07/10/17 05:55 Dose: 100 mls/hr Vancomycin HCl 1 gm/ Sodium (Chloride) 200 mls @ 166.7 mls/hr IVPB Q24H [facility] Last Admin: 07/10/17 09:30 Dose: 166.7 mls/hr Insulin Aspart (Novolog) 0 unit SC Q6 [facility] PRN Reason: Protocol Last Admin: 07/10/17 13:03 Dose: 2 unit Methylprednisolone (Solu-Medrol) 40 mg IVP Q8 [facility] Last Admin: 07/10/17 13:03 Dose: 40 mg Metoprolol Succinate (Toprol Xl) 12.5 mg PO Q12 [facility] Last Admin: 07/10/17 11:28 Dose: 12.5 mg Montelukast Sodium (Singulair) 10 mg PO DAILY [facility] Last Admin: 07/10/17 09:40 Dose: 10 mg Potassium Chloride (Klor-Con 10) 10 meq PO DAILY [facility] Last Admin: 07/10/17 09:40 Dose: 10 meq Rosuvastatin Calcium (Crestor) 10 mg PO HS [facility] Last Admin: 07/09/17 21:34 Dose: 10 mg Sennosides (Senokot Tab) 8.6 mg PO BID [facility] Last Admin: 07/10/17 09:40 Dose: 8.6 mg - Labs Labs: 07/10/17 08:31 07/10/17 08:28 PT 13.6 SECONDS (9.7-12.2) H 07/06/17 11:09 INR 1.2 07/06/17 11:09 APTT 24 SECONDS (21-34) 07/06/17 11:09 Assessment and Plan (1) Pneumonia Status: Acute (2) UTI (urinary tract infection) Status: Acute (3) Asthma exacerbation Status: Acute
--- NOTE | 2017-07-10 16:32 | VASCLAB ---
PROCEDURE: HISTORY: AMS COMPARISON: None available. TECHNIQUE: Grayscale and duplex Doppler evaluation of the cervical carotid and vertebral arteries were performed. The common carotid, carotid bifurcations and cervical Internal Carotid Artery (ICA) and proximal External Carotid Artery (ECA) were evaluated. The vertebral arteries were evaluated for gross patency and flow direction. Report prepared by Darien Ni, BS, RVT FINDINGS: RIGHT CAROTID ARTERIES: 1. Common Carotid Artery: No significant focal plaque formation of the right common carotid artery. Maximum Peak Systolic velocity: 41 cm/sec: End-diastolic velocity 9 cm/sec. 2. Carotid Bifurcation: plaque formation. Maximum Peak Systolic velocity: 28 cm/sec: End-diastolic velocity 9 cm/sec. 3. Internal Carotid Artery: Plaque description: 3.1. Proximal Segment: Peak systolic velocity 47 cm/sec: End-diastolic velocity 18 cm/sec - % stenosis 0-15% 3.2. Middle Segment: Peak systolic velocity 48 cm/sec: End-diastolic velocity 18 cm/sec - % stenosis 0-15% 3.3. Distal Segment: Peak systolic velocity 38 cm/sec: End-diastolic velocity 13 cm/sec - % stenosis 0-15% 4. External Carotid Artery: No significant focal plaque formation. Peak systolic velocity 49 cm/sec 5. ICA/CCA Ratio: 1.2 LEFT CAROTID ARTERIES: 1. Common Carotid Artery: No significant focal plaque formation of the left common carotid artery. Maximum Peak Systolic velocity: 49 cm/sec: End-diastolic velocity 14 cm/sec. 2. Carotid Bifurcation: plaque formation. Maximum Peak Systolic velocity: 52 cm/sec: End-diastolic velocity 12 cm/sec. 3. Internal Carotid Artery: Plaque description: 3.1. Proximal Segment: Peak systolic velocity 47 cm/sec: End-diastolic velocity 19 cm/sec - % stenosis 0-15% 3.2. Middle Segment: Peak systolic velocity 64 cm/sec: End-diastolic velocity 25 cm/sec - % stenosis 0-15% 3.3. Distal Segment: Peak systolic velocity 45 cm/sec: End-diastolic velocity 18 cm/sec - % stenosis 0-15% 4. External Carotid Artery: No significant focal plaque formation. Peak systolic velocity 91 cm/sec 5. ICA/CCA Ratio: 1.3 VERTEBRAL ARTERIES: 1. Right Vertebral Artery: The right vertebral artery flow direction is antegrade. 2. Left Vertebral Artery: The left vertebral artery flow direction is antegrade. OTHER FINDINGS: 1. Right Brachial Blood pressure: 100 mmHg. 2. Left Brachial Blood pressure: PICC LINE mmHg. IMPRESSION: RIGHT: Duplex scan does not suggest hemodynamically significant stenosis of the right extracranial carotid arteries. LEFT: Duplex scan does not suggest hemodynamically significant stenosis of the left extracranial carotid arteries.
--- NOTE | 2017-07-10 16:33 | CP.PCM.PN ---
Subjective - Date & Time of Evaluation Date of Evaluation: 07/10/17 Time of Evaluation: 10:20 - Subjective Subjective: clinically same Objective - Vital Signs/Intake and Output Vital Signs (last 24 hours): Temp Pulse Resp BP Pulse Ox 97.8 F 100 H 20 135/88 96 07/10/17 16:00 07/10/17 16:00 07/10/17 15:46 07/10/17 16:00 07/10/17 15:46 Intake and Output: 07/10/17 07/10/17 06:59 18:59 Intake Total 750 Output Total 400 Balance 350 - Medications Medications: Current Medications Acetaminophen (Tylenol 325mg Tab) 325 mg PO Q6 [facility] Last Admin: 07/10/17 13:06 Dose: Not Given Albuterol/Ipratropium (Duoneb 3 Mg/0.5 Mg (3 Ml) Ud) 3 ml IH RQ6 [facility] Last Admin: 07/10/17 13:39 Dose: 3 ml Clopidogrel Bisulfate (Plavix) 75 mg PO DAILY [facility] Last Admin: 07/10/17 09:40 Dose: 75 mg Docusate Sodium (Colace) 100 mg PO DAILY [facility] Last Admin: 07/10/17 09:40 Dose: 100 mg Famotidine (Pepcid) 20 mg PO DAILY [facility] Last Admin: 07/10/17 09:40 Dose: 20 mg Guaifenesin/Dextromethorphan (Robitussin Dm) 5 ml PO Q4H PRN PRN Reason: Cough Last Admin: 07/10/17 13:04 Dose: 5 ml Aztreonam 2 gm/ Sodium (Chloride) 100 mls @ 200 mls/hr IVPB Q12H [facility] Last Admin: 07/10/17 06:38 Dose: 200 mls/hr Metronidazole (Flagyl) 500 mg in 100 mls @ 100 mls/hr IVPB Q12H [facility] Last Admin: 07/10/17 05:55 Dose: 100 mls/hr Vancomycin HCl 1 gm/ Sodium (Chloride) 200 mls @ 166.7 mls/hr IVPB Q24H [facility] Last Admin: 07/10/17 09:30 Dose: 166.7 mls/hr Insulin Aspart (Novolog) 0 unit SC Q6 [facility] PRN Reason: Protocol Last Admin: 07/10/17 13:03 Dose: 2 unit Methylprednisolone (Solu-Medrol) 40 mg IVP Q8 [facility] Last Admin: 07/10/17 13:03 Dose: 40 mg Metoprolol Succinate (Toprol Xl) 12.5 mg PO Q12 [facility] Last Admin: 07/10/17 11:28 Dose: 12.5 mg Montelukast Sodium (Singulair) 10 mg PO DAILY [facility] Last Admin: 07/10/17 09:40 Dose: 10 mg Potassium Chloride (Klor-Con 10) 10 meq PO DAILY [facility] Last Admin: 07/10/17 09:40 Dose: 10 meq Rosuvastatin Calcium (Crestor) 10 mg PO HS [facility] Last Admin: 07/09/17 21:34 Dose: 10 mg Sennosides (Senokot Tab) 8.6 mg PO BID [facility] Last Admin: 07/10/17 09:40 Dose: 8.6 mg - Labs Labs: 07/10/17 08:31 07/10/17 08:28 PT 13.6 SECONDS (9.7-12.2) H 07/06/17 11:09 INR 1.2 07/06/17 11:09 APTT 24 SECONDS (21-34) 07/06/17 11:09 - Constitutional Appears: Well - Head Exam Head Exam: ATRAUMATIC, NORMAL INSPECTION, NORMOCEPHALIC - Eye Exam Eye Exam: EOMI, Normal appearance, PERRL Pupil Exam: NORMAL ACCOMODATION, PERRL - ENT Exam ENT Exam: Mucous Membranes Moist, Normal Exam - Neck Exam Neck Exam: Full ROM, Normal Inspection. absent: Lymphadenopathy - Respiratory Exam Respiratory Exam: Decreased Breath Sounds - Cardiovascular Exam Cardiovascular Exam: REGULAR RHYTHM, +S1, +S2 - GI/Abdominal Exam GI & Abdominal Exam: Soft, Diminished Bowel Sounds - Rectal Exam Rectal Exam: Deferred
[2017-07-11] MEDS: (Novolog) Insulin Aspart, Recombinant 100 u/ml 10 ml vial SC SCH ×4 (01:16→17:57)
[2017-07-11] MEDS: Albuterol-Ipratrop 3 mg / 0.5 (3 ml) UD IH SCH ×3 (01:58→14:10)
[2017-07-11] MEDS: guaiFENesin DM 100 mg-10 mg/5 ml UD PO PRN ×2 (05:10→09:54)
[2017-07-11] MEDS: metroNIDAZOLE IV 500 mg/100 ml 500 MG/100 ML BAG IVPB SCH ×3 (05:10→19:00)
[2017-07-11] MEDS: MethylPREDNISolone 40 mg Vial IVP SCH ×3 (05:10→21:50)
[2017-07-11] MEDS: Aztreonam 2 GM in Sodium Chloride 0.9% 100 ML IVPB SCH ×2 (06:27→20:00)
--- NOTE | 2017-07-11 07:12 | CON ---
DATE: ATTENDING PHYSICIAN: Sue Barron MD LOCATION: The patient's room #568, bed A. REASON FOR CONSULTATION: Change in mental status. CHIEF COMPLAINT: The patient was admitted with respiratory compromisation. The patient has been noted to have change in mental status during her hospitalization. From neurological point of view, I was called in to evaluate her for further management. HISTORY OF PRESENT ILLNESS: Ms. Layla Wu is a 81-year-old right-handed female, who has been recently discharged from the [facility] for her respiratory complaints, and has been admitted again with similar complaints. During the hospitalization, the patient was found to have change in mental status. No history of fall. No history of trauma to her head. No history of involuntary movements. No history of loss of consciousness. No history of bowel and bladder incontinence or bitten tongue. PAST MEDICAL HISTORY: Asthma, bronchitis, hypertension, dyslipidemia, GERD, arthritis, pneumonia, recurrent urinary tract infection. PAST SURGICAL HISTORY: Esophagectomy and hysterectomy in the past. REVIEW OF SYSTEM: A 12-point system being reviewed. PERSONAL HISTORY: Denies smoking or alcohol use. ALLERGIES: ALLERGIC TO ASPIRIN, CIPRO, NITROFURANTOIN. PHYSICAL EXAMINATION: VITAL SIGNS: Blood pressure 126/78, mean arterial pressure of 94, respiratory rate of 16, temperature 98.1, pulse rate 112. GENERAL: Patient on BiPAP, awake. NECK: Supple. No carotid bruits. HEART: Sounds with systolic murmur with crackles on both side of the lungs. EXTREMITIES: 1+ pitting edema. NEUROLOGIC EXAMINATION: The patient responds to her name. Speech is fluent. She knows she is in the hospital. However, she has been confused with things that are in front of her including glove boxes and sharp containers. She moves both upper and lower extremities; however, spontaneous movement is more pronounced in the upper extremities than her lower extremities. Right and left confusion; however, she is able to follow one-step command. She does not know the year. Cranial Nerve Examination: Visual field intact. Pupils are reactive to light. Extraocular movements decreased in all direction. No facial sensory deficit. No facial asymmetry. Hearing is normal. Tongue is midline. Good gag. Motor Examination: Outstretched hand with eyes closed, no drift noted. Power is symmetric on either side. Lower extremities with inability to lift both lower extremities. More weakness on the right more than her left leg. Left leg showed foot drop and postsurgical scar seen on her right knee of probable knee replacement in the past. Deep Tendon Reflexes: Absent. Plantars are mute on both sides. Sensory Examination: Significant distal sensory motor neuropathy. Coordination: Finger-nose test seems to be intact. Gait is deferred at this time. DIAGNOSTIC WORKUP: CT of the head reviewed by me showed around 1.5 cm left frontal region meningioma. BLOOD WORKUP: WBC 17.2, hemoglobin 9.0, hematocrit 27.5, platelets 432. Band is 1. Glucose 180. Urine shows 1+ proteinuria, 1+ hematuria, occult blood is positive. Sodium 134, potassium 3.0, chloride 102, bicarbonate of 21, BUN 33, creatinine 0.8, GFR more than 60, calcium 8.2, phosphorus 3.8, magnesium 1.9. CONCLUSION: Ms. Layla Wu has been presenting with bilateral cerebral dysfunction. This is probably secondary to her underlying dementia. Either it could be a mixed dementia, mild cognitive impairment associating with senile dementia of Alzheimer type, which probably worsened due to the hyperperfusion syndrome at present. The CAT scan showed meningioma, which could be a fluctuant change in mental status probably secondary to her seizures secondary to the meningioma. RECOMMENDATIONS: 1. MRI of the brain. 2. Carotid Doppler. 3. Echocardiogram to rule out any cardiac causes for the change in mental status. 4. Continue the present management and workup should be followed as recommended for her dementia. The patient should be kept on fall precaution and physical therapy should be initiated. The patient does have a left foot drop associating with significant peripheral neuropathy and the patient definitely needs electrodiagnostic studies, which can be done as an outpatient for her assessment of neuropathy and further management. When she gets physical therapy, patient should be getting AFO to prevent fall on her left side due to her foot drop. Chito Hua MD
[2017-07-11] MEDS: Vancomycin 1 GM in Sodium Chloride 0.9% 200 ML IVPB SCH (09:00)
[2017-07-11] MEDS: Potassium Chloride 10 mEq ER Tab PO SCH (09:55)
[2017-07-11] MEDS: Metoprolol Succinate 12.5 mg XL PO SCH ×2 (09:55→21:50)
--- NOTE | 2017-07-11 10:06 | PN ---
DATE: 07/11/2017 TIME OF EVALUATION: 7:10 a.m. NEUROLOGICAL PROBLEM: Toxic metabolic encephalopathy, superimposed with senile dementia of Alzheimer type. Incidental finding of left frontal meningioma. PHYSICAL EXAMINATION: VITAL SIGNS: The blood pressure 122/79, mean arterial pressure of 99, respiratory rate of 16, temperature afebrile. GENERAL: The patient is awake, alert, on BiPAP. He follows commands, he moves all 4 extremities against gravity. Examination which is unchanged to compare with her previous examination. The patient did have an MRI of the brain, showed frontal meningioma, which is silent at present. I doubt that the patient has been getting seizures from this. However, the patient should have electroencephalogram. The patient can continue the present management. The patient should be getting out of the bed. The patient will be followed closely with you. Chito Hua MD
[2017-07-11 11:23] LABS: BASO % 0.1 % (0.0-2.0); LYMPH # 0.7 K/uL (1.0-4.3); LYMPH % 4.1 % (20.0-40.0); MEAN CELL VOLUME 99.1 fL (81.0-99.0); MEAN CORPUSCULAR HEMOGLOBIN 33.1 pg (27.0-31.0); MEAN CORPUSCULAR HGB CONC 33.4 g/dL (33.0-37.0); MEAN PLATELET VOLUME 7.5 fL (7.2-11.7); MONO # 0.7 K/uL (0.0-0.8); MONO % 4.1 % (0.0-10.0); NEUT # 16.7 K/uL (1.8-7.0); NEUT % 91.7 % (50.0-75.0); NRBC % 0.5 % (0.0-2.0); PLATELET COUNT 355 K/uL (130-400); RBC 2.73 Mil/uL (3.80-5.20); RED CELL DISTRIBUTION WIDTH 17.7 % (11.5-14.5); WHITE BLOOD COUNT 18.2 K/uL (4.8-10.8)
[2017-07-11 11:44] LABS: ALBUMIN 2.6 g/dL (3.5-5.0); ALT/SGPT 42 U/L (9-52); AST/SGOT 21 U/L (14-36); BLOOD UREA NITROGEN 21 mg/dL (7-17); CALCIUM 8.4 mg/dl (8.6-10.4); GFR AFRICAN-AMERICAN > 60; GFR NON-AFRICAN AMERICAN > 60
[2017-07-11 12:05] LABS: BANDS 3 % (0-2); LYMPHOCYTE 2 % (20-40); MONOCYTE 2 % (0-10); MYELOCYTE 2 % (0-0); NEUTROPHIL 90 % (50-75); PLATELET ESTIMATE NORMAL (NORMAL); REACTIVE LYMPHOCYTES 1 % (0-0); TOTAL CELLS COUNTED 100
[2017-07-11 12:06] LABS: ANISOCYTOSIS SLIGHT; BURR CELLS SLIGHT; OVALOCYTES SLIGHT
--- NOTE | 2017-07-11 14:01 | CP.PCM.PN ---
Subjective - Date & Time of Evaluation Date of Evaluation: 07/11/17 Time of Evaluation: 10:20 - Subjective Subjective: clinically same Objective - Vital Signs/Intake and Output Vital Signs (last 24 hours): Temp Pulse Resp BP Pulse Ox 98.0 F 93 H 21 152/89 H 100 07/11/17 07:40 07/11/17 07:40 07/11/17 07:40 07/11/17 07:40 07/11/17 07:40 Intake and Output: 07/11/17 07/11/17 06:59 18:59 Intake Total 650 Output Total 500 Balance 150 - Medications Medications: Current Medications Acetaminophen (Tylenol 325mg Tab) 325 mg PO Q6 [facility] Last Admin: 07/11/17 07:29 Dose: Not Given Albuterol/Ipratropium (Duoneb 3 Mg/0.5 Mg (3 Ml) Ud) 3 ml IH RQ6 [facility] Last Admin: 07/11/17 01:58 Dose: 3 ml Clopidogrel Bisulfate (Plavix) 75 mg PO DAILY [facility] Last Admin: 07/11/17 09:54 Dose: 75 mg Docusate Sodium (Colace) 100 mg PO DAILY [facility] Last Admin: 07/11/17 09:54 Dose: 100 mg Famotidine (Pepcid) 20 mg PO DAILY [facility] Last Admin: 07/11/17 09:55 Dose: 20 mg Folic Acid (Folic Acid) 1 mg PO DAILY [facility] Last Admin: 07/11/17 09:55 Dose: 1 mg Guaifenesin/Dextromethorphan (Robitussin Dm) 5 ml PO Q4H PRN PRN Reason: Cough Last Admin: 07/11/17 09:54 Dose: 5 ml Aztreonam 2 gm/ Sodium (Chloride) 100 mls @ 200 mls/hr IVPB Q12H [facility] Last Admin: 07/11/17 06:27 Dose: 200 mls/hr Metronidazole (Flagyl) 500 mg in 100 mls @ 100 mls/hr IVPB Q12H [facility] Last Admin: 07/11/17 05:10 Dose: 100 mls/hr Vancomycin HCl 1 gm/ Sodium (Chloride) 200 mls @ 166.7 mls/hr IVPB Q24H [facility] Last Admin: 07/11/17 09:00 Dose: 166.7 mls/hr Insulin Aspart (Novolog) 0 unit SC Q6 [facility] PRN Reason: Protocol Last Admin: 07/11/17 12:34 Dose: 3 unit Methylprednisolone (Solu-Medrol) 40 mg IVP Q8 [facility] Last Admin: 07/11/17 13:59 Dose: 40 mg Metoprolol Succinate (Toprol Xl) 12.5 mg PO Q12 [facility] Last Admin: 07/11/17 09:55 Dose: 12.5 mg Montelukast Sodium (Singulair) 10 mg PO DAILY [facility] Last Admin: 07/11/17 09:55 Dose: 10 mg Potassium Chloride (Klor-Con 10) 10 meq PO DAILY [facility] Last Admin: 07/11/17 09:55 Dose: 10 meq Rosuvastatin Calcium (Crestor) 10 mg PO HS [facility] Last Admin: 07/10/17 21:16 Dose: 10 mg Sennosides (Senokot Tab) 8.6 mg PO BID [facility] Last Admin: 07/11/17 09:54 Dose: 8.6 mg - Labs Labs: 07/11/17 11:14 07/11/17 11:14 PT 13.6 SECONDS (9.7-12.2) H 07/06/17 11:09 INR 1.2 07/06/17 11:09 APTT 24 SECONDS (21-34) 07/06/17 11:09 - Constitutional Appears: Well - Head Exam Head Exam: ATRAUMATIC, NORMAL INSPECTION, NORMOCEPHALIC - Eye Exam Eye Exam: EOMI, Normal appearance, PERRL Pupil Exam: NORMAL ACCOMODATION, PERRL - ENT Exam ENT Exam: Mucous Membranes Moist, Normal Exam - Neck Exam Neck Exam: Full ROM, Normal Inspection. absent: Lymphadenopathy - Respiratory Exam Respiratory Exam: Decreased Breath Sounds - Cardiovascular Exam Cardiovascular Exam: REGULAR RHYTHM, +S1, +S2 - GI/Abdominal Exam GI & Abdominal Exam: Soft, Diminished Bowel Sounds - Rectal Exam Rectal Exam: Deferred
--- NOTE | 2017-07-11 17:36 | CP.PCM.PN ---
Subjective - Date & Time of Evaluation Date of Evaluation: 07/11/17 Time of Evaluation: 09:00 - Subjective Subjective: Patient was seen and evaluated. She states that breathing has improved. She reports feeling dizzy yesterday, but feels better this morning. Patient also reports decreased cough. She has no new complaints. Assessment and Plan: Patient is a 81 y.o F with PMH of asthma, bronchitis, HTN, HLD, GERD, urinary incontinence who presented with shortness of breath requiring BiPAP and cough, most likely due to pneumonia. SOB: -BiPAP as needed -swallow eval to rule out aspiration -Continue Duoneb treatments, taper Solu-medrol and cont Singulair -On IV abx -Robitussin for cough as needed -Most recent lactate on 07/06 = 2.1 -Procalcitonin on 07/09 = 1.34 -CRP >15 -CXR on 07/07 showed small opacities more prominent at the lower lobe. Hyperinflation of the lungs consistent with the patient's history of COPD -WBC on 07/10 17.5 uptrending from 17.2 on 07/09 UTI: -gram negative rods in urine -azactam ? Objective - Vital Signs/Intake and Output Vital Signs (last 24 hours): Temp Pulse Resp BP Pulse Ox 97.9 F 97 H 20 141/97 H 98 07/11/17 16:35 07/11/17 16:35 07/11/17 16:35 07/11/17 16:35 07/11/17 16:35 Intake and Output: 07/11/17 07/11/17 06:59 18:59 Intake Total 650 600 Output Total 500 200 Balance 150 400 - Medications Medications: Current Medications Acetaminophen (Tylenol 325mg Tab) 325 mg PO Q6 [facility] Last Admin: 07/11/17 14:00 Dose: 325 mg Clopidogrel Bisulfate (Plavix) 75 mg PO DAILY [facility] Last Admin: 07/11/17 09:54 Dose: 75 mg Docusate Sodium (Colace) 100 mg PO DAILY [facility] Last Admin: 07/11/17 09:54 Dose: 100 mg Famotidine (Pepcid) 20 mg PO DAILY [facility] Last Admin: 07/11/17 09:55 Dose: 20 mg Folic Acid (Folic Acid) 1 mg PO DAILY [facility] Last Admin: 02/21/18 09:55 Dose: 1 mg Guaifenesin/Dextromethorphan (Robitussin Dm) 5 ml PO Q4H PRN PRN Reason: Cough Last Admin: 07/11/17 09:54 Dose: 5 ml Aztreonam 2 gm/ Sodium (Chloride) 100 mls @ 200 mls/hr IVPB Q12H [facility] Last Admin: 07/11/17 06:27 Dose: 200 mls/hr Metronidazole (Flagyl) 500 mg in 100 mls @ 100 mls/hr IVPB Q12H [facility] Last Admin: 07/11/17 05:10 Dose: 100 mls/hr Vancomycin HCl 1 gm/ Sodium (Chloride) 200 mls @ 166.7 mls/hr IVPB Q24H [facility] Last Admin: 07/11/17 09:00 Dose: 166.7 mls/hr Insulin Aspart (Novolog) 0 unit SC Q6 [facility] PRN Reason: Protocol Last Admin: 07/11/17 12:34 Dose: 3 unit Methylprednisolone (Solu-Medrol) 40 mg IVP Q8 [facility] Last Admin: 07/11/17 13:59 Dose: 40 mg Metoprolol Succinate (Toprol Xl) 12.5 mg PO Q12 [facility] Last Admin: 07/11/17 09:55 Dose: 12.5 mg Montelukast Sodium (Singulair) 10 mg PO DAILY [facility] Last Admin: 07/11/17 09:55 Dose: 10 mg Potassium Chloride (Klor-Con 10) 10 meq PO DAILY [facility] Last Admin: 07/11/17 09:55 Dose: 10 meq Rosuvastatin Calcium (Crestor) 10 mg PO HS [facility] Last Admin: 07/10/17 21:16 Dose: 10 mg Sennosides (Senokot Tab) 8.6 mg PO BID [facility] Last Admin: 07/11/17 09:54 Dose: 8.6 mg - Labs Labs: 07/11/17 11:14 07/11/17 11:14 PT 13.6 SECONDS (9.7-12.2) H 07/06/17 11:09 INR 1.2 07/06/17 11:09 APTT 24 SECONDS (21-34) 07/06/17 11:09 Assessment and Plan (1) Pneumonia Status: Acute (2) UTI (urinary tract infection) Status: Acute (3) Asthma exacerbation Status: Acute
--- NOTE | 2017-07-11 18:27 | CP.PCM.CON ---
History of Present Illness - History of Present Illness History of Present Illness: CONSULT DICTATED HEADACHE - NO LONG TRACT SIGNS I DOUBT GIANT CELL ARTERITIS ??? IATROGENIC BP MEDS ? FLAGYL EXAM CERVICAL MYELOPATHY NEEDS MRI/ BLOOD WORK UP HYDRATION Past Patient History - Infectious Disease Hx of Infectious Diseases: None - Past Medical History & Family History Past Medical History?: Yes - Past Social History Smoking Status: Never Smoked - CARDIAC Hx Hypertension: Yes - PULMONARY Hx Chronic Obstructive Pulmonary Disease (COPD): Yes - NEUROLOGICAL Hx Neurological Disorder: No - HEENT Hx HEENT Problems: No Other/Comment: WEARS GLASSES - RENAL Hx Chronic Kidney Disease: No - ENDOCRINE/METABOLIC Hx Endocrine Disorders: Yes - HEMATOLOGICAL/ONCOLOGICAL Hx Blood Disorders: Yes Hx Cancer: Yes (Esophagus) - INTEGUMENTARY Hx Dermatological Problems: No - MUSCULOSKELETAL/RHEUMATOLOGICAL Hx Arthritis: Yes (R TKR; BACK PAIN) - GASTROINTESTINAL Hx Gastrointestinal Disorders: Yes Hx Gastroesophageal Reflux: Yes Other/Comment: hx of esophageal CA - GENITOURINARY/GYNECOLOGICAL Hx Genitourinary Disorders: Yes - PSYCHIATRIC Hx Substance Use: No - SURGICAL HISTORY Hx Surgeries: Yes Hx Breast Biopsy: Yes Hx Hysterectomy: Yes Hx Orthopedic Surgery: Yes (RTKR) Other/Comment: ESOPHAGEAL SX - ANESTHESIA Hx Anesthesia: Yes Hx Anesthesia Reactions: No Hx Malignant Hyperthermia: No Meds Allergies/Adverse Reactions: Allergies Allergy/AdvReac Type Severity Reaction Status Date / Time aspirin Allergy Severe RASH Verified 05/30/17 11:42 ciprofloxacin [From Cipro] Allergy Severe RASH Verified 05/30/17 11:42 ciprofloxacin HCl Allergy Severe RASH Verified 05/30/17 11:42 [From Cipro] nitrofurantoin Allergy Severe RASH Verified 05/30/17 11:42 [From Macrobid] nitrofurantoin Allergy Severe RASH Verified 05/30/17 11:42 macrocrystalline [From Macrobid] Penicillins Allergy Severe RASH Verified 05/30/17 11:42 Sulfa (Sulfonamide Allergy Severe RASH Verified 05/30/17 11:42 Antibiotics) azithromycin Allergy ITCHING Verified 05/30/17 11:42 - Medications Medications: Current Medications Acetaminophen (Tylenol 325mg Tab) 325 mg PO Q6 [facility] Last Admin: 07/11/17 18:03 Dose: 325 mg Clopidogrel Bisulfate (Plavix) 75 mg PO DAILY [facility] Last Admin: 07/11/17 09:54 Dose: 75 mg Docusate Sodium (Colace) 100 mg PO DAILY [facility] Last Admin: 07/11/17 09:54 Dose: 100 mg Famotidine (Pepcid) 20 mg PO DAILY [facility] Last Admin: 07/11/17 09:55 Dose: 20 mg Folic Acid (Folic Acid) 1 mg PO DAILY [facility] Last Admin: 07/11/17 09:55 Dose: 1 mg Guaifenesin/Dextromethorphan (Robitussin Dm) 5 ml PO Q4H PRN PRN Reason: Cough Last Admin: 07/11/17 09:54 Dose: 5 ml Aztreonam 2 gm/ Sodium (Chloride) 100 mls @ 200 mls/hr IVPB Q12H [facility] Last Admin: 07/11/17 06:27 Dose: 200 mls/hr Metronidazole (Flagyl) 500 mg in 100 mls @ 100 mls/hr IVPB Q12H [facility] Last Admin: 07/11/17 17:58 Dose: 100 mls/hr Vancomycin HCl 1 gm/ Sodium (Chloride) 200 mls @ 166.7 mls/hr IVPB Q24H [facility] Last Admin: 07/11/17 09:00 Dose: 166.7 mls/hr Insulin Aspart (Novolog) 0 unit SC Q6 [facility] PRN Reason: Protocol Last Admin: 07/11/17 17:57 Dose: 2 unit Methylprednisolone (Solu-Medrol) 40 mg IVP Q8 [facility] Last Admin: 07/11/17 13:59 Dose: 40 mg Metoprolol Succinate (Toprol Xl) 12.5 mg PO Q12 [facility] Last Admin: 07/11/17 09:55 Dose: 12.5 mg Montelukast Sodium (Singulair) 10 mg PO DAILY [facility] Last Admin: 07/11/17 09:55 Dose: 10 mg Potassium Chloride (Klor-Con 10) 10 meq PO DAILY [facility] Last Admin: 07/11/17 09:55 Dose: 10 meq Rosuvastatin Calcium (Crestor) 10 mg PO HS [facility] Last Admin: 07/10/17 21:16 Dose: 10 mg Sennosides (Senokot Tab) 8.6 mg PO BID [facility] Last Admin: 07/11/17 17:57 Dose: 8.6 mg Results - Vital Signs Recent Vital Signs: Last Vital Signs Temp 97.9 F 07/11/17 16:35 Pulse 97 H 07/11/17 16:35 Resp 20 07/11/17 16:35 BP 141/97 H 07/11/17 16:35 Pulse Ox 98 07/11/17 16:35 - Labs Result Diagrams: 07/11/17 11:14 07/11/17 11:14 Labs: Laboratory Results - last 24 hr 07/10/17 07/10/17 07/11/17 08:28 21:01 05:52 WBC RBC Hgb Hct MCV MCH MCHC RDW Plt Count MPV Neut % (Auto) Lymph % (Auto) [place] % (Auto) Eos % (Auto) Baso % (Auto) Neut # (Auto) Lymph # (Auto) [place] # (Auto) Eos # (Auto) Baso # (Auto) Neutrophils % (Manual) Band Neutrophils % Lymphocytes % (Manual) Reactive Lymphs % Monocytes % (Manual) Myelocytes % Platelet Estimate Anisocytosis (manual) Ovalocytes [place] Cells Sodium Potassium Chloride Carbon Dioxide Anion Gap BUN Creatinine Est GFR ( Amer) Est GFR (Non-Af Amer) POC Glucose (mg/dL) 147 H 162 H Random Glucose Calcium Total Bilirubin AST ALT Alkaline Phosphatase Total Protein Albumin Globulin Albumin/Globulin Ratio RPR Nonreactive 07/11/17 07/11/17 07/11/17 11:14 11:14 11:52 WBC 18.2 H RBC 2.73 L Hgb 9.0 L Hct 27.0 L MCV 99.1 H MCH 33.1 H MCHC 33.4 RDW 17.7 H Plt Count 355 MPV 7.5 Neut % (Auto) 91.7 H Lymph % (Auto) 4.1 L [place] % (Auto) 4.1 Eos % (Auto) 0.0 Baso % (Auto) 0.1 Neut # (Auto) 16.7 H Lymph # (Auto) 0.7 L [place] # (Auto) 0.7 Eos # (Auto) 0.0 Baso # (Auto) 0.0 Neutrophils % (Manual) 90 H Band Neutrophils % 3 H Lymphocytes % (Manual) 2 L Reactive Lymphs % 1 H Monocytes % (Manual) 2 Myelocytes % 2 H Platelet Estimate Normal Anisocytosis (manual) Slight Ovalocytes Slight [place] Cells Slight Sodium 131 L Potassium 4.0 Chloride 104 Carbon Dioxide 18 L Anion Gap 12 BUN 21 H Creatinine 0.7 Est GFR ( Amer) > 60 Est GFR (Non-Af Amer) > 60 POC Glucose (mg/dL) 200 H Random Glucose 197 H Calcium 8.4 L Total Bilirubin 0.2 AST 21 ALT 42 Alkaline Phosphatase 104 Total Protein 5.1 L Albumin 2.6 L Globulin 2.5 Albumin/Globulin Ratio 1.0 RPR 07/11/17 16:23 WBC RBC Hgb Hct MCV MCH MCHC RDW Plt Count MPV Neut % (Auto) Lymph % (Auto) [place] % (Auto) Eos % (Auto) Baso % (Auto) Neut # (Auto) Lymph # (Auto) [place] # (Auto) Eos # (Auto) Baso # (Auto) Neutrophils % (Manual) Band Neutrophils % Lymphocytes % (Manual) Reactive Lymphs % Monocytes % (Manual) Myelocytes % Platelet Estimate Anisocytosis (manual) Ovalocytes [place] Cells Sodium Potassium Chloride Carbon Dioxide Anion Gap BUN Creatinine Est GFR ( Amer) Est GFR (Non-Af Amer) POC Glucose (mg/dL) 164 H Random Glucose Calcium Total Bilirubin AST ALT Alkaline Phosphatase Total Protein Albumin Globulin Albumin/Globulin Ratio RPR
--- NOTE | 2017-07-11 18:32 | CP.PCM.PN ---
Subjective - Date & Time of Evaluation Date of Evaluation: 07/11/17 Time of Evaluation: 18:31 - Subjective Subjective: TYPED CONSULTATION NOW IS BY MISTAKE DOES NOT BELONG TO HER PLEASE IGNORE HER FOLLOW UP NOTES WILL BE DICTATED Objective - Vital Signs/Intake and Output Vital Signs (last 24 hours): Temp Pulse Resp BP Pulse Ox 97.9 F 97 H 20 141/97 H 98 07/11/17 16:35 07/11/17 16:35 07/11/17 16:35 07/11/17 16:35 07/11/17 16:35 Intake and Output: 07/11/17 07/11/17 06:59 18:59 Intake Total 650 600 Output Total 500 200 Balance 150 400 - Medications Medications: Current Medications Acetaminophen (Tylenol 325mg Tab) 325 mg PO Q6 [facility] Last Admin: 07/11/17 18:03 Dose: 325 mg Clopidogrel Bisulfate (Plavix) 75 mg PO DAILY [facility] Last Admin: 07/11/17 09:54 Dose: 75 mg Docusate Sodium (Colace) 100 mg PO DAILY [facility] Last Admin: 07/11/17 09:54 Dose: 100 mg Famotidine (Pepcid) 20 mg PO DAILY [facility] Last Admin: 07/11/17 09:55 Dose: 20 mg Folic Acid (Folic Acid) 1 mg PO DAILY [facility] Last Admin: 07/11/17 09:55 Dose: 1 mg Guaifenesin/Dextromethorphan (Robitussin Dm) 5 ml PO Q4H PRN PRN Reason: Cough Last Admin: 07/11/17 09:54 Dose: 5 ml Aztreonam 2 gm/ Sodium (Chloride) 100 mls @ 200 mls/hr IVPB Q12H [facility] Last Admin: 07/11/17 06:27 Dose: 200 mls/hr Metronidazole (Flagyl) 500 mg in 100 mls @ 100 mls/hr IVPB Q12H [facility] Last Admin: 07/11/17 17:58 Dose: 100 mls/hr Vancomycin HCl 1 gm/ Sodium (Chloride) 200 mls @ 166.7 mls/hr IVPB Q24H [facility] Last Admin: 07/11/17 09:00 Dose: 166.7 mls/hr Insulin Aspart (Novolog) 0 unit SC Q6 [facility] PRN Reason: Protocol Last Admin: 07/11/17 17:57 Dose: 2 unit Methylprednisolone (Solu-Medrol) 40 mg IVP Q8 [facility] Last Admin: 07/11/17 13:59 Dose: 40 mg Metoprolol Succinate (Toprol Xl) 12.5 mg PO Q12 [facility] Last Admin: 07/11/17 09:55 Dose: 12.5 mg Montelukast Sodium (Singulair) 10 mg PO DAILY [facility] Last Admin: 07/11/17 09:55 Dose: 10 mg Potassium Chloride (Klor-Con 10) 10 meq PO DAILY [facility] Last Admin: 07/11/17 09:55 Dose: 10 meq Rosuvastatin Calcium (Crestor) 10 mg PO HS [facility] Last Admin: 07/10/17 21:16 Dose: 10 mg Sennosides (Senokot Tab) 8.6 mg PO BID [facility] Last Admin: 07/11/17 17:57 Dose: 8.6 mg - Labs Labs: 07/11/17 11:14 07/11/17 11:14 PT 13.6 SECONDS (9.7-12.2) H 07/06/17 11:09 INR 1.2 07/06/17 11:09 APTT 24 SECONDS (21-34) 07/06/17 11:09
--- NOTE | 2017-07-11 18:36 | CP.PCM.PN ---
Subjective - Date & Time of Evaluation Date of Evaluation: 07/11/17 Time of Evaluation: 09:00 - Subjective Subjective: afeb on vanco/azqactam hx of recurrent pneumonia iv rx in progress Dr Valerio on board cultures neg thus far except urine Objective - Vital Signs/Intake and Output Vital Signs (last 24 hours): Temp Pulse Resp BP Pulse Ox 97.9 F 97 H 20 141/97 H 98 07/11/17 16:35 07/11/17 16:35 07/11/17 16:35 07/11/17 16:35 07/11/17 16:35 Intake and Output: 07/11/17 07/11/17 06:59 18:59 Intake Total 650 600 Output Total 500 200 Balance 150 400 - Medications Medications: Current Medications Acetaminophen (Tylenol 325mg Tab) 325 mg PO Q6 [facility] Last Admin: 07/11/17 18:03 Dose: 325 mg Clopidogrel Bisulfate (Plavix) 75 mg PO DAILY [facility] Last Admin: 07/11/17 09:54 Dose: 75 mg Docusate Sodium (Colace) 100 mg PO DAILY [facility] Last Admin: 07/11/17 09:54 Dose: 100 mg Famotidine (Pepcid) 20 mg PO DAILY [facility] Last Admin: 07/11/17 09:55 Dose: 20 mg Folic Acid (Folic Acid) 1 mg PO DAILY [facility] Last Admin: 07/11/17 09:55 Dose: 1 mg Guaifenesin/Dextromethorphan (Robitussin Dm) 5 ml PO Q4H PRN PRN Reason: Cough Last Admin: 07/11/17 09:54 Dose: 5 ml Aztreonam 2 gm/ Sodium (Chloride) 100 mls @ 200 mls/hr IVPB Q12H [facility] Last Admin: 07/11/17 06:27 Dose: 200 mls/hr Metronidazole (Flagyl) 500 mg in 100 mls @ 100 mls/hr IVPB Q12H [facility] Last Admin: 07/11/17 17:58 Dose: 100 mls/hr Vancomycin HCl 1 gm/ Sodium (Chloride) 200 mls @ 166.7 mls/hr IVPB Q24H [facility] Last Admin: 07/11/17 09:00 Dose: 166.7 mls/hr Insulin Aspart (Novolog) 0 unit SC Q6 [facility] PRN Reason: Protocol Last Admin: 07/11/17 17:57 Dose: 2 unit Methylprednisolone (Solu-Medrol) 40 mg IVP Q8 [facility] Last Admin: 07/11/17 13:59 Dose: 40 mg Metoprolol Succinate (Toprol Xl) 12.5 mg PO Q12 [facility] Last Admin: 07/11/17 09:55 Dose: 12.5 mg Montelukast Sodium (Singulair) 10 mg PO DAILY [facility] Last Admin: 07/11/17 09:55 Dose: 10 mg Potassium Chloride (Klor-Con 10) 10 meq PO DAILY [facility] Last Admin: 07/11/17 09:55 Dose: 10 meq Rosuvastatin Calcium (Crestor) 10 mg PO HS [facility] Last Admin: 07/10/17 21:16 Dose: 10 mg Sennosides (Senokot Tab) 8.6 mg PO BID [facility] Last Admin: 07/11/17 17:57 Dose: 8.6 mg - Labs Labs: 07/11/17 11:14 07/11/17 11:14 PT 13.6 SECONDS (9.7-12.2) H 07/06/17 11:09 INR 1.2 07/06/17 11:09 APTT 24 SECONDS (21-34) 07/06/17 11:09 - Constitutional Appears: Confused, Chronically Ill - Head Exam Head Exam: NORMOCEPHALIC - Eye Exam Eye Exam: PERRL - ENT Exam ENT Exam: Mucous Membranes Dry - Neck Exam Neck Exam: absent: Lymphadenopathy - Respiratory Exam Respiratory Exam: Decreased Breath Sounds - Cardiovascular Exam Cardiovascular Exam: REGULAR RHYTHM - GI/Abdominal Exam GI & Abdominal Exam: Distended, Soft - Rectal Exam Rectal Exam: Deferred Assessment and Plan (1) Acute urinary tract infection Status: Acute (2) COPD exacerbation Status: Acute (3) Dehydration symptoms Status: Acute (4) Dyspnea Status: Acute (5) Pneumonia Status: Acute (6) Weakness Status: Acute
--- NOTE | 2017-07-11 22:53 | CP.PCM.PN ---
Subjective - Date & Time of Evaluation Date of Evaluation: 07/11/17 Time of Evaluation: 09:20 - Subjective Subjective: Patient seen and evaluated Not in distress Objective - Vital Signs/Intake and Output Vital Signs (last 24 hours): Temp Pulse Resp BP Pulse Ox 97.9 F 97 H 20 141/97 H 98 07/11/17 16:35 07/11/17 16:35 07/11/17 16:35 07/11/17 16:35 07/11/17 16:35 Intake and Output: 07/11/17 07/12/17 18:59 06:59 Intake Total 600 400 Output Total 200 450 Balance 400 -50 - Medications Medications: Current Medications Acetaminophen (Tylenol 325mg Tab) 325 mg PO Q6 [facility] Last Admin: 07/11/17 18:03 Dose: 325 mg Clopidogrel Bisulfate (Plavix) 75 mg PO DAILY [facility] Last Admin: 07/11/17 09:54 Dose: 75 mg Docusate Sodium (Colace) 100 mg PO DAILY [facility] Last Admin: 07/11/17 09:54 Dose: 100 mg Famotidine (Pepcid) 20 mg PO DAILY [facility] Last Admin: 07/11/17 09:55 Dose: 20 mg Folic Acid (Folic Acid) 1 mg PO DAILY [facility] Last Admin: 07/11/17 09:55 Dose: 1 mg Guaifenesin/Dextromethorphan (Robitussin Dm) 5 ml PO Q4H PRN PRN Reason: Cough Last Admin: 07/11/17 09:54 Dose: 5 ml Aztreonam 2 gm/ Sodium (Chloride) 100 mls @ 200 mls/hr IVPB Q12H [facility] Last Admin: 07/11/17 20:00 Dose: 200 mls/hr Vancomycin HCl 1 gm/ Sodium (Chloride) 200 mls @ 166.7 mls/hr IVPB Q24H [facility] Last Admin: 07/11/17 09:00 Dose: 166.7 mls/hr Insulin Aspart (Novolog) 0 unit SC Q6 [facility] PRN Reason: Protocol Last Admin: 07/11/17 17:57 Dose: 2 unit Methylprednisolone (Solu-Medrol) 40 mg IVP Q8 [facility] Last Admin: 07/11/17 21:50 Dose: 40 mg Metoprolol Succinate (Toprol Xl) 12.5 mg PO Q12 [facility] Last Admin: 07/11/17 21:50 Dose: 12.5 mg Montelukast Sodium (Singulair) 10 mg PO DAILY [facility] Last Admin: 07/11/17 09:55 Dose: 10 mg Potassium Chloride (Klor-Con 10) 10 meq PO DAILY [facility] Last Admin: 07/11/17 09:55 Dose: 10 meq Rosuvastatin Calcium (Crestor) 10 mg PO HS [facility] Last Admin: 07/11/17 21:50 Dose: 10 mg Sennosides (Senokot Tab) 8.6 mg PO BID [facility] Last Admin: 07/11/17 17:57 Dose: 8.6 mg - Labs Labs: 07/11/17 11:14 07/11/17 11:14 PT 13.6 SECONDS (9.7-12.2) H 07/06/17 11:09 INR 1.2 07/06/17 11:09 APTT 24 SECONDS (21-34) 07/06/17 11:09 Assessment and Plan - Assessment and Plan (Free Text) Assessment: 1. Dyspnea Pneumonia Vs. Diastolic CHF Check Pro BNP Lasix PRN ECHO: Normal EF 2. HTN controlled 3. Pneumonia Medical management
[2017-07-12] MEDS: (Novolog) Insulin Aspart, Recombinant 100 u/ml 10 ml vial SC SCH ×4 (00:50→18:52)
[2017-07-12] MEDS: MethylPREDNISolone 40 mg Vial IVP SCH ×3 (06:02→21:34)
[2017-07-12] MEDS: Aztreonam 2 GM in Sodium Chloride 0.9% 100 ML IVPB SCH ×2 (06:08→19:09)
[2017-07-12] MEDS: guaiFENesin DM 100 mg-10 mg/5 ml UD PO PRN (06:13)
[2017-07-12 08:01] LABS: BASO % 0.1 % (0.0-2.0); HEMOGLOBIN 9.5 g/dL (11.0-16.0); LYMPH # 0.8 K/uL (1.0-4.3); LYMPH % 4.4 % (20.0-40.0); MEAN CELL VOLUME 98.5 fL (81.0-99.0); MEAN CORPUSCULAR HEMOGLOBIN 32.8 pg (27.0-31.0); MEAN CORPUSCULAR HGB CONC 33.3 g/dL (33.0-37.0); MEAN PLATELET VOLUME 7.4 fL (7.2-11.7); MONO # 0.8 K/uL (0.0-0.8); MONO % 4.3 % (0.0-10.0); NEUT # 17.6 K/uL (1.8-7.0); NEUT % 91.2 % (50.0-75.0); NRBC % 0.7 % (0.0-2.0); PLATELET COUNT 369 K/uL (130-400); RBC 2.89 Mil/uL (3.80-5.20); RED CELL DISTRIBUTION WIDTH 17.4 % (11.5-14.5); WHITE BLOOD COUNT 19.3 K/uL (4.8-10.8)
[2017-07-12 08:09] LABS: ALBUMIN 2.8 g/dL (3.5-5.0); ALT/SGPT 48 U/L (9-52); AST/SGOT 24 U/L (14-36); BLOOD UREA NITROGEN 22 mg/dL (7-17); CALCIUM 8.8 mg/dl (8.6-10.4); GFR AFRICAN-AMERICAN > 60; GFR NON-AFRICAN AMERICAN > 60
[2017-07-12 09:11] LABS: ANISOCYTOSIS SLIGHT; LYMPHOCYTE 5 % (20-40); MONOCYTE 5 % (0-10); NEUTROPHIL 90 % (50-75); PLATELET ESTIMATE NORMAL (NORMAL); TOTAL CELLS COUNTED 100
[2017-07-12 09:12] LABS: HYPOCHROMIC SLIGHT; POLYCHROMIC SLIGHT
[2017-07-12] MEDS: Potassium Chloride 10 mEq ER Tab PO SCH (09:35)
[2017-07-12] MEDS: Metoprolol Succinate 12.5 mg XL PO SCH ×2 (09:36→21:41)
[2017-07-12] MEDS: Albuterol-Ipratrop 3 mg / 0.5 (3 ml) UD INH SCH ×2 (11:30→19:04)
[2017-07-12] MEDS: Acetylcysteine 20% Inhal Soln (4ml) INH SCH ×2 (11:30→19:04)
[2017-07-12] MEDS ORDERED: Acetylcysteine 20% Inhal Soln (4ml) ONE (11:33)
[2017-07-12] MEDS: Vancomycin 1 GM in Sodium Chloride 0.9% 200 ML IVPB SCH (15:51)
--- NOTE | 2017-07-12 16:56 | CP.PCM.PN ---
Subjective - Date & Time of Evaluation Date of Evaluation: 07/12/17 Time of Evaluation: 12:40 - Subjective Subjective: pt clinically same iv abx in progress per dr colette hua and dr newton following Objective - Vital Signs/Intake and Output Vital Signs (last 24 hours): Temp Pulse Resp BP Pulse Ox 97.3 F L 101 H 20 135/90 100 07/12/17 16:00 07/12/17 16:00 07/12/17 16:00 07/12/17 07:30 07/12/17 16:00 Intake and Output: 07/12/17 07/12/17 06:59 18:59 Intake Total 400 340 Output Total 850 Balance -450 340 - Medications Medications: Current Medications Acetaminophen (Tylenol 325mg Tab) 325 mg PO Q6 [facility] Last Admin: 07/12/17 12:48 Dose: 325 mg Acetylcysteine (Acetylcysteine 20%) 4 ml INH RQ6 [facility] Last Admin: 07/12/17 11:30 Dose: 4 ml Albuterol/Ipratropium (Duoneb 3 Mg/0.5 Mg (3 Ml) Ud) 3 ml INH RQ6 [facility] Last Admin: 07/12/17 11:30 Dose: 3 ml Clopidogrel Bisulfate (Plavix) 75 mg PO DAILY [facility] Last Admin: 07/12/17 09:36 Dose: 75 mg Docusate Sodium (Colace) 100 mg PO DAILY [facility] Last Admin: 07/12/17 09:34 Dose: 100 mg Famotidine (Pepcid) 20 mg PO DAILY [facility] Last Admin: 07/12/17 09:36 Dose: 20 mg Folic Acid (Folic Acid) 1 mg PO DAILY [facility] Last Admin: 07/12/17 09:34 Dose: 1 mg Guaifenesin/Dextromethorphan (Robitussin Dm) 5 ml PO Q4H PRN PRN Reason: Cough Last Admin: 07/12/17 06:13 Dose: 5 ml Aztreonam 2 gm/ Sodium (Chloride) 100 mls @ 200 mls/hr IVPB Q12H [facility] Last Admin: 07/12/17 06:08 Dose: 200 mls/hr Vancomycin HCl 1 gm/ Sodium (Chloride) 200 mls @ 166.7 mls/hr IVPB Q24H [facility] Last Admin: 07/12/17 15:51 Dose: Not Given Insulin Aspart (Novolog) 0 unit SC Q6 [facility] PRN Reason: Protocol Last Admin: 07/12/17 12:49 Dose: 2 unit Methylprednisolone (Solu-Medrol) 40 mg IVP Q8 [facility] Last Admin: 07/12/17 13:10 Dose: 40 mg Metoprolol Succinate (Toprol Xl) 12.5 mg PO Q12 [facility] Last Admin: 07/12/17 09:36 Dose: 12.5 mg Montelukast Sodium (Singulair) 10 mg PO DAILY [facility] Last Admin: 07/12/17 09:45 Dose: 10 mg Potassium Chloride (Klor-Con 10) 10 meq PO DAILY [facility] Last Admin: 07/12/17 09:35 Dose: 10 meq Rosuvastatin Calcium (Crestor) 10 mg PO HS [facility] Last Admin: 07/11/17 21:50 Dose: 10 mg Sennosides (Senokot Tab) 8.6 mg PO BID [facility] Last Admin: 07/12/17 09:37 Dose: Not Given - Labs Labs: 07/12/17 07:47 07/12/17 07:47 PT 13.6 SECONDS (9.7-12.2) H 07/06/17 11:09 INR 1.2 07/06/17 11:09 APTT 24 SECONDS (21-34) 07/06/17 11:09 - Constitutional Appears: No Acute Distress - Head Exam Head Exam: ATRAUMATIC, NORMAL INSPECTION, NORMOCEPHALIC - Eye Exam Eye Exam: EOMI, Normal appearance, PERRL Pupil Exam: NORMAL ACCOMODATION, PERRL - ENT Exam ENT Exam: Mucous Membranes Moist - Neck Exam Neck Exam: Full ROM - Respiratory Exam Respiratory Exam: Decreased Breath Sounds - Cardiovascular Exam Cardiovascular Exam: REGULAR RHYTHM, +S1, +S2 - GI/Abdominal Exam GI & Abdominal Exam: Soft, Diminished Bowel Sounds - Rectal Exam Rectal Exam: Deferred - Neurological Exam Additional comments: [employer] same Assessment and Plan (1) Acute urinary tract infection Status: Acute (2) Allergic urticaria Status: Acute (3) Asthma Status: Acute (4) Asthma exacerbation Status: Acute (5) Bronchitis Status: Acute (6) COPD exacerbation Status: Acute (7) Constipation Status: Acute (8) Dehydration symptoms Status: Acute (9) Dyspnea Status: Acute (10) Dyspnea Status: Acute (11) Influenza Status: Acute (12) Pneumonia Status: Acute (13) Prophylactic measure Status: Acute (14) UTI (urinary tract infection) Status: Acute (15) Weakness Status: Acute (16) GERD (gastroesophageal reflux disease) Status: Chronic (17) HTN (hypertension) Status: Chronic (18) Hyperlipidemia Status: Chronic (19) Hypertension Status: Chronic - Assessment and Plan (Free Text) Plan: efrain iv abx per ID f/u with Dr Hua neuro Dr Newton pulm meds reviewed efrain as ordered supportive care
--- NOTE | 2017-07-12 18:27 | CP.PCM.PN ---
Subjective - Date & Time of Evaluation Date of Evaluation: 07/12/17 Time of Evaluation: 08:00 - Subjective Subjective: still weak bedridden and coughing c/o body aches iv rx in progress Objective - Vital Signs/Intake and Output Vital Signs (last 24 hours): Temp Pulse Resp BP Pulse Ox 97.3 F L 101 H 20 128/82 100 07/12/17 16:00 07/12/17 16:00 07/12/17 16:00 07/12/17 13:00 07/12/17 16:00 Intake and Output: 07/12/17 07/12/17 06:59 18:59 Intake Total 400 740 Output Total 850 350 Balance -450 390 - Medications Medications: Current Medications Acetaminophen (Tylenol 325mg Tab) 325 mg PO Q6 [facility] Last Admin: 07/12/17 12:48 Dose: 325 mg Acetylcysteine (Acetylcysteine 20%) 4 ml INH RQ6 [facility] Last Admin: 07/12/17 11:30 Dose: 4 ml Albuterol/Ipratropium (Duoneb 3 Mg/0.5 Mg (3 Ml) Ud) 3 ml INH RQ6 [facility] Last Admin: 07/12/17 11:30 Dose: 3 ml Clopidogrel Bisulfate (Plavix) 75 mg PO DAILY [facility] Last Admin: 07/12/17 09:36 Dose: 75 mg Docusate Sodium (Colace) 100 mg PO DAILY [facility] Last Admin: 07/12/17 09:34 Dose: 100 mg Famotidine (Pepcid) 20 mg PO DAILY [facility] Last Admin: 07/12/17 09:36 Dose: 20 mg Folic Acid (Folic Acid) 1 mg PO DAILY [facility] Last Admin: 07/12/17 09:34 Dose: 1 mg Guaifenesin/Dextromethorphan (Robitussin Dm) 5 ml PO Q4H PRN PRN Reason: Cough Last Admin: 07/12/17 06:13 Dose: 5 ml Aztreonam 2 gm/ Sodium (Chloride) 100 mls @ 200 mls/hr IVPB Q12H [facility] Last Admin: 07/12/17 06:08 Dose: 200 mls/hr Vancomycin HCl 1 gm/ Sodium (Chloride) 200 mls @ 166.7 mls/hr IVPB Q24H [facility] Last Admin: 07/12/17 15:51 Dose: Not Given Insulin Aspart (Novolog) 0 unit SC Q6 [facility] PRN Reason: Protocol Last Admin: 07/12/17 12:49 Dose: 2 unit Methylprednisolone (Solu-Medrol) 40 mg IVP Q8 [facility] Last Admin: 07/12/17 13:10 Dose: 40 mg Metoprolol Succinate (Toprol Xl) 12.5 mg PO Q12 [facility] Last Admin: 07/12/17 09:36 Dose: 12.5 mg Montelukast Sodium (Singulair) 10 mg PO DAILY [facility] Last Admin: 07/12/17 09:45 Dose: 10 mg Potassium Chloride (Klor-Con 10) 10 meq PO DAILY [facility] Last Admin: 07/12/17 09:35 Dose: 10 meq Rosuvastatin Calcium (Crestor) 10 mg PO HS [facility] Last Admin: 07/11/17 21:50 Dose: 10 mg Sennosides (Senokot Tab) 8.6 mg PO BID [facility] Last Admin: 07/12/17 09:37 Dose: Not Given - Labs Labs: 07/12/17 07:47 07/12/17 07:47 PT 13.6 SECONDS (9.7-12.2) H 07/06/17 11:09 INR 1.2 07/06/17 11:09 APTT 24 SECONDS (21-34) 07/06/17 11:09 - Constitutional Appears: Chronically Ill - Head Exam Head Exam: NORMOCEPHALIC - Eye Exam Eye Exam: absent: Scleral icterus - ENT Exam ENT Exam: Mucous Membranes Dry - Neck Exam Neck Exam: absent: Lymphadenopathy - Respiratory Exam Respiratory Exam: Decreased Breath Sounds, Rhonchi - Cardiovascular Exam Cardiovascular Exam: REGULAR RHYTHM - GI/Abdominal Exam GI & Abdominal Exam: absent: Soft, Tenderness - Exam Exam: NORMAL INSPECTION - Extremities Exam Extremities Exam: Pedal Edema - Back Exam Back Exam: absent: CVA tenderness (L), CVA tenderness (R) Assessment and Plan (1) Acute urinary tract infection Status: Acute (2) COPD exacerbation Status: Acute (3) Dehydration symptoms Status: Acute (4) Dyspnea Status: Acute (5) Pneumonia Status: Acute (6) Weakness Status: Acute - Assessment and Plan (Free Text) Assessment: cont iv antibiotics may need bronchoscopy
--- NOTE | 2017-07-12 18:43 | CP.PCM.PN ---
Subjective - Date & Time of Evaluation Date of Evaluation: 07/12/17 Time of Evaluation: 08:50 - Subjective Subjective: Patient was seen and evaluated. Not using BiPAP this morning. Patient is drowsy. She continues to complain of dizziness. She also reports that breathing and cough have improved. Son is at bedside, and states that patient is less confused than a few days ago. No new complaints. Assessment and Plan: Patient is a 81 y.o F with PMH of asthma, bronchitis, HTN, HLD, GERD, urinary incontinence who presented with shortness of breath requiring BiPAP and cough, most likely due to pneumonia. SOB: -BiPAP as needed -swallow eval to rule out aspiration -Taper Solu-medrol -Continue Duoneb treatments and Singulair -Start Mucomist -On IV abx -Robitussin for cough as needed -Most recent lactate on 07/06 = 2.1 -Procalcitonin on 07/09 = 1.34 -CRP >15 -CXR on 07/07 showed small opacities more prominent at the lower lobe. Hyperinflation of the lungs consistent with the patient's history of COPD -WBC on 07/12 19.3 uptrending from 18.2 on 07/11 UTI: -gram negative rods in urine -On abx AMS: -MRI brain on 07/10 - no acute intracranial abnormality. No MRI evidence for acute [employer] territory infarct. Mild chronic microangiopathic changes and moderate age-related global parenchymal volume loss. Stable 1.5 cm left parietal convexity meningioma. Fluid in the left maxillary and sphenoid sinuses enlarged mastoid effusion may represent acute sinusitis and mastoiditis. -Carotid Doppler on 07/10 unremarkable -Head CT showed no evidence of acute infarct. No ICH. 1.5 cm left frontal extra- axial mass, most likely meningioma. Chronic paranasal sinusitis. Left mastoid effusion and fluid/soft tissue density in left middle ear cavity. -Neuro following, recommends ECHO to rule out cardiac cause for AMS. Toxic metabolic encephalopathy -EEG results pending Objective - Vital Signs/Intake and Output Vital Signs (last 24 hours): Temp Pulse Resp BP Pulse Ox 97.3 F L 101 H 20 128/82 100 07/12/17 16:00 07/12/17 16:00 07/12/17 16:00 07/12/17 13:00 07/12/17 16:00 Intake and Output: 07/12/17 07/12/17 06:59 18:59 Intake Total 400 740 Output Total 850 350 Balance -450 390 - Medications Medications: Current Medications Acetaminophen (Tylenol 325mg Tab) 325 mg PO Q6 [facility] Last Admin: 07/12/17 12:48 Dose: 325 mg Acetylcysteine (Acetylcysteine 20%) 4 ml INH RQ6 [facility] Last Admin: 07/12/17 11:30 Dose: 4 ml Albuterol/Ipratropium (Duoneb 3 Mg/0.5 Mg (3 Ml) Ud) 3 ml INH RQ6 [facility] Last Admin: 07/12/17 11:30 Dose: 3 ml Clopidogrel Bisulfate (Plavix) 75 mg PO DAILY [facility] Last Admin: 07/12/17 09:36 Dose: 75 mg Docusate Sodium (Colace) 100 mg PO DAILY [facility] Last Admin: 07/12/17 09:34 Dose: 100 mg Famotidine (Pepcid) 20 mg PO DAILY [facility] Last Admin: 07/12/17 09:36 Dose: 20 mg Folic Acid (Folic Acid) 1 mg PO DAILY [facility] Last Admin: 07/12/17 09:34 Dose: 1 mg Guaifenesin/Dextromethorphan (Robitussin Dm) 5 ml PO Q4H PRN PRN Reason: Cough Last Admin: 07/12/17 06:13 Dose: 5 ml Vancomycin HCl 1 gm/ Sodium (Chloride) 200 mls @ 166.7 mls/hr IVPB Q24H [facility] Last Admin: 07/12/17 15:51 Dose: Not Given Aztreonam 2 gm/ Sodium (Chloride) 100 mls @ 200 mls/hr IVPB Q8H [facility] Insulin Aspart (Novolog) 0 unit SC Q6 [facility] PRN Reason: Protocol Last Admin: 07/12/17 12:49 Dose: 2 unit Methylprednisolone (Solu-Medrol) 40 mg IVP Q8 [facility] Last Admin: 07/12/17 13:10 Dose: 40 mg Metoprolol Succinate (Toprol Xl) 12.5 mg PO Q12 [facility] Last Admin: 07/12/17 09:36 Dose: 12.5 mg Montelukast Sodium (Singulair) 10 mg PO DAILY [facility] Last Admin: 07/12/17 09:45 Dose: 10 mg Potassium Chloride (Klor-Con 10) 10 meq PO DAILY [facility] Last Admin: 07/12/17 09:35 Dose: 10 meq Rosuvastatin Calcium (Crestor) 10 mg PO HS [facility] Last Admin: 07/11/17 21:50 Dose: 10 mg Sennosides (Senokot Tab) 8.6 mg PO BID [facility] Last Admin: 07/12/17 09:37 Dose: Not Given - Labs Labs: 07/12/17 07:47 07/12/17 07:47 PT 13.6 SECONDS (9.7-12.2) H 07/06/17 11:09 INR 1.2 07/06/17 11:09 APTT 24 SECONDS (21-34) 07/06/17 11:09 Assessment and Plan (1) Pneumonia Status: Acute (2) UTI (urinary tract infection) Status: Acute (3) Asthma exacerbation Status: Acute
[2017-07-13] MEDS: (Novolog) Insulin Aspart, Recombinant 100 u/ml 10 ml vial SC SCH ×4 (00:04→18:26)
[2017-07-13] MEDS: Acetylcysteine 20% Inhal Soln (4ml) INH SCH ×4 (02:46→19:49)
[2017-07-13] MEDS: Albuterol-Ipratrop 3 mg / 0.5 (3 ml) UD INH SCH ×4 (02:47→19:49)
[2017-07-13] MEDS: Aztreonam 2 GM in Sodium Chloride 0.9% 100 ML IVPB SCH ×3 (02:56→18:27)
[2017-07-13] MEDS: guaiFENesin DM 100 mg-10 mg/5 ml UD PO PRN ×3 (03:59→14:35)
[2017-07-13] MEDS: MethylPREDNISolone 40 mg Vial IVP SCH ×3 (05:33→21:22)
[2017-07-13] MEDS: Vancomycin 1 GM in Sodium Chloride 0.9% 200 ML IVPB SCH (08:30)
[2017-07-13] MEDS: Metoprolol Succinate 12.5 mg XL PO SCH ×2 (10:10→21:28)
[2017-07-13] MEDS: Potassium Chloride 10 mEq ER Tab PO SCH (10:10)
--- NOTE | 2017-07-13 10:13 | CP.PCM.PN ---
Subjective - Date & Time of Evaluation Date of Evaluation: 07/13/17 Time of Evaluation: 08:20 - Subjective Subjective: the patient seen and examined Still short of breath and congested On BiPAP at night Afebrile Awake and responsive Patient states she is unable to bring up phlegm Objective - Vital Signs/Intake and Output Vital Signs (last 24 hours): Temp Pulse Resp BP Pulse Ox 97.3 F L 102 H 26 H 136/87 94 L 07/13/17 07:21 07/13/17 07:21 07/13/17 07:21 07/13/17 07:21 07/13/17 07:21 Intake and Output: 07/13/17 07/13/17 06:59 18:59 Intake Total 500 Output Total 800 Balance -300 - Medications Medications: Current Medications Acetaminophen (Tylenol 325mg Tab) 325 mg PO Q6 [facility] Last Admin: 07/13/17 05:34 Dose: 325 mg Acetylcysteine (Acetylcysteine 20%) 4 ml INH RQ6 [facility] Last Admin: 07/13/17 02:46 Dose: 4 ml Albuterol/Ipratropium (Duoneb 3 Mg/0.5 Mg (3 Ml) Ud) 3 ml INH RQ6 [facility] Last Admin: 07/13/17 02:47 Dose: 3 ml Clopidogrel Bisulfate (Plavix) 75 mg PO DAILY [facility] Last Admin: 07/12/17 09:36 Dose: 75 mg Docusate Sodium (Colace) 100 mg PO DAILY [facility] Last Admin: 07/12/17 09:34 Dose: 100 mg Famotidine (Pepcid) 20 mg PO DAILY [facility] Last Admin: 07/12/17 09:36 Dose: 20 mg Folic Acid (Folic Acid) 1 mg PO DAILY [facility] Last Admin: 07/12/17 09:34 Dose: 1 mg Guaifenesin/Dextromethorphan (Robitussin Dm) 5 ml PO Q4H PRN PRN Reason: Cough Last Admin: 07/13/17 03:59 Dose: 5 ml Aztreonam 2 gm/ Sodium (Chloride) 100 mls @ 200 mls/hr IVPB Q8H [facility] Last Admin: 07/13/17 02:56 Dose: 200 mls/hr Insulin Aspart (Novolog) 0 unit SC Q6 [facility] PRN Reason: Protocol Last Admin: 02/23/18 06:05 Dose: 2 unit Methylprednisolone (Solu-Medrol) 40 mg IVP Q8 [facility] Last Admin: 07/13/17 05:33 Dose: 40 mg Metoprolol Succinate (Toprol Xl) 12.5 mg PO Q12 [facility] Last Admin: 07/12/17 21:41 Dose: 12.5 mg Montelukast Sodium (Singulair) 10 mg PO DAILY [facility] Last Admin: 07/12/17 09:45 Dose: 10 mg Potassium Chloride (Klor-Con 10) 10 meq PO DAILY [facility] Last Admin: 07/12/17 09:35 Dose: 10 meq Rosuvastatin Calcium (Crestor) 10 mg PO HS [facility] Last Admin: 07/12/17 21:34 Dose: 10 mg Sennosides (Senokot Tab) 8.6 mg PO BID [facility] Last Admin: 07/12/17 18:58 Dose: Not Given - Labs Labs: 07/12/17 07:47 07/12/17 07:47 PT 13.6 SECONDS (9.7-12.2) H 07/06/17 11:09 INR 1.2 07/06/17 11:09 APTT 24 SECONDS (21-34) 07/06/17 11:09 - Head Exam Head Exam: ATRAUMATIC, NORMOCEPHALIC - ENT Exam ENT Exam: Mucous Membranes Moist - Neck Exam Neck Exam: Normal Inspection - Respiratory Exam Respiratory Exam: Rhonchi, Wheezes - Cardiovascular Exam Cardiovascular Exam: REGULAR RHYTHM - GI/Abdominal Exam GI & Abdominal Exam: Soft, Normal Bowel Sounds Assessment and Plan (1) Pneumonia Assessment & Plan: continue antibiotics Continue nebulizer treatment and Mucomyst Stopped cough medicine/DM IV steroids BiPAP Status: Acute (2) UTI (urinary tract infection) Status: Acute (3) Asthma exacerbation Status: Acute
--- NOTE | 2017-07-13 18:29 | CP.PCM.PN ---
Subjective - Date & Time of Evaluation Date of Evaluation: 07/13/17 Time of Evaluation: 09:00 - Subjective Subjective: IV rx renewed no sputum cultures available cont rx as per Dr Valerio Objective - Vital Signs/Intake and Output Vital Signs (last 24 hours): Temp Pulse Resp BP Pulse Ox 98.0 F 105 H 20 125/87 100 07/13/17 16:03 07/13/17 17:00 07/13/17 16:03 07/13/17 16:03 07/13/17 16:03 Intake and Output: 07/13/17 07/13/17 06:59 18:59 Intake Total 500 400 Output Total 800 1100 Balance -300 -700 - Medications Medications: Current Medications Acetaminophen (Tylenol 325mg Tab) 325 mg PO Q6 [facility] Last Admin: 07/13/17 18:25 Dose: 325 mg Acetylcysteine (Acetylcysteine 20%) 4 ml INH RQ6 [facility] Last Admin: 07/13/17 13:45 Dose: Not Given Albuterol/Ipratropium (Duoneb 3 Mg/0.5 Mg (3 Ml) Ud) 3 ml INH RQ6 [facility] Last Admin: 07/13/17 13:44 Dose: 3 ml Clopidogrel Bisulfate (Plavix) 75 mg PO DAILY [facility] Last Admin: 07/13/17 10:11 Dose: 75 mg Docusate Sodium (Colace) 100 mg PO DAILY [facility] Last Admin: 07/13/17 10:11 Dose: 100 mg Famotidine (Pepcid) 20 mg PO DAILY [facility] Last Admin: 07/13/17 10:11 Dose: 20 mg Folic Acid (Folic Acid) 1 mg PO DAILY [facility] Last Admin: 07/13/17 10:10 Dose: 1 mg Guaifenesin/Dextromethorphan (Robitussin Dm) 5 ml PO Q4H PRN PRN Reason: Cough Last Admin: 07/13/17 14:35 Dose: 5 ml Aztreonam 2 gm/ Sodium (Chloride) 100 mls @ 200 mls/hr IVPB Q8H [facility] Last Admin: 07/13/17 18:27 Dose: 200 mls/hr Insulin Aspart (Novolog) 0 unit SC Q6 [facility] PRN Reason: Protocol Last Admin: 07/13/17 18:26 Dose: 2 unit Methylprednisolone (Solu-Medrol) 40 mg IVP Q8 [facility] Last Admin: 07/13/17 13:34 Dose: 40 mg Metoprolol Succinate (Toprol Xl) 12.5 mg PO Q12 [facility] Last Admin: 07/13/17 10:10 Dose: 12.5 mg Montelukast Sodium (Singulair) 10 mg PO DAILY [facility] Last Admin: 07/13/17 10:10 Dose: 10 mg Potassium Chloride (Klor-Con 10) 10 meq PO DAILY [facility] Last Admin: 07/13/17 10:10 Dose: 10 meq Rosuvastatin Calcium (Crestor) 10 mg PO HS [facility] Last Admin: 07/12/17 21:34 Dose: 10 mg Sennosides (Senokot Tab) 8.6 mg PO BID [facility] Last Admin: 07/13/17 18:25 Dose: 8.6 mg - Labs Labs: 07/12/17 07:47 07/12/17 07:47 PT 13.6 SECONDS (9.7-12.2) H 07/06/17 11:09 INR 1.2 07/06/17 11:09 APTT 24 SECONDS (21-34) 07/06/17 11:09 Assessment and Plan (1) Acute urinary tract infection Status: Acute (2) COPD exacerbation Status: Acute (3) Dehydration symptoms Status: Acute (4) Dyspnea Status: Acute (5) Pneumonia Status: Acute (6) Weakness Status: Acute
--- NOTE | 2017-07-13 18:44 | CP.PCM.PN ---
Subjective - Date & Time of Evaluation Date of Evaluation: 07/13/17 Time of Evaluation: 11:00 - Subjective Subjective: clinically same Objective - Vital Signs/Intake and Output Vital Signs (last 24 hours): Temp Pulse Resp BP Pulse Ox 98.0 F 105 H 20 125/87 100 07/13/17 16:03 07/13/17 17:00 07/13/17 16:03 07/13/17 16:03 07/13/17 16:03 Intake and Output: 07/13/17 07/13/17 06:59 18:59 Intake Total 500 400 Output Total 800 1100 Balance -300 -700 - Medications Medications: Current Medications Acetaminophen (Tylenol 325mg Tab) 325 mg PO Q6 [facility] Last Admin: 07/13/17 18:25 Dose: 325 mg Acetylcysteine (Acetylcysteine 20%) 4 ml INH RQ6 [facility] Last Admin: 07/13/17 13:45 Dose: Not Given Albuterol/Ipratropium (Duoneb 3 Mg/0.5 Mg (3 Ml) Ud) 3 ml INH RQ6 [facility] Last Admin: 07/13/17 13:44 Dose: 3 ml Clopidogrel Bisulfate (Plavix) 75 mg PO DAILY [facility] Last Admin: 07/13/17 10:11 Dose: 75 mg Docusate Sodium (Colace) 100 mg PO DAILY [facility] Last Admin: 07/13/17 10:11 Dose: 100 mg Famotidine (Pepcid) 20 mg PO DAILY [facility] Last Admin: 07/13/17 10:11 Dose: 20 mg Folic Acid (Folic Acid) 1 mg PO DAILY [facility] Last Admin: 07/13/17 10:10 Dose: 1 mg Guaifenesin/Dextromethorphan (Robitussin Dm) 5 ml PO Q4H PRN PRN Reason: Cough Last Admin: 07/13/17 14:35 Dose: 5 ml Aztreonam 2 gm/ Sodium (Chloride) 100 mls @ 200 mls/hr IVPB Q8H [facility] Last Admin: 07/13/17 18:27 Dose: 200 mls/hr Vancomycin/Sodium Chloride (Vancomycin 1 Gm/Ns 200 Ml) 1 gm in 200 mls @ 133.333 mls/hr IVPB Q24H [facility] Stop: 07/18/17 19:01 Insulin Aspart (Novolog) 0 unit SC Q6 [facility] PRN Reason: Protocol Last Admin: 07/13/17 18:26 Dose: 2 unit Methylprednisolone (Solu-Medrol) 40 mg IVP Q8 [facility] Last Admin: 07/13/17 13:34 Dose: 40 mg Metoprolol Succinate (Toprol Xl) 12.5 mg PO Q12 [facility] Last Admin: 07/13/17 10:10 Dose: 12.5 mg Montelukast Sodium (Singulair) 10 mg PO DAILY [facility] Last Admin: 07/13/17 10:10 Dose: 10 mg Potassium Chloride (Klor-Con 10) 10 meq PO DAILY [facility] Last Admin: 07/13/17 10:10 Dose: 10 meq Rosuvastatin Calcium (Crestor) 10 mg PO HS [facility] Last Admin: 07/12/17 21:34 Dose: 10 mg Sennosides (Senokot Tab) 8.6 mg PO BID [facility] Last Admin: 07/13/17 18:25 Dose: 8.6 mg - Labs Labs: 07/12/17 07:47 07/12/17 07:47 PT 13.6 SECONDS (9.7-12.2) H 07/06/17 11:09 INR 1.2 07/06/17 11:09 APTT 24 SECONDS (21-34) 07/06/17 11:09 - Constitutional Appears: Well - Head Exam Head Exam: ATRAUMATIC, NORMAL INSPECTION, NORMOCEPHALIC - Eye Exam Eye Exam: EOMI, Normal appearance, PERRL Pupil Exam: NORMAL ACCOMODATION, PERRL - ENT Exam ENT Exam: Mucous Membranes Moist, Normal Exam - Neck Exam Neck Exam: Full ROM, Normal Inspection. absent: Lymphadenopathy - Respiratory Exam Respiratory Exam: Decreased Breath Sounds - Cardiovascular Exam Cardiovascular Exam: REGULAR RHYTHM, +S1, +S2 - GI/Abdominal Exam GI & Abdominal Exam: Soft, Diminished Bowel Sounds - Rectal Exam Rectal Exam: Deferred Assessment and Plan (1) Acute urinary tract infection Status: Acute (2) Allergic urticaria Status: Acute (3) Asthma Status: Acute (4) Asthma exacerbation Status: Acute (5) Bronchitis Status: Acute (6) COPD exacerbation Status: Acute (7) Constipation Status: Acute (8) Dehydration symptoms Status: Acute (9) Dyspnea Status: Acute (10) Dyspnea Status: Acute (11) Influenza Status: Acute (12) Pneumonia Status: Acute (13) Prophylactic measure Status: Acute (14) UTI (urinary tract infection) Status: Acute (15) Weakness Status: Acute (16) GERD (gastroesophageal reflux disease) Status: Chronic (17) HTN (hypertension) Status: Chronic (18) Hyperlipidemia Status: Chronic (19) Hypertension Status: Chronic
[2017-07-13] MEDS: Vancomycin 1 gm/NS 200 ml 1 GM/200 ML BAG IVPB SCH (20:54)
[2017-07-14] MEDS: (Novolog) Insulin Aspart, Recombinant 100 u/ml 10 ml vial SC SCH ×4 (01:24→17:18)
[2017-07-14] MEDS: Albuterol-Ipratrop 3 mg / 0.5 (3 ml) UD INH SCH ×4 (02:28→20:47)
[2017-07-14] MEDS: Acetylcysteine 20% Inhal Soln (4ml) INH SCH ×4 (02:28→20:47)
[2017-07-14] MEDS: Aztreonam 2 GM in Sodium Chloride 0.9% 100 ML IVPB SCH ×3 (02:45→18:51)
[2017-07-14] MEDS: MethylPREDNISolone 40 mg Vial IVP SCH ×3 (05:23→22:39)
[2017-07-14] MEDS: guaiFENesin DM 100 mg-10 mg/5 ml UD PO PRN ×4 (05:23→22:39)
[2017-07-14] MEDS: Potassium Chloride 10 mEq ER Tab PO SCH (09:10)
[2017-07-14] MEDS: Metoprolol Succinate 12.5 mg XL PO SCH ×2 (09:11→22:39)
--- NOTE | 2017-07-14 13:38 | CP.PCM.PN ---
Subjective - Date & Time of Evaluation Date of Evaluation: 07/14/17 Time of Evaluation: 10:00 - Subjective Subjective: patient seen and examined Awake and responsive Less congested Afebrile On antibiotics Objective - Vital Signs/Intake and Output Vital Signs (last 24 hours): Temp Pulse Resp BP Pulse Ox 98.0 F 111 H 20 118/79 99 07/14/17 09:15 07/14/17 09:15 07/14/17 09:15 07/14/17 09:15 07/14/17 09:15 Intake and Output: 07/14/17 07/14/17 06:59 18:59 Intake Total 800 Output Total 1400 Balance -600 - Medications Medications: Current Medications Acetaminophen (Tylenol 325mg Tab) 325 mg PO Q6 [facility] Last Admin: 07/14/17 12:15 Dose: 325 mg Acetylcysteine (Acetylcysteine 20%) 4 ml INH RQ6 [facility] Last Admin: 07/14/17 13:15 Dose: 4 ml Albuterol/Ipratropium (Duoneb 3 Mg/0.5 Mg (3 Ml) Ud) 3 ml INH RQ6 [facility] Last Admin: 07/14/17 13:15 Dose: 3 ml Clopidogrel Bisulfate (Plavix) 75 mg PO DAILY [facility] Last Admin: 07/14/17 09:11 Dose: 75 mg Docusate Sodium (Colace) 100 mg PO DAILY [facility] Last Admin: 07/14/17 09:11 Dose: 100 mg Famotidine (Pepcid) 20 mg PO DAILY [facility] Last Admin: 07/14/17 09:11 Dose: 20 mg Folic Acid (Folic Acid) 1 mg PO DAILY [facility] Last Admin: 07/14/17 09:11 Dose: 1 mg Guaifenesin/Dextromethorphan (Robitussin Dm) 5 ml PO Q4H PRN PRN Reason: Cough Last Admin: 07/14/17 09:10 Dose: 5 ml Aztreonam 2 gm/ Sodium (Chloride) 100 mls @ 200 mls/hr IVPB Q8H [facility] Last Admin: 07/14/17 10:49 Dose: 200 mls/hr Vancomycin/Sodium Chloride (Vancomycin 1 Gm/Ns 200 Ml) 1 gm in 200 mls @ 133.333 mls/hr IVPB Q24H [facility] Stop: 07/18/17 19:01 Last Admin: 07/13/17 20:54 Dose: 133.333 mls/hr Insulin Aspart (Novolog) 0 unit SC Q6 [facility] PRN Reason: Protocol Last Admin: 07/14/17 12:15 Dose: 3 unit Methylprednisolone (Solu-Medrol) 40 mg IVP Q8 [facility] Last Admin: 07/14/17 05:23 Dose: 40 mg Metoprolol Succinate (Toprol Xl) 12.5 mg PO Q12 [facility] Last Admin: 07/14/17 09:11 Dose: 12.5 mg Montelukast Sodium (Singulair) 10 mg PO DAILY [facility] Last Admin: 07/14/17 09:11 Dose: 10 mg Potassium Chloride (Klor-Con 10) 10 meq PO DAILY [facility] Last Admin: 07/14/17 09:10 Dose: 10 meq Rosuvastatin Calcium (Crestor) 10 mg PO HS [facility] Last Admin: 07/13/17 21:22 Dose: 10 mg Sennosides (Senokot Tab) 8.6 mg PO BID [facility] Last Admin: 07/14/17 09:10 Dose: 8.6 mg - Labs Labs: 07/12/17 07:47 07/12/17 07:47 PT 13.6 SECONDS (9.7-12.2) H 07/06/17 11:09 INR 1.2 07/06/17 11:09 APTT 24 SECONDS (21-34) 07/06/17 11:09 - Head Exam Head Exam: ATRAUMATIC, NORMOCEPHALIC - ENT Exam ENT Exam: Mucous Membranes Moist - Neck Exam Neck Exam: Normal Inspection - Respiratory Exam Respiratory Exam: Rhonchi - Cardiovascular Exam Cardiovascular Exam: REGULAR RHYTHM Assessment and Plan (1) Pneumonia Assessment & Plan: Continue antibiotics as per infectious disease Continue nebulizer treatment Bronchoscopy if no improvement IV steroids Status: Acute (2) UTI (urinary tract infection) Status: Acute (3) Asthma exacerbation Status: Acute
--- NOTE | 2017-07-14 16:47 | CP.PCM.PN ---
Subjective - Date & Time of Evaluation Date of Evaluation: 07/14/17 Time of Evaluation: 10:20 - Subjective Subjective: clinically same Objective - Vital Signs/Intake and Output Vital Signs (last 24 hours): Temp Pulse Resp BP Pulse Ox 98.0 F 102 H 20 118/79 99 07/14/17 09:15 07/14/17 16:24 07/14/17 09:15 07/14/17 09:15 07/14/17 09:15 Intake and Output: 07/14/17 07/14/17 06:59 18:59 Intake Total 800 350 Output Total 1400 300 Balance -600 50 - Medications Medications: Current Medications Acetaminophen (Tylenol 325mg Tab) 325 mg PO Q6 [facility] Last Admin: 07/14/17 12:15 Dose: 325 mg Acetylcysteine (Acetylcysteine 20%) 4 ml INH RQ6 [facility] Last Admin: 07/14/17 13:15 Dose: 4 ml Albuterol/Ipratropium (Duoneb 3 Mg/0.5 Mg (3 Ml) Ud) 3 ml INH RQ6 [facility] Last Admin: 07/14/17 13:15 Dose: 3 ml Clopidogrel Bisulfate (Plavix) 75 mg PO DAILY [facility] Last Admin: 07/14/17 09:11 Dose: 75 mg Docusate Sodium (Colace) 100 mg PO DAILY [facility] Last Admin: 07/14/17 09:11 Dose: 100 mg Famotidine (Pepcid) 20 mg PO DAILY [facility] Last Admin: 07/14/17 09:11 Dose: 20 mg Folic Acid (Folic Acid) 1 mg PO DAILY [facility] Last Admin: 07/14/17 09:11 Dose: 1 mg Guaifenesin/Dextromethorphan (Robitussin Dm) 5 ml PO Q4H PRN PRN Reason: Cough Last Admin: 07/14/17 09:10 Dose: 5 ml Aztreonam 2 gm/ Sodium (Chloride) 100 mls @ 200 mls/hr IVPB Q8H [facility] Last Admin: 07/14/17 10:49 Dose: 200 mls/hr Vancomycin/Sodium Chloride (Vancomycin 1 Gm/Ns 200 Ml) 1 gm in 200 mls @ 133.333 mls/hr IVPB Q24H [facility] Stop: 07/18/17 19:01 Last Admin: 07/13/17 20:54 Dose: 133.333 mls/hr Insulin Aspart (Novolog) 0 unit SC Q6 [facility] PRN Reason: Protocol Last Admin: 07/14/17 12:15 Dose: 3 unit Methylprednisolone (Solu-Medrol) 40 mg IVP Q8 [facility] Last Admin: 07/14/17 13:41 Dose: 40 mg Metoprolol Succinate (Toprol Xl) 12.5 mg PO Q12 [facility] Last Admin: 07/14/17 09:11 Dose: 12.5 mg Montelukast Sodium (Singulair) 10 mg PO DAILY [facility] Last Admin: 07/14/17 09:11 Dose: 10 mg Potassium Chloride (Klor-Con 10) 10 meq PO DAILY [facility] Last Admin: 07/14/17 09:10 Dose: 10 meq Rosuvastatin Calcium (Crestor) 10 mg PO HS [facility] Last Admin: 07/13/17 21:22 Dose: 10 mg Sennosides (Senokot Tab) 8.6 mg PO BID [facility] Last Admin: 07/14/17 09:10 Dose: 8.6 mg - Labs Labs: 07/12/17 07:47 07/12/17 07:47 PT 13.6 SECONDS (9.7-12.2) H 07/06/17 11:09 INR 1.2 07/06/17 11:09 APTT 24 SECONDS (21-34) 07/06/17 11:09 - Constitutional Appears: Well - Head Exam Head Exam: ATRAUMATIC, NORMAL INSPECTION, NORMOCEPHALIC - Eye Exam Eye Exam: EOMI, Normal appearance, PERRL Pupil Exam: NORMAL ACCOMODATION, PERRL - ENT Exam ENT Exam: Mucous Membranes Moist, Normal Exam - Neck Exam Neck Exam: Full ROM, Normal Inspection. absent: Lymphadenopathy - Respiratory Exam Respiratory Exam: Decreased Breath Sounds - Cardiovascular Exam Cardiovascular Exam: REGULAR RHYTHM, +S1, +S2 - GI/Abdominal Exam GI & Abdominal Exam: Soft, Diminished Bowel Sounds - Rectal Exam Rectal Exam: Deferred Assessment and Plan (1) Acute urinary tract infection Status: Acute (2) Allergic urticaria Status: Acute (3) Asthma Status: Acute (4) Asthma exacerbation Status: Acute (5) Bronchitis Status: Acute (6) COPD exacerbation Status: Acute (7) Constipation Status: Acute (8) Dehydration symptoms Status: Acute (9) Dyspnea Status: Acute (10) Dyspnea Status: Acute (11) Influenza Status: Acute (12) Pneumonia Status: Acute (13) Prophylactic measure Status: Acute (14) UTI (urinary tract infection) Status: Acute (15) Weakness Status: Acute (16) GERD (gastroesophageal reflux disease) Status: Chronic (17) HTN (hypertension) Status: Chronic (18) Hyperlipidemia Status: Chronic (19) Hypertension Status: Chronic
[2017-07-14] MEDS: Vancomycin 1 gm/NS 200 ml 1 GM/200 ML BAG IVPB SCH (20:45)
[2017-07-15] MEDS: (Novolog) Insulin Aspart, Recombinant 100 u/ml 10 ml vial SC SCH ×4 (00:29→18:12)
[2017-07-15] MEDS: Aztreonam 2 GM in Sodium Chloride 0.9% 100 ML IVPB SCH ×3 (02:30→18:13)
[2017-07-15] MEDS: Acetylcysteine 20% Inhal Soln (4ml) INH SCH ×4 (03:09→19:55)
[2017-07-15] MEDS: Albuterol-Ipratrop 3 mg / 0.5 (3 ml) UD INH SCH ×4 (03:09→19:57)
--- NOTE | 2017-07-15 06:27 | PCM.URO ---
Urology Progress Note - Objective Lab Studies: Reviewed (see previous dictated notes no gu change for now) Lab Results Last 24 Hours: Laboratory Results - last 24 hr 07/14/17 07/14/17 07/14/17 06:42 11:41 16:44 POC Glucose (mg/dL) 234 H 239 H 245 H 07/14/17 07/15/17 21:22 00:28 POC Glucose (mg/dL) 248 H 217 H Intake & Output: Intake & Output 07/14/17 07/14/17 07/15/17 06:59 18:59 06:59 Intake Total 800 350 Output Total 1400 300 550 Balance -600 50 -550 Intake: Intake, IV Amount 400 100 Left Upper arm 400 100 Oral 400 250 Output: Urine 1400 300 550 Urethral ([place]) 1400 300 550 Other: # Bowel Movements 0 0 Vital Signs: Vital Signs - 24 hr 07/14/17 07/14/17 07/14/17 09:15 16:24 16:54 Temperature 98.0 F 98.0 F Pulse Rate 111 H 102 H 105 H Respiratory 20 20 Rate Blood Pressure 118/79 126/84 O2 Sat by Pulse 99 99 Oximetry 07/14/17 07/15/17 23:55 01:00 Temperature 98.1 F Pulse Rate 107 H 102 H Respiratory 20 Rate Blood Pressure 122/52 L O2 Sat by Pulse 99 Oximetry
[2017-07-15] MEDS: MethylPREDNISolone 40 mg Vial IVP SCH ×3 (06:49→22:35)
[2017-07-15] MEDS: Potassium Chloride 10 mEq ER Tab PO SCH (09:46)
[2017-07-15] MEDS: guaiFENesin DM 100 mg-10 mg/5 ml UD PO PRN ×3 (09:46→22:35)
[2017-07-15] MEDS: Metoprolol Succinate 12.5 mg XL PO SCH ×2 (09:46→22:35)
[2017-07-15 10:09] LABS: CK-MB 4.44 ng/mL (0.0-3.38); TROPONIN I 0.076 ng/mL (0.00-0.120)
--- NOTE | 2017-07-15 14:14 | CP.PCM.PN ---
Subjective - Date & Time of Evaluation Date of Evaluation: 07/15/17 Time of Evaluation: 11:40 - Subjective Subjective: patient seen and examined Less congested and short of breath Unable to bring up phlegm Afebrile No chest pain Fair appetite Continue nebulizer treatment, IV steroids Continue antibiotics Objective - Vital Signs/Intake and Output Vital Signs (last 24 hours): Temp Pulse Resp BP Pulse Ox 98.0 F 106 H 20 120/78 99 07/15/17 09:39 07/15/17 09:39 07/15/17 09:39 07/15/17 09:47 07/15/17 09:39 Intake and Output: 07/15/17 07/15/17 06:59 18:59 Output Total 550 Balance -550 - Medications Medications: Current Medications Acetaminophen (Tylenol 325mg Tab) 325 mg PO Q6 [facility] Last Admin: 07/15/17 12:50 Dose: 325 mg Acetylcysteine (Acetylcysteine 20%) 4 ml INH RQ6 [facility] Last Admin: 07/15/17 13:01 Dose: Not Given Albuterol/Ipratropium (Duoneb 3 Mg/0.5 Mg (3 Ml) Ud) 3 ml INH RQ6 [facility] Last Admin: 07/15/17 13:04 Dose: 3 ml Clopidogrel Bisulfate (Plavix) 75 mg PO DAILY [facility] Last Admin: 07/15/17 09:46 Dose: 75 mg Docusate Sodium (Colace) 100 mg PO DAILY [facility] Last Admin: 07/15/17 09:46 Dose: 100 mg Famotidine (Pepcid) 20 mg PO DAILY [facility] Last Admin: 07/15/17 09:46 Dose: 20 mg Folic Acid (Folic Acid) 1 mg PO DAILY [facility] Last Admin: 07/15/17 09:46 Dose: 1 mg Furosemide (Lasix) 40 mg IVP DAILY [facility] Last Admin: 07/15/17 09:47 Dose: 40 mg Guaifenesin/Dextromethorphan (Robitussin Dm) 5 ml PO Q4H PRN PRN Reason: Cough Last Admin: 07/15/17 09:46 Dose: 5 ml Aztreonam 2 gm/ Sodium (Chloride) 100 mls @ 200 mls/hr IVPB Q8H [facility] Last Admin: 07/15/17 12:00 Dose: 200 mls/hr Vancomycin/Sodium Chloride (Vancomycin 1 Gm/Ns 200 Ml) 1 gm in 200 mls @ 133.333 mls/hr IVPB Q24H [facility] Stop: 07/18/17 19:01 Last Admin: 07/14/17 20:45 Dose: 133.333 mls/hr Insulin Aspart (Novolog) 0 unit SC Q6 [facility] PRN Reason: Protocol Last Admin: 07/15/17 12:05 Dose: 4 unit Methylprednisolone (Solu-Medrol) 40 mg IVP Q8 [facility] Last Admin: 07/15/17 13:50 Dose: 40 mg Metoprolol Succinate (Toprol Xl) 12.5 mg PO Q12 [facility] Last Admin: 07/15/17 09:46 Dose: 12.5 mg Montelukast Sodium (Singulair) 10 mg PO DAILY [facility] Last Admin: 07/15/17 09:46 Dose: 10 mg Potassium Chloride (Klor-Con 10) 10 meq PO DAILY [facility] Last Admin: 07/15/17 09:46 Dose: 10 meq Rosuvastatin Calcium (Crestor) 10 mg PO HS [facility] Last Admin: 07/14/17 22:39 Dose: 10 mg Sennosides (Senokot Tab) 8.6 mg PO BID [facility] Last Admin: 07/15/17 09:46 Dose: 8.6 mg - Labs Labs: 07/12/17 07:47 07/12/17 07:47 PT 13.6 SECONDS (9.7-12.2) H 07/06/17 11:09 INR 1.2 07/06/17 11:09 APTT 24 SECONDS (21-34) 07/06/17 11:09 Assessment and Plan (1) Pneumonia Status: Acute (2) UTI (urinary tract infection) Status: Acute (3) Asthma exacerbation Status: Acute
--- NOTE | 2017-07-15 14:59 | CP.PCM.PN ---
Subjective - Date & Time of Evaluation Date of Evaluation: 07/15/17 Time of Evaluation: 09:00 - Subjective Subjective: improving awake alert less sob no fever Objective - Vital Signs/Intake and Output Vital Signs (last 24 hours): Temp Pulse Resp BP Pulse Ox 98.0 F 106 H 20 120/78 99 07/15/17 09:39 07/15/17 09:39 07/15/17 09:39 07/15/17 09:47 07/15/17 09:39 Intake and Output: 07/15/17 07/15/17 06:59 18:59 Output Total 550 Balance -550 - Medications Medications: Current Medications Acetaminophen (Tylenol 325mg Tab) 325 mg PO Q6 [facility] Last Admin: 07/15/17 12:50 Dose: 325 mg Acetylcysteine (Acetylcysteine 20%) 4 ml INH RQ6 [facility] Last Admin: 07/15/17 07:40 Dose: Not Given Albuterol/Ipratropium (Duoneb 3 Mg/0.5 Mg (3 Ml) Ud) 3 ml INH RQ6 [facility] Last Admin: 07/15/17 13:04 Dose: 3 ml Clopidogrel Bisulfate (Plavix) 75 mg PO DAILY [facility] Last Admin: 07/15/17 09:46 Dose: 75 mg Docusate Sodium (Colace) 100 mg PO DAILY [facility] Last Admin: 07/15/17 09:46 Dose: 100 mg Famotidine (Pepcid) 20 mg PO DAILY [facility] Last Admin: 07/15/17 09:46 Dose: 20 mg Folic Acid (Folic Acid) 1 mg PO DAILY [facility] Last Admin: 07/15/17 09:46 Dose: 1 mg Furosemide (Lasix) 40 mg IVP DAILY [facility] Last Admin: 07/15/17 09:47 Dose: 40 mg Guaifenesin/Dextromethorphan (Robitussin Dm) 5 ml PO Q4H PRN PRN Reason: Cough Last Admin: 07/15/17 09:46 Dose: 5 ml Aztreonam 2 gm/ Sodium (Chloride) 100 mls @ 200 mls/hr IVPB Q8H [facility] Last Admin: 07/15/17 12:00 Dose: 200 mls/hr Vancomycin/Sodium Chloride (Vancomycin 1 Gm/Ns 200 Ml) 1 gm in 200 mls @ 133.333 mls/hr IVPB Q24H [facility] Stop: 07/18/17 19:01 Last Admin: 07/14/17 20:45 Dose: 133.333 mls/hr Insulin Aspart (Novolog) 0 unit SC Q6 [facility] PRN Reason: Protocol Last Admin: 07/15/17 12:05 Dose: 4 unit Methylprednisolone (Solu-Medrol) 40 mg IVP Q8 [facility] Last Admin: 07/15/17 13:50 Dose: 40 mg Metoprolol Succinate (Toprol Xl) 12.5 mg PO Q12 [facility] Last Admin: 07/15/17 09:46 Dose: 12.5 mg Montelukast Sodium (Singulair) 10 mg PO DAILY [facility] Last Admin: 07/15/17 09:46 Dose: 10 mg Potassium Chloride (Klor-Con 10) 10 meq PO DAILY [facility] Last Admin: 07/15/17 09:46 Dose: 10 meq Rosuvastatin Calcium (Crestor) 10 mg PO HS [facility] Last Admin: 07/14/17 22:39 Dose: 10 mg Sennosides (Senokot Tab) 8.6 mg PO BID [facility] Last Admin: 07/15/17 09:46 Dose: 8.6 mg - Labs Labs: 07/12/17 07:47 07/12/17 07:47 PT 13.6 SECONDS (9.7-12.2) H 07/06/17 11:09 INR 1.2 07/06/17 11:09 APTT 24 SECONDS (21-34) 07/06/17 11:09 - Constitutional Appears: Non-toxic, Chronically Ill - Head Exam Head Exam: NORMOCEPHALIC - Eye Exam Eye Exam: PERRL - ENT Exam ENT Exam: Mucous Membranes Dry - Neck Exam Neck Exam: absent: Lymphadenopathy - Respiratory Exam Respiratory Exam: Decreased Breath Sounds - Cardiovascular Exam Cardiovascular Exam: REGULAR RHYTHM - GI/Abdominal Exam GI & Abdominal Exam: Distended, Soft - Rectal Exam Rectal Exam: Deferred - Exam Exam: NORMAL INSPECTION - Extremities Exam Extremities Exam: absent: Pedal Edema - Back Exam Back Exam: absent: CVA tenderness (L), CVA tenderness (R) - Neurological Exam Neurological Exam: Alert, Awake, Oriented x3 - Psychiatric Exam Psychiatric exam: Normal Mood - Skin Skin Exam: Dry Assessment and Plan (1) Acute urinary tract infection Status: Acute (2) COPD exacerbation Status: Acute (3) Dehydration symptoms Status: Acute (4) Dyspnea Status: Acute (5) Pneumonia Status: Acute (6) Weakness Status: Acute - Assessment and Plan (Free Text) Assessment: cont iv rx
--- NOTE | 2017-07-15 16:20 | CP.PCM.PN ---
Subjective - Date & Time of Evaluation Date of Evaluation: 07/15/17 Time of Evaluation: 11:20 - Subjective Subjective: clinically same Objective - Vital Signs/Intake and Output Vital Signs (last 24 hours): Temp Pulse Resp BP Pulse Ox 97.9 F 100 H 20 137/84 99 07/15/17 16:06 07/15/17 16:06 07/15/17 16:06 07/15/17 16:06 07/15/17 16:06 Intake and Output: 07/15/17 07/15/17 06:59 18:59 Intake Total 400 Output Total 550 1550 Balance -550 -1150 - Medications Medications: Current Medications Acetaminophen (Tylenol 325mg Tab) 325 mg PO Q6 [facility] Last Admin: 07/15/17 12:50 Dose: 325 mg Acetylcysteine (Acetylcysteine 20%) 4 ml INH RQ6 [facility] Last Admin: 07/15/17 07:40 Dose: Not Given Albuterol/Ipratropium (Duoneb 3 Mg/0.5 Mg (3 Ml) Ud) 3 ml INH RQ6 [facility] Last Admin: 07/15/17 13:04 Dose: 3 ml Clopidogrel Bisulfate (Plavix) 75 mg PO DAILY [facility] Last Admin: 07/15/17 09:46 Dose: 75 mg Docusate Sodium (Colace) 100 mg PO DAILY [facility] Last Admin: 07/15/17 09:46 Dose: 100 mg Famotidine (Pepcid) 20 mg PO DAILY [facility] Last Admin: 07/15/17 09:46 Dose: 20 mg Folic Acid (Folic Acid) 1 mg PO DAILY [facility] Last Admin: 07/15/17 09:46 Dose: 1 mg Furosemide (Lasix) 40 mg IVP DAILY [facility] Last Admin: 07/15/17 09:47 Dose: 40 mg Guaifenesin/Dextromethorphan (Robitussin Dm) 5 ml PO Q4H PRN PRN Reason: Cough Last Admin: 07/15/17 09:46 Dose: 5 ml Aztreonam 2 gm/ Sodium (Chloride) 100 mls @ 200 mls/hr IVPB Q8H [facility] Last Admin: 07/15/17 12:00 Dose: 200 mls/hr Vancomycin/Sodium Chloride (Vancomycin 1 Gm/Ns 200 Ml) 1 gm in 200 mls @ 133.333 mls/hr IVPB Q24H [facility] Stop: 07/18/17 19:01 Last Admin: 07/14/17 20:45 Dose: 133.333 mls/hr Insulin Aspart (Novolog) 0 unit SC Q6 [facility] PRN Reason: Protocol Last Admin: 07/15/17 12:05 Dose: 4 unit Methylprednisolone (Solu-Medrol) 40 mg IVP Q8 [facility] Last Admin: 07/15/17 13:50 Dose: 40 mg Metoprolol Succinate (Toprol Xl) 12.5 mg PO Q12 [facility] Last Admin: 07/15/17 09:46 Dose: 12.5 mg Montelukast Sodium (Singulair) 10 mg PO DAILY [facility] Last Admin: 07/15/17 09:46 Dose: 10 mg Potassium Chloride (Klor-Con 10) 10 meq PO DAILY [facility] Last Admin: 07/15/17 09:46 Dose: 10 meq Rosuvastatin Calcium (Crestor) 10 mg PO HS [facility] Last Admin: 07/14/17 22:39 Dose: 10 mg Sennosides (Senokot Tab) 8.6 mg PO BID [facility] Last Admin: 07/15/17 09:46 Dose: 8.6 mg - Labs Labs: 07/12/17 07:47 07/12/17 07:47 PT 13.6 SECONDS (9.7-12.2) H 07/06/17 11:09 INR 1.2 07/06/17 11:09 APTT 24 SECONDS (21-34) 07/06/17 11:09 Assessment and Plan (1) Acute urinary tract infection Status: Acute (2) Allergic urticaria Status: Acute (3) Asthma Status: Acute (4) Asthma exacerbation Status: Acute (5) Bronchitis Status: Acute (6) COPD exacerbation Status: Acute (7) Constipation Status: Acute (8) Dehydration symptoms Status: Acute (9) Dyspnea Status: Acute (10) Dyspnea Status: Acute (11) Influenza Status: Acute (12) Pneumonia Status: Acute (13) Prophylactic measure Status: Acute (14) UTI (urinary tract infection) Status: Acute (15) Weakness Status: Acute (16) GERD (gastroesophageal reflux disease) Status: Chronic (17) HTN (hypertension) Status: Chronic (18) Hyperlipidemia Status: Chronic (19) Hypertension Status: Chronic
[2017-07-15] MEDS: Vancomycin 1 gm/NS 200 ml 1 GM/200 ML BAG IVPB SCH (18:13)
--- NOTE | 2017-07-15 18:33 | CP.PCM.PN ---
Subjective - Date & Time of Evaluation Date of Evaluation: 07/15/17 Time of Evaluation: 12:30 - Subjective Subjective: Patient seen and evaluated Denies chest pain Some dyspnea No fever Objective - Vital Signs/Intake and Output Vital Signs (last 24 hours): Temp Pulse Resp BP Pulse Ox 97.9 F 82 20 137/84 99 07/15/17 16:06 07/15/17 16:27 07/15/17 16:06 07/15/17 16:06 07/15/17 16:06 Intake and Output: 07/15/17 07/15/17 06:59 18:59 Intake Total 400 Output Total 550 1550 Balance -550 -1150 - Medications Medications: Current Medications Acetaminophen (Tylenol 325mg Tab) 325 mg PO Q6 [facility] Last Admin: 07/15/17 18:12 Dose: 325 mg Acetylcysteine (Acetylcysteine 20%) 4 ml INH RQ6 [facility] Last Admin: 07/15/17 07:40 Dose: Not Given Albuterol/Ipratropium (Duoneb 3 Mg/0.5 Mg (3 Ml) Ud) 3 ml INH RQ6 [facility] Last Admin: 07/15/17 13:04 Dose: 3 ml Clopidogrel Bisulfate (Plavix) 75 mg PO DAILY [facility] Last Admin: 07/15/17 09:46 Dose: 75 mg Docusate Sodium (Colace) 100 mg PO DAILY [facility] Last Admin: 07/15/17 09:46 Dose: 100 mg Famotidine (Pepcid) 20 mg PO DAILY [facility] Last Admin: 07/15/17 09:46 Dose: 20 mg Folic Acid (Folic Acid) 1 mg PO DAILY [facility] Last Admin: 07/15/17 09:46 Dose: 1 mg Furosemide (Lasix) 40 mg IVP DAILY [facility] Last Admin: 07/15/17 09:47 Dose: 40 mg Guaifenesin/Dextromethorphan (Robitussin Dm) 5 ml PO Q4H PRN PRN Reason: Cough Last Admin: 07/15/17 18:12 Dose: 5 ml Aztreonam 2 gm/ Sodium (Chloride) 100 mls @ 200 mls/hr IVPB Q8H [facility] Last Admin: 07/15/17 18:13 Dose: 200 mls/hr Vancomycin/Sodium Chloride (Vancomycin 1 Gm/Ns 200 Ml) 1 gm in 200 mls @ 133.333 mls/hr IVPB Q24H [facility] Stop: 07/18/17 19:01 Last Admin: 07/15/17 18:13 Dose: 133.333 mls/hr Insulin Aspart (Novolog) 0 unit SC Q6 [facility] PRN Reason: Protocol Last Admin: 07/15/17 18:12 Dose: 4 unit Methylprednisolone (Solu-Medrol) 40 mg IVP Q8 [facility] Last Admin: 07/15/17 13:50 Dose: 40 mg Metoprolol Succinate (Toprol Xl) 12.5 mg PO Q12 [facility] Last Admin: 07/15/17 09:46 Dose: 12.5 mg Montelukast Sodium (Singulair) 10 mg PO DAILY [facility] Last Admin: 07/15/17 09:46 Dose: 10 mg Potassium Chloride (Klor-Con 10) 10 meq PO DAILY [facility] Last Admin: 07/15/17 09:46 Dose: 10 meq Rosuvastatin Calcium (Crestor) 10 mg PO HS [facility] Last Admin: 07/14/17 22:39 Dose: 10 mg Sennosides (Senokot Tab) 8.6 mg PO BID [facility] Last Admin: 07/15/17 18:12 Dose: 8.6 mg - Labs Labs: 07/12/17 07:47 07/12/17 07:47 PT 13.6 SECONDS (9.7-12.2) H 07/06/17 11:09 INR 1.2 07/06/17 11:09 APTT 24 SECONDS (21-34) 07/06/17 11:09 - Head Exam Head Exam: ATRAUMATIC - Eye Exam Eye Exam: EOMI, PERRL Pupil Exam: NORMAL ACCOMODATION - ENT Exam ENT Exam: Mucous Membranes Moist - Neck Exam Neck Exam: Full ROM, Normal Inspection - Respiratory Exam Respiratory Exam: Clear to Ausculation Bilateral, NORMAL BREATHING PATTERN - Cardiovascular Exam Cardiovascular Exam: REGULAR RHYTHM, +S1, +S2 - GI/Abdominal Exam GI & Abdominal Exam: Soft, Normal Bowel Sounds - Extremities Exam Extremities Exam: Full ROM, Normal Capillary Refill - Neurological Exam Neurological Exam: Alert, Awake, CN II-XII Intact - Psychiatric Exam Psychiatric exam: Normal Mood - Skin Skin Exam: Dry, Warm Assessment and Plan - Assessment and Plan (Free Text) Assessment: 1. Dyspnea Pneumonia Vs. Diastolic CHF Check Pro BNP Lasix PRN ECHO: Normal EF 2. HTN controlled 3. Pneumonia Medical management
[2017-07-16] MEDS: (Novolog) Insulin Aspart, Recombinant 100 u/ml 10 ml vial SC SCH ×5 (01:51→23:56)
[2017-07-16] MEDS: Aztreonam 2 GM in Sodium Chloride 0.9% 100 ML IVPB SCH ×3 (02:00→18:30)
[2017-07-16] MEDS: Acetylcysteine 20% Inhal Soln (4ml) INH SCH ×4 (03:01→20:57)
[2017-07-16] MEDS: Albuterol-Ipratrop 3 mg / 0.5 (3 ml) UD INH SCH ×4 (03:01→20:57)
[2017-07-16] MEDS: MethylPREDNISolone 40 mg Vial IVP SCH ×3 (05:19→22:42)
[2017-07-16 09:16] LABS: BASO % 0.1 % (0.0-2.0); LYMPH # 0.6 K/uL (1.0-4.3); LYMPH % 3.4 % (20.0-40.0); MEAN CELL VOLUME 99.9 fL (81.0-99.0); MEAN CORPUSCULAR HEMOGLOBIN 32.9 pg (27.0-31.0); MEAN CORPUSCULAR HGB CONC 32.9 g/dL (33.0-37.0); MEAN PLATELET VOLUME 7.6 fL (7.2-11.7); MONO # 0.5 K/uL (0.0-0.8); MONO % 2.7 % (0.0-10.0); NEUT # 16.7 K/uL (1.8-7.0); NEUT % 93.8 % (50.0-75.0); NRBC % 0.4 % (0.0-2.0); RBC 2.19 Mil/uL (3.80-5.20); RED CELL DISTRIBUTION WIDTH 18.2 % (11.5-14.5); WHITE BLOOD COUNT 17.8 K/uL (4.8-10.8)
[2017-07-16 09:18] LABS: HEMOGLOBIN 7.2 g/dL (11.0-16.0); PLATELET COUNT 258 K/uL (130-400)
[2017-07-16] MEDS: Potassium Chloride 10 mEq ER Tab PO SCH (09:40)
[2017-07-16 09:41] LABS: ALB/GLOB RATIO 1.1 (1.0-2.1); ALBUMIN 2.6 g/dL (3.5-5.0); ALT/SGPT 41 U/L (9-52); AST/SGOT 17 U/L (14-36); BLOOD UREA NITROGEN 21 mg/dL (7-17); CALCIUM 8.5 mg/dl (8.6-10.4); GFR AFRICAN-AMERICAN > 60; GFR NON-AFRICAN AMERICAN > 60
[2017-07-16 09:47] LABS: ANISOCYTOSIS SLIGHT; HYPOCHROMIC SLIGHT; LYMPHOCYTE 3 % (20-40); MONOCYTE 3 % (0-10); MYELOCYTE 1 % (0-0); NEUTROPHIL 93 % (50-75); PLATELET ESTIMATE NORMAL (NORMAL); POIKILOCYTOSIS SLIGHT; TEARDROP CELLS SLIGHT; TOTAL CELLS COUNTED 100
[2017-07-16 09:50] LABS: B-TYPE NATRIURETIC PEPTIDE 9630 pg/mL (0-900)
[2017-07-16] MEDS: guaiFENesin DM 100 mg-10 mg/5 ml UD PO PRN ×2 (10:44→23:55)
[2017-07-16] MEDS: Metoprolol Succinate 12.5 mg XL PO SCH ×2 (10:44→22:41)
--- NOTE | 2017-07-16 12:05 | CP.PCM.PN ---
Subjective - Date & Time of Evaluation Date of Evaluation: 07/16/17 Time of Evaluation: 08:40 - Subjective Subjective: Patient seen and exam Less congested and short of breath Still unable to bring up phlegm Afebrile Patient is awake and responsive In no respiratory distress Objective - Vital Signs/Intake and Output Vital Signs (last 24 hours): Temp Pulse Resp BP Pulse Ox 97.5 F L 98 H 20 101/69 99 07/16/17 08:00 07/16/17 08:00 07/16/17 08:00 07/16/17 09:40 07/16/17 08:00 Intake and Output: 07/16/17 07/16/17 06:59 18:59 Intake Total 200 Output Total 225 Balance -25 - Medications Medications: Current Medications Acetaminophen (Tylenol 325mg Tab) 325 mg PO Q6 [facility] Last Admin: 07/16/17 05:19 Dose: 325 mg Acetylcysteine (Acetylcysteine 20%) 4 ml INH RQ6 [facility] Last Admin: 07/16/17 07:17 Dose: Not Given Albuterol/Ipratropium (Duoneb 3 Mg/0.5 Mg (3 Ml) Ud) 3 ml INH RQ6 [facility] Last Admin: 07/16/17 07:17 Dose: 3 ml Clopidogrel Bisulfate (Plavix) 75 mg PO DAILY [facility] Last Admin: 07/16/17 09:39 Dose: 75 mg Docusate Sodium (Colace) 100 mg PO DAILY [facility] Last Admin: 07/16/17 09:40 Dose: 100 mg Famotidine (Pepcid) 20 mg PO DAILY [facility] Last Admin: 07/16/17 09:40 Dose: 20 mg Folic Acid (Folic Acid) 1 mg PO DAILY [facility] Last Admin: 07/16/17 10:44 Dose: 1 mg Furosemide (Lasix) 40 mg IVP DAILY [facility] Last Admin: 07/16/17 09:40 Dose: 40 mg Guaifenesin/Dextromethorphan (Robitussin Dm) 5 ml PO Q4H PRN PRN Reason: Cough Last Admin: 07/16/17 10:44 Dose: 5 ml Aztreonam 2 gm/ Sodium (Chloride) 100 mls @ 200 mls/hr IVPB Q8H [facility] Last Admin: 07/16/17 02:00 Dose: 200 mls/hr Vancomycin/Sodium Chloride (Vancomycin 1 Gm/Ns 200 Ml) 1 gm in 200 mls @ 133.333 mls/hr IVPB Q24H [facility] Stop: 07/18/17 19:01 Last Admin: 07/15/17 18:13 Dose: 133.333 mls/hr Insulin Aspart (Novolog) 0 unit SC Q6 [facility] PRN Reason: Protocol Last Admin: 07/16/17 08:25 Dose: 3 unit Methylprednisolone (Solu-Medrol) 40 mg IVP Q8 [facility] Last Admin: 07/16/17 05:19 Dose: 40 mg Metoprolol Succinate (Toprol Xl) 12.5 mg PO Q12 [facility] Last Admin: 07/16/17 10:44 Dose: 12.5 mg Montelukast Sodium (Singulair) 10 mg PO DAILY [facility] Last Admin: 07/16/17 09:40 Dose: 10 mg Potassium Chloride (Klor-Con 10) 10 meq PO DAILY [facility] Last Admin: 07/16/17 09:40 Dose: 10 meq Rosuvastatin Calcium (Crestor) 10 mg PO HS [facility] Last Admin: 07/15/17 22:35 Dose: 10 mg Sennosides (Senokot Tab) 8.6 mg PO BID [facility] Last Admin: 07/16/17 09:40 Dose: 8.6 mg - Labs Labs: 07/16/17 09:06 07/16/17 09:06 PT 13.6 SECONDS (9.7-12.2) H 07/06/17 11:09 INR 1.2 07/06/17 11:09 APTT 24 SECONDS (21-34) 07/06/17 11:09 - Head Exam Head Exam: ATRAUMATIC, NORMOCEPHALIC - ENT Exam ENT Exam: Mucous Membranes Moist - Neck Exam Neck Exam: Normal Inspection - Respiratory Exam Respiratory Exam: Rales, Rhonchi - Cardiovascular Exam Cardiovascular Exam: REGULAR RHYTHM - GI/Abdominal Exam GI & Abdominal Exam: Soft, Normal Bowel Sounds - Extremities Exam Extremities Exam: Normal Inspection - Neurological Exam Neurological Exam: Alert, Oriented x3 Assessment and Plan (1) Pneumonia Assessment & Plan: continue antibiotics Continue IV steroids Nebulizer treatment ffollowup chest x-ray Status: Acute (2) UTI (urinary tract infection) Status: Acute (3) Asthma exacerbation Status: Acute
--- NOTE | 2017-07-16 13:26 | EEG ---
DATE: 07/11/2017 This is a 16-channel electroencephalogram of awake and drowsy adult. During the study, photic stimulation was performed. Hyperventilation was not performed. The resting electroencephalogram shows a diffuse 20 to 30 microvolt delta mixed with low theta activities noted. Some sleep spindle activities consistent with N2 sleep. Some movement artifact and lead contact artifact also contaminating the frontal and temporal leads intermittently. The photic stimulation did not evoke driving response noted at 2 to 20 Hz. IMPRESSION: This is an abnormal electroencephalogram because of persistent slowing throughout the record suggestive of bilateral cerebral dysfunction. This is probably secondary to metabolic, vascular, or degenerative process. Please correlate the findings with the neurological and radiological studies. Chito Hua MD
--- NOTE | 2017-07-16 15:54 | PCM.URO ---
Urology Progress Note - Objective Lab Studies: Reviewed (no gu change) Lab Results Last 24 Hours: Laboratory Results - last 24 hr 07/15/17 07/15/17 07/15/17 10:59 17:28 22:01 WBC RBC Hgb Hct MCV MCH MCHC RDW Plt Count MPV Neut % (Auto) Lymph % (Auto) [place] % (Auto) Eos % (Auto) Baso % (Auto) Neut # (Auto) Lymph # (Auto) [place] # (Auto) Eos # (Auto) Baso # (Auto) Neutrophils % (Manual) Lymphocytes % (Manual) Monocytes % (Manual) Myelocytes % Platelet Estimate Hypochromasia (manual) Poikilocytosis (manual Anisocytosis (manual) Macrocytosis (manual) Tear Drop Cells Sodium Potassium Chloride Carbon Dioxide Anion Gap BUN Creatinine Est GFR ( Amer) Est GFR (Non-Af Amer) POC Glucose (mg/dL) 281 H 251 H Random Glucose Calcium Total Bilirubin AST ALT Alkaline Phosphatase NT-Pro-B Natriuret Pep Total Protein Albumin Globulin Albumin/Globulin Ratio Procalcitonin 0.17 L Vancomycin Trough 07/16/17 07/16/17 07/16/17 01:49 07:32 09:06 WBC RBC Hgb Hct MCV MCH MCHC RDW Plt Count MPV Neut % (Auto) Lymph % (Auto) [place] % (Auto) Eos % (Auto) Baso % (Auto) Neut # (Auto) Lymph # (Auto) [place] # (Auto) Eos # (Auto) Baso # (Auto) Neutrophils % (Manual) Lymphocytes % (Manual) Monocytes % (Manual) Myelocytes % Platelet Estimate Hypochromasia (manual) Poikilocytosis (manual Anisocytosis (manual) Macrocytosis (manual) Tear Drop Cells Sodium Potassium Chloride Carbon Dioxide Anion Gap BUN Creatinine Est GFR ( Amer) Est GFR (Non-Af Amer) POC Glucose (mg/dL) 226 H 231 H Random Glucose Calcium Total Bilirubin AST ALT Alkaline Phosphatase NT-Pro-B Natriuret Pep Total Protein Albumin Globulin Albumin/Globulin Ratio Procalcitonin Vancomycin Trough 23.7 H 07/16/17 07/16/17 07/16/17 09:06 09:06 11:50 WBC 17.8 H RBC 2.19 L Hgb 7.2 L D Hct 21.9 L MCV 99.9 H MCH 32.9 H MCHC 32.9 L RDW 18.2 H Plt Count 258 D MPV 7.6 Neut % (Auto) 93.8 H Lymph % (Auto) 3.4 L [place] % (Auto) 2.7 Eos % (Auto) 0.0 Baso % (Auto) 0.1 Neut # (Auto) 16.7 H Lymph # (Auto) 0.6 L [place] # (Auto) 0.5 Eos # (Auto) 0.0 Baso # (Auto) 0.0 Neutrophils % (Manual) 93 H Lymphocytes % (Manual) 3 L Monocytes % (Manual) 3 Myelocytes % 1 H Platelet Estimate Normal Hypochromasia (manual) Slight Poikilocytosis (manual Slight Anisocytosis (manual) Slight Macrocytosis (manual) Slight Tear Drop Cells Slight Sodium 131 L Potassium 4.0 Chloride 101 Carbon Dioxide 22 Anion Gap 11 BUN 21 H Creatinine 0.6 L Est GFR ( Amer) > 60 Est GFR (Non-Af Amer) > 60 POC Glucose (mg/dL) 281 H Random Glucose 226 H Calcium 8.5 L Total Bilirubin 0.2 AST 17 ALT 41 Alkaline Phosphatase 61 NT-Pro-B Natriuret Pep 9630 H Total Protein 4.9 L Albumin 2.6 L Globulin 2.3 Albumin/Globulin Ratio 1.1 Procalcitonin Vancomycin Trough Intake & Output: Intake & Output 07/15/17 07/16/17 07/16/17 18:59 06:59 18:59 Intake Total 400 200 Output Total 1550 225 Balance -1150 -25 Intake: Intake, IV Amount 100 200 Left Upper arm 100 200 Oral 300 Output: Urine 1550 225 Urethral ([place]) 1550 225 Other: # Bowel Movements 1 1 Vital Signs: Vital Signs - 24 hr 07/15/17 07/15/17 07/16/17 16:06 16:27 01:00 Temperature 97.9 F Pulse Rate 100 H 82 82 Respiratory 20 Rate Blood Pressure 137/84 O2 Sat by Pulse 99 Oximetry 07/16/17 07/16/17 07/16/17 02:12 07:45 08:00 Temperature 97.3 F L 97.5 F L Pulse Rate 108 H 116 H 98 H Respiratory 20 20 Rate Blood Pressure 133/79 105/64 O2 Sat by Pulse 100 99 Oximetry 07/16/17 09:40 Temperature Pulse Rate Respiratory Rate Blood Pressure 101/69 O2 Sat by Pulse Oximetry
--- NOTE | 2017-07-16 16:19 | CP.PCM.PN ---
Subjective - Date & Time of Evaluation Date of Evaluation: 07/16/17 Time of Evaluation: 16:18 - Subjective Subjective: PT SEEN THIS AFTERNOON WITH DR MERCADO DURING ROUNDS. LABS REVIEWED AND HGB NOTED TO BE 7.2 TODAY. STOOL OB WAS + ON 07/09; NO GI ON CASE. CONSULT WITH DR. BRADLEY ORDERED BY ME TODAY. TYPE AND CROSS FOR 2 UNITS PRBC. PT TO RECEIVE TRANSFUSION THIS EVENING OF 1 UNIT PRBC WITH A DOSE OF LASIX PRIOR TO TRANSFUSION. CONSENT FOR TRANSFUSION DISCUSSED AT GREAT LENGTH WITH PT AND FAMILY. PT'S SON, ZACHARY, GAVE THE VERBAL TELEPHONE CONSENT FOR THE TRANSFUSION; HE WILL BE IN THIS EVENING TO SIGN THE FORM INSTRUCTED BY ME. RADHA, PRIMARY RN, WITNESSED CONSENT. DR. MERCADO AWARE OF PLAN. AM LABS ORDERED. NO FURTHER ORDERS. Objective - Vital Signs/Intake and Output Vital Signs (last 24 hours): Temp Pulse Resp BP Pulse Ox 97.5 F L 98 H 20 101/69 99 07/16/17 08:00 07/16/17 08:00 07/16/17 08:00 07/16/17 09:40 07/16/17 08:00 Intake and Output: 07/16/17 07/16/17 06:59 18:59 Intake Total 200 Output Total 225 Balance -25 - Medications Medications: Current Medications Acetaminophen (Tylenol 325mg Tab) 325 mg PO Q6 [facility] Last Admin: 07/16/17 05:19 Dose: 325 mg Acetylcysteine (Acetylcysteine 20%) 4 ml INH RQ6 [facility] Last Admin: 07/16/17 13:08 Dose: Not Given Albuterol/Ipratropium (Duoneb 3 Mg/0.5 Mg (3 Ml) Ud) 3 ml INH RQ6 [facility] Last Admin: 07/16/17 13:08 Dose: 3 ml Clopidogrel Bisulfate (Plavix) 75 mg PO DAILY [facility] Last Admin: 07/16/17 09:39 Dose: 75 mg Docusate Sodium (Colace) 100 mg PO DAILY [facility] Last Admin: 07/16/17 09:40 Dose: 100 mg Famotidine (Pepcid) 20 mg PO DAILY [facility] Last Admin: 07/16/17 09:40 Dose: 20 mg Folic Acid (Folic Acid) 1 mg PO DAILY [facility] Last Admin: 07/16/17 10:44 Dose: 1 mg Furosemide (Lasix) 40 mg IVP DAILY [facility] Last Admin: 07/16/17 09:40 Dose: 40 mg Furosemide (Lasix) 40 mg IVP ONCE PRN PRN Reason: GIVE PRIOR TO BLOOD TRANSFUSIO Guaifenesin/Dextromethorphan (Robitussin Dm) 5 ml PO Q4H PRN PRN Reason: Cough Last Admin: 07/16/17 10:44 Dose: 5 ml Aztreonam 2 gm/ Sodium (Chloride) 100 mls @ 200 mls/hr IVPB Q8H [facility] Last Admin: 07/16/17 11:00 Dose: 200 mls/hr Vancomycin/Sodium Chloride (Vancomycin 1 Gm/Ns 200 Ml) 1 gm in 200 mls @ 133.333 mls/hr IVPB Q24H [facility] Stop: 07/18/17 19:01 Last Admin: 07/15/17 18:13 Dose: 133.333 mls/hr Insulin Aspart (Novolog) 0 unit SC Q6 [facility] PRN Reason: Protocol Last Admin: 07/16/17 12:00 Dose: 4 unit Methylprednisolone (Solu-Medrol) 40 mg IVP Q8 [facility] Last Admin: 07/16/17 13:04 Dose: 40 mg Metoprolol Succinate (Toprol Xl) 12.5 mg PO Q12 [facility] Last Admin: 07/16/17 10:44 Dose: 12.5 mg Montelukast Sodium (Singulair) 10 mg PO DAILY [facility] Last Admin: 07/16/17 09:40 Dose: 10 mg Potassium Chloride (Klor-Con 10) 10 meq PO DAILY [facility] Last Admin: 07/16/17 09:40 Dose: 10 meq Rosuvastatin Calcium (Crestor) 10 mg PO HS [facility] Last Admin: 07/15/17 22:35 Dose: 10 mg Sennosides (Senokot Tab) 8.6 mg PO BID [facility] Last Admin: 07/16/17 09:40 Dose: 8.6 mg - Labs Labs: 07/16/17 09:06 07/16/17 09:06 PT 13.6 SECONDS (9.7-12.2) H 07/06/17 11:09 INR 1.2 07/06/17 11:09 APTT 24 SECONDS (21-34) 07/06/17 11:09
[2017-07-16] MEDS: Vancomycin 1 gm/NS 200 ml 1 GM/200 ML BAG IVPB SCH (18:59)
--- NOTE | 2017-07-16 19:04 | CP.PCM.PN ---
Subjective - Date & Time of Evaluation Date of Evaluation: 07/16/17 Time of Evaluation: 10:40 - Subjective Subjective: clinically same Objective - Vital Signs/Intake and Output Vital Signs (last 24 hours): Temp Pulse Resp BP Pulse Ox 98.1 F 98 H 20 122/80 97 07/16/17 16:41 07/16/17 16:41 07/16/17 16:41 07/16/17 16:41 07/16/17 16:41 Intake and Output: 07/16/17 07/17/17 18:59 06:59 Output Total 1200 Balance -1200 - Medications Medications: Current Medications Acetaminophen (Tylenol 325mg Tab) 325 mg PO Q6 [facility] Last Admin: 07/16/17 18:56 Dose: 325 mg Acetylcysteine (Acetylcysteine 20%) 4 ml INH RQ6 [facility] Last Admin: 07/16/17 13:08 Dose: Not Given Albuterol/Ipratropium (Duoneb 3 Mg/0.5 Mg (3 Ml) Ud) 3 ml INH RQ6 [facility] Last Admin: 07/16/17 13:08 Dose: 3 ml Clopidogrel Bisulfate (Plavix) 75 mg PO DAILY [facility] Last Admin: 07/16/17 09:39 Dose: 75 mg Docusate Sodium (Colace) 100 mg PO DAILY [facility] Last Admin: 07/16/17 09:40 Dose: 100 mg Famotidine (Pepcid) 20 mg PO DAILY [facility] Last Admin: 07/16/17 09:40 Dose: 20 mg Folic Acid (Folic Acid) 1 mg PO DAILY [facility] Last Admin: 07/16/17 10:44 Dose: 1 mg Furosemide (Lasix) 40 mg IVP DAILY [facility] Last Admin: 07/16/17 09:40 Dose: 40 mg Furosemide (Lasix) 40 mg IVP ONCE PRN PRN Reason: GIVE PRIOR TO BLOOD TRANSFUSIO Guaifenesin/Dextromethorphan (Robitussin Dm) 5 ml PO Q4H PRN PRN Reason: Cough Last Admin: 07/16/17 10:44 Dose: 5 ml Aztreonam 2 gm/ Sodium (Chloride) 100 mls @ 200 mls/hr IVPB Q8H [facility] Last Admin: 07/16/17 18:30 Dose: 200 mls/hr Vancomycin/Sodium Chloride (Vancomycin 1 Gm/Ns 200 Ml) 1 gm in 200 mls @ 133.333 mls/hr IVPB Q24H [facility] Stop: 07/18/17 19:01 Last Admin: 07/16/17 18:59 Dose: 133.333 mls/hr Insulin Aspart (Novolog) 0 unit SC Q6 [facility] PRN Reason: Protocol Last Admin: 07/16/17 18:58 Dose: 4 unit Methylprednisolone (Solu-Medrol) 40 mg IVP Q8 [facility] Last Admin: 07/16/17 13:04 Dose: 40 mg Metoprolol Succinate (Toprol Xl) 12.5 mg PO Q12 [facility] Last Admin: 07/16/17 10:44 Dose: 12.5 mg Montelukast Sodium (Singulair) 10 mg PO DAILY [facility] Last Admin: 07/16/17 09:40 Dose: 10 mg Potassium Chloride (Klor-Con 10) 10 meq PO DAILY [facility] Last Admin: 07/16/17 09:40 Dose: 10 meq Rosuvastatin Calcium (Crestor) 10 mg PO HS [facility] Last Admin: 07/15/17 22:35 Dose: 10 mg Sennosides (Senokot Tab) 8.6 mg PO BID [facility] Last Admin: 07/16/17 18:56 Dose: 8.6 mg - Labs Labs: 07/16/17 09:06 07/16/17 09:06 PT 13.6 SECONDS (9.7-12.2) H 07/06/17 11:09 INR 1.2 07/06/17 11:09 APTT 24 SECONDS (21-34) 07/06/17 11:09 - Constitutional Appears: Well - Head Exam Head Exam: ATRAUMATIC, NORMAL INSPECTION, NORMOCEPHALIC - Eye Exam Eye Exam: EOMI, Normal appearance, PERRL Pupil Exam: NORMAL ACCOMODATION, PERRL - ENT Exam ENT Exam: Mucous Membranes Moist, Normal Exam - Neck Exam Neck Exam: Full ROM, Normal Inspection. absent: Lymphadenopathy - Respiratory Exam Respiratory Exam: Decreased Breath Sounds - Cardiovascular Exam Cardiovascular Exam: REGULAR RHYTHM, +S1, +S2 - GI/Abdominal Exam GI & Abdominal Exam: Soft, Diminished Bowel Sounds - Rectal Exam Rectal Exam: Deferred Assessment and Plan (1) Acute urinary tract infection Status: Acute (2) Allergic urticaria Status: Acute (3) Asthma Status: Acute (4) Asthma exacerbation Status: Acute (5) Bronchitis Status: Acute (6) COPD exacerbation Status: Acute (7) Constipation Status: Acute (8) Dehydration symptoms Status: Acute (9) Dyspnea Status: Acute (10) Dyspnea Status: Acute (11) Influenza Status: Acute (12) Pneumonia Status: Acute (13) Prophylactic measure Status: Acute (14) UTI (urinary tract infection) Status: Acute (15) Weakness Status: Acute (16) GERD (gastroesophageal reflux disease) Status: Chronic (17) HTN (hypertension) Status: Chronic (18) Hyperlipidemia Status: Chronic (19) Hypertension Status: Chronic
--- NOTE | 2017-07-16 23:22 | CP.PCM.CON ---
History of Present Illness - History of Present Illness History of Present Illness: Patient stable without any major cardiac event Past Patient History - Infectious Disease Hx of Infectious Diseases: None - Past Medical History & Family History Past Medical History?: Yes - Past Social History Smoking Status: Never Smoked - CARDIAC Hx Hypercholesterolemia: Yes Hx Hypertension: Yes - PULMONARY Hx Asthma: Yes Hx Bronchitis: Yes Hx Chronic Obstructive Pulmonary Disease (COPD): Yes Hx Pneumonia: Yes - NEUROLOGICAL Hx Neurological Disorder: No - HEENT Hx HEENT Problems: No Other/Comment: WEARS GLASSES - RENAL Hx Chronic Kidney Disease: No - ENDOCRINE/METABOLIC Hx Endocrine Disorders: Yes - HEMATOLOGICAL/ONCOLOGICAL Hx Blood Disorders: Yes Hx Cancer: Yes (Esophagus) - INTEGUMENTARY Hx Dermatological Problems: No - MUSCULOSKELETAL/RHEUMATOLOGICAL Hx Arthritis: Yes (R TKR; BACK PAIN) - GASTROINTESTINAL Hx Gastrointestinal Disorders: Yes Hx Gastroesophageal Reflux: Yes Other/Comment: hx of esophageal CA - GENITOURINARY/GYNECOLOGICAL Hx Genitourinary Disorders: Yes - PSYCHIATRIC Hx Substance Use: No - SURGICAL HISTORY Hx Surgeries: Yes Hx Breast Biopsy: Yes Hx Hysterectomy: Yes Hx Orthopedic Surgery: Yes (RTKR) Other/Comment: ESOPHAGEAL SX - ANESTHESIA Hx Anesthesia: Yes Hx Anesthesia Reactions: No Hx Malignant Hyperthermia: No Meds Allergies/Adverse Reactions: Allergies Allergy/AdvReac Type Severity Reaction Status Date / Time aspirin Allergy Severe RASH Verified 05/30/17 11:42 ciprofloxacin [From Cipro] Allergy Severe RASH Verified 05/30/17 11:42 ciprofloxacin HCl Allergy Severe RASH Verified 05/30/17 11:42 [From Cipro] nitrofurantoin Allergy Severe RASH Verified 05/30/17 11:42 [From Macrobid] nitrofurantoin Allergy Severe RASH Verified 05/30/17 11:42 macrocrystalline [From Macrobid] Penicillins Allergy Severe RASH Verified 05/30/17 11:42 Sulfa (Sulfonamide Allergy Severe RASH Verified 05/30/17 11:42 Antibiotics) azithromycin Allergy ITCHING Verified 05/30/17 11:42 - Medications Medications: Current Medications Acetaminophen (Tylenol 325mg Tab) 325 mg PO Q6 [facility] Last Admin: 07/16/17 18:56 Dose: 325 mg Acetylcysteine (Acetylcysteine 20%) 4 ml INH RQ6 [facility] Last Admin: 07/16/17 20:57 Dose: Not Given Albuterol/Ipratropium (Duoneb 3 Mg/0.5 Mg (3 Ml) Ud) 3 ml INH RQ6 [facility] Last Admin: 07/16/17 20:57 Dose: 3 ml Clopidogrel Bisulfate (Plavix) 75 mg PO DAILY [facility] Last Admin: 07/16/17 09:39 Dose: 75 mg Docusate Sodium (Colace) 100 mg PO DAILY [facility] Last Admin: 07/16/17 09:40 Dose: 100 mg Famotidine (Pepcid) 20 mg PO DAILY [facility] Last Admin: 07/16/17 09:40 Dose: 20 mg Folic Acid (Folic Acid) 1 mg PO DAILY [facility] Last Admin: 07/16/17 10:44 Dose: 1 mg Furosemide (Lasix) 40 mg IVP DAILY [facility] Last Admin: 07/16/17 09:40 Dose: 40 mg Furosemide (Lasix) 40 mg IVP ONCE PRN PRN Reason: GIVE PRIOR TO BLOOD TRANSFUSIO Guaifenesin/Dextromethorphan (Robitussin Dm) 5 ml PO Q4H PRN PRN Reason: Cough Last Admin: 07/16/17 10:44 Dose: 5 ml Aztreonam 2 gm/ Sodium (Chloride) 100 mls @ 200 mls/hr IVPB Q8H [facility] Last Admin: 07/16/17 18:30 Dose: 200 mls/hr Vancomycin/Sodium Chloride (Vancomycin 1 Gm/Ns 200 Ml) 1 gm in 200 mls @ 133.333 mls/hr IVPB Q24H [facility] Stop: 07/18/17 19:01 Last Admin: 07/16/17 18:59 Dose: 133.333 mls/hr Insulin Aspart (Novolog) 0 unit SC Q6 [facility] PRN Reason: Protocol Last Admin: 07/16/17 18:58 Dose: 4 unit Methylprednisolone (Solu-Medrol) 40 mg IVP Q8 [facility] Last Admin: 07/16/17 22:42 Dose: 40 mg Metoprolol Succinate (Toprol Xl) 12.5 mg PO Q12 [facility] Last Admin: 07/16/17 22:41 Dose: 12.5 mg Montelukast Sodium (Singulair) 10 mg PO DAILY [facility] Last Admin: 07/16/17 09:40 Dose: 10 mg Potassium Chloride (Klor-Con 10) 10 meq PO DAILY [facility] Last Admin: 07/16/17 09:40 Dose: 10 meq Rosuvastatin Calcium (Crestor) 10 mg PO HS [facility] Last Admin: 07/16/17 22:42 Dose: 10 mg Sennosides (Senokot Tab) 8.6 mg PO BID [facility] Last Admin: 07/16/17 18:56 Dose: 8.6 mg Results - Vital Signs Recent Vital Signs: Last Vital Signs Temp 98.1 F 07/16/17 16:41 Pulse 110 H 07/16/17 22:43 Resp 20 07/16/17 16:41 BP 118/78 07/16/17 22:40 Pulse Ox 97 07/16/17 16:41 - Labs Result Diagrams: 07/16/17 09:06 07/16/17 09:06 Labs: Laboratory Results - last 24 hr 07/16/17 07/16/17 07/16/17 01:49 07:32 09:06 WBC RBC Hgb Hct MCV MCH MCHC RDW Plt Count MPV Neut % (Auto) Lymph % (Auto) Moody % (Auto) Eos % (Auto) Baso % (Auto) Neut # (Auto) Lymph # (Auto) Moody # (Auto) Eos # (Auto) Baso # (Auto) Neutrophils % (Manual) Lymphocytes % (Manual) Monocytes % (Manual) Myelocytes % Platelet Estimate Hypochromasia (manual) Poikilocytosis (manual Anisocytosis (manual) Macrocytosis (manual) Tear Drop Cells Sodium Potassium Chloride Carbon Dioxide Anion Gap BUN Creatinine Est GFR ( Amer) Est GFR (Non-Af Amer) POC Glucose (mg/dL) 226 H 231 H Random Glucose Calcium Total Bilirubin AST ALT Alkaline Phosphatase NT-Pro-B Natriuret Pep Total Protein Albumin Globulin Albumin/Globulin Ratio Vancomycin Trough 23.7 H Blood Type Blood Type Confirm Antibody Screen 07/16/17 07/16/17 07/16/17 09:06 09:06 11:50 WBC 17.8 H RBC 2.19 L Hgb 7.2 L D Hct 21.9 L MCV 99.9 H MCH 32.9 H MCHC 32.9 L RDW 18.2 H Plt Count 258 D MPV 7.6 Neut % (Auto) 93.8 H Lymph % (Auto) 3.4 L Moody % (Auto) 2.7 Eos % (Auto) 0.0 Baso % (Auto) 0.1 Neut # (Auto) 16.7 H Lymph # (Auto) 0.6 L Moody # (Auto) 0.5 Eos # (Auto) 0.0 Baso # (Auto) 0.0 Neutrophils % (Manual) 93 H Lymphocytes % (Manual) 3 L Monocytes % (Manual) 3 Myelocytes % 1 H Platelet Estimate Normal Hypochromasia (manual) Slight Poikilocytosis (manual Slight Anisocytosis (manual) Slight Macrocytosis (manual) Slight Tear Drop Cells Slight Sodium 131 L Potassium 4.0 Chloride 101 Carbon Dioxide 22 Anion Gap 11 BUN 21 H Creatinine 0.6 L Est GFR ( Amer) > 60 Est GFR (Non-Af Amer) > 60 POC Glucose (mg/dL) 281 H Random Glucose 226 H Calcium 8.5 L Total Bilirubin 0.2 AST 17 ALT 41 Alkaline Phosphatase 61 NT-Pro-B Natriuret Pep 9630 H Total Protein 4.9 L Albumin 2.6 L Globulin 2.3 Albumin/Globulin Ratio 1.1 Vancomycin Trough Blood Type Blood Type Confirm Antibody Screen 07/16/17 07/16/17 07/16/17 16:15 20:59 21:17 WBC RBC Hgb Hct MCV MCH MCHC RDW Plt Count MPV Neut % (Auto) Lymph % (Auto) Moody % (Auto) Eos % (Auto) Baso % (Auto) Neut # (Auto) Lymph # (Auto) Moody # (Auto) Eos # (Auto) Baso # (Auto) Neutrophils % (Manual) Lymphocytes % (Manual) Monocytes % (Manual) Myelocytes % Platelet Estimate Hypochromasia (manual) Poikilocytosis (manual Anisocytosis (manual) Macrocytosis (manual) Tear Drop Cells Sodium Potassium Chloride Carbon Dioxide Anion Gap BUN Creatinine Est GFR ( Amer) Est GFR (Non-Af Amer) POC Glucose (mg/dL) 266 H 297 H Random Glucose Calcium Total Bilirubin AST ALT Alkaline Phosphatase NT-Pro-B Natriuret Pep Total Protein Albumin Globulin Albumin/Globulin Ratio Vancomycin Trough Blood Type A POSITIVE Blood Type Confirm A POSITIVE Antibody Screen Negative
[2017-07-17 00:08] VITALS: RESP 20
[2017-07-17] MEDS: Aztreonam 2 GM in Sodium Chloride 0.9% 100 ML IVPB SCH ×3 (02:33→18:36)
[2017-07-17] MEDS: Albuterol-Ipratrop 3 mg / 0.5 (3 ml) UD INH SCH ×2 (02:51→07:14)
[2017-07-17] MEDS: Acetylcysteine 20% Inhal Soln (4ml) INH SCH ×2 (02:51→07:14)
[2017-07-17] MEDS: MethylPREDNISolone 40 mg Vial IVP SCH ×2 (05:27→13:08)
[2017-07-17] MEDS: (Novolog) Insulin Aspart, Recombinant 100 u/ml 10 ml vial SC SCH ×3 (05:55→18:39)
[2017-07-17 07:25] LABS: BLOOD UREA NITROGEN 20 mg/dL (7-17); CALCIUM 8.6 mg/dl (8.6-10.4); GFR AFRICAN-AMERICAN > 60; GFR NON-AFRICAN AMERICAN > 60
[2017-07-17 07:38] LABS: MEAN PLATELET VOLUME 7.5 fL (7.2-11.7); RBC 3.08 Mil/uL (3.80-5.20); RED CELL DISTRIBUTION WIDTH 18.6 % (11.5-14.5); WHITE BLOOD COUNT 17.6 K/uL (4.8-10.8)
[2017-07-17 07:41] LABS: HEMOGLOBIN 9.9 g/dL (11.0-16.0); MEAN CELL VOLUME 94.3 fL (81.0-99.0)
--- NOTE | 2017-07-17 09:44 | CP.PCM.CON ---
<Tom Torres - Last Filed: 07/17/17 09:56> History of Present Illness - History of Present Illness History of Present Illness: PGY5 GI Fellow Consult Note Patient is a 81 year old female with PMHx significant for esophageal cancer s/p esophagectomy (prior to 2013 per imaging review), COPD, HTN, hyperlipidemia, GERD, COPD who initially presented [place] the hospital from [place] with worsening SOB. The patient has been admitted for 11 days and has been treated for an acute COPD exacerbation, pneumonia and UTI. She has had multiple admissions for this over the past 2 years. Patient has been treated with broad coverage antibiotics , steroid therapy and intermittent use of BIPAP. Our service has been consulted for anemia and fecal occult blood testing positive. The patient herself is a poor historian and does not recall the details of her past history. I called the patient's son who is listed as next of kin but have been unsuccessful thus far in reaching him. Per discussion with the patient and nursing staff, hemoglobin has slowly downtrended during this admission to its archie yesterday of 7.2. There have been no reports of overt blood loss either with hematochezia , melena, hematemesis or hematuria. Patient is having regular bowel movements. There is no noted significant bruising. She was transfused one unit PRBC yesterday with appropriate response. Per the patient's account she has not had any GI follow up after her esophagectomy and no recent EGD is on record with our facilities. The patient states she is bed bound, but cannot elaborate on this either. PMHx: See HPI PSHx: Esophagectomy, hysterectomy FHx: Father from metastatic Prostate Cancer, mother from Tuberculosis Social: Denies tobacco, EtOH or illicit drug use Endo: None on record but admits to EGD previously 12 system ROS limited given clinical condition but negative except where stated above. Past Patient History - Infectious Disease Hx of Infectious Diseases: None - Past Medical History & Family History Past Medical History?: Yes - Past Social History Smoking Status: Never Smoked - CARDIAC Hx Hypercholesterolemia: Yes Hx Hypertension: Yes - PULMONARY Hx Asthma: Yes Hx Bronchitis: Yes Hx Chronic Obstructive Pulmonary Disease (COPD): Yes Hx Pneumonia: Yes - NEUROLOGICAL Hx Neurological Disorder: No - HEENT Hx HEENT Problems: No Other/Comment: WEARS GLASSES - RENAL Hx Chronic Kidney Disease: No - ENDOCRINE/METABOLIC Hx Endocrine Disorders: Yes - HEMATOLOGICAL/ONCOLOGICAL Hx Blood Disorders: Yes Hx Cancer: Yes (Esophagus) - INTEGUMENTARY Hx Dermatological Problems: No - MUSCULOSKELETAL/RHEUMATOLOGICAL Hx Arthritis: Yes (R TKR; BACK PAIN) - GASTROINTESTINAL Hx Gastrointestinal Disorders: Yes Hx Gastroesophageal Reflux: Yes Other/Comment: hx of esophageal CA - GENITOURINARY/GYNECOLOGICAL Hx Genitourinary Disorders: Yes - PSYCHIATRIC Hx Substance Use: No - SURGICAL HISTORY Hx Surgeries: Yes Hx Breast Biopsy: Yes Hx Hysterectomy: Yes Hx Orthopedic Surgery: Yes (RTKR) Other/Comment: ESOPHAGEAL SX - ANESTHESIA Hx Anesthesia: Yes Hx Anesthesia Reactions: No Hx Malignant Hyperthermia: No Meds Allergies/Adverse Reactions: Allergies Allergy/AdvReac Type Severity Reaction Status Date / Time aspirin Allergy Severe RASH Verified 05/30/17 11:42 ciprofloxacin [From Cipro] Allergy Severe RASH Verified 05/30/17 11:42 ciprofloxacin HCl Allergy Severe RASH Verified 05/30/17 11:42 [From Cipro] nitrofurantoin Allergy Severe RASH Verified 05/30/17 11:42 [From Macrobid] nitrofurantoin Allergy Severe RASH Verified 05/30/17 11:42 macrocrystalline [From Macrobid] Penicillins Allergy Severe RASH Verified 05/30/17 11:42 Sulfa (Sulfonamide Allergy Severe RASH Verified 05/30/17 11:42 Antibiotics) azithromycin Allergy ITCHING Verified 05/30/17 11:42 - Medications Medications: Current Medications Acetaminophen (Tylenol 325mg Tab) 325 mg PO Q6 [facility] Last Admin: 07/17/17 05:26 Dose: 325 mg Acetylcysteine (Acetylcysteine 20%) 4 ml INH RQ6 [facility] Last Admin: 07/17/17 07:14 Dose: Not Given Albuterol/Ipratropium (Duoneb 3 Mg/0.5 Mg (3 Ml) Ud) 3 ml INH RQ6 [facility] Last Admin: 07/17/17 07:14 Dose: 3 ml Clopidogrel Bisulfate (Plavix) 75 mg PO DAILY [facility] Last Admin: 07/16/17 09:39 Dose: 75 mg Docusate Sodium (Colace) 100 mg PO DAILY [facility] Last Admin: 07/16/17 09:40 Dose: 100 mg Famotidine (Pepcid) 20 mg PO DAILY [facility] Last Admin: 07/16/17 09:40 Dose: 20 mg Folic Acid (Folic Acid) 1 mg PO DAILY [facility] Last Admin: 07/16/17 10:44 Dose: 1 mg Furosemide (Lasix) 40 mg IVP DAILY [facility] Last Admin: 07/16/17 09:40 Dose: 40 mg Furosemide (Lasix) 40 mg IVP ONCE PRN PRN Reason: GIVE PRIOR TO BLOOD TRANSFUSIO Last Admin: 07/16/17 23:15 Dose: 40 mg Guaifenesin/Dextromethorphan (Robitussin Dm) 5 ml PO Q4H PRN PRN Reason: Cough Last Admin: 07/16/17 23:55 Dose: 5 ml Aztreonam 2 gm/ Sodium (Chloride) 100 mls @ 200 mls/hr IVPB Q8H [facility] Last Admin: 07/17/17 02:33 Dose: 200 mls/hr Vancomycin/Sodium Chloride (Vancomycin 1 Gm/Ns 200 Ml) 1 gm in 200 mls @ 133.333 mls/hr IVPB Q24H [facility] Stop: 07/18/17 19:01 Last Admin: 07/16/17 18:59 Dose: 133.333 mls/hr Insulin Aspart (Novolog) 0 unit SC Q6 [facility] PRN Reason: Protocol Last Admin: 07/17/17 05:55 Dose: 4 unit Methylprednisolone (Solu-Medrol) 40 mg IVP Q8 [facility] Last Admin: 07/17/17 05:27 Dose: 40 mg Metoprolol Succinate (Toprol Xl) 12.5 mg PO Q12 [facility] Last Admin: 07/16/17 22:41 Dose: 12.5 mg Montelukast Sodium (Singulair) 10 mg PO DAILY [facility] Last Admin: 07/16/17 09:40 Dose: 10 mg Potassium Chloride (Klor-Con 10) 10 meq PO DAILY [facility] Last Admin: 07/16/17 09:40 Dose: 10 meq Rosuvastatin Calcium (Crestor) 10 mg PO HS [facility] Last Admin: 07/16/17 22:42 Dose: 10 mg Sennosides (Senokot Tab) 8.6 mg PO BID [facility] Last Admin: 07/16/17 18:56 Dose: 8.6 mg Physical Exam - Constitutional Appears: No Acute Distress, Chronically Ill, Other (obese) - Eye Exam Eye Exam: EOMI, PERRL - ENT Exam ENT Exam: Mucous Membranes Moist - Respiratory Exam Respiratory Exam: Rales, Rhonchi. absent: Clear to Auscultation Bilateral, Wheezes - Cardiovascular Exam Cardiovascular Exam: RRR, +S1, +S2 - GI/Abdominal Exam GI & Abdominal Exam: Normal Bowel Sounds, Soft. absent: Distended, Firm, Guarding, Organomegaly, Rigid, Tenderness Additional comments: evidence of prior surgery - healed midline scar - Rectal Exam Rectal Exam: Hemorrhoids (external). absent: Black Stool, Bloody Stool Additional comments: brown stool - Extremities Exam Extremities exam: Positive for: normal inspection. Negative for: pedal edema - Back Exam Additional comments: sacral decubitus - Neurological Exam Neurological exam: Alert, Oriented x3 - Psychiatric Exam Psychiatric exam: Normal Affect, Normal Mood - Skin Skin Exam: Dry, Warm Results - Vital Signs Recent Vital Signs: Last Vital Signs Temp 97.4 F L 07/17/17 07:40 Pulse 96 H 07/17/17 07:40 Resp 20 07/17/17 07:40 BP 134/85 07/17/17 07:40 Pulse Ox 98 07/17/17 07:40 - Labs Result Diagrams: 07/17/17 07:04 07/17/17 07:04 Labs: Laboratory Results - last 24 hr 07/16/17 07/16/17 07/16/17 09:06 09:06 09:06 WBC RBC Hgb Hct MCV MCH MCHC RDW Plt Count MPV Neutrophils % (Manual) 93 H Lymphocytes % (Manual) 3 L Monocytes % (Manual) 3 Myelocytes % 1 H Platelet Estimate Normal Hypochromasia (manual) Slight Poikilocytosis (manual Slight Anisocytosis (manual) Slight Macrocytosis (manual) Slight Tear Drop Cells Slight Sodium Potassium Chloride Carbon Dioxide Anion Gap BUN Creatinine Est GFR ( Amer) Est GFR (Non-Af Amer) POC Glucose (mg/dL) Random Glucose Calcium NT-Pro-B Natriuret Pep 9630 H Vancomycin Trough 23.7 H Blood Type Blood Type Confirm Antibody Screen 07/16/17 07/16/17 07/16/17 11:50 16:15 20:59 WBC RBC Hgb Hct MCV MCH MCHC RDW Plt Count MPV Neutrophils % (Manual) Lymphocytes % (Manual) Monocytes % (Manual) Myelocytes % Platelet Estimate Hypochromasia (manual) Poikilocytosis (manual Anisocytosis (manual) Macrocytosis (manual) Tear Drop Cells Sodium Potassium Chloride Carbon Dioxide Anion Gap BUN Creatinine Est GFR ( Amer) Est GFR (Non-Af Amer) POC Glucose (mg/dL) 281 H 266 H Random Glucose Calcium NT-Pro-B Natriuret Pep Vancomycin Trough Blood Type A POSITIVE Blood Type Confirm A POSITIVE Antibody Screen Negative 07/16/17 07/16/17 07/17/17 21:17 23:49 05:50 WBC RBC Hgb Hct MCV MCH MCHC RDW Plt Count MPV Neutrophils % (Manual) Lymphocytes % (Manual) Monocytes % (Manual) Myelocytes % Platelet Estimate Hypochromasia (manual) Poikilocytosis (manual Anisocytosis (manual) Macrocytosis (manual) Tear Drop Cells Sodium Potassium Chloride Carbon Dioxide Anion Gap BUN Creatinine Est GFR ( Amer) Est GFR (Non-Af Amer) POC Glucose (mg/dL) 297 H 311 H 277 H Random Glucose Calcium NT-Pro-B Natriuret Pep Vancomycin Trough Blood Type Blood Type Confirm Antibody Screen 07/17/17 07/17/17 07:04 07:04 WBC 17.6 H RBC 3.08 L Hgb 9.9 L D Hct 29.0 L MCV 94.3 D MCH 32.0 H MCHC 34.0 RDW 18.6 H Plt Count 255 MPV 7.5 Neutrophils % (Manual) Lymphocytes % (Manual) Monocytes % (Manual) Myelocytes % Platelet Estimate Hypochromasia (manual) Poikilocytosis (manual Anisocytosis (manual) Macrocytosis (manual) Tear Drop Cells Sodium 134 Potassium 3.1 L Chloride 98 Carbon Dioxide 27 Anion Gap 13 BUN 20 H Creatinine 0.6 L Est GFR ( Amer) > 60 Est GFR (Non-Af Amer) > 60 POC Glucose (mg/dL) Random Glucose 264 H Calcium 8.6 NT-Pro-B Natriuret Pep Vancomycin Trough Blood Type Blood Type Confirm Antibody Screen Assessment & Plan - Assessment and Plan (Free Text) Assessment: Patient is a 81 year old female with PMHx significant for esophageal cancer s/p esophagectomy (prior to 2013 per imaging review), COPD, HTN, hyperlipidemia, GERD, COPD who initially presented [place] the hospital from [place] with worsening SOB -Chronic macrocytic anemia -Acute COPD exacerbation, resolving -Pneumonia - ongoing therapy Plan: -Brown stool on rectal exam with no noted history of melena or hematochezia -Given history of esophageal cancer/esophagectomy - need to find out if patient has had appropriate follow up and when most recent EGD was -With anemia, it would be prudent to reevaluate the upper GI tract given her history of malignancy once patient is medically stable for procedure -At present, with ongoing pulmonary issues from COPD and pneumonia, risk of procedure outweighs benefits as there is no overt/active GI bleeding -Would recommend medical optimization, transfusion support as needed -Will continue to reach out to family to obtain pertinent medical history - Date & Time Date: 07/17/17 Time: 07:10 <Tam Goss - Last Filed: 07/17/17 15:38> Meds - Medications Medications: Current Medications Acetaminophen (Tylenol 325mg Tab) 325 mg PO Q6 [facility] Last Admin: 07/17/17 05:26 Dose: 325 mg Acetylcysteine (Acetylcysteine 20%) 4 ml INH RQ6 [facility] Last Admin: 07/17/17 07:14 Dose: Not Given Clopidogrel Bisulfate (Plavix) 75 mg PO DAILY [facility] Last Admin: 07/17/17 10:41 Dose: 75 mg Docusate Sodium (Colace) 100 mg PO DAILY [facility] Last Admin: 07/17/17 10:41 Dose: 100 mg Famotidine (Pepcid) 20 mg PO DAILY [facility] Last Admin: 07/17/17 10:41 Dose: 20 mg Folic Acid (Folic Acid) 1 mg PO DAILY [facility] Last Admin: 07/17/17 10:42 Dose: 1 mg Furosemide (Lasix) 40 mg IVP DAILY [facility] Last Admin: 07/17/17 10:42 Dose: 40 mg Furosemide (Lasix) 40 mg IVP ONCE PRN PRN Reason: GIVE PRIOR TO BLOOD TRANSFUSIO Last Admin: 07/16/17 23:15 Dose: 40 mg Guaifenesin/Dextromethorphan (Robitussin Dm) 5 ml PO Q4H PRN PRN Reason: Cough Last Admin: 07/17/17 10:42 Dose: 5 ml Aztreonam 2 gm/ Sodium (Chloride) 100 mls @ 200 mls/hr IVPB Q8H [facility] Last Admin: 07/17/17 11:03 Dose: 200 mls/hr Vancomycin/Sodium Chloride (Vancomycin 1 Gm/Ns 200 Ml) 1 gm in 200 mls @ 133.333 mls/hr IVPB Q24H [facility] Stop: 07/18/17 19:01 Last Admin: 07/16/17 18:59 Dose: 133.333 mls/hr Insulin Aspart (Novolog) 0 unit SC Q6 [facility] PRN Reason: Protocol Last Admin: 07/17/17 11:50 Dose: 4 unit Methylprednisolone (Solu-Medrol) 40 mg IVP Q8 [facility] Last Admin: 07/17/17 13:08 Dose: 40 mg Metoprolol Succinate (Toprol Xl) 12.5 mg PO Q12 [facility] Last Admin: 07/17/17 10:41 Dose: 12.5 mg Montelukast Sodium (Singulair) 10 mg PO DAILY [facility] Last Admin: 07/17/17 10:42 Dose: 10 mg Potassium Chloride (Klor-Con 10) 10 meq PO DAILY [facility] Last Admin: 07/17/17 10:42 Dose: 10 meq Rosuvastatin Calcium (Crestor) 10 mg PO HS [facility] Last Admin: 07/16/17 22:42 Dose: 10 mg Sennosides (Senokot Tab) 8.6 mg PO BID [facility] Last Admin: 07/17/17 10:42 Dose: 8.6 mg Results - Vital Signs Recent Vital Signs: Last Vital Signs Temp 97.4 F L 07/17/17 07:40 Pulse 100 H 07/17/17 07:45 Resp 20 07/17/17 07:40 BP 138/89 07/17/17 10:42 Pulse Ox 98 07/17/17 07:40 - Labs Result Diagrams: 07/17/17 07:04 07/17/17 07:04 Labs: Laboratory Results - last 24 hr 07/16/17 07/16/17 07/16/17 16:15 20:59 21:17 WBC RBC Hgb Hct MCV MCH MCHC RDW Plt Count MPV Sodium Potassium Chloride Carbon Dioxide Anion Gap BUN Creatinine Est GFR ( Amer) Est GFR (Non-Af Amer) POC Glucose (mg/dL) 266 H 297 H Random Glucose Calcium Blood Type A POSITIVE Blood Type Confirm A POSITIVE Antibody Screen Negative 07/16/17 07/17/17 07/17/17 23:49 05:50 07:04 WBC 17.6 H RBC 3.08 L Hgb 9.9 L D Hct 29.0 L MCV 94.3 D MCH 32.0 H MCHC 34.0 RDW 18.6 H Plt Count 255 MPV 7.5 Sodium Potassium Chloride Carbon Dioxide Anion Gap BUN Creatinine Est GFR ( Amer) Est GFR (Non-Af Amer) POC Glucose (mg/dL) 311 H 277 H Random Glucose Calcium Blood Type Blood Type Confirm Antibody Screen 07/17/17 07/17/17 07:04 11:55 WBC RBC Hgb Hct MCV MCH MCHC RDW Plt Count MPV Sodium 134 Potassium 3.1 L Chloride 98 Carbon Dioxide 27 Anion Gap 13 BUN 20 H Creatinine 0.6 L Est GFR ( Amer) > 60 Est GFR (Non-Af Amer) > 60 POC Glucose (mg/dL) 292 H Random Glucose 264 H Calcium 8.6 Blood Type Blood Type Confirm Antibody Screen Attending/Attestation - Attestation I have personally seen and examined this patient.: Yes I have fully participated in the care of the patient.: Yes I have reviewed all pertinent clinical information: Yes Notes (Text): 07/17/17 15:31 I have seen and examined patient with GI fellow. Agree with above documentation with the following additions. In brief, this is a 81 year old female with history of esophageal cancer s/p esophagectomy, COPD, HTN, GERD who initially presented to hospital with complaint of progressive dyspnea. She is currently being treated for pneumonia and UTI. GI called for progressive anemia. She denies abdominal pain, nausea, vomiting, fever/chills, weight loss , or visible rectal bleeding. She claims to have normal formed bowel movements. She has never had any colonoscopy and has not had any endoscopic evaluation since after cancer diagnosis and surgical intervention. History of esophageal cancer s/p esophagectomy COPD HTN GERD Anemia, fecal occult blood positive Respiratory distress, pneumonia UTI - Diet as tolerated - Continue to monitor H/H, s/p PRBC transfusion - Continue with PPI therapy - Continue with antibiotic therapy - Patient would certainly benefit from endoscopic evaluation of worsening anemia , particularly since she has not had any follow up since after esophagectomy. However, given current pulmonary disease, risk of procedure will outweigh potential benefits and will therefore defer any further workup at this time. Suggest additional outpatient follow up after resolution of acute pulmonary issues. Will sign off case, please reconsult as necessary, thank you.
[2017-07-17] MEDS ORDERED: Potassium Chloride 20 mEq ER Tab PO ONE ×2 (10:30→11:45)
[2017-07-17] MEDS: Metoprolol Succinate 12.5 mg XL PO SCH (10:41)
[2017-07-17] MEDS: Potassium Chloride 10 mEq ER Tab PO SCH (10:42)
[2017-07-17] MEDS: guaiFENesin DM 100 mg-10 mg/5 ml UD PO PRN (10:42)
--- NOTE | 2017-07-17 12:00 | CP.PCM.PN ---
Subjective - Date & Time of Evaluation Date of Evaluation: 07/17/17 Time of Evaluation: 07:00 - Subjective Subjective: IV ANTIBIOTICS IN PROGRESS RENEWED TODAY NEEDS 3 WEEKS RX Objective - Vital Signs/Intake and Output Vital Signs (last 24 hours): Temp Pulse Resp BP Pulse Ox 97.4 F L 96 H 20 138/89 98 07/17/17 07:40 07/17/17 07:40 07/17/17 07:40 07/17/17 10:42 07/17/17 07:40 Intake and Output: 07/17/17 07/17/17 06:59 18:59 Intake Total 825 Output Total 1000 Balance -175 - Medications Medications: Current Medications Acetaminophen (Tylenol 325mg Tab) 325 mg PO Q6 [facility] Last Admin: 07/17/17 05:26 Dose: 325 mg Acetylcysteine (Acetylcysteine 20%) 4 ml INH RQ6 [facility] Last Admin: 07/17/17 07:14 Dose: Not Given Albuterol/Ipratropium (Duoneb 3 Mg/0.5 Mg (3 Ml) Ud) 3 ml INH RQ6 [facility] Last Admin: 07/17/17 07:14 Dose: 3 ml Clopidogrel Bisulfate (Plavix) 75 mg PO DAILY [facility] Last Admin: 07/17/17 10:41 Dose: 75 mg Docusate Sodium (Colace) 100 mg PO DAILY [facility] Last Admin: 07/17/17 10:41 Dose: 100 mg Famotidine (Pepcid) 20 mg PO DAILY [facility] Last Admin: 07/17/17 10:41 Dose: 20 mg Folic Acid (Folic Acid) 1 mg PO DAILY [facility] Last Admin: 07/17/17 10:42 Dose: 1 mg Furosemide (Lasix) 40 mg IVP DAILY [facility] Last Admin: 07/17/17 10:42 Dose: 40 mg Furosemide (Lasix) 40 mg IVP ONCE PRN PRN Reason: GIVE PRIOR TO BLOOD TRANSFUSIO Last Admin: 07/16/17 23:15 Dose: 40 mg Guaifenesin/Dextromethorphan (Robitussin Dm) 5 ml PO Q4H PRN PRN Reason: Cough Last Admin: 07/17/17 10:42 Dose: 5 ml Aztreonam 2 gm/ Sodium (Chloride) 100 mls @ 200 mls/hr IVPB Q8H [facility] Last Admin: 07/17/17 11:03 Dose: 200 mls/hr Vancomycin/Sodium Chloride (Vancomycin 1 Gm/Ns 200 Ml) 1 gm in 200 mls @ 133.333 mls/hr IVPB Q24H [facility] Stop: 07/18/17 19:01 Last Admin: 07/16/17 18:59 Dose: 133.333 mls/hr Insulin Aspart (Novolog) 0 unit SC Q6 [facility] PRN Reason: Protocol Last Admin: 07/17/17 05:55 Dose: 4 unit Methylprednisolone (Solu-Medrol) 40 mg IVP Q8 [facility] Last Admin: 07/17/17 05:27 Dose: 40 mg Metoprolol Succinate (Toprol Xl) 12.5 mg PO Q12 [facility] Last Admin: 07/17/17 10:41 Dose: 12.5 mg Montelukast Sodium (Singulair) 10 mg PO DAILY [facility] Last Admin: 07/17/17 10:42 Dose: 10 mg Potassium Chloride (Klor-Con 10) 10 meq PO DAILY [facility] Last Admin: 07/17/17 10:42 Dose: 10 meq Rosuvastatin Calcium (Crestor) 10 mg PO HS [facility] Last Admin: 07/16/17 22:42 Dose: 10 mg Sennosides (Senokot Tab) 8.6 mg PO BID [facility] Last Admin: 07/17/17 10:42 Dose: 8.6 mg - Labs Labs: 07/17/17 07:04 07/17/17 07:04 PT 13.6 SECONDS (9.7-12.2) H 07/06/17 11:09 INR 1.2 07/06/17 11:09 APTT 24 SECONDS (21-34) 07/06/17 11:09 Assessment and Plan (1) Acute urinary tract infection Status: Acute (2) COPD exacerbation Status: Acute (3) Dehydration symptoms Status: Acute (4) Dyspnea Status: Acute (5) Pneumonia Status: Acute (6) Weakness Status: Acute
[2017-07-17 16:02] VITALS: PULSE 101
[2017-07-17 16:18] VITALS: BP 112/68; TEMP 98.2; O2SAT 95
[2017-07-17] MEDS: Vancomycin 1 gm/NS 200 ml 1 GM/200 ML BAG IVPB SCH (17:00)
--- NOTE | 2017-07-17 17:44 | CP.PCM.PN ---
Subjective - Date & Time of Evaluation Date of Evaluation: 07/17/17 Time of Evaluation: 12:00 - Subjective Subjective: clinically same Objective - Vital Signs/Intake and Output Vital Signs (last 24 hours): Temp Pulse Resp BP Pulse Ox 98.2 F 101 H 20 112/68 95 07/17/17 15:00 07/17/17 16:00 07/17/17 15:00 07/17/17 15:00 07/17/17 15:00 Intake and Output: 07/17/17 07/17/17 06:59 18:59 Intake Total 825 460 Output Total 1000 1200 Balance -175 -740 - Medications Medications: Current Medications Acetaminophen (Tylenol 325mg Tab) 325 mg PO Q6 [facility] Last Admin: 07/17/17 05:26 Dose: 325 mg Acetylcysteine (Acetylcysteine 20%) 4 ml INH RQ6 [facility] Last Admin: 07/17/17 07:14 Dose: Not Given Clopidogrel Bisulfate (Plavix) 75 mg PO DAILY [facility] Last Admin: 07/17/17 10:41 Dose: 75 mg Docusate Sodium (Colace) 100 mg PO DAILY [facility] Last Admin: 07/17/17 10:41 Dose: 100 mg Famotidine (Pepcid) 20 mg PO DAILY [facility] Last Admin: 07/17/17 10:41 Dose: 20 mg Folic Acid (Folic Acid) 1 mg PO DAILY [facility] Last Admin: 07/17/17 10:42 Dose: 1 mg Furosemide (Lasix) 40 mg IVP DAILY [facility] Last Admin: 07/17/17 10:42 Dose: 40 mg Furosemide (Lasix) 40 mg IVP ONCE PRN PRN Reason: GIVE PRIOR TO BLOOD TRANSFUSIO Last Admin: 07/16/17 23:15 Dose: 40 mg Guaifenesin/Dextromethorphan (Robitussin Dm) 5 ml PO Q4H PRN PRN Reason: Cough Last Admin: 07/17/17 10:42 Dose: 5 ml Aztreonam 2 gm/ Sodium (Chloride) 100 mls @ 200 mls/hr IVPB Q8H [facility] Last Admin: 07/17/17 11:03 Dose: 200 mls/hr Vancomycin/Sodium Chloride (Vancomycin 1 Gm/Ns 200 Ml) 1 gm in 200 mls @ 133.333 mls/hr IVPB Q24H [facility] Stop: 07/18/17 19:01 Last Admin: 07/16/17 18:59 Dose: 133.333 mls/hr Insulin Aspart (Novolog) 0 unit SC Q6 [facility] PRN Reason: Protocol Last Admin: 07/17/17 11:50 Dose: 4 unit Methylprednisolone (Solu-Medrol) 40 mg IVP Q8 [facility] Last Admin: 07/17/17 13:08 Dose: 40 mg Metoprolol Succinate (Toprol Xl) 12.5 mg PO Q12 [facility] Last Admin: 07/17/17 10:41 Dose: 12.5 mg Montelukast Sodium (Singulair) 10 mg PO DAILY [facility] Last Admin: 07/17/17 10:42 Dose: 10 mg Potassium Chloride (Klor-Con 10) 10 meq PO DAILY [facility] Last Admin: 07/17/17 10:42 Dose: 10 meq Rosuvastatin Calcium (Crestor) 10 mg PO HS [facility] Last Admin: 07/16/17 22:42 Dose: 10 mg Sennosides (Senokot Tab) 8.6 mg PO BID [facility] Last Admin: 07/17/17 10:42 Dose: 8.6 mg - Labs Labs: 07/17/17 07:04 07/17/17 07:04 PT 13.6 SECONDS (9.7-12.2) H 07/06/17 11:09 INR 1.2 07/06/17 11:09 APTT 24 SECONDS (21-34) 07/06/17 11:09 - Constitutional Appears: Well - Head Exam Head Exam: ATRAUMATIC, NORMAL INSPECTION, NORMOCEPHALIC - Eye Exam Eye Exam: EOMI, Normal appearance, PERRL Pupil Exam: NORMAL ACCOMODATION, PERRL - ENT Exam ENT Exam: Mucous Membranes Moist, Normal Exam - Neck Exam Neck Exam: Full ROM, Normal Inspection. absent: Lymphadenopathy - Respiratory Exam Respiratory Exam: Decreased Breath Sounds - Cardiovascular Exam Cardiovascular Exam: REGULAR RHYTHM, +S1, +S2 - GI/Abdominal Exam GI & Abdominal Exam: Soft, Diminished Bowel Sounds - Rectal Exam Rectal Exam: Deferred Assessment and Plan (1) Acute urinary tract infection Status: Acute (2) Allergic urticaria Status: Acute (3) Asthma Status: Acute (4) Asthma exacerbation Status: Acute (5) Bronchitis Status: Acute (6) COPD exacerbation Status: Acute (7) Constipation Status: Acute (8) Dehydration symptoms Status: Acute (9) Dyspnea Status: Acute (10) Dyspnea Status: Acute (11) Influenza Status: Acute (12) Pneumonia Status: Acute (13) Prophylactic measure Status: Acute (14) UTI (urinary tract infection) Status: Acute (15) Weakness Status: Acute (16) GERD (gastroesophageal reflux disease) Status: Chronic (17) HTN (hypertension) Status: Chronic (18) Hyperlipidemia Status: Chronic (19) Hypertension Status: Chronic
--- NOTE | 2017-07-17 17:44 | CP.PCM.PN ---
Subjective - Date & Time of Evaluation Date of Evaluation: 07/17/17 Time of Evaluation: 17:44 - Subjective Subjective: PATIENT ADMITTEED FOR SEPSIS AND DYSPNEA AAOX3; DENIES CHEST PAIN OR SOB NO SIGN F DISTRESS NOTED Objective - Vital Signs/Intake and Output Vital Signs (last 24 hours): Temp Pulse Resp BP Pulse Ox 98.2 F 101 H 20 112/68 95 07/17/17 15:00 07/17/17 16:00 07/17/17 15:00 07/17/17 15:00 07/17/17 15:00 Intake and Output: 07/17/17 07/17/17 06:59 18:59 Intake Total 825 460 Output Total 1000 1200 Balance -175 -740 - Medications Medications: Current Medications Acetaminophen (Tylenol 325mg Tab) 325 mg PO Q6 [facility] Last Admin: 07/17/17 05:26 Dose: 325 mg Acetylcysteine (Acetylcysteine 20%) 4 ml INH RQ6 [facility] Last Admin: 07/17/17 07:14 Dose: Not Given Clopidogrel Bisulfate (Plavix) 75 mg PO DAILY [facility] Last Admin: 07/17/17 10:41 Dose: 75 mg Docusate Sodium (Colace) 100 mg PO DAILY [facility] Last Admin: 07/17/17 10:41 Dose: 100 mg Famotidine (Pepcid) 20 mg PO DAILY [facility] Last Admin: 07/17/17 10:41 Dose: 20 mg Folic Acid (Folic Acid) 1 mg PO DAILY [facility] Last Admin: 07/17/17 10:42 Dose: 1 mg Furosemide (Lasix) 40 mg IVP DAILY [facility] Last Admin: 07/17/17 10:42 Dose: 40 mg Furosemide (Lasix) 40 mg IVP ONCE PRN PRN Reason: GIVE PRIOR TO BLOOD TRANSFUSIO Last Admin: 07/16/17 23:15 Dose: 40 mg Guaifenesin/Dextromethorphan (Robitussin Dm) 5 ml PO Q4H PRN PRN Reason: Cough Last Admin: 07/17/17 10:42 Dose: 5 ml Aztreonam 2 gm/ Sodium (Chloride) 100 mls @ 200 mls/hr IVPB Q8H [facility] Last Admin: 07/17/17 11:03 Dose: 200 mls/hr Vancomycin/Sodium Chloride (Vancomycin 1 Gm/Ns 200 Ml) 1 gm in 200 mls @ 133.333 mls/hr IVPB Q24H [facility] Stop: 07/18/17 19:01 Last Admin: 07/16/17 18:59 Dose: 133.333 mls/hr Insulin Aspart (Novolog) 0 unit SC Q6 [facility] PRN Reason: Protocol Last Admin: 07/17/17 11:50 Dose: 4 unit Methylprednisolone (Solu-Medrol) 40 mg IVP Q8 [facility] Last Admin: 07/17/17 13:08 Dose: 40 mg Metoprolol Succinate (Toprol Xl) 12.5 mg PO Q12 [facility] Last Admin: 07/17/17 10:41 Dose: 12.5 mg Montelukast Sodium (Singulair) 10 mg PO DAILY [facility] Last Admin: 07/17/17 10:42 Dose: 10 mg Potassium Chloride (Klor-Con 10) 10 meq PO DAILY [facility] Last Admin: 07/17/17 10:42 Dose: 10 meq Rosuvastatin Calcium (Crestor) 10 mg PO HS [facility] Last Admin: 07/16/17 22:42 Dose: 10 mg Sennosides (Senokot Tab) 8.6 mg PO BID [facility] Last Admin: 07/17/17 10:42 Dose: 8.6 mg - Labs Labs: 07/17/17 07:04 07/17/17 07:04 PT 13.6 SECONDS (9.7-12.2) H 07/06/17 11:09 INR 1.2 07/06/17 11:09 APTT 24 SECONDS (21-34) 07/06/17 11:09 Assessment and Plan - Assessment and Plan (Free Text) Assessment: PATIENT SEEN AND EXAMINED AT THE [facility] PATIENT WHEEZING IMPROVE PER DR WILSON BRONCHOSCOPY LATER WHEN MEDICALLY OPTIMIZED PER DR BRADLEY NO SGN OF ACTIVE BLEEDING/ BLOOD TRANSFUSE H IS 8.4/ NO INTERVENTION AT THIS TIME ARCE WAS REMOVED AND PATIENT VOID PRIOR TO DC DISCUSS WITH PMD WHO AGREE AND CLEAR FOR DC PLACE UNDER THE SERVICE OF DR Cristino MERCADO AT [facility] --CALL FOR ADMITTING ORDER FOLLOW UP WITH STEVE AT HIS OFFICE ---CALL FOR APPOINTMENT FOLLOW UP WITH DR BRADLEY AT HIS OFFICE ---CALL FOR APPOINTMENT CONTINUE ALL YOUR HOME MEDICATION ORDER NEW PRESCRIPTION GIVEN AZACTAM 2G IV Q8 H FOR 21 DAYS VANCO 1 G Q24 H IV FOR 21 DAYS ACTIVITY TOLERATED AND PER FACILITY PROTOCOL CALL DR Cristino MERCADO FOR FURTHER ORDER DISCUSS WITH FAMILY WHO AGREE AND VERBALIZED UNDERSTANDING
--- NOTE | 2017-07-18 11:38 | PN ---
DATE: NEUROLOGIC PROBLEM: Change in mental status, abnormal MRI of the brain, with meningioma. PHYSICAL EXAMINATION: VITAL SIGNS: Blood pressure 126/70, mean artery pressure of 105, respiratory rate 16, temperature 98.0 Fahrenheit, pulse rate 95. The patient is comfortably lying down. Speech is clear. She knows in the hospital. She follows one to two step commands. She moves all four extremities against gravity. From neurological point of view, patient is stable. Should be getting out of bed, DVT prophylaxis. Her electroencephalogram does not show any paroxysmal activities. I strongly recommended to continue the present management, out of bed, physical therapy, no antiepileptics needed. May be she need another CT of the head or MRI of the brain may be 6 months from now, due to have a followup on meningioma. No further intervention is needed. At this time, I will like to sign her off from neurological followup. In case, if any changes in neuro status, please do not hesitate to call me. Chito Hua MD
== END 2017-07-17 22:01 | DRG 177 ==
LOC: C.ER 10:32 → C.9E 12:32 → C.9I 13:38 → C.5S 07-07 20:57
PROVIDERS: ADMIT Internal Medicine Nephrology; ATTEND Internal Medicine Nephrology
PROC: 5A09557 Assistance with Respiratory Ventilation, Greater than 96 Consecutive Hours, Continuous Positive Airway Pressure (ICD-10-PCS; principal; 2017-07-06)
DX: J69.0 Pneumonitis due to inhalation of food and vomit (principal); A41.9 Sepsis, unspecified organism; R65.20 Severe sepsis without septic shock; N17.9 Acute kidney failure, unspecified; I50.30 Unspecified diastolic (congestive) heart failure; I11.0 Hypertensive heart disease with heart failure; E87.1 Hypo-osmolality and hyponatremia; J45.901 Unspecified asthma with (acute) exacerbation; J44.0 Chronic obstructive pulmonary disease with (acute) lower respiratory infection; J44.1 Chronic obstructive pulmonary disease with (acute) exacerbation; N39.0 Urinary tract infection, site not specified; M19.90 Unspecified osteoarthritis, unspecified site; E78.00 Pure hypercholesterolemia, unspecified; K21.9 Gastro-esophageal reflux disease without esophagitis; Z85.01 Personal history of malignant neoplasm of esophagus; Z88.6 Allergy status to analgesic agent; E78.5 Hyperlipidemia, unspecified; R53.1 Weakness; J32.8 Other chronic sinusitis; G30.1 Alzheimer's disease with late onset; F02.80 Dementia in other diseases classified elsewhere, unspecified severity, without behavioral disturbance, psychotic disturbance, mood disturbance, and anxiety

== ENCOUNTER 2017-07-20 09:40 | Inpatient (IN) | payer MEDICARE, OTHER ==
[2017-07-20 09:49] VITALS: BMI 31.2
--- NOTE | 2017-07-20 10:14 | C.PDOC ---
History Of Present Illness LIMITED DUE TO CLIN COND 81 Y/O FEMALE BIBA FOR AMS LOW ALTITUDE [employer] GUNNER. PER EMS, POSSIBLE AMS SINCE 0400 BUT 0800 PER [facility] STAFF. PATIENT HAS DECREASED VERBAL RESPONSIVENESS, +RESPONSE TO STERNAL RUB PER EMS. RESPIRATORY DECOMPENSATION EN ROUTE 80% O2, INTUBATED FOR RESPIRATORY DISTRESS WITHOUT DIFFERENCE PER EMS. PALP PULSE EN ROUTE. S/P KETAMINE AND ROCURONIUM BY EMS. PT W MULT ALLERGIES, PT RECEIVING VANCOMYCIN INFUSION UPON EMS ARRIVAL PER FAMILY, PT HAS BEEN HOSPITALIZED AND REHAB X 2 FOR INITIAL PNEUMONIA/FLU NOW W BACTEREMIA SINCE 03/2017. PREVIOUSLY AO3, AMBUL AND FUNCTIONAL. NOW DECONDITIONED, UNABLE TO STAND AND W INTERMIT PERIODS OF "LOOPINESS" SINCE 2016. HAS BEEN BASELINE MS X 1 WEEK. EXAM MOD DIST HEENT PUPILS SLUGGISH, B/L NASAL TRUMPETS PLACED; ETT IN PLACE, NO BLOOD. NECK OBESE, NO GROSS DEFORM LUNGS CTA B/L, EQUAL CHEST RISE W VENT CV RRR SINUS TACH ABD NEG NEURO NO SPONT MOVEMENT, NO RESPONSE TO PAIN S/P ROCURONIUM SKIN +PRESSURE ULCERS B/L BUTTOCKS REMAINDER NEG Time Seen by Provider: 07/20/17 09:53 Chief Complaint (Nursing): Respiratory Distress History Per: Family History/Exam Limitations: Clinical Condition Onset/Duration Of Symptoms: Hrs Past Medical History Reviewed: Historical Data, Nursing Documentation, Vital Signs Vital Signs: Last Vital Signs Temp 100.9 F H 07/20/17 10:16 Pulse 111 H 07/20/17 11:25 Resp 12 07/20/17 11:22 BP 52/25 L 07/20/17 11:25 Pulse Ox 100 07/20/17 11:30 - Medical History PMH: Arthritis (R TKR; BACK PAIN), Asthma, Bronchitis, COPD, HTN, Hypercholesterolemia, Pneumonia Surgical History: No Surg Hx - [facility] Procedures ASSISTANCE WITH RESPIRATORY VENTILATION, 24-96 HRS, CPAP (04/25/17) ASSISTANCE WITH RESPIRATORY VENTILATION, >96 HRS, CPAP (07/06/17) INSERTION OF INFUSION DEV INTO SUP VENA CAVA, PERC APPROACH (04/25/17) INSPECTION OF LARYNX, ENDO (04/25/17) Family History: States: No Known Family Hx - Social History Hx Tobacco Use: No Hx Alcohol Use: No Hx Substance Use: No - Immunization History Hx Tetanus Toxoid Vaccination: No Hx Influenza Vaccination: Yes (04/05/2017) Hx Pneumococcal Vaccination: Yes (04/05/2017) Review Of Systems Review Of Systems: ROS cannot be obtained secondary to pt's inabilty to answer questions. (Patient's clinical condition) Physical Exam - Physical Exam Appears: Other (Moderate distress) Skin: Warm, Dry, Other (Pressure ulcers bilaterally to buttocks) Head: Atraumatic, Normacephalic Eye(s): bilateral: Other (pupils sluggish ) Nose: Other (Trumpets placed,) Oral Mucosa: Moist Throat: Other (ETT in place. No blood) Neck: Other (obese neck, no gross deformity) Chest: Other (Equal chest rise with vent) Cardiovascular: Rhythm Regular, Other (Tachycardic) Respiratory: Normal Breath Sounds, No Rales, No Rhonchi, No Wheezing Gastrointestinal/Abdominal: Soft, No Tenderness, No Guarding, No Rebound Neurological/Psych: No Response To Commands (Or pain s/p rocuronium), Other (No spontaneous movement) ED Course And Treatment - Laboratory Results Result Diagrams: 07/20/17 10:42 07/20/17 10:42 ECG: Interpreted By [facility] ECG Rhythm: Sinus Tachycardia Rate From EC (BPM) O2 Sat by Pulse Oximetry: 100 (RA) Pulse Ox Interpretation: Normal Interpretation Of Abnormal: ST DEP 1, 22, V4-5 - Radiology CXR: Interpreted by [facility] CXR Interpretation: Yes: Infiltrates Progress - Re-Evaluation Re-evaluation Note: 07/20/17 10:14 S/P NS 1L, SBP 81. STABLE ON VENT FAMILY @ BEDSIDE. PT IS FULL CODE PENDING D/W REST OF FAMILY MEMBERS 07/20/17 11:11 S/P 4L BOLUS, PERSIST HYPOTENSION. EXAM UNCH. 07/20/17 11:26 D/W DR Cristino MERCADO WILL ADMIT 07/20/17 11:28 D/W DR Demetris MERCADO C/F ICU, ACCEPTS 07/20/17 11:54 FAMILY @ BEDSIDE, STATE PT IS TO BE DNR. EXAM UNCH, PRESSOR IN PROGRESS - Data Reviewed Data Reviewed: Lab, Diagnostic imaging, EKG, Old records - Critical Care Citical Care: Excluding Proc Time Critical Care Time: 120 minutes - Continuity of Care Discussed patient case with:: Family-HIPPA compliant, PMD Discussed pt. case with aviation consultant/specialty: Pulmonary/Crit. Care Disposition Counseled Patient/Family Regarding: Studies Performed, Diagnosis - Disposition Disposition: HOSPITALIZED Disposition Time: 11:29 Condition: CRITICAL - POA Present On Arrival: Poor Glycemic Control, Pressure Ulcer - Clinical Impression Clinical Impression: Respiratory failure, Septic shock, Hypokalemia - Scribe Statement The provider has reviewed the documentation as recorded by the Cullenibkaur Bass All medical record entries made by the Scribe were at my direction and personally dictated by me. I have reviewed the chart and agree that the record accurately reflects my personal performance of the history, physical exam, medical decision making, and the department course for this patient. I have also personally directed, reviewed, and agree with the discharge instructions and disposition. Decision To Admit - Pt Status Changed To: Hospital Disposition Of: Inpatient - Admit Certification Admit to Inpatient:: After my assessment, the patient will require hospitalization for at least two midnights. This is because of the severity of symptoms shown, intensity of services needed, and/or the medical risk in this patient being treated as an outpatient. - InPatient: Physician Admission Certification:: SEE NOTE - . Bed Request Type: ICU Admitting Physician: Kalpesh Mercado Patient Diagnosis: Respiratory failure, Septic shock, Hypokalemia PROCEDURES - Feeding Tube Replacement Type of Tube: nasogastric Insertion Site Prior to Procedure: clean Verification of Placement: auscultation, other (+GASTRIC CONTENS W ASPIRATION) Tube Secured by: tape/dressing Patient Tolerated Procedure: well
[2017-07-20 10:48] LABS: SQUAMOUS EPITHIAL 1 /hpf (0-5); URINE BILIRUBIN NEGATIVE (NEGATIVE); URINE BLOOD NEGATIVE (NEGATIVE); URINE CLARITY Hazy (Clear); URINE COLOR Yellow (YELLOW); URINE GLUCOSE (UA) NORMAL (Normal); URINE LEUKOCYTE ESTERASE 3+ Leu/uL (Negative); URINE NITRATE NEGATIVE (NEGATIVE); URINE PROTEIN 2+ mg/dL (NEGATIVE); URINE UROBILINOGEN NORMAL mg/dL (0.2-1.0)
[2017-07-20 10:49] LABS: BASO % 0.2 % (0.0-2.0); EOS % 0.2 % (0.0-4.0); HEMOGLOBIN 9.8 g/dL (11.0-16.0); LYMPH % 6.2 % (20.0-40.0); MEAN CELL VOLUME 95.8 fL (81.0-99.0); MEAN CORPUSCULAR HEMOGLOBIN 32.1 pg (27.0-31.0); MEAN CORPUSCULAR HGB CONC 33.5 g/dL (33.0-37.0); MEAN PLATELET VOLUME 7.6 fL (7.2-11.7); MONO # 0.9 K/uL (0.0-0.8); MONO % 5.4 % (0.0-10.0); NEUT # 14.5 K/uL (1.8-7.0); NRBC % 0.2 % (0.0-2.0); PLATELET COUNT 183 K/uL (130-400); RBC 3.06 Mil/uL (3.80-5.20); WHITE BLOOD COUNT 16.5 K/uL (4.8-10.8)
[2017-07-20 10:49] LABS: ARTERIAL BLOOD GAS HCO3 22.7 mmol/L (21-28); ARTERIAL BLOOD GAS O2 SAT 99.6 % (95-98); ARTERIAL BLOOD GAS PCO2 33 mm/Hg (35-45); ARTERIAL BLOOD GAS PH 7.41 (7.35-7.45); ARTERIAL BLOOD GAS PO2 417 mm/Hg (80-100); ARTERIAL BLOOD GAS TCO2 21.9 mmol/L (22-28)
[2017-07-20 11:03] LABS: PROTHROMBIN TIME 10.8 SECONDS (9.7-12.2)
[2017-07-20 11:05] LABS: ALBUMIN 2.5 g/dL (3.5-5.0); ALT/SGPT 48 U/L (9-52); AST/SGOT 19 U/L (14-36); BLOOD UREA NITROGEN 14 mg/dL (7-17); CALCIUM 7.4 mg/dl (8.6-10.4); GFR AFRICAN-AMERICAN > 60; GFR NON-AFRICAN AMERICAN > 60; MAGNESIUM 1.4 mg/dL (1.6-2.3)
[2017-07-20] MEDS ORDERED: Potassium Chloride 20 mEq/15 ml LIQ UD PEG STA (11:20)
--- NOTE | 2017-07-20 11:33 | RAD ---
HISTORY: Sepsis Patient COMPARISON: 07/07/2017 FINDINGS: LUNGS: No active pulmonary disease. PLEURA: No significant pleural effusion identified, no pneumothorax apparent. CARDIOVASCULAR: Normal heart size. Nasogastric tube in atypical location. Consistent with extension into large hiatal hernia as demonstrated on CT abdomen of 01/28/2015. OSSEOUS STRUCTURES: No significant abnormalities. VISUALIZED UPPER ABDOMEN: Normal. OTHER FINDINGS: None. IMPRESSION: Nasogastric tube in the large hiatal hernia. No acute infiltrate.
[2017-07-20 11:37] LABS: ANISOCYTOSIS SLIGHT; LYMPHOCYTE 2 % (20-40); MONOCYTE 6 % (0-10); NEUTROPHIL 92 % (50-75); NUCLEATED RED BLOOD CELL 1 % (0-0); PLATELET ESTIMATE NORMAL (NORMAL); TOTAL CELLS COUNTED 100
[2017-07-20 11:38] LABS: HYPOCHROMIC SLIGHT; POLYCHROMIC SLIGHT
[2017-07-20] MEDS ORDERED: Potassium Chloride 20 mEq/15 ml LIQ UD ONE (11:43)
[2017-07-20] MEDS ORDERED: Sodium Chloride 0.9% 1,000 ML IV ONE (14:30)
[2017-07-20] MEDS ORDERED: Vancomycin 1 gm/NS 200 ml 1 GM/200 ML BAG IVPB SCH ×2 (15:00→18:00)
[2017-07-20] MEDS: Magnesium Sulfate 1 gm in D5W 1 GM/100 ML BAG IVPB SCH ×2 (15:01→16:08)
--- NOTE | 2017-07-20 15:58 | RAD ---
HISTORY: ETT. COMPARISON: Comparison chest dated 07/20/2017 at 1428 hours. Comparison also made with prior CT scan of the chest 05/02/2017 FINDINGS: In situ ETT, tip of which lies approximately 5.4 cm above giana. In situ ETT which courses other to the left side at the mid mediastinal region apparently within a large hiatal hernia. Note that this hiatal hernia was seen to much better advantage on prior CT chest dated 05/02/2017. LUNGS: Suspect mild bibasilar atelectasis. PLEURA: No significant pleural effusion identified, no pneumothorax apparent. CARDIOVASCULAR: Normal. OSSEOUS STRUCTURES: No significant abnormalities. VISUALIZED UPPER ABDOMEN: Normal. OTHER FINDINGS: None. IMPRESSION: In situ ETT in good position. In situ NGT, tip of which apparently located within a large hiatal hernia to the left of midline. . Mild bibasilar atelectasis.
--- NOTE | 2017-07-20 16:03 | RAD ---
HISTORY: Evaluate ETT Single AP supine portable view of the chest performed at 1428 hours. Correlation made with prior study 07/20/2017 at 1027 hours. . Note that this examination was read in conjunction with a subsequent chest radiograph at 1438 hours. COMPARISON: No prior. FINDINGS: Interval placement ETT, the tip of which lies above the thoracic inlet and should be advanced. . Note that the subsequent chest radiograph 10 minutes later demonstrated ETT in good position. In situ NGT, which crosses midline at the mid mediastinum terminating in the left medial yareli thorax within a large hiatal hernia LUNGS: Minor bibasilar atelectasis. Questionable small bilateral effusions. PLEURA: No significant pleural effusion identified, no pneumothorax apparent. CARDIOVASCULAR: Heart size stable. OSSEOUS STRUCTURES: No significant abnormalities. VISUALIZED UPPER ABDOMEN: Normal. OTHER FINDINGS: None. IMPRESSION: ETT tip lies above the thoracic inlet and should be advanced. Note that subsequent chest radiograph demonstrated repositioning well with tip in good position. In situ NGT within a large hiatal hernia to the left of midline. Suspect mild bibasilar atelectasis with questionable small effusions
--- NOTE | 2017-07-20 16:35 | CP.PCM.CON ---
Past Patient History - Infectious Disease Hx of Infectious Diseases: None - Past Medical History & Family History Past Medical History?: Yes - Past Social History Smoking Status: Never Smoked - CARDIAC Hx Hypercholesterolemia: Yes Hx Hypertension: Yes - PULMONARY Hx Asthma: Yes Hx Bronchitis: Yes Hx Chronic Obstructive Pulmonary Disease (COPD): Yes Hx Pneumonia: Yes - NEUROLOGICAL Hx Neurological Disorder: No - HEENT Other/Comment: WEARS GLASSES - RENAL Hx Chronic Kidney Disease: No - ENDOCRINE/METABOLIC Hx Endocrine Disorders: Yes - HEMATOLOGICAL/ONCOLOGICAL Hx Blood Disorders: Yes Hx Cancer: Yes (Esophagus) - INTEGUMENTARY Hx Dermatological Problems: No - MUSCULOSKELETAL/RHEUMATOLOGICAL Hx Arthritis: Yes (R TKR; BACK PAIN) - GASTROINTESTINAL Hx Gastrointestinal Disorders: Yes Hx Gastroesophageal Reflux: Yes Other/Comment: hx of esophageal CA - GENITOURINARY/GYNECOLOGICAL Hx Genitourinary Disorders: Yes - PSYCHIATRIC Hx Substance Use: No - SURGICAL HISTORY Hx Surgeries: Yes Hx Breast Biopsy: Yes Hx Hysterectomy: Yes Hx Orthopedic Surgery: Yes (RTKR) Other/Comment: ESOPHAGEAL SX - ANESTHESIA Hx Anesthesia: Yes Hx Anesthesia Reactions: No Hx Malignant Hyperthermia: No Meds Allergies/Adverse Reactions: Allergies Allergy/AdvReac Type Severity Reaction Status Date / Time aspirin Allergy Severe RASH Verified 07/20/17 09:44 ciprofloxacin [From Cipro] Allergy Severe RASH Verified 07/20/17 09:44 ciprofloxacin HCl Allergy Severe RASH Verified 07/20/17 09:44 [From Cipro] nitrofurantoin Allergy Severe RASH Verified 07/20/17 09:44 [From Macrobid] nitrofurantoin Allergy Severe RASH Verified 07/20/17 09:44 macrocrystalline [From Macrobid] Penicillins Allergy Severe RASH Verified 07/20/17 09:44 Sulfa (Sulfonamide Allergy Severe RASH Verified 07/20/17 09:44 Antibiotics) azithromycin Allergy ITCHING Verified 07/20/17 09:44 - Medications Medications: Current Medications Acetaminophen (Tylenol 325 Mg Supp) 975 mg [place] ONCE PRN PRN Reason: Fever >100.4 F Albuterol/Ipratropium (Duoneb 3 Mg/0.5 Mg (3 Ml) Ud) 3 ml INH RQ6 [facility] Clopidogrel Bisulfate (Plavix) 75 mg PO DAILY [facility] Last Admin: 07/20/17 15:05 Dose: 75 mg Famotidine (Pepcid) 20 mg IVP DAILY [facility] Heparin Sodium (Porcine) (Heparin) 5,000 units SC Q8 [facility] Hydrocortisone Sodium Succinate (Solu-Cortef) 100 mg IV Q8H [facility] Last Admin: 07/20/17 15:02 Dose: 100 mg Norepinephrine Bitartrate 4 mg (/ Sodium Chloride) 254 mls @ 19.05 mls/hr IV .[id number] PRN; Protocol; 5 MCG/MIN PRN Reason: TITRATE PER MD ORDER Last Admin: 07/20/17 11:25 Dose: 19.05 mls/hr Aztreonam 2 gm/ Sodium (Chloride) 100 mls @ 200 mls/hr IVPB Q8H [facility] Metronidazole (Flagyl) 500 mg in 100 mls @ 100 mls/hr IVPB Q8 [facility] Vancomycin/Sodium Chloride (Vancomycin 1 Gm/Ns 200 Ml) 1 gm in 200 mls @ 133.333 mls/hr IVPB Q24H [facility] Stop: 07/25/17 15:01 Sodium Chloride (Sodium Chloride 0.9%) 1,000 mls @ 250 mls/hr IV .Q4H ONE Stop: 07/20/17 18:29 Last Admin: 07/20/17 15:02 Dose: 250 mls/hr Insulin Aspart (Novolog) 0 unit SC Q6H [facility] PRN Reason: Protocol Montelukast Sodium (Singulair) 10 mg PO HS [facility] Rosuvastatin Calcium (Crestor) 2.5 mg PO HS [facility] Results - Vital Signs Recent Vital Signs: Last Vital Signs Temp 97.0 F L 07/20/17 12:20 Pulse 134 H 07/20/17 12:20 Resp 12 07/20/17 12:20 BP 45/25 L 07/20/17 12:14 Pulse Ox 100 07/20/17 12:20 - Labs Result Diagrams: 07/20/17 10:42 07/20/17 10:42 Labs: Laboratory Results - last 24 hr 07/20/17 07/20/17 07/20/17 10:18 10:35 10:37 WBC RBC Hgb Hct MCV MCH MCHC RDW Plt Count MPV Neut % (Auto) Lymph % (Auto) [place] % (Auto) Eos % (Auto) Baso % (Auto) Neut # (Auto) Lymph # (Auto) [place] # (Auto) Eos # (Auto) Baso # (Auto) Neutrophils % (Manual) Lymphocytes % (Manual) Monocytes % (Manual) Nucleated RBC % Platelet Estimate Polychromasia Hypochromasia (manual) Anisocytosis (manual) PT INR APTT Puncture Site Lb pCO2 33 L pO2 417 H HCO3 22.7 ABG pH 7.41 ABG Total CO2 21.9 L ABG O2 Saturation 99.6 H ABG Base Excess -2.9 L Issa Test Na ABG Potassium 2.2 L* A-a O2 Difference 255.0 Respiratory Index 0.6 Sodium 132.0 Chloride 103.0 Glucose 131 H Lactate 0.8 Mechanical Rate 12 FiO2 100.0 Tidal Volume 450 PEEP 5 Crit Value Called To Dr morin Crit Value Called By Alexandr may shape hand Crit Value Read Back Y Blood Gas Notified Time 1050 Potassium Carbon Dioxide Anion Gap BUN Creatinine Est GFR ( Amer) Est GFR (Non-Af Amer) Random Glucose Calcium Phosphorus Magnesium Total Bilirubin AST ALT Alkaline Phosphatase Troponin I Total Protein Albumin Globulin Albumin/Globulin Ratio Arterial Blood Potassium 2.2 L* Urine Color Yellow Urine Clarity Hazy Urine pH 5.0 Ur Specific [place] 1.015 Urine Protein 2+ H Urine Glucose (UA) Normal Urine Ketones Negative Urine Blood Negative Urine Nitrate Negative Urine Bilirubin Negative Urine Urobilinogen Normal Ur Leukocyte Esterase 3+ H Urine WBC (Auto) 299 H Ur Squamous Epith Cells 1 Urine Yeast (Budding) Many H Random Vancomycin Influenza Typ A,B (EIA) Negative for flu a/b 07/20/17 07/20/17 07/20/17 10:42 10:42 10:42 WBC 16.5 H RBC 3.06 L Hgb 9.8 L Hct 29.3 L MCV 95.8 MCH 32.1 H MCHC 33.5 RDW 19.0 H Plt Count 183 MPV 7.6 Neut % (Auto) 88.0 H Lymph % (Auto) 6.2 L [place] % (Auto) 5.4 Eos % (Auto) 0.2 Baso % (Auto) 0.2 Neut # (Auto) 14.5 H Lymph # (Auto) 1.0 [place] # (Auto) 0.9 H Eos # (Auto) 0.0 Baso # (Auto) 0.0 Neutrophils % (Manual) 92 H Lymphocytes % (Manual) 2 L Monocytes % (Manual) 6 Nucleated RBC % 1 H Platelet Estimate Normal Polychromasia Slight Hypochromasia (manual) Slight Anisocytosis (manual) Slight PT 10.8 INR 1.0 APTT 25 Puncture Site pCO2 pO2 HCO3 ABG pH ABG Total CO2 ABG O2 Saturation ABG Base Excess Issa Test ABG Potassium A-a O2 Difference Respiratory Index Sodium 131 L Chloride 97 L Glucose Lactate Mechanical Rate FiO2 Tidal Volume PEEP Crit Value Called To Crit Value Called By Crit Value Read Back Blood Gas Notified Time Potassium 2.6 L Carbon Dioxide 24 Anion Gap 12 BUN 14 Creatinine 0.5 L Est GFR ( Amer) > 60 Est GFR (Non-Af Amer) > 60 Random Glucose 125 H Calcium 7.4 L Phosphorus 2.5 Magnesium 1.4 L Total Bilirubin 0.2 AST 19 ALT 48 Alkaline Phosphatase 64 Troponin I 0.2240 H* Total Protein 5.0 L Albumin 2.5 L Globulin 2.5 Albumin/Globulin Ratio 1.0 Arterial Blood Potassium Urine Color Urine Clarity Urine pH Ur Specific [place] Urine Protein Urine Glucose (UA) Urine Ketones Urine Blood Urine Nitrate Urine Bilirubin Urine Urobilinogen Ur Leukocyte Esterase Urine WBC (Auto) Ur Squamous Epith Cells Urine Yeast (Budding) Random Vancomycin Influenza Typ A,B (EIA) 07/20/17 10:42 WBC RBC Hgb Hct MCV MCH MCHC RDW Plt Count MPV Neut % (Auto) Lymph % (Auto) [place] % (Auto) Eos % (Auto) Baso % (Auto) Neut # (Auto) Lymph # (Auto) [place] # (Auto) Eos # (Auto) Baso # (Auto) Neutrophils % (Manual) Lymphocytes % (Manual) Monocytes % (Manual) Nucleated RBC % Platelet Estimate Polychromasia Hypochromasia (manual) Anisocytosis (manual) PT INR APTT Puncture Site pCO2 pO2 HCO3 ABG pH ABG Total CO2 ABG O2 Saturation ABG Base Excess Issa Test ABG Potassium A-a O2 Difference Respiratory Index Sodium Chloride Glucose Lactate Mechanical Rate FiO2 Tidal Volume PEEP Crit Value Called To Crit Value Called By Crit Value Read Back Blood Gas Notified Time Potassium Carbon Dioxide Anion Gap BUN Creatinine Est GFR ( Amer) Est GFR (Non-Af Amer) Random Glucose Calcium Phosphorus Magnesium Total Bilirubin AST ALT Alkaline Phosphatase Troponin I Total Protein Albumin Globulin Albumin/Globulin Ratio Arterial Blood Potassium Urine Color Urine Clarity Urine pH Ur Specific [place] Urine Protein Urine Glucose (UA) Urine Ketones Urine Blood Urine Nitrate Urine Bilirubin Urine Urobilinogen Ur Leukocyte Esterase Urine WBC (Auto) Ur Squamous Epith Cells Urine Yeast (Budding) Random Vancomycin 23.41 Influenza Typ A,B (EIA)
--- NOTE | 2017-07-20 16:59 | CP.PCM.CON ---
History of Present Illness - History of Present Illness History of Present Illness: 81 y/o female well known to ICU team presents to [facility] intubated by EMS. As per patient's son, patient was c/o back pain yesterday and was given a medications. Today morning patient was found unresponsive and was intubated. Patient is non-verbal. No other information could be obtained. hypotensive on pressors. Review of Systems - Review of Systems Review of Systems: limited ROS 2nd patient sedated and intubated Past Patient History - Infectious Disease Hx of Infectious Diseases: None - Past Medical History & Family History Past Medical History?: Yes - Past Social History Smoking Status: Never Smoked - CARDIAC Hx Hypercholesterolemia: Yes Hx Hypertension: Yes - PULMONARY Hx Asthma: Yes Hx Bronchitis: Yes Hx Chronic Obstructive Pulmonary Disease (COPD): Yes Hx Pneumonia: Yes - NEUROLOGICAL Hx Neurological Disorder: No - HEENT Other/Comment: WEARS GLASSES - RENAL Hx Chronic Kidney Disease: No - ENDOCRINE/METABOLIC Hx Endocrine Disorders: Yes - HEMATOLOGICAL/ONCOLOGICAL Hx Blood Disorders: Yes Hx Cancer: Yes (Esophagus) - INTEGUMENTARY Hx Dermatological Problems: No - MUSCULOSKELETAL/RHEUMATOLOGICAL Hx Arthritis: Yes (R TKR; BACK PAIN) - GASTROINTESTINAL Hx Gastrointestinal Disorders: Yes Hx Gastroesophageal Reflux: Yes Other/Comment: hx of esophageal CA - GENITOURINARY/GYNECOLOGICAL Hx Genitourinary Disorders: Yes - PSYCHIATRIC Hx Substance Use: No - SURGICAL HISTORY Hx Surgeries: Yes Hx Breast Biopsy: Yes Hx Hysterectomy: Yes Hx Orthopedic Surgery: Yes (RTKR) Other/Comment: ESOPHAGEAL SX - ANESTHESIA Hx Anesthesia: Yes Hx Anesthesia Reactions: No Hx Malignant Hyperthermia: No Meds Allergies/Adverse Reactions: Allergies Allergy/AdvReac Type Severity Reaction Status Date / Time aspirin Allergy Severe RASH Verified 07/20/17 09:44 ciprofloxacin [From Cipro] Allergy Severe RASH Verified 07/20/17 09:44 ciprofloxacin HCl Allergy Severe RASH Verified 07/20/17 09:44 [From Cipro] nitrofurantoin Allergy Severe RASH Verified 07/20/17 09:44 [From Macrobid] nitrofurantoin Allergy Severe RASH Verified 07/20/17 09:44 macrocrystalline [From Macrobid] Penicillins Allergy Severe RASH Verified 07/20/17 09:44 Sulfa (Sulfonamide Allergy Severe RASH Verified 07/20/17 09:44 Antibiotics) azithromycin Allergy ITCHING Verified 07/20/17 09:44 - Medications Medications: Current Medications Acetaminophen (Tylenol 325 Mg Supp) 975 mg CO ONCE PRN PRN Reason: Fever >100.4 F Albuterol/Ipratropium (Duoneb 3 Mg/0.5 Mg (3 Ml) Ud) 3 ml INH RQ6 [facility] Clopidogrel Bisulfate (Plavix) 75 mg PO DAILY [facility] Last Admin: 07/20/17 15:05 Dose: 75 mg Famotidine (Pepcid) 20 mg IVP DAILY [facility] Heparin Sodium (Porcine) (Heparin) 5,000 units SC Q8 [facility] Hydrocortisone Sodium Succinate (Solu-Cortef) 100 mg IV Q8H [facility] Last Admin: 07/20/17 15:02 Dose: 100 mg Norepinephrine Bitartrate 4 mg (/ Sodium Chloride) 254 mls @ 19.05 mls/hr IV .[id number] PRN; Protocol; 5 MCG/MIN PRN Reason: TITRATE PER MD ORDER Last Admin: 07/20/17 11:25 Dose: 19.05 mls/hr Aztreonam 2 gm/ Sodium (Chloride) 100 mls @ 200 mls/hr IVPB Q8H [facility] Metronidazole (Flagyl) 500 mg in 100 mls @ 100 mls/hr IVPB Q8 [facility] Vancomycin/Sodium Chloride (Vancomycin 1 Gm/Ns 200 Ml) 1 gm in 200 mls @ 133.333 mls/hr IVPB Q24H [facility] Stop: 07/25/17 15:01 Sodium Chloride (Sodium Chloride 0.9%) 1,000 mls @ 250 mls/hr IV .Q4H ONE Stop: 07/20/17 18:29 Last Admin: 07/20/17 15:02 Dose: 250 mls/hr Insulin Aspart (Novolog) 0 unit SC Q6H [facility] PRN Reason: Protocol Montelukast Sodium (Singulair) 10 mg PO HS [facility] Rosuvastatin Calcium (Crestor) 2.5 mg PO HS [facility] Physical Exam - Head Exam Head Exam: ATRAUMATIC, NORMAL INSPECTION - Eye Exam Eye Exam: Normal appearance - ENT Exam ENT Exam: Mucous Membranes Moist - Respiratory Exam Respiratory Exam: Rhonchi, NORMAL BREATHING PATTERN - Cardiovascular Exam Cardiovascular Exam: Tachycardia, REGULAR RHYTHM, +S1, +S2 - GI/Abdominal Exam GI & Abdominal Exam: Normal Bowel Sounds, Soft - Extremities Exam Extremities exam: Positive for: pedal edema Results - Vital Signs Recent Vital Signs: Last Vital Signs Temp 97.0 F L 07/20/17 12:20 Pulse 134 H 07/20/17 12:20 Resp 12 07/20/17 12:20 BP 45/25 L 07/20/17 12:14 Pulse Ox 100 07/20/17 12:20 - Labs Result Diagrams: 07/20/17 10:42 07/20/17 10:42 Labs: Laboratory Results - last 24 hr 07/20/17 07/20/17 07/20/17 10:18 10:35 10:37 WBC RBC Hgb Hct MCV MCH MCHC RDW Plt Count MPV Neut % (Auto) Lymph % (Auto) [place] % (Auto) Eos % (Auto) Baso % (Auto) Neut # (Auto) Lymph # (Auto) [place] # (Auto) Eos # (Auto) Baso # (Auto) Neutrophils % (Manual) Lymphocytes % (Manual) Monocytes % (Manual) Nucleated RBC % Platelet Estimate Polychromasia Hypochromasia (manual) Anisocytosis (manual) PT INR APTT Puncture Site Lb pCO2 33 L pO2 417 H HCO3 22.7 ABG pH 7.41 ABG Total CO2 21.9 L ABG O2 Saturation 99.6 H ABG Base Excess -2.9 L Issa Test Na ABG Potassium 2.2 L* A-a O2 Difference 255.0 Respiratory Index 0.6 Sodium 132.0 Chloride 103.0 Glucose 131 H Lactate 0.8 Mechanical Rate 12 FiO2 100.0 Tidal Volume 450 PEEP 5 Crit Value Called To Dr morin Crit Value Called By Alexandr may cable worker helper Crit Value Read Back Y Blood Gas Notified Time 1050 Potassium Carbon Dioxide Anion Gap BUN Creatinine Est GFR ( Amer) Est GFR (Non-Af Amer) Random Glucose Calcium Phosphorus Magnesium Total Bilirubin AST ALT Alkaline Phosphatase Troponin I Total Protein Albumin Globulin Albumin/Globulin Ratio Arterial Blood Potassium 2.2 L* Urine Color Yellow Urine Clarity Hazy Urine pH 5.0 Ur Specific [place] 1.015 Urine Protein 2+ H Urine Glucose (UA) Normal Urine Ketones Negative Urine Blood Negative Urine Nitrate Negative Urine Bilirubin Negative Urine Urobilinogen Normal Ur Leukocyte Esterase 3+ H Urine WBC (Auto) 299 H Ur Squamous Epith Cells 1 Urine Yeast (Budding) Many H Random Vancomycin Influenza Typ A,B (EIA) Negative for flu a/b 07/20/17 07/20/17 07/20/17 10:42 10:42 10:42 WBC 16.5 H RBC 3.06 L Hgb 9.8 L Hct 29.3 L MCV 95.8 MCH 32.1 H MCHC 33.5 RDW 19.0 H Plt Count 183 MPV 7.6 Neut % (Auto) 88.0 H Lymph % (Auto) 6.2 L [place] % (Auto) 5.4 Eos % (Auto) 0.2 Baso % (Auto) 0.2 Neut # (Auto) 14.5 H Lymph # (Auto) 1.0 [place] # (Auto) 0.9 H Eos # (Auto) 0.0 Baso # (Auto) 0.0 Neutrophils % (Manual) 92 H Lymphocytes % (Manual) 2 L Monocytes % (Manual) 6 Nucleated RBC % 1 H Platelet Estimate Normal Polychromasia Slight Hypochromasia (manual) Slight Anisocytosis (manual) Slight PT 10.8 INR 1.0 APTT 25 Puncture Site pCO2 pO2 HCO3 ABG pH ABG Total CO2 ABG O2 Saturation ABG Base Excess Issa Test ABG Potassium A-a O2 Difference Respiratory Index Sodium 131 L Chloride 97 L Glucose Lactate Mechanical Rate FiO2 Tidal Volume PEEP Crit Value Called To Crit Value Called By Crit Value Read Back Blood Gas Notified Time Potassium 2.6 L Carbon Dioxide 24 Anion Gap 12 BUN 14 Creatinine 0.5 L Est GFR ( Amer) > 60 Est GFR (Non-Af Amer) > 60 Random Glucose 125 H Calcium 7.4 L Phosphorus 2.5 Magnesium 1.4 L Total Bilirubin 0.2 AST 19 ALT 48 Alkaline Phosphatase 64 Troponin I 0.2240 H* Total Protein 5.0 L Albumin 2.5 L Globulin 2.5 Albumin/Globulin Ratio 1.0 Arterial Blood Potassium Urine Color Urine Clarity Urine pH Ur Specific [place] Urine Protein Urine Glucose (UA) Urine Ketones Urine Blood Urine Nitrate Urine Bilirubin Urine Urobilinogen Ur Leukocyte Esterase Urine WBC (Auto) Ur Squamous Epith Cells Urine Yeast (Budding) Random Vancomycin Influenza Typ A,B (EIA) 07/20/17 10:42 WBC RBC Hgb Hct MCV MCH MCHC RDW Plt Count MPV Neut % (Auto) Lymph % (Auto) [place] % (Auto) Eos % (Auto) Baso % (Auto) Neut # (Auto) Lymph # (Auto) [place] # (Auto) Eos # (Auto) Baso # (Auto) Neutrophils % (Manual) Lymphocytes % (Manual) Monocytes % (Manual) Nucleated RBC % Platelet Estimate Polychromasia Hypochromasia (manual) Anisocytosis (manual) PT INR APTT Puncture Site pCO2 pO2 HCO3 ABG pH ABG Total CO2 ABG O2 Saturation ABG Base Excess Issa Test ABG Potassium A-a O2 Difference Respiratory Index Sodium Chloride Glucose Lactate Mechanical Rate FiO2 Tidal Volume PEEP Crit Value Called To Crit Value Called By Crit Value Read Back Blood Gas Notified Time Potassium Carbon Dioxide Anion Gap BUN Creatinine Est GFR ( Amer) Est GFR (Non-Af Amer) Random Glucose Calcium Phosphorus Magnesium Total Bilirubin AST ALT Alkaline Phosphatase Troponin I Total Protein Albumin Globulin Albumin/Globulin Ratio Arterial Blood Potassium Urine Color Urine Clarity Urine pH Ur Specific [place] Urine Protein Urine Glucose (UA) Urine Ketones Urine Blood Urine Nitrate Urine Bilirubin Urine Urobilinogen Ur Leukocyte Esterase Urine WBC (Auto) Ur Squamous Epith Cells Urine Yeast (Budding) Random Vancomycin 23.41 Influenza Typ A,B (EIA) Assessment & Plan - Assessment and Plan (Free Text) Assessment: Septic shock: exact etiology unknown: leukocytosis, start emprical abx vanco/ aztreonam/flagyl, serial lactic -Shock: place TLC and infuse norepi to keep MAP >65 -h/o asthma:continue solumedrol and duonebs Duoneb 3ml IH Q6H [facility] home Montelukast 10mg PO QD -at risk of CAD: continue asa, statin, av antonino sena contraindicated 2nd hypotension -ng tube feeds -AMS: obtain CT head -DM continue, Accuchecks q6H, ISS medium dose -dvt ppx heparin sq -pud ppx pepcid Goals of care: sons reqeusted DNR. -PRognosis guarded as multiple diagnostic tests pending. cc time 35 minutes - Date & Time Date: 07/20/17 Time: 16:59
--- NOTE | 2017-07-20 17:10 | CP.PCM.CON ---
History of Present Illness - History of Present Illness History of Present Illness: 81 year old female Recently treated here for UTI/ Pneumonia and exac COPD Treated for 10 + days with IV antibiotics before transfer to [place] where she was reportedly continued on IV antibiotic rx As per patient's son, patient was c/o back pain yesterday and was given a medications. Today morning patient was found unresponsive and was intubated. Patient is non-verbal. No other information could be obtained. hypotensive on pressors. She has had multiple admissions for this over the past 2 years. Patient has been treated with broad coverage antibiotics, steroid therapy and intermittent use of BIPAP. PMHx: significant for esophageal cancer s/p esophagectomy (prior to 2013 per imaging review), COPD, HTN, hyperlipidemia, GERD, COPD PSHx: Esophagectomy, hysterectomy FHx: Father from metastatic Prostate Cancer, mother from Tuberculosis Social: Denies tobacco, EtOH or illicit drug use Endo: None on record but admits to EGD previously Review of Systems - Review of Systems Systems not reviewed;Unavailable: Altered Mental Status, Intubated All systems: reviewed and no additional remarkable complaints except - Constitutional Constitutional: As Per HPI - EENT Eyes: absent: As Per HPI, Blind Spots, Blurred Vision, Change in Vision, Decreased Night Vision, Diplopia, Discharge, Dry Eye, Exophthalmos, Floaters, Irritation, Itchy Eyes, Loss of Peripheral Vision, Pain, Photophobia, Requires Corrective Lenses, Sees Flashes, Spots in Vision, Tunnel Vision, Other Visual Disturbances, Loss of Vision, Other Ears: absent: As Per HPI, Decreased Hearing, Ear Discharge, Ear Pain, Tinnitus, Abnormal Hearing, Disequilibrium, Dizziness, Other Nose/Mouth/Throat: absent: As Per HPI, Epistaxis, Nasal Congestion, Nasal Discharge, Nasal Obstruction, Nasal Trauma, Nose Pain, Post Nasal Drip, Sinus Pain, Sinus Pressure, Bleeding Gums, Change in Voice, Dental Pain, Dry Mouth, Dysphagia, Halitosis, Hoarsness, Lip Swelling, Mouth Lesions, Mouth Pain, Odynophagia, Sore Throat, Throat Swelling, Tongue Swelling, Facial Pain, Neck Pain, Neck Mass, Other - Breasts Breasts: absent: As Per HPI, Change in Shape, Mass, Pain, Nipple Discharge, Nipple Inversion, Skin Changes, Swelling, Other - Cardiovascular Cardiovascular: As Per HPI - Respiratory Respiratory: As Per HPI - Gastrointestinal Gastrointestinal: absent: As Per HPI, Abdominal Pain, Belching, Bloating, Change in Bowel Habits, Change in Stool Character, Coffee Ground Emesis, Constipation, Cramping, Diarrhea, Dyspepsia, Dysphagia, Early Satiety, Excessive Flatus, Fecal Incontinence, Heartburn, Hematemesis, Hematochezia, Loose Stools, Melena, Nausea, Odynophagia, Temesmus, Vomiting, Other - Genitourinary Genitourinary: absent: As Per HPI, Change in Urinary Stream, Difficulty Urinating, Dysuria, Flank Pain, Hematuria, Pyuria, Nocturia, Urinary Incontinence, Urinary Frequency, Urinary Hesitance, Urinary Urgency, Voiding Freq/Small Amts, Freq UTI, Hx Renal/Bladder Calculi, Hx /Renal Surgery, Bladder Distension, Other - Reproductive: Female Reproductive:Female: absent: As Per HPI, Amenorrhea, Amenorrhea/ Control, Currently Menstual, Cycle <21 Days, Cycle >35 Days, Cycle Variable, Menses 1-7 Days, Menses >/= 8 Days, Menses Variable, Cycle > 4 Weeks Between, No Menses for 6 Months, Heavy Menses, Light Menses, Normal Menses, Spotting Between Cycles , S/P Hysterectomy, Menopausal, Post Menopausal, Premenarche, Abnormal Vaginal Bleeding, Dysmenorrhea, Dyspareunia, Genital Lesions, Genital Pruritis, Pelvic Pain, Prolapse Symptoms, Sexual Dysfunction, Vaginal Discharge, Vaginal Dryness , Vaginal Odor, Vaginal Pruritis, Other - Menstruation Menstruation: absent: As Per HPI, Amenorrhea, Amenorrhea/ Control, Currently Menstual, Cycle <21 Days, Cycle >35 Days, Cycle Variable, Menses 1-7 Days, Menses >/= 8 Days, Menses Variable, Cycle > 4 Weeks Between, No Menses for 6 Months, Heavy Menses, Light Menses, Normal Menses, Spotting Between Cycles , S/P Hysterectomy, Menopausal, Post Menopausal, Premenarche, Abnormal Vaginal Bleeding, Dysmenorrhea, Other - Musculoskeletal Musculoskeletal: absent: As Per HPI, Abnormal Gait, Arthralgias, Atrophy, Back Pain, Deformity, Joint Swelling, Limited Range of Motion, Loss of Height, Muscle Cramps, Muscle Weakness, Myalgias, Neck Pain, Numbness, Radiating Pain into Limb, Stiffness, Tingling, Other - Integumentary Integumentary: absent: As Per HPI, Acne, Alopecia, Bleeding Lesions, Change in Hair, Change in Nails, Change in Pigmentation, Changing Lesions, Dry Skin, Erythema, Furuncle, Hirsutism, Lesions, New Lesions, Non-Healing Lesions, Photosensitivity, Pruritus, Rash, Skin Pain, Skin Ulcer, Sores, Striae, Swelling , Unusual Bruising, Wounds, Jaundice, Other - Neurological Neurological: As Per HPI - Psychiatric Psychiatric: absent: As Per HPI, Abnormal Sleep Pattern, Anhedonia, Anxiety, Auditory Hallucinations, Behavioral Changes, Change in Appetite, Change in Libido, Confusion, Depression, Difficulty Concentrating, Hallucinations, Homicidal Ideation, Hopelessness, Irritability, Memory Loss, Mood Swings, Panic Attacks, Paranoia, Suicidal Ideation, Visual Hallucinations, Tactile Hallucinations, Other - Endocrine Endocrine: absent: As Per HPI, Change in Body Appearance, Change in Libido, Cold Intolorance, Deepening of Voice, Excessive Sweating, Fatigue, Flushing, Heat Intolorance, Increase in Ring/Shoe/Hat Size, Palpitations, Polydipsia, Polyphagia, Polyuria, Other - Hematologic/Lymphatic Hematologic: absent: As Per HPI, Easy Bleeding, Easy Bruising, Lymphadenopathy, Other Past Patient History - Infectious Disease Hx of Infectious Diseases: None - Past Medical History & Family History Past Medical History?: Yes - Past Social History Smoking Status: Never Smoked - CARDIAC Hx Hypercholesterolemia: Yes Hx Hypertension: Yes - PULMONARY Hx Asthma: Yes Hx Bronchitis: Yes Hx Chronic Obstructive Pulmonary Disease (COPD): Yes Hx Pneumonia: Yes - NEUROLOGICAL Hx Neurological Disorder: No - HEENT Other/Comment: WEARS GLASSES - RENAL Hx Chronic Kidney Disease: No - ENDOCRINE/METABOLIC Hx Endocrine Disorders: Yes - HEMATOLOGICAL/ONCOLOGICAL Hx Blood Disorders: Yes Hx Cancer: Yes (Esophagus) - INTEGUMENTARY Hx Dermatological Problems: No - MUSCULOSKELETAL/RHEUMATOLOGICAL Hx Arthritis: Yes (R TKR; BACK PAIN) - GASTROINTESTINAL Hx Gastrointestinal Disorders: Yes Hx Gastroesophageal Reflux: Yes Other/Comment: hx of esophageal CA - GENITOURINARY/GYNECOLOGICAL Hx Genitourinary Disorders: Yes - PSYCHIATRIC Hx Substance Use: No - SURGICAL HISTORY Hx Surgeries: Yes Hx Breast Biopsy: Yes Hx Hysterectomy: Yes Hx Orthopedic Surgery: Yes (RTKR) Other/Comment: ESOPHAGEAL SX - ANESTHESIA Hx Anesthesia: Yes Hx Anesthesia Reactions: No Hx Malignant Hyperthermia: No Meds Allergies/Adverse Reactions: Allergies Allergy/AdvReac Type Severity Reaction Status Date / Time aspirin Allergy Severe RASH Verified 07/20/17 09:44 ciprofloxacin [From Cipro] Allergy Severe RASH Verified 07/20/17 09:44 ciprofloxacin HCl Allergy Severe RASH Verified 07/20/17 09:44 [From Cipro] nitrofurantoin Allergy Severe RASH Verified 07/20/17 09:44 [From Macrobid] nitrofurantoin Allergy Severe RASH Verified 07/20/17 09:44 macrocrystalline [From Macrobid] Penicillins Allergy Severe RASH Verified 07/20/17 09:44 Sulfa (Sulfonamide Allergy Severe RASH Verified 07/20/17 09:44 Antibiotics) azithromycin Allergy ITCHING Verified 07/20/17 09:44 - Medications Medications: Current Medications Acetaminophen (Tylenol 325 Mg Supp) 975 mg ND ONCE PRN PRN Reason: Fever >100.4 F Albuterol/Ipratropium (Duoneb 3 Mg/0.5 Mg (3 Ml) Ud) 3 ml INH RQ6 [facility] Clopidogrel Bisulfate (Plavix) 75 mg PO DAILY [facility] Last Admin: 07/20/17 15:05 Dose: 75 mg Famotidine (Pepcid) 20 mg IVP DAILY [facility] Heparin Sodium (Porcine) (Heparin) 5,000 units SC Q8 [facility] Hydrocortisone Sodium Succinate (Solu-Cortef) 100 mg IV Q8H [facility] Last Admin: 07/20/17 15:02 Dose: 100 mg Norepinephrine Bitartrate 4 mg (/ Sodium Chloride) 254 mls @ 19.05 mls/hr IV .[id number] PRN; Protocol; 5 MCG/MIN PRN Reason: TITRATE PER MD ORDER Last Admin: 07/20/17 11:25 Dose: 19.05 mls/hr Aztreonam 2 gm/ Sodium (Chloride) 100 mls @ 200 mls/hr IVPB Q8H [facility] Metronidazole (Flagyl) 500 mg in 100 mls @ 100 mls/hr IVPB Q8 [facility] Vancomycin/Sodium Chloride (Vancomycin 1 Gm/Ns 200 Ml) 1 gm in 200 mls @ 133.333 mls/hr IVPB Q24H [facility] Stop: 07/25/17 15:01 Sodium Chloride (Sodium Chloride 0.9%) 1,000 mls @ 250 mls/hr IV .Q4H [facility] Stop: 07/20/17 18:29 Last Admin: 07/20/17 15:02 Dose: 250 mls/hr Insulin Aspart (Novolog) 0 unit SC Q6H [facility] PRN Reason: Protocol Montelukast Sodium (Singulair) 10 mg PO HS [facility] Rosuvastatin Calcium (Crestor) 2.5 mg PO HS [facility] Physical Exam - Constitutional Appears: Chronically Ill Additional comments: unresponsive on vent - Head Exam Head Exam: ATRAUMATIC, NORMOCEPHALIC - Eye Exam Eye Exam: absent: Scleral icterus - ENT Exam ENT Exam: Mucous Membranes Dry - Neck Exam Neck exam: Negative for: Lymphadenopathy - Respiratory Exam Respiratory Exam: Decreased Breath Sounds, Rales, Rhonchi - Cardiovascular Exam Cardiovascular Exam: REGULAR RHYTHM, +S1, +S2 - GI/Abdominal Exam GI & Abdominal Exam: Diminished Bowel Sounds, Distended, Soft. absent: Guarding , Rebound, Rigid, Tenderness - Rectal Exam Rectal Exam: Deferred - Exam Exam: NORMAL INSPECTION - Extremities Exam Extremities exam: Positive for: pedal edema, pedal pulses present. Negative for : calf tenderness, tenderness - Back Exam Back exam: absent: CVA tenderness (L), CVA tenderness (R) - Neurological Exam Neurological exam: Altered - Psychiatric Exam Psychiatric exam: Depressed - Skin Skin Exam: Dry Results - Vital Signs Recent Vital Signs: Last Vital Signs Temp 97.0 F L 07/20/17 12:20 Pulse 134 H 07/20/17 12:20 Resp 12 07/20/17 12:20 BP 45/25 L 07/20/17 12:14 Pulse Ox 100 07/20/17 12:20 - Labs Result Diagrams: 07/20/17 10:42 07/20/17 10:42 Labs: Laboratory Results - last 24 hr 07/20/17 07/20/17 07/20/17 10:18 10:35 10:37 WBC RBC Hgb Hct MCV MCH MCHC RDW Plt Count MPV Neut % (Auto) Lymph % (Auto) Callahan % (Auto) Eos % (Auto) Baso % (Auto) Neut # (Auto) Lymph # (Auto) Callahan # (Auto) Eos # (Auto) Baso # (Auto) Neutrophils % (Manual) Lymphocytes % (Manual) Monocytes % (Manual) Nucleated RBC % Platelet Estimate Polychromasia Hypochromasia (manual) Anisocytosis (manual) PT INR APTT Puncture Site Lb pCO2 33 L pO2 417 H HCO3 22.7 ABG pH 7.41 ABG Total CO2 21.9 L ABG O2 Saturation 99.6 H ABG Base Excess -2.9 L Issa Test Na ABG Potassium 2.2 L* A-a O2 Difference 255.0 Respiratory Index 0.6 Sodium 132.0 Chloride 103.0 Glucose 131 H Lactate 0.8 Mechanical Rate 12 FiO2 100.0 Tidal Volume 450 PEEP 5 Crit Value Called To Dr morin Crit Value Called By Alexandr may [employer] worker Crit Value Read Back Y Blood Gas Notified Time 1050 Potassium Carbon Dioxide Anion Gap BUN Creatinine Est GFR ( Amer) Est GFR (Non-Af Amer) Random Glucose Calcium Phosphorus Magnesium Total Bilirubin AST ALT Alkaline Phosphatase Troponin I Total Protein Albumin Globulin Albumin/Globulin Ratio Arterial Blood Potassium 2.2 L* Urine Color Yellow Urine Clarity Hazy Urine pH 5.0 Ur Specific Phenix 1.015 Urine Protein 2+ H Urine Glucose (UA) Normal Urine Ketones Negative Urine Blood Negative Urine Nitrate Negative Urine Bilirubin Negative Urine Urobilinogen Normal Ur Leukocyte Esterase 3+ H Urine WBC (Auto) 299 H Ur Squamous Epith Cells 1 Urine Yeast (Budding) Many H Random Vancomycin Influenza Typ A,B (EIA) Negative for flu a/b 07/20/17 07/20/17 07/20/17 10:42 10:42 10:42 WBC 16.5 H RBC 3.06 L Hgb 9.8 L Hct 29.3 L MCV 95.8 MCH 32.1 H MCHC 33.5 RDW 19.0 H Plt Count 183 MPV 7.6 Neut % (Auto) 88.0 H Lymph % (Auto) 6.2 L Callahan % (Auto) 5.4 Eos % (Auto) 0.2 Baso % (Auto) 0.2 Neut # (Auto) 14.5 H Lymph # (Auto) 1.0 Callahan # (Auto) 0.9 H Eos # (Auto) 0.0 Baso # (Auto) 0.0 Neutrophils % (Manual) 92 H Lymphocytes % (Manual) 2 L Monocytes % (Manual) 6 Nucleated RBC % 1 H Platelet Estimate Normal Polychromasia Slight Hypochromasia (manual) Slight Anisocytosis (manual) Slight PT 10.8 INR 1.0 APTT 25 Puncture Site pCO2 pO2 HCO3 ABG pH ABG Total CO2 ABG O2 Saturation ABG Base Excess Issa Test ABG Potassium A-a O2 Difference Respiratory Index Sodium 131 L Chloride 97 L Glucose Lactate Mechanical Rate FiO2 Tidal Volume PEEP Crit Value Called To Crit Value Called By Crit Value Read Back Blood Gas Notified Time Potassium 2.6 L Carbon Dioxide 24 Anion Gap 12 BUN 14 Creatinine 0.5 L Est GFR ( Amer) > 60 Est GFR (Non-Af Amer) > 60 Random Glucose 125 H Calcium 7.4 L Phosphorus 2.5 Magnesium 1.4 L Total Bilirubin 0.2 AST 19 ALT 48 Alkaline Phosphatase 64 Troponin I 0.2240 H* Total Protein 5.0 L Albumin 2.5 L Globulin 2.5 Albumin/Globulin Ratio 1.0 Arterial Blood Potassium Urine Color Urine Clarity Urine pH Ur Specific Phenix Urine Protein Urine Glucose (UA) Urine Ketones Urine Blood Urine Nitrate Urine Bilirubin Urine Urobilinogen Ur Leukocyte Esterase Urine WBC (Auto) Ur Squamous Epith Cells Urine Yeast (Budding) Random Vancomycin Influenza Typ A,B (EIA) 07/20/17 10:42 WBC RBC Hgb Hct MCV MCH MCHC RDW Plt Count MPV Neut % (Auto) Lymph % (Auto) Callahan % (Auto) Eos % (Auto) Baso % (Auto) Neut # (Auto) Lymph # (Auto) Callahan # (Auto) Eos # (Auto) Baso # (Auto) Neutrophils % (Manual) Lymphocytes % (Manual) Monocytes % (Manual) Nucleated RBC % Platelet Estimate Polychromasia Hypochromasia (manual) Anisocytosis (manual) PT INR APTT Puncture Site pCO2 pO2 HCO3 ABG pH ABG Total CO2 ABG O2 Saturation ABG Base Excess Issa Test ABG Potassium A-a O2 Difference Respiratory Index Sodium Chloride Glucose Lactate Mechanical Rate FiO2 Tidal Volume PEEP Crit Value Called To Crit Value Called By Crit Value Read Back Blood Gas Notified Time Potassium Carbon Dioxide Anion Gap BUN Creatinine Est GFR ( Amer) Est GFR (Non-Af Amer) Random Glucose Calcium Phosphorus Magnesium Total Bilirubin AST ALT Alkaline Phosphatase Troponin I Total Protein Albumin Globulin Albumin/Globulin Ratio Arterial Blood Potassium Urine Color Urine Clarity Urine pH Ur Specific Phenix Urine Protein Urine Glucose (UA) Urine Ketones Urine Blood Urine Nitrate Urine Bilirubin Urine Urobilinogen Ur Leukocyte Esterase Urine WBC (Auto) Ur Squamous Epith Cells Urine Yeast (Budding) Random Vancomycin 23.41 Influenza Typ A,B (EIA) Assessment & Plan (1) Hypokalemia Status: Acute (2) Respiratory failure Status: Acute (3) Septic shock Status: Acute - Assessment and Plan (Free Text) Assessment: 81 year old female Recently treated here for UTI/ Pneumonia and exac COPD Treated for 10 + days with IV antibiotics before transfer to [place] where she was reportedly continued on IV antibiotic rx Now appears to be septic again with hypotension , + troponins IV antibiotics reordered after cultures taken Cannot r/o hypoxic encephalopathy
[2017-07-20] MEDS ORDERED: Gentamicin 240 MG in Sodium Chloride 0.9% 100 ML IVPB STA (17:20)
--- NOTE | 2017-07-20 17:20 | PCM.PROC ---
Procedures Attestation:: I certify that I have explained the specified Operation(s) or Procedure(s), risks, benefits and reasonable alternatives to the Patient and/or other person responsible. The opportunity was given to ask questions and all questions answered - Central Line Placement Right Internal Jugular Triple Lumen Catheter Aseptic technique was employed throughout the procedure: Hand Hygiene done prior to procedure, Full sterile barriers (mask, hair cover, sterile gown, sterile gloves), Full body sterile drape, Chloraprep Antiseptic: 30 second prep for IJ or SC sites CVP Time Out Performed: Yes Pt. Placed on Pulse Ox Monitor: Yes Central Line Prep: Povidone-Iodine 1% Local Anesthesia Used: Lidocaine 1% Ultrasound Used for Placement: Yes Central Line Lumen Inserted: triple Central Line Length: 20 cm Post Procedure: Sutured in Place, Good Blood Return, Sterile Dressing Applied Secured by: Suture Post procedure dressing: Gauze, Clear vapor permeable, Chlorhexidine disc ( Biopatch) Post Procedure X-Ray: Yes Patient Tolerated Procedure: Well Immediate Complications: None
[2017-07-20] MEDS: Aztreonam 2 GM in Sodium Chloride 0.9% 100 ML IVPB SCH (17:53)
--- NOTE | 2017-07-20 17:56 | CP.PCM.PN ---
Subjective - Date & Time of Evaluation Date of Evaluation: 07/20/17 Time of Evaluation: 13:10 - Subjective Subjective: clinically same Objective - Vital Signs/Intake and Output Vital Signs (last 24 hours): Temp Pulse Resp BP Pulse Ox 97.0 F L 134 H 12 45/25 L 100 07/20/17 12:20 07/20/17 12:20 07/20/17 12:20 07/20/17 12:14 07/20/17 12:20 Intake and Output: 07/20/17 07/20/17 06:59 18:59 Intake Total 2200 Output Total 145 Balance 2054 - Medications Medications: Current Medications Acetaminophen (Tylenol 325 Mg Supp) 975 mg IA ONCE PRN PRN Reason: Fever >100.4 F Albuterol/Ipratropium (Duoneb 3 Mg/0.5 Mg (3 Ml) Ud) 3 ml INH RQ6 [facility] Clopidogrel Bisulfate (Plavix) 75 mg PO DAILY [facility] Last Admin: 07/20/17 15:05 Dose: 75 mg Famotidine (Pepcid) 20 mg IVP DAILY [facility] Heparin Sodium (Porcine) (Heparin) 5,000 units SC Q8 [facility] Hydrocortisone Sodium Succinate (Solu-Cortef) 100 mg IV Q8H [facility] Last Admin: 07/20/17 15:02 Dose: 100 mg Norepinephrine Bitartrate 4 mg (/ Sodium Chloride) 254 mls @ 19.05 mls/hr IV .[id number] PRN; Protocol; 5 MCG/MIN PRN Reason: TITRATE PER MD ORDER Last Admin: 07/20/17 11:25 Dose: 19.05 mls/hr Aztreonam 2 gm/ Sodium (Chloride) 100 mls @ 200 mls/hr IVPB Q8H [facility] Last Admin: 07/20/17 17:53 Dose: 200 mls/hr Metronidazole (Flagyl) 500 mg in 100 mls @ 100 mls/hr IVPB Q8 [facility] Sodium Chloride (Sodium Chloride 0.9%) 1,000 mls @ 250 mls/hr IV .Q4H [facility] Stop: 07/20/17 18:29 Last Admin: 07/20/17 15:02 Dose: 250 mls/hr Linezolid (Zyvox 600mg/300ml D5w) 600 mg in 300 mls @ 200 mls/hr IVPB Q12 [facility] Vancomycin/Sodium Chloride (Vancomycin 1 Gm/Ns 200 Ml) 1 gm in 200 mls @ 133.333 mls/hr IVPB Q24H [facility] Stop: 07/25/17 18:01 Gentamicin Sulfate 240 mg/ (Sodium Chloride) 106 mls @ 100 mls/hr IVPB STAT [facility] Stop: 07/20/17 18:23 Fluconazole (Diflucan Iv 200 Mg/100 Ml Ns) 100 mls @ 100 mls/hr IVPB DAILY [facility] Insulin Aspart (Novolog) 0 unit SC Q6H [facility] PRN Reason: Protocol Montelukast Sodium (Singulair) 10 mg PO HS [facility] Rosuvastatin Calcium (Crestor) 2.5 mg PO HS [facility] - Labs Labs: 07/20/17 10:42 07/20/17 10:42 PT 10.8 SECONDS (9.7-12.2) 07/20/17 10:42 INR 1.0 07/20/17 10:42 APTT 22 SECONDS (21-34) 07/20/17 17:41 - Constitutional Appears: Well - Head Exam Head Exam: ATRAUMATIC, NORMAL INSPECTION, NORMOCEPHALIC - Eye Exam Eye Exam: EOMI, Normal appearance, PERRL Pupil Exam: NORMAL ACCOMODATION, PERRL - ENT Exam ENT Exam: Mucous Membranes Moist, Normal Exam - Neck Exam Neck Exam: Full ROM, Normal Inspection. absent: Lymphadenopathy - Respiratory Exam Respiratory Exam: Decreased Breath Sounds - Cardiovascular Exam Cardiovascular Exam: REGULAR RHYTHM, +S1, +S2 - GI/Abdominal Exam GI & Abdominal Exam: Soft, Diminished Bowel Sounds - Rectal Exam Rectal Exam: Deferred
--- NOTE | 2017-07-20 18:00 | CP.PCM.HP ---
Past Patient History - Infectious Disease Hx of Infectious Diseases: None - Past Medical History & Family History Past Medical History?: Yes - Past Social History Smoking Status: Never Smoked - CARDIAC Hx Hypercholesterolemia: Yes Hx Hypertension: Yes - PULMONARY Hx Asthma: Yes Hx Bronchitis: Yes Hx Chronic Obstructive Pulmonary Disease (COPD): Yes Hx Pneumonia: Yes - NEUROLOGICAL Hx Neurological Disorder: No - HEENT Other/Comment: WEARS GLASSES - RENAL Hx Chronic Kidney Disease: No - ENDOCRINE/METABOLIC Hx Endocrine Disorders: Yes - HEMATOLOGICAL/ONCOLOGICAL Hx Blood Disorders: Yes Hx Cancer: Yes (Esophagus) - INTEGUMENTARY Hx Dermatological Problems: No - MUSCULOSKELETAL/RHEUMATOLOGICAL Hx Arthritis: Yes (R TKR; BACK PAIN) - GASTROINTESTINAL Hx Gastrointestinal Disorders: Yes Hx Gastroesophageal Reflux: Yes Other/Comment: hx of esophageal CA - GENITOURINARY/GYNECOLOGICAL Hx Genitourinary Disorders: Yes - PSYCHIATRIC Hx Substance Use: No - SURGICAL HISTORY Hx Surgeries: Yes Hx Breast Biopsy: Yes Hx Hysterectomy: Yes Hx Orthopedic Surgery: Yes (RTKR) Other/Comment: ESOPHAGEAL SX - ANESTHESIA Hx Anesthesia: Yes Hx Anesthesia Reactions: No Hx Malignant Hyperthermia: No Meds Allergies/Adverse Reactions: Allergies Allergy/AdvReac Type Severity Reaction Status Date / Time aspirin Allergy Severe RASH Verified 07/20/17 09:44 ciprofloxacin [From Cipro] Allergy Severe RASH Verified 07/20/17 09:44 ciprofloxacin HCl Allergy Severe RASH Verified 07/20/17 09:44 [From Cipro] nitrofurantoin Allergy Severe RASH Verified 07/20/17 09:44 [From Macrobid] nitrofurantoin Allergy Severe RASH Verified 07/20/17 09:44 macrocrystalline [From Macrobid] Penicillins Allergy Severe RASH Verified 07/20/17 09:44 Sulfa (Sulfonamide Allergy Severe RASH Verified 07/20/17 09:44 Antibiotics) azithromycin Allergy ITCHING Verified 07/20/17 09:44 Physical Exam - Constitutional Appears: Well - Head Exam Head Exam: ATRAUMATIC, NORMAL INSPECTION, NORMOCEPHALIC - Eye Exam Eye Exam: EOMI, Normal appearance, PERRL Pupil Exam: NORMAL ACCOMODATION, PERRL - ENT Exam ENT Exam: Mucous Membranes Moist, Normal Exam - Neck Exam Neck exam: Positive for: Normal Inspection - Respiratory Exam Respiratory Exam: Decreased Breath Sounds - Cardiovascular Exam Cardiovascular Exam: REGULAR RHYTHM, +S1, +S2 - GI/Abdominal Exam GI & Abdominal Exam: Diminished Bowel Sounds, Soft - Rectal Exam Rectal Exam: Deferred Results - Vital Signs Recent Vital Signs: Last Vital Signs Temp 97.0 F L 07/20/17 12:20 Pulse 134 H 07/20/17 12:20 Resp 12 07/20/17 12:20 BP 45/25 L 07/20/17 12:14 Pulse Ox 100 07/20/17 12:20 - Labs Result Diagrams: 07/20/17 10:42 07/20/17 10:42 Labs: Laboratory Results - last 24 hr 07/20/17 07/20/17 07/20/17 10:18 10:35 10:37 WBC RBC Hgb Hct MCV MCH MCHC RDW Plt Count MPV Neut % (Auto) Lymph % (Auto) Wise % (Auto) Eos % (Auto) Baso % (Auto) Neut # (Auto) Lymph # (Auto) Wise # (Auto) Eos # (Auto) Baso # (Auto) Neutrophils % (Manual) Lymphocytes % (Manual) Monocytes % (Manual) Nucleated RBC % Platelet Estimate Polychromasia Hypochromasia (manual) Anisocytosis (manual) PT INR APTT Puncture Site Lb pCO2 33 L pO2 417 H HCO3 22.7 ABG pH 7.41 ABG Total CO2 21.9 L ABG O2 Saturation 99.6 H ABG Base Excess -2.9 L Issa Test Na ABG Potassium 2.2 L* A-a O2 Difference 255.0 Respiratory Index 0.6 Sodium 132.0 Chloride 103.0 Glucose 131 H Lactate 0.8 Mechanical Rate 12 FiO2 100.0 Tidal Volume 450 PEEP 5 Crit Value Called To Dr morin Crit Value Called By Alexandr may oncology consultant Crit Value Read Back Y Blood Gas Notified Time 1050 Potassium Carbon Dioxide Anion Gap BUN Creatinine Est GFR ( Amer) Est GFR (Non-Af Amer) Random Glucose Lactic Acid Calcium Phosphorus Magnesium Total Bilirubin AST ALT Alkaline Phosphatase Troponin I Total Protein Albumin Globulin Albumin/Globulin Ratio Arterial Blood Potassium 2.2 L* Urine Color Yellow Urine Clarity Hazy Urine pH 5.0 Ur Specific [place] 1.015 Urine Protein 2+ H Urine Glucose (UA) Normal Urine Ketones Negative Urine Blood Negative Urine Nitrate Negative Urine Bilirubin Negative Urine Urobilinogen Normal Ur Leukocyte Esterase 3+ H Urine WBC (Auto) 299 H Ur Squamous Epith Cells 1 Urine Yeast (Budding) Many H Random Vancomycin Influenza Typ A,B (EIA) Negative for flu a/b 07/20/17 07/20/17 07/20/17 10:42 10:42 10:42 WBC 16.5 H RBC 3.06 L Hgb 9.8 L Hct 29.3 L MCV 95.8 MCH 32.1 H MCHC 33.5 RDW 19.0 H Plt Count 183 MPV 7.6 Neut % (Auto) 88.0 H Lymph % (Auto) 6.2 L Wise % (Auto) 5.4 Eos % (Auto) 0.2 Baso % (Auto) 0.2 Neut # (Auto) 14.5 H Lymph # (Auto) 1.0 Wise # (Auto) 0.9 H Eos # (Auto) 0.0 Baso # (Auto) 0.0 Neutrophils % (Manual) 92 H Lymphocytes % (Manual) 2 L Monocytes % (Manual) 6 Nucleated RBC % 1 H Platelet Estimate Normal Polychromasia Slight Hypochromasia (manual) Slight Anisocytosis (manual) Slight PT 10.8 INR 1.0 APTT 25 Puncture Site pCO2 pO2 HCO3 ABG pH ABG Total CO2 ABG O2 Saturation ABG Base Excess Issa Test ABG Potassium A-a O2 Difference Respiratory Index Sodium 131 L Chloride 97 L Glucose Lactate Mechanical Rate FiO2 Tidal Volume PEEP Crit Value Called To Crit Value Called By Crit Value Read Back Blood Gas Notified Time Potassium 2.6 L Carbon Dioxide 24 Anion Gap 12 BUN 14 Creatinine 0.5 L Est GFR ( Amer) > 60 Est GFR (Non-Af Amer) > 60 Random Glucose 125 H Lactic Acid Calcium 7.4 L Phosphorus 2.5 Magnesium 1.4 L Total Bilirubin 0.2 AST 19 ALT 48 Alkaline Phosphatase 64 Troponin I 0.2240 H* Total Protein 5.0 L Albumin 2.5 L Globulin 2.5 Albumin/Globulin Ratio 1.0 Arterial Blood Potassium Urine Color Urine Clarity Urine pH Ur Specific [place] Urine Protein Urine Glucose (UA) Urine Ketones Urine Blood Urine Nitrate Urine Bilirubin Urine Urobilinogen Ur Leukocyte Esterase Urine WBC (Auto) Ur Squamous Epith Cells Urine Yeast (Budding) Random Vancomycin Influenza Typ A,B (EIA) 07/20/17 07/20/17 07/20/17 10:42 17:41 17:41 WBC RBC Hgb Hct MCV MCH MCHC RDW Plt Count MPV Neut % (Auto) Lymph % (Auto) Wise % (Auto) Eos % (Auto) Baso % (Auto) Neut # (Auto) Lymph # (Auto) Wise # (Auto) Eos # (Auto) Baso # (Auto) Neutrophils % (Manual) Lymphocytes % (Manual) Monocytes % (Manual) Nucleated RBC % Platelet Estimate Polychromasia Hypochromasia (manual) Anisocytosis (manual) PT INR APTT 22 Puncture Site pCO2 pO2 HCO3 ABG pH ABG Total CO2 ABG O2 Saturation ABG Base Excess Issa Test ABG Potassium A-a O2 Difference Respiratory Index Sodium Chloride Glucose Lactate Mechanical Rate FiO2 Tidal Volume PEEP Crit Value Called To Crit Value Called By Crit Value Read Back Blood Gas Notified Time Potassium Carbon Dioxide Anion Gap BUN Creatinine Est GFR ( Amer) Est GFR (Non-Af Amer) Random Glucose Lactic Acid 1.5 Calcium Phosphorus Magnesium Total Bilirubin AST ALT Alkaline Phosphatase Troponin I Total Protein Albumin Globulin Albumin/Globulin Ratio Arterial Blood Potassium Urine Color Urine Clarity Urine pH Ur Specific [place] Urine Protein Urine Glucose (UA) Urine Ketones Urine Blood Urine Nitrate Urine Bilirubin Urine Urobilinogen Ur Leukocyte Esterase Urine WBC (Auto) Ur Squamous Epith Cells Urine Yeast (Budding) Random Vancomycin 23.41 Influenza Typ A,B (EIA)
--- NOTE | 2017-07-20 18:33 | RAD ---
HISTORY: s/p tlc COMPARISON: Portable chest 07/20/2017. FINDINGS: Endotracheal and nasogastric tubes are unchanged in position. Right internal jugular central venous line is in place terminating at the cavoatrial junction. LUNGS: Limited airspace disease remains in the medial left base, borderline at the lateral right base PLEURA: Trace bilateral pleural effusions are not excluded. No pneumothorax bilaterally. CARDIOVASCULAR: Cardiomediastinal silhouette stable. OSSEOUS STRUCTURES: No significant abnormalities. VISUALIZED UPPER ABDOMEN: Normal. OTHER FINDINGS: None. IMPRESSION: Interval right center venous line in good apparent position as discussed above. No pneumothorax bilaterally. Stable ET tube and nasogastric tube as discussed above. Trace bilateral pleural effusions and limited basilar atelectasis or infiltrate remains.
[2017-07-20] MEDS: (Novolog) Insulin Aspart, Recombinant 100 u/ml 10 ml vial SC SCH (18:40)
[2017-07-20] MEDS ORDERED: Alum-Mag Hydrox-Simethicone Susp (30 mL) PO PRN (20:00)
[2017-07-20] MEDS: metroNIDAZOLE IV 500 mg/100 ml 500 MG/100 ML BAG IVPB SCH (21:00)
[2017-07-20] MEDS: Linezolid 600 mg in D5W 300 ml 600 MG/300 ML BAG IVPB SCH (21:45)
[2017-07-20] MEDS ORDERED: Rosuvastatin Calcium 2.5 mg Tab PO SCH (22:00)
[2017-07-20] MEDS: Budesonide 0.5 mg/2 ml Inhal Susp UD IH SCH (22:04)
[2017-07-21] MEDS ORDERED: Albuterol-Ipratrop 3 mg / 0.5 (3 ml) UD IH SCH
[2017-07-21] MEDS: Aztreonam 2 GM in Sodium Chloride 0.9% 100 ML IVPB SCH ×3 (01:00→16:12)
[2017-07-21] MEDS: Albuterol-Ipratrop 3 mg / 0.5 (3 ml) UD INH SCH ×4 (02:25→20:47)
[2017-07-21] MEDS: metroNIDAZOLE IV 500 mg/100 ml 500 MG/100 ML BAG IVPB SCH ×3 (05:00→21:08)
[2017-07-21] MEDS: (Novolog) Insulin Aspart, Recombinant 100 u/ml 10 ml vial SC SCH ×4 (05:04→17:53)
[2017-07-21 06:07] LABS: ABG ALLEN TEST POS; ARTERIAL BLOOD GAS HCO3 18.1 mmol/L (21-28); ARTERIAL BLOOD GAS O2 SAT 99.2 % (95-98); ARTERIAL BLOOD GAS PCO2 21 mm/Hg (35-45); ARTERIAL BLOOD GAS PH 7.43 (7.35-7.45); ARTERIAL BLOOD GAS PO2 210 mm/Hg (80-100); ARTERIAL BLOOD GAS TCO2 14.5 mmol/L (22-28)
[2017-07-21 06:15] LABS: BASO % 0.2 % (0.0-2.0); HEMOGLOBIN 8.8 g/dL (11.0-16.0); LYMPH # 0.3 K/uL (1.0-4.3); MEAN CORPUSCULAR HEMOGLOBIN 32.5 pg (27.0-31.0); MEAN CORPUSCULAR HGB CONC 33.8 g/dL (33.0-37.0); MEAN PLATELET VOLUME 8.5 fL (7.2-11.7); MONO # 0.5 K/uL (0.0-0.8); NEUT # 15.3 K/uL (1.8-7.0); NEUT % 94.8 % (50.0-75.0); NRBC % 0.3 % (0.0-2.0); PLATELET COUNT 206 K/uL (130-400); RED CELL DISTRIBUTION WIDTH 19.6 % (11.5-14.5); WHITE BLOOD COUNT 16.1 K/uL (4.8-10.8)
[2017-07-21 06:36] LABS: ALB/GLOB RATIO 0.9 (1.0-2.1); ALBUMIN 2.4 g/dL (3.5-5.0); ALT/SGPT 45 U/L (9-52); AST/SGOT 14 U/L (14-36); BLOOD UREA NITROGEN 14 mg/dL (7-17); CALCIUM 7.1 mg/dl (8.6-10.4); GFR AFRICAN-AMERICAN > 60; GFR NON-AFRICAN AMERICAN > 60
[2017-07-21] MEDS: Budesonide 0.5 mg/2 ml Inhal Susp UD IH SCH ×2 (08:41→20:47)
--- NOTE | 2017-07-21 08:41 | RAD ---
PROCEDURE: CHEST RADIOGRAPH, 1 VIEW HISTORY: Intubated/ICU Routine COMPARISON: None available. FINDINGS: LUNGS: Pulmonary vascular congestion. Bibasilar atelectasis. PLEURA: Small bilateral pleural effusions. No appreciable pneumothorax. CARDIOVASCULAR: Atherosclerotic aortic calcifications. Cardiomediastinal silhouette stably enlarged. OSSEOUS STRUCTURES: Unchanged. VISUALIZED UPPER ABDOMEN: Normal. OTHER FINDINGS: Endotracheal and enteric tubes, unchanged. Right internal jugular access central venous catheter, unchanged. . IMPRESSION: Stable lines and tubes. Grossly stable pulmonary vascular congestion small bilateral pleural effusions. No significant interval train.
[2017-07-21 09:22] LABS: BANDS 3 % (0-2); TOTAL CELLS COUNTED 100
[2017-07-21 09:23] LABS: ANISOCYTOSIS MODERATE; LYMPHOCYTE 3 % (20-40); MICROCYTOSIS SLIGHT; MONOCYTE 3 % (0-10); NEUTROPHIL 91 % (50-75); PLATELET ESTIMATE NORMAL (NORMAL); POIKILOCYTOSIS SLIGHT
[2017-07-21 09:24] LABS: BURR CELLS SLIGHT; OVALOCYTES SLIGHT; SCHISTOCYTES SLIGHT; TEARDROP CELLS SLIGHT
[2017-07-21 09:25] LABS: LARGE PLATELETS PRESENT
[2017-07-21] MEDS: Fluconazole IV 200mg/100 ml NS 100 ML IVPB SCH (09:32)
[2017-07-21] MEDS: Linezolid 600 mg in D5W 300 ml 600 MG/300 ML BAG IVPB SCH ×2 (09:33→21:09)
--- NOTE | 2017-07-21 09:33 | CP.CCUPN ---
CCU Subjective - Physician Review Events Since Last Encounter (Free Text): Patient intubated, not on any sedation, still on pressors, start tube feeds. CT head pending 07/21/17 09:33 Subjective (Free Text): still on pressors, intubated not able to provide ROS CCU Objective - Vital Signs / Intake & Output Vital Signs (Last 4 hours): Vital Signs Temp Pulse Resp BP Pulse Ox 07/21/17 09:28 68 20 119/80 100 07/21/17 09:00 70 22 100 07/21/17 08:50 72 20 100 07/21/17 08:46 78 20 122/76 07/21/17 08:40 70 20 100 07/21/17 08:30 73 20 100 07/21/17 08:20 83 20 100 07/21/17 08:16 81 20 125/75 100 07/21/17 08:10 78 20 100 07/21/17 08:00 97.7 F 82 20 100 07/21/17 07:50 79 20 100 07/21/17 07:46 80 20 130/78 100 07/21/17 07:40 90 20 100 07/21/17 07:30 83 20 100 07/21/17 07:20 82 20 100 07/21/17 07:16 81 20 126/79 100 07/21/17 07:10 83 20 100 07/21/17 07:06 75 20 145/80 100 07/21/17 07:00 72 20 100 07/21/17 06:50 77 20 100 07/21/17 06:46 72 20 136/78 100 07/21/17 06:40 72 20 100 07/21/17 06:30 74 20 100 07/21/17 06:20 76 20 100 07/21/17 06:16 79 20 138/80 100 07/21/17 06:10 72 20 100 07/21/17 06:04 73 20 135/81 07/21/17 06:00 77 20 100 07/21/17 05:50 72 20 100 07/21/17 05:40 71 20 100 Intake and Output (Last 8hrs): Intake & Output 07/20/17 07/21/17 07/21/17 22:59 06:59 14:59 Intake Total 1103.5 1109 230 Output Total 166 448 175 Balance 937.5 661 55 Weight 162 lb 8 oz Intake: IV 284 170 Intake, IV Amount 1103.5 825 60 Right Distal Port 450 100 Internal Jugular Right Internal Jugular 100 Right Medial Port 100 400 Internal Jugular Right Proximal Port 453.5 325 60 Internal Jugular Oral 0 Output: Gastric Amount 160 Right Nares 160 Urine 166 448 15 Urethral (Monzon) 166 448 15 Stool 0 Other: # Voids Urethral (Monzon) 300 # Bowel Movements 0 0 - Physical Exam Physical Exam Limitations: Positive for: Altered Mental Status Pupils: Positive for: Sluggish Conjunctiva: Positive for: Normal Mouth: Positive for: Moist Mucous Membranes Respiratory/Chest: Positive for: Clear to Auscultation, Good Air Exchange. Negative for: Respiratory Distress Cardiovascular: Positive for: Regular Rate and Rhythm, Normal S1, S2, Rub Abdomen: Positive for: Distention, Normal Bowel Sounds. Negative for: Peritoneal Signs Upper Extremity: Positive for: Edema Lower Extremity: Positive for: Edema Neurological: Positive for: Other (not responsive to verbal stimuli) - Medications Active Medications: Active Medications Generic Name Dose Route Start Last Admin Trade Name Freq PRN Reason Stop Dose Admin Acetaminophen 975 mg 07/20/17 10:16 Tylenol 325 Mg Supp MS ONCE PRN Fever >100.4 F Al Hydrox/Mg Hydrox/Simethicone 30 ml 07/20/17 20:00 Maalox Plus 30 Ml PO Q4 PRN Albuterol/Ipratropium 3 ml 07/20/17 20:00 07/21/17 08:41 Duoneb 3 Mg/0.5 Mg (3 Ml) Ud INH 3 ml RQ6 IKE Administration Budesonide 0.5 mg 07/20/17 21:00 07/21/17 08:41 Pulmicort Respules IH 0.5 mg RQ12 IKE Administration Clopidogrel Bisulfate 75 mg 07/20/17 14:45 07/20/17 15:05 Plavix PO 75 mg DAILY IKE Administration Docusate Sodium 100 mg 07/21/17 10:00 Colace PO DAILY IKE Famotidine 20 mg 07/21/17 10:00 Pepcid PO DAILY IKE Folic Acid 1 mg 07/21/17 10:00 Folic Acid PO DAILY IKE Heparin Sodium (Porcine) 5,000 units 07/20/17 22:00 07/21/17 05:02 Heparin SC 5,000 units Q8 IKE Administration Hydrocortisone Sodium Succinate 100 mg 07/20/17 14:45 07/21/17 05:47 Solu-Cortef IV 100 mg Q8H IKE Administration Norepinephrine Bitartrate 4 mg 254 mls @ 19.05 mls/hr 07/20/17 11:30 09:28 / Sodium Chloride IV 8 mcg/min .[id number] PRN 30.48 mls/hr TITRATE PER MD ORDER Administration Protocol 5 MCG/MIN Aztreonam 2 gm/ Sodium 100 mls @ 200 mls/hr 07/20/17 17:00 07/21/17 08:20 Chloride IVPB 200 mls/hr Q8H IKE Administration Metronidazole 500 mg in 100 mls @ 100 mls/hr 07/20/17 22:00 07/21/17 05:00 Flagyl IVPB 100 mls/hr Q8 IKE Administration Linezolid 600 mg in 300 mls @ 200 mls/hr 07/20/17 22:00 07/20/17 21:45 Zyvox 600mg/300ml D5w IVPB 200 mls/hr Q12 IKE Administration Fluconazole 100 mls @ 100 mls/hr 07/21/17 10:00 Diflucan Iv 200 Mg/100 Ml Ns IVPB DAILY IKE Insulin Aspart 0 unit 07/20/17 18:00 07/21/17 05:04 Novolog SC 2 unit Q6H IKE Administration Protocol Montelukast Sodium 10 mg 07/20/17 22:00 07/20/17 21:50 Singulair PO 10 mg HS IKE Administration Potassium Chloride 10 meq 07/21/17 10:00 Klor-Con 10 PO DAILY IKE Rosuvastatin Calcium 10 mg 07/20/17 22:00 07/20/17 22:03 Crestor PO 10 mg HS IKE Administration - Patient Studies Lab Studies: Lab Studies 07/21/17 07/21/17 07/21/17 Range/Units 06:08 06:07 05:18 WBC 16.1 H (4.8-10.8) K/uL RBC 2.70 L (3.80-5.20) Mil/uL Hgb 8.8 L (11.0-16.0) g/dL Hct 26.0 L (34.0-47.0) % MCV 96.0 (81.0-99.0) fL MCH 32.5 H (27.0-31.0) pg MCHC 33.8 (33.0-37.0) g/dL RDW 19.6 H (11.5-14.5) % Plt Count 206 (130-400) K/uL MPV 8.5 (7.2-11.7) fL Neut % (Auto) 94.8 H (50.0-75.0) % Lymph % (Auto) 2.0 L (20.0-40.0) % Wake % (Auto) 3.0 (0.0-10.0) % Eos % (Auto) 0.0 (0.0-4.0) % Baso % (Auto) 0.2 (0.0-2.0) % Neut # (Auto) 15.3 H (1.8-7.0) K/uL Lymph # (Auto) 0.3 L (1.0-4.3) K/uL Wake # (Auto) 0.5 (0.0-0.8) K/uL Eos # (Auto) 0.0 (0.0-0.7) K/uL Baso # (Auto) 0.0 (0.0-0.2) K/uL Neutrophils % (Manual) 91 H (50-75) % Band Neutrophils % 3 H (0-2) % Lymphocytes % (Manual) 3 L (20-40) % Monocytes % (Manual) 3 (0-10) % Nucleated RBC % (0-0) % Platelet Estimate Normal (NORMAL) Large Platelets Present Polychromasia Hypochromasia (manual) Poikilocytosis (manual Slight Anisocytosis (manual) Moderate Microcytosis (manual) Slight Macrocytosis (manual) Slight Tear Drop Cells Slight Ovalocytes Slight Padmini Cells Slight Schistocytes Slight PT (9.7-12.2) SECONDS INR APTT (21-34) SECONDS Puncture Site Rr pCO2 21 L (35-45) mm/Hg pO2 210 H (80-100) mm/Hg HCO3 18.1 L (21-28) mmol/L ABG pH 7.43 (7.35-7.45) ABG Total CO2 14.5 L (22-28) mmol/L ABG O2 Saturation 99.2 H (95-98) % ABG Base Excess -8.8 L (-2.0-3.0) mmol/L ABG Hemoglobin 10.0 L (11.7-17.4) g/dL ABG Carboxyhemoglobin 1.4 (0.5-1.5) % POC ABG HHb (Measured) 0.8 (0.0-5.0) % ABG Methemoglobin 1.0 (0.0-3.0) % Issa Test Pos ABG Potassium (3.6-5.2) mmol/L A-a O2 Difference 120.0 mm/Hg Respiratory Index 0.6 Hgb O2 Saturation 96.9 (95.0-98.0) % Sodium 136 (132-148) mmol/l Chloride 109 H (98-107) mmol/L Glucose (65-105) mg/dl Lactate (0.7-2.1) mmol/L Vent Mode Prvc Mechanical Rate 20 FiO2 50.0 % Tidal Volume 450 PEEP 5 Crit Value Called To Crit Value Called By Crit Value Read Back Blood Gas Notified Time Potassium 4.5 (3.6-5.2) mmol/L Carbon Dioxide 17 L (22-30) mmol/L Anion Gap 15 (10-20) BUN 14 (7-17) mg/dL Creatinine 0.4 L (0.7-1.2) mg/dL Est GFR ( Amer) > 60 Est GFR (Non-Af Amer) > 60 POC Glucose (mg/dL) (65-110) mg/dL Random Glucose 223 H (65-105) mg/dL Lactic Acid (0.7-2.1) mmol/L Calcium 7.1 L (8.6-10.4) mg/dl Phosphorus 2.7 (2.5-4.5) mg/dL Magnesium 2.0 (1.6-2.3) mg/dL Total Bilirubin 0.3 (0.2-1.3) mg/dL AST 14 D (14-36) U/L ALT 45 (9-52) U/L Alkaline Phosphatase 63 (38-126) U/L Troponin I (0.00-0.120) ng/mL Total Protein 5.1 L (6.3-8.3) g/dL Albumin 2.4 L (3.5-5.0) g/dL Globulin 2.7 (2.2-3.9) gm/dL Albumin/Globulin Ratio 0.9 L (1.0-2.1) Arterial Blood Potassium (3.6-5.2) mmol/L Urine Color (YELLOW) Urine Clarity (Clear) Urine pH (5.0-8.0) Ur Specific Grant (1.003-1.030) Urine Protein (NEGATIVE) mg/dL Urine Glucose (UA) (Normal) mg/dL Urine Ketones (NEGATIVE) mg/dL Urine Blood (NEGATIVE) Urine Nitrate (NEGATIVE) Urine Bilirubin (NEGATIVE) Urine Urobilinogen (0.2-1.0) mg/dL Ur Leukocyte Esterase (Negative) Jose Luis/uL Urine WBC (Auto) (0-5) /hpf Ur Squamous Epith Cells (0-5) /hpf Urine Yeast (Budding) (NEGATIVE) /hpf Random Vancomycin ug/mL Influenza Typ A,B (EIA) (NEGATIVE) 07/21/17 07/21/17 07/20/17 Range/Units 05:00 00:16 22:38 WBC (4.8-10.8) K/uL RBC (3.80-5.20) Mil/uL Hgb (11.0-16.0) g/dL Hct (34.0-47.0) % MCV (81.0-99.0) fL MCH (27.0-31.0) pg MCHC (33.0-37.0) g/dL RDW (11.5-14.5) % Plt Count (130-400) K/uL MPV (7.2-11.7) fL Neut % (Auto) (50.0-75.0) % Lymph % (Auto) (20.0-40.0) % Wake % (Auto) (0.0-10.0) % Eos % (Auto) (0.0-4.0) % Baso % (Auto) (0.0-2.0) % Neut # (Auto) (1.8-7.0) K/uL Lymph # (Auto) (1.0-4.3) K/uL Wake # (Auto) (0.0-0.8) K/uL Eos # (Auto) (0.0-0.7) K/uL Baso # (Auto) (0.0-0.2) K/uL Neutrophils % (Manual) (50-75) % Band Neutrophils % (0-2) % Lymphocytes % (Manual) (20-40) % Monocytes % (Manual) (0-10) % Nucleated RBC % (0-0) % Platelet Estimate (NORMAL) Large Platelets Polychromasia Hypochromasia (manual) Poikilocytosis (manual Anisocytosis (manual) Microcytosis (manual) Macrocytosis (manual) Tear Drop Cells Ovalocytes [place] Cells Schistocytes PT (9.7-12.2) SECONDS INR APTT (21-34) SECONDS Puncture Site pCO2 (35-45) mm/Hg pO2 (80-100) mm/Hg HCO3 (21-28) mmol/L ABG pH (7.35-7.45) ABG Total CO2 (22-28) mmol/L ABG O2 Saturation (95-98) % ABG Base Excess (-2.0-3.0) mmol/L ABG Hemoglobin (11.7-17.4) g/dL ABG Carboxyhemoglobin (0.5-1.5) % POC ABG HHb (Measured) (0.0-5.0) % ABG Methemoglobin (0.0-3.0) % Issa Test ABG Potassium (3.6-5.2) mmol/L A-a O2 Difference mm/Hg Respiratory Index Hgb O2 Saturation (95.0-98.0) % Sodium (132-148) mmol/l Chloride (98-107) mmol/L Glucose (65-105) mg/dl Lactate (0.7-2.1) mmol/L Vent Mode Mechanical Rate FiO2 % Tidal Volume PEEP Crit Value Called To Crit Value Called By Crit Value Read Back Blood Gas Notified Time Potassium (3.6-5.2) mmol/L Carbon Dioxide (22-30) mmol/L Anion Gap (10-20) BUN (7-17) mg/dL Creatinine (0.7-1.2) mg/dL Est GFR ( Amer) Est GFR (Non-Af Amer) POC Glucose (mg/dL) 249 H 288 H (65-110) mg/dL Random Glucose (65-105) mg/dL Lactic Acid (0.7-2.1) mmol/L Calcium (8.6-10.4) mg/dl Phosphorus (2.5-4.5) mg/dL Magnesium (1.6-2.3) mg/dL Total Bilirubin (0.2-1.3) mg/dL AST (14-36) U/L ALT (9-52) U/L Alkaline Phosphatase (38-126) U/L Troponin I 0.0890 (0.00-0.120) ng/mL Total Protein (6.3-8.3) g/dL Albumin (3.5-5.0) g/dL Globulin (2.2-3.9) gm/dL Albumin/Globulin Ratio (1.0-2.1) Arterial Blood Potassium (3.6-5.2) mmol/L Urine Color (YELLOW) Urine Clarity (Clear) Urine pH (5.0-8.0) Ur Specific Grant (1.003-1.030) Urine Protein (NEGATIVE) mg/dL Urine Glucose (UA) (Normal) mg/dL Urine Ketones (NEGATIVE) mg/dL Urine Blood (NEGATIVE) Urine Nitrate (NEGATIVE) Urine Bilirubin (NEGATIVE) Urine Urobilinogen (0.2-1.0) mg/dL Ur Leukocyte Esterase (Negative) Jose Luis/uL Urine WBC (Auto) (0-5) /hpf Ur Squamous Epith Cells (0-5) /hpf Urine Yeast (Budding) (NEGATIVE) /hpf Random Vancomycin ug/mL Influenza Typ A,B (EIA) (NEGATIVE) 07/20/17 07/20/17 07/20/17 Range/Units 22:38 18:33 17:41 WBC (4.8-10.8) K/uL RBC (3.80-5.20) Mil/uL Hgb (11.0-16.0) g/dL Hct (34.0-47.0) % MCV (81.0-99.0) fL MCH (27.0-31.0) pg MCHC (33.0-37.0) g/dL RDW (11.5-14.5) % Plt Count (130-400) K/uL MPV (7.2-11.7) fL Neut % (Auto) (50.0-75.0) % Lymph % (Auto) (20.0-40.0) % Wake % (Auto) (0.0-10.0) % Eos % (Auto) (0.0-4.0) % Baso % (Auto) (0.0-2.0) % Neut # (Auto) (1.8-7.0) K/uL Lymph # (Auto) (1.0-4.3) K/uL Wake # (Auto) (0.0-0.8) K/uL Eos # (Auto) (0.0-0.7) K/uL Baso # (Auto) (0.0-0.2) K/uL Neutrophils % (Manual) (50-75) % Band Neutrophils % (0-2) % Lymphocytes % (Manual) (20-40) % Monocytes % (Manual) (0-10) % Nucleated RBC % (0-0) % Platelet Estimate (NORMAL) Large Platelets Polychromasia Hypochromasia (manual) Poikilocytosis (manual Anisocytosis (manual) Microcytosis (manual) Macrocytosis (manual) Tear Drop Cells Ovalocytes [place] Cells Schistocytes PT (9.7-12.2) SECONDS INR APTT 22 (21-34) SECONDS Puncture Site pCO2 (35-45) mm/Hg pO2 (80-100) mm/Hg HCO3 (21-28) mmol/L ABG pH (7.35-7.45) ABG Total CO2 (22-28) mmol/L ABG O2 Saturation (95-98) % ABG Base Excess (-2.0-3.0) mmol/L ABG Hemoglobin (11.7-17.4) g/dL ABG Carboxyhemoglobin (0.5-1.5) % POC ABG HHb (Measured) (0.0-5.0) % ABG Methemoglobin (0.0-3.0) % Issa Test ABG Potassium (3.6-5.2) mmol/L A-a O2 Difference mm/Hg Respiratory Index Hgb O2 Saturation (95.0-98.0) % Sodium (132-148) mmol/l Chloride (98-107) mmol/L Glucose (65-105) mg/dl Lactate (0.7-2.1) mmol/L Vent Mode Mechanical Rate FiO2 % Tidal Volume PEEP Crit Value Called To Crit Value Called By Crit Value Read Back Blood Gas Notified Time Potassium (3.6-5.2) mmol/L Carbon Dioxide (22-30) mmol/L Anion Gap (10-20) BUN (7-17) mg/dL Creatinine (0.7-1.2) mg/dL Est GFR ( Amer) Est GFR (Non-Af Amer) POC Glucose (mg/dL) 301 H (65-110) mg/dL Random Glucose (65-105) mg/dL Lactic Acid 1.2 (0.7-2.1) mmol/L Calcium (8.6-10.4) mg/dl Phosphorus (2.5-4.5) mg/dL Magnesium (1.6-2.3) mg/dL Total Bilirubin (0.2-1.3) mg/dL AST (14-36) U/L ALT (9-52) U/L Alkaline Phosphatase (38-126) U/L Troponin I (0.00-0.120) ng/mL Total Protein (6.3-8.3) g/dL Albumin (3.5-5.0) g/dL Globulin (2.2-3.9) gm/dL Albumin/Globulin Ratio (1.0-2.1) Arterial Blood Potassium (3.6-5.2) mmol/L Urine Color (YELLOW) Urine Clarity (Clear) Urine pH (5.0-8.0) Ur Specific Grant (1.003-1.030) Urine Protein (NEGATIVE) mg/dL Urine Glucose (UA) (Normal) mg/dL Urine Ketones (NEGATIVE) mg/dL Urine Blood (NEGATIVE) Urine Nitrate (NEGATIVE) Urine Bilirubin (NEGATIVE) Urine Urobilinogen (0.2-1.0) mg/dL Ur Leukocyte Esterase (Negative) Jose Luis/uL Urine WBC (Auto) (0-5) /hpf Ur Squamous Epith Cells (0-5) /hpf Urine Yeast (Budding) (NEGATIVE) /hpf Random Vancomycin ug/mL Influenza Typ A,B (EIA) (NEGATIVE) 07/20/17 07/20/17 07/20/17 Range/Units 17:41 17:41 10:42 WBC (4.8-10.8) K/uL RBC (3.80-5.20) Mil/uL Hgb (11.0-16.0) g/dL Hct (34.0-47.0) % MCV (81.0-99.0) fL MCH (27.0-31.0) pg MCHC (33.0-37.0) g/dL RDW (11.5-14.5) % Plt Count (130-400) K/uL MPV (7.2-11.7) fL Neut % (Auto) (50.0-75.0) % Lymph % (Auto) (20.0-40.0) % Wake % (Auto) (0.0-10.0) % Eos % (Auto) (0.0-4.0) % Baso % (Auto) (0.0-2.0) % Neut # (Auto) (1.8-7.0) K/uL Lymph # (Auto) (1.0-4.3) K/uL Wake # (Auto) (0.0-0.8) K/uL Eos # (Auto) (0.0-0.7) K/uL Baso # (Auto) (0.0-0.2) K/uL Neutrophils % (Manual) (50-75) % Band Neutrophils % (0-2) % Lymphocytes % (Manual) (20-40) % Monocytes % (Manual) (0-10) % Nucleated RBC % (0-0) % Platelet Estimate (NORMAL) Large Platelets Polychromasia Hypochromasia (manual) Poikilocytosis (manual Anisocytosis (manual) Microcytosis (manual) Macrocytosis (manual) Tear Drop Cells Ovalocytes [place] Cells Schistocytes PT (9.7-12.2) SECONDS INR APTT (21-34) SECONDS Puncture Site pCO2 (35-45) mm/Hg pO2 (80-100) mm/Hg HCO3 (21-28) mmol/L ABG pH (7.35-7.45) ABG Total CO2 (22-28) mmol/L ABG O2 Saturation (95-98) % ABG Base Excess (-2.0-3.0) mmol/L ABG Hemoglobin (11.7-17.4) g/dL ABG Carboxyhemoglobin (0.5-1.5) % POC ABG HHb (Measured) (0.0-5.0) % ABG Methemoglobin (0.0-3.0) % Issa Test ABG Potassium (3.6-5.2) mmol/L A-a O2 Difference mm/Hg Respiratory Index Hgb O2 Saturation (95.0-98.0) % Sodium (132-148) mmol/l Chloride (98-107) mmol/L Glucose (65-105) mg/dl Lactate (0.7-2.1) mmol/L Vent Mode Mechanical Rate FiO2 % Tidal Volume PEEP Crit Value Called To Crit Value Called By Crit Value Read Back Blood Gas Notified Time Potassium (3.6-5.2) mmol/L Carbon Dioxide (22-30) mmol/L Anion Gap (10-20) BUN (7-17) mg/dL Creatinine (0.7-1.2) mg/dL Est GFR ( Amer) Est GFR (Non-Af Amer) POC Glucose (mg/dL) (65-110) mg/dL Random Glucose (65-105) mg/dL Lactic Acid 1.5 (0.7-2.1) mmol/L Calcium (8.6-10.4) mg/dl Phosphorus (2.5-4.5) mg/dL Magnesium (1.6-2.3) mg/dL Total Bilirubin (0.2-1.3) mg/dL AST (14-36) U/L ALT (9-52) U/L Alkaline Phosphatase (38-126) U/L Troponin I 0.1300 H* (0.00-0.120) ng/mL Total Protein (6.3-8.3) g/dL Albumin (3.5-5.0) g/dL Globulin (2.2-3.9) gm/dL Albumin/Globulin Ratio (1.0-2.1) Arterial Blood Potassium (3.6-5.2) mmol/L Urine Color (YELLOW) Urine Clarity (Clear) Urine pH (5.0-8.0) Ur Specific Grant (1.003-1.030) Urine Protein (NEGATIVE) mg/dL Urine Glucose (UA) (Normal) mg/dL Urine Ketones (NEGATIVE) mg/dL Urine Blood (NEGATIVE) Urine Nitrate (NEGATIVE) Urine Bilirubin (NEGATIVE) Urine Urobilinogen (0.2-1.0) mg/dL Ur Leukocyte Esterase (Negative) Jose Luis/uL Urine WBC (Auto) (0-5) /hpf Ur Squamous Epith Cells (0-5) /hpf Urine Yeast (Budding) (NEGATIVE) /hpf Random Vancomycin 23.41 ug/mL Influenza Typ A,B (EIA) (NEGATIVE) 07/20/17 07/20/17 07/20/17 Range/Units 10:42 10:42 10:42 WBC 16.5 H (4.8-10.8) K/uL RBC 3.06 L (3.80-5.20) Mil/uL Hgb 9.8 L (11.0-16.0) g/dL Hct 29.3 L (34.0-47.0) % MCV 95.8 (81.0-99.0) fL MCH 32.1 H (27.0-31.0) pg MCHC 33.5 (33.0-37.0) g/dL RDW 19.0 H (11.5-14.5) % Plt Count 183 (130-400) K/uL MPV 7.6 (7.2-11.7) fL Neut % (Auto) 88.0 H (50.0-75.0) % Lymph % (Auto) 6.2 L (20.0-40.0) % Wake % (Auto) 5.4 (0.0-10.0) % Eos % (Auto) 0.2 (0.0-4.0) % Baso % (Auto) 0.2 (0.0-2.0) % Neut # (Auto) 14.5 H (1.8-7.0) K/uL Lymph # (Auto) 1.0 (1.0-4.3) K/uL Wake # (Auto) 0.9 H (0.0-0.8) K/uL Eos # (Auto) 0.0 (0.0-0.7) K/uL Baso # (Auto) 0.0 (0.0-0.2) K/uL Neutrophils % (Manual) 92 H (50-75) % Band Neutrophils % (0-2) % Lymphocytes % (Manual) 2 L (20-40) % Monocytes % (Manual) 6 (0-10) % Nucleated RBC % 1 H (0-0) % Platelet Estimate Normal (NORMAL) Large Platelets Polychromasia Slight Hypochromasia (manual) Slight Poikilocytosis (manual Anisocytosis (manual) Slight Microcytosis (manual) Macrocytosis (manual) Tear Drop Cells Ovalocytes [place] Cells Schistocytes PT 10.8 (9.7-12.2) SECONDS INR 1.0 APTT 25 (21-34) SECONDS Puncture Site pCO2 (35-45) mm/Hg pO2 (80-100) mm/Hg HCO3 (21-28) mmol/L ABG pH (7.35-7.45) ABG Total CO2 (22-28) mmol/L ABG O2 Saturation (95-98) % ABG Base Excess (-2.0-3.0) mmol/L ABG Hemoglobin (11.7-17.4) g/dL ABG Carboxyhemoglobin (0.5-1.5) % POC ABG HHb (Measured) (0.0-5.0) % ABG Methemoglobin (0.0-3.0) % Issa Test ABG Potassium (3.6-5.2) mmol/L A-a O2 Difference mm/Hg Respiratory Index Hgb O2 Saturation (95.0-98.0) % Sodium 131 L (132-148) mmol/l Chloride 97 L (98-107) mmol/L Glucose (65-105) mg/dl Lactate (0.7-2.1) mmol/L Vent Mode Mechanical Rate FiO2 % Tidal Volume PEEP Crit Value Called To Crit Value Called By Crit Value Read Back Blood Gas Notified Time Potassium 2.6 L (3.6-5.2) mmol/L Carbon Dioxide 24 (22-30) mmol/L Anion Gap 12 (10-20) BUN 14 (7-17) mg/dL Creatinine 0.5 L (0.7-1.2) mg/dL Est GFR ( Amer) > 60 Est GFR (Non-Af Amer) > 60 POC Glucose (mg/dL) (65-110) mg/dL Random Glucose 125 H (65-105) mg/dL Lactic Acid (0.7-2.1) mmol/L Calcium 7.4 L (8.6-10.4) mg/dl Phosphorus 2.5 (2.5-4.5) mg/dL Magnesium 1.4 L (1.6-2.3) mg/dL Total Bilirubin 0.2 (0.2-1.3) mg/dL AST 19 (14-36) U/L ALT 48 (9-52) U/L Alkaline Phosphatase 64 (38-126) U/L Troponin I 0.2240 H* (0.00-0.120) ng/mL Total Protein 5.0 L (6.3-8.3) g/dL Albumin 2.5 L (3.5-5.0) g/dL Globulin 2.5 (2.2-3.9) gm/dL Albumin/Globulin Ratio 1.0 (1.0-2.1) Arterial Blood Potassium (3.6-5.2) mmol/L Urine Color (YELLOW) Urine Clarity (Clear) Urine pH (5.0-8.0) Ur Specific Grant (1.003-1.030) Urine Protein (NEGATIVE) mg/dL Urine Glucose (UA) (Normal) mg/dL Urine Ketones (NEGATIVE) mg/dL Urine Blood (NEGATIVE) Urine Nitrate (NEGATIVE) Urine Bilirubin (NEGATIVE) Urine Urobilinogen (0.2-1.0) mg/dL Ur Leukocyte Esterase (Negative) Jose Luis/uL Urine WBC (Auto) (0-5) /hpf Ur Squamous Epith Cells (0-5) /hpf Urine Yeast (Budding) (NEGATIVE) /hpf Random Vancomycin ug/mL Influenza Typ A,B (EIA) (NEGATIVE) 07/20/17 07/20/17 07/20/17 Range/Units 10:37 10:35 10:18 WBC (4.8-10.8) K/uL RBC (3.80-5.20) Mil/uL Hgb (11.0-16.0) g/dL Hct (34.0-47.0) % MCV (81.0-99.0) fL MCH (27.0-31.0) pg MCHC (33.0-37.0) g/dL RDW (11.5-14.5) % Plt Count (130-400) K/uL MPV (7.2-11.7) fL Neut % (Auto) (50.0-75.0) % Lymph % (Auto) (20.0-40.0) % Wake % (Auto) (0.0-10.0) % Eos % (Auto) (0.0-4.0) % Baso % (Auto) (0.0-2.0) % Neut # (Auto) (1.8-7.0) K/uL Lymph # (Auto) (1.0-4.3) K/uL Wake # (Auto) (0.0-0.8) K/uL Eos # (Auto) (0.0-0.7) K/uL Baso # (Auto) (0.0-0.2) K/uL Neutrophils % (Manual) (50-75) % Band Neutrophils % (0-2) % Lymphocytes % (Manual) (20-40) % Monocytes % (Manual) (0-10) % Nucleated RBC % (0-0) % Platelet Estimate (NORMAL) Large Platelets Polychromasia Hypochromasia (manual) Poikilocytosis (manual Anisocytosis (manual) Microcytosis (manual) Macrocytosis (manual) Tear Drop Cells Ovalocytes Padmini Cells Schistocytes PT (9.7-12.2) SECONDS INR APTT (21-34) SECONDS Puncture Site Lb pCO2 33 L (35-45) mm/Hg pO2 417 H (80-100) mm/Hg HCO3 22.7 (21-28) mmol/L ABG pH 7.41 (7.35-7.45) ABG Total CO2 21.9 L (22-28) mmol/L ABG O2 Saturation 99.6 H (95-98) % ABG Base Excess -2.9 L (-2.0-3.0) mmol/L ABG Hemoglobin (11.7-17.4) g/dL ABG Carboxyhemoglobin (0.5-1.5) % POC ABG HHb (Measured) (0.0-5.0) % ABG Methemoglobin (0.0-3.0) % Issa Test Na ABG Potassium 2.2 L* (3.6-5.2) mmol/L A-a O2 Difference 255.0 mm/Hg Respiratory Index 0.6 Hgb O2 Saturation (95.0-98.0) % Sodium 132.0 (132-148) mmol/l Chloride 103.0 (98-107) mmol/L Glucose 131 H (65-105) mg/dl Lactate 0.8 (0.7-2.1) mmol/L Vent Mode Mechanical Rate 12 FiO2 100.0 % Tidal Volume 450 PEEP 5 Crit Value Called To Dr morin Crit Value Called By Alexandr may distance education coordinator Crit Value Read Back Y Blood Gas Notified Time 1050 Potassium (3.6-5.2) mmol/L Carbon Dioxide (22-30) mmol/L Anion Gap (10-20) BUN (7-17) mg/dL Creatinine (0.7-1.2) mg/dL Est GFR ( Amer) Est GFR (Non-Af Amer) POC Glucose (mg/dL) (65-110) mg/dL Random Glucose (65-105) mg/dL Lactic Acid (0.7-2.1) mmol/L Calcium (8.6-10.4) mg/dl Phosphorus (2.5-4.5) mg/dL Magnesium (1.6-2.3) mg/dL Total Bilirubin (0.2-1.3) mg/dL AST (14-36) U/L ALT (9-52) U/L Alkaline Phosphatase (38-126) U/L Troponin I (0.00-0.120) ng/mL Total Protein (6.3-8.3) g/dL Albumin (3.5-5.0) g/dL Globulin (2.2-3.9) gm/dL Albumin/Globulin Ratio (1.0-2.1) Arterial Blood Potassium 2.2 L* (3.6-5.2) mmol/L Urine Color Yellow (YELLOW) Urine Clarity Hazy (Clear) Urine pH 5.0 (5.0-8.0) Ur Specific Grant 1.015 (1.003-1.030) Urine Protein 2+ H (NEGATIVE) mg/dL Urine Glucose (UA) Normal (Normal) mg/dL Urine Ketones Negative (NEGATIVE) mg/dL Urine Blood Negative (NEGATIVE) Urine Nitrate Negative (NEGATIVE) Urine Bilirubin Negative (NEGATIVE) Urine Urobilinogen Normal (0.2-1.0) mg/dL Ur Leukocyte Esterase 3+ H (Negative) Jose Luis/uL Urine WBC (Auto) 299 H (0-5) /hpf Ur Squamous Epith Cells 1 (0-5) /hpf Urine Yeast (Budding) Many H (NEGATIVE) /hpf Random Vancomycin ug/mL Influenza Typ A,B (EIA) Negative for flu a/b (NEGATIVE) Laboratory Results - last 24 hr 07/20/17 07/20/17 07/20/17 10:18 10:35 10:37 WBC RBC Hgb Hct MCV MCH MCHC RDW Plt Count MPV Neut % (Auto) Lymph % (Auto) Wake % (Auto) Eos % (Auto) Baso % (Auto) Neut # (Auto) Lymph # (Auto) Wake # (Auto) Eos # (Auto) Baso # (Auto) Neutrophils % (Manual) Band Neutrophils % Lymphocytes % (Manual) Monocytes % (Manual) Nucleated RBC % Platelet Estimate Large Platelets Polychromasia Hypochromasia (manual) Poikilocytosis (manual Anisocytosis (manual) Microcytosis (manual) Macrocytosis (manual) Tear Drop Cells Ovalocytes Padmini Cells Schistocytes PT INR APTT Puncture Site Lb pCO2 33 L pO2 417 H HCO3 22.7 ABG pH 7.41 ABG Total CO2 21.9 L ABG O2 Saturation 99.6 H ABG Base Excess -2.9 L ABG Hemoglobin ABG Carboxyhemoglobin POC ABG HHb (Measured) ABG Methemoglobin Issa Test Na ABG Potassium 2.2 L* A-a O2 Difference 255.0 Respiratory Index 0.6 Hgb O2 Saturation Sodium 132.0 Chloride 103.0 Glucose 131 H Lactate 0.8 Vent Mode Mechanical Rate 12 FiO2 100.0 Tidal Volume 450 PEEP 5 Crit Value Called To Dr morin Crit Value Called By Alexandr may distance education coordinator Crit Value Read Back Y Blood Gas Notified Time 1050 Potassium Carbon Dioxide Anion Gap BUN Creatinine Est GFR ( Amer) Est GFR (Non-Af Amer) POC Glucose (mg/dL) Random Glucose Lactic Acid Calcium Phosphorus Magnesium Total Bilirubin AST ALT Alkaline Phosphatase Troponin I Total Protein Albumin Globulin Albumin/Globulin Ratio Arterial Blood Potassium 2.2 L* Urine Color Yellow Urine Clarity Hazy Urine pH 5.0 Ur Specific Grant 1.015 Urine Protein 2+ H Urine Glucose (UA) Normal Urine Ketones Negative Urine Blood Negative Urine Nitrate Negative Urine Bilirubin Negative Urine Urobilinogen Normal Ur Leukocyte Esterase 3+ H Urine WBC (Auto) 299 H Ur Squamous Epith Cells 1 Urine Yeast (Budding) Many H Random Vancomycin Influenza Typ A,B (EIA) Negative for flu a/b 07/20/17 07/20/17 07/20/17 10:42 10:42 10:42 WBC 16.5 H RBC 3.06 L Hgb 9.8 L Hct 29.3 L MCV 95.8 MCH 32.1 H MCHC 33.5 RDW 19.0 H Plt Count 183 MPV 7.6 Neut % (Auto) 88.0 H Lymph % (Auto) 6.2 L Wake % (Auto) 5.4 Eos % (Auto) 0.2 Baso % (Auto) 0.2 Neut # (Auto) 14.5 H Lymph # (Auto) 1.0 Wake # (Auto) 0.9 H Eos # (Auto) 0.0 Baso # (Auto) 0.0 Neutrophils % (Manual) 92 H Band Neutrophils % Lymphocytes % (Manual) 2 L Monocytes % (Manual) 6 Nucleated RBC % 1 H Platelet Estimate Normal Large Platelets Polychromasia Slight Hypochromasia (manual) Slight Poikilocytosis (manual Anisocytosis (manual) Slight Microcytosis (manual) Macrocytosis (manual) Tear Drop Cells Ovalocytes [place] Cells Schistocytes PT 10.8 INR 1.0 APTT 25 Puncture Site pCO2 pO2 HCO3 ABG pH ABG Total CO2 ABG O2 Saturation ABG Base Excess ABG Hemoglobin ABG Carboxyhemoglobin POC ABG HHb (Measured) ABG Methemoglobin Issa Test ABG Potassium A-a O2 Difference Respiratory Index Hgb O2 Saturation Sodium 131 L Chloride 97 L Glucose Lactate Vent Mode Mechanical Rate FiO2 Tidal Volume PEEP Crit Value Called To Crit Value Called By Crit Value Read Back Blood Gas Notified Time Potassium 2.6 L Carbon Dioxide 24 Anion Gap 12 BUN 14 Creatinine 0.5 L Est GFR ( Amer) > 60 Est GFR (Non-Af Amer) > 60 POC Glucose (mg/dL) Random Glucose 125 H Lactic Acid Calcium 7.4 L Phosphorus 2.5 Magnesium 1.4 L Total Bilirubin 0.2 AST 19 ALT 48 Alkaline Phosphatase 64 Troponin I 0.2240 H* Total Protein 5.0 L Albumin 2.5 L Globulin 2.5 Albumin/Globulin Ratio 1.0 Arterial Blood Potassium Urine Color Urine Clarity Urine pH Ur Specific Grant Urine Protein Urine Glucose (UA) Urine Ketones Urine Blood Urine Nitrate Urine Bilirubin Urine Urobilinogen Ur Leukocyte Esterase Urine WBC (Auto) Ur Squamous Epith Cells Urine Yeast (Budding) Random Vancomycin Influenza Typ A,B (EIA) 07/20/17 07/20/17 07/20/17 10:42 17:41 17:41 WBC RBC Hgb Hct MCV MCH MCHC RDW Plt Count MPV Neut % (Auto) Lymph % (Auto) Wake % (Auto) Eos % (Auto) Baso % (Auto) Neut # (Auto) Lymph # (Auto) Wake # (Auto) Eos # (Auto) Baso # (Auto) Neutrophils % (Manual) Band Neutrophils % Lymphocytes % (Manual) Monocytes % (Manual) Nucleated RBC % Platelet Estimate Large Platelets Polychromasia Hypochromasia (manual) Poikilocytosis (manual Anisocytosis (manual) Microcytosis (manual) Macrocytosis (manual) Tear Drop Cells Ovalocytes Padmini Cells Schistocytes PT INR APTT Puncture Site pCO2 pO2 HCO3 ABG pH ABG Total CO2 ABG O2 Saturation ABG Base Excess ABG Hemoglobin ABG Carboxyhemoglobin POC ABG HHb (Measured) ABG Methemoglobin Issa Test ABG Potassium A-a O2 Difference Respiratory Index Hgb O2 Saturation Sodium Chloride Glucose Lactate Vent Mode Mechanical Rate FiO2 Tidal Volume PEEP Crit Value Called To Crit Value Called By Crit Value Read Back Blood Gas Notified Time Potassium Carbon Dioxide Anion Gap BUN Creatinine Est GFR ( Amer) Est GFR (Non-Af Amer) POC Glucose (mg/dL) Random Glucose Lactic Acid 1.5 Calcium Phosphorus Magnesium Total Bilirubin AST ALT Alkaline Phosphatase Troponin I 0.1300 H* Total Protein Albumin Globulin Albumin/Globulin Ratio Arterial Blood Potassium Urine Color Urine Clarity Urine pH Ur Specific [place] Urine Protein Urine Glucose (UA) Urine Ketones Urine Blood Urine Nitrate Urine Bilirubin Urine Urobilinogen Ur Leukocyte Esterase Urine WBC (Auto) Ur Squamous Epith Cells Urine Yeast (Budding) Random Vancomycin 23.41 Influenza Typ A,B (EIA) 07/20/17 07/20/17 07/20/17 17:41 18:33 22:38 WBC RBC Hgb Hct MCV MCH MCHC RDW Plt Count MPV Neut % (Auto) Lymph % (Auto) Wake % (Auto) Eos % (Auto) Baso % (Auto) Neut # (Auto) Lymph # (Auto) Wake # (Auto) Eos # (Auto) Baso # (Auto) Neutrophils % (Manual) Band Neutrophils % Lymphocytes % (Manual) Monocytes % (Manual) Nucleated RBC % Platelet Estimate Large Platelets Polychromasia Hypochromasia (manual) Poikilocytosis (manual Anisocytosis (manual) Microcytosis (manual) Macrocytosis (manual) Tear Drop Cells Ovalocytes [place] Cells Schistocytes PT INR APTT 22 Puncture Site pCO2 pO2 HCO3 ABG pH ABG Total CO2 ABG O2 Saturation ABG Base Excess ABG Hemoglobin ABG Carboxyhemoglobin POC ABG HHb (Measured) ABG Methemoglobin Issa Test ABG Potassium A-a O2 Difference Respiratory Index Hgb O2 Saturation Sodium Chloride Glucose Lactate Vent Mode Mechanical Rate FiO2 Tidal Volume PEEP Crit Value Called To Crit Value Called By Crit Value Read Back Blood Gas Notified Time Potassium Carbon Dioxide Anion Gap BUN Creatinine Est GFR ( Amer) Est GFR (Non-Af Amer) POC Glucose (mg/dL) 301 H Random Glucose Lactic Acid 1.2 Calcium Phosphorus Magnesium Total Bilirubin AST ALT Alkaline Phosphatase Troponin I Total Protein Albumin Globulin Albumin/Globulin Ratio Arterial Blood Potassium Urine Color Urine Clarity Urine pH Ur Specific [place] Urine Protein Urine Glucose (UA) Urine Ketones Urine Blood Urine Nitrate Urine Bilirubin Urine Urobilinogen Ur Leukocyte Esterase Urine WBC (Auto) Ur Squamous Epith Cells Urine Yeast (Budding) Random Vancomycin Influenza Typ A,B (EIA) 07/20/17 07/21/17 07/21/17 22:38 00:16 05:00 WBC RBC Hgb Hct MCV MCH MCHC RDW Plt Count MPV Neut % (Auto) Lymph % (Auto) Wake % (Auto) Eos % (Auto) Baso % (Auto) Neut # (Auto) Lymph # (Auto) [place] # (Auto) Eos # (Auto) Baso # (Auto) Neutrophils % (Manual) Band Neutrophils % Lymphocytes % (Manual) Monocytes % (Manual) Nucleated RBC % Platelet Estimate Large Platelets Polychromasia Hypochromasia (manual) Poikilocytosis (manual Anisocytosis (manual) Microcytosis (manual) Macrocytosis (manual) Tear Drop Cells Ovalocytes [place] Cells Schistocytes PT INR APTT Puncture Site pCO2 pO2 HCO3 ABG pH ABG Total CO2 ABG O2 Saturation ABG Base Excess ABG Hemoglobin ABG Carboxyhemoglobin POC ABG HHb (Measured) ABG Methemoglobin Issa Test ABG Potassium A-a O2 Difference Respiratory Index Hgb O2 Saturation Sodium Chloride Glucose Lactate Vent Mode Mechanical Rate FiO2 Tidal Volume PEEP Crit Value Called To Crit Value Called By Crit Value Read Back Blood Gas Notified Time Potassium Carbon Dioxide Anion Gap BUN Creatinine Est GFR ( Amer) Est GFR (Non-Af Amer) POC Glucose (mg/dL) 288 H 249 H Random Glucose Lactic Acid Calcium Phosphorus Magnesium Total Bilirubin AST ALT Alkaline Phosphatase Troponin I 0.0890 Total Protein Albumin Globulin Albumin/Globulin Ratio Arterial Blood Potassium Urine Color Urine Clarity Urine pH Ur Specific [place] Urine Protein Urine Glucose (UA) Urine Ketones Urine Blood Urine Nitrate Urine Bilirubin Urine Urobilinogen Ur Leukocyte Esterase Urine WBC (Auto) Ur Squamous Epith Cells Urine Yeast (Budding) Random Vancomycin Influenza Typ A,B (EIA) 07/21/17 07/21/17 07/21/17 05:18 06:07 06:08 WBC 16.1 H RBC 2.70 L Hgb 8.8 L Hct 26.0 L MCV 96.0 MCH 32.5 H MCHC 33.8 RDW 19.6 H Plt Count 206 MPV 8.5 Neut % (Auto) 94.8 H Lymph % (Auto) 2.0 L Wake % (Auto) 3.0 Eos % (Auto) 0.0 Baso % (Auto) 0.2 Neut # (Auto) 15.3 H Lymph # (Auto) 0.3 L [place] # (Auto) 0.5 Eos # (Auto) 0.0 Baso # (Auto) 0.0 Neutrophils % (Manual) 91 H Band Neutrophils % 3 H Lymphocytes % (Manual) 3 L Monocytes % (Manual) 3 Nucleated RBC % Platelet Estimate Normal Large Platelets Present Polychromasia Hypochromasia (manual) Poikilocytosis (manual Slight Anisocytosis (manual) Moderate Microcytosis (manual) Slight Macrocytosis (manual) Slight Tear Drop Cells Slight Ovalocytes Slight Padmini Cells Slight Schistocytes Slight PT INR APTT Puncture Site Rr pCO2 21 L pO2 210 H HCO3 18.1 L ABG pH 7.43 ABG Total CO2 14.5 L ABG O2 Saturation 99.2 H ABG Base Excess -8.8 L ABG Hemoglobin 10.0 L ABG Carboxyhemoglobin 1.4 POC ABG HHb (Measured) 0.8 ABG Methemoglobin 1.0 Issa Test Pos ABG Potassium A-a O2 Difference 120.0 Respiratory Index 0.6 Hgb O2 Saturation 96.9 Sodium 136 Chloride 109 H Glucose Lactate Vent Mode Prvc Mechanical Rate 20 FiO2 50.0 Tidal Volume 450 PEEP 5 Crit Value Called To Crit Value Called By Crit Value Read Back Blood Gas Notified Time Potassium 4.5 Carbon Dioxide 17 L Anion Gap 15 BUN 14 Creatinine 0.4 L Est GFR ( Amer) > 60 Est GFR (Non-Af Amer) > 60 POC Glucose (mg/dL) Random Glucose 223 H Lactic Acid Calcium 7.1 L Phosphorus 2.7 Magnesium 2.0 Total Bilirubin 0.3 AST 14 D ALT 45 Alkaline Phosphatase 63 Troponin I Total Protein 5.1 L Albumin 2.4 L Globulin 2.7 Albumin/Globulin Ratio 0.9 L Arterial Blood Potassium Urine Color Urine Clarity Urine pH Ur Specific [place] Urine Protein Urine Glucose (UA) Urine Ketones Urine Blood Urine Nitrate Urine Bilirubin Urine Urobilinogen Ur Leukocyte Esterase Urine WBC (Auto) Ur Squamous Epith Cells Urine Yeast (Budding) Random Vancomycin Influenza Typ A,B (EIA) EKG/Cardiology Studies: Cardiology / EKG Studies 07/20/17 09:48 EKG [ELECTROCARDIOGRAM] Stat Comment: Mode Of Transportation: PORTABLE Reason For Exam: Unresponsive Isolation: Contact 07/20/17 11:12 ELECTROCARDIOGRAM Stat Comment: Mode Of Transportation: Reason For Exam: Sepsis Patient Isolation: Contact Fingerstick Blood Sugar Results: 301 Critical Care Progress Note - Ventilator Checklist Daily Sedation Vacation: Yes Daily Assessment of Readiness to Wean: Yes Daily Spontaneous Breathing Trial: Yes PUD Prophalyxis: Yes DVT Prophylaxis: Yes Oral Care with Chlorhexidine Gluconate {CHG}: Yes Assessment/Plan - Assessment and Plan (Free Text) Assessment: Septic shock: exact etiology unknown: leukocytosis, start emprical abx vanco/ aztreonam/flagyl, lactic normalized -Shock: place TLC and infuse norepi to keep MAP >65 -h/o asthma:continue hydrocortisone and duonebs -at risk of CAD: continue asa, statin, av antonino sena contraindicated 2nd hypotension -ng tube feeds -AMS: peniding CT head -DM continue, Accuchecks q6H, ISS medium dose -dvt ppx heparin sq -pud ppx pepcid Goals of care: sons reqeusted DNR. -PRognosis guarded as multiple diagnostic tests pending. cc time 35 minutes - Date & Time Date: 07/21/17 Time: 09:35
[2017-07-21] MEDS ORDERED: Sodium Chloride 0.9% 1,000 ML IV ONE (09:37)
[2017-07-21] MEDS: Albumin Human 25% (12.5 gm/50 ml) IV SCH ×2 (09:58→10:29)
--- NOTE | 2017-07-21 10:30 | CT ---
PROCEDURE: CT HEAD WITHOUT CONTRAST. HISTORY: r/o ICH/stroke COMPARISON: None available. TECHNIQUE: Axial computed tomography images were obtained through the head/brain without intravenous contrast. Radiation dose: Total exam DLP = mGy-cm. This CT exam was performed using one or more of the following dose reduction techniques: Automated exposure control, adjustment of the mA and/or kV according to patient size, and/or use of iterative reconstruction technique. FINDINGS: HEMORRHAGE: Severe subarachnoid hemorrhage, predominantly right frontotemporal and bilateral parafalcine cortical sulci. BRAIN: Low-lying cerebellar tonsils versus some degree of tonsillar herniation. No mild atrophy. Chronic periventricular white matter ischemic changes Chronic microvascular ischemic changes. VENTRICLES: Extension of intraventricular hemorrhage into the bilateral lateral ventricles, left much more than right, as well as into the 3rd and 4th ventricles. Interval development of hydrocephalus. CALVARIUM: Unremarkable. PARANASAL SINUSES: Bilateral ethmoid air cell and maxillary/sphenoid sinus opacification. MASTOID AIR CELLS: Left mastoid air cell opacification. OTHER FINDINGS: Partially imaged nasogastric and endotracheal tubes. IMPRESSION: New marked subarachnoid hemorrhage with left more than right intraventricular extension as described above. Findings conveyed to Dr. Barron by Dr. Garcia at 10:23 a.m. on 07/21/2017.
[2017-07-21] MEDS: Multiple Vitamins Oral Solution GT SCH (11:18)
[2017-07-21] MEDS: Potassium Chloride 10 mEq ER Tab PO SCH (11:18)
[2017-07-21] MEDS: Sodium Chloride 0.9% 1,000 ML IV SCH (14:13)
--- NOTE | 2017-07-21 18:09 | CP.PCM.PN ---
Subjective - Date & Time of Evaluation Date of Evaluation: 07/21/17 Time of Evaluation: 18:08 Objective - Vital Signs/Intake and Output Vital Signs (last 24 hours): Temp Pulse Resp BP Pulse Ox 97.2 F L 59 L 20 128/65 100 07/21/17 16:00 07/21/17 17:30 07/21/17 17:30 07/21/17 17:16 07/21/17 17:30 Intake and Output: 07/21/17 07/21/17 06:59 18:59 Intake Total 2029.7 2350.0 Output Total 614 265 Balance 1415.7 2085.0 - Medications Medications: Current Medications Acetaminophen (Tylenol 325 Mg Supp) [address] ONCE PRN PRN Reason: Fever >100.4 F Al Hydrox/Mg Hydrox/Simethicone (Maalox Plus 30 Ml) 30 ml PO Q4 PRN Albuterol/Ipratropium (Duoneb 3 Mg/0.5 Mg (3 Ml) Ud) 3 ml INH RQ6 [facility] Last Admin: 07/21/17 13:26 Dose: 3 ml Ascorbic Acid (Vitamin C 500 Mg Tab) 500 mg NG DAILY [facility] Last Admin: 07/21/17 11:18 Dose: 500 mg Budesonide (Pulmicort Respules) 0.5 mg IH RQ12 [facility] Last Admin: 07/21/17 08:41 Dose: 0.5 mg Docusate Sodium (Colace) 100 mg PO DAILY [facility] Last Admin: 07/21/17 09:37 Dose: Not Given Famotidine (Pepcid) 20 mg PO DAILY [facility] Last Admin: 07/21/17 09:36 Dose: 20 mg Folic Acid (Folic Acid) 1 mg PO DAILY [facility] Last Admin: 07/21/17 09:36 Dose: 1 mg Hydrocortisone Sodium Succinate (Solu-Cortef) 100 mg IV Q8H [facility] Last Admin: 07/21/17 14:12 Dose: 100 mg Norepinephrine Bitartrate 4 mg (/ Sodium Chloride) 254 mls @ 19.05 mls/hr IV .[id number] PRN; Protocol; 5 MCG/MIN PRN Reason: TITRATE PER MD ORDER Last Titration: 07/21/17 15:18 Dose: 2 mcg/min, 7.62 mls/hr Aztreonam 2 gm/ Sodium (Chloride) 100 mls @ 200 mls/hr IVPB Q8H [facility] Last Admin: 07/21/17 16:12 Dose: 200 mls/hr Metronidazole (Flagyl) 500 mg in 100 mls @ 100 mls/hr IVPB Q8 [facility] Last Admin: 07/21/17 13:18 Dose: 100 mls/hr Linezolid (Zyvox 600mg/300ml D5w) 600 mg in 300 mls @ 200 mls/hr IVPB Q12 [facility] Last Admin: 07/21/17 09:33 Dose: 200 mls/hr Fluconazole (Diflucan Iv 200 Mg/100 Ml Ns) 100 mls @ 100 mls/hr IVPB DAILY [facility] Last Admin: 07/21/17 09:32 Dose: 100 mls/hr Sodium Chloride (Sodium Chloride 0.9%) 1,000 mls @ 75 mls/hr IV .[id number] [facility] Last Admin: 07/21/17 14:13 Dose: 75 mls/hr Insulin Aspart (Novolog) 0 unit SC Q6H [facility] PRN Reason: Protocol Last Admin: 07/21/17 17:53 Dose: 2 unit Montelukast Sodium (Singulair) 10 mg PO HS [facility] Last Admin: 07/20/17 21:50 Dose: 10 mg Multivitamins/Vitamin C (Multi-Delyn Liquid) 5 ml GT DAILY [facility] Last Admin: 07/21/17 11:18 Dose: 5 ml Potassium Chloride (Klor-Con 10) 10 meq PO DAILY [facility] Last Admin: 07/21/17 11:18 Dose: 10 meq Rosuvastatin Calcium (Crestor) 10 mg PO HS [facility] Last Admin: 07/20/17 22:03 Dose: 10 mg Zinc Sulfate (Zinc Sulfate 220 Mg Cap) 220 mg PO DAILY [facility] Last Admin: 07/21/17 11:18 Dose: 220 mg - Labs Labs: 07/21/17 06:08 07/21/17 06:07 PT 10.8 SECONDS (9.7-12.2) 07/20/17 10:42 INR 1.0 07/20/17 10:42 APTT 22 SECONDS (21-34) 07/20/17 17:41
--- NOTE | 2017-07-21 19:42 | CP.PCM.PN ---
Subjective - Date & Time of Evaluation Date of Evaluation: 07/21/17 Time of Evaluation: 11:20 - Subjective Subjective: clinically same Objective - Vital Signs/Intake and Output Vital Signs (last 24 hours): Temp Pulse Resp BP Pulse Ox 97.2 F L 64 20 105/62 100 07/21/17 16:00 07/21/17 19:00 07/21/17 19:00 07/21/17 18:48 07/21/17 19:00 Intake and Output: 07/21/17 07/22/17 18:59 06:59 Intake Total 2768.5 95 Output Total 360 0 Balance 2408.5 95 - Medications Medications: Current Medications Acetaminophen (Tylenol 325 Mg Supp) 975 mg [place] ONCE PRN PRN Reason: Fever >100.4 F Al Hydrox/Mg Hydrox/Simethicone (Maalox Plus 30 Ml) 30 ml PO Q4 PRN Albuterol/Ipratropium (Duoneb 3 Mg/0.5 Mg (3 Ml) Ud) 3 ml INH RQ6 [facility] Last Admin: 07/21/17 13:26 Dose: 3 ml Ascorbic Acid (Vitamin C 500 Mg Tab) 500 mg NG DAILY [facility] Last Admin: 07/21/17 11:18 Dose: 500 mg Budesonide (Pulmicort Respules) 0.5 mg IH RQ12 [facility] Last Admin: 07/21/17 08:41 Dose: 0.5 mg Docusate Sodium (Colace) 100 mg PO DAILY [facility] Last Admin: 07/21/17 09:37 Dose: Not Given Famotidine (Pepcid) 20 mg PO DAILY [facility] Last Admin: 07/21/17 09:36 Dose: 20 mg Folic Acid (Folic Acid) 1 mg PO DAILY [facility] Last Admin: 07/21/17 09:36 Dose: 1 mg Hydrocortisone Sodium Succinate (Solu-Cortef) 100 mg IV Q8H [facility] Last Admin: 07/21/17 14:12 Dose: 100 mg Norepinephrine Bitartrate 4 mg (/ Sodium Chloride) 254 mls @ 19.05 mls/hr IV .[id number] PRN; Protocol; 5 MCG/MIN PRN Reason: TITRATE PER MD ORDER Last Titration: 07/21/17 18:30 Dose: 0 mcg/min, 0 mls/hr Aztreonam 2 gm/ Sodium (Chloride) 100 mls @ 200 mls/hr IVPB Q8H [facility] Last Admin: 07/21/17 16:12 Dose: 200 mls/hr Metronidazole (Flagyl) 500 mg in 100 mls @ 100 mls/hr IVPB Q8 [facility] Last Admin: 07/21/17 13:18 Dose: 100 mls/hr Linezolid (Zyvox 600mg/300ml D5w) 600 mg in 300 mls @ 200 mls/hr IVPB Q12 [facility] Last Admin: 07/21/17 09:33 Dose: 200 mls/hr Fluconazole (Diflucan Iv 200 Mg/100 Ml Ns) 100 mls @ 100 mls/hr IVPB DAILY [facility] Last Admin: 07/21/17 09:32 Dose: 100 mls/hr Sodium Chloride (Sodium Chloride 0.9%) 1,000 mls @ 75 mls/hr IV .[id number] [facility] Last Admin: 07/21/17 14:13 Dose: 75 mls/hr Insulin Aspart (Novolog) 0 unit SC Q6H [facility] PRN Reason: Protocol Last Admin: 07/21/17 17:53 Dose: 2 unit Montelukast Sodium (Singulair) 10 mg PO HS [facility] Last Admin: 07/20/17 21:50 Dose: 10 mg Multivitamins/Vitamin C (Multi-Delyn Liquid) 5 ml GT DAILY [facility] Last Admin: 07/21/17 11:18 Dose: 5 ml Potassium Chloride (Klor-Con 10) 10 meq PO DAILY [facility] Last Admin: 07/21/17 11:18 Dose: 10 meq Rosuvastatin Calcium (Crestor) 10 mg PO HS [facility] Last Admin: 07/20/17 22:03 Dose: 10 mg Zinc Sulfate (Zinc Sulfate 220 Mg Cap) 220 mg PO DAILY [facility] Last Admin: 07/21/17 11:18 Dose: 220 mg - Labs Labs: 07/21/17 06:08 07/21/17 06:07 PT 10.8 SECONDS (9.7-12.2) 07/20/17 10:42 INR 1.0 07/20/17 10:42 APTT 22 SECONDS (21-34) 07/20/17 17:41 Assessment and Plan (1) Hypokalemia Status: Acute (2) Respiratory failure Status: Acute (3) Septic shock Status: Acute (4) Acute urinary tract infection Status: Acute (5) Allergic urticaria Status: Acute (6) Asthma Status: Acute (7) Asthma exacerbation Status: Acute (8) Bronchitis Status: Acute (9) COPD exacerbation Status: Acute (10) Constipation Status: Acute (11) Dehydration symptoms Status: Acute (12) Dyspnea Status: Acute (13) Dyspnea Status: Acute (14) Elevated troponin Status: Acute (15) Fever Status: Acute (16) Influenza Status: Acute (17) Pneumonia Status: Acute (18) Prophylactic measure Status: Acute (19) Respiratory distress Status: Acute (20) Sepsis Status: Acute (21) UTI (urinary tract infection) Status: Acute (22) Weakness Status: Acute (23) GERD (gastroesophageal reflux disease) Status: Chronic (24) HTN (hypertension) Status: Chronic (25) Hyperlipidemia Status: Chronic (26) Hypertension Status: Chronic - Assessment and Plan (Free Text) Plan: Follow-up ID consult with Dr. 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 Sanon Continue tube feeding Continue HD on continue IV fluconazole continue IV metronidazole continue IV fluid continue supplementing electrolytes continue DuoNeb continue Zyvox gentamicin discontinued
[2017-07-22] MEDS: (Novolog) Insulin Aspart, Recombinant 100 u/ml 10 ml vial SC SCH ×4 (00:03→18:44)
[2017-07-22] MEDS: Aztreonam 2 GM in Sodium Chloride 0.9% 100 ML IVPB SCH ×3 (00:05→17:58)
[2017-07-22] MEDS: Sodium Chloride 0.9% 1,000 ML IV SCH ×2 (00:35→13:38)
[2017-07-22] MEDS: Albuterol-Ipratrop 3 mg / 0.5 (3 ml) UD INH SCH ×4 (01:17→19:45)
[2017-07-22] MEDS: metroNIDAZOLE IV 500 mg/100 ml 500 MG/100 ML BAG IVPB SCH ×3 (05:08→21:56)
[2017-07-22 05:51] LABS: ABG ALLEN TEST POS; ARTERIAL BLOOD GAS HCO3 20.5 mmol/L (21-28); ARTERIAL BLOOD GAS O2 SAT 99.4 % (95-98); ARTERIAL BLOOD GAS PCO2 17 mm/Hg (35-45); ARTERIAL BLOOD GAS PH 7.53 (7.35-7.45); ARTERIAL BLOOD GAS PO2 170 mm/Hg (80-100); ARTERIAL BLOOD GAS TCO2 14.7 mmol/L (22-28)
[2017-07-22 06:19] LABS: BASO % 0.1 % (0.0-2.0); LYMPH # 0.2 K/uL (1.0-4.3); LYMPH % 2.7 % (20.0-40.0); MEAN CELL VOLUME 96.1 fL (81.0-99.0); MEAN CORPUSCULAR HGB CONC 34.4 g/dL (33.0-37.0); MEAN PLATELET VOLUME 8.9 fL (7.2-11.7); MONO # 0.3 K/uL (0.0-0.8); MONO % 3.7 % (0.0-10.0); NEUT # 8.5 K/uL (1.8-7.0); NEUT % 93.5 % (50.0-75.0); NRBC % 0.2 % (0.0-2.0); PLATELET COUNT 181 K/uL (130-400); RBC 1.91 Mil/uL (3.80-5.20); RED CELL DISTRIBUTION WIDTH 19.8 % (11.5-14.5); WHITE BLOOD COUNT 9.1 K/uL (4.8-10.8)
[2017-07-22 06:27] LABS: HEMOGLOBIN 6.3 g/dL (11.0-16.0)
[2017-07-22 06:39] LABS: ALB/GLOB RATIO 0.8 (1.0-2.1); ALT/SGPT 45 U/L (9-52); AST/SGOT 15 U/L (14-36); BLOOD UREA NITROGEN 15 mg/dL (7-17); CALCIUM 7.5 mg/dl (8.6-10.4); GFR AFRICAN-AMERICAN > 60; GFR NON-AFRICAN AMERICAN > 60; MAGNESIUM 1.9 mg/dL (1.6-2.3)
[2017-07-22] MEDS: Budesonide 0.5 mg/2 ml Inhal Susp UD IH SCH ×2 (07:20→19:44)
[2017-07-22] MEDS: Potassium Chloride 20 mEq/15 ml LIQ UD PO SCH ×4 (07:42→18:00)
--- NOTE | 2017-07-22 09:32 | RAD ---
HISTORY: et tube COMPARISON: Chest radiograph dated 07/21/2017. FINDINGS: LUNGS: Pulmonary vascular congestion. Bibasilar atelectasis. PLEURA: Small bilateral pleural effusions. No pneumothorax apparent. CARDIOVASCULAR: Normal. OSSEOUS STRUCTURES: No significant abnormalities. VISUALIZED UPPER ABDOMEN: Normal. OTHER FINDINGS: Large hiatal hernia. Endotracheal, enteric tubes, unchanged. Right internal jugular access central venous catheter, unchanged. IMPRESSION: Stable lines and tubes. Grossly stable pulmonary vascular congestion and small bilateral pleural effusions.
[2017-07-22] MEDS: Fluconazole IV 200mg/100 ml NS 100 ML IVPB SCH (09:51)
[2017-07-22] MEDS: Multiple Vitamins Oral Solution GT SCH (10:01)
[2017-07-22] MEDS: Potassium Chloride 10 mEq ER Tab PO SCH (10:01)
[2017-07-22 10:04] LABS: BANDS 3 % (0-2); TOTAL CELLS COUNTED 100
[2017-07-22 10:05] LABS: ANISOCYTOSIS MODERATE; LYMPHOCYTE 3 % (20-40); MICROCYTOSIS SLIGHT; MONOCYTE 4 % (0-10); NEUTROPHIL 90 % (50-75); PLATELET ESTIMATE NORMAL (NORMAL); POIKILOCYTOSIS SLIGHT
[2017-07-22 10:06] LABS: BURR CELLS SLIGHT; LARGE PLATELETS PRESENT; OVALOCYTES SLIGHT; POLYCHROMIC SLIGHT; SCHISTOCYTES SLIGHT; SPHEROCYTES SLIGHT
[2017-07-22] MEDS: Linezolid 600 mg in D5W 300 ml 600 MG/300 ML BAG IVPB SCH (10:49)
--- NOTE | 2017-07-22 12:43 | CP.PCM.PN ---
Subjective - Date & Time of Evaluation Date of Evaluation: 07/22/17 Time of Evaluation: 12:43 Objective - Vital Signs/Intake and Output Vital Signs (last 24 hours): Temp Pulse Resp BP Pulse Ox 94.0 F L 81 20 127/87 100 07/22/17 12:05 07/22/17 12:05 07/22/17 12:05 07/22/17 12:05 07/22/17 09:16 Intake and Output: 07/22/17 07/22/17 06:59 18:59 Intake Total 1541 287.3 Output Total 0 0 Balance 1541 287.3 - Medications Medications: Current Medications Acetaminophen (Tylenol 325 Mg Supp) 975 mg [place] ONCE PRN PRN Reason: Fever >100.4 F Al Hydrox/Mg Hydrox/Simethicone (Maalox Plus 30 Ml) 30 ml PO Q4 PRN Albuterol/Ipratropium (Duoneb 3 Mg/0.5 Mg (3 Ml) Ud) 3 ml INH RQ6 [facility] Last Admin: 07/22/17 07:19 Dose: 3 ml Ascorbic Acid (Vitamin C 500 Mg Tab) 500 mg NG DAILY [facility] Last Admin: 07/22/17 10:02 Dose: 500 mg Budesonide (Pulmicort Respules) 0.5 mg IH RQ12 [facility] Last Admin: 07/22/17 07:20 Dose: Not Given Docusate Sodium (Colace) 100 mg PO DAILY [facility] Last Admin: 07/22/17 09:50 Dose: Not Given Famotidine (Pepcid) 20 mg PO DAILY [facility] Last Admin: 07/22/17 10:01 Dose: 20 mg Folic Acid (Folic Acid) 1 mg PO DAILY [facility] Last Admin: 07/22/17 10:01 Dose: 1 mg Hydrocortisone Sodium Succinate (Solu-Cortef) 100 mg IV Q8H [facility] Last Admin: 07/22/17 05:45 Dose: 100 mg Norepinephrine Bitartrate 4 mg (/ Sodium Chloride) 254 mls @ 19.05 mls/hr IV .[id number] PRN; Protocol; 5 MCG/MIN PRN Reason: TITRATE PER MD ORDER Last Titration: 07/22/17 08:17 Dose: 1 mcg/min, 3.81 mls/hr Aztreonam 2 gm/ Sodium (Chloride) 100 mls @ 200 mls/hr IVPB Q8H [facility] Last Admin: 07/22/17 08:28 Dose: 200 mls/hr Metronidazole (Flagyl) 500 mg in 100 mls @ 100 mls/hr IVPB Q8 [facility] Last Admin: 07/22/17 05:08 Dose: 100 mls/hr Linezolid (Zyvox 600mg/300ml D5w) 600 mg in 300 mls @ 200 mls/hr IVPB Q12 [facility] Last Admin: 07/22/17 10:49 Dose: 200 mls/hr Fluconazole (Diflucan Iv 200 Mg/100 Ml Ns) 100 mls @ 100 mls/hr IVPB DAILY [facility] Last Admin: 07/22/17 09:51 Dose: 100 mls/hr Sodium Chloride (Sodium Chloride 0.9%) 1,000 mls @ 75 mls/hr IV .[id number] [facility] Last Admin: 07/22/17 00:35 Dose: Not Given Insulin Aspart (Novolog) 0 unit SC Q6H [facility] PRN Reason: Protocol Last Admin: 07/22/17 05:46 Dose: 3 unit Montelukast Sodium (Singulair) 10 mg PO HS [facility] Last Admin: 07/21/17 21:10 Dose: 10 mg Multivitamins/Vitamin C (Multi-Delyn Liquid) 5 ml GT DAILY [facility] Last Admin: 07/22/17 10:01 Dose: 5 ml Potassium Chloride (Klor-Con 10) 10 meq PO DAILY [facility] Last Admin: 07/22/17 10:01 Dose: 10 meq Potassium Chloride (Potassium Chloride Oral Soln) 40 meq PO Q4H [facility] Stop: 07/22/17 19:01 Last Admin: 07/22/17 10:02 Dose: 40 meq Rosuvastatin Calcium (Crestor) 10 mg PO HS [facility] Last Admin: 07/21/17 21:08 Dose: 10 mg Zinc Sulfate (Zinc Sulfate 220 Mg Cap) 220 mg PO DAILY [facility] Last Admin: 07/22/17 10:02 Dose: 220 mg - Labs Labs: 07/22/17 06:11 07/22/17 06:08 PT 10.8 SECONDS (9.7-12.2) 07/20/17 10:42 INR 1.0 07/20/17 10:42 APTT 22 SECONDS (21-34) 07/20/17 17:41
--- NOTE | 2017-07-22 15:18 | CP.PCM.PN ---
Subjective - Date & Time of Evaluation Date of Evaluation: 07/22/17 Time of Evaluation: 08:00 - Subjective Subjective: events noted remains intubated in ICU New Subarachnoid hemmoirhage noted Objective - Vital Signs/Intake and Output Vital Signs (last 24 hours): Temp Pulse Resp BP Pulse Ox 95.0 F L 85 20 123/92 H 100 07/22/17 14:37 07/22/17 14:37 07/22/17 14:37 07/22/17 14:37 07/22/17 13:46 Intake and Output: 07/22/17 07/22/17 06:59 18:59 Intake Total 1541 762.3 Output Total 0 0 Balance 1541 762.3 - Medications Medications: Current Medications Acetaminophen (Tylenol 325 Mg Supp) 975 mg SC ONCE PRN PRN Reason: Fever >100.4 F Al Hydrox/Mg Hydrox/Simethicone (Maalox Plus 30 Ml) 30 ml PO Q4 PRN Albuterol/Ipratropium (Duoneb 3 Mg/0.5 Mg (3 Ml) Ud) 3 ml INH RQ6 [facility] [place] Last Admin: 07/22/17 13:09 Dose: 3 ml Ascorbic Acid (Vitamin C 500 Mg Tab) 500 mg NG DAILY [facility] [place] Last Admin: 07/22/17 10:02 Dose: 500 mg Budesonide (Pulmicort Respules) 0.5 mg IH RQ12 [facility] [place] Last Admin: 07/22/17 07:20 Dose: Not Given Docusate Sodium (Colace) 100 mg PO DAILY [facility] [place] Last Admin: 07/22/17 09:50 Dose: Not Given Famotidine (Pepcid) 20 mg PO DAILY [facility] [place] Last Admin: 07/22/17 10:01 Dose: 20 mg Folic Acid (Folic Acid) 1 mg PO DAILY [facility] [place] Last Admin: 07/22/17 10:01 Dose: 1 mg Hydrocortisone Sodium Succinate (Solu-Cortef) 100 mg IV Q8H [facility] [place] Last Admin: 07/22/17 05:45 Dose: 100 mg Norepinephrine Bitartrate 4 mg (/ Sodium Chloride) 254 mls @ 19.05 mls/hr IV .[id number] PRN; Protocol; 5 MCG/MIN PRN Reason: TITRATE PER MD ORDER Last Titration: 07/22/17 08:17 Dose: 1 mcg/min, 3.81 mls/hr Aztreonam 2 gm/ Sodium (Chloride) 100 mls @ 200 mls/hr IVPB Q8H [facility] [place] Last Admin: 07/22/17 08:28 Dose: 200 mls/hr Metronidazole (Flagyl) 500 mg in 100 mls @ 100 mls/hr IVPB Q8 [facility] [place] Last Admin: 07/22/17 13:40 Dose: 100 mls/hr Linezolid (Zyvox 600mg/300ml D5w) 600 mg in 300 mls @ 200 mls/hr IVPB Q12 [facility] [place] Last Admin: 07/22/17 10:49 Dose: 200 mls/hr Fluconazole (Diflucan Iv 200 Mg/100 Ml Ns) 100 mls @ 100 mls/hr IVPB DAILY [facility] [place] Last Admin: 07/22/17 09:51 Dose: 100 mls/hr Sodium Chloride (Sodium Chloride 0.9%) 1,000 mls @ 75 mls/hr IV .[id number] [facility] [place] Last Admin: 07/22/17 13:38 Dose: 75 mls/hr Insulin Aspart (Novolog) 0 unit SC Q6H [facility] [place] PRN Reason: Protocol Last Admin: 07/22/17 13:51 Dose: 4 unit Montelukast Sodium (Singulair) 10 mg PO HS [facility] [place] Last Admin: 07/21/17 21:10 Dose: 10 mg Multivitamins/Vitamin C (Multi-Delyn Liquid) 5 ml GT DAILY [facility] [place] Last Admin: 07/22/17 10:01 Dose: 5 ml Potassium Chloride (Klor-Con 10) 10 meq PO DAILY [facility] [place] Last Admin: 07/22/17 10:01 Dose: 10 meq Potassium Chloride (Potassium Chloride Oral Soln) 40 meq PO Q4H [facility] [place] Stop: 07/22/17 19:01 Last Admin: 07/22/17 10:02 Dose: 40 meq Rosuvastatin Calcium (Crestor) 10 mg PO HS [facility] [place] Last Admin: 07/21/17 21:08 Dose: 10 mg Zinc Sulfate (Zinc Sulfate 220 Mg Cap) 220 mg PO DAILY [facility] [place] Last Admin: 07/22/17 10:02 Dose: 220 mg - Labs Labs: 07/22/17 06:11 07/22/17 06:08 PT 10.8 SECONDS (9.7-12.2) 07/20/17 10:42 INR 1.0 07/20/17 10:42 APTT 22 SECONDS (21-34) 07/20/17 17:41 - Constitutional Appears: Confused - Head Exam Head Exam: NORMOCEPHALIC - Eye Exam Eye Exam: absent: Scleral icterus - ENT Exam ENT Exam: Mucous Membranes Dry - Neck Exam Neck Exam: absent: Lymphadenopathy - Respiratory Exam Respiratory Exam: Decreased Breath Sounds, Rhonchi - Cardiovascular Exam Cardiovascular Exam: REGULAR RHYTHM, +S1, +S2 - GI/Abdominal Exam GI & Abdominal Exam: Distended, Soft - Rectal Exam Rectal Exam: Deferred - Exam Exam: NORMAL INSPECTION - Extremities Exam Extremities Exam: absent: Pedal Edema - Back Exam Back Exam: absent: CVA tenderness (L), CVA tenderness (R) - Neurological Exam Neurological Exam: Altered - Psychiatric Exam Psychiatric exam: Depressed Assessment and Plan (1) Hypokalemia Status: Acute (2) Respiratory failure Status: Acute (3) Septic shock Status: Acute (4) Subarach hem-deep coma Status: Acute - Assessment and Plan (Free Text) Assessment: events noted neurosurg on board poor prognosis IV rx in progress cultures neg thus far
--- NOTE | 2017-07-22 15:53 | CP.CCUPN ---
CCU Subjective - Physician Review Events Since Last Encounter (Free Text): 07/22/17 15:51 spoke with the son, he is awaiting his sister to arrive from [place], and then he will be ready to withdraw to care. CCU Objective - Vital Signs / Intake & Output Vital Signs (Last 4 hours): Vital Signs Temp Pulse Resp BP Pulse Ox 07/22/17 14:37 95.0 F L 85 20 123/92 H 07/22/17 13:46 87 20 111/75 100 07/22/17 13:16 87 20 115/80 100 07/22/17 12:46 86 20 140/95 H 100 07/22/17 12:16 80 20 135/89 100 07/22/17 12:05 94.0 F L 81 20 127/87 Intake and Output (Last 8hrs): Intake & Output 07/22/17 07/22/17 07/22/17 06:59 14:59 22:59 Intake Total 1026 762.3 Output Total 0 0 Balance 1026 762.3 Weight 190 lb 0.615 oz Intake: IV 6 Intake, IV Amount 816 191.3 Right Distal Port 200 Internal Jugular Right Medial Port 600 187.5 Internal Jugular Right Proximal Port 16 3.8 Internal Jugular Tube Feeding 210 90 Blood Product 325 Red Blood Cells Cpd As1 325 Lr Unit [id number] Other 150 Red Blood Cells Cpd As1 150 Lr Unit [id number] Output: Urine 0 0 Urethral (Mon[place]) 0 Urine, Voided 0 0 Other: # Voids Urine, Voided 1 # Bowel Movements 1 1 - Physical Exam Pupils: Positive for: Sluggish Conjunctiva: Positive for: Normal Mouth: Positive for: Moist Mucous Membranes Respiratory/Chest: Positive for: Clear to Auscultation, Good Air Exchange. Negative for: Respiratory Distress Cardiovascular: Positive for: Regular Rate and Rhythm, Normal S1, S2, Rub Abdomen: Positive for: Distention, Normal Bowel Sounds. Negative for: Peritoneal Signs Upper Extremity: Positive for: Edema Lower Extremity: Positive for: Edema Neurological: Positive for: Other (not responsive to verbal stimuli) - Medications Active Medications: Active Medications Generic Name Dose Route Start Last Admin Trade Name Freq PRN Reason Stop Dose Admin Acetaminophen 975 mg 07/20/17 10:16 Tylenol 325 Mg Supp NC ONCE PRN Fever >100.4 F Al Hydrox/Mg Hydrox/Simethicone 30 ml 07/20/17 20:00 Maalox Plus 30 Ml PO Q4 PRN Albuterol/Ipratropium 3 ml 07/20/17 20:00 07/22/17 13:09 Duoneb 3 Mg/0.5 Mg (3 Ml) Ud INH 3 ml RQ6 [facility] Administration Ascorbic Acid 500 mg 07/21/17 10:00 07/22/17 10:02 Vitamin C 500 Mg Tab NG 500 mg DAILY [facility] Administration Budesonide 0.5 mg 07/20/17 21:00 07/22/17 07:20 Pulmicort Respules IH Not Given RQ12 [facility] Docusate Sodium 100 mg 07/21/17 10:00 07/22/17 09:50 Colace PO Not Given DAILY [facility] Famotidine 20 mg 07/21/17 10:00 07/22/17 10:01 Pepcid PO 20 mg DAILY [facility] Administration Folic Acid 1 mg 07/21/17 10:00 07/22/17 10:01 Folic Acid PO 1 mg DAILY [facility] Administration Hydrocortisone Sodium Succinate 100 mg 07/20/17 14:45 07/22/17 05:45 Solu-Cortef IV 100 mg Q8H [facility] Administration Norepinephrine Bitartrate 4 mg 254 mls @ 19.05 mls/hr 07/20/17 11:30 08:17 / Sodium Chloride IV 1 mcg/min .[id number] PRN 3.81 mls/hr TITRATE PER MD ORDER Titration Protocol 5 MCG/MIN Aztreonam 2 gm/ Sodium 100 mls @ 200 mls/hr 07/20/17 17:00 07/22/17 08:28 Chloride IVPB 200 mls/hr Q8H [facility] Administration Metronidazole 500 mg in 100 mls @ 100 mls/hr 07/20/17 22:00 07/22/17 13:40 Flagyl IVPB 100 mls/hr Q8 [facility] Administration Fluconazole 100 mls @ 100 mls/hr 07/21/17 10:00 07/22/17 09:51 Diflucan Iv 200 Mg/100 Ml Ns IVPB 100 mls/hr DAILY [facility] Administration Sodium Chloride 1,000 mls @ 75 mls/hr 07/21/17 10:45 07/22/17 13:38 Sodium Chloride 0.9% IV 75 mls/hr .[id number] [facility] Administration Vancomycin HCl 1 gm/ Sodium 250 mls @ 166.7 mls/hr 07/22/17 16:00 Chloride IVPB Q24H [facility] Insulin Aspart 0 unit 07/20/17 18:00 07/22/17 13:51 Novolog SC 4 unit Q6H [facility] Administration Protocol Montelukast Sodium 10 mg 07/20/17 22:00 07/21/17 21:10 Singulair PO 10 mg HS [facility] Administration Multivitamins/Vitamin C 5 ml 07/21/17 10:00 07/22/17 10:01 Multi-Delyn Liquid GT 5 ml DAILY [facility] Administration Potassium Chloride 10 meq 07/21/17 10:00 07/22/17 10:01 Klor-Con 10 PO 10 meq DAILY [facility] Administration Potassium Chloride 40 meq 07/22/17 07:00 07/22/17 10:02 Potassium Chloride Oral Soln PO 07/22/17 19:01 40 meq Q4H [facility] Administration Rosuvastatin Calcium 10 mg 07/20/17 22:00 07/21/17 21:08 Crestor PO 10 mg HS [facility] Administration Zinc Sulfate 220 mg 07/21/17 10:00 07/22/17 10:02 Zinc Sulfate 220 Mg Cap PO 220 mg DAILY [facility] Administration - Patient Studies Lab Studies: Microbiology Studies 07/20/17 10:20 Blood Culture - Preliminary Blood NO GROWTH AFTER 24 HOURS 07/20/17 10:50 Blood Culture - Preliminary Blood NO GROWTH AFTER 24 HOURS 07/20/17 Unknown Blood Culture - Preliminary Blood-Venous NO GROWTH AFTER 24 HOURS 07/20/17 12:00 Urine Culture - Final Urine,Monzon No Growth (<1,000 CFU/ML) Lab Studies 07/22/17 07/22/17 07/22/17 Range/Units 11:37 06:11 06:08 WBC 9.1 (4.8-10.8) K/uL RBC 1.91 L (3.80-5.20) Mil/uL Hgb 6.3 L* D (11.0-16.0) g/dL Hct 18.4 L (34.0-47.0) % MCV 96.1 (81.0-99.0) fL MCH 33.0 H (27.0-31.0) pg MCHC 34.4 (33.0-37.0) g/dL RDW 19.8 H (11.5-14.5) % Plt Count 181 (130-400) K/uL MPV 8.9 (7.2-11.7) fL Neut % (Auto) 93.5 H (50.0-75.0) % Lymph % (Auto) 2.7 L (20.0-40.0) % [place] % (Auto) 3.7 (0.0-10.0) % Eos % (Auto) 0.0 (0.0-4.0) % Baso % (Auto) 0.1 (0.0-2.0) % Neut # (Auto) 8.5 H (1.8-7.0) K/uL Lymph # (Auto) 0.2 L (1.0-4.3) K/uL [place] # (Auto) 0.3 (0.0-0.8) K/uL Eos # (Auto) 0.0 (0.0-0.7) K/uL Baso # (Auto) 0.0 (0.0-0.2) K/uL Neutrophils % (Manual) 90 H (50-75) % Band Neutrophils % 3 H (0-2) % Lymphocytes % (Manual) 3 L (20-40) % Monocytes % (Manual) 4 (0-10) % Platelet Estimate Normal (NORMAL) Large Platelets Present Polychromasia Slight Poikilocytosis (manual Slight Anisocytosis (manual) Moderate Microcytosis (manual) Slight Macrocytosis (manual) Slight Spherocytes Slight Ovalocytes Slight [place] Cells Slight Schistocytes Slight Puncture Site pCO2 (35-45) mm/Hg pO2 (80-100) mm/Hg HCO3 (21-28) mmol/L ABG pH (7.35-7.45) ABG Total CO2 (22-28) mmol/L ABG O2 Saturation (95-98) % ABG Base Excess (-2.0-3.0) mmol/L Issa Test ABG Potassium (3.6-5.2) mmol/L A-a O2 Difference mm/Hg Respiratory Index Sodium 139 (132-148) mmol/l Chloride 113 H (98-107) mmol/L Glucose (65-105) mg/dl Lactate (0.7-2.1) mmol/L Vent Mode Mechanical Rate FiO2 % Tidal Volume PEEP Crit Value Called To Crit Value Called By Crit Value Read Back Blood Gas Notified Time Potassium 2.9 L (3.6-5.2) mmol/L Carbon Dioxide 15 L (22-30) mmol/L Anion Gap 14 (10-20) BUN 15 (7-17) mg/dL Creatinine 0.5 L (0.7-1.2) mg/dL Est GFR ( Amer) > 60 Est GFR (Non-Af Amer) > 60 POC Glucose (mg/dL) 313 H (65-110) mg/dL Random Glucose 235 H (65-105) mg/dL Calcium 7.5 L (8.6-10.4) mg/dl Phosphorus 2.5 (2.5-4.5) mg/dL Magnesium 1.9 (1.6-2.3) mg/dL Total Bilirubin 0.2 (0.2-1.3) mg/dL AST 15 (14-36) U/L ALT 45 (9-52) U/L Alkaline Phosphatase 70 (38-126) U/L Total Protein 4.5 L (6.3-8.3) g/dL Albumin 2.0 L (3.5-5.0) g/dL Globulin 2.4 (2.2-3.9) gm/dL Albumin/Globulin Ratio 0.8 L (1.0-2.1) Arterial Blood Potassium (3.6-5.2) mmol/L Blood Type Antibody Screen 07/22/17 07/22/17 07/21/17 Range/Units 05:22 05:02 23:30 WBC (4.8-10.8) K/uL RBC (3.80-5.20) Mil/uL Hgb (11.0-16.0) g/dL Hct (34.0-47.0) % MCV (81.0-99.0) fL MCH (27.0-31.0) pg MCHC (33.0-37.0) g/dL RDW (11.5-14.5) % Plt Count (130-400) K/uL MPV (7.2-11.7) fL Neut % (Auto) (50.0-75.0) % Lymph % (Auto) (20.0-40.0) % [place] % (Auto) (0.0-10.0) % Eos % (Auto) (0.0-4.0) % Baso % (Auto) (0.0-2.0) % Neut # (Auto) (1.8-7.0) K/uL Lymph # (Auto) (1.0-4.3) K/uL [place] # (Auto) (0.0-0.8) K/uL Eos # (Auto) (0.0-0.7) K/uL Baso # (Auto) (0.0-0.2) K/uL Neutrophils % (Manual) (50-75) % Band Neutrophils % (0-2) % Lymphocytes % (Manual) (20-40) % Monocytes % (Manual) (0-10) % Platelet Estimate (NORMAL) Large Platelets Polychromasia Poikilocytosis (manual Anisocytosis (manual) Microcytosis (manual) Macrocytosis (manual) Spherocytes Ovalocytes [place]admin[place] Cells Schistocytes Puncture Site Rr pCO2 17 L* (35-45) mm/Hg pO2 170 H (80-100) mm/Hg HCO3 20.5 L (21-28) mmol/L ABG pH 7.53 H (7.35-7.45) ABG Total CO2 14.7 L (22-28) mmol/L ABG O2 Saturation 99.4 H (95-98) % ABG Base Excess -5.7 L (-2.0-3.0) mmol/L Issa Test Pos ABG Potassium 2.8 L (3.6-5.2) mmol/L A-a O2 Difference 94.0 mm/Hg Respiratory Index 0.6 Sodium 140.0 (132-148) mmol/l Chloride 113.0 H (98-107) mmol/L Glucose 266 H (65-105) mg/dl Lactate 1.6 (0.7-2.1) mmol/L Vent Mode Prvc Mechanical Rate 20 FiO2 40.0 % Tidal Volume 450 PEEP 5 Crit Value Called To Brook ken[facility] [employer] registered nurse icu Crit Value Called By Hortensia jones rt Crit Value Read Back Y Blood Gas Notified Time 551 Potassium (3.6-5.2) mmol/L Carbon Dioxide (22-30) mmol/L Anion Gap (10-20) BUN (7-17) mg/dL Creatinine (0.7-1.2) mg/dL Est GFR ( Amer) Est GFR (Non-Af Amer) POC Glucose (mg/dL) 271 H 279 H (65-110) mg/dL Random Glucose (65-105) mg/dL Calcium (8.6-10.4) mg/dl Phosphorus (2.5-4.5) mg/dL Magnesium (1.6-2.3) mg/dL Total Bilirubin (0.2-1.3) mg/dL AST (14-36) U/L ALT (9-52) U/L Alkaline Phosphatase (38-126) U/L Total Protein (6.3-8.3) g/dL Albumin (3.5-5.0) g/dL Globulin (2.2-3.9) gm/dL Albumin/Globulin Ratio (1.0-2.1) Arterial Blood Potassium 2.8 L (3.6-5.2) mmol/L Blood Type Antibody Screen 07/21/17 07/21/17 Range/Units 17:48 11:44 WBC (4.8-10.8) K/uL RBC (3.80-5.20) Mil/uL Hgb (11.0-16.0) g/dL Hct (34.0-47.0) % MCV (81.0-99.0) fL MCH (27.0-31.0) pg MCHC (33.0-37.0) g/dL RDW (11.5-14.5) % Plt Count (130-400) K/uL MPV (7.2-11.7) fL Neut % (Auto) (50.0-75.0) % Lymph % (Auto) (20.0-40.0) % [place] % (Auto) (0.0-10.0) % Eos % (Auto) (0.0-4.0) % Baso % (Auto) (0.0-2.0) % Neut # (Auto) (1.8-7.0) K/uL Lymph # (Auto) (1.0-4.3) K/uL [place] # (Auto) (0.0-0.8) K/uL Eos # (Auto) (0.0-0.7) K/uL Baso # (Auto) (0.0-0.2) K/uL Neutrophils % (Manual) (50-75) % Band Neutrophils % (0-2) % Lymphocytes % (Manual) (20-40) % Monocytes % (Manual) (0-10) % Platelet Estimate (NORMAL) Large Platelets Polychromasia Poikilocytosis (manual Anisocytosis (manual) Microcytosis (manual) Macrocytosis (manual) Spherocytes Ovalocytes [place] Cells Schistocytes Puncture Site pCO2 (35-45) mm/Hg pO2 (80-100) mm/Hg HCO3 (21-28) mmol/L ABG pH (7.35-7.45) ABG Total CO2 (22-28) mmol/L ABG O2 Saturation (95-98) % ABG Base Excess (-2.0-3.0) mmol/L Issa Test ABG Potassium (3.6-5.2) mmol/L A-a O2 Difference mm/Hg Respiratory Index Sodium (132-148) mmol/l Chloride (98-107) mmol/L Glucose (65-105) mg/dl Lactate (0.7-2.1) mmol/L Vent Mode Mechanical Rate FiO2 % Tidal Volume PEEP Crit Value Called To Crit Value Called By Crit Value Read Back Blood Gas Notified Time Potassium (3.6-5.2) mmol/L Carbon Dioxide (22-30) mmol/L Anion Gap (10-20) BUN (7-17) mg/dL Creatinine (0.7-1.2) mg/dL Est GFR ( Amer) Est GFR (Non-Af Amer) POC Glucose (mg/dL) 235 H (65-110) mg/dL Random Glucose (65-105) mg/dL Calcium (8.6-10.4) mg/dl Phosphorus (2.5-4.5) mg/dL Magnesium (1.6-2.3) mg/dL Total Bilirubin (0.2-1.3) mg/dL AST (14-36) U/L ALT (9-52) U/L Alkaline Phosphatase (38-126) U/L Total Protein (6.3-8.3) g/dL Albumin (3.5-5.0) g/dL Globulin (2.2-3.9) gm/dL Albumin/Globulin Ratio (1.0-2.1) Arterial Blood Potassium (3.6-5.2) mmol/L Blood Type A POSITIVE Antibody Screen Negative Laboratory Results - last 24 hr 07/21/17 07/21/17 07/21/17 11:44 17:48 23:30 WBC RBC Hgb Hct MCV MCH MCHC RDW Plt Count MPV Neut % (Auto) Lymph % (Auto) [place] % (Auto) Eos % (Auto) Baso % (Auto) Neut # (Auto) Lymph # (Auto) [place] # (Auto) Eos # (Auto) Baso # (Auto) Neutrophils % (Manual) Band Neutrophils % Lymphocytes % (Manual) Monocytes % (Manual) Platelet Estimate Large Platelets Polychromasia Poikilocytosis (manual Anisocytosis (manual) Microcytosis (manual) Macrocytosis (manual) Spherocytes Ovalocytes [place] Cells Schistocytes Puncture Site pCO2 pO2 HCO3 ABG pH ABG Total CO2 ABG O2 Saturation ABG Base Excess Issa Test ABG Potassium A-a O2 Difference Respiratory Index Sodium Chloride Glucose Lactate Vent Mode Mechanical Rate FiO2 Tidal Volume PEEP Crit Value Called To Crit Value Called By Crit Value Read Back Blood Gas Notified Time Potassium Carbon Dioxide Anion Gap BUN Creatinine Est GFR ( Amer) Est GFR (Non-Af Amer) POC Glucose (mg/dL) 235 H 279 H Random Glucose Calcium Phosphorus Magnesium Total Bilirubin AST ALT Alkaline Phosphatase Total Protein Albumin Globulin Albumin/Globulin Ratio Arterial Blood Potassium Blood Type A POSITIVE Antibody Screen Negative 07/22/17 07/22/17 07/22/17 05:02 05:22 06:08 WBC RBC Hgb Hct MCV MCH MCHC RDW Plt Count MPV Neut % (Auto) Lymph % (Auto) [place] % (Auto) Eos % (Auto) Baso % (Auto) Neut # (Auto) Lymph # (Auto) [place] # (Auto) Eos # (Auto) Baso # (Auto) Neutrophils % (Manual) Band Neutrophils % Lymphocytes % (Manual) Monocytes % (Manual) Platelet Estimate Large Platelets Polychromasia Poikilocytosis (manual Anisocytosis (manual) Microcytosis (manual) Macrocytosis (manual) Spherocytes Ovalocytes [place] Cells Schistocytes Puncture Site Rr pCO2 17 L* pO2 170 H HCO3 20.5 L ABG pH 7.53 H ABG Total CO2 14.7 L ABG O2 Saturation 99.4 H ABG Base Excess -5.7 L Issa Test Pos ABG Potassium 2.8 L A-a O2 Difference 94.0 Respiratory Index 0.6 Sodium 140.0 139 Chloride 113.0 H 113 H Glucose 266 H Lactate 1.6 Vent Mode Prvc Mechanical Rate 20 FiO2 40.0 Tidal Volume 450 PEEP 5 Crit Value Called To [facility] [employer] registered nurse icu Crit Value Called By Hortensia jones rt Crit Value Read Back Y Blood Gas Notified Time 551 Potassium 2.9 L Carbon Dioxide 15 L Anion Gap 14 BUN 15 Creatinine 0.5 L Est GFR ( Amer) > 60 Est GFR (Non-Af Amer) > 60 POC Glucose (mg/dL) 271 H Random Glucose 235 H Calcium 7.5 L Phosphorus 2.5 Magnesium 1.9 Total Bilirubin 0.2 AST 15 ALT 45 Alkaline Phosphatase 70 Total Protein 4.5 L Albumin 2.0 L Globulin 2.4 Albumin/Globulin Ratio 0.8 L Arterial Blood Potassium 2.8 L Blood Type Antibody Screen 07/22/17 07/22/17 06:11 11:37 WBC 9.1 RBC 1.91 L Hgb 6.3 L* D Hct 18.4 L MCV 96.1 MCH 33.0 H MCHC 34.4 RDW 19.8 H Plt Count 181 MPV 8.9 Neut % (Auto) 93.5 H Lymph % (Auto) 2.7 L [place] % (Auto) 3.7 Eos % (Auto) 0.0 Baso % (Auto) 0.1 Neut # (Auto) 8.5 H Lymph # (Auto) 0.2 L [place] # (Auto) 0.3 Eos # (Auto) 0.0 Baso # (Auto) 0.0 Neutrophils % (Manual) 90 H Band Neutrophils % 3 H Lymphocytes % (Manual) 3 L Monocytes % (Manual) 4 Platelet Estimate Normal Large Platelets Present Polychromasia Slight Poikilocytosis (manual Slight Anisocytosis (manual) Moderate Microcytosis (manual) Slight Macrocytosis (manual) Slight Spherocytes Slight Ovalocytes Slight [place] Cells Slight Schistocytes Slight Puncture Site pCO2 pO2 HCO3 ABG pH ABG Total CO2 ABG O2 Saturation ABG Base Excess Issa Test ABG Potassium A-a O2 Difference Respiratory Index Sodium Chloride Glucose Lactate Vent Mode Mechanical Rate FiO2 Tidal Volume PEEP Crit Value Called To Crit Value Called By Crit Value Read Back Blood Gas Notified Time Potassium Carbon Dioxide Anion Gap BUN Creatinine Est GFR ( Amer) Est GFR (Non-Af Amer) POC Glucose (mg/dL) 313 H Random Glucose Calcium Phosphorus Magnesium Total Bilirubin AST ALT Alkaline Phosphatase Total Protein Albumin Globulin Albumin/Globulin Ratio Arterial Blood Potassium Blood Type Antibody Screen Fingerstick Blood Sugar Results: 313
--- NOTE | 2017-07-22 16:09 | CP.PCM.PN ---
Subjective - Date & Time of Evaluation Date of Evaluation: 07/22/17 Time of Evaluation: 12:00 - Subjective Subjective: clinically same Objective - Vital Signs/Intake and Output Vital Signs (last 24 hours): Temp Pulse Resp BP Pulse Ox 95.0 F L 85 20 123/92 H 100 07/22/17 14:37 07/22/17 14:37 07/22/17 14:37 07/22/17 14:37 07/22/17 13:46 Intake and Output: 07/22/17 07/22/17 06:59 18:59 Intake Total 1541 772.3 Output Total 0 0 Balance 1541 772.3 - Medications Medications: Current Medications Acetaminophen (Tylenol 325 Mg Supp) 975 mg [place] ONCE PRN PRN Reason: Fever >100.4 F Al Hydrox/Mg Hydrox/Simethicone (Maalox Plus 30 Ml) 30 ml PO Q4 PRN Albuterol/Ipratropium (Duoneb 3 Mg/0.5 Mg (3 Ml) Ud) 3 ml INH RQ6 [facility] Last Admin: 07/22/17 13:09 Dose: 3 ml Ascorbic Acid (Vitamin C 500 Mg Tab) 500 mg NG DAILY [facility] Last Admin: 07/22/17 10:02 Dose: 500 mg Budesonide (Pulmicort Respules) 0.5 mg IH RQ12 [facility] Last Admin: 07/22/17 07:20 Dose: Not Given Docusate Sodium (Colace) 100 mg PO DAILY [facility] Last Admin: 07/22/17 09:50 Dose: Not Given Famotidine (Pepcid) 20 mg PO DAILY [facility] Last Admin: 07/22/17 10:01 Dose: 20 mg Folic Acid (Folic Acid) 1 mg PO DAILY [facility] Last Admin: 07/22/17 10:01 Dose: 1 mg Hydrocortisone Sodium Succinate (Solu-Cortef) 100 mg IV Q8H [facility] Last Admin: 07/22/17 15:52 Dose: 100 mg Norepinephrine Bitartrate 4 mg (/ Sodium Chloride) 254 mls @ 19.05 mls/hr IV .[id number] PRN; Protocol; 5 MCG/MIN PRN Reason: TITRATE PER MD ORDER Last Titration: 07/22/17 12:00 Dose: 0.5 mcg/min, 1.9 mls/hr Aztreonam 2 gm/ Sodium (Chloride) 100 mls @ 200 mls/hr IVPB Q8H [facility] Last Admin: 07/22/17 08:28 Dose: 200 mls/hr Metronidazole (Flagyl) 500 mg in 100 mls @ 100 mls/hr IVPB Q8 [facility] Last Admin: 07/22/17 13:40 Dose: 100 mls/hr Fluconazole (Diflucan Iv 200 Mg/100 Ml Ns) 100 mls @ 100 mls/hr IVPB DAILY [facility] Last Admin: 07/22/17 09:51 Dose: 100 mls/hr Sodium Chloride (Sodium Chloride 0.9%) 1,000 mls @ 75 mls/hr IV .[id number] [facility] Last Admin: 07/22/17 13:38 Dose: 75 mls/hr Vancomycin HCl (Vancomycin 1gm In Normal Saline Addvantage) 1 gm in 250 mls @ 166.7 mls/hr IVPB Q24H [facility] Insulin Aspart (Novolog) 0 unit SC Q6H [facility] PRN Reason: Protocol Last Admin: 07/22/17 13:51 Dose: 4 unit Montelukast Sodium (Singulair) 10 mg PO HS [facility] Last Admin: 07/21/17 21:10 Dose: 10 mg Multivitamins/Vitamin C (Multi-Delyn Liquid) 5 ml GT DAILY [facility] Last Admin: 07/22/17 10:01 Dose: 5 ml Potassium Chloride (Klor-Con 10) 10 meq PO DAILY [facility] Last Admin: 07/22/17 10:01 Dose: 10 meq Potassium Chloride (Potassium Chloride Oral Soln) 40 meq PO Q4H [facility] Stop: 07/22/17 19:01 Last Admin: 07/22/17 15:53 Dose: 40 meq Rosuvastatin Calcium (Crestor) 10 mg PO HS [facility] Last Admin: 07/21/17 21:08 Dose: 10 mg Zinc Sulfate (Zinc Sulfate 220 Mg Cap) 220 mg PO DAILY [facility] Last Admin: 07/22/17 10:02 Dose: 220 mg - Labs Labs: 07/22/17 06:11 07/22/17 06:08 PT 10.8 SECONDS (9.7-12.2) 07/20/17 10:42 INR 1.0 07/20/17 10:42 APTT 22 SECONDS (21-34) 07/20/17 17:41 - Constitutional Appears: Well - Head Exam Head Exam: ATRAUMATIC, NORMAL INSPECTION, NORMOCEPHALIC - Eye Exam Eye Exam: EOMI, Normal appearance, PERRL Pupil Exam: NORMAL ACCOMODATION, PERRL - ENT Exam ENT Exam: Mucous Membranes Moist, Normal Exam - Neck Exam Neck Exam: Full ROM, Normal Inspection. absent: Lymphadenopathy - Respiratory Exam Respiratory Exam: Decreased Breath Sounds - Cardiovascular Exam Cardiovascular Exam: REGULAR RHYTHM, +S1, +S2 - GI/Abdominal Exam GI & Abdominal Exam: Soft, Diminished Bowel Sounds - Rectal Exam Rectal Exam: Deferred Assessment and Plan (1) Hypokalemia Status: Acute (2) Respiratory failure Status: Acute (3) Septic shock Status: Acute (4) Acute urinary tract infection Status: Acute (5) Allergic urticaria Status: Acute (6) Asthma Status: Acute (7) Asthma exacerbation Status: Acute (8) Bronchitis Status: Acute (9) COPD exacerbation Status: Acute (10) Constipation Status: Acute (11) Dehydration symptoms Status: Acute (12) Dyspnea Status: Acute (13) Dyspnea Status: Acute (14) Elevated troponin Status: Acute (15) Fever Status: Acute (16) Influenza Status: Acute (17) Pneumonia Status: Acute (18) Prophylactic measure Status: Acute (19) Respiratory distress Status: Acute (20) Sepsis Status: Acute (21) UTI (urinary tract infection) Status: Acute (22) Weakness Status: Acute (23) GERD (gastroesophageal reflux disease) Status: Chronic (24) HTN (hypertension) Status: Chronic (25) Hyperlipidemia Status: Chronic (26) Hypertension Status: Chronic - Assessment and Plan (Free Text) Plan: Spoke to the family 4 PRBCs KCl supplemented Sheehan patient is on multiple antibiotics like H2O also on Diflucan Patient is on no vasopressors Continue all medications Continue vancomycin Follow-up with the pulmonary follow-up with the cardiology Poor prognosis Discussed with 2 brothers Janusz and Eitan today who were bed side
[2017-07-22] MEDS ORDERED: Vancomycin 1 GM 1 GM/250 ML BAG IVPB SCH (16:15)
[2017-07-22] MEDS: Vancomycin 1 gm/NS 200 ml 1 GM/200 ML BAG IVPB SCH (17:09)
[2017-07-23] MEDS: Albuterol-Ipratrop 3 mg / 0.5 (3 ml) UD INH SCH ×3 (01:20→14:02)
[2017-07-23] MEDS: Aztreonam 2 GM in Sodium Chloride 0.9% 100 ML IVPB SCH ×3 (01:33→16:45)
[2017-07-23] MEDS: Sodium Chloride 0.9% 1,000 ML IV SCH ×2 (02:45→17:56)
[2017-07-23] MEDS: metroNIDAZOLE IV 500 mg/100 ml 500 MG/100 ML BAG IVPB SCH ×2 (05:52→14:49)
[2017-07-23] MEDS: (Novolog) Insulin Aspart, Recombinant 100 u/ml 10 ml vial SC SCH ×4 (06:44→17:57)
[2017-07-23] MEDS: Budesonide 0.5 mg/2 ml Inhal Susp UD IH SCH (08:10)
[2017-07-23 08:18] LABS: BASO % 0.3 % (0.0-2.0); LYMPH # 0.3 K/uL (1.0-4.3); LYMPH % 2.5 % (20.0-40.0); MEAN CELL VOLUME 96.4 fL (81.0-99.0); MEAN CORPUSCULAR HEMOGLOBIN 32.6 pg (27.0-31.0); MEAN CORPUSCULAR HGB CONC 33.8 g/dL (33.0-37.0); MEAN PLATELET VOLUME 8.6 fL (7.2-11.7); MONO # 0.4 K/uL (0.0-0.8); MONO % 3.1 % (0.0-10.0); NEUT # 12.3 K/uL (1.8-7.0); NEUT % 94.1 % (50.0-75.0); NRBC % 0.7 % (0.0-2.0); PLATELET COUNT 200 K/uL (130-400); RBC 2.86 Mil/uL (3.80-5.20); RED CELL DISTRIBUTION WIDTH 19.9 % (11.5-14.5); WHITE BLOOD COUNT 13.1 K/uL (4.8-10.8)
[2017-07-23 08:26] LABS: HEMOGLOBIN 9.3 g/dL (11.0-16.0)
[2017-07-23 08:53] LABS: ALB/GLOB RATIO 0.9 (1.0-2.1); ALBUMIN 2.3 g/dL (3.5-5.0); ALT/SGPT 45 U/L (9-52); AST/SGOT 11 U/L (14-36); BLOOD UREA NITROGEN 16 mg/dL (7-17); GFR AFRICAN-AMERICAN > 60; GFR NON-AFRICAN AMERICAN > 60
[2017-07-23] MEDS: Potassium Chloride 10 mEq ER Tab PO SCH (09:08)
[2017-07-23] MEDS: Fluconazole IV 200mg/100 ml NS 100 ML IVPB SCH (09:16)
[2017-07-23 09:18] LABS: MONOCYTE 3 % (0-10); TOTAL CELLS COUNTED 100
[2017-07-23 09:19] LABS: ANISOCYTOSIS SLIGHT; BURR CELLS SLIGHT; HYPOCHROMIC SLIGHT; LYMPHOCYTE 2 % (20-40); NEUTROPHIL 95 % (50-75); OVALOCYTES SLIGHT; PLATELET ESTIMATE NORMAL (NORMAL); POIKILOCYTOSIS SLIGHT; TARGET CELLS SLIGHT
--- NOTE | 2017-07-23 09:38 | CARD ---
APPROVED REPORT EKG Measurement Heart [id number] [id number] <Conclusion> Sinus tachycardia with premature atrial complexes ST & T wave abnormality, consider lateral ischemia Abnormal ECG
[2017-07-23] MEDS: Multiple Vitamins Oral Solution GT SCH (10:55)
--- NOTE | 2017-07-23 11:02 | CP.CCUPN ---
CCU Subjective - Physician Review Subjective (Free Text): 07/23/17 11:01 Patient seen and examined at bedside .Per nursing no acute events occurred overnight. Critical Care Time Spent (in minutes): 45 CCU Objective - Vital Signs / Intake & Output Vital Signs (Last 4 hours): Vital Signs Temp Pulse Resp BP Pulse Ox 07/23/17 09:00 97.6 F 07/23/17 08:48 91 H 20 119/69 100 07/23/17 08:16 91 H 20 98/64 L 100 07/23/17 07:46 87 20 97/59 L 100 07/23/17 07:16 87 20 103/65 100 Intake and Output (Last 8hrs): Intake & Output 07/22/17 07/23/17 07/23/17 22:59 06:59 14:59 Intake Total 617.1 660.0 230.0 Output Total 350 Balance 267.1 660.0 230.0 Weight 192 lb Intake: IV 10 20 Intake, IV Amount 607.1 660.0 210.0 Right Distal Port 200 Internal Jugular Right Medial Port 375 600 187.5 Internal Jugular Right Proximal Port 32.1 60.0 22.5 Internal Jugular Tube Feeding 0 0 0 Output: Gastric Amount 350 Right Nares 350 Other: # Voids Urine, Voided 1 1 1 # Bowel Movements 1 1 1 - Physical Exam Head: Positive for: Atraumatic, Normocephalic Pupils: Positive for: Sluggish Conjunctiva: Positive for: Normal Mouth: Positive for: Moist Mucous Membranes Respiratory/Chest: Positive for: Clear to Auscultation, Good Air Exchange. Negative for: Respiratory Distress Cardiovascular: Positive for: Regular Rate and Rhythm, Normal S1, S2, Rub Abdomen: Positive for: Distention, Normal Bowel Sounds. Negative for: Peritoneal Signs Upper Extremity: Positive for: Edema Lower Extremity: Positive for: Edema Neurological: Positive for: Other (not responsive to verbal stimuli) - Medications Active Medications: Active Medications Generic Name Dose Route Start Last Admin Trade Name Freq PRN Reason Stop Dose Admin Acetaminophen 975 mg 07/20/17 10:16 Tylenol 325 Mg Supp [place] ONCE PRN Fever >100.4 F Albuterol/Ipratropium 3 ml 07/20/17 20:00 07/23/17 08:10 Duoneb 3 Mg/0.5 Mg (3 Ml) Ud INH 3 ml RQ6 [facility] Administration Ascorbic Acid 500 mg 07/21/17 10:00 07/23/17 09:19 Vitamin C 500 Mg Tab NG 500 mg DAILY [facility] Administration Docusate Sodium 100 mg 07/21/17 10:00 07/23/17 09:09 Colace PO Not Given DAILY [facility] Famotidine 20 mg 07/21/17 10:00 07/23/17 09:18 Pepcid PO 20 mg DAILY [facility] Administration Folic Acid 1 mg 07/21/17 10:00 07/23/17 09:17 Folic Acid PO 1 mg DAILY [facility] Administration Aztreonam 2 gm/ Sodium 100 mls @ 200 mls/hr 07/20/17 17:00 07/23/17 08:04 Chloride IVPB 200 mls/hr Q8H [facility] Administration Metronidazole 500 mg in 100 mls @ 100 mls/hr 07/20/17 22:00 07/23/17 05:52 Flagyl IVPB 100 mls/hr Q8 [facility] Administration Fluconazole 100 mls @ 100 mls/hr 07/21/17 10:00 07/23/17 09:16 Diflucan Iv 200 Mg/100 Ml Ns IVPB 100 mls/hr DAILY [facility] Administration Sodium Chloride 1,000 mls @ 75 mls/hr 07/21/17 10:45 07/23/17 02:45 Sodium Chloride 0.9% IV Not Given .[id number] [facility] Vancomycin/Sodium Chloride 1 gm in 200 mls @ 166.7 mls/hr 07/22/17 16:30 09/05 17:09 Vancomycin 1 Gm/Ns 200 Ml IVPB 07/27/17 16:16 166.7 mls/hr Q24H [facility] Administration Insulin Aspart 0 unit 07/20/17 18:00 07/23/17 06:44 Novolog SC 4 unit Q6H [facility] Administration Protocol Multivitamins/Vitamin C 5 ml 07/21/17 10:00 07/23/17 10:55 Multi-Delyn Liquid GT 5 ml DAILY [facility] Administration Zinc Sulfate 220 mg 07/21/17 10:00 07/23/17 09:19 Zinc Sulfate 220 Mg Cap PO 220 mg DAILY [facility] Administration - Patient Studies Lab Studies: Microbiology Studies 07/20/17 10:20 Blood Culture - Preliminary Blood NO GROWTH AFTER 48 HOURS 07/20/17 10:50 Blood Culture - Preliminary Blood NO GROWTH AFTER 48 HOURS 07/20/17 Unknown Blood Culture - Preliminary Blood-Venous NO GROWTH AFTER 48 HOURS Lab Studies 07/23/17 07/23/17 07/23/17 Range/Units 08:14 08:14 06:31 WBC 13.1 H (4.8-10.8) K/uL RBC 2.86 L (3.80-5.20) Mil/uL Hgb 9.3 L D (11.0-16.0) g/dL Hct 27.6 L (34.0-47.0) % MCV 96.4 (81.0-99.0) fL MCH 32.6 H (27.0-31.0) pg MCHC 33.8 (33.0-37.0) g/dL RDW 19.9 H (11.5-14.5) % Plt Count 200 (130-400) K/uL MPV 8.6 (7.2-11.7) fL Neut % (Auto) 94.1 H (50.0-75.0) % Lymph % (Auto) 2.5 L (20.0-40.0) % [place] % (Auto) 3.1 (0.0-10.0) % Eos % (Auto) 0.0 (0.0-4.0) % Baso % (Auto) 0.3 (0.0-2.0) % Neut # (Auto) 12.3 H (1.8-7.0) K/uL Lymph # (Auto) 0.3 L (1.0-4.3) K/uL [place] # (Auto) 0.4 (0.0-0.8) K/uL Eos # (Auto) 0.0 (0.0-0.7) K/uL Baso # (Auto) 0.0 (0.0-0.2) K/uL Neutrophils % (Manual) 95 H (50-75) % Lymphocytes % (Manual) 2 L (20-40) % Monocytes % (Manual) 3 (0-10) % Platelet Estimate Normal (NORMAL) Hypochromasia (manual) Slight Poikilocytosis (manual Slight Anisocytosis (manual) Slight Target Cells Slight Ovalocytes Slight Stover Cells Slight Sodium 143 (132-148) mmol/L Potassium 5.6 H (3.6-5.2) mmol/L Chloride 121 H (98-107) mmol/L Carbon Dioxide 9 L* D (22-30) mmol/L Anion Gap 18 (10-20) BUN 16 (7-17) mg/dL Creatinine 0.5 L (0.7-1.2) mg/dL Est GFR ( Amer) > 60 Est GFR (Non-Af Amer) > 60 POC Glucose (mg/dL) 303 H (65-110) mg/dL Random Glucose 301 H (65-105) mg/dL Calcium 8.0 L (8.6-10.4) mg/dl Total Bilirubin 0.2 (0.2-1.3) mg/dL AST 11 L D (14-36) U/L ALT 45 (9-52) U/L Alkaline Phosphatase 87 (38-126) U/L Total Protein 4.8 L (6.3-8.3) g/dL Albumin 2.3 L (3.5-5.0) g/dL Globulin 2.5 (2.2-3.9) gm/dL Albumin/Globulin Ratio 0.9 L (1.0-2.1) Blood Type Antibody Screen 07/22/17 07/22/17 07/22/17 Range/Units 23:51 17:22 11:37 WBC (4.8-10.8) K/uL RBC (3.80-5.20) Mil/uL Hgb (11.0-16.0) g/dL Hct (34.0-47.0) % MCV (81.0-99.0) fL MCH (27.0-31.0) pg MCHC (33.0-37.0) g/dL RDW (11.5-14.5) % Plt Count (130-400) K/uL MPV (7.2-11.7) fL Neut % (Auto) (50.0-75.0) % Lymph % (Auto) (20.0-40.0) % [place] % (Auto) (0.0-10.0) % Eos % (Auto) (0.0-4.0) % Baso % (Auto) (0.0-2.0) % Neut # (Auto) (1.8-7.0) K/uL Lymph # (Auto) (1.0-4.3) K/uL [place] # (Auto) (0.0-0.8) K/uL Eos # (Auto) (0.0-0.7) K/uL Baso # (Auto) (0.0-0.2) K/uL Neutrophils % (Manual) (50-75) % Lymphocytes % (Manual) (20-40) % Monocytes % (Manual) (0-10) % Platelet Estimate (NORMAL) Hypochromasia (manual) Poikilocytosis (manual Anisocytosis (manual) Target Cells Ovalocytes Padmini Cells Sodium (132-148) mmol/L Potassium (3.6-5.2) mmol/L Chloride (98-107) mmol/L Carbon Dioxide (22-30) mmol/L Anion Gap (10-20) BUN (7-17) mg/dL Creatinine (0.7-1.2) mg/dL Est GFR ( Amer) Est GFR (Non-Af Amer) POC Glucose (mg/dL) 341 H 306 H 313 H (65-110) mg/dL Random Glucose (65-105) mg/dL Calcium (8.6-10.4) mg/dl Total Bilirubin (0.2-1.3) mg/dL AST (14-36) U/L ALT (9-52) U/L Alkaline Phosphatase (38-126) U/L Total Protein (6.3-8.3) g/dL Albumin (3.5-5.0) g/dL Globulin (2.2-3.9) gm/dL Albumin/Globulin Ratio (1.0-2.1) Blood Type Antibody Screen 07/21/17 Range/Units 11:44 WBC (4.8-10.8) K/uL RBC (3.80-5.20) Mil/uL Hgb (11.0-16.0) g/dL Hct (34.0-47.0) % MCV (81.0-99.0) fL MCH (27.0-31.0) pg MCHC (33.0-37.0) g/dL RDW (11.5-14.5) % Plt Count (130-400) K/uL MPV (7.2-11.7) fL Neut % (Auto) (50.0-75.0) % Lymph % (Auto) (20.0-40.0) % [place] % (Auto) (0.0-10.0) % Eos % (Auto) (0.0-4.0) % Baso % (Auto) (0.0-2.0) % Neut # (Auto) (1.8-7.0) K/uL Lymph # (Auto) (1.0-4.3) K/uL [place] # (Auto) (0.0-0.8) K/uL Eos # (Auto) (0.0-0.7) K/uL Baso # (Auto) (0.0-0.2) K/uL Neutrophils % (Manual) (50-75) % Lymphocytes % (Manual) (20-40) % Monocytes % (Manual) (0-10) % Platelet Estimate (NORMAL) Hypochromasia (manual) Poikilocytosis (manual Anisocytosis (manual) Target Cells Ovalocytes Padmini Cells Sodium (132-148) mmol/L Potassium (3.6-5.2) mmol/L Chloride (98-107) mmol/L Carbon Dioxide (22-30) mmol/L Anion Gap (10-20) BUN (7-17) mg/dL Creatinine (0.7-1.2) mg/dL Est GFR ( Amer) Est GFR (Non-Af Amer) POC Glucose (mg/dL) (65-110) mg/dL Random Glucose (65-105) mg/dL Calcium (8.6-10.4) mg/dl Total Bilirubin (0.2-1.3) mg/dL AST (14-36) U/L ALT (9-52) U/L Alkaline Phosphatase (38-126) U/L Total Protein (6.3-8.3) g/dL Albumin (3.5-5.0) g/dL Globulin (2.2-3.9) gm/dL Albumin/Globulin Ratio (1.0-2.1) Blood Type A POSITIVE Antibody Screen Negative Laboratory Results - last 24 hr 07/21/17 07/22/17 07/22/17 11:44 11:37 17:22 WBC RBC Hgb Hct MCV MCH MCHC RDW Plt Count MPV Neut % (Auto) Lymph % (Auto) [place] % (Auto) Eos % (Auto) Baso % (Auto) Neut # (Auto) Lymph # (Auto) [place] # (Auto) Eos # (Auto) Baso # (Auto) Neutrophils % (Manual) Lymphocytes % (Manual) Monocytes % (Manual) Platelet Estimate Hypochromasia (manual) Poikilocytosis (manual Anisocytosis (manual) Target Cells Ovalocytes Padmini Cells Sodium Potassium Chloride Carbon Dioxide Anion Gap BUN Creatinine Est GFR ( Amer) Est GFR (Non-Af Amer) POC Glucose (mg/dL) 313 H 306 H Random Glucose Calcium Total Bilirubin AST ALT Alkaline Phosphatase Total Protein Albumin Globulin Albumin/Globulin Ratio Blood Type A POSITIVE Antibody Screen Negative 07/22/17 07/23/17 07/23/17 23:51 06:31 08:14 WBC 13.1 H RBC 2.86 L Hgb 9.3 L D Hct 27.6 L MCV 96.4 MCH 32.6 H MCHC 33.8 RDW 19.9 H Plt Count 200 MPV 8.6 Neut % (Auto) 94.1 H Lymph % (Auto) 2.5 L [place] % (Auto) 3.1 Eos % (Auto) 0.0 Baso % (Auto) 0.3 Neut # (Auto) 12.3 H Lymph # (Auto) 0.3 L [place] # (Auto) 0.4 Eos # (Auto) 0.0 Baso # (Auto) 0.0 Neutrophils % (Manual) 95 H Lymphocytes % (Manual) 2 L Monocytes % (Manual) 3 Platelet Estimate Normal Hypochromasia (manual) Slight Poikilocytosis (manual Slight Anisocytosis (manual) Slight Target Cells Slight Ovalocytes Slight Stover Cells Slight Sodium Potassium Chloride Carbon Dioxide Anion Gap BUN Creatinine Est GFR ( Amer) Est GFR (Non-Af Amer) POC Glucose (mg/dL) 341 H 303 H Random Glucose Calcium Total Bilirubin AST ALT Alkaline Phosphatase Total Protein Albumin Globulin Albumin/Globulin Ratio Blood Type Antibody Screen 07/23/17 08:14 WBC RBC Hgb Hct MCV MCH MCHC RDW Plt Count MPV Neut % (Auto) Lymph % (Auto) [place] % (Auto) Eos % (Auto) Baso % (Auto) Neut # (Auto) Lymph # (Auto) [place] # (Auto) Eos # (Auto) Baso # (Auto) Neutrophils % (Manual) Lymphocytes % (Manual) Monocytes % (Manual) Platelet Estimate Hypochromasia (manual) Poikilocytosis (manual Anisocytosis (manual) Target Cells Ovalocytes Padmini Cells Sodium 143 Potassium 5.6 H Chloride 121 H Carbon Dioxide 9 L* D Anion Gap 18 BUN 16 Creatinine 0.5 L Est GFR ( Amer) > 60 Est GFR (Non-Af Amer) > 60 POC Glucose (mg/dL) Random Glucose 301 H Calcium 8.0 L Total Bilirubin 0.2 AST 11 L D ALT 45 Alkaline Phosphatase 87 Total Protein 4.8 L Albumin 2.3 L Globulin 2.5 Albumin/Globulin Ratio 0.9 L Blood Type Antibody Screen Fingerstick Blood Sugar Results: 303 Review of Systems - Review of Systems Systems not reviewed;Unavailable: Acuity of Condition Assessment/Plan - Assessment and Plan (Free Text) Plan: Septic shock: exact etiology unknown: leukocytosis, lactic normalized -Shock: place TLC and infuse norepi to keep MAP >65. Vancomycin and Cefepime -h/o asthma:continue hydrocortisone and duonebs -at risk of CAD: continue asa, statin, av antonino sena contraindicated 2nd hypotension -ng tube feeds -AMS: peniding CT head -DM continue, Accuchecks q6H, ISS medium dose -dvt ppx heparin sq -pud ppx pepcid Goals of care: sons reqeusted DNR. -Expected to undergo terminal extubation pending family coming from [place] today.
--- NOTE | 2017-07-23 12:53 | CP.PCM.PN ---
Subjective - Date & Time of Evaluation Date of Evaluation: 07/23/17 Time of Evaluation: 09:00 - Subjective Subjective: cultures neg s/p SAH poor prognosis Objective - Vital Signs/Intake and Output Vital Signs (last 24 hours): Temp Pulse Resp BP Pulse Ox 97.6 F 91 H 20 108/68 100 07/23/17 09:00 07/23/17 12:16 07/23/17 12:16 07/23/17 12:16 07/23/17 12:16 Intake and Output: 07/23/17 07/23/17 06:59 18:59 Intake Total 1082.6 230.0 Output Total 350 Balance 732.6 230.0 - Medications Medications: Current Medications Acetaminophen (Tylenol 325 Mg Supp) 975 mg [place] ONCE PRN PRN Reason: Fever >100.4 F Albuterol/Ipratropium (Duoneb 3 Mg/0.5 Mg (3 Ml) Ud) 3 ml INH RQ6 [facility] Last Admin: 07/23/17 08:10 Dose: 3 ml Ascorbic Acid (Vitamin C 500 Mg Tab) 500 mg NG DAILY [facility] Last Admin: 07/23/17 09:19 Dose: 500 mg Docusate Sodium (Colace) 100 mg PO DAILY [facility] Last Admin: 07/23/17 09:09 Dose: Not Given Famotidine (Pepcid) 20 mg PO DAILY [facility] Last Admin: 07/23/17 09:18 Dose: 20 mg Folic Acid (Folic Acid) 1 mg PO DAILY [facility] Last Admin: 07/23/17 09:17 Dose: 1 mg Aztreonam 2 gm/ Sodium (Chloride) 100 mls @ 200 mls/hr IVPB Q8H [facility] Last Admin: 07/23/17 08:04 Dose: 200 mls/hr Metronidazole (Flagyl) 500 mg in 100 mls @ 100 mls/hr IVPB Q8 [facility] Last Admin: 07/23/17 05:52 Dose: 100 mls/hr Fluconazole (Diflucan Iv 200 Mg/100 Ml Ns) 100 mls @ 100 mls/hr IVPB DAILY [facility] Last Admin: 07/23/17 09:16 Dose: 100 mls/hr Sodium Chloride (Sodium Chloride 0.9%) 1,000 mls @ 75 mls/hr IV .[id number] [facility] Last Admin: 07/23/17 02:45 Dose: Not Given Vancomycin/Sodium Chloride (Vancomycin 1 Gm/Ns 200 Ml) 1 gm in 200 mls @ 166.7 mls/hr IVPB Q24H [facility] Stop: 07/27/17 16:16 Last Admin: 07/22/17 17:09 Dose: 166.7 mls/hr Insulin Aspart (Novolog) 0 unit SC Q6H [facility] PRN Reason: Protocol Last Admin: 07/23/17 12:50 Dose: 4 unit Multivitamins/Vitamin C (Multi-Delyn Liquid) 5 ml GT DAILY [facility] Last Admin: 07/23/17 10:55 Dose: 5 ml Zinc Sulfate (Zinc Sulfate 220 Mg Cap) 220 mg PO DAILY [facility] Last Admin: 07/23/17 09:19 Dose: 220 mg - Labs Labs: 07/23/17 08:14 07/23/17 08:14 PT 10.8 SECONDS (9.7-12.2) 07/20/17 10:42 INR 1.0 07/20/17 10:42 APTT 22 SECONDS (21-34) 07/20/17 17:41 Assessment and Plan (1) Hypokalemia Status: Acute (2) Respiratory failure Status: Acute (3) Septic shock Status: Acute (4) Subarach hem-deep coma Status: Acute
[2017-07-23 13:35] VITALS: TEMP 97.4
[2017-07-23] MEDS: Vancomycin 1 gm/NS 200 ml 1 GM/200 ML BAG IVPB SCH (16:44)
[2017-07-23 17:41] VITALS: BP 116/70; PULSE 97; RESP 0; O2SAT 32
--- NOTE | 2017-07-23 17:55 | CP.PCM.PRO ---
Pronouncement of Note - Clinical Findings Physical Exam: No Response Verbal/Painful Stimuli, Absent Heart & Breath Sounds , No Pupillary Light Reflex, No Corneal Reflex - Pronouncement Time Time of Pronouncement of : 17:19 - Notifications Pronouncement Notifications: Family Notified, Atending Notified Procurement Inspector Notified: No - Autopsy Autopsy Requested: No - N.[place]Mo Certificate N.[place]MoEDRS Number: [id number]
--- NOTE | 2017-07-23 19:45 | CP.PCM.PN ---
Subjective - Date & Time of Evaluation Date of Evaluation: 07/23/17 Time of Evaluation: 16:30 Objective - Vital Signs/Intake and Output Vital Signs (last 24 hours): Temp Pulse Resp BP Pulse Ox 97.4 F L 97 H 0 L 116/70 32 L 07/23/17 13:00 07/23/17 17:00 07/23/17 17:00 07/23/17 16:46 07/23/17 17:00 Intake and Output: 07/23/17 07/24/17 18:59 06:59 Intake Total 815.0 Balance 815.0 - Medications Medications: Current Medications Acetaminophen (Tylenol 325 Mg Supp) 975 mg [place] ONCE PRN PRN Reason: Fever >100.4 F Albuterol/Ipratropium (Duoneb 3 Mg/0.5 Mg (3 Ml) Ud) 3 ml INH RQ6 [facility] Last Admin: 07/23/17 14:02 Dose: 3 ml Ascorbic Acid (Vitamin C 500 Mg Tab) 500 mg NG DAILY [facility] Last Admin: 07/23/17 09:19 Dose: 500 mg Docusate Sodium (Colace) 100 mg PO DAILY [facility] Last Admin: 07/23/17 09:09 Dose: Not Given Famotidine (Pepcid) 20 mg PO DAILY [facility] Last Admin: 07/23/17 09:18 Dose: 20 mg Folic Acid (Folic Acid) 1 mg PO DAILY [facility] Last Admin: 07/23/17 09:17 Dose: 1 mg Aztreonam 2 gm/ Sodium (Chloride) 100 mls @ 200 mls/hr IVPB Q8H [facility] Last Admin: 07/23/17 16:45 Dose: Not Given Metronidazole (Flagyl) 500 mg in 100 mls @ 100 mls/hr IVPB Q8 [facility] Last Admin: 07/23/17 14:49 Dose: 100 mls/hr Fluconazole (Diflucan Iv 200 Mg/100 Ml Ns) 100 mls @ 100 mls/hr IVPB DAILY [facility] Last Admin: 07/23/17 09:16 Dose: 100 mls/hr Sodium Chloride (Sodium Chloride 0.9%) 1,000 mls @ 75 mls/hr IV .[id number] [facility] Last Admin: 07/23/17 17:56 Dose: Not Given Vancomycin/Sodium Chloride (Vancomycin 1 Gm/Ns 200 Ml) 1 gm in 200 mls @ 166.7 mls/hr IVPB Q24H [facility] Stop: 07/27/17 16:16 Last Admin: 07/23/17 16:44 Dose: Not Given Norepinephrine Bitartrate 4 mg (/ Sodium Chloride) 250 mls @ 15 mls/hr IV .[id number] PRN; Protocol; 4 MCG/MIN PRN Reason: TITRATE PER MD ORDER Last Admin: 07/23/17 13:36 Dose: 2 mcg/min, 7.5 mls/hr Insulin Aspart (Novolog) 0 unit SC Q6H IKE PRN Reason: Protocol Last Admin: 07/23/17 17:57 Dose: Not Given Multivitamins/Vitamin C (Multi-Delyn Liquid) 5 ml GT DAILY [facility] Last Admin: 07/23/17 10:55 Dose: 5 ml Zinc Sulfate (Zinc Sulfate 220 Mg Cap) 220 mg PO DAILY [facility] Last Admin: 07/23/17 09:19 Dose: 220 mg - Labs Labs: 07/23/17 08:14 07/23/17 08:14 PT 10.8 SECONDS (9.7-12.2) 07/20/17 10:42 INR 1.0 07/20/17 10:42 APTT 22 SECONDS (21-34) 07/20/17 17:41 Assessment and Plan (1) Hypokalemia Status: Acute (2) Respiratory failure Status: Acute (3) Septic shock Status: Acute (4) Acute urinary tract infection Status: Acute (5) Allergic urticaria Status: Acute (6) Asthma Status: Acute (7) Asthma exacerbation Status: Acute (8) Bronchitis Status: Acute (9) COPD exacerbation Status: Acute (10) Constipation Status: Acute (11) Dehydration symptoms Status: Acute (12) Dyspnea Status: Acute (13) Dyspnea Status: Acute (14) Elevated troponin Status: Acute (15) Fever Status: Acute (16) Influenza Status: Acute (17) Pneumonia Status: Acute (18) Prophylactic measure Status: Acute (19) Respiratory distress Status: Acute (20) Sepsis Status: Acute (21) UTI (urinary tract infection) Status: Acute (22) Weakness Status: Acute (23) GERD (gastroesophageal reflux disease) Status: Chronic (24) HTN (hypertension) Status: Chronic (25) Hyperlipidemia Status: Chronic (26) Hypertension Status: Chronic
== END 2017-07-23 20:33 | DRG 871 ==
LOC: C.ER 09:40 → C.9I 11:30
PROVIDERS: ADMIT Internal Medicine Nephrology; ATTEND Internal Medicine Nephrology
PROC: 5A1945Z Respiratory Ventilation, 24-96 Consecutive Hours (ICD-10-PCS; 2017-07-20)
PROC: 3E033XZ Introduction of Vasopressor into Peripheral Vein, Percutaneous Approach (ICD-10-PCS; 2017-07-20)
PROC: 02HV33Z Insertion of Infusion Device into Superior Vena Cava, Percutaneous Approach (ICD-10-PCS; 2017-07-20)
PROC: 30233R1 Transfusion of Nonautologous Platelets into Peripheral Vein, Percutaneous Approach (ICD-10-PCS; principal; 2017-07-21)
PROC: 30233N1 Transfusion of Nonautologous Red Blood Cells into Peripheral Vein, Percutaneous Approach (ICD-10-PCS; 2017-07-22)
DX: A41.9 Sepsis, unspecified organism (principal); R65.21 Severe sepsis with septic shock; J96.00 Acute respiratory failure, unspecified whether with hypoxia or hypercapnia; R40.20 Unspecified coma; I60.9 Nontraumatic subarachnoid hemorrhage, unspecified; J11.00 Influenza due to unidentified influenza virus with unspecified type of pneumonia; J44.0 Chronic obstructive pulmonary disease with (acute) lower respiratory infection; G93.1 Anoxic brain damage, not elsewhere classified; J45.901 Unspecified asthma with (acute) exacerbation; E86.0 Dehydration; J44.1 Chronic obstructive pulmonary disease with (acute) exacerbation; N39.0 Urinary tract infection, site not specified; K21.9 Gastro-esophageal reflux disease without esophagitis; I10 Essential (primary) hypertension; E78.00 Pure hypercholesterolemia, unspecified; Z85.01 Personal history of malignant neoplasm of esophagus; E87.6 Hypokalemia; Z66 Do not resuscitate; L50.0 Allergic urticaria; K59.00 Constipation, unspecified